=== PATIENT | male | born 1940 | race Caucasian/White ===

== ENCOUNTER 2016-05-09 08:11 | Outpatient (RCR) | payer MEDICARE ==
--- OUTSIDE RECORDS SUMMARY | 2016-03-28 08:13 | XMS REPORT | Continuity of Care Document ---
Author Author [facility] Organization [facility] Address Unknown Phone Unavailable Care Team Providers Care [employer] Developer Name Role Phone Faizan Lin PCP [phone] Source Comments Some departments are not documenting in the electronic medical record. If you do not see the information that you expected, contact Release of Information in the Health Information Management department at [phone] for further assistance in locating additional records.[facility] Active Allergies and Adverse Reactions Allergen Noted Date Severity Reactions Comments Adhesive 01/06/2013 High BLISTERS Skin tears Current Medications Prescription Sig. Disp. Refills Start End Date Status Date calcium carbonate Take 1,250 mg by mouth Active (OS-RANJIT) 1250 mg tablet daily. ketoconazole (NIZORAL) 2 Apply to affected area 120 mL 3 02/04/20 Active % topical shampoo three times weekly. Apply 15 to scalp three times a week traMADol (ULTRAM) 50 mg Take 1 Tab by mouth every 30 Tab 1 04/02/20 Active tablet 6 hours as needed for 15 Pain. tamsulosin (FLOMAX) 0.4 Take 1 Cap by mouth daily 30 Cap 11 04/07/20 Active mg capsule after breakfast. 15 amLODIPine (NORVASC) 10 Take 1 Tab by mouth 30 Tab 11 04/07/20 Active mg tablet daily. 15 doxazosin (CARDURA) 2 mg Take 1 Tab by mouth 30 Tab 0 06/03/19 Active tablet daily. 16 atorvastatin (LIPITOR) 10 Take 1 Tab by mouth 90 Tab 3 07/09/19 Active mg tablet daily. 16 aspirin 81 mg chewable Take 1 Tab by mouth 30 Tab 5 07/26/19 Active tablet daily. 16 furosemide (LASIX) 40 mg Take 1 Tab by mouth every 90 Tab 3 07/22/19 Active tablet morning. 16 everolimus (ZORTRESS) 0.5 Take 2 Tabs by mouth 11/10/19 Active mg tablet twice daily. 16 ciprofloxacin HCl (CIPRO) Take 250 mg by mouth Active 250 mg tablet twice daily. Pt takes for 10 days, 2 days remaining. carvedilol (COREG) 6.25 TAKE ONE TABLET BY MOUTH 60 Tab 1 01/14/20 Active mg tablet TWICE A DAY [address] TAKE ONE TABLET BY MOUTH 30 Tab 1 01/14/20 Active (PROTONIX) 40 mg tablet DAILY 16 niacin (NIACOR) 500 mg Take 1 Tab by mouth 270 Tab 3 02/01/20 Active tablet daily. Take with food. 16 tretinoin (RETIN-A) 0.1 % Apply topically to 20 g 3 02/25/20 Active topical cream affected area every 7 16 days. Weekly Active Problems Problem Noted Date Mohs defect of antihelix of right ear 10/13/2015 Skin cancer 09/20/2015 Nephrotic range proteinuria 07/25/2015 Anasarca 07/25/2015 History of biopsy 07/21/2015 Status post biopsy of kidney 07/21/2015 Mohs defect of auricle of left ear 04/07/2015 Nodule of flexor tendon sheath 11/27/2013 Pancreatitis, acute 09/14/2013 Overview: 09/15/13 Amylase 1092 Lipase 907 Inguinal hernia 03/04/2013 Postoperative ileus 01/10/2013 Overview: 01/09/13: Bowel regimen. Dulcolax suppository. 01/10/13: Dulcolax suppository 6hrs. M/M enema. IR for paracentesis to check for peritonitis. -After starting to vomit, pt was made NPO. KUB. KUB 01/10/13: Marked gaseous distention of small bowel, consistent with SBO. Lucency over right hemidiaphragm, concerning for free intraperitoneal air. IR paracentesis 01/10/13: 3.1L removed. Cultures negative. Cell count negative. 01/11/13: NGT placed overnight. Large output. 01/12/13: Relistor. Replace NGT output with IVF at 0.5:1 ratio. Ascites 01/10/2013 Overview: 17L removed intraoperatively. 01/10/13: IR paracentesis. 3.1L removed. Cultures and cell count negative. Hepatorenal syndrome (HCC) 01/08/2013 Leukocytosis 01/08/2013 Liver transplanted (HCC) 01/07/2013 Overview: -Date of Transplantation: 01/06/13 -Disease: ETOH Explant Pathology: *Explant Pathology: Recipient Liver: Cirrhosis (clinical history of non-alcoholic fatty liver disease) Fatty change 5-10% of hepatocytes. Lymph nodes: There is no evidence of malignancy in two lymph nodes (0/2). Gallbladder: Mild chronic cholecystitis and cholelithiasis. -Surgical technique: OLT with piggyback technique -Anastomosis: Duct to duct -Stent: Yes, 8Fr -Induction: 500mg Solumedrol, Simulect Intraop and POD#4 -Immunosuppression (Start date/goal/therapeutic/rejection/delirium): FK 01/10/13. Goal 10-12. -CMV: D+/R-; Valcyte -PJP: Bactrim DS MWF -Biliary/Arterial issues, hematoma/hemorrhage: Hematoma U/S 01/07/13: Mildly enlarged liver transplant without biliary ductal dilatation. Patent hepatic vasculature. High intrahepatic arterial resistance common with diffuse transplant edema. Elevated portal venous velocities with turbulent flow consistent with normal postop anastomotic edema. Small perihepatic fluid collection consistent with postop hematoma. Mild pelvic ascites. Incompletely decompressed bladder with indwelling forbes. Trace left pleural effusion. -Infection (pneumonia, UTI, Wound, Abscess): No postoperative infection -Reintubation: None -Return to OR: None -Delays to discharge: No problems with medication access, 24hr home care or residential placement. -Follow up: Transplant Surgery in 2 weeks. Hepatology in 3 months Endocrinology Immunosuppression (HCC) 01/07/2013 Overview: 01/06/13: Induced with 500mg Solumedrol and Simulect. Postop steroid taper and Cellcept 500mg BID. 01/07/13: Steroid taper. Change Cellcept to Myfortic 360mg BID. Hold CNI. 01/10/13: Simulect today. Start Prograf 2mg BID tonight. Goal 10-12. First level 01/12/13. 01/12/13: Thymo 100mg with premeds. 01/14/13: Increase prograf to 4mg BID. 01/15/13: Increase prograf to 6mg BID Thrombocytopenia (HCC) 01/07/2013 Volume overload 11/07/2012 Secondary hyperparathyroidism (of renal origin) 09/03/2012 Unspecified vitamin D deficiency 09/03/2012 Hypertension 08/02/2012 Overview: 01/09/13: Norvasc 5mg daily Abnormal cardiovascular stress test 08/02/2012 Overview: 08/02/12: No obstructive CAD per cath by Dr. Bruner History of alcohol abuse 08/02/2012 History of esophageal varices 08/02/2012 Type II diabetes mellitus (HCC) 08/02/2012 Overview: 01/06/13: Postop insulin gtt per [place] protocol. 01/07/13: Consult endocrine for DM management. Continue insulin gtt. 01/08/13: Stop insulin gtt. Lantus 50u + [facility] 01/09/13: [facility]. Novolog 8u with meals. Lantus 50u daily 01/10/13: Decrease Lantus to 20u. Liver failure (HCC) 08/02/2012 HTN (hypertension) 08/02/2012 Renal insufficiency 08/02/2012 Hypoglycemia 07/25/2012 Hepatic encephalopathy (HCC) 07/25/2012 Overview: Controlled with Lactulose and Rifaxamin Personal history of ascites 06/06/2012 Overview: Per patient report on admission, usually has 8-10L ascites drained weekly. Last paracentesis 01/01/13 in which 8L was removed. CKD (chronic kidney disease) 06/06/2012 Overview: Creatinine on admission 3.03 End-stage liver disease (HCC) 06/06/2012 Resolved Problems Problem Noted Date Resolved Date Acute kidney insufficiency 07/25/2012 08/02/2012 Ascites 06/06/2012 08/02/2012 Most Recent Encounters Date Type Specialty Providers Description 04/07/2016 [facility] General Surgery Johnny Archer MD BCC (basal cell carcinoma Encounter of skin) 03/27/2016 Refill Gastroenterology Bridget Yip MD 03/24/2016 Scan Only Transplant Surgery Eva Rothman 03/21/2016 Orders Only Transplant Surgery Pricilla Merino Liver replaced by transplant (HCC) 03/15/2016 Orders Only Transplant Surgery Minerva Pizano Liver replaced by transplant (HCC) 03/15/2016 Orders Only Transplant Surgery Pricilla Merino Liver replaced by transplant (HCC) 03/03/2016 Orders Only Transplant Surgery Wilma Mckeon Liver replaced by transplant (HCC) 03/01/2016 Orders Only Transplant Surgery Minerva Pizano Liver replaced by transplant (HCC) 02/29/2016 Orders Only Transplant Surgery Wilma Mckeon Liver replaced by transplant (HCC) 02/28/2016 Orders Only Transplant Surgery Pricilla Merino Liver replaced by transplant (HCC) 02/25/2016 Office Visit Dermatology Nidia Rosales MD Actinic keratoses (Primary Dx); History of basal cell carcinoma; H/O squamous cell carcinoma; Immunosuppression (HCC) 02/25/2016 Orders Only Transplant Surgery Faith Fry BSN Liver replaced by transplant (HCC) (Primary Dx) 02/16/2016 Orders Only Transplant Surgery Minerva Pizano Liver replaced by transplant (HCC) 02/16/2016 Orders Only Transplant Surgery Pricilla Merino Liver replaced by transplant (HCC) 02/14/2016 Prep for Case Plastic Surgery Johnny Archer MD 02/10/2016 Office Visit General Surgery Fortino Hamm MD CKD (chronic kidney disease), stage 5 (HCC) (Primary Dx) 02/07/2016 Orders Only Transplant Surgery Minerva Pizano Liver replaced by transplant (HCC) 02/03/2016 Orders Only Transplant Surgery Wilma Mckeon Liver replaced by transplant (HCC) 02/02/2016 Orders Only Transplant Surgery Wilma Mckeon Liver replaced by transplant (HCC) 02/01/2016 Office Visit Dermatology Rah Franks MD Actinic keratoses (Primary Dx); Multiple benign melanocytic nevi; History of basal cell carcinoma; H/O squamous cell carcinoma; Neoplasm of uncertain behavior of skin; Immunosuppression (HCC) 02/01/2016 [facility] Rah Franks MD Neoplasm of uncertain Encounter behavior of skin 01/27/2016 Office Visit Nephrology Lida Yang MBBS CKD (chronic kidney disease), stage 4 (severe) (HCC) (Primary Dx); Essential hypertension with goal blood pressure less than 140/90; Proteinuria; Liver transplanted (HCC) 01/24/2016 Orders Only Transplant Surgery Minerva Pizano Liver replaced by transplant (HCC) 01/24/2016 Orders Only Transplant Surgery Elizabeth Goetz History of liver transplant (HCC) 01/24/2016 Scan Only Transplant Surgery Regan Brock MD 01/21/2016 Orders Only Transplant Surgery Pricilla Merino History of liver transplant (HCC) 01/20/2016 Telephone Transplant Surgery Regan Brock MD Other - voice mail 01/20/2016 Telephone Transplant Surgery Regan Brock MD Other - voice mail 01/18/2016 Orders Only Transplant Surgery Elizabeth Goetz Liver replaced by transplant (HCC) 01/14/2016 Refill Gastroenterology Bridget Yip MD 01/14/2016 Refill Nephrology Lida Yang MBBS 01/13/2016 Office Visit General Surgery Fortino Hamm MD ESRD (end stage renal disease) (HCC) (Primary Dx); Kidney stone; CKD (chronic kidney disease), stage 4 (severe) (HCC) 01/12/2016 Orders Only Transplant Surgery Elizabeth Goetz Liver replaced by transplant (HCC) 01/03/2016 Orders Only Transplant Surgery Elizabeth Goetz Liver replaced by transplant (HCC) 12/29/2015 Orders Only Transplant Surgery Elizabeth Goetz Liver replaced by transplant (HCC) Immunizations Name Dates Previously Given Next Due Flu Vaccine=>3 YO 02/19/2015 (Historical) Pneumococcal Vaccine 02/19/2015 (23-Leia Adult) Social History Tobacco Use Types Packs/Day Years Used Date Former Smoker Quit: 05/28/1988 Smokeless Tobacco: Never Used Tobacco Cessation: Counseling Given: Yes Comments: Alcohol Use Drinks/Week oz/Week Comments No None since 2009 Last Filed Vital Signs Vital Sign Reading Time Taken Blood Pressure 159/63 02/10/2016 9:26 AM CDT Pulse 73 02/10/2016 9:26 AM CDT Temperature 36.6 C (97.8 F) 02/10/2016 9:26 AM CDT Respiratory Rate 14 02/10/2016 9:26 AM CDT Height 1.88 m (6' 2") 02/25/2016 1:12 PM CDT Weight 115.667 kg (255 lb) 02/25/2016 1:12 PM CDT Body Mass Index 32.73 02/25/2016 1:12 PM CDT Oxygen Saturation 95% 12/21/2015 10:00 AM CDT Plan of Care Date Type Specialty Providers Description 04/07/2016 Surgery General Surgery Norris Henriquez MD MOHS CLOSURE RIGHT [address] [place] [place] [address] [phone] (Fax) 04/07/2016 Appointment Dermatology Fabiana Rodriguez MD [address] [place] [address] [phone] (Fax) 05/04/2016 Appointment Nephrology Lida Yang MBBS [address] [place] [address] [phone] (Fax) 05/15/2016 Appointment Transplant Surgery Regan Brock MD [id number] [place] [address] [phone] (Fax) Health Maintenance Due Date Last Done Comments Physical (Comprehensive) 1947 Exam Pertussis Vaccine 1953 Tetanus Vaccine 09/29/1959 Dilated Eye Exam 1960 Foot Exam 1960 Shingles Vaccine 2002 Microalbumin 07/31/2015 07/30/2014, 10/31/2012, 08/29/2012 Additional history exists Influenza Vaccine 01/27/2016 02/19/2015, 02/28/2013 Prevnar/Pneumovax (#2) 02/20/2016 02/19/2015 Hba1c 03/25/2016 09/24/2015, 07/21/2015, 05/18/2014 Additional history exists Colorectal Cancer 11/04/2020 11/04/2010, 08/05/2010, 07/08/2010 Screening Procedures from Last 3 Months Procedure Name Priority Date/Time Associated Diagnosis Comments MIRELA VASC DUPLEX SCAN OF Routine 02/14/2016 ESRD (end stage renal HEMODIALYSIS GRAFT 12:00 AM CDT disease) (HCC) Results from Last 3 Months EVEROLIMUS BLOOD (03/14/2016 7:40 AM)Only the most recent of 7 results within the time period is included. Component Value Range Everolimus 7.6 3.0-8.0 ng/mL Narrative Outside Lab Verified by Pricilla Merino on 03/21/2016. GGTP (03/14/2016 7:40 AM)Only the most recent of 8 results within the time period is included. Component Value Range GGTP 11 0-65 U/L Specimen Blood Narrative Outside Lab Verified by Minerva Lima on 03/15/2016. PHOSPHORUS (03/14/2016 7:40 AM)Only the most recent of 7 results within the time period is included. Component Value Range Phosphorus 4.5 2.3-4.7 MG/DL Specimen Blood Narrative Outside Lab Verified by Pricilla Merino on 03/15/2016. MAGNESIUM (03/14/2016 7:40 AM)Only the most recent of 7 results within the time period is included. Component Value Range Magnesium 2.1 1.8-2.4 MG/DL Specimen Blood Narrative Outside Lab Verified by Pricilla Merino on 03/15/2016. COMPREHENSIVE METABOLIC PANEL (03/14/2016 7:40 AM)Only the most recent of 7 results within the time period is included. Component Value Range Sodium 141 135-145 MMOL/L Potassium 4.0 3.6-5.0 MMOL/L Chloride 110 (H) 98-107 MMOL/L CO2 20 (L) 21-32 MMOL/L Anion Gap 11 5-14 MMOL/L Blood Urea Nitrogen 47 (H) 7-18 MG/DL Creatinine 5.66 (H) 0.60-1.30 MG/DL eGFR Non 10 mL/min/1.73 M2 Glucose 133 (H) 70-105 H Calcium 9.0 8.5-10.1 MG/DL Total Bilirubin 0.4 0.1-1.0 MG/DL Alk Phosphatase 93 40-136 U/L AST (SGOT) 12 5-34 U/L ALT (SGPT) 15 0-55 U/L Total Protein 6.7 6.4-8.2 G/DL Albumin 3.9 3.2-4.5 G/DL Specimen Blood Narrative Outside Lab Verified by Pricilla Merino on 03/15/2016. CBC AND DIFF (03/14/2016 7:40 AM)Only the most recent of 7 results within the time period is included. Component Value Range White Blood Cells 3.9 (L) 4.3-11.0 10^3/uL RBC 3.73 (L) 4.35-5.85 10^6/uL Hemoglobin 9.9 (L) 13.3-17.7 G/DL Hematocrit 30 (L) 40-54 MCV 80 80-99 FL MCH 27 25-34 PG MCHC 33 32-36 G/DL RDW 15.9 (H) 10.0-14.5 % Platelet Count 203 130-400 10^3/uL Neutrophils 67 42-75 % Lymphocytes 19 12-44 % Monocytes 10 0-12 % Eosinophil 4 0-10 % Basophil 0 0-10 % Absolute Neutrophil Count 2.6 1.8-7.8 Absolute Lymph Count 0.7 (L) 1.0-4.0 Absolute Monocyte Count 0.4 0.0-1.0 Absolute Eosinophil Count 0.2 0.0-0.3 10^3/uL Absolute Basophil Count 0.0 0.0-0.1 10^3/uL Specimen Blood Narrative Outside Lab Verified by Pricilla Meirno on 03/15/2016. SKIN LESION DESTRUCTION (02/25/2016 1:31 PM)MIRELA VASC DUPLEX SCAN OF HEMODIALYSIS GRAFT (02/14/2016)SKIN LESION DESTRUCTION (02/01/2016 3:53 PM) SKIN BIOPSY/EXCISION OF SKIN LESION (02/01/2016 3:52 PM)SURGICAL PATHOLOGY (02/01/2016 9:07 AM) Component Value Range PATHOLOGY REPORT [email or web address] Guille Briones MD, PhD, Director of Anatomic Pathology Department of Pathology and Laboratory Medicine [address] [place] [id number] Surgical Pathology Office: [phone] SURGICAL PATHOLOGY REPORT NAME: LIZ HENDRICKS SURG PATH #: [id number] MR #: [id number] SPECIMEN CLASS: SR BILLING #: [id number] ALT ID #: LOCATION: DERM DATE OF PROCEDURE: 02/01/2016 AGE: 75 SEX: M DATE RECEIVED: 02/02/2016 : 1940 TIME RECEIVED: 09:07 PHYSICIAN: RAH FRANKS DATE OF REPORT: 02/03/2016 COPY TO: NIDIA ROSALES MD DATE OF PRINTIN02/03/2016 ################################################## ###################### Final Diagnosis: A. Right lateral scalp: --- Infiltrative basal cell carcinoma, deep margin positive Attestation: By this signature, I attest that I have personally formulated the final interpretation expressed in this report and that the above diagnosis is based upon my examination of the slides and/or other material indicated in this report. +++Electronically Signed Out By+++ gf/02/03/2016 Interpreted by: Alexis Dowling MD, Attending Physician 02/03/2016 ################################################## ###################### Material Received: A: right lateral scalp History: A. SCC > BCC > AK Gross Description: A. Labeled "right lateral scalp" is a 1.1 x 0.9 x 0.1 cm shave, trisected, all in A1. (jdn) jdn2/02/02/2016
[2016-03-28 08:24] LABS: BASOPHILS % (AUTO) 0 % (0-10); EOSINOPHILS # (AUTO) 0.1 10^3/uL (0.0-0.3); EOSINOPHILS % (AUTO) 2 % (0-10); LYMPHOCYTES # (AUTO) 0.7 X 10^3 (1.0-4.0); LYMPHOCYTES % (AUTO) 19 % (12-44); MEAN CORPUSCULAR HEMOGLOBIN 26 PG (25-34); MEAN CORPUSCULAR HGB CONC 33 G/DL (32-36); MEAN CORPUSCULAR VOLUME 79 FL (80-99); MEAN PLATELET VOLUME 8.8 FL (7.4-10.4); MONOCYTES # (AUTO) 0.3 X 10^3 (0.0-1.0); MONOCYTES % (AUTO) 8 % (0-12); NEUTROPHILS # (AUTO) 2.6 X 10^3 (1.8-7.8); NEUTROPHILS % (AUTO) 71 % (42-75); PLATELET COUNT 207 10^3/uL (130-400); RED BLOOD COUNT 3.92 10^6/uL (4.35-5.85); RED CELL DISTRIBUTION WIDTH 15.2 % (10.0-14.5); WHITE BLOOD COUNT 3.7 10^3/uL (4.3-11.0)
[2016-03-28 08:46] LABS: ALBUMIN 3.8 G/DL (3.2-4.5); BILIRUBIN,TOTAL 0.4 MG/DL (0.1-1.0); CREATININE SERUM 5.45 MG/DL (0.60-1.30); MAGNESIUM 2.3 MG/DL (1.8-2.4); PHOSPHORUS 4.6 MG/DL (2.3-4.7); POTASSIUM 4.3 MMOL/L (3.6-5.0); TOTAL PROTEIN 6.5 G/DL (6.4-8.2)
[2016-04-02 15:24] LABS: EVEROLIMUS 10.3 ng/mL (***)
[2016-04-11 08:44] LABS: BASOPHILS % (AUTO) 0 % (0-10); EOSINOPHILS # (AUTO) 0.1 10^3/uL (0.0-0.3); EOSINOPHILS % (AUTO) 4 % (0-10); LYMPHOCYTES # (AUTO) 0.7 X 10^3 (1.0-4.0); LYMPHOCYTES % (AUTO) 22 % (12-44); MEAN CORPUSCULAR HEMOGLOBIN 26 PG (25-34); MEAN CORPUSCULAR HGB CONC 33 G/DL (32-36); MEAN CORPUSCULAR VOLUME 80 FL (80-99); MEAN PLATELET VOLUME 8.5 FL (7.4-10.4); MONOCYTES # (AUTO) 0.4 X 10^3 (0.0-1.0); MONOCYTES % (AUTO) 13 % (0-12); NEUTROPHILS # (AUTO) 2.1 X 10^3 (1.8-7.8); NEUTROPHILS % (AUTO) 62 % (42-75); PLATELET COUNT 200 10^3/uL (130-400); RED BLOOD COUNT 3.73 10^6/uL (4.35-5.85); RED CELL DISTRIBUTION WIDTH 15.2 % (10.0-14.5); WHITE BLOOD COUNT 3.4 10^3/uL (4.3-11.0)
[2016-04-11 09:06] LABS: ALANINE AMINOTRANSFERASE < 6 U/L (0-55); ALBUMIN 3.7 G/DL (3.2-4.5); ANION GAP 11 MMOL/L (5-14); ASPARTATE AMINO TRANSFERASE 16 U/L (5-34); BILIRUBIN,TOTAL 0.3 MG/DL (0.1-1.0); BLOOD UREA NITROGEN 41 MG/DL (7-18); BUN/CREATININE RATIO 8; CALCIUM 8.8 MG/DL (8.5-10.1); CARBON DIOXIDE 22 MMOL/L (21-32); CHLORIDE 108 MMOL/L (98-107); CREATININE SERUM 4.92 MG/DL (0.60-1.30); GFR ESTIMATED 12; GLUCOSE 125 MG/DL (70-105); MAGNESIUM 1.9 MG/DL (1.8-2.4); PHOSPHORUS 5.3 MG/DL (2.3-4.7); POTASSIUM 3.9 MMOL/L (3.6-5.0); SODIUM 141 MMOL/L (135-145); TOTAL PROTEIN 6.5 G/DL (6.4-8.2)
[2016-04-14 15:23] LABS: EVEROLIMUS 6.7 ng/mL (***)
[2016-04-25 08:29] LABS: BASOPHILS % (AUTO) 0 % (0-10); EOSINOPHILS # (AUTO) 0.1 10^3/uL (0.0-0.3); EOSINOPHILS % (AUTO) 4 % (0-10); LYMPHOCYTES # (AUTO) 0.8 X 10^3 (1.0-4.0); LYMPHOCYTES % (AUTO) 25 % (12-44); MEAN CORPUSCULAR HEMOGLOBIN 26 PG (25-34); MEAN CORPUSCULAR HGB CONC 33 G/DL (32-36); MEAN CORPUSCULAR VOLUME 79 FL (80-99); MEAN PLATELET VOLUME 8.5 FL (7.4-10.4); MONOCYTES # (AUTO) 0.3 X 10^3 (0.0-1.0); MONOCYTES % (AUTO) 9 % (0-12); NEUTROPHILS % (AUTO) 62 % (42-75); PLATELET COUNT 191 10^3/uL (130-400); RED BLOOD COUNT 3.99 10^6/uL (4.35-5.85); RED CELL DISTRIBUTION WIDTH 15.4 % (10.0-14.5); WHITE BLOOD COUNT 3.3 10^3/uL (4.3-11.0)
[2016-04-25 08:46] LABS: ALBUMIN 3.9 G/DL (3.2-4.5); BILIRUBIN,TOTAL 0.4 MG/DL (0.1-1.0); CALCIUM 8.8 MG/DL (8.5-10.1); CREATININE SERUM 5.77 MG/DL (0.60-1.30); MAGNESIUM 2.2 MG/DL (1.8-2.4); PHOSPHORUS 4.8 MG/DL (2.3-4.7); TOTAL PROTEIN 6.4 G/DL (6.4-8.2)
[2016-04-30 10:48] LABS: EVEROLIMUS 8.4 ng/mL (***)
[~2016-05-09 08:11] MED LIST: ACET325T49 PO; AMLO10TA2 PO; ASPI-586 PO; ASPI-983 PO; ATOR10TA66 PO; CALTRATE 600 +1 EACH PO; CARV6.252 PO; D50KC PO; DIPH50VI2 IV; DOXA2TAB PO; DOXA2TAB2 PO; DOXA4TAB2 PO; ENOX30DI4 SC; EVER0.5T PO; FLUO40CR8 TOP; FURO40TA4 PO; GLIM2TAB PO; HYDR-3922 PO; KETO120S11 TOP; LACT10SO33 PO; LORA10TA76 PO; MORP5VIA IV; MULT-608 PO; MYCO360T PO; Multivitamins/Minerals Therap PO; ONDA4VIA28 IV; OXYC-471 PO; OXYC5TAB49 PO; PNT40TEC PO; SENN-20 PO; SPIR100T28 PO; TACR1CAP PO; TAMS0.4C2 PO; TRAM50TA2 PO; TRAZ-28 PO; XIFAXAN PO; [UNRECOGNIZED DRUG - OTHER]; [UNRECOGNIZED DRUG - OTHER]
[2016-05-09 08:23] LABS: BASOPHILS % (AUTO) 0 % (0-10); EOSINOPHILS # (AUTO) 0.1 10^3/uL (0.0-0.3); EOSINOPHILS % (AUTO) 2 % (0-10); LYMPHOCYTES # (AUTO) 0.9 X 10^3 (1.0-4.0); LYMPHOCYTES % (AUTO) 24 % (12-44); MEAN CORPUSCULAR HEMOGLOBIN 26 PG (25-34); MEAN CORPUSCULAR HGB CONC 33 G/DL (32-36); MEAN CORPUSCULAR VOLUME 79 FL (80-99); MEAN PLATELET VOLUME 8.6 FL (7.4-10.4); MONOCYTES # (AUTO) 0.4 X 10^3 (0.0-1.0); MONOCYTES % (AUTO) 10 % (0-12); NEUTROPHILS # (AUTO) 2.5 X 10^3 (1.8-7.8); NEUTROPHILS % (AUTO) 64 % (42-75); PLATELET COUNT 182 10^3/uL (130-400); RED BLOOD COUNT 4.02 10^6/uL (4.35-5.85); RED CELL DISTRIBUTION WIDTH 15.7 % (10.0-14.5); WHITE BLOOD COUNT 3.9 10^3/uL (4.3-11.0)
[2016-05-09 08:43] LABS: BILIRUBIN,TOTAL 0.4 MG/DL (0.1-1.0); CALCIUM 8.9 MG/DL (8.5-10.1); CREATININE SERUM 6.33 MG/DL (0.60-1.30); MAGNESIUM 2.2 MG/DL (1.8-2.4); PHOSPHORUS 5.6 MG/DL (2.3-4.7); POTASSIUM 3.8 MMOL/L (3.6-5.0); TOTAL PROTEIN 6.9 G/DL (6.4-8.2)
[2016-05-15 09:45] LABS: EVEROLIMUS 7.5 ng/mL (***)
== END 2016-06-26 | disposition home or self-care (01) ==
LOC: LAB 08:11
PROVIDERS: ATTEND Internal Medicine
DX: Z48.298 Encounter for aftercare following other organ transplant (principal); Z94.4 Liver transplant status
CPT/HCPCS: 36415; 80053; 80061; 80299; 81000; 82306; 82977; 83735; 84100; 85025

== ENCOUNTER → 2016-06-09 | Outpatient (CLI) | payer MEDICARE ==
--- OUTSIDE RECORDS SUMMARY | 2016-06-09 13:22 | XMS REPORT | Continuity of Care Document ---
Author Author [facility] Organization [facility] Address Unknown Phone Unavailable Care Team Providers Care Movie Operator Name Role Phone Faizan Lin PCP [phone] Source Comments Some departments are not documenting in the electronic medical record. If you do not see the information that you expected, contact Release of Information in the Health Information Management department at [phone] for further assistance in locating additional records.[facility] Active Allergies and Adverse Reactions Allergen Noted Date Severity Reactions Comments Adhesive 01/06/2013 High BLISTERS Skin tears Current Medications Prescription Sig. Disp. Refills Start End Date Status Date calcium carbonate Take 1,250 mg by mouth Active (OS-RANJIT) 1250 mg tablet daily. doxazosin (CARDURA) 2 mg Take 1 Tab [...] 11/10/19 Active mg tablet twice daily. 16 niacin (NIACOR) 500 mg Take 1 Tab by mouth 270 Tab 3 02/01/20 Active tablet daily. Take with food. 16 tretinoin (RETIN-A) 0.1 % Apply topically to 20 g 3 02/25/20 Active topical cream affected area every 7 16 days. Weekly carvedilol (COREG) 6.25 TAKE ONE TABLET BY MOUTH 60 Tab 5 04/03/20 Active mg tablet TWICE A DAY 16 amLODIPine (NORVASC) 10 TAKE ONE TABLET BY MOUTH 30 Tab 10 04/10/20 Active mg tablet DAILY 16 tamsulosin (FLOMAX) 0.4 TAKE ONE CAPSULE BY MOUTH 30 Cap 11 05/04/20 Active mg capsule DAILY AFTER BREAKFAST 16 everolimus (ZORTRESS) 0.5 Take 2 Tabs by mouth 120 Tab 11 05/24/20 Active mg tablet twice daily. Indications: 16 PREVENTION OF LIVER TRANSPLANT REJECTION pantoprazole DR TAKE ONE TABLET BY MOUTH 30 Tab 0 05/30/19 Active (PROTONIX) 40 mg tablet DAILY 17 PEG 1955-Aetphznvtrmd-Dle Take per prep 2 Each 0 06/02/19 Active C (MOVIPREP) instructions 17 100-7.5-2.691 gram pwpk PEG 3350-Electrolytes Mix as directed on 4000 mL 0 06/05/19 Active (GOLYTELY) oral solution package. Drink 240ml 17 (8oz) every 10 minutes until gone. Refrigerate once mixed. ketoconazole (NIZORAL) 2 Apply to affected area 120 mL 3 02/04/20 05/15/20 Discontin % topical shampoo three times weekly. Apply 15 16 ued to scalp three times a week everolimus (ZORTRESS) 0.5 Take 4 Tabs by mouth 240 Tab 11 04/30/20 05/22/20 Discontin mg tablet twice daily. [address] TAKE ONE TABLET BY MOUTH 30 Tab 0 05/02/20 05/29/19 Discontin (PROTONIX) 40 mg tablet DAILY 16 17 ued Active Problems Problem Noted Date Mohs defect of right scalp 04/07/2016 Mohs defect of antihelix of right ear [...] with medication access, 24hr home care or local company intermodal truck driver placement. -Follow up: Transplant Surgery in 2 [...] 08/02/2012 Overview: 01/06/13: Postop insulin gtt per [place] protocol. 01/07/13: Consult endocrine for DM management. [...] Recent Encounters Date Type Specialty Providers Description 07/14/2016 Hospital Regan Brock MD Colon cancer screening Encounter 06/09/2016 Telephone Transplant Surgery Regan Brock MD Other - colonoscopy 06/05/2016 Telephone Transplant Surgery Jennifer Perez LPN Medication Change Request 06/05/2016 Orders Only Transplant Surgery Jennifer Perez LPN 06/02/2016 Telephone Transplant Surgery Regan Brock MD Other 06/01/2016 Telephone Nephrology Lida Yang MBBS Other - Dialysis 05/31/2016 Telephone Transplant Surgery Rebeca Rosario Procedure - Bone Density scheduled 05/30/2016 Office Visit Dermatology Mohinder Snider MD Actinic keratosis (Primary Dx); Seborrheic dermatitis 05/30/2016 Telephone Transplant Surgery Regan Brock MD Other - return call 05/29/2016 Refill Gastroenterology Bridget Yip MD 05/26/2016 Orders Only Transplant Surgery Luis Felipe Fry BSN Osteoporosis screening (Primary Dx); Disorder of bone density and structure, unspecified 05/22/2016 Refill Transplant Surgery Regan Brock MD Liver replaced by transplant (HCC) (Primary Dx) 05/18/2016 Orders Only Transplant Surgery Minerva Pizano Liver replaced by transplant (HCC) 05/17/2016 Orders Only Transplant Surgery Luis Felipe Fry BSN Liver replaced by transplant (HCC) (Primary Dx) 05/15/2016 Office Visit Transplant Surgery Regan Brock MD Liver transplanted (HCC) (Primary Dx) 05/15/2016 Prep for Case Transplant Surgery Luis Felipe Fry BSN 05/12/2016 Orders Only Transplant Surgery Chacorta Hdz Liver replaced by transplant (HCC) 05/11/2016 Scan Only Transplant Surgery Regan Brock MD 05/11/2016 Telephone Transplant Surgery Rebeca Rosario Patient Reminder Call 05/10/2016 Orders Only Transplant Surgery Pricilla Merino Liver replaced by transplant (HCC) 05/08/2016 Office Visit Dermatology Luis Felipe Palomino Immunosuppressed status ([facility]) (Primary Dx); Actinic keratosis; Neoplasm of uncertain behavior of skin 05/08/2016 [facility] Rah Franks MD Neoplasm of uncertain Encounter behavior of skin 05/04/2016 Office Visit Nephrology Lida Yang MBBS CKD (chronic kidney disease), stage 5 (HCC) (Primary Dx); Proteinuria; Essential hypertension; Edema, unspecified type 05/02/2016 Orders Only Transplant Surgery Kiara Merinoyla Liver replaced by transplant (HCC) 05/02/2016 Refill Transplant Surgery Regan Brock MD 05/02/2016 Refill Gastroenterology Bridget Yip MD 04/26/2016 Office Visit Plastic Surgery Norris Mane MD Skin cancer (Primary Dx); Mohs defect of right scalp 04/26/2016 Orders Only Transplant Surgery Kiara Merinoyla Liver replaced by transplant (HCC) 04/25/2016 Orders Only Transplant Surgery Wilma Mckeon Liver replaced by transplant (HCC) 04/17/2016 Orders Only Transplant Surgery Minerva Pizano Liver replaced by transplant (HCC) 04/17/2016 Orders Only Transplant Surgery Kiara Merinoyla Liver replaced by transplant (HCC) 04/13/2016 Orders Only Transplant Surgery Luis Felipe Fry BSN Liver replaced by transplant (HCC) (Primary Dx) 04/12/2016 Office Visit Plastic Surgery Norris Mane MD Mohs defect of right scalp (Primary Dx) 04/12/2016 Orders Only Transplant Surgery Kiara Merinoyla Liver replaced by transplant (HCC); Disorder of bone density and structure, unspecified 04/11/2016 Orders Only Transplant Surgery Wilma Mckeon Liver replaced by transplant (HCC) 04/10/2016 Refill Transplant Surgery Regan Brock MD 04/07/2016 Procedure visit Dermatology Mae, Basal cell carcinoma of MD Jasmin scalp (Primary Dx) 04/07/2016 Surgery Norris Mane MD MOHS CLOSURE RIGHT LATERAL SCALP WITH LOCAL TISSUE REARRANGEMENT 15CM 04/06/2016 Anesthesia Altenhofen, Gregoria, Event SRNA 04/04/2016 Telephone Dermatology Fabiana Rodriguez MD Provider Discussion About Patient 04/03/2016 Orders Only Transplant Surgery MerinoKiaraPricilla Liver replaced by transplant (HCC) 04/03/2016 Refill Nephrology Lida Yang MBBS 04/03/2016 Telephone Transplant Surgery Luis Felipe Fry BSN Labs Only 04/03/2016 Orders Only Transplant Surgery Luis Felipe Fry BSN Liver replaced by transplant (HCC) (Primary Dx); Disorder of bone density and structure, unspecified 03/30/2016 Orders Only Transplant Surgery Pricilla Merino Liver replaced by transplant (HCC) 03/29/2016 Orders Only Transplant Surgery Minerva Pizano Liver replaced by transplant (HCC) 03/28/2016 Documentation Transplant Surgery AbrahamRebeca frias 03/27/2016 Refill Gastroenterology Bridget Yip MD 03/24/2016 Scan Only Transplant Surgery Eva Rothman 03/21/2016 Orders Only Transplant Surgery Pricilla Merino Liver replaced by transplant (HCC) 03/15/2016 Orders Only Transplant Surgery Minerva Pizano Liver replaced by transplant (HCC) 03/15/2016 Orders Only Transplant Surgery Pricilla Merino Liver replaced by transplant (HCC) Immunizations Name [...] Vital Sign Reading Time Taken Blood Pressure 145/65 05/15/2016 10:57 AM CUSTOMER SUPPORT COORDINATOR Pulse 83 05/15/2016 10:57 AM CUSTOMER SUPPORT COORDINATOR Temperature 36.7 C (98 F) 05/15/2016 10:57 AM CUSTOMER SUPPORT COORDINATOR Respiratory Rate 16 05/15/2016 10:57 AM CUSTOMER SUPPORT COORDINATOR Height 1.88 m (6' 2") 05/30/2016 2:58 PM CUSTOMER SUPPORT COORDINATOR Weight 115.667 kg (255 lb) 05/30/2016 2:58 PM CUSTOMER SUPPORT COORDINATOR Body Mass Index 32.73 05/30/2016 2:58 PM CUSTOMER SUPPORT COORDINATOR Oxygen Saturation 95% 05/15/2016 10:57 AM CUSTOMER SUPPORT COORDINATOR Plan of Care Date Type Specialty Providers Description 06/27/2016 Appointment Dermatology Rah Franks MD [address] [facility] [address] [place] [address] [phone] (Fax) 07/14/2016 Surgery Regan Brock MD COLONOSCOPY [address] [facility] [address] [place] [address] [phone] (Fax) 05/14/2017 Appointment Transplant Surgery Regan Brock MD [address] [facility] [address] [place] [address] [phone] (Fax) Health Maintenance Due Date Last Done [...] Procedure Name Priority Date/Time Associated Diagnosis Comments PROCEDURES-SCAN 04/10/2016 Results for this 1:45 PM CUSTOMER SUPPORT COORDINATOR procedure are in the results section. MOHS CLOSURE RIGHT 04/07/2016 BCC (basal cell carcinoma LATERAL SCALP WITH LOCAL 1:35 PM CUSTOMER SUPPORT COORDINATOR of skin) TISSUE REARRANGEMENT 15CM Special Needs 04/04 PER CHANGE FORM REC'D ON 03/20, PROVIDER CHANGED FROM DR. BAXTER TO DR. MANE BY ON 03/20 @ 1437 - C. KIERSTEN FERNÁNDEZ ([id number]) Results from Last 3 Months SKIN LESION DESTRUCTION (05/30/2016 3:18 PM)EVEROLIMUS BLOOD (05/09/2016 8:15 AM)Only the most recent of 5 results within the time period is included. Component Value Range Everolimus 7.5 ng/mL Narrative Outside Lab Verified by Minerva Lima on 05/17/2016. GGTP (05/09/2016 8:15 AM)Only the most recent of 5 results within the time period is included. Component Value Range GGTP 10 0-65 U/L Specimen Blood Narrative Outside Lab Verified by Chacorta Hdz on 05/12/2016. PHOSPHORUS (05/09/2016 8:15 AM)Only the most recent of 5 results within the time period is included. Component Value Range Phosphorus 5.6 (H) 2.3-4.7 H Specimen Blood Narrative Outside Lab Verified by Pricilla Merino on 05/10/2016. MAGNESIUM (05/09/2016 8:15 AM)Only the most recent of 5 results within the time period is included. Component Value Range Magnesium 2.2 1.8-2.4 MG/DL Specimen Blood Narrative Outside Lab Verified by Pricilla Merino on 05/10/2016. COMPREHENSIVE METABOLIC PANEL (05/09/2016 8:15 AM)Only the most recent of 5 results within the time period is included. Component Value Range Sodium 140 135-145 MMOL/L Potassium 3.8 3.6-5.0 MMOL/L Chloride 109 (H) 98-107 MMOL/L CO2 18 (L) 21-32 MMOL/L Anion Gap 13 5-14 MMOL/L Blood Urea Nitrogen 53 (H) 7-18 MG/DL Creatinine 6.33 (H) 0.60-1.30 MG/DL eGFR Non 9 mL/min/1.73 M2 Glucose 122 (H) 70-105 H Calcium 8.9 8.5-10.1 MG/DL Total Bilirubin 0.4 0.1-1.0 MG/DL Alk Phosphatase 96 40-136 U/L AST (SGOT) 13 5-34 U/L ALT (SGPT) 14 0-55 U/L Total Protein 6.9 6.4-8.2 G/DL Albumin 4.0 3.2-4.5 G/DL Specimen Blood Narrative Outside Lab Verified by Pricilla Merino on 05/10/2016. CBC AND DIFF (05/09/2016 8:15 AM)Only the most recent of 5 results within the time period is included. Component Value Range White Blood Cells 3.9 (L) 4.3-11.0 10^3/uL RBC 4.02 (L) 4.35-5.85 10^6/uL Hemoglobin 10.6 (L) 13.3-17.7 G/DL Hematocrit 32 (L) 40-54 MCV 79 (L) 80-99 FL MCH 26 25-34 PG MCHC 33 32-36 G/DL RDW 15.7 (H) 10.0-14.5 % Platelet Count 182 130-400 10^3/uL Neutrophils 64 42-75 % Lymphocytes 24 12-44 % Monocytes 10 0-12 % Eosinophil 2 0-10 % Basophil 0 0-10 % Absolute Neutrophil Count 2.5 1.8-7.8 Absolute Lymph Count 0.9 (L) 1.0-4.0 Absolute Monocyte Count 0.4 0.0-1.0 Absolute Eosinophil Count 0.1 0.0-0.3 10^3/uL Absolute Basophil Count 0.0 0.0-0.1 10^3/uL Specimen Blood Narrative Outside Lab Verified by Pricilla Merino on 05/10/2016. [id number]-[id number] (05/08/2016 3:33 PM)SURGICAL PATHOLOGY (05/08/2016 8: 29 AM)Only the most recent of 2 results within the time period is included. Component Value Range PATHOLOGY REPORT [facility] [email or web address] Luana Lawler MD, PhD, Director of Anatomic Pathology Department of Pathology and Laboratory Medicine [address] [place] [id number] Surgical Pathology Office: [phone] SURGICAL PATHOLOGY REPORT NAME: LIZ HENDRICKS SURG PATH #: [id number] MR #: [id number] SPECIMEN CLASS: SR BILLING #: [id number] ALT ID #: LOCATION: DERM DATE OF PROCEDURE: 05/08/2016 AGE: 75 SEX: M DATE RECEIVED: 05/09/2016 : 1940 TIME RECEIVED: 08:29 PHYSICIAN: RAH FRANKS DATE OF REPORT: 05/10/2016 COPY TO: LUIS FELIPE ANTONY MD DATE OF PRINTIN05/10/2016 ################################################## ###################### Final Diagnosis: A. Left superior scalp: -- Hypertrophic actinic keratosis Attestation: By this signature, I attest that I have personally formulated the final interpretation expressed in this report and that the above diagnosis is based upon my examination of the slides and/or other material indicated in this report. +++Electronically Signed Out By+++ gf/05/10/2016 Interpreted by: Alexis Dowling MD, Attending Physician 05/10/2016 ################################################## ###################### Material Received: A: left superior scalp History: A. HAK versus SCC Gross Description: A. Labeled "left superior scalp" is a 1.1 x 1.1 x 0.2 cm shave, trisected, all in A1. (jdn) jdn2/05/09/2016 POC URINE DIPSTICK AUTO READ (05/04/2016) Component Value Range Urine Glucose POC 100 Urine Bilirubin POC neg Urine Ketone POC neg Urine Specific [place] 1.020 POC Urine Blood POC 50 Urine PH POC 5 Urine Protein POC 500 Urine Urobilinogen POC norm Urine Nitrite POC neg Urine Leukocytes POC neg Specimen Urine URINALYSIS MICROSCOPIC REFLEX TO CULTURE (04/11/2016 8:45 AM) Component Value Range RBCs,UA NONE /HPF WBCs,UA RARE /HPF Bacteria,UA NEGATIVE /HPF Squamous Epithelial Cells RARE /HPF Specimen Urine Narrative Outside Lab Verified by Wilma Mckeon on 04/11/2016. URINALYSIS DIPSTICK REFLEX TO CULTURE (04/11/2016 8:45 AM) Component Value Range Color,UA yellow Turbidity,UA clear pH,UA 5 5-9 Specific [place]-Urine 1.020 1.016-1.022 Protein,UA 4+ (A) NEGATIVE Glucose,UA 2+ (A) NEGATIVE Blood,UA 3+ (A) negative Ketones,UA NEGATIVE NEGATIVE Nitrite,UA negative negative Bilirubin,UA negative negative Urobilinogen,UA normal normal Leukocytes,UA NEGATIVE NEGATIVE Specimen Urine Narrative Outside Lab Verified by Wilma Mckeon on 04/11/2016. 25-OH VITAMIN D (D2 + D3) (04/11/2016 8:38 AM) Component Value Range Vitamin D(25-OH)Total 30 30-100 ng/mL Specimen Blood Narrative Outside Lab Verified by Pricilla Merino on 04/12/2016. LIPID PROFILE (04/11/2016 8:38 AM) Component Value Range Triglycerides 163 (H) <150 MG/DL Cholesterol 133 <200 MG/DL HDL 37 (L) 40-60 MG/DL LDL 62 1-129 MG/DL VLDL 33 5-40 MG/DL Specimen Blood Narrative Outside Lab Verified by Pricilla Merino on 04/12/2016. PROCEDURES-SCAN (04/10/2016 1:45 PM) Narrative Ordered by an unspecified provider. POC GLUCOSE (04/07/2016 1:41 PM) Component Value Range Glucose, POC 105 (H) 70-100 MG/DL MOHS PROCEDURE (04/07/2016 1:13 PM)
--- NOTE | 2016-06-09 15:39 | Diagnostic Imaging Report ---
INDICATION: End-stage renal disease requiring dialysis. TECHNIQUE: Two view chest at 1:58 PM CORRELATION STUDY: 02/05/2015 FINDINGS: The heart size, mediastinal configuration and pulmonary vasculature are within normal limits. The lung thomason are hyperinflated. The frontal projection has very slight increased density of the right lung base, not appreciable on the lateral projection, may be overlapping summation shadow. No definitive infiltrate. Visualized osseous structures are unremarkable. IMPRESSION: 1. Hyperinflated lung thomason without evidence for acute abnormality of the chest. Dictated by: Dictated on workstation # [id number]
[2016-06-09 21:15] LABS: HEPATITIS B SURFACE AB INDEX <3.10 mIU/mL (>=10.00)
[2016-06-09 21:41] LABS: HEPATITIS B CORE TOTAL INDEX <0.07 Index (<=0.50)
[2016-06-12 08:19] LABS: HEPATITIS B CORE TOTAL INTERP Non-Reactive
[2016-06-12 08:35] LABS: HEPATITIS B SURFACE AB INTERP Non-Immune (Immune)
== END ==
LOC: RAD 13:13
PROVIDERS: ATTEND Internal Medicine Nephrology
DX: N18.6 End stage renal disease (principal)
CPT/HCPCS: 36415; 71020; 86704; 86706; 86803; 87340

== ENCOUNTER → 2016-06-15 | Outpatient (CLI) | payer MEDICARE ==
--- OUTSIDE RECORDS SUMMARY | 2016-06-15 10:11 | XMS REPORT | Continuity of Care Document ---
Author Author [facility] Organization [facility] Address Unknown Phone Unavailable Care Team Providers Care Supervisor Extrusion Name Role Phone Faizan Lin PCP [phone] Source Comments Some departments are not documenting in the electronic medical record. If you do not see the information that you expected, contact Release of Information in the Health Information Management department at [phone] for further assistance in locating additional records.[facility] Active Allergies and Adverse Reactions Allergen [...] (PROTONIX) 40 mg tablet DAILY 17 PEG 1699-Algyvgbquoxc-Oug Take per prep 2 Each 0 06/02/19 Active C (MOVIPREP) instructions 17 100-7.5-2.691 gram pwpk PEG 3350-Electrolytes Mix as directed on 4000 mL 0 06/05/19 Active (GOLYTELY) oral solution package. Drink 240ml 17 (8oz) every 10 minutes until gone. Refrigerate once mixed. everolimus (ZORTRESS) 0.5 Take 4 Tabs by [...] with medication access, 24hr home care or alf placement. -Follow up: Transplant Surgery in 2 [...] 08/02/2012 Overview: 01/06/13: Postop insulin gtt per [facility] protocol. 01/07/13: Consult endocrine for DM management. [...] Encounters Date Type Specialty Providers Description 07/14/2016 [facility] Regan Brock MD Colon cancer screening [...] by transplant (HCC) 05/08/2016 Office Visit Dermatology Teat Luis Felipe Méndez, Immunosuppressed status ([facility]) (Primary Dx); Actinic keratosis; Neoplasm of uncertain behavior of skin 05/08/2016 [facility] Rah Franks MD Neoplasm of uncertain Encounter behavior of skin 05/04/2016 Office Visit Nephrology Lida Yang MBBS CKD (chronic kidney disease), stage 5 (HCC) (Primary Dx); Proteinuria; Essential hypertension; Edema, unspecified type 05/02/2016 Orders Only Transplant Surgery MerinoKiaraPricilla Liver replaced by transplant (HCC) 05/02/2016 Refill Transplant Surgery Regan Brock MD 05/02/2016 Refill Gastroenterology Bridget Yip MD 04/26/2016 Office Visit Plastic Surgery Norris Mane MD Skin cancer (Primary Dx); Mohs defect of right scalp 04/26/2016 Orders Only Transplant Surgery Merino Pricilla Liver replaced by transplant (HCC) 04/25/2016 Orders Only Transplant Surgery Wilma Mckeon Liver replaced by transplant (HCC) 04/17/2016 Orders Only Transplant Surgery Minerva Pizano Liver replaced by transplant (HCC) 04/17/2016 Orders Only Transplant Surgery Merino Pricilla Liver replaced by transplant (HCC) 04/13/2016 Orders Only Transplant Surgery Luis Felipe Fry BSN Liver replaced by transplant (HCC) (Primary Dx) 04/12/2016 Office Visit Plastic Surgery Norris Mane MD Mohs defect of right scalp (Primary Dx) 04/12/2016 Orders Only Transplant Surgery MerinoKiaraPricilla Liver replaced by transplant (HCC); Disorder of bone density and structure, unspecified 04/11/2016 Orders Only Transplant Surgery MikeWilma stoddard Liver replaced by transplant (HCC) 04/10/2016 Refill Transplant Surgery Regan Brock MD 04/07/2016 Procedure visit Dermatology Mae, Basal cell carcinoma of MD Jasmin scalp (Primary Dx) 04/07/2016 Surgery Norris Mane MD MOHS CLOSURE RIGHT LATERAL SCALP WITH LOCAL TISSUE REARRANGEMENT 15CM 04/06/2016 Anesthesia Altenhofen, Gregoria, Event SRNA 04/04/2016 Telephone Dermatology Fabiana Rodriguez MD Provider Discussion About Patient 04/03/2016 Orders Only Transplant Surgery Merino Pricilla Liver replaced by transplant (HCC) 04/03/2016 Refill Nephrology Lida Yang MBBS 04/03/2016 Telephone Transplant Surgery Luis Felipe Fry BSN Labs Only 04/03/2016 Orders Only Transplant Surgery Luis Felipe Fry BSN Liver replaced by transplant (HCC) (Primary Dx); Disorder of bone density and structure, unspecified 03/30/2016 Orders Only Transplant Surgery Merino, Pricilla Liver replaced by transplant (HCC) 03/29/2016 Orders Only Transplant Surgery Minerva Pizano Liver replaced by transplant (HCC) 03/28/2016 Documentation Transplant Surgery Rebeca Rosario 03/27/2016 Refill Gastroenterology Bridget Yip MD 03/24/2016 [...] Taken Blood Pressure 145/65 05/15/2016 10:57 AM NUCLEAR PLANT CONSTRUCTION WORKER Pulse 83 05/15/2016 10:57 AM NUCLEAR PLANT CONSTRUCTION WORKER Temperature 36.7 C (98 F) 05/15/2016 10:57 AM NUCLEAR PLANT CONSTRUCTION WORKER Respiratory Rate 16 05/15/2016 10:57 AM NUCLEAR PLANT CONSTRUCTION WORKER Height 1.88 m (6' 2") 05/30/2016 2:58 PM NUCLEAR PLANT CONSTRUCTION WORKER Weight 115.667 kg (255 lb) 05/30/2016 2:58 PM NUCLEAR PLANT CONSTRUCTION WORKER Body Mass Index 32.73 05/30/2016 2:58 PM NUCLEAR PLANT CONSTRUCTION WORKER Oxygen Saturation 95% 05/15/2016 10:57 AM NUCLEAR PLANT CONSTRUCTION WORKER Plan of Care Date Type Specialty Providers Description 06/27/2016 Appointment Dermatology Rah Franks MD [address] [place] [address] [phone] (Fax) 07/14/2016 Surgery Regan Brock MD COLONOSCOPY [address] [place] [address] [phone] (Fax) 05/14/2017 Appointment Transplant Surgery Regan Brock MD [address] [place] [address] [phone] (Fax) Health Maintenance Due Date Last Done [...] PROCEDURES-SCAN 04/10/2016 Results for this 1:45 PM NUCLEAR PLANT CONSTRUCTION WORKER procedure are in the results section. MOHS CLOSURE RIGHT 04/07/2016 BCC (basal cell carcinoma LATERAL SCALP WITH LOCAL 1:35 PM NUCLEAR PLANT CONSTRUCTION WORKER of skin) TISSUE REARRANGEMENT 15CM Special Needs 04/04 PER CHANGE FORM REC'D ON 03/20, PROVIDER CHANGED FROM DR. BAXTER TO DR. MANE BY ON 03/20 @ 143 - . KIERSTEN FERNÁNDEZ ([id number]) Results from Last 3 Months SKIN LESION DESTRUCTION (05/30/2016 3:18 PM)EVEROLIMUS BLOOD (05/09/2016 8:15 AM)Only the most recent of 4 results within the time period is included. Component Value Range Everolimus 7.5 ng/mL Narrative Outside Lab Verified by Minerva Lima on 05/17/2016. GGTP (05/09/2016 8:15 AM)Only the most recent of 4 results within the time period is included. Component Value Range GGTP 10 0-65 U/L Specimen Blood Narrative Outside Lab Verified by Chacorta Hdz on 05/12/2016. PHOSPHORUS (05/09/2016 8:15 AM)Only the most recent of 4 results within the time period is included. Component Value Range Phosphorus 5.6 (H) 2.3-4.7 H Specimen Blood Narrative Outside Lab Verified by Pricilla Merino on 05/10/2016. MAGNESIUM (05/09/2016 8:15 AM)Only the most recent of 4 results within the time period is included. Component Value Range Magnesium 2.2 1.8-2.4 MG/DL Specimen Blood Narrative Outside Lab Verified by Pricilla Merino on 05/10/2016. COMPREHENSIVE METABOLIC PANEL (05/09/2016 8:15 AM)Only the most recent of 4 results within the time period is included. [...] (05/09/2016 8:15 AM)Only the most recent of 4 results within the time period is included. [...] Lab Verified by Pricilla Merino on 05/10/2016. [id number] (05/08/2016 3:33 PM)SURGICAL PATHOLOGY (05/08/2016 8: 29 AM)Only the most recent of 2 results within the time period is included. Component Value Range PATHOLOGY REPORT [facility] [email or web address] Luana Lawler MD, PhD, Director of Anatomic Pathology Department of Pathology and Laboratory Medicine [address] [place] [id number] Surgical Pathology Office: [phone] SURGICAL PATHOLOGY REPORT NAME: LIZ HENDRICKS SURG PATH #: [id number] MR #: [id number] SPECIMEN CLASS: SR BILLING #: [id number] ALT ID #: LOCATION: DERM DATE OF PROCEDURE: 05/08/2016 AGE: 75 SEX: M DATE RECEIVED: 05/09/2016 : 1940 TIME RECEIVED: 08:29 PHYSICIAN: RAH FRANKS DATE OF REPORT: 05/10/2016 COPY TO: LUIS FELIPE MÉNDEZ MD DATE OF PRINTIN05/10/2016 ################################################## ###################### Final [...] neg Urine Ketone POC neg Urine Specific [place] 1.020 POC Urine Blood POC 50 Urine [...] yellow Turbidity,UA clear pH,UA 5 5-9 Specific [place]-Urine 1.020 1.016-1.022 Protein,UA 4+ (A) NEGATIVE Glucose,UA [...]
--- NOTE | 2016-06-15 11:02 | Diagnostic Imaging Report ---
Examination: DEXA scan. Indication: osteopenia Technique: Bone mineral density estimated based on dual energy radiography over the lumbar spine and femoral necks, was performed. Findings: The lumbar spine T-score is 2.1 this is 2.8% decreased density measurement compared to prior study of 2011. The T score in the lumbar spine is probably exaggerated by degenerative sclerosis. T score over the left femoral neck is -0.8 and on the right side is -1.1. This is 19% decreased density measurement compared to 07/31/2011. IMPRESSION: Borderline osteopenia.. Dictated by: Dictated on workstation # [id number]
== END ==
LOC: RAD 10:08
PROVIDERS: ATTEND Internal Medicine
DX: M85.88 Other specified disorders of bone density and structure, other site (principal)
CPT/HCPCS: 77080

== ENCOUNTER 2016-08-14 07:03 | Emergency (ER) | payer MEDICARE ==
[~2016-08-14] VITALS: Ht 188 cm; Wt 117.0 kg
--- OUTSIDE RECORDS SUMMARY | 2016-08-14 07:09 | XMS REPORT | Continuity of Care Document ---
Author Author [facility] Organization [facility] Address Unknown Phone Unavailable Care Team Providers Care Equine Breeder Name Role Phone Faizan Lin PCP [phone] Source Comments Some departments are not documenting in the electronic medical record. If you do not see the information that you expected, contact Release of Information in the Health Information Management department at [phone] for further assistance in locating additional records.[facility] [...] Tab 0 06/03/19 Active tablet daily. 16 aspirin 81 mg chewable [...] Indications: 16 PREVENTION OF LIVER TRANSPLANT REJECTION PEG 9436-Bsknimqcjhlh-Jkj Take per prep 2 Each 0 06/02/19 Active C (MOVIPREP) instructions 17 100-7.5-2.691 gram pwpk PEG 3350-Electrolytes Mix as directed on 4000 mL 0 06/05/19 Active (GOLYTELY) oral solution package. Drink 240ml 17 (8oz) every 10 minutes until gone. Refrigerate once mixed. atorvastatin (LIPITOR) 10 1 Tab daily. 90 Tab 3 06/27/19 Active mg tablet 17 everolimus (ZORTRESS) 0.5 Take 2 Tabs by mouth 120 Tab 11 07/27/19 Active mg tablet twice daily. 17 traMADol (ULTRAM) 50 mg Take 1 Tab by mouth every 6 Tab 0 07/07/19 Active tablet 8 hours as needed for 17 Pain. tretinoin (RETIN-A) 0.1 % Apply topically to 45 g 3 07/24/19 Active topical cream affected area every 7 17 days. Apply weekly to the face and scalp over cerave at night pantoprazole DR TAKE ONE TABLET BY MOUTH 30 Tab 0 08/01/19 Active (PROTONIX) 40 mg tablet DAILY [address] TAKE ONE TABLET BY MOUTH 30 Tab 0 06/28/19 08/01/19 Discontin (PROTONIX) 40 mg tablet DAILY 17 17 ued tretinoin (RETIN-A) 0.1 % Apply topically to 45 g 3 07/24/19 Discontin topical cream affected area every 7 17 17 ued days. Apply weekly to the face and scalp over cerave at night Active Problems Problem Noted Date Mohs defect [...] POD#4 -Immunosuppression (Start date/goal/therapeutic/rejection/delirium): FK 01/10/13. Goal -. -CMV: D+/R-; Valcyte -PJP: Bactrim DS MWF [...] with medication access, 24hr home care or care home placement. -Follow up: Transplant Surgery in 2 [...] 08/02/2012 Overview: 01/06/13: Postop insulin gtt per [place] protocol. 01/07/13: Consult endocrine for DM management. [...] Recent Encounters Date Type Specialty Providers Description 07/31/2016 Refill Gastroenterology Bridget Yip MD 07/24/2016 Office Visit Dermatology Lorenzo Higgins MD Actinic keratosis (Primary Dx); History of basal cell cancer; History of squamous cell carcinoma; Immunosuppressed status (HCC) 07/17/2016 Refill Dermatology Fabiana Rodriguez MD 07/14/2016 [facility] Regan Brock MD Colon cancer screening Encounter 07/14/2016 Surgery Regan Brock MD Canceled COLONOSCOPY 07/07/2016 Procedure visit Dermatology Mae, Squamous cell carcinoma MD Jasmin of skin of left congregation (Primary Dx) 07/03/2016 Telephone Dermatology Fabiana Rodriguez MD Provider Discussion About Patient 06/30/2016 Refill Transplant Surgery Regan Brock MD 06/30/2016 Orders Only Transplant Surgery Rebeca Rosario Disorder of bone density and structure, unspecified ; Osteoporosis screening 06/28/2016 Refill [facility]enterology [facility] [facility] of uncertain Encounter behavior, unspecified 06/27/2016 Office Visit Dermatology Ga Franklin MD Actinic keratosis (Primary Dx); Neoplasm of uncertain behavior; History of squamous cell carcinoma; History of basal cell cancer 06/26/2016 Refill Transplant Surgery Regan Brock MD 06/09/2016 Telephone Transplant Surgery Regan Brock MD [...] Yip MD 05/26/2016 Orders Only Transplant Surgery Faith Fry BSN Osteoporosis screening (Primary Dx); Disorder of bone density and structure, unspecified 05/22/2016 Refill Transplant Surgery Regan Brock MD Liver replaced by transplant (HCC) (Primary Dx) 05/18/2016 Orders Only Transplant Surgery Minerva Pizano Liver replaced by transplant (HCC) 05/17/2016 Orders Only Transplant Surgery Faith Fry BSN Liver replaced by transplant (HCC) (Primary Dx) Immunizations Name Dates Previously Given Next Due [...] Taken Blood Pressure 145/65 05/15/2016 10:57 AM SALES ACCOUNT COORDINATOR Pulse 83 05/15/2016 10:57 AM SALES ACCOUNT COORDINATOR Temperature 36.7 C (98 F) 05/15/2016 10:57 AM SALES ACCOUNT COORDINATOR Respiratory Rate 16 05/15/2016 10:57 AM SALES ACCOUNT COORDINATOR Height 1.88 m (6' 2") 07/24/2016 1:57 PM SALES ACCOUNT COORDINATOR Weight 111.131 kg (245 lb) 07/24/2016 1:57 PM SALES ACCOUNT COORDINATOR Body Mass Index 31.44 07/24/2016 1:57 PM SALES ACCOUNT COORDINATOR Oxygen Saturation 95% 05/15/2016 10:57 AM SALES ACCOUNT COORDINATOR Plan of Care Date Type Specialty Providers Description 08/25/2016 Appointment Dermatology Rah Franks MD [address] [place] [address] [phone] (Fax) 05/14/2017 Appointment Transplant Surgery Regan Brock MD [address] [facility] [address] [place] [address] [phone] (Fax) Health Maintenance Due Date Last Done Comments Physical (Comprehensive) 1947 Exam Pertussis Vaccine 1953 Tetanus Vaccine 09/29/1959 Dilated Eye Exam 1960 Foot Exam 1960 Shingles Vaccine 2002 Microalbumin 07/31/2015 07/30/2014, 10/31/2012, 08/29/2012 Additional history exists Prevnar/Pneumovax (#2) 02/20/2016 02/19/2015 Hba1c 03/25/2016 09/24/2015, 07/21/2015, 05/18/2014 Additional history exists Influenza Vaccine 01/26/2017 02/19/2015, 02/28/2013 Colorectal Cancer 11/04/2020 11/04/2010, 08/05/2010, 07/08/2010 Screening Procedures from Last 3 Months Procedure Name Priority Date/Time Associated Diagnosis Comments DE REPAIR COMPLEX Routine 07/07/2016 Squamous cell carcinoma Results for this F/C/C/M/N/AX/G/H/F 5:18 PM SALES ACCOUNT COORDINATOR of skin of left congregation procedure are in the 2.6-7.5 CM results section. DE MOHS MICROGRAPHIC Routine 07/07/2016 Squamous cell carcinoma Results for this H/N/H/F/G 1ST STAGE 5 5:18 PM SALES ACCOUNT COORDINATOR of skin of left congregation procedure are in the BLOCKS results section. DE MOHS MICROGRAPHIC Routine 07/07/2016 Squamous cell carcinoma Results for this H/N/H/F/G EACH ADDL STAGE 5:18 PM SALES ACCOUNT COORDINATOR of skin of left congregation procedure are in the results section. Results from Last 3 Months SKIN LESION DESTRUCTION (07/24/2016 2:30 PM)MOHS PROCEDURE (07/07/2016 5:18 PM ) Narrative Fabiana Rodriguez MD 07/07/20165:18 PM Mohs Micrographic Surgery Operative Report Attending Physician Surgeon: Fabiana Rodriguez M.D. Resident Physician Surgeon: Jasmin Wall M.D. Diagnosis: SCC Location: Left inferior congregation Pre-Operative Size: 1.2x0.9cm Prep Cleanser: Betadine Anesthesia: 1% Buffered Lidocaine with Epinephrine 1:100,000 Number of Stages to Achieve Negative Margins: 2 Accession Number: [id number] Indication(s) for Mohs: Location, size, need for tissue sparing; pt immunosuppression Patient Preparation: The biopsy site was marked in accordance with the pathology report description, clinical signs of tumor and/or biopsy scar, and with he patient's and/or family member's identification of the site using a handheld mirror when needed. The surgical site was cleansed, then anesthetized and draped in the usual sterile fashion. This was repeated for each stage of the procedure as well as the reconstruction. Mohs Operative Procedure: The lesion was debulked and margins were delineated with a dermal curette. A scalpel was used to excise the tumor with a 1-2 mm margin. Hemostasis was achieved with minimal electrocoagulation and suture ligatures as needed and a pressure dressing was applied. The resected tissue was oriented relative to the surgical defect in the patient and a map was created to specifically describe the anatomic orientation of the tumor. The resected tissue was divided into approximately sized specimens and the peripheral and deep margins were marked with dye corresponding to the map. The inked specimens were processed as horizontal frozen sections that allowed examination of the entire peripheral and deep margins. The frozen sections were stained with hematoxylin and eosin ans systematically examined under the microscope by the surgeon. If tumor cells were found at any margin, a notation in red was made on the corresponding segment of the map and additional tissue at the involved margin, as indicated by the map, was obtained. These steps were repeated until a tumor free margin was obtained. Once no further tumor cells were identified, the tumor eradication was concidered to be complete after a total of 2 stage(s) of Mohs surgery in which multiple microscope sections of a total of 3 tissue specimens were examined. Complex Linear Closure Operative Report Diagnosis: A 1.5x1.7cm defect secondary to Mohs Micrographic Surgery of a SCC. Attending Physician Surgeon: Fabiana Rodriguez MD Resident Physician Surgeon: Jasmin Wall MD Location: Left inferior congregation Anesthesia: 1% Buffered Lidocaine with Epinephrine 1:100,000 Prep Cleanser: Betadine Buried Vertical Mattress Sutures: 4-0 vicryl Superficial/Epidermal Sutures: 4-0 ethilon Final Length: 4.0cm Patient Preparation: The surgical site was cleansed, then anesthetized and draped in the usual sterile fashion. Complex Linear Closure Procedure: The size and location of the tumor defect, surrounding anatomy, function, and skin laxity were evaluated. Reconstruction options and risks and benefits were discussed with the patient. A complex linear closure was chosen to minimize scarring, restore normal contouring, and restore function. The surgical defect was prepped, then anesthetized and draped in the usual sterile fashion. The wound was widely undermined to minimize distortion of adjacent structures and maximize function. Hemostasis was controlled with minimal electrocautery and sutures ligatures as needed. Subcutaneous buried vertical mattress sutures were placed. Tissue protrusions were removed with scalpel. Epidermal approximation was performed. The patient tolerated the procedure well and there were no immediate complications. Post Operative Care: Vaseline ointment and a pressure dressing were applied to the wound and the patient was instructed to leave it in place for 48 hours. Detailed post-operative wound care instructions were reviewed, and written instructions were provided. The patient and/or family was encouraged to call with any questions or concerns. SURGICAL PATHOLOGY (06/27/2016 3:03 PM) Component Value Range PATHOLOGY REPORT [facility] [email or web address] Luana Lawler MD, PhD, Director of Anatomic Pathology Department of Pathology and Laboratory Medicine [address] [place] [id number] Surgical Pathology Office: [phone] SURGICAL PATHOLOGY REPORT NAME: LIZ HENDRICKS SURG PATH #: [id number] MR #: [id number] SPECIMEN CLASS: SR BILLING #: [id number] ALT ID #: LOCATION: DERM DATE OF PROCEDURE: 06/27/2016 AGE: 75 SEX: M DATE RECEIVED: 06/27/2016 : 1940 TIME RECEIVED: 15:03 PHYSICIAN: RAH FRANKS DATE OF REPORT: 06/29/2016 COPY TO: GA FRANKLIN MD DATE OF PRINTIN06/29/2016 ################################################## ###################### Final Diagnosis: A. 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 +++Electronically Signed Out By+++ gf/06/29/2016 Interpreted by: Alexis Dowling MD, Attending Physician 06/29/2016 ################################################## ###################### Material Received: A: left inferior congregation History: A. SCCIS >SCC >AK. Gross Description: A. Labeled "left inferior congregation" is a 1.5 x 1.0 x 0.1 cm shave, trisected, all in A1. (jdn) jdn2/06/27/2016 SKIN BIOPSY/EXCISION OF SKIN LESION (06/27/2016 2:04 PM)SKIN LESION DESTRUCTION (06/27/2016 2:03 PM)BONE DENSITY SPINE/HIP (06/15/2016 11:37 AM) SKIN LESION DESTRUCTION (05/30/2016 3:18 PM)
[2016-08-14] MEDS ORDERED: RT-ALBUTEROL/IPRATROPIUM 3 ML (DUONEB) VIAL ONE (07:13)
[2016-08-14] MEDS ORDERED: RT-ALBUTEROL/IPRATROPIUM 3 ML (DUONEB) VIAL INH ONE ×2 (07:15→07:45)
[2016-08-14 07:26] LABS: BASOPHILS % (AUTO) 0 % (0-10); EOSINOPHILS % (AUTO) 0 % (0-10); LYMPHOCYTES # (AUTO) 0.9 X 10^3 (1.0-4.0); LYMPHOCYTES % (AUTO) 12 % (12-44); MEAN CORPUSCULAR HEMOGLOBIN 27 PG (25-34); MEAN CORPUSCULAR HGB CONC 33 G/DL (32-36); MEAN CORPUSCULAR VOLUME 81 FL (80-99); MEAN PLATELET VOLUME 9.2 FL (7.4-10.4); MONOCYTES # (AUTO) 0.4 X 10^3 (0.0-1.0); MONOCYTES % (AUTO) 6 % (0-12); NEUTROPHILS # (AUTO) 6.3 X 10^3 (1.8-7.8); NEUTROPHILS % (AUTO) 82 % (42-75); PLATELET COUNT 224 10^3/uL (130-400); RED CELL DISTRIBUTION WIDTH 14.9 % (10.0-14.5); WHITE BLOOD COUNT 7.7 10^3/uL (4.3-11.0)
[2016-08-14 07:35] LABS: ABG BASE EXCESS 1.7 MMOL/L (-2.5-2.5); ABG HCO3 27 MMOL/L (23-27); ABG OXYGEN SATURATION 96 % (94-100); ABG PCO2 59 MMHG (35-45); ABG PO2 97 MMHG (79-93); ABG TCO2 28.3 MMOL/L (21.0-31.0)
[2016-08-14 07:38] LABS: ALLENS TEST YES-POS
[2016-08-14 07:45] LABS: ALANINE AMINOTRANSFERASE 17 U/L (0-55); ALBUMIN 3.5 G/DL (3.2-4.5); ANION GAP 16 MMOL/L (5-14); ASPARTATE AMINO TRANSFERASE 20 U/L (5-34); BILIRUBIN,TOTAL 0.4 MG/DL (0.1-1.0); BLOOD UREA NITROGEN 37 MG/DL (7-18); BUN/CREATININE RATIO 5; CALCIUM 8.8 MG/DL (8.5-10.1); CARBON DIOXIDE 24 MMOL/L (21-32); CHLORIDE 97 MMOL/L (98-107); CREATININE SERUM 8.17 MG/DL (0.60-1.30); GFR ESTIMATED 6; GLUCOSE 319 MG/DL (70-105); MAGNESIUM 1.7 MG/DL (1.8-2.4); SODIUM 137 MMOL/L (135-145); TOTAL PROTEIN 6.6 G/DL (6.4-8.2)
[2016-08-14 07:48] LABS: INR 1.1 (0.8-1.4); PROTHROMBIN TIME PATIENT 13.8 SEC (12.2-14.7)
[2016-08-14 07:51] LABS: TROPONIN I < 0.30 NG/ML (<0.30)
[2016-08-14 07:52] VITALS: BP 181/119
--- NOTE | 2016-08-14 07:57 | Diagnostic Imaging Report ---
INDICATION: Fever and dyspnea. DISCUSSION: Single portable upright view of the chest was obtained, comparison 06/09/2016. No adverse interval change. Stable normal heart size. No focal consolidation, pleural fluid, or pneumothorax. No osseous abnormality. IMPRESSION: 1. Negative portable chest. Dictated by: Dictated on workstation # [id number]
[2016-08-14 08:01] VITALS: BP 141/70
[2016-08-14] MEDS ORDERED: cefTRIAXone INJECTION 1,000 MG in NS (IVPB) 50 ML IV ONE (08:15)
--- NOTE | 2016-08-14 08:32 | ED General ---
General Chief Complaint: PARTIAL PLATE-LOWER, CONTACTS Stated Complaint: FLU LIKE SYMPTOMS Nursing Triage Note: TO ED PER EMS FROM HOME REPORTS THAT SUN NIGHT STARTED WITH COUGH CONGESTION. ON ARRIVA EMS REPORTS THAT BS WAS 64 1 AMP OF D50 GIVEN AND SA02 WAS 55% PLACED ON NON REBREATHER BY EMS. ANSWERS QUESTION ON ADMIT BUT APPEARS SLEEPY SLOW TO RESPOND. Nursing Sepsis Screen: Possible Severe Sepsis Risk Source of Information: Patient, EMS History of Present Illness Time Seen by Provider: 07:05 Initial Comments PT ARRIVES VIA EMS FROM HOME PT BEGAN HAVING A PRODUCTIVE COUGH ON Sunday08/11/16 PT HAS HAD SUBJECTIVE FEVER C/O SHORTNESS OF BREATH C/O CHEST PAIN ON BREATHING C/O GENERALIZED PAIN/BODY ACHES NO HEADACHE C/O NAUSEA/NO VOMITING C/O GENERALIZED WEAKNESS PT HAS HAD LIVER TRANSPLANT PT IS ON DIALYSIS --SUNDAY/SUNDAY/SUNDAY--IS DUE THIS AM TO HAVE DIALYSIS EMS REPORTS THAT BLOOD GLUCOSE WAS IN 60'S SO GAVE 1 AMP D50 PRIOR TO ARRIVAL THEY ALSO REPORT O2 SAT 55% ON ROOM AIR ON ARRIVAL--UP TO 90'S ON 15L/NRB--PT DOES NOT WEAR HOME O2 FAMILY WANTED PT TO GO TO [place], BUT EMS BROUGHT HERE INSTEAD PCP: DR. PIKE NEPHROLOGY: DR. Renae" /[facility] Allergies and Home Medications Allergies Coded Allergies: No Known Drug Allergies (Unverified , 11/03/11) Home Medications 1 EA TABLET 1 EA PO DAILY@0700 Prescribed by: ROBIN MARES on 02/05/15912 Acetaminophen 325 Mg Tablet #1 650 MG PO Q6H PRN PRN Pain or Fever Prescribed by: ROBIN MARES on 02/05/15912 Amlodipine Besylate 10 Mg Tablet 10 MG PO DAILY (Reported) LAST FILLED 11-09-14 #30 Aspirin 81 Mg Tablet. 81 MG PO DAILY (Reported) Atorvastatin Calcium 10 Mg Tablet 10 MG PO DAILY (Reported) Calcium Carbonate/Vitamin D3 1 Each Tab.chew 1 TAB PO DAILY (Reported) Carvedilol 6.25 Mg Tablet 6.25 MG PO BID (Reported) Doxazosin Mesylate 2 Mg Tablet 2 MG PO DAILY (Reported) Everolimus 0.5 Mg Tablet 0.5 MG PO BID (Reported) Ketoconazole 120 Ml Shampoo TOP THREE TIMES WEEKLY (Reported) Loratadine 10 Mg Tablet 10 MG PO DAILY (Reported) Pantoprazole Sod 40 Mg Tab 40 MG PO DAILY (Reported) Sennosides/Docusate Sodium 1 Each Tablet #1 2 EA PO BID Prescribed by: ROBIN MARES on 02/05/15 0913 Tamsulosin HCl 0.4 Mg Cap.er.24h 0.4 MG PO DAILY (Reported) Constitutional: see HPI fever malaise weakness EENTM: no symptoms reported Respiratory: see HPI cough short of breath Cardiovascular: see HPI chest pain (HURTS TO BREATHE)No palpitations, No syncope Gastrointestinal: no symptoms reported Genitourinary: see HPI (ON DIALYSIS) Musculoskeletal: see HPI (BODY ACHES) Skin: no symptoms reported Psychiatric/Neurological: No Symptoms ReportedDenies Headache, Denies Numbness , Denies Paresthesia Hematologic/Lymphatic: No Symptoms Reported Immunological/Allergic: see HPI transplant Past Yhypxrv-Puntik-Dknybe Hx Patient Social History Alcohol Use: Denies Use Recreational Drug Use: No Smoking Status: Former Smoker Former Smoker/When Quit: Jan 26, 1995 Recent Foreign Travel: No Contact w/Someone Who Travel: No Recent Infectious Disease Expo: No Recent Hopitalizations: No Immunizations Up To Date Tetanus Booster (TDap): More than 5yrs Date of Pneumonia Vaccine: Feb 26, 2008 Date of Influenza Vaccine: Feb 26, 2012 Seasonal Allergies Seasonal Allergies: Yes Surgeries HX Surgeries: Yes (PARACENTESIS MULTIPLE TIMES--WEEKLY, 8 LITERS. LIVER TRANSPLANT JAN 06, RIGHT ARM AV FISTULA/DIALYSIS GRAFT ; RIGHT TOTAL KNEE REPLACEMENT; HERNIA REPAIR; PLANTAR FASCIA RELEASE) Surgeries: Dialysis, Joint Replacement, Liver Transplant, Orthopedic Respiratory Hx Respiratory Disorders: Yes (CPAP) Respiratory Disorders: Sleep Apnea, COPD, Emphysema Cardiovascular Hx Cardiac Disorders: Yes (STRESS TEST PRIOR TO LIVER TRANSPLANT) Cardiac Disorders: Hypertension Neurological Hx Neurological Disorders: Yes Neurological Disorders: Neuropathy Reproductive System Hx Reproductive Disorders: No Sexually Transmitted Disease: No HIV/AIDS: No Genitourinary Hx Genitourinary Disorders: Yes Genitourinary Disorders: Renal Failure, Dialysis Gastrointestinal Hx Gastrointestinal Disorders: Yes (S/P LIVER TRANSPLANT) Gastrointestinal Disorders: Abdominal Hernia, Gastroesophageal Reflux, Liver Disease/Jaundice, Esophageal Varices Musculoskeletal Hx Musculoskeletal Disorders: Yes Musculoskeletal Disorders: Arthritis, Chronic Back Pain Endocrine Hx Endocrine Disorders: Yes (WAS AFTER TRANSPLANT) Endocrine Disorders: Diabetes, Non-Insulin dep HEENT HX ENT Disorders: Yes (PARTIAL PLATE-LOWER, CONTACTS ) Loss of Vision: Denies Hearing Impairment: Hard of Hearing Cancer Hx Cancer: Yes (skin cancers removed on head) Cancer: Skin Psychosocial Hx Psychiatric Problems: No Integumentary HX Skin/Integumentary Disorder: No Blood Transfusions Hx Blood Disorders: No Adverse Reaction to a Blood Tr: No Family Medical History Significant Family History: No Pertinent Family Hx Family Medial History: Arthritis 19 MOTHER BREAST CANCER 19 MOTHER Cardiovascular disease 19 FATHER EMPHYSEMA 19 FATHER FH: breast cancer FH: emphysema Physical Exam Vital Signs Vital Sign - Last 12Hours 08/14/16 08/14/16 08/14/16 07:03 07:20 07:34 Temp 104.0 Pulse 94 Resp 22 B/P 188/119 Pulse Ox 97 O2 Delivery Nonrebreather O2 Flow Rate 10 Capillary Refill : Less Than 3 Seconds General Appearance: WD/WN Other (MILDLY LETHARGIC. SLIGHTLY DYSPNEIC. 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 Norm as Tested Skin: Normal Color Warm/Dry Focused Exam Lactic Acid Level Laboratory Tests Test 08/14/16 07:10 Alanine Aminotransferase (ALT/SGPT) 17U/L (0-55) Albumin 3.5G/DL (3.2-4.5) Alkaline Phosphatase 81U/L (40-136) Anion Gap 16MMOL/L (5-14) H Aspartate Amino Transf (AST/SGOT) 20U/L (5-34) BUN/Creatinine Ratio 5 Blood Urea Nitrogen 37MG/DL (7-18) H Calcium Level 8.8MG/DL (8.5-10.1) Carbon Dioxide Level 24MMOL/L (21-32) Chloride Level 97MMOL/L (98-107) L Creatinine 8.17MG/DL (0.60-1.30) H Estimat Glomerular Filtration Rate 6 Glucose Level 319MG/DL (70-105) H Lactic Acid Level 1.11MMOL/L (0.50-2.00) Magnesium Level 1.7MG/DL (1.8-2.4) L Potassium Level 3.0MMOL/L (3.6-5.0) L Sodium Level 137MMOL/L (135-145) Total Bilirubin 0.4MG/DL (0.1-1.0) Total Protein 6.6G/DL (6.4-8.2) Troponin I < 0.30NG/ML (<0.30) Progress/Results/Core Measures Results/Orders Lab Results Laboratory Tests Test 08/14/16 07:10 08/14/16 07:18 08/14/16 08:55 Range/Units Activated Partial Thromboplast Time 31 24-35 SEC Alanine Aminotransferase (ALT/SGPT) 17 0-55 U/L Albumin 3.5 3.2-4.5 G/DL Alkaline Phosphatase 81 40-136 U/L Anion Gap 16 H 5-14 MMOL/L Aspartate Amino Transf (AST/SGOT) 20 5-34 U/L BUN/Creatinine Ratio 5 Basophils # (Auto) 0.0 0.0-0.1 10^3/uL Basophils (%) (Auto) 0 0-10 % Blood Urea Nitrogen 37 H 7-18 MG/DL Calcium Level 8.8 8.5-10.1 MG/DL Carbon Dioxide Level 24 21-32 MMOL/L Chloride Level 97 L 98-107 MMOL/L Creatinine 8.17 H 0.60-1.30 MG/DL Eosinophils # (Auto) 0.0 0.0-0.3 10^3/uL Eosinophils (%) (Auto) 0 0-10 % Estimat Glomerular Filtration Rate 6 Glucose Level 319 H 70-105 MG/DL Hematocrit 32 L 40-54 % Hemoglobin 10.6 L 13.3-17.7 G/DL INR Comment 1.1 0.8-1.4 Lactic Acid Level 1.11 0.50-2.00 MMOL/L Lymphocytes # (Auto) 0.9 L 1.0-4.0 X 10^3 Lymphocytes (%) (Auto) 12 12-44 % Magnesium Level 1.7 L 1.8-2.4 MG/DL Mean Corpuscular Hemoglobin 27 25-34 PG Mean Corpuscular Hemoglobin Concent 33 32-36 G/DL Mean Corpuscular Volume 81 80-99 FL Mean Platelet Volume 9.2 7.4-10.4 FL Monocytes # (Auto) 0.4 0.0-1.0 X 10^3 Monocytes (%) (Auto) 6 0-12 % Neutrophils # (Auto) 6.3 1.8-7.8 X 10^3 Neutrophils (%) (Auto) 82 H 42-75 % Platelet Count 224 130-400 10^3/uL Potassium Level 3.0 L 3.6-5.0 MMOL/L Prothrombin Time 13.8 12.2-14.7 SEC Red Blood Count 4.00 L 4.35-5.85 10^6/uL Red Cell Distribution Width 14.9 H 10.0-14.5 % Sodium Level 137 135-145 MMOL/L Total Bilirubin 0.4 0.1-1.0 MG/DL Total Protein 6.6 6.4-8.2 G/DL Troponin I < 0.30 <0.30 NG/ML White Blood Count 7.7 4.3-11.0 10^3/uL Charlie Test YES-POS YES-POS Arterial Blood Base Excess 1.7 2.2 -2.5-2.5 MMOL/L Arterial Blood HCO3 27 26 23-27 MMOL/L Arterial Blood Oxygen Saturation 96 99 94-100 % Arterial Blood Partial Pressure CO2 59 H 43 35-45 MMHG Arterial Blood Partial Pressure O2 97 H 127 H 79-93 MMHG Arterial Blood Total CO2 28.3 27.4 21.0-31.0 MMOL/L Arterial Blood pH 7.30 *L 7.41 7.37-7.43 Blood Gas Inspired Oxygen NA 60% Blood Gas Patient Temperature 104.0 101.5 Blood Gas Puncture Site NA LT RAD Blood Gas Ventilator Setting NA NO Micro Results Microbiology 08/14/16 Influenza Types A,B Antigen (LUPILLO) - Final, Complete My Orders Orders-SHARLA DOW DO Accucheck Stat ONCE (08/14/16 07:06) Ekg Tracing (08/14/16 07:06) O2 (08/14/16 07:06) Monitor-Rhythm Ecg Trace Only (08/14/16 07:06) Cbc With Automated Diff (08/14/16 07:06) Comprehensive Metabolic Panel (08/14/16 07:06) Magnesium (08/14/16 07:06) Protime With Inr (08/14/16 07:06) Partial Thromboplastin Time (08/14/16 07:06) Troponin I (08/14/16 07:06) Chest 1 View, Ap/Pa Only (08/14/16 07:06) Albuterol/Ipra Inhalation Soln (Duoneb I (08/14/16 07:13) Arterial Blood Gas (08/14/16 07:15) Lactic Acid Analyzer (08/14/16 07:15) Blood Culture (08/14/16 07:15) Influenza A And B Antigens (08/14/16 07:15) Albuterol/Ipra Inhalation Soln (Duoneb I (08/14/16 07:15) Rt Request For Service (08/14/16 07:15) Svn Sm Volume Nebulizer Rt-Rfs (08/14/16 07:15) Albuterol/Ipra Inhalation Soln (Duoneb I (08/14/16 07:45) Svn Sm Volume Nebulizer Rt-Rfs (08/14/16 07:36) Ceftriaxone Injection (Rocephin Injectio (08/14/16 08:15) Arterial Blood Gas (08/14/16 08:55) Vancomycin Injection (Vancomycin Injecti (08/14/16 09:15) Nitroglycerin Ointment (Nitrobid Ointme (08/14/16 09:30) Medications Given in ED Current Medications Medications Dose Ordered Sig/David Route Start Time Stop Time Status Last Admin Dose Admin Albuterol/ Ipratropium 3 ml ONCE ONCE INH 08/14/16 07:15 08/14/16 07:17 DC 08/14/16 07:20 3 ML Albuterol/ Ipratropium 3 ml 3 ml ONCE ONCE INH 08/14/16 07:45 08/14/16 07:46 DC 08/14/16 07:37 3 ML Ceftriaxone Sodium 1000 mg/ Sodium Chloride 50 ml @ 100 mls/hr ONCE ONCE IV 08/14/16 08:15 08/14/16 08:44 DC 08/14/16 08:35 100 MLS/HR Nitroglycerin 1 inch ONCE ONCE TOP 08/14/16 09:30 08/14/16 09:31 DC 08/14/16 09:21 1 INCH Vancomycin HCl/ Sodium Chloride 250 ml @ 250 mls/hr ONCE ONCE IV 08/14/16 09:15 08/14/16 10:14 08/14/16 09:21 250 MLS/HR Vital Signs/I&O Vital Sign - Last 12Hours 08/14/16 08/14/16 08/14/16 08/14/16 07:03 07:20 07:34 07:37 Temp 104.0 Pulse 94 Resp 22 B/P 188/119 Pulse Ox 97 97 98 O2 Delivery Nonrebreather O2 Flow Rate 10 10 10 10 08/14/16 08/14/16 07:52 08:01 Pulse 94 92 Resp 26 18 B/P 141/70 Pulse Ox 96 100 O2 Delivery NIV Bilevel O2 Flow Rate 60 Blood Pressure Mean: 93 Progress Note : Progress Note MUCH IMPROVEMENT WITH NEB TREATMENTS AND BIPAP--INCREASED AERATION, NO WHEEZING , O2 SATS IN UPPER 90'S AND PT STATES HE FEELS LIKE HE CAN BREATHE BETTER TEMP 104 ON ARRIVAL--PT STATES HE ABSOLUTELY CANNOT TAKE TYLENOL OR IBUPROFEN DUE TO LIVER TRANSPLANT AND RENAL FAILURE--ICE PACKS PLACED IN BILATERAL AXILLA AND GROIN TO COOL PT. TEMP DOWN TO 102.9 AT TIME OF TRANSFER REPEAT ABG'S PRIOR TO TRANSFER MUCH IMPROVED BP DOWN WITH NITROPASTE NO DETERIORATION IN PT'S CONDITION DURING ER STAY ECG Initial ECG Impression Time: 07:32 Initial ECG Rate: 93 Initial ECG Rhythm: Normal Sinus Initial ECG Impression: Nonspecific Changes Initial ECG Comparisson: Unchanged (EXCEPT FOR MILD AXIS CHANGE) Diagnostic Imaging Comments CXR--NO ACUTE PROCESS, PER RADIOLOGIST REPORT @ 0800 Reviewed: Reviewed by Me Departure Communication Progress Notes 0800--CALLED [facility] DIRECT CALL. NO ANSWER, MESSAGE LEFT ON MACHINE 0820--CALLED [facility] DIRECT CALL, NO ANSWER, MESSAGE LEFT ON MACHINE AGAIN 0822--[facility] DIRECT CALL RETURNED CALL, PAGING HOSPITALIST. DID NOT ANSWER PAGE AFTER 20 MINUTES OR MORE. THEY WILL CONTINUE TO ATTEMPT TO CONTACT HOSPITALIST AND CALL BACK. 0850--SPOKE WITH DR. AYALA, CLAM DIGGER, ACCEPTS PT FOR ADMIT. Impression Impression: Primary Impression: CLINICAL PNEUMONIA Additional Impressions: Fever Hypoxia Cough ESRD on dialysis Uncontrolled hypertension Disposition: XFER SHT-TRM HOSP Condition: Improved Departure-Patient Inst. Referrals: RAYA PIKE DO (PCP/Family) Primary Care Physician SHARLA DOW DO Aug 14, 2016 08:32
[2016-08-14 09:01] LABS: ABG BASE EXCESS 2.2 MMOL/L (-2.5-2.5); ABG HCO3 26 MMOL/L (23-27); ABG OXYGEN SATURATION 99 % (94-100); ABG PCO2 43 MMHG (35-45); ABG PH 7.41 (7.37-7.43); ABG PO2 127 MMHG (79-93); ABG TCO2 27.4 MMOL/L (21.0-31.0)
[2016-08-14 09:02] LABS: ALLENS TEST YES-POS; PATIENT TEMP 101.5
[2016-08-14] MEDS ORDERED: VANCOMYCIN INJECTION 1,000 MG in NS (IVPB) 250 ML IV ONE (09:15)
[2016-08-14] MEDS ORDERED: NITROGLYCERIN 2% OINT 1 GM UNIT DOSE PACKET TOP ONE (09:30)
[2016-08-14 09:58] VITALS: BP 184/87
== END 2016-08-14 08:48 | disposition short-term general hospital (02) ==
LOC: EDUNIT# 07:03 → ER 07:04
DX: J18.9 Pneumonia, unspecified organism (principal); R09.02 Hypoxemia; R50.9 Fever, unspecified; I16.0 Hypertensive urgency; I12.0 Hypertensive chronic kidney disease with stage 5 chronic kidney disease or end stage renal disease; N18.6 End stage renal disease; Z99.2 Dependence on renal dialysis; E11.9 Type 2 diabetes mellitus without complications; J44.9 Chronic obstructive pulmonary disease, unspecified; Z94.4 Liver transplant status; Z79.82 Long term (current) use of aspirin; Z79.899 Other long term (current) drug therapy; Z87.891 Personal history of nicotine dependence
CPT/HCPCS: 36415; 71010; 80053; 82805; 83605; 83735; 84484; 85025; 85610; 85730; 87040; 87804; 93005; 93041; 94640; 96365; 96367

== ENCOUNTER 2016-08-14 08:00 | Outpatient (RCR) | payer MEDICARE ==
--- OUTSIDE RECORDS SUMMARY | 2016-08-14 08:29 | XMS REPORT | Continuity of Care Document ---
Author Author [facility] Organization [facility] Address Unknown Phone Unavailable Care Team Providers Care Patient Registration Rep Name Role Phone Faizan Lin PCP [phone] Source Comments Some departments are not documenting in the electronic medical record. If you do not see the information that you expected, contact Release of Information in the Health Information Management department at [phone] for further assistance in locating additional records.[facility] Active Allergies and Adverse Reactions Allergen [...] 16 PREVENTION OF LIVER TRANSPLANT REJECTION PEG 8176-Tzrcrdpzyahr-Otc Take per prep 2 Each 0 06/02/19 [...] with medication access, 24hr home care or longterm placement. -Follow up: Transplant Surgery in 2 [...] 08/02/2012 Overview: 01/06/13: Postop insulin gtt per [place] protocol. 01/07/13: Consult endocrine for DM management. [...] 07/17/2016 Refill Dermatology Fabiana Rodriguez MD 07/14/2016 [facility] Regan Brock MD Colon cancer screening Encounter 07/14/2016 Surgery Regan Brock MD Canceled COLONOSCOPY 07/07/2016 Procedure visit Dermatology Mae, Squamous cell carcinoma MD Jasmin of skin of left taoist (Primary Dx) 07/03/2016 Telephone Dermatology Fabiana Rodriguez MD Provider Discussion About Patient 06/30/2016 Refill Transplant Surgery Regan Brock MD 06/30/2016 Orders Only Transplant Surgery Rebeca Rosaroi Disorder of bone density and structure, unspecified ; Osteoporosis screening 06/28/2016 Refill Gastroenterology [facility] of uncertain Encounter behavior, unspecified [...] Taken Blood Pressure 145/65 05/15/2016 10:57 AM GEM STONE CUTTER Pulse 83 05/15/2016 10:57 AM GEM STONE CUTTER Temperature 36.7 C (98 F) 05/15/2016 10:57 AM GEM STONE CUTTER Respiratory Rate 16 05/15/2016 10:57 AM GEM STONE CUTTER Height 1.88 m (6' 2") 07/24/2016 1:57 PM GEM STONE CUTTER Weight 111.131 kg (245 lb) 07/24/2016 1:57 PM GEM STONE CUTTER Body Mass Index 31.44 07/24/2016 1:57 PM GEM STONE CUTTER Oxygen Saturation 95% 05/15/2016 10:57 AM GEM STONE CUTTER Plan of Care Date Type Specialty Providers Description 08/25/2016 Appointment Dermatology Rah Franks MD [address] [place] [address] [phone] (Fax) 05/14/2017 Appointment Transplant Surgery Regan Brock MD [address] [facility] [id number] [place] [address] [phone] (Fax) Health Maintenance Due Date Last Done [...] Procedure Name Priority Date/Time Associated Diagnosis Comments [place] REPAIR COMPLEX Routine 07/07/2016 Squamous cell carcinoma Results for this F/C/C/M/N/AX/G/H/F 5:18 PM GEM STONE CUTTER of skin of left taoist procedure are in the 2.6-7.5 CM results section. [place] MOHS MICROGRAPHIC Routine 07/07/2016 Squamous cell carcinoma Results for this H/N/H/F/G 1ST STAGE 5 5:18 PM GEM STONE CUTTER of skin of left taoist procedure are in the BLOCKS results section. TX MOHS MICROGRAPHIC Routine 07/07/2016 Squamous cell carcinoma Results for this H/N/H/F/G EACH ADDL STAGE 5:18 PM GEM STONE CUTTER of skin of left taoist procedure are in the results section. Results from Last 3 Months SKIN LESION DESTRUCTION (07/24/2016 2:30 PM)MOHS PROCEDURE (07/07/2016 5:18 PM ) Narrative Fabiana Rodriguez MD 07/07/20165:18 PM Mohs Micrographic Surgery Operative Report Attending Physician Surgeon: Fabiana Rodriguez M.D. Resident Physician Surgeon: Jasmin Wall M.D. Diagnosis: SCC Location: Left inferior taoist Pre-Operative Size: 1.2x0.9cm Prep Cleanser: Betadine Anesthesia: [...] Surgeon: Jasmin Wall MD Location: Left inferior taoist Anesthesia: 1% Buffered Lidocaine with Epinephrine 1:100,000 [...] PM) Component Value Range PATHOLOGY REPORT [facility] [email or web address] Luana Lawler MD, PhD, Director of Anatomic Pathology Department of Pathology and Laboratory Medicine [address] [place] [phone] Surgical Pathology Office: [phone] SURGICAL PATHOLOGY REPORT NAME: LIZ HENDRICKS SURG PATH #: [id number] MR #: [id number] SPECIMEN CLASS: SR BILLING #: [id number] ALT ID #: LOCATION: DERM DATE OF PROCEDURE: 06/27/2016 AGE: 75 SEX: M DATE RECEIVED: 06/27/2016 : 1940 TIME RECEIVED: 15:03 PHYSICIAN: RAH FRANKS DATE OF REPORT: 06/29/2016 COPY TO: GA FRANKLIN MD DATE OF PRINTIN06/29/2016 ################################################## ###################### Final Diagnosis: A. Left inferior taoist: -- Minimally invasive squamous cell carcinoma Attestation: [...] ################################################## ###################### Material Received: A: left inferior taoist History: A. SCCIS >SCC >AK. Gross Description: A. Labeled "left inferior taoist" is a 1.5 x 1.0 x 0.1 cm shave, trisected, all in A1. (jdn) jdn2/06/27/2016 SKIN BIOPSY/EXCISION OF SKIN LESION (06/27/2016 2:04 PM)SKIN LESION DESTRUCTION (06/27/2016 2:03 PM)BONE DENSITY SPINE/HIP (06/15/2016 11:37 AM) SKIN LESION DESTRUCTION (05/30/2016 3:18 PM)
[2016-08-14 08:39] LABS: BASOPHILS % (AUTO) 0 % (0-10); EOSINOPHILS % (AUTO) 0 % (0-10); LYMPHOCYTES # (AUTO) 0.8 X 10^3 (1.0-4.0); LYMPHOCYTES % (AUTO) 9 % (12-44); MEAN CORPUSCULAR HEMOGLOBIN 27 PG (25-34); MEAN CORPUSCULAR HGB CONC 33 G/DL (32-36); MEAN CORPUSCULAR VOLUME 81 FL (80-99); MEAN PLATELET VOLUME 9.4 FL (7.4-10.4); MONOCYTES # (AUTO) 0.5 X 10^3 (0.0-1.0); MONOCYTES % (AUTO) 5 % (0-12); NEUTROPHILS # (AUTO) 7.3 X 10^3 (1.8-7.8); NEUTROPHILS % (AUTO) 86 % (42-75); PLATELET COUNT 223 10^3/uL (130-400); RED BLOOD COUNT 3.89 10^6/uL (4.35-5.85); WHITE BLOOD COUNT 8.6 10^3/uL (4.3-11.0)
[2016-08-14 08:49] LABS: ALBUMIN 3.6 G/DL (3.2-4.5); BILIRUBIN,TOTAL 0.4 MG/DL (0.1-1.0); CALCIUM 8.9 MG/DL (8.5-10.1); CREATININE SERUM 8.22 MG/DL (0.60-1.30); MAGNESIUM 1.8 MG/DL (1.8-2.4); PHOSPHORUS 5.6 MG/DL (2.3-4.7); POTASSIUM 3.3 MMOL/L (3.6-5.0); TOTAL PROTEIN 6.8 G/DL (6.4-8.2)
--- OUTSIDE RECORDS SUMMARY | 2016-08-15 07:17 | XMS REPORT | Continuity of Care Document ---
Author Author [facility] Organization [facility] Address Unknown Phone Unavailable Care Team Providers Care Central [employer] Attendant Name Role Phone Faizan Lin PCP [phone] Source Comments Some departments are not documenting in the electronic medical record. If you do not see the information that you expected, contact Release of Information in the Health Information Management department at [phone] for further assistance in locating additional records.[facility] Active Allergies and Adverse Reactions Allergen [...] 16 PREVENTION OF LIVER TRANSPLANT REJECTION PEG [id number] Take per prep 2 Each 0 06/02/19 [...] with medication access, 24hr home care or intermediate placement. -Follow up: Transplant Surgery in 2 [...] 08/02/2012 Overview: 01/06/13: Postop insulin gtt per [place] protocol. 01/07/13: Consult endocrine for DM management. [...] Recent Encounters Date Type Specialty Providers Description 08/14/2016 Orders Only Transplant Surgery Minerva Pizano Liver replaced by transplant (HCC) 07/31/2016 Refill Gastroenterology Bridget Yip MD 07/24/2016 Office Visit Dermatology Lorenzo Higgins MD Actinic keratosis (Primary Dx); History of basal cell cancer; History of squamous cell carcinoma; Immunosuppressed status (HCC) 07/17/2016 Refill Dermatology Fabiana Rodriguez MD 07/14/2016 Surgery Regan Brock MD Canceled COLONOSCOPY 07/07/2016 Procedure visit Dermatology Mae, Squamous cell carcinoma MD Jasmin of skin of left scientology (Primary Dx) 07/03/2016 Telephone Dermatology Fabiana Rodriguez MD Provider Discussion About Patient 06/30/2016 Refill Transplant Surgery Regan Brock MD 06/30/2016 Orders Only Transplant Surgery Rebeca Rosario Disorder of bone density and structure, unspecified ; Osteoporosis screening 06/28/2016 Refill Gastroenterology Bridget Yip MD 06/27/2016 [facility] Rah Floyd MD Neoplasm of uncertain Encounter behavior, unspecified [...] Taken Blood Pressure 145/65 05/15/2016 10:57 AM STOGY MAKER Pulse 83 05/15/2016 10:57 AM STOGY MAKER Temperature 36.7 C (98 F) 05/15/2016 10:57 AM STOGY MAKER Respiratory Rate 16 05/15/2016 10:57 AM STOGY MAKER Height 1.88 m (6' 2") 07/24/2016 1:57 PM STOGY MAKER Weight 111.131 kg (245 lb) 07/24/2016 1:57 PM STOGY MAKER Body Mass Index 31.44 07/24/2016 1:57 PM STOGY MAKER Oxygen Saturation 95% 05/15/2016 10:57 AM STOGY MAKER Plan of Care Date Type Specialty Providers Description 08/25/2016 Appointment Dermatology Rah Franks MD [address] [facility] [address] [place] [address] [phone] (Fax) 05/14/2017 Appointment Transplant Surgery Regan Brock MD [address] [facility] [id number] [place] [address] [phone] (Fax) Health Maintenance Due Date Last Done [...] Procedure Name Priority Date/Time Associated Diagnosis Comments GA REPAIR COMPLEX Routine 07/07/2016 Squamous cell carcinoma Results for this F/C/C/M/N/AX/G/H/F 5:18 PM STOGY MAKER of skin of left scientology procedure are in the 2.6-7.5 CM results section. GA MOHS MICROGRAPHIC Routine 07/07/2016 Squamous cell carcinoma Results for this H/N/H/F/G 1ST STAGE 5 5:18 PM STOGY MAKER of skin of left scientology procedure are in the BLOCKS results section. GA MOHS MICROGRAPHIC Routine 07/07/2016 Squamous cell carcinoma Results for this H/N/H/F/G EACH ADDL STAGE 5:18 PM STOGY MAKER of skin of left scientology procedure are in the results section. Results from Last 3 Months PHOSPHORUS (08/14/2016 7:55 AM) Component Value Range Phosphorus 5.6 (H) 2.3-4.7 H Specimen Blood Narrative Outside Lab Verified by Minerva Lima on 08/14/2016. MAGNESIUM (08/14/2016 7:55 AM) Component Value Range Magnesium 1.8 1.8-2.4 MG/DL Specimen Blood Narrative Outside Lab Verified by Minerva Lima on 08/14/2016. COMPREHENSIVE METABOLIC PANEL (08/14/2016 7:55 AM) Component Value Range Sodium 138 135-145 MMOL/L Potassium 3.3 (L) 3.6-5.0 MMOL/L Chloride 96 (L) 98-107 MMOL/L CO2 25 21-32 MMOL/L Anion Gap 17 (H) 5-14 MMOL/L Blood Urea Nitrogen 38 (H) 7-18 MG/DL Creatinine 8.22 (H) 0.60-1.30 MG/DL eGFR Non 6 mL/min/1.73 M2 Glucose 285 (H) 70-105 H Calcium 8.9 8.5-10.1 MG/DL Total Bilirubin 0.4 0.1-1.0 MG/DL Alk Phosphatase 81 40-136 U/L AST (SGOT) 20 5-34 U/L ALT (SGPT) 18 0-55 U/L Total Protein 6.8 6.4-8.2 G/DL Albumin 3.6 3.2-4.5 G/DL Specimen Blood Narrative Outside Lab Verified by Minerva Lima on 08/14/2016. CBC AND DIFF (08/14/2016 7:55 AM) Component Value Range White Blood Cells 8.6 4.3-11.0 10^3/uL RBC 3.89 (L) 4.35-5.85 10^6/uL Hemoglobin 10.4 (L) 13.3-17.7 G/DL Hematocrit 32 (L) 40-54 % MCV 81 80-99 FL MCH 27 25-34 PG MCHC 33 32-36 G/DL RDW 15.0 (H) 10.0-14.5 % Platelet Count 223 130-400 10^3/uL Neutrophils 86 (H) 42-75 % Lymphocytes 9 (L) 12-44 % Monocytes 5 0-12 % Eosinophil 0 0-10 % Basophil 0 0-10 % Absolute Neutrophil Count 7.3 1.8-7.8 X10^3 Absolute Lymph Count 0.8 (L) 1.0-4.0 X10^3 Absolute Monocyte Count 0.5 0.0-1.0 X10^3 Absolute Eosinophil Count 0.0 0.0-0.3 10^3/uL Absolute Basophil Count 0.0 0.0-0.1 10^3/uL Specimen Blood Narrative Outside Lab Verified by Minerva Lima on 08/14/2016. SKIN LESION DESTRUCTION (07/24/2016 2:30 PM)MOHS PROCEDURE (07/07/2016 5:18 PM ) Narrative Fabiana Rodriguez MD 07/07/20165:18 PM Mohs Micrographic Surgery Operative Report Attending Physician Surgeon: Fabiana Rodriguez M.D. Resident Physician Surgeon: Jasmin Wall M.D. Diagnosis: SCC Location: Left inferior scientology Pre-Operative Size: 1.2x0.9cm Prep Cleanser: Betadine Anesthesia: [...] Surgeon: Jasmin Wall MD Location: Left inferior scientology Anesthesia: 1% Buffered Lidocaine with Epinephrine 1:100,000 [...] PM) Component Value Range PATHOLOGY REPORT [facility] [email or web address] Luana Lawler MD, PhD, Director of Anatomic Pathology Department of Pathology and Laboratory Medicine [address] [place] [id number] Surgical Pathology Office: [phone] SURGICAL PATHOLOGY REPORT NAME: LIZ HENDRICKS SURG PATH #: [id number] MR #: [id number] SPECIMEN CLASS: SR BILLING #: [id number] ALT ID #: LOCATION: DERM DATE OF PROCEDURE: 06/27/2016 AGE: 75 SEX: M DATE RECEIVED: 06/27/2016 : 1940 TIME RECEIVED: 15:03 PHYSICIAN: RAH FRANKS DATE OF REPORT: 06/29/2016 COPY TO: GA FRANKLIN MD DATE OF PRINTIN06/29/2016 ################################################## ###################### Final Diagnosis: A. Left inferior scientology: -- Minimally invasive squamous cell carcinoma Attestation: By this signature, I attest that I have personally formulated the final interpretation expressed in this report and that the above diagnosis is based upon my examination of the slides and/or other material indicated in this report. +++Electronically Signed Out By+++ 06/29/2016 Interpreted by: Alexis Dowling MD, Attending Physician 06/29/2016 ################################################## ###################### Material Received: A: left inferior scientology History: A. SCCIS >SCC >AK. Gross Description: A. Labeled "left inferior scientology" is a 1.5 x 1.0 x 0.1 cm shave, trisected, all in A1. (jdn) jdn2/06/27/2016 SKIN BIOPSY/EXCISION OF SKIN LESION (06/27/2016 2:04 PM)SKIN LESION DESTRUCTION (06/27/2016 2:03 PM)BONE DENSITY SPINE/HIP (06/15/2016 11:37 AM) SKIN LESION DESTRUCTION (05/30/2016 3:18 PM)
[2016-08-18 08:14] LABS: EVEROLIMUS 5.9 ng/mL (***)
== END 2016-11-12 | disposition home or self-care (01) ==
LOC: LAB 08:00
PROVIDERS: ATTEND Internal Medicine
DX: Z48.298 Encounter for aftercare following other organ transplant (principal); Z94.4 Liver transplant status
CPT/HCPCS: 36415; 80053; 80299; 82977; 83735; 84100; 85025

== ENCOUNTER → 2016-11-21 | Outpatient (CLI) | payer MEDICARE ==
[2016-11-21 09:41] LABS: CHOLESTEROL 113 MG/DL (< 200); DIRECT LDL 42 MG/DL (1-129); TRIGLYCERIDES 156 MG/DL (<150); VLDL CHOLESTEROL 31 MG/DL (5-40)
[2016-11-21 09:59] LABS: LIPEMIA 1 (-100-49)
== END ==
LOC: LAB 08:42
PROVIDERS: ATTEND Internal Medicine
DX: E55.9 Vitamin D deficiency, unspecified (principal); Z79.899 Other long term (current) drug therapy
CPT/HCPCS: 36415; 80061; 82306

== ENCOUNTER 2016-12-26 07:30 | Outpatient (RCR) | payer MEDICARE ==
[2016-11-21 09:13] LABS: BASOPHILS % (AUTO) 0 % (0-10); EOSINOPHILS # (AUTO) 0.1 10^3/uL (0.0-0.3); EOSINOPHILS % (AUTO) 2 % (0-10); LYMPHOCYTES # (AUTO) 0.9 X 10^3 (1.0-4.0); LYMPHOCYTES % (AUTO) 25 % (12-44); MEAN CORPUSCULAR HEMOGLOBIN 27 PG (25-34); MEAN CORPUSCULAR HGB CONC 33 G/DL (32-36); MEAN CORPUSCULAR VOLUME 83 FL (80-99); MEAN PLATELET VOLUME 8.7 FL (7.4-10.4); MONOCYTES # (AUTO) 0.4 X 10^3 (0.0-1.0); MONOCYTES % (AUTO) 12 % (0-12); NEUTROPHILS # (AUTO) 2.2 X 10^3 (1.8-7.8); NEUTROPHILS % (AUTO) 61 % (42-75); PLATELET COUNT 165 10^3/uL (130-400); RED BLOOD COUNT 4.26 10^6/uL (4.35-5.85); RED CELL DISTRIBUTION WIDTH 16.9 % (10.0-14.5); WHITE BLOOD COUNT 3.6 10^3/uL (4.3-11.0)
[2016-11-21 09:38] LABS: ALBUMIN 4.1 GM/DL (3.2-4.5); BILIRUBIN,TOTAL 0.6 MG/DL (0.1-1.0); CALCIUM 9.9 MG/DL (8.5-10.1); CREATININE SERUM 7.7 MG/DL (0.60-1.30); ICTERUS 0.3 (-100-1.9); MAGNESIUM 2.3 MG/DL (1.8-2.4); PHOSPHORUS 4.7 MG/DL (2.3-4.7); POTASSIUM 3.8 MMOL/L (3.6-5.0)
[2016-11-27 08:16] LABS: EVEROLIMUS 4.3 ng/mL (***)
[2016-12-26 07:47] LABS: BASOPHILS % (AUTO) 0 % (0-10); EOSINOPHILS # (AUTO) 0.1 10^3/uL (0.0-0.3); EOSINOPHILS % (AUTO) 3 % (0-10); LYMPHOCYTES # (AUTO) 0.8 X 10^3 (1.0-4.0); LYMPHOCYTES % (AUTO) 32 % (12-44); MEAN CORPUSCULAR HEMOGLOBIN 28 PG (25-34); MEAN CORPUSCULAR HGB CONC 32 G/DL (32-36); MEAN CORPUSCULAR VOLUME 88 FL (80-99); MEAN PLATELET VOLUME 7.7 FL (7.4-10.4); MONOCYTES # (AUTO) 0.3 X 10^3 (0.0-1.0); MONOCYTES % (AUTO) 12 % (0-12); NEUTROPHILS # (AUTO) 1.4 X 10^3 (1.8-7.8); NEUTROPHILS % (AUTO) 54 % (42-75); PLATELET COUNT 166 10^3/uL (130-400); RED BLOOD COUNT 3.99 10^6/uL (4.35-5.85); RED CELL DISTRIBUTION WIDTH 19.6 % (10.0-14.5); WHITE BLOOD COUNT 2.7 10^3/uL (4.3-11.0)
[2016-12-26 08:04] LABS: ALBUMIN 4.2 GM/DL (3.2-4.5); BILIRUBIN,TOTAL 0.7 MG/DL (0.1-1.0); CALCIUM 10.1 MG/DL (8.5-10.1); CREATININE SERUM 7.2 MG/DL (0.60-1.30); MAGNESIUM 2.4 MG/DL (1.8-2.4); PHOSPHORUS 4.7 MG/DL (2.3-4.7); POTASSIUM 3.7 MMOL/L (3.6-5.0); TOTAL PROTEIN 7.3 GM/DL (6.4-8.2)
[2016-12-30 15:00] LABS: EVEROLIMUS 7.1 ng/mL (***)
== END 2017-02-19 | disposition home or self-care (01) ==
LOC: LAB 07:30
PROVIDERS: ATTEND Internal Medicine
DX: Z48.298 Encounter for aftercare following other organ transplant (principal); Z94.4 Liver transplant status
CPT/HCPCS: 36415; 80053; 80299; 82977; 83735; 84100; 85025

== ENCOUNTER 2017-02-22 08:48 | Outpatient (RCR) | payer MEDICARE ==
[2017-02-22 08:30] LABS: BASOPHILS % (AUTO) 0 % (0-10); EOSINOPHILS % (AUTO) 1 % (0-10); LYMPHOCYTES % (AUTO) 29 % (12-44); MEAN CORPUSCULAR HEMOGLOBIN 30 PG (25-34); MEAN CORPUSCULAR HGB CONC 33 G/DL (32-36); MEAN CORPUSCULAR VOLUME 93 FL (80-99); MEAN PLATELET VOLUME 9.1 FL (7.4-10.4); MONOCYTES # (AUTO) 0.4 X 10^3 (0.0-1.0); MONOCYTES % (AUTO) 11 % (0-12); NEUTROPHILS # (AUTO) 1.9 X 10^3 (1.8-7.8); NEUTROPHILS % (AUTO) 58 % (42-75); PLATELET COUNT 205 10^3/uL (130-400); RED BLOOD COUNT 3.86 10^6/uL (4.35-5.85); RED CELL DISTRIBUTION WIDTH 16.4 % (10.0-14.5); WHITE BLOOD COUNT 3.3 10^3/uL (4.3-11.0)
[2017-02-22 08:58] LABS: ALBUMIN 4.3 GM/DL (3.2-4.5); BILIRUBIN,TOTAL 0.7 MG/DL (0.1-1.0); CALCIUM 10.2 MG/DL (8.5-10.1); CREATININE SERUM 7.65 MG/DL (0.60-1.30); MAGNESIUM 2.3 MG/DL (1.8-2.4); PHOSPHORUS 6.9 MG/DL (2.3-4.7); POTASSIUM 3.7 MMOL/L (3.6-5.0); TOTAL PROTEIN 7.5 GM/DL (6.4-8.2)
[2017-02-26 06:55] LABS: EVEROLIMUS 7.3 ng/mL (***)
== END 2017-02-24 | disposition home or self-care (01) ==
LOC: LAB 08:48
PROVIDERS: ATTEND Internal Medicine
DX: Z48.298 Encounter for aftercare following other organ transplant (principal); Z94.4 Liver transplant status; Z79.899 Other long term (current) drug therapy
CPT/HCPCS: 36415; 80053; 80299; 82977; 83735; 84100; 85025

== ENCOUNTER 2017-05-31 08:21 | Outpatient (RCR) | payer MEDICARE ==
[2017-04-16 08:20] LABS: BASOPHILS % (AUTO) 0 % (0-10); EOSINOPHILS # (AUTO) 0.1 10^3/uL (0.0-0.3); EOSINOPHILS % (AUTO) 1 % (0-10); HEMATOCRIT 32 % (40-54); HEMOGLOBIN 10.4 G/DL (13.3-17.7); LYMPHOCYTES # (AUTO) 0.9 X 10^3 (1.0-4.0); LYMPHOCYTES % (AUTO) 25 % (12-44); MEAN CORPUSCULAR HEMOGLOBIN 30 PG (25-34); MEAN CORPUSCULAR HGB CONC 33 G/DL (32-36); MEAN CORPUSCULAR VOLUME 93 FL (80-99); MEAN PLATELET VOLUME 8.4 FL (7.4-10.4); MONOCYTES # (AUTO) 0.3 X 10^3 (0.0-1.0); MONOCYTES % (AUTO) 8 % (0-12); NEUTROPHILS # (AUTO) 2.4 X 10^3 (1.8-7.8); NEUTROPHILS % (AUTO) 66 % (42-75); PLATELET COUNT 238 10^3/uL (130-400); RED BLOOD COUNT 3.42 10^6/uL (4.35-5.85); RED CELL DISTRIBUTION WIDTH 16.5 % (10.0-14.5); WHITE BLOOD COUNT 3.7 10^3/uL (4.3-11.0)
[2017-04-16 08:40] LABS: ALBUMIN 4.3 GM/DL (3.2-4.5); BILIRUBIN,TOTAL 0.8 MG/DL (0.1-1.0); CALCIUM 10.2 MG/DL (8.5-10.1); CREATININE SERUM 7.44 MG/DL (0.60-1.30); MAGNESIUM 2.5 MG/DL (1.8-2.4); PHOSPHORUS 5.6 MG/DL (2.3-4.7); POTASSIUM 4.2 MMOL/L (3.6-5.0); TOTAL PROTEIN 7.8 GM/DL (6.4-8.2)
[2017-05-31 08:54] LABS: BASOPHILS % (AUTO) 0 % (0-10); EOSINOPHILS % (AUTO) 1 % (0-10); HEMATOCRIT 32 % (40-54); HEMOGLOBIN 10.2 G/DL (13.3-17.7); LYMPHOCYTES # (AUTO) 0.8 X 10^3 (1.0-4.0); LYMPHOCYTES % (AUTO) 17 % (12-44); MEAN CORPUSCULAR HEMOGLOBIN 29 PG (25-34); MEAN CORPUSCULAR HGB CONC 32 G/DL (32-36); MEAN CORPUSCULAR VOLUME 91 FL (80-99); MONOCYTES # (AUTO) 0.4 X 10^3 (0.0-1.0); MONOCYTES % (AUTO) 9 % (0-12); NEUTROPHILS # (AUTO) 3.5 X 10^3 (1.8-7.8); NEUTROPHILS % (AUTO) 73 % (42-75); PLATELET COUNT 197 10^3/uL (130-400); RED BLOOD COUNT 3.53 10^6/uL (4.35-5.85); RED CELL DISTRIBUTION WIDTH 14.6 % (10.0-14.5); WHITE BLOOD COUNT 4.8 10^3/uL (4.3-11.0)
[2017-05-31 09:15] LABS: ALBUMIN 4.2 GM/DL (3.2-4.5); BILIRUBIN,TOTAL 0.6 MG/DL (0.1-1.0); CALCIUM 10.7 MG/DL (8.5-10.1); CREATININE SERUM 8.88 MG/DL (0.60-1.30); MAGNESIUM 2.1 MG/DL (1.8-2.4); PHOSPHORUS 5.2 MG/DL (2.3-4.7); POTASSIUM 3.7 MMOL/L (3.6-5.0); TOTAL PROTEIN 8.1 GM/DL (6.4-8.2)
[2017-06-14] MEDS ORDERED: PANT40TA3 PO (11:05)
[2017-06-14] MEDS ORDERED: TACR1CAP8 PO (11:05)
[2017-06-14] MEDS ORDERED: TRAM50TA2 PO (11:05)
[2017-06-14] MEDS ORDERED: CALC600T80 PO (11:05)
[2017-06-14] MEDS ORDERED: ZINC50TA4 PO (11:05)
[2017-06-14] MEDS ORDERED: NIAC500T92 PO (11:05)
== END 2017-07-15 | disposition home or self-care (01) ==
LOC: LAB 08:21
PROVIDERS: ATTEND Internal Medicine
DX: Z48.298 Encounter for aftercare following other organ transplant (principal); Z94.4 Liver transplant status
CPT/HCPCS: 36415; 80053; 80299; 82977; 83735; 84100; 85025

== ENCOUNTER 2017-06-04 16:09 | Outpatient (RCR) | payer MEDICARE ==
[2017-06-14] MEDS ORDERED: TRAM50TA2 PO (11:05)
[2017-06-14] MEDS ORDERED: ZINC50TA4 PO (11:05)
[2017-06-14] MEDS ORDERED: CALC600T80 PO (11:05)
[2017-06-14] MEDS ORDERED: PANT40TA3 PO (11:05)
[2017-06-14] MEDS ORDERED: TACR1CAP8 PO (11:05)
[2017-06-14] MEDS ORDERED: NIAC500T92 PO (11:05)
[2017-07-23] MEDS ORDERED: CEPH-507 PO (20:12)
== END 2017-09-02 | disposition home or self-care (01) ==
LOC: LAB 16:09
PROVIDERS: ATTEND Family Medicine
DX: R19.7 Diarrhea, unspecified (principal)
CPT/HCPCS: 87324; 87449

== ENCOUNTER → 2017-06-04 | Outpatient (CLI) | payer MEDICARE ==
--- NOTE | 2017-06-04 19:07 | Diagnostic Imaging Report ---
INDICATION: Diarrhea. 2 views of the abdomen were obtained. FINDINGS: The lung bases are clear. There are multiple surgical clips in the central liver. There are surgical clips in right upper quadrant. Bowel gas pattern is nonspecific. There is no free air. There are no abnormal abdominal calcifications. IMPRESSION: Postsurgical changes of a nonspecific bowel gas pattern. Dictated by: Dictated on workstation # [id number]
== END ==
LOC: RAD 16:14
PROVIDERS: ATTEND Family Medicine
DX: R19.7 Diarrhea, unspecified (principal); Z98.890 Other specified postprocedural states
CPT/HCPCS: 74018

== ENCOUNTER 2017-06-14 05:32 | Outpatient (CLI) | payer MEDICARE ==
[~2017-06-14] VITALS: Ht 188 cm; Wt 108.9 kg
[2017-06-14] MEDS ORDERED: NIAC500T92 PO (11:05)
[2017-06-14] MEDS ORDERED: CALC600T80 PO (11:05)
[2017-06-14] MEDS ORDERED: PANT40TA3 PO (11:05)
[2017-06-14] MEDS ORDERED: ZINC50TA4 PO (11:05)
[2017-06-14] MEDS ORDERED: TACR1CAP8 PO (11:05)
[2017-06-14] MEDS ORDERED: TRAM50TA2 PO (11:05)
== END 2017-06-14 11:11 ==
LOC: PREOP 05:32
PROVIDERS: ATTEND Surgery
DX: Z01.818 Encounter for other preprocedural examination (principal); Z12.11 Encounter for screening for malignant neoplasm of colon; K21.9 Gastro-esophageal reflux disease without esophagitis

== ENCOUNTER → 2017-06-19 | Outpatient (CLI) | payer MEDICARE ==
[~2017-06-19] MED LIST changes: +CALC600T80 PO; +NIAC500T92 PO; +PANT40TA3 PO; +TACR1CAP8 PO; +ZINC50TA4 PO
[2017-06-19 12:46] LABS: HEMOGLOBIN 10.3 G/DL (13.3-17.7); MEAN PLATELET VOLUME 7.8 FL (7.4-10.4); RED BLOOD COUNT 3.66 10^6/uL (4.35-5.85); WHITE BLOOD COUNT 4.6 10^3/uL (4.3-11.0)
--- NOTE | 2017-06-19 13:02 | Diagnostic Imaging Report ---
INDICATION: Weakness and cough. TIME OF EXAM: 1:14 PM Comparison is made with prior study from 08/14/2016. FINDINGS: Airspace parenchymal density has developed in the right mid and upper lung field, suggestive of pneumonia. The left lung is clear. No effusion is seen. There is no pneumothorax. IMPRESSION: Right upper lobe pneumonia. Followup after course of therapy is recommended to confirm clearing. Dictated by: Dictated on workstation # [id number]
[2017-06-19 13:05] LABS: ALBUMIN 3.7 GM/DL (3.2-4.5); BILIRUBIN,TOTAL 0.5 MG/DL (0.1-1.0); CREATININE SERUM 8.59 MG/DL (0.60-1.30); POTASSIUM 3.6 MMOL/L (3.6-5.0); TOTAL PROTEIN 7.3 GM/DL (6.4-8.2)
== END ==
LOC: RAD 12:27
PROVIDERS: ATTEND Family Medicine
DX: J18.1 Lobar pneumonia, unspecified organism (principal); R19.7 Diarrhea, unspecified
CPT/HCPCS: 36415; 71046; 80053; 83880; 84443; 85027

== ENCOUNTER → 2017-06-28 | Outpatient (CLI) | payer MEDICARE ==
--- NOTE | 2017-06-28 12:23 | Diagnostic Imaging Report ---
INDICATION: Pneumonia. TIME OF EXAM: 12:14 PM Correlation is made with prior study from 06/19/2017. FINDINGS: The heart size is stable. There continues to be abnormal parenchymal density in the right upper lobe suggestive of pneumonia. Overall appearance is very similar to prior exam. The left lung is clear. No effusion or pneumothorax is seen. IMPRESSION: No significant change in right upper lobe pneumonia when compared with examination from 06/19/2017. Dictated by: Dictated on workstation # [id number]
== END ==
LOC: RAD 11:31
PROVIDERS: ATTEND Family Medicine
DX: J18.1 Lobar pneumonia, unspecified organism (principal)
CPT/HCPCS: 71046

== ENCOUNTER → 2017-06-29 | Outpatient (CLI) | payer MEDICARE ==
[2017-06-29 07:23] LABS: BILIRUBIN,URINE NEGATIVE (NEGATIVE); CLARITY,URINE CLEAR; COLOR,URINE YELLOW; GLUCOSE, URINE (UA) 3+ (NEGATIVE); KETONES,URINE NEGATIVE (NEGATIVE); LEUKOCYTE ESTERASE ,URINE NEGATIVE (NEGATIVE); NITRITE,URINE NEGATIVE (NEGATIVE); PH,URINE 8 (5-9); PROTEIN,URINE 3+ (NEGATIVE); UROBILINOGEN,URINE NORMAL (NORMAL)
[2017-06-29 07:32] LABS: BACTERIA,URINE NEGATIVE /HPF; RBC,URINE 0-2 /HPF
== END ==
LOC: LAB 07:12
PROVIDERS: ATTEND Family Medicine
DX: R35.0 Frequency of micturition (principal)
CPT/HCPCS: 81000

== ENCOUNTER → 2017-07-17 | Outpatient (CLI) | payer MEDICARE ==
[2017-07-17 13:15] LABS: BASOPHILS % (AUTO) 0 % (0-10); EOSINOPHILS % (AUTO) 1 % (0-10); HEMATOCRIT 31 % (40-54); HEMOGLOBIN 9.5 G/DL (13.3-17.7); LYMPHOCYTES # (AUTO) 0.5 X 10^3 (1.0-4.0); LYMPHOCYTES % (AUTO) 13 % (12-44); MEAN CORPUSCULAR HEMOGLOBIN 26 PG (25-34); MEAN CORPUSCULAR HGB CONC 31 G/DL (32-36); MEAN CORPUSCULAR VOLUME 83 FL (80-99); MEAN PLATELET VOLUME 8.3 FL (7.4-10.4); MONOCYTES # (AUTO) 0.3 X 10^3 (0.0-1.0); MONOCYTES % (AUTO) 8 % (0-12); NEUTROPHILS # (AUTO) 3.1 X 10^3 (1.8-7.8); NEUTROPHILS % (AUTO) 78 % (42-75); PLATELET COUNT 242 10^3/uL (130-400); RED BLOOD COUNT 3.66 10^6/uL (4.35-5.85); RED CELL DISTRIBUTION WIDTH 16.2 % (10.0-14.5)
[2017-07-17 13:33] LABS: ALBUMIN 3.7 GM/DL (3.2-4.5); BILIRUBIN,TOTAL 0.6 MG/DL (0.1-1.0); CALCIUM 10.5 MG/DL (8.5-10.1); CREATININE SERUM 7.03 MG/DL (0.60-1.30); POTASSIUM 3.6 MMOL/L (3.6-5.0); TOTAL PROTEIN 7.5 GM/DL (6.4-8.2)
== END ==
LOC: LAB 12:50
PROVIDERS: ATTEND Family Medicine
DX: R63.4 Abnormal weight loss (principal); R53.83 Other fatigue; R06.02 Shortness of breath; Z94.4 Liver transplant status
CPT/HCPCS: 36415; 80053; 83880; 84443; 85025

== ENCOUNTER → 2017-07-18 | Outpatient (CLI) | payer MEDICARE ==
--- NOTE | 2017-07-18 15:33 | Diagnostic Imaging Report ---
PROCEDURE: CT chest without contrast. TECHNIQUE: Multiple contiguous axial images were obtained through the chest without the use of intravenous contrast. INDICATION: Pneumonia. COMPARISON: Exam is compared with chest radiograph performed July 2016, 06/28/2017 and 06/19/2017. FINDINGS: On the two recent exams, there was a persistent right upper lobe infiltrate compatible with pneumonia. This is redemonstrated at this CT and when the differing modality is taken into account, it is likely not substantially changed from the more recent exam of June 28 and probably improved from June 19. There were no findings of an abscess. There is a tiny amount of pleural fluid bilaterally without findings of loculation or empyema. There is no pneumothorax. There is no findings of hilar or mediastinal lymphadenopathy. Left lung is clear. No acute chest wall abnormality. IMPRESSION: Findings of right upper lobe pneumonia similar when correlated with recent radiograph improved from June 19. Small pleural effusions without loculation. No findings of pulmonary abscess or lymphadenopathy. Dictated by: Dictated on workstation # [id number]
== END ==
LOC: RAD 14:36
PROVIDERS: ATTEND Family Medicine
DX: J18.1 Lobar pneumonia, unspecified organism (principal); J90 Pleural effusion, not elsewhere classified; R63.4 Abnormal weight loss
CPT/HCPCS: 71250

== ENCOUNTER 2017-07-23 19:29 | Emergency (ER) | payer MEDICARE ==
[~2017-07-23] VITALS: Ht 188 cm; Wt 99.8 kg
--- OUTSIDE RECORDS SUMMARY | 2017-07-23 19:34 | XMS REPORT | Continuity of Care Document ---
Author Author [facility] Organization [facility] Address Unknown Phone Unavailable Care Team Providers Care Laborer Salvage Name Role Phone [employer] Unavailable Unavailable Problems Medications Allergies, Adverse Reactions, Alerts Immunizations Results Vital Signs Encounters Location Location Details Encounter Type Encounter Number Reason For Visit Attending Provider ADM Date DC Date Status Source SPECIMEN [id number] NIDHI MCCORD 01/16/2017 01/16/2017 Active [facility] OP SURGERY [id number] JUAN MANE 01/26/20172016 Active [facility] SPECIMEN [id number] NIDHI MCCORD 03/20/2017 03/20/2017 Active [facility] OUTPATIENT [id number] ELSA LE 05/14/2017 05/14/2017 Active [facility] O Active [facility] OP SURGERY [id number] KARLY DAVALOS Active [facility] Procedures Plan of Care Social History Assessment and Plan Family History Advance Directives Functional Status
--- OUTSIDE RECORDS SUMMARY | 2017-07-23 19:35 | XMS REPORT | Clinical Summary ---
Author Author [facility] Organization [facility] Address Unknown Phone Unavailable Care Team Providers Care Microfilm Mounter Name Role Phone Regan Brock MD Unavailable Prerna Gray APRN Unavailable Micah Pizano MD Unavailable Rudy Almendarez MD Unavailable Unavailable Yamile Rodriguez PhD Unavailable Arpan Blakely MD Unavailable Lida Yang Unavailable Doctor, Miscellaneous Unavailable Unavailable Josy Sampson MD Unavailable Guille Han MD Unavailable Miranda Gomez SUPERINTENDENT JOB Unavailable Unavailable Rehana Arellano RN Unavailable Unavailable Hetal Mark MD Unavailable Luigi Callahan MD Unavailable Unavailable Bridget Yip MD Unavailable Harini Perez SUPERINTENDENT JOB Unavailable Unavailable Monalisa Cardoza SUPERINTENDENT JOB Unavailable Rah Franks MD Unavailable Mitul Rai MD Unavailable Monalisa Gtz SUPERINTENDENT JOB Unavailable Fabiana Rodriguez MD Unavailable Jared Adam MD Unavailable Thierry Garduno MD Unavailable Regan Gamble MD Unavailable Laly Ceja MD Unavailable Unavailable Faith Fields MD Unavailable Samantha Pruitt MD Unavailable Unavailable Андрей Griffin MD Unavailable Adam Paz MD Unavailable Jennie Bill MD Unavailable Delmy Rodriguez MD Unavailable Unavailable Zo FryN Unavailable Unavailable Kev Peters RN Unavailable Unavailable Zoila Peres Unavailable Unavailable Johnny Archer MD Unavailable Mike Anderson Unavailable Unavailable Elizabeth Goetz Unavailable Unavailable Wilma Masterson Unavailable Unavailable Minerva Lima Unavailable Unavailable Elva Ceja RN Unavailable Unavailable Anthony Newman RN Unavailable Unavailable Wilma Mckeon Unavailable Unavailable Jayla Wise Unavailable Unavailable Enoch Hawkins RN 2 Unavailable Daysi Pretty MA Unavailable Unavailable Fortino Hamm MD Unavailable Farhad Silva APRN Unavailable Tonia David MD Unavailable Unavailable Josué Arellano MD Unavailable Nancy Garner MD Unavailable Isi Gunderson RN Unavailable Unavailable Eva Rothman MA Unavailable Unavailable Tracey Alfaro Unavailable Unavailable Chaka High MD Unavailable Unavailable Pricilla Rodriguez Unavailable Unavailable Thea Serrano RN Unavailable Unavailable Aurelio Ortega MD Unavailable Denis Tavares MD Unavailable Faizan Lin DO PCP Source Comments Some departments are not documenting in the electronic medical record. If you do not see the information that you expected, contact Release of Information in the Health Information Management department at [phone] for further assistance in locating additional records.[facility] Allergies Active Allergy Reactions Severity Noted Date Comments Adhesive BLISTERS High 01/06/2013 Skin tears Current Medications Prescription Sig. Disp. Refills Start End Date Status Date calcium carbonate Take 1,250 mg by mouth Active (OS-RANJIT) 1250 mg tablet daily. doxazosin (CARDURA) 2 mg Take 1 Tab by mouth 30 Tab 0 06/03/19 Active tablet daily. 16 aspirin 81 mg chewable Take 1 Tab by mouth 30 Tab 5 07/26/19 Active tablet daily. 16 amLODIPine (NORVASC) 10 TAKE ONE TABLET BY MOUTH 30 Tab 10 04/10/20 Active mg tablet DAILY 16 tamsulosin (FLOMAX) 0.4 TAKE ONE CAPSULE BY MOUTH 30 Cap 11 05/04/20 Active mg capsule DAILY AFTER BREAKFAST 16 atorvastatin (LIPITOR) 10 1 Tab daily. 90 Tab 3 06/27/19 Active mg tablet 17 traMADol (ULTRAM) 50 mg Take 1 Tab by mouth every 6 Tab 0 07/07/19 Active tablet 8 hours as needed for 17 Pain. zinc sulfate 220 mg (50 Take 220 mg by mouth Active mg elemental zinc) daily. capsule pantoprazole DR TAKE ONE TABLET BY MOUTH 30 tablet 5 03/13/20 Active (PROTONIX) 40 mg tablet DAILY 17 tacrolimus (PROGRAF) 1 mg Take 1 capsule by mouth 60 capsule 5 Active capsule twice daily. 17 everolimus Take 4 tablets by mouth 240 tablet 11 05/03/20 Active (immunosuppressive) twice daily. 17 (ZORTRESS) 0.5 mg tablet cefdinir (OMNICEF) 300 mg Take 300 mg by mouth Active capsule every 12 hours. oxybutynin XL (DITROPAN Take 5 mg by mouth daily. Active XL) 5 mg tablet Sevelamer Carbonate Take 3 tablets by mouth 06/28/19 Discontin (RENVELA) 800 mg tab three times daily. 18 ued senna/docusate Take 1 tablet by mouth 10 tablet 0 01/27/20 06/28/19 Discontin (SENOKOT-S) 8.6/50 mg daily. 17 18 ued tablet cephalexin (KEFLEX) 500 Take 1 capsule by mouth 15 capsule 0 01/27/20 06/28/19 Discontin mg capsule three times daily. 17 18 ued cephalexin (KEFLEX) 500 Take 1 capsule by mouth 15 capsule 0 03/29/20 06/28/19 Discontin mg capsule three times daily. 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 Dulcolax suppository. [...] with medication access, 24hr home care or research neuropsychologist placement. -Follow up: Transplant Surgery in 2 [...] 08/02/2012 Overview: 01/06/13: Postop insulin gtt per [place] protocol. 01/07/13: Consult endocrine for DM management. [...] kidney insufficiency 07/25/2012 08/02/2012 Ascites 06/06/2012 08/02/2012 Encounters Date Type Specialty Care Team Description 07/19/2017 Documentation Transplant Surgery Rebeca Tatum MA 07/17/2017 Telephone Transplant Surgery Regan Brock MD Appointment Request (Urgent Appt) 07/12/2017 Telephone Transplant Surgery Regan Brock MD Medication Question 07/05/2017 Telephone Transplant Surgery Kev Peters RN Other ( current admission) 06/26/2017 Telephone Transplant Surgery Gregoria Núñez, KIERSTEN Labs Only 06/18/2017 Office Visit Dermatology Zo Alcantar MD Actinic keratosis (Primary Dx); Immunosuppressed status (HCC); Multiple benign nevi; History of basal cell cancer; History of squamous cell carcinoma 06/06/2017 Orders Only Transplant Surgery Jolie Hernandez Liver replaced by transplant (HCC) 06/04/2017 Orders Only Transplant Surgery Elizabeth Goetz Liver replaced by transplant (HCC) 06/04/2017 Orders Only Transplant Surgery Maria Teresa Isabel Liver replaced by transplant (HCC) 06/01/2017 Orders Only Transplant Surgery Maria Teresa Isabel Liver replaced by transplant (HCC) 06/01/2017 Orders Only Transplant Surgery Zo Fry BSN Liver replaced by transplant (HCC) (Primary Dx) 05/31/2017 Orders Only Dermatology Fabiana Rodriguez MD 05/31/2017 Telephone Dermatology Fabiana Rodriguez MD Provider Discussion About Patient 05/17/2017 Documentation Transplant Surgery Rebeca Tatum MA 05/15/2017 Orders Only Transplant Surgery Zo Fry BSN Colon cancer screening (Primary Dx); Black stools 05/15/2017 Telephone Transplant Surgery Zo Fry BSN Labs Only 05/14/2017 Office Visit Dermatology Chance Mays MD Actinic keratosis (Primary Dx); Multiple benign nevi; Immunosuppressed status (HCC); History of squamous cell carcinoma; History of basal cell cancer; Seborrheic dermatitis; Stasis dermatitis of both legs 05/14/2017 Office Visit Transplant Surgery Regan Brock MD Recurrent pain of right knee (Primary Dx); Hyperglycemia 05/14/2017 Hospital Lab Regan Brock MD Liver transplant status Encounter (HCC) 05/11/2017 Orders Only Transplant Surgery Zo Fry BSN Liver replaced by transplant (HCC) (Primary Dx); Disorder of bone density and structure, unspecified 05/07/2017 Telephone Transplant Surgery Rebeca Tatum MA Patient Reminder Call 05/01/2017 Telephone Transplant Surgery Zo Fry BSN Medication Dose Change 04/24/2017 Office Visit Dermatology Lorenzo Higgins MD History of basal cell cancer (Primary Dx); History of squamous cell carcinoma of skin; Multiple melanocytic nevi; Seborrheic dermatitis; 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 Melanoma Neg Hx Relation Name Status Comments Father Mother Social History Tobacco Use Types Packs/Day Years Used Date Former Smoker 2 30 Quit: 05/28/1988 Smokeless Tobacco: Never Used Tobacco Cessation: Counseling Given: Yes Alcohol Use Drinks/Week oz/Week Comments No None since 2009 Sex Assigned at Date Recorded Not on file Last Filed Vital Signs Vital Sign Reading Time Taken Blood Pressure 136/56 05/14/2017 11:33 AM EXHIBIT DISPLAY REPRESENTATIVE Pulse 74 05/14/2017 11:33 AM EXHIBIT DISPLAY REPRESENTATIVE Temperature 36.3 C (97.3 F) 05/14/2017 11:33 AM EXHIBIT DISPLAY REPRESENTATIVE Respiratory Rate 14 05/14/2017 11:33 AM EXHIBIT DISPLAY REPRESENTATIVE Oxygen Saturation 95% 05/14/2017 11:33 AM EXHIBIT DISPLAY REPRESENTATIVE Inhaled Oxygen - - Concentration Weight 113.4 kg (250 lb) 06/18/2017 2:11 PM EXHIBIT DISPLAY REPRESENTATIVE Height 188 cm (6' 2") 06/18/2017 2:11 PM EXHIBIT DISPLAY REPRESENTATIVE Body Mass Index 32.1 06/18/2017 2:11 PM EXHIBIT DISPLAY REPRESENTATIVE Plan of Treatment Health Maintenance Due Date Last Done Comments PHYSICAL (COMPREHENSIVE) 1947 EXAM PERTUSSIS VACCINE 1953 TETANUS VACCINE 09/29/1959 DILATED EYE EXAM 1960 FOOT EXAM 1960 SHINGLES VACCINE 2002 ABDOMINAL AORTIC ANEURYSM 09/29/2007 SCREENING MICROALBUMIN 07/31/2015 07/30/2014, 10/31/2012, 08/29/2012, Additional history exists PREVNAR/PNEUMOVAX (#2) 02/20/2016 02/19/2015 HBA1C 03/25/2016 09/24/2015, 07/21/2015, 05/18/2014, Additional history exists INFLUENZA VACCINE 12/26/2016 02/19/2015, 02/28/2013 COLORECTAL CANCER 11/04/2020 11/04/2010, 08/05/2010, 07/08/2010 SCREENING Implants Implanted Type Area Game Producer Device Expiration Model / Identifier Date Serial / Lot Knee Results * EVEROLIMUS BLOOD (05/31/2017 8:40 AM) Only the most recent of 2 results within the time period is included. Component Value Ref Range Everolimus 8.6 ng/mL Specimen Performing Laboratory LABDE INTERFACE Narrative Outside Lab Verified by Jolie Hernandez on 06/06/2017. * GGTP (05/31/2017 8:40 AM) Only the most recent of 3 results within the time period is included. Component Value Ref Range GGTP 12 0 - 65 U/L Specimen Performing Laboratory Blood LABDE INTERFACE Narrative Outside Lab Verified by Jolie Hernandez on 06/06/2017. * CBC AND DIFF (05/31/2017 8:40 AM) Only the most recent of 2 results within the time period is included. Component Value Ref Range White Blood Cells 4.8 4.3 - 11.0 10^3/uL RBC 3.53 (L) 4.35 - 5.85 10^6/uL Hemoglobin 10.2 (L) 13.3 - 17.7 G/DL Hematocrit 32 (L) 40 - 54 % MCV 91 80 - 99 FL MCH 29 25 - 34 PG MCHC 32 32 - 36 G/DL RDW 14.6 (H) 10.0 - 14.5 % Platelet Count 197 130 - 400 10^3/uL Neutrophils 73 42 - 75 % Lymphocytes 17 12 - 44 % Monocytes 9 0 - 12 % Eosinophil 1 0 - 10 % Basophil 0 0 - 10 % Absolute Neutrophil Count 3.5 1.8 - 7.8 X10^3/uL Absolute Lymph Count 0.8 (L) 1.0 - 4.0 x10^3/uL Absolute Monocyte Count 0.4 0.0 - 1.0 x10^3/uL Absolute Eosinophil Count 0.0 0.0 - 0.3 10^3/uL Absolute Basophil Count 0.0 0.0 - 0.1 10^3/uL Specimen Performing Laboratory Blood LABDE INTERFACE Narrative Outside Lab Verified by Maria Teresa Isabel on 06/01/2017. * PHOSPHORUS (05/31/2017 8:40 AM) Only the most recent of 2 results within the time period is included. Component Value Ref Range Phosphorus 5.2 (H) 2.3 - 4.7 H Specimen Performing Laboratory Blood LABDE INTERFACE Narrative Outside Lab Verified by Maria Teresa Isabel on 06/01/2017. * MAGNESIUM (05/31/2017 8:40 AM) Only the most recent of 2 results within the time period is included. Component Value Ref Range Magnesium 2.1 1.8 - 2.4 MG/DL Specimen Performing Laboratory Blood LABDE INTERFACE Narrative Outside Lab Verified by Maria Teresa Isabel on 06/01/2017. * COMPREHENSIVE METABOLIC PANEL (05/31/2017 8:40 AM) Only the most recent of 2 results within the time period is included. Component Value Ref Range Sodium 142 135 - 145 MMOL/L Potassium 3.7 3.6 - 5.0 MMOL/L Chloride 97 (L) 98 - 107 MMOL/L CO2 27 21 - 32 MMOL/L Anion Gap 18 (H) 5 - 14 MMOL/L Blood Urea Nitrogen 37 (H) 7 - 18 MG/DL Creatinine 8.88 (H) 0.60 - 1.30 MG/DL eGFR Non 6 mL/min/1.73 M2 Glucose 130 (H) 70 - 105 mg/dL Calcium 10.7 (H) 8.5 - 10.1 mg/dL Total Bilirubin 0.6 0.1 - 1.0 MG/DL Alk Phosphatase 70 40 - 136 U/L AST (SGOT) 10 5 - 34 U/L ALT (SGPT) 12 0 - 55 U/L Total Protein 8.1 6.4 - 8.2 GM/DL Albumin 4.2 3.2 - 4.5 GM/DL Specimen Performing Laboratory Blood LABDE INTERFACE Narrative Outside Lab Verified by Maria Teresa Isabel on 06/01/2017. * HEPATITIS C AB (05/14/2017 10:52 AM) Component Value Ref Range Anti HCV NEG Specimen Performing Laboratory Blood MAIN LAB [address] [place] [id number] * HEPATITIS B CORE AB TOT (IGG+IGM) (05/14/2017 10:52 AM) Component Value Ref Range Anti HBc Total NEG Specimen Performing Laboratory Blood MAIN LAB [address] [place] [id number] * HEPATITIS B SURFACE AG (05/14/2017 10:52 AM) Component Value Ref Range HBsAg NEG Specimen Performing Laboratory Blood MAIN LAB [address] [place] [id number] * HEPATITIS B SURFACE AB (05/14/2017 10:52 AM) Component Value Ref Range Anti HBs <2.5 mIU/ml Comment: Hepatitis B Surface Antibody Reference Ranges >12.0 Positive 8.0-12.0 Equivocal <8.0 Negative Specimen Performing Laboratory Blood MAIN LAB [address] [place] [address] * TACROLIMUS LEVEL(FK506) (05/14/2017 10:52 AM) Component Value Ref Range Tacrolimus 7.7 2 - 15 NG/ML Comment: Target concentrations vary by type of transplant, patient response, concomitant immunosuppression and post-transplant time interval. Test was performed on whole blood using GeliyooS reagent and a [employer] [place] AU analyzer. Specimen Performing Laboratory Blood MAIN LAB [address] [place] [address] * 25-OH VITAMIN D (D2 + D3) (05/14/2017 10:52 AM) Component Value Ref Range Vitamin D(25-OH)Total 41.9 30 - 80 NG/ML Specimen Performing Laboratory Blood MAIN LAB [address] [place] [address] * LIPID PROFILE (05/14/2017 10:52 AM) Component Value Ref Range Cholesterol 146 <200 MG/DL Triglycerides 185 (H) <150 MG/DL HDL 39 (L) >40 MG/DL LDL 74 <100 MG/DL VLDL 37 MG/DL Non HDL Cholesterol 107 MG/DL Comment: Calculated non-HDL Cholesterol (non-HDL-C) indirectly measures LDL-C, Lp(a), IDL-C, and VLDL-C. It is a surrogate marker for Apoprotein B. Goal should be less than 130 mg/dL. Specimen Performing Laboratory Blood MAIN LAB [address] [place] [address] from Last 3 Months
--- OUTSIDE RECORDS SUMMARY | 2017-07-23 19:36 | XMS REPORT | Encounter Summary ---
Author Author [facility] Organization [facility] Address Unknown Phone Unavailable Care Team Providers Care Gas Engine Repairer Name Role Phone Regan Brock MD Unavailable Prerna Gray APRN Unavailable Micah Pizano MD Unavailable Rudy Almendarez MD Unavailable Unavailable Yamile Rodriguez PhD Unavailable Arpan Blakely MD Unavailable Lida Yang Unavailable Doctor, Miscellaneous Unavailable Unavailable Josy Sampson MD Unavailable Guille Han MD Unavailable Miranda Gomez CITY LIBRARY DIRECTOR Unavailable Unavailable Rehana Arellano RN Unavailable Unavailable Hetal Mark MD Unavailable Luigi Callahan MD Unavailable Unavailable Bridget Yip MD Unavailable Harini Perez CITY LIBRARY DIRECTOR Unavailable Unavailable Monalisa Cardoza CITY LIBRARY DIRECTOR Unavailable Rah Franks MD Unavailable Mitul Rai MD Unavailable Monalisa Gtz CITY LIBRARY DIRECTOR Unavailable Fabiana Rodriguez MD Unavailable Jared Adam MD Unavailable Thierry Garduno MD Unavailable Regan Gamble MD Unavailable Laly Ceja MD Unavailable Unavailable Faith Fields MD Unavailable Samantha Pruitt MD Unavailable Unavailable Андрей Griffin MD Unavailable Adam Paz MD Unavailable Jennie Bill MD Unavailable Delmy Rodriguez MD Unavailable Unavailable Zo Fry BSN Unavailable Unavailable Kev Peters RN Unavailable Unavailable [...] Unavailable Fortino Hamm MD Unavailable Farhad Silva CITY LIBRARY DIRECTOR Unavailable Tonia David MD Unavailable Unavailable Josué Arellano MD Unavailable Nancy Garner MD Unavailable Isi Gunderson RN Unavailable Unavailable Eva Rothman MA Unavailable Unavailable Tracey Alfaro Unavailable Unavailable Chaka High MD Unavailable Unavailable Pricilla Rodriguez Unavailable Unavailable Thea Serrano RN Unavailable Unavailable Aurelio Ortega MD Unavailable Denis Tavares MD Unavailable Faizan Lin DO PCP Encounter Details Date Type Department Care Team Description 07/19/2017 Documentation Center Rebeca Baca MA Transplantation-Liver Transplant Hep [address] [facility] [place] [address] Social History Tobacco Use Types Packs/Day Years Used Date Former Smoker 2 30 Quit: 05/28/1988 Smokeless Tobacco: Never Used Alcohol Use Drinks/Week oz/Week Comments No None since 2009 Sex Assigned at Date Recorded Not on file as of this encounter Functional Status Functional Status Response Date of Assessment Does the patient have a hearing impairment: No 05/14/2017 Does the patient have a visual impairment: No 05/14/2017 Does the patient have impaired ambulation: No 05/14/2017 Does the patient have an activity of daily living No 05/14/2017 (ADL) impairment: Does the patient have an instrumental activity of No 05/14/2017 daily living (IADL) impairment: Cognitive Status Response Date of Assessment Does the patient have a cognitive impairment: No 05/14/2017 as of this encounter Progress Notes * Rebeca Tatum MA - 07/19/2017 7:28 AM MILITARY COOK Request for most recent OV note, labs, and procedure reports faxed to Dr. Lin's office f)[phone]. in this encounter Plan of Treatment Not on fileas of this encounter Visit Diagnoses Not on filein this encounter
--- OUTSIDE RECORDS SUMMARY | 2017-07-23 19:36 | XMS REPORT | Encounter Summary ---
Author Author [facility] Organization [facility] Address Unknown Phone Unavailable Care Team Providers Care Tub Washer Name Role Phone Regan Brock MD Unavailable Prerna Gray APRN Unavailable Micah Pizano MD Unavailable Rudy Almendarez MD Unavailable Unavailable Yamile Rodriguez PhD Unavailable Arpan Blakely MD Unavailable Lida Yang Unavailable Doctor, Miscellaneous Unavailable Unavailable Josy Sampson MD Unavailable Guille Han MD Unavailable Miranda Gomez STUMPER FELLER Unavailable Unavailable Rehana Arellano RN Unavailable Unavailable Hetal Mark MD Unavailable Luigi Callahan MD Unavailable Unavailable Bridget Yip MD Unavailable Harini Perez STUMPER FELLER Unavailable Unavailable Monalisa Cardoza STUMPER FELLER Unavailable Rah Franks MD Unavailable Mitul Rai MD Unavailable Monalisa Gtz STUMPER FELLER Unavailable Fabiana Rodriguez MD Unavailable Jared Adam [...] Unavailable Fortino Hamm MD Unavailable Farhad Silva STUMPER FELLER Unavailable Tonia David MD Unavailable Unavailable Josué Arellano MD Unavailable Nancy Garner MD Unavailable Isi Gunderson RN Unavailable Unavailable Eva Rothman MA Unavailable Unavailable Tracey Alfaro Unavailable Unavailable Chaka High MD Unavailable Unavailable Pricilla Rodriguez Unavailable Unavailable Thea Serrano RN Unavailable Unavailable Aurelio Ortega MD Unavailable Denis Tavares MD Unavailable Faizan Lin DO PCP Reason for Visit * Reason Comments Other current admission Encounter Details Date Type Department Care Team Description 07/05/2017 Telephone Center for Kev Peters, RN Other (current admission) Transplantation-Liver Transplant Hep [address] [facility] [address] Social History Tobacco Use Types Packs/Day Years [...] impairment: No 05/14/2017 as of this encounter Miscellaneous Notes * Telephone Encounter - Rebeca Tatum MA - 07/06/2017 11:35 AM HEMODIALYSIS RN Request for current hospitalization records faxed to HIM at [facility] R)[phone]. * Telephone Encounter - Kev Peters RN - 07/05/2017 3:52 PM HEMODIALYSIS RN Pt called reporting he is currently admitted at [facility] in [place], [place]. Pt reports he is currently admitted for a PNA and "urinary issues". in this encounter Plan of Treatment Not on fileas of this encounter Visit Diagnoses Not on filein this encounter
--- OUTSIDE RECORDS SUMMARY | 2017-07-23 19:36 | XMS REPORT | Encounter Summary ---
Author Author [facility] Organization [facility] Address Unknown Phone Unavailable Care Team Providers Care Irrigator Sprinkling System Name Role Phone Regan Brock MD Unavailable Prerna Gray APRN Unavailable Micah Pizano MD Unavailable Rudy Almendarez MD Unavailable Unavailable Yamile Rodriguez PhD Unavailable Arpan Blakely MD Unavailable Lida Ynag Unavailable Doctor, Miscellaneous Unavailable Unavailable Josy Sampson MD Unavailable Guille Han MD Unavailable Miranda Gomez MARKETING PROPOSAL SPECIALIST Unavailable Unavailable Rehana Arellano RN Unavailable Unavailable Hetal Mark MD Unavailable Luigi Callahan MD Unavailable Unavailable Bridget Yip MD Unavailable Harini Perez MARKETING PROPOSAL SPECIALIST Unavailable Unavailable Monalisa Cardoza MARKETING PROPOSAL SPECIALIST Unavailable Rah Franks MD Unavailable Mitul Rai MD Unavailable Monalisa Gtz MARKETING PROPOSAL SPECIALIST Unavailable Fabiana Rodriguez MD Unavailable Jared Adam [...] Unavailable Fortino Hamm MD Unavailable Farhad Silva MARKETING PROPOSAL SPECIALIST Unavailable Tonia David MD Unavailable Unavailable Josué Arellano MD Unavailable Nancy Garner MD Unavailable Isi Gunderson RN Unavailable Unavailable Eva Rothman MA Unavailable Unavailable Tracey Alfaro Unavailable Unavailable Chaka High MD Unavailable Unavailable Pricilla Rodriguez Unavailable Unavailable Thea Serrano RN Unavailable Unavailable Aurelio Ortega MD Unavailable Denis Tavares MD Unavailable Faizan Lin DO PCP Encounter Details Date Type Department Care Team Description 06/06/2017 Orders Only [facility] Liver replaced by Transplantation-Liver transplant (HCC) Transplant Hep [address] [facility] [place] [address] Social History Tobacco Use Types Packs/Day Years [...] impairment: No 05/14/2017 as of this encounter Plan of Treatment Not on fileas of this encounter Results * EVEROLIMUS BLOOD (05/31/2017 8:40 AM) Component Value Ref Range Everolimus 8.6 ng/mL Specimen Performing Laboratory LABDE INTERFACE Narrative Outside Lab Verified by Jolie Hernandez on 06/06/2017. * GGTP (05/31/2017 8:40 AM) Component Value Ref Range GGTP 12 0 - 65 U/L Specimen Performing Laboratory Blood LABDE INTERFACE Narrative Outside Lab Verified by Jolie Hernandez on 06/06/2017. in this encounter Visit Diagnoses Diagnosis Liver replaced by transplant (HCC) Liver replaced by transplant
--- OUTSIDE RECORDS SUMMARY | 2017-07-23 19:36 | XMS REPORT | Encounter Summary ---
Author Author [facility] Organization [facility] Address Unknown Phone Unavailable Care Team Providers Care Back Closer Name Role Phone Regan Brock MD Unavailable Prerna Gray APRN Unavailable Micah Pizano MD Unavailable Rudy Almendarez MD Unavailable Unavailable Yamile Rodriguez PhD Unavailable Arpan Blakely MD Unavailable Lida Yang Unavailable Doctor, Miscellaneous Unavailable Unavailable Josy Sampson MD Unavailable Guille Han MD Unavailable Miranda Gomez HYDROTEL OPERATOR Unavailable Unavailable Rehana Arellano RN Unavailable Unavailable Hetal Mark MD Unavailable Luigi Callahan MD Unavailable Unavailable Bridget Yip MD Unavailable Harini Perez HYDROTEL OPERATOR Unavailable Unavailable Monalisa Cardoza HYDROTEL OPERATOR Unavailable Rah Franks MD Unavailable Mitul Rai MD Unavailable Monalisa Gtz HYDROTEL OPERATOR Unavailable Fabiana Rodriguez MD Unavailable Jared Adam [...] Unavailable Fortino Hamm MD Unavailable Farhad Silva HYDROTEL OPERATOR Unavailable Tonia David MD Unavailable Unavailable Josué Arellano MD Unavailable Nancy Garner MD Unavailable Isi Gunderson RN Unavailable Unavailable Eva Rothman MA Unavailable Unavailable Tracey Alfaro Unavailable Unavailable Chaka High MD Unavailable Unavailable Pricilla Rodriguez Unavailable Unavailable Thea Serrano RN Unavailable Unavailable Aurelio Ortega MD Unavailable Denis Tavares MD Unavailable Faizan Lin DO PCP Encounter Details Date Type Department Care Team Description 06/04/2017 Orders Only [facility] for [facility] 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 in this encounter Visit Diagnoses Diagnosis Liver replaced by transplant (HCC) Liver replaced by transplant
--- OUTSIDE RECORDS SUMMARY | 2017-07-23 19:36 | XMS REPORT | Encounter Summary ---
Author Author [facility] Organization [facility] Address Unknown Phone Unavailable Care Team Providers Care Welding Machine Operator Arc Name Role Phone Regan Brock MD Unavailable Prerna Gray APRN Unavailable Micah Pizano MD Unavailable Rudy Almendarez MD Unavailable Unavailable Yamile Rodriguez PhD Unavailable Arpan Blakely MD Unavailable Lida Yang Unavailable Doctor, Miscellaneous Unavailable Unavailable Josy Sampson MD Unavailable Guille Han MD Unavailable Miranda Gomez ELIGIBILITY ANALYST Unavailable Unavailable Rehana Arellano RN Unavailable Unavailable Hetal Mark MD Unavailable Luigi Callahan MD Unavailable Unavailable Bridget Yip MD Unavailable Harini Perez ELIGIBILITY ANALYST Unavailable Unavailable Monalisa Cardoza ELIGIBILITY ANALYST Unavailable Rah Franks MD Unavailable Mitul Rai MD Unavailable Monalisa Gtz ELIGIBILITY ANALYST Unavailable Fabiana Rodriguez MD Unavailable Jared Adam [...] Unavailable Fortino Hamm MD Unavailable Farhad Silva ELIGIBILITY ANALYST Unavailable Tonia David MD Unavailable Unavailable Josué Arellano MD Unavailable Nancy Garner MD Unavailable Isi Gunderson RN Unavailable Unavailable Eva Rothman MA Unavailable Unavailable Tracey Alfaro Unavailable Unavailable Chaka High MD Unavailable Unavailable Pricilla Rodriguez Unavailable Unavailable Thea Serrano RN Unavailable Unavailable Aurelio Ortega MD Unavailable Denis Tavares MD Unavailable Faizan Lin DO PCP Encounter Details Date Type Department Care Team Description 06/01/2017 Orders Only [facility] for [facility] 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 * MAGNESIUM (05/31/2017 8:40 AM) Component Value Ref Range Magnesium 2.1 1.8 - 2.4 MG/DL Specimen Performing Laboratory Blood LABDE INTERFACE Narrative Outside Lab Verified by Maria Teresa Isabel on 06/01/2017. * COMPREHENSIVE METABOLIC PANEL (05/31/2017 8:40 AM) Component Value Ref Range Sodium 142 135 [...]
--- OUTSIDE RECORDS SUMMARY | 2017-07-23 19:36 | XMS REPORT | Encounter Summary ---
Author Author [facility] Organization [facility] Address Unknown Phone Unavailable Care Team Providers Care Logging Shovel Operator Name Role Phone Regan Brock MD Unavailable Prerna Gray APRN Unavailable Micah Pizano MD Unavailable Rudy Almendarez MD Unavailable Unavailable Yamile Rodriguez PhD Unavailable Arpan Blakely MD Unavailable Lida Yang Unavailable Doctor, Miscellaneous Unavailable Unavailable Josy Sampson MD Unavailable Guille Han MD Unavailable Miranda Gomez APPLICATION DEFENSE MANAGER Unavailable Unavailable Rehana Arellano RN Unavailable Unavailable Hetal Mark MD Unavailable Luigi Callahan MD Unavailable Unavailable Bridget Yip MD Unavailable Harini Perez APPLICATION DEFENSE MANAGER Unavailable Unavailable Monalisa Cardoza APPLICATION DEFENSE MANAGER Unavailable Rah Franks MD Unavailable Mitul Rai MD Unavailable Monalisa Gtz APPLICATION DEFENSE MANAGER Unavailable Fabiana Rodriguez MD Unavailable Jared Adam [...] Unavailable Unavailable Anthony Newman RN Unavailable Unavailable MikeWilma stoddard Unavailable Unavailable Jayla Wise Unavailable Unavailable Enoch Hawkins RN 2 Unavailable Daysi Pretty MA Unavailable Unavailable Fortino Hamm MD Unavailable Farhad Silva APPLICATION DEFENSE MANAGER Unavailable Tonia David MD Unavailable Unavailable Josué [...] Team Description 06/04/2017 Orders Only [facility] for [facility] 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 in this encounter Visit Diagnoses Diagnosis Liver replaced by transplant (HCC) Liver replaced by transplant
--- OUTSIDE RECORDS SUMMARY | 2017-07-23 19:36 | XMS REPORT | Encounter Summary ---
Author Author [facility] Organization [facility] Address Unknown Phone Unavailable Care Team Providers Care Cargo Tank Mechanic Name Role Phone Regan Brock MD Unavailable Prerna Gray APRN Unavailable Micah Pizano MD Unavailable Rudy Almendarez MD Unavailable Unavailable Yamile Rodriguez PhD Unavailable Arpan Blakely MD Unavailable Lida Yang Unavailable Doctor, Miscellaneous Unavailable Unavailable Josy Sampson MD Unavailable Guille Han MD Unavailable Miranda Gomez SCORE CALLER Unavailable Unavailable Rehana Arellano RN Unavailable Unavailable Hetal Mark MD Unavailable Luigi Callahan MD Unavailable Unavailable Bridget Yip MD Unavailable Harini Perez SCORE CALLER Unavailable Unavailable Monalisa Cardoza SCORE CALLER Unavailable Rah Franks MD Unavailable Mitul Rai MD Unavailable Monalisa Gtz SCORE CALLER Unavailable Fabiana Rodriguez MD Unavailable Jared Adam MD Unavailable Thierry Garduno MD Unavailable Regan Gamble MD Unavailable Laly Ceja MD Unavailable Unavailable Faith Fields MD Unavailable Samantha Pruitt MD Unavailable Unavailable Андрей Griffin MD Unavailable Adam Paz MD Unavailable Jennie Bill MD Unavailable Delmy Rodriguez MD Unavailable Unavailable oZ Fry BSN Unavailable Unavailable Kev Peters RN [...] Unavailable Fortino Hamm MD Unavailable Farhad Silva SCORE CALLER Unavailable Tonia David MD Unavailable Unavailable Josué Arellano MD Unavailable Nancy Garner MD Unavailable Isi Gunderson RN Unavailable Unavailable Eva Rothman MA Unavailable Unavailable Tracey Alfaro Unavailable Unavailable Chaka High MD Unavailable Unavailable Pricilla Rodriguez Unavailable Unavailable Thea Serrano RN Unavailable Unavailable Aurelio Ortega MD Unavailable Denis Tavares MD Unavailable Faizan Lin DO PCP Reason for Visit * Reason Comments Skin Problem Encounter Details Date Type Department Care Team Description 06/18/2017 Office Visit [facility] Zo Alcantar MD Actinic keratosis Physicians - Internal [address] (Primary Dx); [place] [address] Immunosuppressed status 4TH FLOOR POD C [phone] (HCC); [address] [facility] Multiple benign nevi; OFFICE BLDG History of basal cell [place], [place] cancer; [phone] History of squamous cell [phone] carcinoma Social History Tobacco Use Types Packs/Day Years Used Date Former Smoker 2 30 Quit: 05/28/1988 Smokeless Tobacco: Never Used Tobacco Cessation: Counseling Given: Yes Alcohol Use Drinks/Week oz/Week Comments No None since 2009 Sex Assigned at Date Recorded Not on file as of this encounter Last Filed Vital Signs Vital Sign Reading Time Taken Blood Pressure - - Pulse - - Temperature - - Respiratory Rate - - Oxygen Saturation - - Inhaled Oxygen - - Concentration Weight 113.4 kg (250 lb) 06/18/2017 2:11 PM EMBEDDED SYSTEMS DESIGNER Height 188 cm (6' 2") 06/18/2017 2:11 PM EMBEDDED SYSTEMS DESIGNER Body Mass Index 32.1 06/18/2017 2:11 PM EMBEDDED SYSTEMS DESIGNER in this encounter Functional Status Functional Status Response [...] as of this encounter Progress Notes * Rah Franks MD - 06/18/2017 2:00 PM EMBEDDED SYSTEMS DESIGNER Formatting of this note may be different from the original. ATTESTATION I personally performed the yeh portions of the E/M visit, discussed case with resident and concur with resident documentation of history, physical exam, assessment, and treatment plan unless otherwise noted. I performed cryotherapy to 28 AKs on the scalp. Staff name: Rah Franks MD Date: 06/18/2017 * Zo Alcantar MD - 06/18/2017 2:00 PM EMBEDDED SYSTEMS DESIGNER Formatting of this note may be different from the original. Date of Service: 06/18/2017 Subjective: Oleg Hendricks is a 76 y.o. male. History of Present Illness Return patient, LV 04/2017 1. 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 H/o multiple squamous cell cancers - R Antitragus. Bx 03-20-17. scheduled Mohs 06-08-2017 - R anterior lateral neck s/p Mohs 03-29-2017 - mid frontal hairline SCC s/p Mohs 03-29-2017 - L superior episcopal at least HAK rebiopsied 12-21-2016 - L Inferior Church s/p Mohs with Dr. Rodriguez - R superior antihelix s/p Mohs with Dr. Rodriguez2016 with Plastics repair- c/b pseudomonas t/w cipro - L mid forehead s/p Mohs with Dr. Rodriguez 2015 - L posterior helix: treated with Mohs at with Dr. Rodriguez 2014 - pt noted it was a very good experience - R medial forehead and R mid upper forehead s/p Mohs 2013 - R shoulder s/p excision 2013 - Vertex scalp s/p Mohs with Harvinder 2014 3. H/o basal cell carcinomas - upcoming R helix Mohs 07/20 -Scalp vertex s/p MOHS 01-26-2017 - Central chest s/p [id number] - R medial cheek with s/p [id number] - R superior mid helix groove s/p Mohs with repair by plastics - R lateral Scalps/p Mohs with plastics closure - lateral neck superficial BCC s/p ED&C 2013 - hand (not sure if right or left), - R ear excised by Gen Surg 2011 - R helix nod BCC on s/p Mohs 2013 4. Actinic keratoses primarily on the scalp, face, neck, arms and hands. - LN2 in the past - not using tretinoin 0.1% ointment - left scalp HAK biopsy - vertex HAK biopsied 09-11-2016 5. Dany derm - using head and shoulders 6. 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 Gastrointestinal: Negative for diarrhea, nausea and vomiting. Skin: Negative for color change, pallor, rash and wound. Objective: amLODIPine (NORVASC) 10 mg tablet TAKE ONE TABLET BY MOUTH DAILY aspirin 81 mg chewable tablet Take 1 Tab by mouth daily. atorvastatin (LIPITOR) 10 mg tablet 1 Tab daily. calcium carbonate (OS-RANJIT) 1250 mg tablet Take 1,250 mg by mouth daily. cephalexin (KEFLEX) 500 mg capsule Take 4 capsules One Hour prior to Mohs procedure on 06/08/2017 cephalexin (KEFLEX) 500 mg capsule Take 1 capsule by mouth three times daily. cephalexin (KEFLEX) 500 mg capsule Take 1 capsule by mouth three times daily. doxazosin (CARDURA) 2 mg tablet Take 1 Tab by mouth daily. everolimus (immunosuppressive) (ZORTRESS) 0.5 mg tablet Take 4 tablets by mouth twice daily. pantoprazole DR (PROTONIX) 40 mg tablet TAKE ONE TABLET BY MOUTH DAILY senna/docusate (SENOKOT-S) 8.6/50 mg tablet Take 1 tablet by mouth daily. Sevelamer Carbonate (RENVELA) 800 mg tab Take 3 tablets by mouth three times daily. tacrolimus (PROGRAF) 1 mg capsule Take 1 capsule by mouth twice daily. tamsulosin (FLOMAX) 0.4 mg capsule TAKE ONE CAPSULE BY MOUTH DAILY AFTER BREAKFAST traMADol (ULTRAM) 50 mg tablet Take 1 Tab by mouth every 8 hours as needed for Pain. zinc sulfate 220 mg (50 mg elemental zinc) capsule Take 220 mg by mouth daily. Vitals: 06/18/17 1411 Weight: 113.4 kg (250 lb) Height: 188 cm (74") Body mass index is 32.1 kg/(m^2). Physical Exam Areas Examined (all normal unless noted below): Head/Face Neck Chest Back R upper ext L upper ext Patient declined FBSE today Pertinent findings include: - Scars at sites of prior NMSCs with no evidence of recurrence - Reticulated hyperpigmented macules distributed in sun-exposed areas of face, arms - Multiple brown and mtz evenly pigmented macules are distributed over the head , neck, arms. All have symmetric similar dermascopic findings with primarily globular and reticular patterns. - 28 erythematous scaly papule(s) are noted on the scalp x 28 lesions Hemorrhagic crust over red papule on R scalp Assessment and Plan: 1. Chronic immunosuppressions/p liver transplant for FELIX cirrhosis - aware of elevated risk 2. Hx of multiple squamous cell cancers, most recent - no evidence of recurrence - 1 upcoming MOhs--> 07/20/2017 - OTC nicotinamide 500 to BID 3. Hx of multiple basal cell carcinomas - no evidence of recurrence 4. Actinic Keratosis: - LN2 x 28 lesions - sunprotection advised 5. 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 Stasis dermatitis - Compression stockings & elevation as much as possible 7. Melanocytic nevi - Will cont to monitor - Counseled on ABCD's of melanoma and given pamphlet on melanoma - Counseled on sunscreen and wide-brimmed hat use - vitamin D3 [phone] U/day in winter - RTC for return to clinic for any new, changing or symptomatic lesions - Encouraged to continue to monitor nevi at home 8. Previous biopsy site of R scalp - if not healed by next visit will plan to biopsy - photo documented in chart RTC: 3 weeks in this encounter Procedure Notes * Zo Alcantar MD - 06/18/2017 2:00 PM EMBEDDED SYSTEMS DESIGNER Associated Order(s): SKIN LESION DESTRUCTION Procedure(s): [place] DESTRUCTION PREMALIGNANT LESION 15/> Pre-Procedure Diagnose(s): Actinic keratosis Liquid Nitrogen Procedure Note Risk and benefits of the above procedure including pain, dyspigmentation, scar, infection, recurrence were discussed with the patient (or legal guardian) in detail, who afterwards decided to proceed with the procedure. Verbal informed consent given Diagnosis: AK Body site: scalp Number of lesions: 28 Cycle duration: 10 sec Number or cycles: 2 Wound care instructions given: Yes Complications: None Tolerated well: Yes Ambulated from room: Yes Duration of procedure: > 5min in this encounter Plan of Treatment Name Priority Associated Diagnoses Order Schedule SKIN LESION DESTRUCTION Routine Actinic keratosis Ordered: 06/18/2017 as of this encounter Visit Diagnoses Diagnosis Actinic keratosis - Primary Immunosuppressed status (HCC) Unspecified disorder of immune mechanism Multiple benign nevi Benign neoplasm of skin, site unspecified History of basal cell cancer Personal history of other malignant neoplasm of skin History of squamous cell carcinoma Personal history of malignant neoplasm of other site
--- OUTSIDE RECORDS SUMMARY | 2017-07-23 19:36 | XMS REPORT | Encounter Summary ---
Author Author [facility] Organization [facility] Address Unknown Phone Unavailable Care Team Providers Care Mall Plant Caretaker Name Role Phone Regan Brock MD Unavailable Prerna Gray APRN Unavailable Micah Pizano MD Unavailable Rudy Almendarez MD Unavailable Unavailable Yamile Rodriguez PhD Unavailable Arpan Blakely MD Unavailable Lida Yang Unavailable Doctor, Miscellaneous Unavailable Unavailable Josy Sampson MD Unavailable Guille Han MD Unavailable Miranda Gomez MAINTENANCE REPRESENTATIVE Unavailable Unavailable Rehana Arellano RN Unavailable Unavailable Hetal Mark MD Unavailable Luigi Callahan MD Unavailable Unavailable Bridget Yip MD Unavailable Harini Perez MAINTENANCE REPRESENTATIVE Unavailable Unavailable Monalisa Cardoza MAINTENANCE REPRESENTATIVE Unavailable Rah Franks MD Unavailable Mitul Rai MD Unavailable Monalisa Gtz MAINTENANCE REPRESENTATIVE Unavailable Fabiana Rodriguez MD Unavailable Jared Adam [...] Anderson Unavailable Unavailable Elizabeth Goetz Unavailable Unavailable Wimla Masterson Unavailable Unavailable Minerva Lima Unavailable Unavailable Elva Ceja RN Unavailable Unavailable Anthony Newman RN Unavailable Unavailable Wilma Mckeon Unavailable Unavailable Jayla Wise Unavailable Unavailable Enoch Hawkins RN 2 Unavailable Daysi Pretty MA Unavailable Unavailable Fortino Hamm MD Unavailable Farhad Silva MAINTENANCE REPRESENTATIVE Unavailable Tonia David MD Unavailable Unavailable Josué Arellano MD Unavailable Nancy Garner MD Unavailable Isi Gunderson RN Unavailable Unavailable Eva Rothman MA Unavailable Unavailable Tracey Alfaro Unavailable Unavailable Chaka High MD Unavailable Unavailable Pricilla Rodriguez Unavailable Unavailable Thea Serrano RN Unavailable Unavailable Aurelio Ortega MD Unavailable Denis Tavares MD Unavailable Faizan Lin DO PCP Reason for Visit * Reason Comments Appointment Request Urgent Appt Encounter Details Date Type Department Care Team Description 07/17/2017 Telephone Center for Regan Brock MD Appointment Request Transplantation-Liver [address] (Urgent Appt) Transplant Hep [id number] [address] [place] [address] [facility] [phone] [place] [address] Social History Tobacco Use Types Packs/Day Years [...] encounter Miscellaneous Notes * Telephone Encounter - Isela Joya - 07/18/2017 1:29 PM CAD LIBRARIAN Called pt scheduled f/u with Boy for July 25, 2017 @ 8:40am. in this encounter Plan of Treatment Not on fileas of this encounter Visit Diagnoses Not on filein this encounter
--- OUTSIDE RECORDS SUMMARY | 2017-07-23 19:36 | XMS REPORT | Encounter Summary ---
Author Author [facility] Organization [facility] Address Unknown Phone Unavailable Care Team Providers Care Occupational Health Nurse Name Role Phone Regan Brock MD Unavailable Prerna Gray APRN Unavailable Micah Pizano MD Unavailable Rudy Almendarez MD Unavailable Unavailable Yamile Rodriguez PhD Unavailable Arpan Blakely MD Unavailable Lida Yang Unavailable Doctor, Miscellaneous Unavailable Unavailable Josy Sampson MD Unavailable Guille Han MD Unavailable Miranda Gomez KILN OPERATOR HELPER Unavailable Unavailable Rehana Arellano RN Unavailable Unavailable Hetal Mark MD Unavailable Luigi Callahan MD Unavailable Unavailable Bridget Yip MD Unavailable Harini Perez KILN OPERATOR HELPER Unavailable Unavailable Monalisa Cardoza KILN OPERATOR HELPER Unavailable Rah Franks MD Unavailable Mitul Rai MD Unavailable Monalisa Gtz KILN OPERATOR HELPER Unavailable Fabiana Rodriguez MD Unavailable Jared Adam [...] Unavailable Fortino Hamm MD Unavailable Farhad Silva KILN OPERATOR HELPER Unavailable Tonia David MD Unavailable Unavailable Josué Arellano MD Unavailable Nancy Garner MD Unavailable Isi Gunderson RN Unavailable Unavailable Eva Rothman MA Unavailable Unavailable Tracey Alfaro Unavailable Unavailable Chaka High MD Unavailable Unavailable Pricilla Rodriguez Unavailable Unavailable Thea Serrano RN Unavailable Unavailable Aurelio Ortega MD Unavailable Denis Tavares MD Unavailable Faizan Lin DO PCP Reason for Visit * Reason Comments Medication Question Encounter Details Date Type Department Care Team Description 07/12/2017 Telephone Center for Regan Brock MD Medication Question Transplantation-Liver [address] Transplant Hep [id number] [address] [place] [address] [facility] [phone] [place] [address] Social History Tobacco Use Types [...] encounter Miscellaneous Notes * Telephone Encounter - Kev Peters RN - 07/12/2017 1:33 PM MIDDLE SCHOOL ART TEACHER Returned call. Gave verbal okay for pt to [facility]. in this encounter Plan of Treatment Not on fileas of this encounter Visit Diagnoses Not on filein this encounter
--- OUTSIDE RECORDS SUMMARY | 2017-07-23 19:36 | XMS REPORT | Encounter Summary ---
Author Author [facility] Organization [facility] Address Unknown Phone Unavailable Care Team Providers Care Environmental Services Lead Name Role Phone Regan Brock MD Unavailable Prerna Gray APRN Unavailable Micah Pizano MD Unavailable Rudy Almendarez MD Unavailable Unavailable Yamile Rodriguez PhD Unavailable Arpan Blakely MD Unavailable Lida Yang Unavailable Doctor, Miscellaneous Unavailable Unavailable Josy Sampson MD Unavailable Guille Han MD Unavailable Miranda Gomez MERCHANDISE FOR RESALE PURCHASING AGENT Unavailable Unavailable Rehana Arellano RN Unavailable Unavailable Hetal Mark MD Unavailable Luigi Callahan MD Unavailable Unavailable Bridget Yip MD Unavailable Harini Perez MERCHANDISE FOR RESALE PURCHASING AGENT Unavailable Unavailable Monalisa Cardoza MERCHANDISE FOR RESALE PURCHASING AGENT Unavailable Rah Franks MD Unavailable Mitul Rai MD Unavailable Monalisa Gtz MERCHANDISE FOR RESALE PURCHASING AGENT Unavailable Fabiana Rodriguez MD Unavailable Jared Adam [...] Unavailable Fortino Hamm MD Unavailable Farhad Silva MERCHANDISE FOR RESALE PURCHASING AGENT Unavailable Tonia David MD Unavailable Unavailable Josué Arellano MD Unavailable Nancy Garner MD Unavailable Isi Gunderson RN Unavailable Unavailable Eva Rothman MA Unavailable Unavailable Tracey Alfaro Unavailable Unavailable Chaka High MD Unavailable Unavailable Pricilla Rodriguez Unavailable Unavailable Thea Serrano RN Unavailable Unavailable Aurelio Ortega MD Unavailable Denis Tavares MD Unavailable Faizan Lin DO PCP Reason for Visit * Reason Comments Labs Only Encounter Details Date Type Department Care Team Description 06/26/2017 Telephone Center for Gregoria Núñze, RN Labs Only Transplantation-Liver Transplant Hep [address] [facility] [place] [address] Social History Tobacco Use Types Packs/Day Years [...] encounter Miscellaneous Notes * Telephone Encounter - Gregoria Núñez RN - 06/26/2017 11:33 AM SKI GUIDE Per Dr. Brock's note, the patient is instructed to repeat labs next week via his . He is instructed to call with any questions. in this encounter Plan of Treatment Not on fileas of this encounter Visit Diagnoses Not on filein this encounter
--- OUTSIDE RECORDS SUMMARY | 2017-07-23 19:37 | XMS REPORT | Encounter Summary ---
Author Author [facility] Organization [facility] Address Unknown Phone Unavailable Care Team Providers Care Sustainability Officer Name Role Phone Regan Brock MD Unavailable Prerna Gray APRN Unavailable Micah Pizano MD Unavailable Rudy Almendarez MD Unavailable Unavailable Yamile Rodriguez PhD Unavailable Arpan Blakely MD Unavailable Lida Yang Unavailable Doctor, Miscellaneous Unavailable Unavailable Josy Sampson MD Unavailable Guille Han MD Unavailable Miranda Gomez PIANO MAKER Unavailable Unavailable Rehana Arellano RN Unavailable Unavailable Hetal Mark MD Unavailable Luigi Callahan MD Unavailable Unavailable Bridget Yip MD Unavailable Harini Perez PIANO MAKER Unavailable Unavailable Monalisa Cardoza PIANO MAKER Unavailable Rah Franks MD Unavailable Mitul Rai MD Unavailable Monalisa Gtz PIANO MAKER Unavailable Fabiana Rodriguez MD Unavailable Jared Adam MD Unavailable Thierry Garduno MD Unavailable Regan Gamble MD Unavailable Laly Cjea MD Unavailable Unavailable Faith Fields MD Unavailable [...] Unavailable Fortino Hamm MD Unavailable Farhad Silva PIANO MAKER Unavailable Tonia David MD Unavailable Unavailable Josué Arellano MD Unavailable Nancy Garner MD Unavailable Isi Gunderson RN Unavailable Unavailable Eva Rothman MA Unavailable Unavailable Tracey Alfaro Unavailable Unavailable Chaka High MD Unavailable Unavailable Pricilla Rodriguez Unavailable Unavailable Thea Serrano RN Unavailable Unavailable Aurelio Ortega MD Unavailable Denis Tavares MD Unavailable Faizan Lin DO PCP Encounter Details Date Type Department Care Team Description 05/31/2017 Orders Only [facility] Fabiana Rodriguez MD Physicians - Internal [address] [facility] Medicine [address] [place] [address] [address] [facility] [phone] OFFICE [facility] [address] Social History Tobacco Use Types Packs/Day Years [...]
--- OUTSIDE RECORDS SUMMARY | 2017-07-23 19:37 | XMS REPORT | Encounter Summary ---
Author Author [facility] Organization [facility] Address Unknown Phone Unavailable Care Team Providers Care Retail Pos Specialist Name Role Phone Maria Victoriajuna carlos Faizan LOPEZ PCP Regan Brock MD Unavailable Prerna Gray APRN Unavailable Micah Pizano MD Unavailable Rudy Almendarez MD Unavailable Unavailable Yamile Rodriguez PhD Unavailable Arpan Blakely MD Unavailable Lida Yang Unavailable Doctor, Miscellaneous Unavailable Unavailable Josy Sampson MD Unavailable Guille Han MD Unavailable Miranda Gomez LOOM MECHANIC Unavailable Unavailable Rehana Arellano RN Unavailable Unavailable Hetal Mark MD Unavailable Luigi Callahan MD Unavailable Unavailable Bridget Yip MD Unavailable Harini Perez LOOM MECHANIC Unavailable Unavailable Monalisa Cardoza LOOM MECHANIC Unavailable Rah Franks MD Unavailable Mitul Rai MD Unavailable Monalisa Gtz LOOM MECHANIC Unavailable Fabiana Rodriguez MD Unavailable Jared Adam [...] Unavailable Fortino Hamm MD Unavailable Farhad Silva LOOM MECHANIC Unavailable Tonia David MD Unavailable Unavailable Josué Arellano MD Unavailable Nancy Garner MD Unavailable Isi Gunderson RN Unavailable Unavailable Eva Rothman MA Unavailable Unavailable Tracey Alfaro Unavailable Unavailable Chaka High MD Unavailable Unavailable Pricilla Rodriguez Unavailable Unavailable Thea Serrano RN Unavailable Unavailable Aurelio Ortega MD Unavailable Denis Tavares MD Unavailable Reason for Visit * Reason Comments Labs Only Encounter Details Date Type Department Care Team Description 05/15/2017 Telephone Center for Zo Fry BSN Labs Only Transplantation-Liver Transplant [facility] [address] [facility] [place] [address] Social History Tobacco Use Types Packs/Day Years [...] encounter Miscellaneous Notes * Telephone Encounter - Zo Fry BSN - 05/15/2017 1:07 PM NUTRITION HELPER Asked if pt took medication prior to labwork on Sunday. He states that he did. Asked that pt repeat labs again next week to get an accurate trough. He v/u in this encounter Plan of Treatment Not on fileas of this encounter Visit Diagnoses Not on filein this encounter
--- OUTSIDE RECORDS SUMMARY | 2017-07-23 19:37 | XMS REPORT | Encounter Summary ---
Author Author [facility] Organization [facility] Address Unknown Phone Unavailable Care Team Providers Care Social Services Assistant Name Role Phone Regan Brock MD Unavailable Prerna Gray APRN Unavailable Micah Pizano MD Unavailable Rudy Almendarez MD Unavailable Unavailable Yamile Rodriguez PhD Unavailable Arpan Blakely MD Unavailable Lida Yang Unavailable Doctor, Miscellaneous Unavailable Unavailable Josy Sampson MD Unavailable Guille Han MD Unavailable Miranda Gomez FIRE SPRINKLER SERVICE TECHNICIAN Unavailable Unavailable Rehana Arellano RN Unavailable Unavailable Hetal Mark MD Unavailable Luigi Callahan MD Unavailable Unavailable Bridget Yip MD Unavailable Harini Perez FIRE SPRINKLER SERVICE TECHNICIAN Unavailable Unavailable Monalisa Cardoza FIRE SPRINKLER SERVICE TECHNICIAN Unavailable Rah Franks MD Unavailable Mitul Rai MD Unavailable Monalisa Gtz FIRE SPRINKLER SERVICE TECHNICIAN Unavailable Fabiana Rodriguez MD Unavailable Jared Adam [...] Unavailable Unavailable Elva Ceja RN Unavailable Unavailable Anthoyn Newman RN Unavailable Unavailable Wilma Mckeon Unavailable Unavailable Jayla Wise Unavailable Unavailable Enoch Hawkins RN 2 Unavailable Daysi Pretty MA Unavailable Unavailable Fortino Hamm MD Unavailable Farhad Silva FIRE SPRINKLER SERVICE TECHNICIAN Unavailable Tonia David MD Unavailable Unavailable Josué Arellano MD Unavailable Nancy Garner MD Unavailable Isi Gunderson RN Unavailable Unavailable Eva Rothman MA Unavailable Unavailable Tracey Alfaro Unavailable Unavailable Chaka High MD Unavailable Unavailable Pricilla Rodriguez Unavailable Unavailable Thea Serrano RN Unavailable Unavailable Aurelio Ortega MD Unavailable Denis Tavares MD Unavailable Faizan Lin DO PCP Encounter Details Date Type Department Care Team Description 05/17/2017 Documentation Center Rebeca Baca MA Transplantation-Liver Transplant Hep [address] [facility] [place] [address] Social History Tobacco Use Types Packs/Day Years [...] Progress Notes * Rebeca Tatum MA - 05/17/2017 12:01 PM COMPUTER VIDEO GAME DESIGNER Dr. Lni's office referred patient to Dr. Garth Hernandez [phone] for EGD/Colon. Patient is scheduled on 06/21/17. * Rebeca Tatum MA - 05/17/2017 12:01 PM COMPUTER VIDEO GAME DESIGNER EGD/Colonoscopy orders faxed to Dr. Lin's office [phone] to set up in his office or locally. in this encounter Plan of Treatment Not on fileas of this encounter Visit Diagnoses Not on filein this encounter
--- OUTSIDE RECORDS SUMMARY | 2017-07-23 19:37 | XMS REPORT | Encounter Summary ---
Author Author [facility] Organization [facility] Address Unknown Phone Unavailable Care Team Providers Care Underwater Photographer Name Role Phone Maria Victoriajuan carlos Faizan LOPEZ PCP Regan Brock MD Unavailable Prerna Gray APRN Unavailable Micah Pizano MD Unavailable Rudy Almendarez MD Unavailable Unavailable Yamile Rodriguez PhD Unavailable Arpan Blakely MD Unavailable Lida Yang Unavailable Doctor, Miscellaneous Unavailable Unavailable Josy Sampson MD Unavailable Guille Han MD Unavailable Miranda Gomez CHEF MANAGER Unavailable Unavailable Rehana Arellano RN Unavailable Unavailable Hetal Mark MD Unavailable Luigi Callahan MD Unavailable Unavailable Bridget Yip MD Unavailable Harini Perez CHEF MANAGER Unavailable Unavailable Monalisa Cardoza CHEF MANAGER Unavailable Rah Franks MD Unavailable Mitul Rai MD Unavailable Monalisa Gtz CHEF MANAGER Unavailable Fabiana Rodriguez MD Unavailable Jared [...] Unavailable Unavailable Anthony Newman RN Unavailable Unavailable Mike, Wilma Unavailable Unavailable WiseJayla sorenson Unavailable Unavailable Enoch Hawkins RN 2 Unavailable Daysi Pretty MA Unavailable Unavailable Fortino Hamm MD Unavailable Farhad Silva CHEF MANAGER Unavailable Tonia David MD Unavailable Unavailable Josué Arellano MD Unavailable Nancy Garner MD Unavailable Isi Gunderson RN Unavailable Unavailable Eva Rothman MA Unavailable Unavailable Tracey Alfaro Unavailable Unavailable Chaka High MD Unavailable Unavailable Pricilla Rodriguez Unavailable Unavailable Thea Serrano RN Unavailable Unavailable Aurelio Ortega MD Unavailable Denis Tavares MD Unavailable Reason for Referral * Consult, Test & Treat Status Reason Specialty Diagnoses / Referred By Referred To Procedures Contact Contact New Request Specialty Diagnoses Regan Brock, Services Colon cancer MD Required screening [address] [facility] [id number] [place] [address] * Consult, Test & Treat Status Reason Specialty Diagnoses / Referred By Referred To Procedures Contact Contact New Request Specialty Diagnoses Regan Brock, Services Black stools Required [address] [facility] [id number] [place] [address] Encounter Details Date Type Department Care Team Description 05/15/2017 Orders Only Center Zo Porras BSN Colon cancer screening Transplantation-Liver (Primary Dx); Transplant Hep Black stools [address] [facility] [place] [address] Social History Tobacco Use Types Packs/Day Years Used Date Former Smoker 2 Quit: 05/28/1988 Smokeless Tobacco: Never Used Alcohol [...] as of this encounter Plan of Treatment Name Priority Associated Diagnoses Order Schedule AMB REFERRAL TO GI LAB FOR PROCEDURE Routine Black stools Ordered: 05/15 AMB REFERRAL TO GI LAB FOR PROCEDURE Routine Colon cancer screening Ordered: 05/15/2017 as of this encounter Visit Diagnoses Diagnosis Colon cancer screening - Primary Special screening for malignant neoplasms, colon Black stools Nonspecific abnormal finding in stool contents
--- OUTSIDE RECORDS SUMMARY | 2017-07-23 19:37 | XMS REPORT | Encounter Summary ---
Author Author [facility] Organization [facility] Address Unknown Phone Unavailable Care Team Providers Care Cabinet And Trim Installer Name Role Phone Regan Brock MD Unavailable Prerna Gray APRN Unavailable Micah Pizano MD Unavailable Rudy Almendarez MD Unavailable Unavailable Yamile Rodriguez PhD Unavailable Arpan Blakely MD Unavailable Lida Yang Unavailable Doctor, Miscellaneous Unavailable Unavailable Josy Sampson MD Unavailable Guille Han MD Unavailable Miranda Gomez SCENIC ARTS SUPERVISOR Unavailable Unavailable Rehana Arellano RN Unavailable Unavailable Hetal Mark MD Unavailable Luigi Callahan MD Unavailable Unavailable Bridget Yip MD Unavailable Harini Perez SCENIC ARTS SUPERVISOR Unavailable Unavailable Monalisa Cardoza SCENIC ARTS SUPERVISOR Unavailable Rah Franks MD Unavailable Mitul Rai MD Unavailable Monalisa Gtz SCENIC ARTS SUPERVISOR Unavailable Fabiana Rodriguez MD Unavailable Jared Adam [...] Unavailable Fortino Hamm MD Unavailable Farhad Silva SCENIC ARTS SUPERVISOR Unavailable Tonia David MD Unavailable Unavailable Josué Arellano MD Unavailable Nancy Garner MD Unavailable Isi Gunderson RN Unavailable Unavailable Eva Rothman MA Unavailable Unavailable Tracey Alfaro Unavailable Unavailable Chaka High MD Unavailable Unavailable Pricilla Rodriguez Unavailable Unavailable Thea Serrano RN Unavailable Unavailable Aurelio Ortega MD Unavailable Denis Tavares MD Unavailable Faizan Lin DO PCP Reason for Visit * Reason Comments Provider Discussion About Patient Encounter Details Date Type Department Care Team Description 05/31/2017 Telephone [facility] Fabiana Rodriguez MD Provider Discussion About Physicians - Internal [address] [place] [address] Patient Medicine [address] [place] [address] [address] [facility] [phone] [place] [address] Social History Tobacco Use Types [...] encounter Miscellaneous Notes * Telephone Encounter - Faviola Huizar RN - 05/31/2017 9:24 AM PUMP SERVICER Pre Op Phone Consultation for mohs surgery with Dr. Rodriguez on 06/08/2017 at 2017 at 7:45 a.m. Diagnosis: SCC in Situ Location: Right Antitragus Bleeding disorder: No Use of blood thinners: Yes, Aspirin 81 mg (patient has been holding-7 days prior to procedure) Pacemaker: No Defibrillator: No History of heart valve replacement: No History of joint replacement: Yes Year: 2014 Does patient require antibiotics prior to procedures: Yes, 2 grams Keflex ordered Are all allergies on file: Yes, Adhesive Are all medications on file: Yes, See List PHOTOS AVAILABLE. PLASTICS CLOSURE WITH DR DAVALOS. Patient will reschedule Sunday HD for Sunday. in this encounter Plan of Treatment Not on fileas of this encounter Visit Diagnoses Not on filein this encounter
--- OUTSIDE RECORDS SUMMARY | 2017-07-23 19:37 | XMS REPORT | Encounter Summary ---
Author Author [facility] Organization [facility] Address Unknown Phone Unavailable Care Team Providers Care Medical Or Surgical Instrument Maker Name Role Phone Maria Victoriajuan carlos Faizan LOPEZ PCP Regan Brock MD Unavailable Prerna Gray APRN Unavailable Micah Pizano MD Unavailable Rudy Almendarez MD Unavailable Unavailable Yamile Rodriguez PhD Unavailable Arpan Blakely MD Unavailable Lida Yang Unavailable Doctor, Miscellaneous Unavailable Unavailable Josy Sampson MD Unavailable Guille Han MD Unavailable Miranda Gomez DISPLAY MECHANIC Unavailable Unavailable Rehana Arellano RN Unavailable Unavailable Hetal Mark MD Unavailable Luigi Callahan MD Unavailable Unavailable Bridget Yip MD Unavailable Harini Perez DISPLAY MECHANIC Unavailable Unavailable Monalisa Cardoza DISPLAY MECHANIC Unavailable Rah Franks MD Unavailable Mitul Rai MD Unavailable Monalisa Gtz DISPLAY MECHANIC Unavailable Fabiana Rodriguez MD Unavailable Jared [...] Unavailable Fortino Hamm MD Unavailable Farhad Silva DISPLAY MECHANIC Unavailable Tonia David MD Unavailable Unavailable Josué Arellano MD Unavailable Nancy Garner MD Unavailable Isi Gunderson RN Unavailable Unavailable Eva Rothman MA Unavailable Unavailable Tracey Alfaro Unavailable Unavailable hCaka High MD Unavailable Unavailable Pricilla Rodriguez Unavailable Unavailable Thea Serrano RN Unavailable Unavailable Aurelio Ortega MD Unavailable Denis Tavares MD Unavailable Reason for Visit * Reason Comments Skin Problem Encounter Details Date Type Department Care Team Description 05/14/2017 Office Visit [facility] Chance Mays MD Actinic keratosis Physicians - Internal [address] [facility] (Primary Dx); [place] [address] Multiple benign nevi; 4TH FLOOR POD C Immunosuppressed status [address] [facility] OFFICE BLDG History of squamous cell [place], [place] carcinoma; [id number] History of basal cell [phone] cancer; Seborrheic dermatitis; Stasis dermatitis of both legs Social History Tobacco Use Types Packs/Day Years [...] - Concentration Weight 113.4 kg (250 lb) 05/14/2017 12:53 PM DOCTOR OF DENTAL MEDICINE Height 188 cm (6' 2") 05/14/2017 12:53 PM DOCTOR OF DENTAL MEDICINE Body Mass Index 32.1 05/14/2017 12:53 PM DOCTOR OF DENTAL MEDICINE in this encounter Functional Status Functional Status [...] impairment: No 05/14/2017 as of this encounter Instructions * Patient Instructions - Chance Mays MD - 05/14/2017 12:45 PM DOCTOR OF DENTAL MEDICINE Actinic Keratoses (AKs) ? AKs are common skin growths. In fact, these growths are so common that the treatment for AKs is one of the most frequent reasons that people see a bottle caser. ? Also known as solar keratoses because they are caused by years of sun exposure ? AKs are considered precancerous. Left untreated, AKs may turn into squamous cell carcinoma. ? AKs develop when UV light damages cells in the skin. Cells damaged by UV light from the sun or indoor tanning cause the skin to become rough and scaly. What do AKs look like? ? Most AKs share common qualities such as being dry, scaly, and rough textured. Not all AKs look the same. ? Some are skin colored and may be easier to feel than see. These AKs often feel like sandpaper, can appear in groups and cover larger areas of skin. ? Others appear as red bumps; thick red scaly patches or growths; or crusted growths varying in color from red to brown to yellowish black. ? Sometimes an AK grows rapidly upward, and you see a growth that that resembles the horn of an animal. This is called a cutaneous horn. ? AKs often seem to disappear for weeks or months and then return. This makes treatment important. Left untreated, the damaged cells can continue to grow and skin cancer may develop. Who gets AKs? ? Fair skinned people have a higher risk of getting AKs ? Also people with one or more of the following: Blonde or red hair; Blue, green or piter eyes; Skin that freckles or lindsay when in the sun; 40 years or older. ? People who have had a lot of sun exposure can develop AKs earlier than age 40. Using a tanning bed or sun lamp also increases your risk. Where do AKs form on the body? ? When AKs develop, they tend to appear on skin that receives the most sun: face , forehead, and scalp, especially a bald scalp; Ears; neck and upper chest; back ; arms and hands; lower legs, especially in women. ? AKs also commonly form on or at the border of the lip. An AK on the lip is known as actinic cheilitis and looks like a scaly patch on a dry, often cracked lip. Treatment ? Cryosurgery/Freezing: This is the most common treatment for AKs. Freezing the AK causes the skin to flake off. New healthy skin forms as the treated area heals. ? Chemotherapy for the skin: 5-fluorouracil is a cancer-fighting cream that you apply to the AK to destroy it. ? Immunotherapy for the skin: Imiquimod cream and ingenol mebutate gel are medications that work with the bodys immune system to help destroy AKs. ? NSAID for the skin: Sodium diclofenac gel is a medication that destroys AKs. ? Photodynamic therapy: This treatment involves applying light-sensitive solution to the skin. When the skin with the solution is exposed to a special light, this destroys the AK. ? Chemical Peeling: A chemical solution is applied to the skin in order to peel away the AKs. ? Laser skin resurfacing: A laser is used to remove the AKs. ? Curretage: This treatment involves the bottle caser carefully removing a visible AK with an instrument called a curette. ? No single therapy works on all AKs or in all individuals. How do I prevent AKs? ? Protecting your skin from the sun and other sources of UV light such as tanning beds is important. This helps prevent new AKs and reduces the risk of AKs returning after treatment ? Seek shade when appropriate, remembering that the suns rays are strongest between 10am and 2pm. ? Wear protective clothing, such as a long-sleeved shirt, pants, a wide-brimmed hat and sunglasses, where possible. ? Use a broad-spectrum sunscreen (both UVA and UVB protection) with an SPF of 30 or higher that offers water-resistance. ? Reapply sunscreen approximately every 2 hours, after swimming or sweating, even on cloudy days. ? Do not use tanning beds or other indoor tanning devices. ? Check your skin often. Contact us if you notice a growth on your skin that: starts to itch or bleed, becomes noticeably thicker, remains after treatment, changes in size, shape or color. in this encounter Progress Notes * Rah Franks MD - 05/14/2017 12:45 PM DOCTOR OF DENTAL MEDICINE Formatting of this note may be different from the original. ATTESTATION I personally performed the yeh portions of the E/M visit, discussed case with resident and concur with resident documentation of history, physical exam, assessment, and treatment plan unless otherwise noted. I performed cryotherapy to 19 AKs on the scalp Staff name: Rah Franks MD Date: 05/14/2017 * Chance Mays MD - 05/14/2017 12:45 PM DOCTOR OF DENTAL MEDICINE Formatting of this note may be different from the original. Subjective: History of Present Illness Oleg Hendricks is a 76 y.o. male. Return. 04-24-2017 1. H/o FELIX cirrhosis s/p liver transplant()on [...] 03-29-2017 - mid frontal hairline SCC s/p [facility] Mohs 03-29-2017 - L superior jehovah's witness at least HAK rebiopsied 12-21-2016 - L Inferior [place] s/p Mohs with Dr. Rodriguez - R [...] Harvinder 2014 3. 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 HENT: Negative for congestion, mouth sores and sore throat. Eyes: Negative for pain, redness, itching and visual disturbance. Respiratory: Negative for cough and shortness of breath. Cardiovascular: Negative for palpitations and leg swelling. Gastrointestinal: Negative for abdominal pain, blood in stool, diarrhea, nausea and vomiting. Genitourinary: Negative for difficulty urinating and hematuria. Musculoskeletal: Negative for arthralgias and myalgias. Skin: Negative for color change, pallor, rash and wound. Neurological: Negative for dizziness and seizures. Hematological: Does not bruise/bleed easily. Psychiatric/Behavioral: Negative for confusion and dysphoric mood. The patient is not nervous/anxious. Objective: amLODIPine (NORVASC) 10 mg tablet TAKE [...] Take 220 mg by mouth daily. Vitals: 05/14/17 1253 Weight: 113.4 kg (250 lb) Height: 188 [...] with primarily globular and reticular patterns. - 19 erythematous scaly papule(s) are noted on the scalp x 19 lesions Hemorrhagic crust over red papule on R scalp Assessment and Plan: 1. 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 Hx of multiple squamous cell cancers, most recent - no evidence of recurrence - 1 upcoming MOhs - Restart OTC nicotinamide 500 to BID 3. Hx of multiple basal cell carcinomas - no evidence of recurrence 4. Actinic Keratosis: - LN2 x 19 lesions - sunprotection advised 5. 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 Stasis dermatitis - Compression stockings & elevation as much as possible 7. Melanocytic nevi - Will cont to monitor - Counseled on ABCD's of melanoma and given pamphlet on melanoma - Counseled on sunscreen and wide-brimmed hat use - vitamin D3 [phone] U/day in winter - RTC for return to clinic for any new, changing or symptomatic lesions - Encouraged to continue to monitor nevi at home 8. Previous biopsy site of R scalp - if not healed by next visit will plan to biopsy - photo documented in chart RTC: 3 weeks in this encounter Procedure Notes * Chance Mays MD - 05/14/2017 12:45 PM DOCTOR OF DENTAL MEDICINE Associated Order(s): SKIN LESION DESTRUCTION Procedure(s): UT DESTRUCTION PREMALIGNANT LESION 15/> Pre-Procedure Diagnose(s): Actinic keratosis Liquid Nitrogen Procedure Note Risk and benefits of the above procedure including pain, dyspigmentation, scar, infection, recurrence were discussed with the patient (or legal guardian) in detail, who afterwards decided to proceed with the procedure. Verbal informed consent given Diagnosis: AK Body site: Scalp x 19 Number of lesions: 19 Cycle duration: 10 sec Number or cycles: 2 Wound care instructions given: Yes Complications: None Tolerated well: Yes Ambulated from room: Yes Duration of procedure: > 5min in this encounter Plan of Treatment Name Priority Associated Diagnoses Order Schedule SKIN LESION DESTRUCTION Routine Actinic keratosis Ordered: 05/14/2017 as of this encounter Visit Diagnoses Diagnosis Actinic keratosis - Primary Multiple benign nevi Benign neoplasm of skin, site unspecified Immunosuppressed status (HCC) Unspecified disorder of immune mechanism History of squamous cell carcinoma Personal history of malignant neoplasm of other site History of basal cell cancer Personal history of other malignant neoplasm of skin Seborrheic dermatitis Seborrheic dermatitis, unspecified Stasis dermatitis of both legs Varicose veins of lower extremities with inflammation
--- OUTSIDE RECORDS SUMMARY | 2017-07-23 19:37 | XMS REPORT | Encounter Summary ---
Author Author [facility] Organization [facility] Address Unknown Phone Unavailable Care Team Providers Care Specialized Developer Name Role Phone Regan Brock MD Unavailable Prerna Gray APRN Unavailable Micah Pizano MD Unavailable Rudy Almendarez MD Unavailable Unavailable Yamile Rodriguez PhD Unavailable Arpan Blakely MD Unavailable Lida Yang Unavailable Doctor, Miscellaneous Unavailable Unavailable Josy Sampson MD Unavailable Guille Han MD Unavailable Miranda Gomez BALLAST REGULATOR OPERATOR Unavailable Unavailable Rehana Arellano RN Unavailable Unavailable Hetal Mark MD Unavailable Luigi Callahan MD Unavailable Unavailable Bridget Yip MD Unavailable Harini Perez BALLAST REGULATOR OPERATOR Unavailable Unavailable Monalisa Cardoza BALLAST REGULATOR OPERATOR Unavailable Rah Franks MD Unavailable Mitul Rai MD Unavailable Monalisa Gtz BALLAST REGULATOR OPERATOR Unavailable Fabiana Rodriguez MD Unavailable Jared [...] Unavailable Fortino Hamm MD Unavailable Farhad Silva BALLAST REGULATOR OPERATOR Unavailable Tonia David MD Unavailable Unavailable [...] Team Description 06/01/2017 Orders Only [facility] 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) [address] [facility] [place] [address] Social History Tobacco Use Types Packs/Day Years [...] Treatment Name Priority Associated Diagnoses Order Schedule CBC AND DIFF Routine Liver replaced by Monthly for 6 transplant (HCC) Occurrences starting 06/01/2017 until 06/01/2018, 1 completed COMPREHENSIVE METABOLIC PANEL Routine Liver replaced by Monthly for 6 transplant (HCC) Occurrences starting 06/01/2017 until 06/01/2018, 1 completed GGTP Routine Liver replaced by Monthly for 6 transplant (HCC) Occurrences starting 06/01/2017 until 06/01/2018, 2 completed MAGNESIUM Routine Liver replaced by Monthly for 6 transplant (HCC) Occurrences starting 06/01/2017 until 06/01/2018, 1 completed PHOSPHORUS Routine Liver replaced by Monthly for 6 transplant (HCC) Occurrences starting 06/01/2017 until 06/01/2018, 1 completed TACROLIMUS LEVEL(FK506) Routine Liver replaced by Monthly for 6 transplant (HCC) Occurrences starting 06/01/2017 until 06/01/2018 EVEROLIMUS BLOOD Routine Liver replaced by Monthly for 6 transplant (HCC) Occurrences starting 06/01/2017 until 06/01/2018, 1 completed as of this encounter Results * EVEROLIMUS BLOOD (05/31/2017 8:40 AM) Component Value Ref Range Everolimus 8.6 ng/mL Specimen Performing Laboratory LABDE INTERFACE Narrative Outside Lab Verified by Jolie Hernandez on 06/06/2017. * PHOSPHORUS (05/31/2017 8:40 AM) Component Value [...] by Maria Teresa Isabel on 06/01/2017. * GGTP (05/31/2017 8:40 AM) Component Value Ref Range GGTP 12 0 - 65 U/L Specimen Performing Laboratory Blood LABDE INTERFACE Narrative Outside Lab Verified by Jolie Hernandez on 06/06/2017. * GGTP (05/31/2017 8:40 AM) Component Value Ref Range GGTP 12 0 - 65 U/L Specimen Performing Laboratory Blood LABDE INTERFACE Narrative Outside Lab Verified by Elizabeth Goetz on 06/04/2017. * COMPREHENSIVE METABOLIC PANEL (05/31/2017 8:40 AM) [...] by Maria Teresa Isabel on 06/01/2017. 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
--- OUTSIDE RECORDS SUMMARY | 2017-07-23 19:37 | XMS REPORT | Encounter Summary ---
Author Author [facility] Organization [facility] Address Unknown Phone Unavailable Care Team Providers Care Digital Media Producer Name Role Phone Maria Victoriajuan carlos Faizan LOPEZ PCP Regan Brock MD Unavailable Prerna Gray APRN Unavailable Micah Pizano MD Unavailable Rudy Almendarez MD Unavailable Unavailable Yamile Rodriguez PhD Unavailable Arpan Blakely MD Unavailable Lida Yang Unavailable Doctor, Miscellaneous Unavailable Unavailable Josy Sampson MD Unavailable Guille Han MD Unavailable Miranda Gomez MACHINE OR MACHINERY MECHANIC Unavailable Unavailable Rehana Arellano RN Unavailable Unavailable Hetal Mark MD Unavailable Luigi Callahan MD Unavailable Unavailable Bridget Yip MD Unavailable Harini Perez MACHINE OR MACHINERY MECHANIC Unavailable Unavailable Monalisa Cardoza MACHINE OR MACHINERY MECHANIC Unavailable Rah Franks MD Unavailable Mitul Rai MD Unavailable Monalisa Gtz MACHINE OR MACHINERY MECHANIC Unavailable Fabiana Rodriguez MD Unavailable Jared [...] Unavailable Fortino Hamm MD Unavailable Farhad Silva MACHINE OR MACHINERY MECHANIC Unavailable Tonia David MD Unavailable Unavailable Josué Arellano MD Unavailable Nancy Garner MD Unavailable Isi Gunderson RN Unavailable Unavailable Eva Rothman MA Unavailable Unavailable Tracey Alfaro Unavailable Unavailable Chaka High MD Unavailable Unavailable Pricilla Rodriguez Unavailable Unavailable Thea Serrano RN Unavailable Unavailable Aurelio Ortega MD Unavailable Denis Tavares MD Unavailable Encounter Details Date Type Department Care Team Description 05/14/2017 Hospital [facility] Regan Brock MD Liver transplant status Encounter [address] (HCC) [place] [address] [id number] [place] [address] [phone] Social History Tobacco Use Types Packs/Day Years [...] impairment: No 05/14/2017 as of this encounter Medications at Time of Discharge Medication Sig. Disp. Refills Start Date End Date amLODIPine (NORVASC) 10 TAKE ONE TABLET BY MOUTH 30 Tab 10 04/10/2016 mg tablet DAILY aspirin 81 mg chewable Take 1 Tab by mouth 30 Tab 5 07/26/2015 tablet daily. atorvastatin (LIPITOR) 10 1 Tab daily. 90 Tab 3 06/27/2016 mg tablet calcium carbonate Take 1,250 mg by mouth (OS-RANJIT) 1250 mg tablet daily. cefdinir (OMNICEF) 300 mg Take 300 mg by mouth capsule every 12 hours. doxazosin (CARDURA) 2 mg Take 1 Tab by mouth 30 Tab 0 06/03/2015 tablet daily. everolimus Take 4 tablets by mouth 240 tablet 11 05/03/2017 (immunosuppressive) twice daily. (ZORTRESS) 0.[address] TAKE ONE TABLET BY MOUTH 30 tablet 5 03/13/2017 (PROTONIX) 40 mg tablet DAILY tacrolimus (PROGRAF) 1 mg Take 1 capsule by mouth 60 capsule 5 2016 capsule twice daily. tamsulosin (FLOMAX) 0.4 TAKE ONE CAPSULE BY MOUTH 30 Cap 11 2015 mg capsule DAILY AFTER BREAKFAST traMADol (ULTRAM) 50 mg Take 1 Tab by mouth every 6 Tab 0 07/07/2016 tablet 8 hours as needed for Pain. zinc sulfate 220 mg (50 Take 220 mg by mouth mg elemental zinc) daily. capsule cephalexin (KEFLEX) 500 Take 1 capsule by mouth 15 capsule 0 201606/28/2017 mg capsule three times daily. cephalexin (KEFLEX) 500 Take 1 capsule by mouth 15 capsule 0 201606/28/2017 mg capsule three times daily. senna/docusate Take 1 tablet by mouth 10 tablet 0 01/26/20172017 (SENOKOT-S) 8.6/50 mg daily. tablet Sevelamer Carbonate Take 3 tablets by mouth 06/28/2017 (RENVELA) 800 mg tab three times daily. as of this encounter Plan of Treatment Not on fileas of this encounter Results * 25-OH VITAMIN D (D2 + D3) (05/14/2017 10:52 AM) Component Value Ref Range Vitamin D(25-OH)Total 41.9 30 - 80 NG/ML Specimen Performing Laboratory Blood MAIN LAB [address] [place] [address] * LIPID PROFILE (05/14/2017 10:52 AM) Component [...] mg/dL. Specimen Performing Laboratory Blood MAIN LAB [address] [place] [address] * TACROLIMUS LEVEL(FK506) (05/14/2017 10:52 AM) Component Value Ref Range Tacrolimus 7.7 2 - 15 NG/ML Comment: Target concentrations vary by type of transplant, patient response, concomitant immunosuppression and post-transplant time interval. Test was performed on whole blood using ExSafeS reagent and a [employer] AU analyzer. Specimen Performing Laboratory Blood MAIN LAB [address] [place] [address] * HEPATITIS C AB (05/14/2017 10:52 AM) Component Value Ref Range Anti HCV NEG Specimen Performing Laboratory Blood MAIN LAB [address] [place] [address] * HEPATITIS B SURFACE AG (05/14/2017 10:52 AM) Component Value Ref Range HBsAg NEG Specimen Performing Laboratory Blood MAIN LAB [address] [place] [address] * HEPATITIS B SURFACE AB (05/14/2017 10:52 AM) Component Value Ref Range Anti HBs <2.5 mIU/ml Comment: Hepatitis B Surface Antibody Reference Ranges >12.0 Positive 8.0-12.0 Equivocal <8.0 Negative Specimen Performing Laboratory Blood MAIN LAB [address] [place] [address] * HEPATITIS B CORE AB TOT (IGG+IGM) (05/14/2017 10:52 AM) Component Value Ref Range Anti HBc Total NEG Specimen Performing Laboratory Blood MAIN LAB [address] [place] [address] * EVEROLIMUS BLOOD (05/14/2017 10:52 AM) Component Value Ref Range Everolimus 19.6 (H) 3 - 10 ng/mL Comment: Target concentrations vary by type of transplant, patient response, concomitant immunosuppression and post-transplant time interval. Test was performed on whole blood using ExSafeS reagent and a [employer] AU analyzer. Specimen Performing Laboratory MAIN LAB [address] [place] [address] * PHOSPHORUS (05/14/2017 10:52 AM) Component Value Ref Range Phosphorus 7.6 (H) 2.0 - 4.0 MG/DL Specimen Performing Laboratory Blood MAIN LAB [address] [place] [address] * MAGNESIUM (05/14/2017 10:52 AM) Component Value Ref Range Magnesium 2.5 1.6 - 2.6 mg/dL Specimen Performing Laboratory Blood MAIN LAB [address] [place] [address] * GGTP (05/14/2017 10:52 AM) Component Value Ref Range GGTP 13 9 - 64 U/L Specimen Performing Laboratory Blood MAIN LAB [address] [place] [address] * COMPREHENSIVE METABOLIC PANEL (05/14/2017 10:52 AM) Component Value Ref Range Sodium 138 137 - 147 MMOL/L Potassium 3.8 3.5 - 5.1 MMOL/L Chloride 98 98 - 110 MMOL/L Glucose 140 (H) 70 - 100 MG/DL Blood Urea Nitrogen 62 (H) 7 - 25 MG/DL Creatinine 11.39 (H) 0.4 - 1.24 MG/DL Calcium 9.8 8.5 - 10.6 MG/DL Total Protein 7.5 6.0 - 8.0 G/DL Total Bilirubin 0.4 0.3 - 1.2 MG/DL Albumin 4.3 3.5 - 5.0 G/DL Alk Phosphatase 76 25 - 110 U/L AST (SGOT) 10 7 - 40 U/L CO2 25 21 - 30 MMOL/L ALT (SGPT) 14 7 - 56 U/L Anion Gap 15 (H) 3 - 12 eGFR Non 4 (L) >60 mL/min Comment: The eGFR is not validated for use in drug dosing adjustments. Continue to use estimated creatinine clearance per dosing reference text. Please contact the Clinical Pharmacist for questions. eGFR 5 (L) >60 mL/min Comment: The eGFR is not validated for use in drug dosing adjustments. Continue to use estimated creatinine clearance per dosing reference text. Please contact the Clinical Pharmacist for questions. Specimen Performing Laboratory Blood MAIN LAB [address] [place] [address] * CBC AND DIFF (05/14/2017 10:52 AM) Component Value Ref Range White Blood Cells 3.2 (L) 4.5 - 11.0 K/UL RBC 3.34 (L) 4.4 - 5.5 M/UL Hemoglobin 10.5 (L) 13.5 - 16.5 GM/DL Hematocrit 29.9 (L) 40 - 50 % MCV 89.6 80 - 100 FL MCH 31.5 26 - 34 PG MCHC 35.1 32.0 - 36.0 G/DL RDW 16.6 (H) 11 - 15 % Platelet Count 210 150 - 400 K/UL MPV 6.2 (L) 7 - 11 FL Neutrophils 71 41 - 77 % Lymphocytes 19 (L) 24 - 44 % Monocytes 8 4 - 12 % Eosinophils 1 0 - 5 % Basophils 1 0 - 2 % Absolute Neutrophil Count 2.30 1.8 - 7.0 K/UL Absolute Lymph Count 0.60 (L) 1.0 - 4.8 K/UL Absolute Monocyte Count 0.30 0 - 0.80 K/UL Absolute Eosinophil Count 0.00 0 - 0.45 K/UL Absolute Basophil Count 0.00 0 - 0.20 K/UL Specimen Performing Laboratory Blood MAIN LAB [address] [place] [address] in this encounter Visit Diagnoses Diagnosis Liver replaced by transplant (HCC) Liver replaced by transplant ESRD needing dialysis (HCC) End stage renal disease Disorder of bone density and structure, unspecified Admitting Diagnoses Diagnosis Liver transplant status (HCC) Liver transplant status Disorder of bone density and structure, unspecified
--- OUTSIDE RECORDS SUMMARY | 2017-07-23 19:38 | XMS REPORT | Encounter Summary ---
Author Author [facility] Organization [facility] Address Unknown Phone Unavailable Care Team Providers Care Kitchen Clerk Name Role Phone Maria Victoriajuan carlos Faizan LOPEZ PCP Regan Brock MD Unavailable Prerna Gray APRN Unavailable Micah Pizano MD Unavailable Rudy Almendarez MD Unavailable Unavailable Yamile Rodriguez PhD Unavailable Arpan Blakely MD Unavailable Lida Yang Unavailable Doctor, Miscellaneous Unavailable Unavailable Josy Sampson MD Unavailable Guille Han MD Unavailable Miranda Goemz ENGAGEMENT MGR Unavailable Unavailable Rehana Arellano RN Unavailable Unavailable Hetal Mark MD Unavailable Luigi Callahan MD Unavailable Unavailable Bridget Yip MD Unavailable Harini Perez ENGAGEMENT MGR Unavailable Unavailable Monalisa Cardoza ENGAGEMENT MGR Unavailable Rah Franks MD Unavailable Mitul Rai MD Unavailable Monalisa Gtz ENGAGEMENT MGR Unavailable Fabiana Rodriguez MD Unavailable Jared Adam MD Unavailable Thierry Garduno MD Unavailable Reagn Gamble MD Unavailable Laly Ceja MD Unavailable [...] Unavailable Fortino Hamm MD Unavailable Farhad Silva ENGAGEMENT MGR Unavailable Tonia David MD Unavailable Unavailable Josué [...] Details Date Type Department Care Team Description 04/24/2017 Office Visit [facility] Lorenzo Higgins MD History of basal cell Physicians - Internal [address] cancer (Primary Dx); [place] [address] 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 [phone] carcinoma of skin; [address] [facility] MED Multiple melanocytic OFFICE BLDG nevi; [place], [place] Seborrheic dermatitis; [id number] Liver cirrhosis secondary [phone] to [facility]EL[facility] (HCC); Immunosuppressed status (HCC); Actinic keratosis Social History Tobacco Use Types Packs/Day Years [...] - Inhaled Oxygen - - Concentration Weight 108.9 kg (240 lb) 04/24/2017 2:29 PM SOLAR SITE ASSESSMENT SPECIALIST Height 188 cm (6' 2") 04/24/2017 2:29 PM SOLAR SITE ASSESSMENT SPECIALIST Body Mass Index 30.81 04/24/2017 2:29 PM SOLAR SITE ASSESSMENT SPECIALIST in this encounter Functional Status Functional Status Response Date of Assessment Does the patient have a hearing impairment: No 05/15/2016 Does the patient have a visual impairment: Yes 05/15/2016 Does the patient have impaired ambulation: Yes 05/15/2016 Does the patient have an activity of daily living No 05/15/2016 (ADL) impairment: Does the patient have an instrumental activity of No 05/15/2016 daily living (IADL) impairment: Cognitive Status Response Date of Assessment Does the patient have a cognitive impairment: No 05/15/2016 as of this encounter Instructions * Patient Instructions - Lorenzo Higgins MD - 04/24/2017 2:30 PM SOLAR SITE ASSESSMENT SPECIALIST Formatting of this note may be different from the original. Sunscreen we recommend: In general: zinc based. [place], Bare Minerals, Blue Lizard, CeraVe, Cotz, Goddess Garden, Green Screen, Mineral Fusion, SkinCeuticals, Vanicream How much sunscreen to use: 2 shot-glases=whole body How do sunscreens work? Sunscreens help protect your skin by absorbing, reflecting or scattering the sun's UV rays. All sunscreens contain labels with sun protective factor numbers (SPF). The higher the SPF the more protection you have from sunburn and UVB rays. However, sunscreen loses its effectiveness after about 2 hours. Sunscreens that protect against both UVA and UVB rays (considered BROAD SPECTRUM ) do a better job of protecting skin from the many harmful effects of the sun. How do I use sunscreen? Apply sunscreen to dry skin 30 minutes before going outdoors. Put it on all areas of your skin exposed to the sun, including your face, ears, neck, and hands. Be sure to apply sunscreen generously and evenly. Ideally, sunscreen should be broad spectrum and water-resistant to provide protection even when sweating or swimming, and should have and SPF of 30 or higher. Also, use a lip balm with sunscreen to protect your lips from sunburn. Reapply sunscreens approximately every 2 hours, especially after swimming or sweating. Even water- resistant sunscreens may lose their effectiveness after 40 minutes in the water. Remember to use sunscreen even on cloudy days, because 80% of sun's UV rays can pass through the clouds. In addition, sand reflects 25% of the sun's rays and snow reflects 80% of the sun's rays. What are other ways to protect my skin? Seek shade whenever possible. The sun's rays are strongest between 10am and 4pm. Even on cool and cloudy days. Beach umbrellas and other forms of shade are good idea, but do not provide full protection as UV rays can bounce off sand, water, and porch decks. Ideally, use sunscreen with protective clothing, wide- brimmed hats and sunglasses. Most clothing absorbs or reflects some UV rays, however, watch out for light colored and loose-knit fabrics. In general, the tighter the weave and darker the colore, the more UV protection the clothing offers. Some companies have developed clothing with UPF to protect your skin from the sun. Look for products of UPF 30 or more. Laundry additives are powders which you can put in the washer with your clothes to increase their UPF to about 30. TIPS FOR SUN PROTECTION Generously apply broad-spectrum water resistant sunscreen with SPF 30 or greater. Reapply every 2 hours. Wear protective clothing (wide-brimmed hat, long-sleeves, sunglasses) Seek shade when possible (sun's rays peak 10am-4pm) Protect children from sun Use extra caution near water, snow and sand Get Vitamin D safely thought healthy diet and supplements if needed AVOID TANNING BEDS Check your birthday suit on your birthday---check for any new or changing moles, if anything is changing, growing, bleeding please see your transportation dispatcher 5 ways to reduce premature skin aging 1. Protect your skin from the sun: Sun protection forms the foundation of every anti-aging skin-care plan. The suns rays make our skin age more quickly. We have so much evidence that the sun prematurely ages our skin that there is actually a word to describe this effect. This word is photoaging. To help patients protect their skin from the sun and other harmful UV rays, dermatologists offer these tips: Seek shade: Be sure to seek shade between 10 a.m. and 2 p.m. and whenever your shadow looks shorter than you are. Cover up in style: Whenever possible, wear a wide-brimmed hat, pants, and long sleeves. Gloves help to minimize common signs of aging on our hands such as age spots. Sunglasses help reduce fine lines around our eyes. Slather on the sunscreen every day before going outdoors: To protect your skin, apply sunscreen to all skin that clothing will not cover. You want to use a zinc oxide cream based sunscreen that offers broad-spectrum protection, SPF 30 ( or higher), and water resistance. 2. Forget about indoor tanning: The sun, tanning beds, and sun lamps expose you to harmful ultraviolet (UV) rays. These rays accelerate skin aging. 3. Apply moisturizer every day: As we age, skin becomes spray drier. Fine lines and wrinkles appear. Moisturizer traps water in our skin, giving it a more youthful appearance. For best results, use a facial moisturizer, body moisturizer, and lip balm. 4. Wash away dirt and grime twice a day: How you wash your face can affect your appearance. For best results, you want to wash with warm water and a mild cleanser rather than soap. You also should avoid scrubbing your skin clean. 5. Stop smoking: Tobacco smoke contains toxins that can lead to smokers face. Signs of smokers face include dull and dry complexion, loss of skin s firmness, premature lines and wrinkles, and leathery skin. Never too late to benefit Even people who already have signs of premature skin aging can benefit from making lifestyle changes. By protecting your skin from the sun, you give it a chance to repair some of the damage. Smokers who stop often notice that their skin looks healthier. What happens when I don't protect my skin from the sun? Skin Cancer: most skin cancers develop on skin that get years of sun exposure, like the face, neck, ears, forearms, hands, and trunk. Basal cell carcinoma (BCC): looks like a flesh-colored amelia-like bump or pinkish patch of skin. With early treatment this type of skin cancer can be cured. Left untreated, BCC can cause bleeding, and severe damage, which can be disfiguring. Squamous cell carcinoma (SCC): looks like a red scaly patch, raised firm bump, or a sore that heals and reopens. With early detection and proper treatment SCC also has a high cure rate. Left untreated, SCC also can be disfiguring. In rare cases untreated SCC can spread to other areas of the body and be deadly. Melanoma: may develop in a mole or it can appear on the skin as a new dark spot. Sometimes melanoma contains shades of red, blue or white. When found early melanoma can be cured. Left untreated, melanoma can spread to other jerrod of the body. One person dies of melanoma every hour. Sunburn: Too many sunburns that blister increase your risk of developing skin cancer. Avoiding sunburn is important. If you do get sunburn, most people get relief from cool, wet compresses or baths and soothing lotions. When a fever, chills, upset stomach or confusion develop, you may need immediate medical attention. Tanning: Tanning is often mistaken as a sign of good health.A mtz develops when the skin tries to protect itself from the harmful UV rays of the sun. Indoor tanning is not a safe option to sun exposure. Tanning beds and sun lamps give off harmful UV radiation. This can be stronger than that from the sun, and can also increase your risk of skin cancer, including melanoma. There is no such thing as a "safe" mtz. Aging: Exposure to UV rays makes skin tough and leathery. It makes a person's skin age more quickly than normal. Skin exposed to the sun can develop large freckles, age spots, wrinkles, and scaly growths known as actinic keratoses (AKs ). AKs are considered an early stage in the development of skin cancer. Allergic reactions and other conditions: For some, sun causes and allergic reaction. Common signs of sun allergy are bumps, hives, blisters, and red blotches on the skin. People taking certain medications can develop a rash after being out in the sun. Medications that interact with UV light and can cause this reaction include control pills, antibiotics, and medications for treating blood pressure, arthritis and depression. Sun exposure can also worsen some diseases. People with lupus or cold sores should protect their skin from the sun. If a flare-up occurs be sure to consult a transportation dispatcher. Content developed by [employer]. Melanoma Also called malignant melanoma Skin cancer screening: If you notice a mole that differs from others or one that changes, bleeds, or itches, see a transportation dispatcher. Melanoma is a type of skin cancer. Anyone can get melanoma. When found early and treated, the cure rate is nearly 100%. Allowed to grow, melanoma can spread to other parts of the body. Melanoma can spread quickly. When melanoma spreads, it can be deadly.Dermatologists believe that the number of deaths from melanoma would be much lower if people: Knew the warning signs of melanoma. [place] how to examine their skin for signs of skin cancer. Took the time to examine their skin. Its important to take time to look at the moles on your skin because this is a good way to find melanoma early. When checking your skin, you should look for the ABCDEs of melanoma. ABCDE's of melanoma: When performing monthly skin exams for your moles or new moles, remember the ABCDE's of melanoma: A - Asymmetry. (Concerning if spot is not symmetric) B - Border. (Irregular border or notched border are concerning) C - Color. (Multiple colors or changes in color are concerning.) D - Diameter. (Larger than 6mm, ie, a pencil eraser, is concerning.) E - Evolution. (An evolving or changing spot is concerning. If new itch, tenderness, or bleeding develop, these are concerning changes too. See further explanation below: Melanoma: Signs and symptoms Anyone can get melanoma. Its important to take time to look at the moles on your skin because this is a good way to find melanoma early. When checking your skin, you should look for the ABCDEs of melanoma. ABCDEs of melanoma A=Asymmetry One half is unlike the other half. B=Border An irregular, scalloped, or poorly defined border. C=Color Is varied from one area to another; has shades of mtz, brown or black, or is sometimes white, red, or blue. D=Diameter Melanomas usually greater than 6mm (the size of a pencil eraser) when diagnosed , but they can be smaller. E=Evolving A mole or skin lesion that looks different from the rest or is changing in size , shape, or color. !! If you see a mole or new spot on your skin that has any of the ABCDEs, immediately make an appointment to see a transportation dispatcher. Signs of melanoma The most common early signs (what you see) of melanoma are: Growing mole on your skin. Unusual looking mole on your skin or a mole that does not look like any other mole on your skin (the ugly duckling). Non-uniform mole (has an odd shape, uneven or uncertain border, different colors ). Symptoms of melanoma In the early stages, melanoma may not cause any symptoms (what you feel). But sometimes melanoma will: Itch. Bleed. Feel painful. Many melanomas have these signs and symptoms, but not all. There are different types of melanoma. One type can first appear as a brown or black streak underneath a fingernail or toenail. Melanoma also can look like a bruise that just wont heal. Who gets melanoma? Anyone can get melanoma. Most people who get it have light skin, but people who have brown and black skin also get melanoma. Some people have a higher risk of getting melanoma. These people have the following traits: Skin Fair skin (The risk is higher if the person also has red or blond hair and blue or green eyes). Sun-sensitive skin (rarely tans or lindsay easily). 50-plus moles, large moles, or unusual-looking moles. If you have had bad sunburns or spent time tanning (sun, tanning beds, or sun lamps), you also have a higher risk of getting melanoma. Men older than 50 are at a higher risk for developing skin cancers, including melanoma. Learning how to check your skin and getting skin exams can help detect skin cancer. Family/medical history Melanoma runs in the family (parent, child, sibling, cousin, aunt, uncle had melanoma). You had another skin cancer, but most especially another melanoma. A weakened immune system. Research shows that indoor tanning increases a person's melanoma risk by 75%. The risk also may increase if you had breast or thyroid cancer. More people getting melanoma Fewer people are getting most types of cancer. Melanoma is different. More people are getting melanoma. Many are white men who are 50 years or older. More young people also are getting melanoma. Melanoma is now the most common cancer among people 25-29 years old. Even teenagers are getting melanoma. What causes melanoma? Ultraviolet (UV) radiation is a major contributor in most cases. We get UV radiation from the sun, tanning beds, and sun lamps. Heredity also plays a role. Research shows that if a close blood relative (parent, child, sibling, aunt, uncle) had melanoma, a person has a much greater risk of getting melanoma. How do dermatologists diagnose melanoma? To diagnose melanoma, a transportation dispatcher begins by looking at the patients skin. A transportation dispatcher will carefully examine moles and other suspicious spots. To get a better look, a transportation dispatcher may use a device called a dermoscope. The device shines light on the skin. It magnifies the skin. This helps the transportation dispatcher to see pigment and structures in the skin. The transportation dispatcher also may feel the patients lymph nodes. Many people call these lymph glands. If the transportation dispatcher finds a mole or other spot that looks like melanoma, the transportation dispatcher will remove it (or part of it). The removed skin will be sent to a lab. Your transportation dispatcher may call this a biopsy. Melanoma cannot be diagnosed without a biopsy. This biopsy is quick, safe, and easy for a transportation dispatcher to perform. This type of biopsy should not cause anxiety. The discomfort and risks are minimal. If the biopsy report says that the patient has melanoma, the report also may tell the stage of the melanoma. Stage tells the doctor how deeply the cancer has grown into the skin. The melanoma stages are: Stage Description Stage 0 (in situ) Melanoma is confined to the epidermis (top layer of skin). Stage I Melanoma is confined to the skin, but has grown thicker. It can be as thick as 1.0 millimeter. In stage IA, the skin covering the melanoma remains intact. In stage IB, the skin covering the melanoma has broken open (ulcerated) . Stage II Melanoma has grown thicker. The thickness ranges from 1.01 millimeters to greater than 4.0 millimeters. The skin covering the melanoma may have broken open (ulcerated). While thick, the cancer has not spread. Stage III Melanoma has spread to either: 1) one or more nearby lymph node ( often called lymph gland) or 2) nearby skin. Stage IV Melanoma has spread to an internal organ, lymph nodes further from the original melanoma, or is found on the skin far from the orignal melanoma. Sometimes the patient needs another type of biopsy. A type of surgery called a sentinel lymph node biopsy (SLNB) may be recommended to stage the melanoma. When melanoma spreads, it often goes to the closest lymph nodes first. A SLNB tells doctors whether the melanoma has spread to nearby lymph nodes. Other tests that a patient may need include x-rays, blood work, and a CT scan. How do dermatologists treat melanoma? The type of treatment a patient receives depends on the following: How deeply the melanoma has grown into the skin. Whether the melanoma has spread to other parts of the body. The patients health. The following describes treatment used for melanoma. Surgery: When treating melanoma, doctors want to remove all of the cancer. When the cancer has not spread, it is often possible for a transportation dispatcher to remove the melanoma during an office visit. The patient often remains awake during the surgical procedures described below. These procedures are used to remove skin cancer: Excision: To perform this, the transportation dispatcher numbs the skin. Then, the transportation dispatcher surgically cuts out the melanoma and some of the normal-looking skin around the melanoma. This normal-looking skin is called a margin. There are different types of excision. Most of the time, this can be performed in a dermatologists office. Mohs surgery: A transportation dispatcher who has completed additional medical training in Mohs surgery performs this procedure. Once a transportation dispatcher completes this training, the transportation dispatcher is called a Mohs surgeon. Mohs surgery begins with the Mohs surgeon removing the visible part of the melanoma. Next, the surgeon begins removing the cancer cells. Cancer cells are not visible to the naked eye, so the surgeon removes skin that may contain cancer cells one layer at a time. After removing a layer, it is prepped so that the surgeon can examine it under a microscope and look for cancer cells. This [id number] approach continues until the surgeon no longer finds cancer cells. In most cases, Mohs surgery can be completed within a day or less. Mohs has a high cure rate. When caught early, removing the melanoma by excision or Mohs may be all the treatment a patient needs. In its earliest stage, melanoma grows in the epidermis (outer layer of skin). Your transportation dispatcher may refer to this as melanoma in situ or stage 0. In this stage, the cure rate with surgical removal is nearly 100%. When melanoma grows deeper into the skin or spreads, treatment becomes more complex. It may begin with one of the surgeries described above. A patient may need more treatment. Other treatments for melanoma include: Lymphadenectomy: Surgery to remove lymph nodes. Immunotherapy: Treatment that helps the patients immune system fight the cancer. Targeted therapy: Drugs that can temporarily shrink the cancer; however, some patients appear to be fully cured. Chemotherapy: Medicine that kills the cancer cells (and some normal cells). Radiation therapy: X-rays that kill the cancer cells (and some normal cells). Other treatment that may be recommended includes: Clinical trial: A clinical trial studies a medicine or other treatment. A doctor may recommend a clinical trial when the treatment being studied may help a patient. Being part of a medical research study has risks and benefits. Before joining a clinical trial, patients should discuss the possible risks and benefits with their doctor. The decision to join in a clinical trial rests entirely with the patient. Adoptive T-cell therapy: This treatment uses the patient's immune system to fight the cancer. Instead of receiving medicine, the patient has blood drawn. The blood is sent to a lab so that the T cells (cells in our body that help us fight cancers and infections) can be removed. These T cells are then placed in a culture so that they can multiply. Once the T cells are ready, they are injected back into the patient. Some patients with advanced melanoma have had long-lasting remission. This therapy, however, is not widely available. Palliative care: This care can relieve symptoms and improve a patients quality of life. It does not treat the cancer. Many patients receive palliative care, not just patients with late-stage cancer. When melanoma spreads, palliative care can help control the pain and other symptoms. Radiation therapy is a type of palliative care for stage IV (has spread) melanoma. It can ease pain and other symptoms. Outcome This depends on how deeply the melanoma has grown into the skin. If the melanoma is properly treated when it is in the top layer of skin, the cure rate is nearly 100%. If the melanoma has grown deeper into the skin or spread, the patient may . Finding melanoma Finding melanoma early is important. When melanoma is found early and treated, it is almost 100% curable. This is true even if you have had melanoma. If melanoma spreads, it can be deadly. Here is what you can do to find melanoma early: Check your skin for signs of skin cancer. To help people find melanoma early, the [employer] created the body mole map, which: Illustrates how to examine your skin. Shows you what to look for (ABCDEs of melanoma). Gives you a place to write down where your moles appear on your body. When examing your skin, be sure to check your scalp, feet, nails, and genital area. Melanoma can appear on parts of the body that people do not think to check. And check your scalp, palms, soles, fingernails, and toenails. Melanoma can appear under a nail. Beneath a nail, the most common early warning sign of melanoma is a brown- to black-colored nail streak. Another early warning sign is a spot that looks like a bruise. The bruise may fade and then come back. Make an appointment to see a transportation dispatcher. If you find a mole or growth on your skin that is growing, unusual, bleeding or not like the rest, you should see a transportation dispatcher. Get a free skin cancer screening. The [employer] offers free skin cancer screenings throughout the [place]. Most free screenings happen in the spring. If you do not find a screening in your area, you can sign up to receive an email that lets you know when the next free screening will take place in your area. If you have had melanoma You should know that you have a higher (5 times higher) risk of getting another melanoma. But, there is good news. Finding melanoma early still leads to a high cure rate. You should: Examine your skin for signs of skin cancer. Keep all appointments for follow-up exams. The sooner melanoma or another skin cancer is found, the better the outcome. During follow-up exams, the doctor may do more than look at your skin. You may need to see an eye doctor. Melanoma can develop in the eye. You may need blood work or an x-ray. Preventing skin cancer The following can help everyone reduce their risk of getting skin cancer: If you mtz, stop. Tanning outdoors, using tanning beds, and sitting under sun lamps are not safe. Research shows indoor tanning increases a person's melanoma risk by 75%. And forget about getting a base mtz before going on a tropical vacation. A base mtz will not protect you. It just increases your risk for getting skin cancer. A mtz is not a sign of good health. It is a sign that you have damaged your skin. Spend time outdoors when the sun is less intense. Before 10 a.m. and after 2 p.m., the suns rays are less intense. Wear sunscreen every day. Even on cloudy, rainy, and snowy days, you need to wear sunscreen. Here what to look for in a sunscreen: A Sun Protection Factor (SPF) of at least 30. UVA and UVB protection. Wear sunglasses that have UV protection. Melanoma can develop in the eyes. How to apply sunscreen Apply at least 20 minutes before you go outside. Put sunscreen on all skin that will not be covered by clothing. If you spend time outside, reapply the sunscreen every 2 hours. in this encounter Progress Notes * Rah Franks MD - 04/24/2017 2:30 PM SOLAR SITE ASSESSMENT SPECIALIST Formatting of this note may be different from the original. ATTESTATION I personally performed the yeh portions of the E/M visit, discussed case with resident and concur with resident documentation of history, physical exam, assessment, and treatment plan unless otherwise noted. I performed cryotherapy to AKs on the L ear x3, forehead x9, R church x4, scalp x12 Staff name: Rah Franks MD Date: 04/24/2017 * Lorenzo Higgins MD - 04/24/2017 2:30 PM SOLAR SITE ASSESSMENT SPECIALIST Formatting of this note may be different from the original. Date of Service: 04/24/2017 Subjective: Oleg Hendricks is a 76 y.o. male. History of Present Illness Return. LV 03-20-2017. 1. 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 H/o multiple squamous cell cancers - R Antitragus. Bx 03-20-17. scheduled Mohs 06-06-2017 - R anterior lateral neck s/p Mohs 03-29-2017 - mid frontal hairline SCC s/p Mohs 03-29-2017 - L superior church at least HAK rebiopsied 12-21-2016 - L Inferior Orthodox s/p Mohs with Dr. 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 Constitutional: Negative for appetite change and unexpected [...] Take 1 Tab by mouth daily. everolimus (ZORTRESS) 0.5 mg tablet Take 3 Tabs by mouth twice daily. pantoprazole DR (PROTONIX) 40 mg tablet TAKE ONE TABLET BY MOUTH DAILY senna/docusate (SENOKOT-S) 8.6/50 mg tablet Take 1 tablet by mouth daily. Sevelamer Carbonate (RENVELA) 800 mg tab Take 3 tablets by mouth three times daily. tamsulosin (FLOMAX) 0.4 mg capsule TAKE ONE CAPSULE BY MOUTH DAILY AFTER BREAKFAST traMADol (ULTRAM) 50 mg tablet Take 1 Tab by mouth every 8 hours as needed for Pain. zinc sulfate 220 mg (50 mg elemental zinc) capsule Take 220 mg by mouth daily. Vitals: 04/24/17 1429 Weight: 108.9 kg (240 lb) Height: 188 cm (74") Body mass index is 30.81 kg/(m^2). Physical Exam Areas Examined (all normal [...] erythematous scaly papule(s) are noted on the l ear x3, forehead x9, r church x4, scalp x12 Assessment and Plan: 1. Chronic immunosuppressions/p liver transplant-2012 for FELIX cirrhosis - aware of elevated [...] and wide-brimmed hat use - vitamin D3 [id number] U/day in winter - RTC for return to clinic for any new, changing or symptomatic lesions - Encouraged to continue to monitor nevi at home RTC: 3 weeks in this encounter Procedure Notes * Lorenzo Higgins MD - 04/24/2017 2:30 PM SOLAR SITE ASSESSMENT SPECIALIST Associated Order(s): SKIN LESION DESTRUCTION Procedure(s): TX DESTRUCTION PREMALIGNANT LESION 15/> Pre-Procedure Diagnose(s): Actinic keratosis Liquid Nitrogen Procedure Note Risk and benefits of the above procedure including pain, dyspigmentation, scar, infection, recurrence were discussed with the patient (or legal guardian) in detail, who afterwards decided to proceed with the procedure. Verbal informed consent given Diagnosis: Actinic Keratosis Body site: l ear x3, forehead x9, r church x4, scalp x12 Number of lesions: 28 Cycle duration: 10 sec Number or cycles: 2 Wound care instructions given: Yes Complications: None Tolerated well: Yes Ambulated from room: Yes Duration of procedure: > 5min in this encounter Plan of Treatment Name Priority Associated Diagnoses Order Schedule SKIN LESION DESTRUCTION Routine Actinic keratosis Ordered: 04/24/2017 as of this encounter Visit Diagnoses Diagnosis History of basal cell cancer - Primary Personal history of other malignant neoplasm of skin History of squamous cell carcinoma of skin Personal history of other malignant neoplasm of skin Multiple melanocytic nevi Benign neoplasm of skin, site unspecified Seborrheic dermatitis Seborrheic dermatitis, unspecified 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
--- OUTSIDE RECORDS SUMMARY | 2017-07-23 19:38 | XMS REPORT | Encounter Summary ---
Author Author [facility] Organization [facility] Address Unknown Phone Unavailable Care Team Providers Care Critical Care Technician Name Role Phone Maria Victoriajuan carlos Faizan LOPEZ PCP Regan Brock MD Unavailable Prerna Gray APRN Unavailable Micah Pizano MD Unavailable Rudy Almendarez MD Unavailable Unavailable Yamile Rodriguez PhD Unavailable Arpan Blakely MD Unavailable Lida Yang Unavailable Doctor, Miscellaneous Unavailable Unavailable Josy Sampson MD Unavailable Guille Han MD Unavailable Miranda Gomez WASHER CUTTER Unavailable Unavailable Rehana Arellano RN Unavailable Unavailable Hetal Mark MD Unavailable Luigi Callahan MD Unavailable Unavailable Bridget Yip MD Unavailable Harini Perez WASHER CUTTER Unavailable Unavailable Monalisa Cardoza WASHER CUTTER Unavailable Rah Franks MD Unavailable Mitul Rai MD Unavailable Monalisa Gtz WASHER CUTTER Unavailable Fabiana Rodriguez MD Unavailable Jared Adam [...] Unavailable Fortino Hamm MD Unavailable Farhad Silva WASHER CUTTER Unavailable Tonia David MD Unavailable Unavailable Josué Arellano MD Unavailable Nacny Garner MD Unavailable Isi Gunderson RN Unavailable Unavailable Eva Rothman MA Unavailable Unavailable Tracey Alfaro Unavailable Unavailable Chaka High MD Unavailable Unavailable Pricilla Rodriguez Unavailable Unavailable Thea Serrano RN Unavailable Unavailable Aurelio Ortega MD Unavailable Denis Tavares MD Unavailable Reason for Visit * Reason Comments Patient Reminder Call Encounter Details Date Type Department Care Team Description 05/07/2017 Telephone Center Rebeca Baca MA Patient Reminder Call Transplantation-Liver Transplant [facility] [address] [facility] [address] Social History Tobacco Use Types Packs/Day Years [...] impairment: No 05/15/2016 as of this encounter Miscellaneous Notes * Telephone Encounter - Rebeca Tatum MA - 05/07/2017 11:27 AM BICYCLE MECHANIC Called patient, spoke with his Louise, she confirmed appointment with Dr. Brock on 05/14/17. No outside records to obtain at this time. in this encounter Plan of Treatment Not on fileas of this encounter Visit Diagnoses Not on filein this encounter
--- OUTSIDE RECORDS SUMMARY | 2017-07-23 19:38 | XMS REPORT | Encounter Summary ---
Author Author [facility] Organization [facility] Address Unknown Phone Unavailable Care Team Providers Care Senior Java Architect Name Role Phone Maria Victoriajuan carlos Faizan LOPEZ PCP Regan Brock MD Unavailable Prerna Gray APRN Unavailable Micah Pizano MD Unavailable Rudy Almendarez MD Unavailable Unavailable Yamile Rodriguez PhD Unavailable Arpan Blakely MD Unavailable Lida Yang Unavailable Doctor, Miscellaneous Unavailable Unavailable Josy Sampson MD Unavailable Guille Han MD Unavailable Miranda Gomez POWER LINEMAN Unavailable Unavailable Rehana Arellano RN Unavailable Unavailable Hetal Mark MD Unavailable Luigi Callahan MD Unavailable Unavailable Bridget Yip MD Unavailable Harini Perez POWER LINEMAN Unavailable Unavailable Monalisa Cardoza POWER LINEMAN Unavailable Rah Franks MD Unavailable Mitul Rai MD Unavailable Monalisa Gtz POWER LINEMAN Unavailable Fabiana Rodriguez MD Unavailable Jared Adam MD Unavailable Thierry Garduno MD Unavailable Regan Gamble MD Unavailable Laly Ceja MD Unavailable Unavailable Faith Fields MD Unavailable Samantha Pruitt MD Unavailable Unavailable Андрей Griffin MD Unavailable Adam Paz MD Unavailable Jennie Bill MD Unavailable Delmy Rodriguez MD Unavailable Unavailable Stephanie FryN Unavailable Unavailable Kev Peters RN Unavailable [...] Unavailable Reason for Visit * Reason Comments Medication Dose Change Encounter Details Date Type Department Care Team Description 05/01/2017 Telephone Center for Stephanie Fry BSN Medication Dose Change Transplantation-Liver Transplant [facility] [address] [facility] [place] [address] Social History Tobacco Use Types Packs/Day Years [...] as of this encounter Miscellaneous Notes * Addendum Note - Stephanie Fry BSN - 05/03/2017 12:11 PM EXCEPTIONAL CHILDREN TEACHER ASSISTANT Addended by: STEPHANIE FRY on: 05/03/2017 12:11 PM Modules accepted: Orders * Telephone Encounter - Stephanie Fry BSN - 05/03/2017 11:59 AM EXCEPTIONAL CHILDREN TEACHER ASSISTANT Instructed pt to increase everolimus to 2mg BID. Will also add 1mg tacrolimus to medication to prevent rejection. Asked that pt repeat labs on 05/14 when he comes to see Dr. Brock. He v/u * Telephone Encounter - Stephanie Fry BSN - 05/01/2017 3:35 PM EXCEPTIONAL CHILDREN TEACHER ASSISTANT LVM for pt to call back regarding labs and dose change * Telephone Encounter - Stephanie Fry BSN - 05/01/2017 3:33 PM EXCEPTIONAL CHILDREN TEACHER ASSISTANT ----- Message from MARINA Bardales sent at 04/30/2017 4:03 AM EXCEPTIONAL CHILDREN TEACHER ASSISTANT -- --- Please increase everolimus to 2 mg BID, repeat trough level in 2 weeks in this encounter Plan of Treatment Not on fileas of this encounter Visit Diagnoses Not on filein this encounter
--- OUTSIDE RECORDS SUMMARY | 2017-07-23 19:38 | XMS REPORT | Encounter Summary ---
Author Author [facility] Organization [facility] Address Unknown Phone Unavailable Care Team Providers Care Fruit Picker Machine Operator Name Role Phone Maria Victoriajuan carlos Faizan LOPEZ PCP Regan Brock MD Unavailable Prerna Gray APRN Unavailable Micah Pizano MD Unavailable Rudy Almendarez MD Unavailable Unavailable Yamile Rodriguez PhD Unavailable Arpan Blakely MD Unavailable Lida Yang Unavailable Doctor, Miscellaneous Unavailable Unavailable Josy Sampson MD Unavailable Guille Han MD Unavailable Miranda Gomez SIGNAL INTELLIGENCE ANALYST Unavailable Unavailable Rehana Arellano RN Unavailable Unavailable Hetal Mark MD Unavailable Luigi Callahan MD Unavailable Unavailable Bridget Yip MD Unavailable Harini Perez SIGNAL INTELLIGENCE ANALYST Unavailable Unavailable Monalisa Cardoza SIGNAL INTELLIGENCE ANALYST Unavailable Rah Franks MD Unavailable Mitul Rai MD Unavailable Monalisa Gtz SIGNAL INTELLIGENCE ANALYST Unavailable Fabiana Rodriguez MD Unavailable Jared [...] Unavailable Fortino Hamm MD Unavailable Farhad Silva SIGNAL INTELLIGENCE ANALYST Unavailable Tonia David MD Unavailable Unavailable [...] Referred By Referred To Procedures Contact Contact Closed Specialty Orthopedic Surgery Diagnoses Regan Brock, Jose Manuel Douglas MD Services Recurrent pain [address] [facility] Required of right knee [address] [place], [place] [id number] [place], [place] Phone: [phone] Phone: Reason for Visit * Reason Comments Liver Recipient Follow-up Encounter Details Date Type Department Care Team Description 05/14/2017 Office Visit Center Regan Sandoval MD Recurrent pain of right Transplantation-Liver [address] knee (Primary Dx); Transplant Hep [id number] Hyperglycemia [address] [place] [address] [facility] [phone] [place] [address] Social History Tobacco Use Types Packs/Day Years Used Date Former Smoker 2 30 Quit: 05/28/1988 Smokeless Tobacco: Never Used Tobacco Cessation: Counseling Given: Yes Alcohol Use Drinks/Week oz/Week Comments No None since 2009 Sex Assigned at Date Recorded Not on file as of this encounter Last Filed Vital Signs Vital Sign Reading Time Taken Blood Pressure 136/56 05/14/2017 11:33 AM STRING [employer] SEALER Pulse 74 05/14/2017 11:33 AM STRING TOP SEAL[employer] Temperature 36.3 C (97.3 F) 05/14/2017 11:33 AM STRING TOP SEALER Respiratory Rate 14 05/14/2017 11:33 AM STRING TOP SEALER Oxygen Saturation 95% 05/14/2017 11:33 AM STRING TOP SEALER Inhaled Oxygen - - Concentration Weight 113.5 kg (250 lb 3.2 oz) 05/14/2017 11:33 AM STRING TOP SEALER Height 188 cm (6' 2") 05/14/2017 11:33 AM STRING TOP SEALER Body Mass Index 32.12 05/14/2017 11:33 AM STRING TOP SEALER in this encounter Functional Status Functional Status [...] this encounter Instructions * Patient Instructions - Zo Fry PEN[place]ie - 05/14/2017 11:00 AM STRING TOP SEALER F/u to schedule: F/u to schedule 1 yr Referral to ortho Today you were seen by Dr. Brock. We discussed the following: We recommend you taking some fish oil 1g twice daily to help your triglycerides Continue taking atorvastatin for your cholesterol You are due for a colonoscopy. If it looks ok, you will be done with them Get an EGD with colonoscopy to check for bleeding Make sure you are taking 1000 IU vit D and calcium daily in this encounter Progress Notes * Regan Brock MD - 05/14/2017 11:00 AM STRING TOP SEALER Formatting of this note may be different from the original. Date of Service: 05/14/2017 Oleg Hendricks is a 76 y.o. male Subjective: History of Present Illness Mr. Hendricks is an extremely pleasant 76-year-old gentleman, accompanied by his today. 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 His posttransplant course has been complicated by biliary stricture disease with prior stenting. He has developed chronic kidney disease unfortunately and has now been on hemodialysis since May of 2016. 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 He has had a right knee replacement in December 2014, with recurrent knee pain. He has been maintained on everolimus 4 mg twice daily and tacrolimus 1 mg twice daily, which has recently started for his immunosuppression. He presents today in followup. He was last seen on May 15, 2016. In the interim, he reports he has overall been doing well. In regard to his immunosuppression, tacrolimus was recently added to his everolimus regimen. He denies any symptoms or problems starting his medication. He has had some difficulties with increased phosphorus level. He reports he has had difficulty following a low phosphorus diet. He does drink carbonated beverages three to four times per day. He reports that he has continued problems with his right knee. He saw pain doctor who gave him injection that provided 24 hours of relief, but unfortunately his pain has recurred. He does report having some episodes of black stools previously that he attributed to use of Pepto-Bismol, which subsequently has improved, but stools have remained dark. He does report having hospitalization earlier in August, where he was hospitalized for a week for treatment of pneumonia. He does report receiving the flu immunization. Otherwise, he has been feeling well and without any specific complaints. Denies abdominal pain, chest pain, shortness of breath, nausea, vomiting, or other clinical changes. He reports compliance with his medication. (DOC:[id number]) Review of Systems Review of systems as above and per History of Present Illness; otherwise negative for 10 of 14 systems reviewed. Objective: amLODIPine (NORVASC) 10 mg tablet TAKE [...] 220 mg by mouth daily. Vitals: 05/14/17 1133 BP: 136/56 Pulse: 74 Resp: 14 Temp: 36.3 C (97.3 F) TempSrc: Oral SpO2: 95% Weight: 113.5 kg (250 lb 3.2 oz) Height: 188 cm (74") Body mass index is 32.12 kg/(m^2). Physical Exam General: The patient appeared to be in good spirits overall today. He is awake , alert, and oriented in no apparent distress. HEENT: Exam was PERRLA, EOMI. His oropharynx was clear with evidence of prior dental work noted. His scalp region was notable for some ulcerated areas that have been treated for skin malignancy per his report. Neck: Supple without lymphadenopathy. Chest: Clear to auscultation bilaterally. Cardiovascular: Regular rate and rhythm. Abdomen: Soft, nontender, nondistended with positive bowel sounds. His liver transplant incision is intact with no focal tenderness. No rebound or guarding present. No overt organomegaly present. Extremities: Revealed no cyanosis, clubbing, or edema. Neurologic: Exam was nonfocal. He appeared to be in good spirits. He did appear to have some difficulty getting on exam table due to his chronic right knee pain. (DOC:[id number]) Hospital Outpatient Visit on 05/14/2017 Component Date Value Ref Range Status White Blood Cells 05/14/2017 3.2* 4.5 - 11.0 K/UL Final RBC 05/14/2017 3.34* 4.4 - 5.5 M/UL Final Hemoglobin 05/14/2017 10.5* 13.5 - 16.5 GM/DL Final Hematocrit 05/14/2017 29.9* 40 - 50 % Final MCV 05/14/2017 89.6 80 - 100 FL Final MCH 05/14/2017 31.5 26 - 34 PG Final MCHC 05/14/2017 35.1 32.0 - 36.0 G/DL Final RDW 05/14/2017 16.6* 11 - 15 % Final Platelet Count 05/14/2017 210 150 - 400 K/UL Final MPV 05/14/2017 6.2* 7 - 11 FL Final Neutrophils 05/14/2017 71 41 - 77 % Final Lymphocytes 05/14/2017 19* 24 - 44 % Final Monocytes 05/14/2017 8 4 - 12 % Final Eosinophils 05/14/2017 1 0 - 5 % Final Basophils 05/14/2017 1 0 - 2 % Final Absolute Neutrophil Count 05/14/2017 2.30 1.8 - 7.0 K/UL Final Absolute Lymph Count 05/14/2017 0.60* 1.0 - 4.8 K/UL Final Absolute Monocyte Count 05/14/2017 0.30 0 - 0.80 K/UL Final Absolute Eosinophil Count 05/14/2017 0.00 0 - 0.45 K/UL Final Absolute Basophil Count 05/14/2017 0.00 0 - 0.20 K/UL Final Sodium 05/14/2017 138 137 - 147 MMOL/L Final Potassium 05/14/2017 3.8 3.5 - 5.1 MMOL/L Final Chloride 05/14/2017 98 98 - 110 MMOL/L Final Glucose 05/14/2017 140* 70 - 100 MG/DL Final Blood Urea Nitrogen 05/14/2017 62* 7 - 25 MG/DL Final Creatinine 05/14/2017 11.39* 0.4 - 1.24 MG/DL Final Calcium 05/14/2017 9.8 8.5 - 10.6 MG/DL Final Total Protein 05/14/2017 7.5 6.0 - 8.0 G/DL Final Total Bilirubin 05/14/2017 0.4 0.3 - 1.2 MG/DL Final Albumin 05/14/2017 4.3 3.5 - 5.0 G/DL Final Alk Phosphatase 05/14/2017 76 25 - 110 U/L Final AST (SGOT) 05/14/2017 10 7 - 40 U/L Final CO2 05/14/2017 25 21 - 30 MMOL/L Final ALT (SGPT) 05/14/2017 14 7 - 56 U/L Final Anion Gap 05/14/2017 15* 3 - 12 Final eGFR Non 05/14/2017 4* >60 mL/min Final Comment: The eGFR is not validated for use in drug dosing adjustments. Continue to use estimated creatinine clearance per dosing reference text. Please contact the Clinical Pharmacist for questions. eGFR 05/14/2017 5* >60 mL/min Final Comment: The eGFR is not validated for use in drug dosing adjustments. Continue to use estimated creatinine clearance per dosing reference text. Please contact the Clinical Pharmacist for questions. GGTP 05/14/2017 13 9 - 64 U/L Final Magnesium 05/14/2017 2.5 1.6 - 2.6 mg/dL Final Phosphorus 05/14/2017 7.6* 2.0 - 4.0 MG/DL Final Everolimus 05/14/2017 19.6* 3 - 10 ng/mL Final Comment: Target concentrations vary by type of transplant, patient response, concomitant immunosuppression and post-transplant time interval. Test was performed on whole blood using MaistorPlusS reagent and a Corby [employer]on AU analyzer. Anti HBc Total 05/14/2017 NEG Final Anti HBs 05/14/2017 <2.5 mIU/ml Final Comment: Hepatitis B Surface Antibody Reference Ranges >12.0 Positive 8.0-12.0 Equivocal <8.0 Negative HBsAg 05/14/2017 NEG Final Anti HCV 05/14/2017 NEG Final Tacrolimus 05/14/2017 7.7 2 - 15 NG/ML Final Comment: Target concentrations vary by type of transplant, patient response, concomitant immunosuppression and post-transplant time interval. Test was performed on whole blood using MaistorPlusS reagent and a Corby Rianna AU analyzer. Cholesterol 05/14/2017 146 <200 MG/DL Final Triglycerides 05/14/2017 185* <150 MG/DL Final HDL 05/14/2017 39* >40 MG/DL Final LDL 05/14/2017 74 <100 MG/DL Final VLDL 05/14/2017 37 MG/DL Final Non HDL Cholesterol 05/14/2017 107 MG/DL Final Comment: Calculated non-HDL Cholesterol (non-HDL-C) indirectly measures LDL-C, Lp(a), IDL-C, and VLDL-C. It is a surrogate marker for Apoprotein B. Goal should be less than 130 mg/dL. Vitamin D(25-OH)Total 05/14/2017 41.9 30 - 80 NG/ML Final Assessment and Plan: Impression: Mr. Hendricks is an extremely pleasant 76-year-old gentleman with history of previous liver transplant in December 2012, due to disease related to FELIX/alcohol concerns in the past. He now has developed chronic kidney disease , on hemodialysis and presents in followup. Assessment and plan: 1. Status post orthotopic liver transplant. Overall, his liver graft function appears to be stable. His recent liver function tests appeared to be normal from the labs from today. We are awaiting his immunosuppression level. Recent everolimus level has been mildly low. Tacrolimus has been added to his regimen. We will need to continue to monitor his labs. Anticipate every two to three months once we have achieved adequate drug levels with his immunosuppression. We will need to continue to closely follow for further changes. 2. Immunosuppression management. He has been maintained on everolimus 4 mg twice daily with a target level of 5-8. He has recently been restarted on tacrolimus at 1 mg twice daily. Last everolimus level was just below target at 2.9 in March 2017. Awaiting followup of his labs today to adjust his medication. Long-term risk of his immunosuppression has been discussed and we will need to continue to closely follow up for changes. 3. Chronic kidney disease. The patient has developed progressive renal failure and has been on dialysis since May 2016. He had been evaluated at the renal transplant at and was unfortunately determined not to be a candidate due to his comorbidities. We have discussed and reviewed this at length. I offered him a second opinion at another renal transplant center, which he did not wish to pursue at this time. We will need to continue to closely follow up for further changes. 4. History of skin cancers. The patient has had multiple skin cancers both basal cell and squamous cell carcinomas now. He follows closely with Dr. Franks in Dermatology. He will continue to have close monitoring for recurrent disease. 5. Elevated blood glucose level. There is concern that the patient has been prediabetic with mildly elevated hemoglobin A1c in the past as well as mild hyperglycemia. Recommend he continue to follow up with his primary care physician for monitoring. We will check a hemoglobin A1c with his labs today. 6. Dyslipidemia. The patient has had elevated LDL in the past above the target level of 70 with an LDL of 168 in June 2015. The patient's LDL has remained improved today with continued Lipitor therapy. His triglyceride levels were mildly elevated. We have recommended he start fish oil 1 g twice daily and continue to work on lifestyle modification factors, which we have discussed and reviewed. 7. Dark stools. He has had concerns for dark stools and possible melena in the past. He had been taking some Pepto-Bismol at that time. We have recommended an EGD and colonoscopy for further evaluation. He has chronic anemia, although slight trend down in his hemoglobin on recent lab checks, and will need to follow up for changes. 8. Right knee osteoarthritis. The patient has had previous right knee replacement and now has had recurrent pain. He received pain injection with failure to relieve his pain. We will refer the patient to Orthopedics for a second opinion to see if there are any additional options for therapy. 9. History of alcohol use. He reports he continues to abstain from alcohol at this time, which we discussed and reviewed with the patient today. 10. Bone health. He had a followup bone densitometry on June 15, 2016, showing borderline osteopenia. We anticipate a repeat in one to two years. Monitor his vitamin D level, which was adequate in October 2016, at the level of 39 and is due for repeat today. 11. Colon cancer screening. He has had previous tubular adenomas removed in October 2010, and is due for followup EGD, especially in light of change in his bowel appearance. 12. Immunization status. He reports he has received a flu immunization in the past. He previously was negative for hepatitis A and B, and need to check for seroconversion and recommend revaccination if remains nonimmune. He did receive a flu immunization previously. 13. Followup. We will plan to see the patient back in 12 months' time or sooner. We have asked him to call or notify us with any further changes or updates to his clinical condition. Thank you very much for allowing me to participate in the care of this very kind and interesting patient. Please do not hesitate to contact me at if I may be of further assistance in his care. Regan Brock MD (DOC:[id number]) (DOC:[id number]) in this encounter Plan of Treatment Name Priority Associated Diagnoses Order Schedule HEMOGLOBIN A1C Specimen Hyperglycemia Expected: 05/14/2017 in Lab (Approximate), Expires: 05/14/2018 Name Priority Associated Diagnoses Order Schedule AMB REFERRAL TO ORTHOPEDICS Routine Recurrent pain of right Ordered: knee as of this encounter Visit Diagnoses Diagnosis Recurrent pain of right knee - Primary Hyperglycemia Other abnormal glucose
--- OUTSIDE RECORDS SUMMARY | 2017-07-23 19:38 | XMS REPORT | Encounter Summary ---
Author Author [facility] Organization [facility] Address Unknown Phone Unavailable Care Team Providers Care Ic Design Engineer Name Role Phone Maria Victoriajuan carlos Faizan LOPEZ PCP Regan Brock MD Unavailable Prerna Gray APRN Unavailable Micah Pizano MD Unavailable Rudy Almendarez MD Unavailable Unavailable Yamile Rodriguez PhD Unavailable Arpan Blakely MD Unavailable Lida Yang Unavailable Doctor, Miscellaneous Unavailable Unavailable Josy Sampson MD Unavailable Giulle Han MD Unavailable Miranda Gomez OPTICAL SYSTEMS ENGINEER Unavailable Unavailable Rehana Arellano RN Unavailable Unavailable Hetal Mark MD Unavailable Luigi Callahan MD Unavailable Unavailable Bridget Yip MD Unavailable Harini Perez OPTICAL SYSTEMS ENGINEER Unavailable Unavailable Monalisa Cardoza OPTICAL SYSTEMS ENGINEER Unavailable Rah Franks MD Unavailable Mitul Rai MD Unavailable Monalisa Gtz OPTICAL SYSTEMS ENGINEER Unavailable Fabiana Rodriguez MD Unavailable Jared Adam [...] Details Date Type Department Care Team Description 05/11/2017 Orders Only Center for Zo Fry [facility] 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); [address] Disorder of bone density CENTER FOR and structure, [place] [address] Social History Tobacco Use Types Packs/Day Years [...] impairment: No 05/15/2016 as of this encounter Plan of Treatment Not on fileas of this encounter Results * 25-OH VITAMIN D (D2 + D3) (05/14/2017 10:52 AM) Component Value Ref Range Vitamin D(25-OH)Total 41.9 30 - 80 NG/ML Specimen Performing Laboratory Blood MAIN LAB [address] [place] [address] * LIPID PROFILE (05/14/2017 10:52 AM) Component [...] Specimen Performing Laboratory Blood MAIN LAB [address] [place] [address] * TACROLIMUS LEVEL(FK506) (05/14/2017 10:52 AM) Component Value Ref Range Tacrolimus 7.7 2 - 15 NG/ML Comment: Target concentrations vary by type of transplant, patient response, concomitant immunosuppression and post-transplant time interval. Test was performed on whole blood using TutorDudesS reagent and a Corby Clipcopia AU analyzer. Specimen Performing Laboratory Blood MAIN LAB [address] [facility] [place] [address] in this encounter Visit Diagnoses Diagnosis Liver replaced by transplant (HCC) - Primary Liver replaced by transplant Disorder of bone density and structure, unspecified
[2017-07-23] MEDS ORDERED: ACETAMINOPHEN 500 MG TAB (TYLENOL) PO ONE (19:45)
[2017-07-23 19:50] LABS: BASOPHILS % (AUTO) 0 % (0-10); EOSINOPHILS % (AUTO) 1 % (0-10); HEMATOCRIT 25 % (40-54); HEMOGLOBIN 7.9 G/DL (13.3-17.7); LYMPHOCYTES # (AUTO) 0.7 X 10^3 (1.0-4.0); LYMPHOCYTES % (AUTO) 16 % (12-44); MEAN CORPUSCULAR HEMOGLOBIN 26 PG (25-34); MEAN CORPUSCULAR HGB CONC 31 G/DL (32-36); MEAN CORPUSCULAR VOLUME 82 FL (80-99); MEAN PLATELET VOLUME 8.4 FL (7.4-10.4); MONOCYTES # (AUTO) 0.4 X 10^3 (0.0-1.0); MONOCYTES % (AUTO) 10 % (0-12); NEUTROPHILS # (AUTO) 2.9 X 10^3 (1.8-7.8); NEUTROPHILS % (AUTO) 73 % (42-75); PLATELET COUNT 232 10^3/uL (130-400); RED CELL DISTRIBUTION WIDTH 15.8 % (10.0-14.5); WHITE BLOOD COUNT 4.1 10^3/uL (4.3-11.0)
[2017-07-23] MEDS ORDERED: IBUPROFEN 800 MG (MOTRIN) TAB PO ONE (20:00)
--- NOTE | 2017-07-23 20:02 | ED Cough/URI ---
General Chief Complaint: Fever-Adult/Adol Stated Complaint: PNUEMONIA Source: patient, family History of Present Illness Date Seen by Provider: Jul 23, 2017 Time Seen by Provider: 19:24 Initial Comments PT ARRIVES VIA EMS FROM HOME PT HAS HAD PNEUMONIA FOR 6-8 WEEKS, AND HAS HAD 3 ROUNDS OF ANTIBIOTICS--[address] CHEST 1 WEEK AGO, AND SHOWED PNEUMONIA WAS STILL PRESENT HAS HAD NON-PRODUCTIVE COUGH COUGH FOR A COUPLE OF MONTHS BEGAN HAVING CHILLS TONIGHT AND HAD TEMP OF 102 JUST PRIOR TO ARRIVAL FAMILY REPORTED SOME CONFUSION TONIGHT PT IS ON DIALYSIS SUNDAY-SUNDAY - SUNDAY, AND HAD IT TODAY PT HAS ALSO HAD A LIVER TRANSPLANT 4 1/2 YEARS AGO HAS HAD ONGOING SHORTNESS OF BREATH , BUT IS NOT ANY DIFFERENT TONIGHT. SEEN BY DR. PIKE ON SUNDAY, NO CHANGE IN TREATMENT PCP: DR. PIKE Allergies and Home Medications Allergies Coded Allergies: No Known Drug Allergies (Unverified , 06/14/17) Home Medications Amlodipine Besylate 10 Mg Tablet, 10 MG PO DAILY, (Reported) LAST FILLED 11-09-14 #30 Aspirin 81 Mg Tablet.dr, 81 MG PO DAILY, (Reported) Atorvastatin Calcium 10 Mg Tablet, 10 MG PO DAILY, (Reported) Calcium Carbonate 600 Mg Tablet, 600 MG PO DAILY, (Reported) Cephalexin 500 Mg Capsule, 500 MG PO TID, (Reported) Doxazosin Mesylate 2 Mg Tablet, 2 MG PO DAILY, (Reported) Everolimus 0.5 Mg Tablet, 21 MG PO BID, (Reported) Niacinamide 500 Mg Tablet.er, 500 MG PO BID, (Reported) Pantoprazole Sodium 40 Mg Tablet.dr, 40 MG PO DAILY, (Reported) Tacrolimus 1 Mg Capsule, 1 MG PO BID, (Reported) Tamsulosin HCl 0.4 Mg Cap.er.24h, 0.4 MG PO DAILY, (Reported) Tramadol HCl 50 Mg Tablet, 50 MG PO DAILY, (Reported) Zinc Gluconate 50 Mg Tablet, 50 MG PO DAILY, (Reported) Constitutional: see HPI, chills, fever, weakness EENTM: no symptoms reported Respiratory: see HPI, cough, dyspnea on exertion, short of breath Cardiovascular: No chest pain, No palpitations, other (NO EDEMA AT THIS TIME-- HAD DIALYSIS TODAY) Gastrointestinal: no symptoms reported, No abdominal pain, No nausea, No vomiting Genitourinary: see HPI Musculoskeletal: no symptoms reported, No back pain Skin: no symptoms reported Psychiatric/Neurological: See HPI Hematologic/Lymphatic: No Symptoms Reported Immunological/Allergic: see HPI, transplant Past Eoepjxx-Aqwmkh-Bpkosm Hx Patient Social History Alcohol Use: Denies Use Recreational Drug Use: No Smoking Status: Former Smoker Type Used: Cigarettes Former Smoker, Quit: Dec 27, 1995 Recent Foreign Travel: No Contact w/Someone Who Travel: No Recent Hopitalizations: No Physical Abuse: No Sexual Abuse: No Mistreated: No Fear: No Immunizations Up To Date Tetanus Booster (TDap): More than 5yrs Date of Pneumonia Vaccine: Feb 26, 2008 Date of Influenza Vaccine: Mar 12, 2017 Seasonal Allergies Seasonal Allergies: Yes Surgeries History of Surgeries: Yes (SKIN CANCERS, HERNIA REPAIR; DIALYSIS SHUNT/AV- FISTULA RIGHT ARM) Surgeries: Abdominal, Dialysis, Joint Replacement, Liver Transplant, Orthopedic , Vascular Surgery Respiratory History of Respiratory Disorde: Yes Respiratory Disorders: Sleep Apnea, COPD, Emphysema Currently Using CPAP: Yes Cardiovascular History of Cardiac Disorders: Yes (STRESS TEST PRIOR TO LIVER TRANSPLANT) Cardiac Disorders: High Cholesterol, Hypertension Neurological History of Neurological Disord: Yes Neurological Disorders: Neuropathy Reproductive System Hx Reproductive Disorders: No Sexually Transmitted Disease: No HIV/AIDS: No Genitourinary History of Genitourinary Disor: Yes Genitourinary Disorders: Renal Failure, Dialysis Gastrointestinal History of Gastrointestinal Di: Yes (S/P LIVER TRANSPLANT) Gastrointestinal Disorders: Abdominal Hernia, Gastroesophageal Reflux, Liver Disease/Jaundice, Pancreatitis, Chronic Diarrhea, Esophageal Varices Musculoskeletal History of Musculoskeletal Dis: Yes Musculoskeletal Disorders: Arthritis, Chronic Back Pain Endocrine History of Endocrine Disorders: Yes Endocrine Disorders: Diabetes, Non-Insulin dep HEENT Loss of Vision: Denies Hearing Impairment: Hard of Hearing Cancer History of Cancer: Yes (skin cancers removed on head) Cancer: Skin Did You Recieve Any Treatments: Yes Type of Tx Receive: Surgical Intervention Psychosocial History of Psychiatric Problem: No Suicide Risk Score: 0 Integumentary History of Skin or Integumenta: No Blood Transfusions History of Blood Disorders: No Adverse Reaction to a Blood Tr: No Family Medical History Significant Family History: No Pertinent Family Hx Family Medial History: Arthritis 19 MOTHER BREAST CANCER 19 MOTHER Cardiovascular disease 19 FATHER EMPHYSEMA 19 FATHER FH: breast cancer FH: emphysema Physical Exam Vital Signs Vital Signs - First Documented 07/23/17 19:48 Temp 102.1 Pulse 86 Resp 24 B/P (MAP) 136/76 (96) Pulse Ox 97 Capillary Refill : General Appearance: WD/WN, no apparent distress, other (SMILING, TALKATIVE, DOES NOT APPEAR ILL OR TO BE IN ANY DISCOMFORT OR DISTRESS) HEENT: PERRL/EOMI Neck: normal inspection Respiratory: decreased breath sounds (IN BASES BILATERALLY) Cardiovascular: regular rate, rhythm, systolic murmur (1-2/6) Gastrointestinal: normal bowel sounds, non tender, soft Extremities: normal inspection, no pedal edema, no calf tenderness, normal capillary refill Neurologic/Psychiatric: 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, no motor/sensory deficits ( HX OF NEUROPATHY, BUT DOES HAVE SOME SENSATION TO FEET), alert, normal mood/ affect, oriented x 3, other (PT DOES NOT APPEAR CONFUSED DURING ER STAY) Skin: normal color, warm/dry Focused Exam Evaluation Lactate Level Laboratory Tests 07/23/17 19:34: Lactic Acid Level 1.62 Lactic Acid Level Laboratory Tests Test 07/23/17 19:34 Lactic Acid Level 1.62 MMOL/L (0.50-2.00) Progress/Results/Core Measures Suspected Sepsis SIRS Temperature: Pulse: Respiratory Rate: Laboratory Tests 07/23/17 19:34: White Blood Count 4.1L Blood Pressure / Mean: Laboratory Tests 07/23/17 19:34: Lactic Acid Level 1.62 Laboratory Tests 07/23/17 19:34: Creatinine 4.40#H, INR Comment 1.1, Platelet Count 232, Total Bilirubin 0.6 Results/Orders Lab Results Laboratory Tests Test 07/23/17 19:34 Range/Units White Blood Count 4.1 L 4.3-11.0 10^3/uL Red Blood Count 3.10 L 4.35-5.85 10^6/uL Hemoglobin 7.9 L 13.3-17.7 G/DL Hematocrit 25 L 40-54 % Mean Corpuscular Volume 82 80-99 FL Mean Corpuscular Hemoglobin 26 25-34 PG Mean Corpuscular Hemoglobin Concent 31 L 32-36 G/DL Red Cell Distribution Width 15.8 H 10.0-14.5 % Platelet Count 232 130-400 10^3/uL Mean Platelet Volume 8.4 7.4-10.4 FL Neutrophils (%) (Auto) 73 42-75 % Lymphocytes (%) (Auto) 16 12-44 % Monocytes (%) (Auto) 10 0-12 % Eosinophils (%) (Auto) 1 0-10 % Basophils (%) (Auto) 0 0-10 % Neutrophils # (Auto) 2.9 1.8-7.8 X 10^3 Lymphocytes # (Auto) 0.7 L 1.0-4.0 X 10^3 Monocytes # (Auto) 0.4 0.0-1.0 X 10^3 Eosinophils # (Auto) 0.0 0.0-0.3 10^3/uL Basophils # (Auto) 0.0 0.0-0.1 10^3/uL Prothrombin Time 13.8 12.2-14.7 SEC INR Comment 1.1 0.8-1.4 Activated Partial Thromboplast Time 38 H 24-35 SEC Sodium Level 140 135-145 MMOL/L Potassium Level 3.7 3.6-5.0 MMOL/L Chloride Level 96 L 98-107 MMOL/L Carbon Dioxide Level 31 21-32 MMOL/L Anion Gap 13 5-14 MMOL/L Blood Urea Nitrogen 13 7-18 MG/DL Creatinine 4.40 #H 0.60-1.30 MG/DL Estimat Glomerular Filtration Rate 13 BUN/Creatinine Ratio 3 Glucose Level 104 70-105 MG/DL Lactic Acid Level 1.62 0.50-2.00 MMOL/L Calcium Level 9.5 8.5-10.1 MG/DL Magnesium Level 1.9 1.8-2.4 MG/DL Total Bilirubin 0.6 0.1-1.0 MG/DL Aspartate Amino Transf (AST/SGOT) 16 5-34 U/L Alanine Aminotransferase (ALT/SGPT) 14 0-55 U/L Alkaline Phosphatase 71 40-136 U/L Total Protein 6.3 L 6.4-8.2 GM/DL Albumin 3.3 3.2-4.5 GM/DL Micro Results Microbiology 07/23/17 Influenza Types A,B Antigen (LUPILLO) - Final, Complete My Orders Orders - SHARLA DOW DO Cbc With Automated Diff (07/23/17 19:37) Comprehensive Metabolic Panel (07/23/17 19:37) Lactic Acid Analyzer (07/23/17 19:37) Blood Culture (07/23/17 19:37) Sputum Culture (07/23/17 19:37) Ua Culture If Indicated (07/23/17 19:37) Protime With Inr (07/23/17 19:37) Partial Thromboplastin Time (07/23/17 19:37) Chest 1 View, Ap/Pa Only (07/23/17 19:37) O2 (07/23/17 19:37) Saline Lock/Iv-Start (07/23/17 19:37) Saline Lock/Iv-Start (07/23/17 19:37) Ekg Tracing (07/23/17 19:37) Vital Signs Adult Sepsis Patie Q1H (07/23/17 19:37) Remove Rings In Anticipation O (07/23/17 19:37) Influenza A And B Antigens (07/23/17 19:37) Saline Lock/Iv-Start (07/23/17 19:37) Magnesium (07/23/17 19:37) Acetaminophen Tablet (Tylenol Tablet) (07/23/17 19:45) Ibuprofen Tablet (Motrin Tablet) (07/23/17 20:00) Cefepime Injection (Maxipime Injection) (07/23/17 21:15) Medications Given in ED Current Medications Medications Dose Ordered Sig/David Route Start Time Stop Time Status Last Admin Dose Admin Cefepime HCl 2000 mg/Sodium Chloride 50 ml @ 100 mls/hr ONCE ONCE IV 07/23/17 21:15 07/23/17 21:44 07/23/17 21:27 100 MLS/HR Ibuprofen 800 mg ONCE ONCE PO 07/23/17 20:00 07/23/17 20:01 DC 07/23/17 20:00 800 MG Vital Signs/I&O Vital Sign - Last 12Hours 07/23/17 19:48 Temp 102.1 Pulse 86 Resp 24 B/P (MAP) 136/76 (96) Pulse Ox 97 Capillary Refill : Progress Note : Progress Note NO COUGH OR DYSPNEA DURING ER STAY PT HAD NO COMPLAINTS DURING ER STAY ECG Initial ECG Impression Date: Jul 23, 2017 Initial ECG Impression Time: 20:25 Initial ECG Rate: 98 Initial ECG Rhythm: Normal Sinus Initial ECG Comparisson: No Previous ECG Available Diagnostic Imaging Comments CXR--INCREASED RUL INFILTRATE, COMPARED TO 06/28/17 Reviewed: Reviewed by Me Departure Communication (Admissions) Progress Notes 2111--CALLED [facility] DIRECT CALL. MESSAGE LEFT ON MACHINE 2124--CALLED [facility] DIRECT CALL, MESSAGE LEFT ON MACHINE 2129--[facility] CALLED, ON MED-SURG DIVERSION AND CANNOT ACCEPT PT 2131--CALLED [facility] --MESSAGE LEFT ON MACHINE 2147--[facility] CALLED, PAGING HOSPITALIST, DR. SWEENEY Impression Impression: Primary Impression: WORSENING PNEUMONIA Additional Impressions: ESRD (end stage renal disease) on dialysis S/P liver transplant Failure of outpatient treatment Disposition: SHT-TRM HOSP Condition: Stable Departure-Patient Inst. Referrals: RAYA PIKE DO (PCP/Family) Primary Care Physician SHARLA DOW DO Jul 23, 2017 20:02
[2017-07-23 20:07] LABS: INR 1.1 (0.8-1.4); PROTHROMBIN TIME PATIENT 13.8 SEC (12.2-14.7)
[2017-07-23] MEDS ORDERED: CEPH-507 PO (20:12)
[2017-07-23 20:17] LABS: ALBUMIN 3.3 GM/DL (3.2-4.5); BILIRUBIN,TOTAL 0.6 MG/DL (0.1-1.0); CALCIUM 9.5 MG/DL (8.5-10.1); CREATININE SERUM 4.4 MG/DL (0.60-1.30); MAGNESIUM 1.9 MG/DL (1.8-2.4); POTASSIUM 3.7 MMOL/L (3.6-5.0); TOTAL PROTEIN 6.3 GM/DL (6.4-8.2)
--- NOTE | 2017-07-23 20:26 | Diagnostic Imaging Report ---
EXAMINATION: Chest radiograph, portable AP view. DATE: 07/23/2017 at 2017 hours. INDICATION: 76-year-old male, shortness of breath, cough. COMPARISON: 06/28/2017. FINDINGS: There is interval increase in alveolar consolidation in the right upper lobe. Heart size and mediastinal contours are unchanged. There is no identified pneumothorax. There is a probable small right pleural effusion. IMPRESSION: 1. Interval increase in alveolar consolidation in the right upper lobe which may relate to pneumonia or other alveolar consolidative process. Recommend correlation clinically and followup to resolution. 2. Probable small right pleural effusion. Dictated by: Dictated on workstation # [id number]
[2017-07-23] MEDS ORDERED: CEFEPIME INJECTION 2,000 MG in NS (IVPB) 50 ML IV ONE (21:15)
[2017-07-23] MEDS ORDERED: VANCOMYCIN INJECTION 1,000 MG in NS (IVPB) 250 ML IV ONE (22:45)
[2017-07-23 22:58] VITALS: BP 126/64
== END 2017-07-23 23:02 | disposition short-term general hospital (02) ==
LOC: EDUNIT# 19:29 → ER 19:30
DX: J18.9 Pneumonia, unspecified organism (principal); I12.0 Hypertensive chronic kidney disease with stage 5 chronic kidney disease or end stage renal disease; E11.22 Type 2 diabetes mellitus with diabetic chronic kidney disease; N18.6 End stage renal disease; E11.40 Type 2 diabetes mellitus with diabetic neuropathy, unspecified; K21.9 Gastro-esophageal reflux disease without esophagitis; J43.9 Emphysema, unspecified; G47.30 Sleep apnea, unspecified; E78.00 Pure hypercholesterolemia, unspecified; Z85.828 Personal history of other malignant neoplasm of skin; Z94.4 Liver transplant status; Z87.891 Personal history of nicotine dependence; Z79.82 Long term (current) use of aspirin; Z98.890 Other specified postprocedural states; Z87.19 Personal history of other diseases of the digestive system
CPT/HCPCS: 36415; 71045; 80053; 83605; 83735; 85025; 85610; 85730; 87040; 87804

== ENCOUNTER → 2017-08-24 | Outpatient (CLI) | payer MEDICARE ==
[~2017-08-24] MED LIST changes: +CEPH-507 PO
--- NOTE | 2017-08-24 09:53 | Diagnostic Imaging Report ---
PROCEDURE: CT head without contrast. TECHNIQUE: Multiple contiguous axial images were obtained through the brain without the use of intravenous contrast. INDICATION: Lung carcinoma with weakness and dizziness. Comparison is made with prior head CT from 04/29/2010. The ventricles and sulci are appropriate for the patient's age. Moderate periventricular hypodensity is noted consistent with senescent change. No sulcal effacement is seen. There is no midline shift. No acute intra-axial or extra-axial hemorrhage is detected. Cisterns are patent. The visualized paranasal sinuses are clear. IMPRESSION: No acute intracranial process is detected. Dictated by: Dictated on workstation # [id number]
== END ==
LOC: RAD 09:27
PROVIDERS: ATTEND Family Medicine
DX: C34.90 Malignant neoplasm of unspecified part of unspecified bronchus or lung (principal)
CPT/HCPCS: 70450

== ENCOUNTER → 2017-08-29 | Outpatient (CLI) | payer MEDICARE ==
[~2017-08-29] VITALS: Ht 188 cm; Wt 99.8 kg
[2017-08-29 10:35] VITALS: BP 86/49
== END ==
LOC: SDC 09:37
PROVIDERS: ATTEND Family Medicine
DX: Z45.2 Encounter for adjustment and management of vascular access device (principal)

== ENCOUNTER 2017-09-19 06:39 | Emergency (ER) | payer MEDICARE ==
[~2017-09-19] VITALS: Ht 188 cm; Wt 108.9 kg
--- OUTSIDE RECORDS SUMMARY | 2017-09-19 06:48 | XMS REPORT | Continuity of Care Document ---
Author Author [employer] Organization [facility] Address Unknown Phone Unavailable Care Team Providers Care Floatman Name Role Phone [employer] Unavailable Unavailable Problems Medications Allergies, Adverse Reactions, Alerts Immunizations Results Vital Signs Encounters Location Location Details Encounter Type Encounter Number Reason For Visit Attending Provider ADM Date DC Date Status Source SPECIMEN [id number] NIDHI MCCORD 01/16/2017 01/16/2017 Active [facility] OP SURGERY [id number] JUAN MANE 01/26/20172016 Active [facility] SPECIMEN [id number] NIDHI MCCORD 03/20/2017 03/20/2017 Active [facility] OUTPATIENT [id number] ELSA LE 05/14/2017 05/14/2017 Active [facility] INPATIENT [id number] TERRIE BURNETT 08/31/20172017 Active [facility] CA SERIES [id number] [facility] [place] 09/03/2017 Active [facility] CA SERIES [id number] [facility] 09/18/2017 Active [facility] O Active [facility] OP SURGERY [id number] KARLY DAVALSO Active [facility] Procedures Plan of Care Social History Assessment and Plan Family History Advance Directives Functional Status
--- OUTSIDE RECORDS SUMMARY | 2017-09-19 06:49 | XMS REPORT | Encounter Summary ---
Author Author [facility] Organization [facility] Address Unknown Phone Unavailable Care Team Providers Care Tube Inspector Name Role Phone Regan Brock MD Unavailable Prerna Gray APRN Unavailable Micah Pizano MD Unavailable Rudy Almendarez MD Unavailable Unavailable Yamile Rodriguez PhD Unavailable Arpan Blakely MD Unavailable Lida Yang Unavailable Doctor, Miscellaneous Unavailable Unavailable Josy Sampson MD Unavailable Guille Han MD Unavailable Miranda Gomez FUR CLEANER Unavailable Unavailable Rehana Arellano RN Unavailable Unavailable Hetal Mark MD Unavailable Luigi Callahan MD Unavailable Unavailable Bridget Yip MD Unavailable Harini Perez FUR CLEANER Unavailable Unavailable Monalisa Cardoza FUR CLEANER Unavailable Rah Franks MD Unavailable Mitul Rai MD Unavailable Monalisa Gtz FUR CLEANER Unavailable Fabiana Rodriguez MD Unavailable Jared Adam [...] Unavailable Fortino Hamm MD Unavailable Farhad Silva FUR CLEANER Unavailable Tonia David MD Unavailable Unavailable Josué Arellano MD Unavailable Nancy Garner MD Unavailable Encounter Details Date Type Department Care Team Description 09/14/2017 Orders Only [facility] for [facility]antha Lagos RN History of liver Transplantation-Liver transplant (HCC) (Primary Transplant Hep Dx) [address] [facility] [place] [address] Social History Tobacco Use Types Packs/Day Years Used Date Former Smoker 2 30 Quit: 05/28/1988 Smokeless Tobacco: Never Used Alcohol Use Drinks/Week oz/Week Comments No None since 2009 Sex Assigned at Date Recorded Not on file as of this encounter Functional Status Functional Status Response Date of Assessment Does the patient have a hearing impairment: Yes 09/14/2017 Does the patient have a visual impairment: Yes 09/14/2017 Does the patient have impaired ambulation: Yes 09/14/2017 Does the patient have an activity of daily living Yes 09/14/2017 (ADL) impairment: Does the patient have an instrumental activity of Yes 09/14/2017 daily living (IADL) impairment: Cognitive Status Response Date of Assessment Does the patient have a cognitive impairment: No 09/14/2017 as of this encounter Plan of Treatment Name Priority Associated Diagnoses Order Schedule EVEROLIMUS BLOOD STAT History of liver Expected: 09/17/2017 transplant (HCC) (Approximate), Expires: 09/14/2018 TACROLIMUS LEVEL([id number]) STAT History of liver Expected: 09/17/2017 transplant (HCC) (Approximate), Expires: 09/14/2018 as of this encounter Visit Diagnoses Diagnosis History of liver transplant (HCC) - Primary Liver replaced by transplant
--- OUTSIDE RECORDS SUMMARY | 2017-09-19 06:49 | XMS REPORT | Clinical Summary ---
Author Author [facility] Organization [facility] Address Unknown Phone Unavailable Care Team Providers Care Urban Planning Teacher Name Role Phone Regan Brock MD Unavailable Prerna Gray APRN Unavailable Miach Pizano MD Unavailable Rudy Almendarez MD Unavailable Unavailable Yamile Rodriguez PhD Unavailable Arpan Blakely MD Unavailable Lida Yang Unavailable Doctor, Miscellaneous Unavailable Unavailable Josy Sampson MD Unavailable Guille Han MD Unavailable Miranda Gomez RADIOLOGIC TECHNOLOGY PROGRAM DIRECTOR Unavailable Unavailable Rehana Arellano RN Unavailable Unavailable Hetal Mark MD Unavailable Luigi Callahan MD Unavailable Unavailable Bridget Yip MD Unavailable Harini Perez RADIOLOGIC TECHNOLOGY PROGRAM DIRECTOR Unavailable Unavailable Monalisa Cardoza RADIOLOGIC TECHNOLOGY PROGRAM DIRECTOR Unavailable Rah Franks MD Unavailable Mitul Rai MD Unavailable Monalisa Gtz RADIOLOGIC TECHNOLOGY PROGRAM DIRECTOR Unavailable Fabiana Rodriguez MD Unavailable Jared [...] Unavailable Fortino Hamm MD Unavailable Farhad Silva RADIOLOGIC TECHNOLOGY PROGRAM DIRECTOR Unavailable Tonia David MD Unavailable Unavailable Josué Arellano MD Unavailable Nancy Garner MD Unavailable Source Comments Some departments are not documenting in the electronic medical record. If you do not see the information that you expected, contact Release of Information in the Health Information Management department at [phone] for further assistance in locating additional records.[facility] Allergies Active Allergy Reactions Severity Noted Date Comments Adhesive BLISTERS High 01/06/2013 Skin tears Current Medications Prescription Sig. Disp. Refills Start End Date Status Date doxazosin (CARDURA) 2 mg Take 1 Tab by mouth 30 Tab 0 06/03/19 Active tablet daily. 16 aspirin 81 mg chewable Take 1 Tab by mouth 30 Tab 5 07/26/19 Active tablet daily. 16 tamsulosin (FLOMAX) 0.4 TAKE ONE CAPSULE BY MOUTH 30 Cap 11 05/04/20 Active mg capsule DAILY AFTER BREAKFAST 16 atorvastatin (LIPITOR) 10 1 Tab daily. 90 Tab 3 06/27/19 Active mg tablet [address] TAKE ONE TABLET BY MOUTH 30 tablet 5 03/13/20 Active (PROTONIX) 40 mg tablet DAILY 17 oxybutynin XL (DITROPAN Take 5 mg by mouth daily. Active XL) 5 mg tablet escitalopram oxalate Take 10 mg by mouth Active (LEXAPRO) 10 mg tablet daily. albuterol-ipratropium Inhale 3 mL solution by Active (DUO-NEB, DUO-VENT) 0.5 nebulizer as directed mg-3 mg(2.5 mg base)/3 mL twice daily. nebulizer solution megestrol 400 mg/10 mL Take 10 mL by mouth every Active (10 mL) susp morning. metoclopramide (REGLAN) 5 Take 5 mg by mouth twice Active mg tablet daily. albuterol (PROAIR HFA) 90 Inhale 1 puff by mouth Active mcg/actuation inhaler into the lungs every 6 hours as needed for Wheezing or Shortness of Breath. Shake well before use. niacin ER (NIASPAN) 500 Take 500 mg by mouth at Active mg tablet bedtime daily. Take with food. darbepoetin karin Inject 100 mcg under the Active (ARANESP) 100 mcg/0.5 mL skin every 7 days. syrg sevelamer carbonate Take 1 tablet by mouth 90 tablet 1 09/14/19 Active (RENVELA) 800 mg tablet three times daily with 18 meals. apixaban (ELIQUIS) 5 mg Take 1 tablet by mouth 60 tablet 09/14/19 Active tablet twice daily. 18 guaiFENesin (ROBITUSSIN) Take 10 mL by mouth every 0 09/14/19 Active 100 mg/5 mL oral solution 4 hours as needed. For 18 cough, congestion everolimus Take 3 tablets by mouth 120 tablet 1 09/15/19 Active (immunosuppressive) twice daily. 18 (ZORTRESS) 0.5 mg tabletIndications: PREVENTION OF LIVER TRANSPLANT REJECTION tacrolimus (PROGRAF) 1 mg Take 1 capsule by mouth 09/15/19 Active capsule twice daily. 18 calcium carbonate Take 1,250 mg by mouth 09/01/19 Discontin (OS-RANJIT) 1250 mg tablet daily. 18 ued amLODIPine (NORVASC) 10 TAKE ONE TABLET BY MOUTH 30 Tab 10 04/10/20 09/01/19 Discontin mg tablet DAILY 16 18 ued traMADol (ULTRAM) 50 mg Take 1 Tab by mouth every 6 Tab 0 07/07/19 09/14/19 Discontin tablet 8 hours as needed for 17 18 ued Pain. zinc sulfate 220 mg (50 Take 220 mg by mouth 09/01/19 Discontin mg elemental zinc) daily. 18 ued capsule tacrolimus (PROGRAF) 1 mg Take 1 capsule by mouth 60 capsule 5 09/14/19 Discontin capsule twice daily. 17 18 ued cefdinir (OMNICEF) 300 mg Take 300 mg by mouth 09/01/19 Discontin capsule every 12 hours. 18 ued everolimus Take 2 mg by mouth twice 09/14/19 Discontin (immunosuppressive) daily. 18 ued (ZORTRESS) 0.5 mg tabletIndications: PREVENTION OF LIVER TRANSPLANT REJECTION everolimus Take 2 tablets by mouth 120 tablet 1 09/14/19 09/15/19 Discontin (immunosuppressive) twice daily. 18 18 ued (ZORTRESS) 0.5 mg tabletIndications: PREVENTION OF LIVER TRANSPLANT REJECTION tacrolimus (PROGRAF) 0.5 Take 1 capsule by mouth 60 capsule 1 09/15/19 Discontin mg capsule twice daily. 18 18 ued Active Problems Problem Noted Date Severe malnutrition (HCC) 09/03/2017 Acid-fast bacteria present 08/31/2017 Primary lung adenocarcinoma (HCC) 08/31/2017 ESRD (end stage renal disease) on dialysis (HCC) 08/31/2017 GERD (gastroesophageal reflux disease) 08/31/2017 Mycobacterial infection 08/31/2017 Overview: Added automatically from request for surgery [id number] Primary adenocarcinoma of lung (HCC) 08/31/2017 Overview: Added automatically from request for surgery [id number] Squamous cell carcinoma in situ 03/29/2017 Overview: Added automatically from request for surgery [id number] Squamous cell carcinoma 01/01/2017 Overview: Added automatically from request for surgery [id number] Mohs defect of right scalp 04/07/2016 Mohs [...] POD#4 -Immunosuppression (Start date/goal/therapeutic/rejection/delirium): FK 01/10/13. Goal -12. -CMV: D+/R-; Valcyte -PJP: Bactrim DS MWF [...] with medication access, 24hr home care or ocean transportation intermediary placement. -Follow up: Transplant Surgery in 2 [...] 08/02/2012 Overview: 01/06/13: Postop insulin gtt per [place] protocol. 01/07/13: Consult endocrine for DM management. [...] Encounters Date Type Specialty Care Team Description 09/14/2017 Orders Only Transplant Surgery Samantha Lagos RN History of liver transplant (HCC) (Primary Dx) 09/10/2017 Procedure Pass 09/07/2017 Documentation Oncology Emily Watters 09/06/2017 Anesthesia Omer Trevizo CRNA Event 09/06/2017 Procedure Pass 09/06/2017 Surgery Ananth Calvin MD BRONCHOSCOPY WITH LAVAGE 09/05/2017 Outpt. Infectious Diseases Conner Lynn MD Antibiotic Therapy 09/04/2017 Procedure Pass 09/02/2017 Procedure Pass 08/31/2017 [facility] Russel Yeager MD Acid-fast bacteria - Encounter Margi Kiser MD present 09/14/2017 Ari Wilson MD [place], Melissa L, MD 08/31/2017 Telephone Oncology Teri Hopkins RN Navigation Follow Up 08/27/2017 Ancillary Radiology Outpatient, Radiologist Orders 08/27/2017 Telephone Oncology Jamie Ventura MD Navigation Assessment 08/23/2017 Ancillary Radiology Outpatient, Radiologist Orders 08/22/2017 Ancillary Radiology Outpatient, Radiologist Orders 08/21/2017 Ancillary Radiology Outpatient, Radiologist Diagnosis unknown Orders 08/20/2017 Ancillary Radiology Outpatient, Radiologist Diagnosis unknown Orders 08/20/2017 Documentation Oncology Emily Watters 08/15/2017 Hospital Radiology Encounter 08/15/2017 Hospital Radiology Encounter 08/15/2017 Documentation Oncology Katie Campos RN 08/14/2017 Hospital Radiology Encounter 08/14/2017 Hospital Radiology Encounter 08/14/2017 Telephone Transplant Surgery Kev Peters, KIERSTEN Other 08/13/2017 Hospital Radiology Encounter 08/13/2017 Telephone Transplant Surgery Kev Peters, KIERSTEN Other (Pt status) 08/12/2017 Hospital Radiology Encounter 08/11/2017 Hospital Radiology Encounter 08/10/2017 Hospital Radiology Encounter 08/09/2017 Hospital Radiology Encounter 08/09/2017 Hospital Radiology Encounter 08/06/2017 Hospital Radiology Encounter 08/03/2017 Hospital Radiology Encounter 08/03/2017 Hospital Radiology Encounter 08/02/2017 Hospital Radiology Encounter 07/30/2017 Telephone Transplant Surgery Kev Peters, KIERSTEN Labs Only ( IS levels) 07/26/2017 Hospital Radiology Encounter 07/24/2017 Hospital Radiology Encounter 07/24/2017 Telephone Transplant Surgery Regan Brock MD Other ( call to [place]) 07/24/2017 Telephone Transplant Surgery Regan Brock MD Other ( cancellation) 07/23/2017 Hospital Radiology Encounter 07/19/2017 Documentation Transplant Surgery Rebeca Tatum MA 07/18/2017 Hospital Radiology Encounter 07/17/2017 Telephone Transplant Surgery Regan Brock MD Appointment Request (Urgent Appt) 07/12/2017 Telephone Transplant Surgery Regan Brock MD Medication Question 07/05/2017 Hospital Radiology Encounter 07/05/2017 Hospital Radiology Encounter 07/05/2017 Telephone Transplant Surgery Kev Peters, KIERSTEN Other ( current admission) 06/28/2017 Hospital Radiology Encounter 06/26/2017 Telephone Transplant Surgery Gregoria Núñez, KIERSTEN Labs Only from Last 3 Months Immunizations Name Dates [...] Vital Sign Reading Time Taken Blood Pressure 130/64 09/14/2017 1:06 PM CDT Pulse 88 09/14/2017 1:06 PM CDT Temperature 36.9 C (98.5 F) 09/14/2017 1:06 PM CDT Respiratory Rate 14 05/14/2017 11:33 AM [employer] Oxygen Saturation 94% 09/14/2017 1:06 PM CDT Inhaled Oxygen - - Concentration Weight 93.6 kg (206 lb 5.6 oz) 09/14/2017 11:24 AM CDT Height 188 cm (6' 2") 09/11/2017 7:25 AM CDT Body Mass Index 26.49 09/14/2017 11:24 AM CDT Plan of Treatment Health Maintenance Due Date Last Done Comments PHYSICAL (COMPREHENSIVE) 1947 EXAM PERTUSSIS VACCINE 1953 TETANUS VACCINE 09/29/1959 DILATED EYE EXAM 1960 FOOT EXAM 1960 SHINGLES VACCINE 2002 ABDOMINAL AORTIC ANEURYSM 09/29/2007 SCREENING MICROALBUMIN 07/31/2015 07/30/2014, 10/31/2012, 08/29/2012, Additional history exists PREVNAR/PNEUMOVAX (#2) 02/20/2016 02/19/2015 HBA1C 03/25/2016 09/24/2015, 07/21/2015, 05/18/2014, Additional history exists INFLUENZA VACCINE 02/25/2018 02/19/2015, 02/28/2013 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 BRONCHOSCOPY WITH BIOPSY- 09/06/2017 Mycobacterial infection no fluro needed- HIGH 2:15 PM CDT RISK FOLLOW PROTOCOL Special Needs Case is in the [place], not put in as a Red X for No or Green Check Jonathan for yes / Moved to a Red X, until Dr's office changes to a green check, when ready to be scheduled 09/05/17 (KP) BRONCHOSCOPY WITH LAVAGE 09/06/2017 Mycobacterial infection 2:15 PM CDT Special Needs Case is in the [place], not put in as a Red X for No or Green Check Jonathan for yes / Moved to a Red X, until Dr's office changes to a green check, when ready to be scheduled 09/05/17 () CONSULT IV THERAPY TEAM Routine 09/04/2017 11:49 AM CDT CONSULT IV THERAPY TEAM STAT 09/04/2017 5:03 AM CDT from Last 3 Months Results * HEMODIALYSIS DATE (09/14/2017 8:42 AM) Only the most recent of 7 results within the time period is included. Sarahi Kay RN 09/14/2017 11:36 AM 07 - Initiated HD treatment in [place] [address].Ordered is a 4 hour treatment with a UF goal of 2 Liters.Stat k+ level drawn and sent prior to start of tx since there were no results in 02 since 09/12.Right FA fistula accessed without difficulty and treatment running well.Dr. Alvarado paged. 1100 - Treatment complete.Pressure held on needle sites for about 10 minutes each site until hemostasis achieved and report called to primary RN.Net UF - 2 Liters.Patient tolerated well. * HEMODIALYSIS INPATIENT (09/14/2017 8:42 AM) Only the most recent of 7 results within the time period is included. Sarahi Kay RN 09/14/2017 11:36 AM 07 - Initiated HD treatment in [place] [address].Ordered is a 4 hour treatment with a UF goal of 2 Liters.Stat k+ level drawn and sent prior to start of tx since there were no results in since 09/12.Right FA fistula accessed without difficulty and treatment running well.Dr. Alvarado paged. 1100 - Treatment complete.Pressure held on needle sites for about 10 minutes each site until hemostasis achieved and report called to primary RN.Net UF - 2 Liters.Patient tolerated well. * POTASSIUM (09/14/2017 7:00 AM) Component Value Ref Range Potassium 3.6 3.5 - 5.1 MMOL/L Specimen Performing Laboratory Blood MAIN [facility] [address] [place] [address] * EVEROLIMUS BLOOD (09/14/2017 5:51 AM) Only the most recent of 7 results within the time period is included. Component Value Ref Range Everolimus 3.6 3 - 10 ng/mL Comment: Target concentrations vary by type of transplant, patient response, concomitant immunosuppression and post-transplant time interval.Test was performed on whole blood using [employer] QMS reagent and a Corby Aspen Evian AU analyzer. Specimen Performing Laboratory MA[facility] [address] [place] [address] * TACROLIMUS LEVEL(FK506) (09/14/2017 5:51 AM) Only the most recent of 7 results within the time period is included. Component Value Ref Range Tacrolimus 2.1 2 - 15 NG/ML Comment: Target concentrations vary by type of transplant, patient response, concomitant immunosuppression and post-transplant time interval.Test was performed on whole blood using [employer] QMS reagent and a Corby Ventura AU analyzer. Specimen Performing Laboratory [facility] [address] [place] [address] * PROTIME INR (PT) (09/14/2017 5:49 AM) Only the most recent of 15 results within the time period is included. Component Value Ref Range INR 1.6 (H) 0.8 - 1.2 Specimen Performing Laboratory [facility] [address] [place] [address] * CHEST SINGLE VIEW (09/12/2017 12:52 PM) Only the most recent of 3 results within the time period is included. Specimen Performing Laboratory [facility] RESULTS Impressions 1.Interval placement of a right IJ central venous catheter as described above. 2.Unchanged dense alveolar consolidation in the right upper lobe, compatible with the known adenocarcinoma, with patchy opacities in the lung bases, which may represent superimposed pneumonia. Approved by Jan Kim M.D. on 09/12/2017 2:49 PM By my electronic signature, I attest that I have personally reviewed the images for this examination and formulated the interpretations and opinions expressed in this report Finalized by Teresa Zendejas M.D. on 09/12/2017 3:20 PM. Dictated by Jan Kim M.D. on 09/12/2017 1:33 PM. Narrative CHEST SINGLE VIEW History: Hypoxia. Comparison: Chest radiograph September 04, 2017, CTA chest September 04, 2017 Findings: Interval placement of a right IJ central venous catheter with the tip overlying the cavoatrial junction. Heart size and pulmonary vasculature are within normal limits.Unchanged dense areas of alveolar consolidation in the right upper lobe with patchy consolidation in the lung bases. No pleural effusion or pneumothorax. Procedure Note Interface, Radiant Results - 09/12/2017 3:23 PM CDT CHEST SINGLE VIEW History: Hypoxia. Comparison: Chest radiograph September 04, 2017, CTA chest September 04, 2017 Findings: Interval placement of a right IJ central venous catheter with the tip overlying the cavoatrial junction. Heart size and pulmonary vasculature are within normal limits. Unchanged dense areas of alveolar consolidation in the right upper lobe with patchy consolidation in the lung bases. No pleural effusion or pneumothorax. IMPRESSION 1. Interval placement of a right IJ central venous catheter as described above. 2. Unchanged dense alveolar consolidation in the right upper lobe, compatible with the known adenocarcinoma, with patchy opacities in the lung bases, which may represent superimposed pneumonia. Approved by Jan Kim M.D. on 09/12/2017 2:49 PM By my electronic signature, I attest that I have personally reviewed the images for this examination and formulated the interpretations and opinions expressed in this report Finalized by Teresa Zendejas M.D. on 09/12/2017 3:20 PM. Dictated by Jan Kim M.D. on 09/12/2017 1:33 PM. * CBC (09/12/2017 6:36 AM) Only the most recent of 8 results within the time period is included. Component Value Ref Range White Blood Cells 4.6 4.5 - 11.0 K/UL RBC 2.69 (L) 4.4 - 5.5 M/UL Hemoglobin 7.0 (L) 13.5 - 16.5 GM/DL Hematocrit 20.8 (L) 40 - 50 % MCV 77.3 (L) 80 - 100 FL MCH 26.2 26 - 34 PG MCHC 33.8 32.0 - 36.0 G/DL RDW 19.5 (H) 11 - 15 % Platelet Count 269 150 - 400 K/UL MPV 6.1 (L) 7 - 11 FL Specimen Performing Laboratory [facility] [address] [place] [address] * PHOSPHORUS (09/12/2017 3:55 AM) Only the most recent of 3 results within the time period is included. Component Value Ref Range Phosphorus 7.6 (H) 2.0 - 4.0 MG/DL Specimen Performing Laboratory [facility] [address] [place] [address] * BASIC METABOLIC PANEL (09/12/2017 3:55 AM) Only the most recent of 2 results within the time period is included. Component Value Ref Range Sodium 137 137 - 147 MMOL/L Potassium 3.5 3.5 - 5.1 MMOL/L Chloride 100 98 - 110 MMOL/L CO2 26 21 - 30 MMOL/L Anion Gap 11 3 - 12 Glucose 93 70 - 100 MG/DL Blood Urea Nitrogen 27 (H) 7 - 25 MG/DL Creatinine 7.31 (H) 0.4 - 1.24 MG/DL Calcium 10.2 8.5 - 10.6 MG/DL eGFR Non 7 (L) >60 mL/min Comment: The eGFR is not validated for use in drug dosing adjustments.Continue to use estimated creatinine clearance per dosing reference text.Please contact the Clinical Pharmacist for questions. eGFR 9 (L) >60 mL/min Comment: The eGFR is not validated for use in drug dosing adjustments.Continue to use estimated creatinine clearance per dosing reference text.Please contact the Clinical Pharmacist for questions. Specimen Performing Laboratory [facility] [address] [place] [address] * 25-OH VITAMIN D (D2 + D3) (09/11/2017 10:00 AM) Component Value Ref Range Vitamin D(25-OH)Total 34.0 30 - 80 NG/ML Specimen Performing Laboratory [facility] [address] [place] [address] * NM PET SCAN TORSO (SKULL-THIGHS) (09/11/2017 8:47 AM) Specimen Performing Laboratory [facility] RESULTS Impressions 1. Redemonstration of hypermetabolic consolidation within the right upper lobe compatible with combination of biopsy-proven adenocarcinoma with superimposed pneumonia. 2. Hypermetabolic paratracheal lymph node concerning for regional lymph node metastasis. 3. Pleural-based medial right hemithorax FDG avid lesion concerning for pleural- based metastasis. Approved by Bienvenido Riggs D.O. on 09/11/2017 11:08 AM By my electronic signature, I attest that I have personally reviewed the images for this examination and formulated the interpretations and opinions expressed in this report Finalized by Armin Chaudhari M.D. on 09/11/2017 3:59 PM. Dictated by Bienvenido Riggs D.O. on 09/11/2017 9:31 AM. Narrative PET/CT NECK, CHEST, ABDOMEN AND PELVIS RADIOPHARMACEUTICAL:14.8 mCi F-18 Fluorodeoxyglucose (FDG) IV. TECHNIQUE:Beginning approximately 61 minutes after tracer administration, routine whole body PET/CT imaging was performed from the skull vertex to the upper thighs. PET images were reviewed in standard orthogonal projections. Low dose non-contrast CT imaging was performed for attenuation correction and localization purposes. BLOOD GLUCOSE LEVEL AT THE TIME OF RADIOPHARMACEUTICAL ADMINISTRATION:95 mg/ dl CLINICAL HISTORY:76-year-old male. Lung cancer. Adenocarcinoma. COMPARISON: CT 09/04/2017, 07/18/2017 FINDINGS: The current mean hepatic SUV is 2.05, maximum SUV 4.12. The current mean blood pool SUV is 1.95, maximum SUV 3.14. Physiologic uptake of F-18 Fluorodeoxyglucose (FDG) is seen within the brain, heart, kidneys, bladder, and bowel. Head/Neck: No suspicious hypermetabolic lesions are identified in these regions Chest: Previously noted paratracheal lymph node at the level of the thoracic inlet demonstrates maximum SUV of 5.07 (index 300, CT 93). Redemonstration of consolidative airspace opacities in the right upper lung with a maximum SUV of 6.15 (index 395). Increased FDG uptake within a pleural-based density at the medial aspect of the right lung demonstrating maximum SUV of 4.35 (indexed 379) . Slight progression of small bilateral pleural effusions with mild FDG uptake within the right pleural effusion with maximum SUV of 2.28 (index 467), concerning for malignant effusion. Redemonstration of mixed opacities in the bilateral lung bases with maximum SUV on the left at 1.93 and 2.07 on the right (index 526), likely representing mild pneumonitis. And subjacent dependent patchy airspace opacities likely representing atelectasis. Abdomen/Pelvis: No suspicious hypermetabolic lesions are seen within the abdomen or pelvis. Osseous Structures: No suspicious hypermetabolic osseous lesions are seen Additional significant low dose CT findings: Right internal jugular central venous catheter remains in place. Moderate bilateral gynecomastia again noted. Demonstration of coronary artery calcification and atherosclerotic calcification of the thoracic aorta and abdominal aorta and iliac arteries. Demonstration of prior anatomic liver transplant. Splenic granulomas again noted. Moderate bilateral renal cortical atrophy. Dystrophic calcifications within the prostate. The uncorrected PET images demonstrate no additional abnormality Procedure Note Interface, Radiant Results - 09/11/2017 4:02 PM CDT PET/CT NECK, CHEST, ABDOMEN AND PELVIS RADIOPHARMACEUTICAL: 14.8 mCi F-18 Fluorodeoxyglucose (FDG) IV. TECHNIQUE: Beginning approximately 61 minutes after tracer administration, routine whole body PET/CT imaging was performed from the skull vertex to the upper thighs. PET images were reviewed in standard orthogonal projections. Low dose non-contrast CT imaging was performed for attenuation correction and localization purposes. BLOOD GLUCOSE LEVEL AT THE TIME OF RADIOPHARMACEUTICAL ADMINISTRATION: 95 mg/dl CLINICAL HISTORY: 76-year-old male. Lung cancer. Adenocarcinoma. COMPARISON: CT 09/04/2017, 07/18/2017 FINDINGS: The current mean hepatic SUV is 2.05, maximum SUV 4.12. The current mean blood pool SUV is 1.95, maximum SUV 3.14. Physiologic uptake of F-18 Fluorodeoxyglucose (FDG) is seen within the brain, heart, kidneys, bladder, and bowel. Head/Neck: No suspicious hypermetabolic lesions are identified in these regions Chest: Previously noted paratracheal lymph node at the level of the thoracic inlet demonstrates maximum SUV of 5.07 (index 300, CT 93). Redemonstration of consolidative airspace opacities in the right upper lung with a maximum SUV of 6.15 (index 395). Increased FDG uptake within a pleural-based density at the medial aspect of the right lung demonstrating maximum SUV of 4.35 (indexed 379) . Slight progression of small bilateral pleural effusions with mild FDG uptake within the right pleural effusion with maximum SUV of 2.28 (index 467), concerning for malignant effusion. Redemonstration of mixed opacities in the bilateral lung bases with maximum SUV on the left at 1.93 and 2.07 on the right (index 526), likely representing mild pneumonitis. And subjacent dependent patchy airspace opacities likely representing atelectasis. Abdomen/Pelvis: No suspicious hypermetabolic lesions are seen within the abdomen or pelvis. Osseous Structures: No suspicious hypermetabolic osseous lesions are seen Additional significant low dose CT findings: Right internal jugular central venous catheter remains in place. Moderate bilateral gynecomastia again noted. Demonstration of coronary artery calcification and atherosclerotic calcification of the thoracic aorta and abdominal aorta and iliac arteries. Demonstration of prior anatomic liver transplant. Splenic granulomas again noted. Moderate bilateral renal cortical atrophy. Dystrophic calcifications within the prostate. The uncorrected PET images demonstrate no additional abnormality IMPRESSION 1. Redemonstration of hypermetabolic consolidation within the right upper lobe compatible with combination of biopsy-proven adenocarcinoma with superimposed pneumonia. 2. Hypermetabolic paratracheal lymph node concerning for regional lymph node metastasis. 3. Pleural-based medial right hemithorax FDG avid lesion concerning for pleural -based metastasis. Approved by Bienvenido Riggs D.O. on 09/11/2017 11:08 AM By my electronic signature, I attest that I have personally reviewed the images for this examination and formulated the interpretations and opinions expressed in this report Finalized by Armin Chaudhari M.D. on 09/11/2017 3:59 PM. Dictated by Bienvenido Riggs D.O. on 09/11/2017 9:31 AM. * PARATHYROID HORMONE (09/11/2017 3:50 AM) Component Value Ref Range PTH Hormone 190.3 (H) 10 - 65 PG/ML Specimen Performing Laboratory Blood MAIN LAB [address] [place] [address] * IONIZED CALCIUM (09/11/2017 3:50 AM) Component Value Ref Range Ionized Calcium 1.33 (H) 1.0 - 1.3 MMOL/L Specimen Performing Laboratory Blood MAIN LAB [address] [place] [address] * COMPREHENSIVE METABOLIC PANEL (09/11/2017 3:50 AM) Only the most recent of 11 results within the time period is included. Component Value Ref Range Sodium 137 137 - 147 MMOL/L Potassium 3.6 3.5 - 5.1 MMOL/L Chloride 100 98 - 110 MMOL/L Glucose 95 70 - 100 MG/DL Blood Urea Nitrogen 18 7 - 25 MG/DL Creatinine 5.67 (H) 0.4 - 1.24 MG/DL Calcium 10.2 8.5 - 10.6 MG/DL Total Protein 5.8 (L) 6.0 - 8.0 G/DL Total Bilirubin 0.3 0.3 - 1.2 MG/DL Albumin 2.9 (L) 3.5 - 5.0 G/DL Alk Phosphatase 57 25 - 110 U/L AST (SGOT) 13 7 - 40 U/L CO2 26 21 - 30 MMOL/L ALT (SGPT) 9 7 - 56 U/L Anion Gap 11 3 - 12 eGFR Non 10 (L) >60 mL/min Comment: The eGFR is not validated for use in drug dosing adjustments.Continue to use estimated creatinine clearance per dosing reference text.Please contact the Clinical Pharmacist for questions. eGFR 12 (L) >60 mL/min Comment: The eGFR is not validated for use in drug dosing adjustments.Continue to use estimated creatinine clearance per dosing reference text.Please contact the Clinical Pharmacist for questions. Specimen Performing Laboratory Blood MAIN LAB [address] [place] [address] * TRANSFUSE RBC'S NON-BLEEDING PT (09/08/2017 1:05 PM) Only the most recent of 2 results within the time period is included. Specimen Performing Laboratory Blood * HAPTOGLOBIN (09/08/2017 8:35 AM) Component Value Ref Range Haptoglobin 358 (H) 16 - 200 MG/DL Specimen Performing Laboratory Blood MAIN LAB [address] [place] [address] * LDH-LACTATE DEHYDROGENASE (09/08/2017 3:20 AM) Component Value Ref Range Lactate Dehydrogenase 169 100 - 210 U/L Specimen Performing Laboratory MAIN LAB [address] [place] [address] * PTT (APTT) (09/07/2017 12:53 PM) Only the most recent of 10 results within the time period is included. Component Value Ref Range APTT 74.6 (H) 21.0 - 39.0 SEC Specimen Performing Laboratory Blood MAIN LAB [address] [place] [address] * ECG-SCAN (09/06/2017 10:55 PM) Narrative Ordered by an unspecified provider. * ASPERGILLUS GALACTOMANN (09/06/2017 2:30 PM) Component Value Ref Range Aspergillus Galactomann 0.082 BAL Comment: Reference Value: Index value less than 0.5.- Interpretation:- Patients with an index value of greater than or equal to 0.5 are considered to be positive for galactomannan antigen.-The Platelia(TM) Aspergillus EIA package insert also recommends a new sample be collected from the patient for follow-up testing.-Patients with an index value of less than 0.5 are considered to be negative for galactomannan antigen.-A negative result may indicate that the patients result is below the detectable level of the assay.- Negative results do not rule out the diagnosis of Invasive Aspergillosis.-Pursuant to the package insert, repeat testing is recommended if the result is negative, but the disease is suspected. Due to the potential for environmental contamination when transferred to pour-off tubes, which can lead to false positive results, interpret positive results from samples provided in pour-off tubes with caution.-Results should be used in conjunction with clinical findings, and should not form the sole basis for a diagnosis or treatment decision.- The Platelia Aspergillus Galactomannan EIA is a product of [employer] and is FDA approved for in vitro diagnostic use. Testing Performed At: [facility] [place] [place] [address] CLIA ID: [id number] Specimen Performing Laboratory Bronchial Washing RLL REFERENCE LAB * PJP JIROVECI QUANT PCR (09/06/2017 2:30 PM) Component Value Ref Range PJP Jiroveci BAL PCR Not Detected Quant Unit: DNA copies/ml Assay Range: 84 copies/mL to 1x10e8 copies/mL Expected Value: Not Detected- The limit of quantitation (LOQ) is 84 copies/mL.- Pneumocystis jiroveci DNA detected below the LOQ will be reported as Detected: <84 copies/mL. This test was developed and its performance characteristics determined by [employer]. It has not been cleared or approved by the U.S. Food and Drug Administration.-Results should be used in conjunction with clinical findings, and should not form the sole basis for a diagnosis or treatment decision.- PCR tests are performed pursuant to a license agreement with [employer]. Testing Performed At: [place] [address] CLIA ID: [id number] Specimen Performing Laboratory Bronchial Washing RLL REFERENCE LAB * RVP VIRAL PANEL PCR (09/06/2017 2:30 PM) Component Value Ref Range Specimen Source BRONCHIAL ALVEOLAR LAVAGE Adenovirus NOT DETECTED Coronavirus 229E NOT DETECTED Coronavirus HKU1 NOT DETECTED Coronavirus NL63 NOT DETECTED Coronavirus OC43 NOT DETECTED Human Metapneumovirus NOT DETECTED Human NOT DETECTED Rhinovirus/ENTEROVIRUS Influenza A H1N1 2009 NOT DETECTED Influenza A H1 NOT DETECTED Influenza A H3 NOT DETECTED Influenza B NOT DETECTED Parainfluenza 1 NOT DETECTED Parainfluenza 2 NOT DETECTED Parainfluenza 3 NOT DETECTED Parainfluenza 4 NOT DETECTED RSV NOT DETECTED Bordetella Pertussis NOT DETECTED Chlamydophila Pneumoniae NOT DETECTED Mycoplasma Pneumoniae NOT DETECTED Specimen Performing Laboratory Nasal Wash MAIN LAB [address] [place] [address] * HERPES SIMPLEX PCR - NON-BLOOD (09/06/2017 2:30 PM) Component Value Ref Range Specimen, Herpes BRONCHIAL ALVEOLAR LAVAGE Herpes Simplex PCR HSV 1 and 2 NOT DETECTED [email or web address] HSV 1&2 Assay is a qualitative real-time PCR test for the direct detection and differentiation of HSV 1 and 2 DNA. This assay is FDA approved for testing cutaneous or mucocutaneous lesions from symptomatic patients. Performance on modifications of this test as well as other specimen types has been validated by the Department of Pathology and Laboratory Medicine at the [facility]. Specimen Performing Laboratory Bronchial Alveolar Lavage MAIN LAB [address] [place] [address] * GRAM STAIN (09/06/2017 2:30 PM) Component Value Ref Range Battery Name GRAM STAIN Specimen Description BRONCHIAL ALVEOLAR LAVAGE, RLL Special Requests NONE Gram Stain FEW NEUTROPHILS FEW COLUMNAR EPITHELIAL CELLS NO ORGANISMS SEEN Report Status FINAL 09/07/2017 Specimen Performing Laboratory Bronchial Alveolar MAIN LAB Lavage,RLL [address] [place] [address] * CULTURE-RESP,LOWER W/SENSITIVITY (09/06/2017 2:30 PM) Component Value Ref Range Battery Name LOWER RESP CULTURE Specimen Description BRONCHIAL ALVEOLAR LAVAGE, RLL Special Requests NONE Direct Gram Stain FEW NEUTROPHILS FEW COLUMNAR EPITHELIAL CELLS NO ORGANISMS SEEN Culture Light growth NO SIGNIFICANT TIAN Report Status FINAL 09/08/2017 Specimen Performing Laboratory Bronchial Alveolar MAIN LAB Lavage,RLL [address] [place] [address] * CMV QUANT PCR-FLUID (09/06/2017 2:30 PM) Component Value Ref Range Specimen, CMV BRONCHIAL ALVEOLAR LAVAGE CMV by PCR-fluid CMV DNA NOT DETECTED CMV Comment-Fluid This assay is an off label use of the [employer] RealTime Assay for detection of CMV in fluids and has not been approved by the US Food and Drug Administration. The performance characteristics were determined by the [facility] Laboratory.The lower limit of detection is 50IU/mL. Specimen Performing Laboratory Fluid - Bronchial [facility] MAIN LAB Alveolar Lavage [address] [place] [address] * CELL COUNT W/DIFF-FLUIDS (09/06/2017 2:30 PM) Component Value Ref Range White Blood Cells,Fluid 440 /UL Red Blood Cells,Fluid 800 /UL Segmented Neutrophils, CELLS TO DEGENERATED FOR DIFFERENTIAL/SLIDE % Fluid AVAILABLE/AC Fluid Source BRONCHIAL ALVEOLAR LAVAGE Pathology ATYPICAL CELL GROUPS PRESENT OF UNCERTAIN Interpretation,Fluid ETIOLOGY. RECOMMEND CORRELATION WITH PENDING CYTOLOGY FOR DEFINITIVE DIAGNOSIS. Pathologist Signature INTERPRETED BY CARMINE FRIEDMAN M.D. By the PATH SIGNATURE ABOVE, I attest that I have personally formulated the final interpretation expressed in this report and that the above diagnosis is based upon my examination of the slides and/or other material indicated in this report. Specimen Performing Laboratory Fluid - Bronchial K[facility] MAIN LAB Alveolar Lavage [address] [place] [address] * NON-ACCOUNTS PAYABLE PROFESSIONAL CYTOLOGY (BODY FLUIDS/TISSUE) (09/06/2017 10:40 AM) Component Value Ref Range Cytology [facility] [email or web address]) Department of Pathology and Laboratory Medicine [address] [place] [address] Surgical Pathology Office:[phone]:[phone] CYTOLOGY REPORT NAME: LIZ HENDRICKS CYTOLOGY #: [id number] MR #: [id number] ALT ID #: BILLING #: [id number] LOCATION: DATE OF PROCEDURE: 09/06/2017 AGE:76 SEX: M DATE RECEIVED: 09/07/2017 : 1940TIME RECEIVED:10:40 PHYSICIAN:ANANTH CALVIN MD DATE OF REPORT: 09/11/2017 [facility] MD DATE OF PRINTIN09/11/2017 Material Received: A: Bronchial Alveolar Lavage-RLL History: 76 year old male with 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 Gross Description: ( 1 ThinPrep, 1 DQ direct smear,1 GMS direct smear, 1 cell block) 10ml clear colorless fluid ################################################## ###################### Final Diagnosis: A. Bronchial Alveolar Lavage-RLL: Positive for malignant cells; consistent with lung adenocarcinoma. The Grocott stain is negative for Pneumocystis and other fungal organisms. Please also see concurrent surgical pathology report ([id number]). See comment. 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 Pursuant to the Dtp Operator Program at the [facility] Pathology Department, selected slides from this case have been concurrently reviewed by the following pathologist: Dr. Luana Lawler who agrees with the final diagnosis. Attestation: By this signature, I attest that I have personally formulated the final interpretation expressed in this report and that the above diagnosis is based upon my examination of the slides and/or other material indicated in this report. +++Electronically Signed Out By+++ pl/09/10/2017 Interpreted by: MD Herbert Rincon MD, PhDFellow Specimen Performing Laboratory [facility] LAB RESULTS * SURGICAL PATHOLOGY (09/06/2017 7:29 AM) Component Value Ref Range PATHOLOGY REPORT [facility] [email or web address] Department of Pathology and Laboratory Medicine [address] [place] [address] Surgical Pathology Office:[phone]:[phone] SURGICAL PATHOLOGY REPORT NAME: LIZ HENDRICKS SURG PATH #: [id number] MR #: [id number] SPECIMEN CLASS: SR BILLING #: [id number] ALT ID #:LOCATION: [id number] DATE OF PROCEDURE: 09/06/2017 AGE:76 SEX: M DATE RECEIVED: 09/07/2017 : 1940TIME RECEIVED:07:29 PHYSICIAN:ANANTH CALVIN MD DATE OF REPORT: 09/10/2017 COPY TO: EBENEZER BECERRA DATE OF PRINTIN09/10/2017 ################################################## ###################### Final Diagnosis: A. Lung tissue, "right lower lobe transbronchial biopsy", biopsy: No lesional tissue identified. Attestation: By this signature, I attest that I have personally formulated the final interpretation expressed in this report and that the above diagnosis is based upon my examination of the slides and/or other material indicated in this report. +++ +++ Ej Delgado M.D. ksw/09/07/2017 ################################################## ###################### Material Received: A: right lower lobe transbronchial biopsy History: 76-year-old male with history of adenocarcinoma of lung with lower lobe infiltrates concerning for lymphatic spread Gross Description: A. Received in formalin, labeled with the patient's name and "right lower lobe transbronchial biopsy" is a 0.5 x 0.2 x 0.1 cm aggregate of brown-mtz cylindrical and small soft tissue fragments. The specimen is filtered and entirely submitted in cassette A1. (tn) mtz/09/07/2017 Specimen Performing Laboratory [facility] RESULTS * CBC AND DIFF (09/05/2017 3:49 PM) Only the most recent of 6 results within the time period is included. Component Value Ref Range White Blood Cells 7.4 4.5 - 11.0 K/UL RBC 3.05 (L) 4.4 - 5.5 M/UL Hemoglobin 7.7 (L) 13.5 - 16.5 GM/DL Hematocrit 23.7 (L) 40 - 50 % MCV 77.7 (L) 80 - 100 FL MCH 25.1 (L) 26 - 34 PG MCHC 32.4 32.0 - 36.0 G/DL RDW 20.6 (H) 11 - 15 % Platelet Count 239 150 - 400 K/UL MPV 6.3 (L) 7 - 11 FL Neutrophils 90 (H) 41 - 77 % Lymphocytes 5 (L) 24 - 44 % Monocytes 4 4 - 12 % Eosinophils 1 0 - 5 % Basophils 0 0 - 2 % Absolute Neutrophil Count 6.70 1.8 - 7.0 K/UL Absolute Lymph Count 0.40 (L) 1.0 - 4.8 K/UL Absolute Monocyte Count 0.30 0 - 0.80 K/UL Absolute Eosinophil Count 0.10 0 - 0.45 K/UL Absolute Basophil Count 0.00 0 - 0.20 K/UL Specimen Performing Laboratory Blood MAIN LAB [address] [place] [address] * TYPE & CROSSMATCH (09/05/2017 3:49 PM) Component Value Ref Range Units Ordered 1 Crossmatch Expires 09/08/2017 Record Check FOUND ABO/RH(D) O NEG Antibody Screen NEG Electronic Crossmatch YES Unit Number [id number] Blood Component Type RBC,CPDA,LEUKO REDUCED Unit Division 0 Status OF Unit TRANSFUSED Transfusion Status OK TO TRANSFUSE Crossmatch Result COMPATIBLE,ELECTRONIC Specimen Performing Laboratory Blood MAIN LAB [address] [place] [address] * VANCOMYCIN RANDOM (09/05/2017 3:49 PM) Component Value Ref Range Vancomycin Random 11.6 MCG/ML Specimen Performing Laboratory Blood MAIN LAB [address] [place] [address] * US DOPPLER VENOUS W EXTRM BILAT (09/05/2017 1:11 PM) Specimen Performing Laboratory Bilateral [facility] RAD RESULTS Impressions No femoral/popliteal deep venous thrombosis in either lower extremity. Finalized by Amena Masterson M.D. on 09/05/2017 2:06 PM. Dictated by Amena Masterson M.D. on 09/05/2017 2:05 PM. Narrative Doppler lower extremity ultrasound Clinical Indication: Male, 76 years; immobility, bilateral ankle swelling Technique: Multiple grayscale sonographic images were obtained of both lower extremities with additional color and spectral Doppler acquisitions. Comparison: None Findings: The common femoral, upper saphenous, deep femoral, femoral, and popliteal veins of both lower extremities are patent and fully compressible without focal narrowing.Visualized portions of the trifurcation veins are patent bilaterally. There is mild subcutaneous edema in the left lower calf. No soft tissue mass or fluid collection is identified within visualized portions of the lower extremities. Procedure Note Interface, Radiant Results - 09/05/2017 2:09 PM CDT Doppler lower extremity ultrasound Clinical Indication: Male, 76 years; immobility, bilateral ankle swelling Technique: Multiple grayscale sonographic images were obtained of both lower extremities with additional color and spectral Doppler acquisitions. Comparison: None Findings: The common femoral, upper saphenous, deep femoral, femoral, and popliteal veins of both lower extremities are patent and fully compressible without focal narrowing. Visualized portions of the trifurcation veins are patent bilaterally. There is mild subcutaneous edema in the left lower calf. No soft tissue mass or fluid collection is identified within visualized portions of the lower extremities. IMPRESSION No femoral/popliteal deep venous thrombosis in either lower extremity. Finalized by Amena Masterson M.D. on 09/05/2017 2:06 PM. Dictated by Amena Masterson M.D. on 09/05/2017 2:05 PM. * CTA CHEST WO/W CONTRAST+POST IMPRESSION (09/04/2017 6:28 PM) Specimen Performing Laboratory [facility] RAD RESULTS Impressions 1.Small acute segmental pulmonary embolus within the lingula. No additional pulmonary emboli are identified. 2.Progression of consolidation throughout the dependent right upper and bilateral lower lobes. This likely represents a combination of the patient's biopsy-proven adenocarcinoma with progression of superimposed pneumonia. 3.Additional ill-defined and nodular opacities along the major fissures which likely represent areas of pneumonitis. 4.Persistent trace bilateral pleural effusions. 5.Mild emphysema. 6.Stable mildly enlarged right paratracheal/thoracic inlet lymph node which is indeterminate and may be reactive. No enlarging thoracic lymphadenopathy. 7.Coronary artery disease. These findings were discussed by telephone with Dr. Francesca ram at 6:56 PM on . By my electronic signature, I attest that I have personally reviewed the images for this examination and formulated the interpretations and opinions expressed in this report Finalized by Lazaro Richey M.D. on 09/04/2017 7:05 PM. Dictated by Rah Garg M.D. on 09/04/2017 6:41 PM. Narrative CTA CHEST CLINICAL HISTORY: 76-year-old male, tachycardia, oxygen desaturation, elevated D dimer, immobilized. TECHNIQUE: Multiple contiguous axial CT images were obtained through the chest following the administration of IV contrast. Post processing coronal and sagittal reconstruction images were made from the axial images.Image post-processing was obtained. COMPARISON: CT chest September 02, 2017. IV CONTRAST: Isovue-370 FINDINGS: Lower Neck: Unremarkable. Axilla, Mediastinum and Fletcher: No axillary lymphadenopathy. Stable mildly enlarged right thoracic inlet/paratracheal lymph node measuring 1.1 cm short axis (series 5 image 4). No additional enlarged thoracic lymph nodes are identified. Heart and Great Vessels: There is a small segmental pulmonary arterial filling defect within the inferior aspect of the left upper lobe/lingula (series 7 image 158). No additional pulmonary artery filling defects are identified. The heart is normal in size with moderate coronary arterial calcifications. No pericardial effusion. The thoracic aorta is normal in caliber with mild calcific atherosclerotic plaque. A right IJ central venous catheter has been placed, and terminates in the low SVC. Airway, Lungs and Pleura: The central airways are widely patent. Redemonstration of mild emphysema \\and scattered areas of pleural-parenchymal scarring throughout both lungs. There has been progression of consolidative airspace opacities throughout the dependent right upper and bilateral lower lobes with relative sparing of the left upper lobe and right middle lobe. Tiny ill-defined and nodular opacities along the right major fissure within the right middle lobe have developed (series 7 image 214). There are minimal irregular opacities along the left major fissure. Tiny bilateral pleural effusions persist. No pneumothorax. Upper Abdomen: Prior orthotopic liver transplant. Chest Wall and Osseous Structures: Moderate bilateral gynecomastia. Mild thoracic spondylosis. No destructive osseous lesions. Procedure Note Interface, Radiant Results - 09/04/2017 7:09 PM CDT CTA CHEST CLINICAL HISTORY: 76-year-old male, tachycardia, oxygen desaturation, elevated D dimer, immobilized. TECHNIQUE: Multiple contiguous axial CT images were obtained through the chest following the administration of IV contrast. Post processing coronal and sagittal reconstruction images were made from the axial images. Image post-processing was obtained. COMPARISON: CT chest September 02, 2017. IV CONTRAST: Isovue-370 FINDINGS: Lower Neck: Unremarkable. Axilla, Mediastinum and Fletcher: No axillary lymphadenopathy. Stable mildly enlarged right thoracic inlet/paratracheal lymph node measuring 1.1 cm short axis (series 5 image 4). No additional enlarged thoracic lymph nodes are identified. Heart and Great Vessels: There is a small segmental pulmonary arterial filling defect within the inferior aspect of the left upper lobe/lingula (series 7 image 158). No additional pulmonary artery filling defects are identified. The heart is normal in size with moderate coronary arterial calcifications. No pericardial effusion. The thoracic aorta is normal in caliber with mild calcific atherosclerotic plaque. A right IJ central venous catheter has been placed, and terminates in the low SVC. Airway, Lungs and Pleura: The central airways are widely patent. Redemonstration of mild emphysema \\and scattered areas of pleural-parenchymal scarring throughout both lungs. There has been progression of consolidative airspace opacities throughout the dependent right upper and bilateral lower lobes with relative sparing of the left upper lobe and right middle lobe. Tiny ill-defined and nodular opacities along the right major fissure within the right middle lobe have developed (series 7 image 214). There are minimal irregular opacities along the left major fissure. Tiny bilateral pleural effusions persist. No pneumothorax. Upper Abdomen: Prior orthotopic liver transplant. Chest Wall and Osseous Structures: Moderate bilateral gynecomastia. Mild thoracic spondylosis. No destructive osseous lesions. IMPRESSION 1. Small acute segmental pulmonary embolus within the lingula. No additional pulmonary emboli are identified. 2. Progression of consolidation throughout the dependent right upper and bilateral lower lobes. This likely represents a combination of the patient's biopsy-proven adenocarcinoma with progression of superimposed pneumonia. 3. Additional ill-defined and nodular opacities along the major fissures which likely represent areas of pneumonitis. 4. Persistent trace bilateral pleural effusions. 5. Mild emphysema. 6. Stable mildly enlarged right paratracheal/thoracic inlet lymph node which is indeterminate and may be reactive. No enlarging thoracic lymphadenopathy. 7. Coronary artery disease. These findings were discussed by telephone with Dr. Ma are at 6:56 PM on . By my electronic signature, I attest that I have personally reviewed the images for this examination and formulated the interpretations and opinions expressed in this report Finalized by Lazaro Richey M.D. on 09/04/2017 7:05 PM. Dictated by Rah Garg M.D. on 09/04/2017 6:41 PM. * IR CENTRAL VENOUS CATHETER (09/04/2017 4:45 PM) Specimen Performing Laboratory [facility] RAD RESULTS Impressions Successfulimage-guided placement of a non-cuffed tunneled central venous catheter as described above. I, Enoch Bustillos M.D, the attending radiologist, was present for the critical and yeh portions of the procedure with a midlevel, resident, and/or fellow participating.Overlapping portions were non yeh and I was immediately available.I interpret the critical and yeh portion of this procedure to have been needle access. @TT Approved by Guille Chatterjee M.D. on 09/04/2017 5:01 PM By my electronic signature, I attest that I have personally reviewed the images for this examination and formulated the interpretations and opinions expressed in this report Finalized by ENOCH BUSTILLOS on 09/05/2017 11:20 AM. Dictated by Guille Chatterjee M.D. on 09/04/2017 4:55 PM. Narrative Tunneled Non-cuffed Central Venous Catheter Placement Under Ultrasound and Fluoro Guidance CLINICAL INDICATION: Lung cancer MEDICATIONS:I was personally responsible for the administration of moderate sedation services during the procedure performed and I confirm requirements described in CPT section on moderate sedation were followed, including the use of an independent trained observer who had no other duties during the procedure.The total supervised sedation time was 13 minutes.See nursing log for complete details; the drugs utilized were: 1. Versed 2 mg IV 2. Fentanyl 100 ug IV ACCESS:Right internal jugular vein CONTRAST: None COMPLICATIONS: None CATHETER: 5 [place] double lumen Bard POWER PICC TECHNIQUE:Informed, written consent was obtained from the patient after explaining the risks and benefits of the procedure.With the patient in the supine position, the right neck and upper chest were prepped and draped in the usual sterile fashion. The skin and subcutaneous tissues were infiltrated with 2 % Lidocaine without epinephrine. Under direct ultrasound guidance, the right internal jugular vein was successfully cannulated using a micropuncture needle and an image was stored to PACS.An 0.018 wire was advanced through the needle into the vein and a 5.5 Nauruan peel-away sheath was advanced centrally over wire. Attention was turned to the creation of a subcutaneous tunnel.2% Lidocaine with epinephrine were infiltrated along a 10-12 cm tract caudal and lateral to the initial venotomy site.A second small dermatotomy was made.The tunneling device was used to create a subcutaneous tunnel, and the catheter was advanced through to the initial venotomy site. The catheter was cut to length. The introducer of the 5.5 Nauruan sheath was removed and the tunneled non-cuffed catheter was advanced through the sheath and positioned centrally under fluoroscopic guidance. The venotomy site was closed with Dermabond. The catheter was secured to the skin with 2-0 Ethilon per hospital policy.The patient tolerated the procedure well and remained in stable condition throughout the stay in the angiography suite.The catheter was flushed, heparinized, and a sterile dressing was applied. FINDINGS: 1. Patent right internal jugular vein by ultrasound. Needle entry was documented , and an image was stored to PACS. 2. Tip of the catheter terminates in the right atrium. Procedure Note Interface, Radiant Results - 09/05/2017 11:23 AM CDT Tunneled Non-cuffed Central Venous Catheter Placement Under Ultrasound and Fluoro Guidance CLINICAL INDICATION: Lung cancer MEDICATIONS: I was personally responsible for the administration of moderate sedation services during the procedure performed and I confirm requirements described in CPT section on moderate sedation were followed, including the use of an independent trained observer who had no other duties during the procedure. The total supervised sedation time was 13 minutes. See nursing log for complete details; the drugs utilized were: 1. Versed 2 mg IV 2. Fentanyl 100 ug IV ACCESS: Right internal jugular vein CONTRAST: None COMPLICATIONS: None CATHETER: 5 Nauruan double lumen Bard POWER PICC TECHNIQUE: Informed, written consent was obtained from the patient after explaining the risks and benefits of the procedure. With the patient in the supine position, the right neck and upper chest were prepped and draped in the usual sterile fashion. The skin and subcutaneous tissues were infiltrated with 2 % Lidocaine without epinephrine. Under direct ultrasound guidance, the right internal jugular vein was successfully cannulated using a micropuncture needle and an image was stored to PACS. An 0.018 wire was advanced through the needle into the vein and a 5.5 Nauruan peel-away sheath was advanced centrally over wire. Attention was turned to the creation of a subcutaneous tunnel. 2% Lidocaine with epinephrine were infiltrated along a 10-12 cm tract caudal and lateral to the initial venotomy site. A second small dermatotomy was made. The tunneling device was used to create a subcutaneous tunnel, and the catheter was advanced through to the initial venotomy site. The catheter was cut to length. The introducer of the 5.5 Nauruan sheath was removed and the tunneled non-cuffed catheter was advanced through the sheath and positioned centrally under fluoroscopic guidance. The venotomy site was closed with Dermabond. The catheter was secured to the skin with 2-0 Ethilon per hospital policy. The patient tolerated the procedure well and remained in stable condition throughout the stay in the angiography suite. The catheter was flushed, heparinized, and a sterile dressing was applied. FINDINGS: 1. Patent right internal jugular vein by ultrasound. Needle entry was documented, and an image was stored to PACS. 2. Tip of the catheter terminates in the right atrium. IMPRESSION Successful image-guided placement of a non-cuffed tunneled central venous catheter as described above. I, Enoch Bustillos M.D, the attending radiologist, was present for the critical and yeh portions of the procedure with a midlevel, resident, and/or fellow participating. Overlapping portions were non yeh and I was immediately available. I interpret the critical and yeh portion of this procedure to have been needle access. @TT Approved by Guille Chatterjee M.D. on 09/04/2017 5:01 PM By my electronic signature, I attest that I have personally reviewed the images for this examination and formulated the interpretations and opinions expressed in this report Finalized by ENOCH BUSTILLOS on 09/05/2017 11:20 AM. Dictated by Guille Chatterjee M.D. on 09/04/2017 4:55 PM. * CULTURE-BLOOD W/SENSITIVITY (09/04/2017 5:39 AM) Only the most recent of 4 results within the time period is included. Component Value Ref Range Battery Name BLOOD CULTURE Specimen Description BLOOD LEFT HAND Special Requests NONE Culture NO GROWTH 5 DAYS Report Status FINAL 09/10/2017 Specimen Performing Laboratory Blood MAIN [facility] [address] [place] [address] * POC GLUCOSE (09/04/2017 5:35 AM) Component Value Ref Range Glucose, POC 109 (H) 70 - 100 MG/DL Specimen Performing Laboratory MAIN [facility] [address] [place] [address] * LACTIC ACID (BG - RAPID LACTATE) (09/04/2017 5:35 AM) Component Value Ref Range Lactic Acid,BG 1.2 0.5 - 2.0 MMOL/L Specimen Performing Laboratory Blood MAIN LAB [address] [place] [id number] * TROPONIN-I (09/04/2017 5:35 AM) Component Value Ref Range Troponin-I 0.01 0.0 - 0.05 NG/ML Specimen Performing Laboratory Blood MAIN LAB [address] [place] [address] * D-DIMER (09/04/2017 5:35 AM) Component Value Ref Range D-Dimer 1,289 (H) <500 ng/mL FEU Comment: NOTE NEW REFERENCE RANGES Recent evidence supports the use of clinical pretest probability and age-adjusted D-Dimer reference ranges for evaluation of deep vein thrombosis and pulmonary embolism in patients greater than 50 years of age. AGE D-Dimer(FEU, ng/mL) 50 years or less <500 >50 years<Age x 10 ng/mL Specimen Performing Laboratory MAIN LAB [address] [place] [address] * MAGNESIUM (09/04/2017 5:35 AM) Only the most recent of 2 results within the time period is included. Component Value Ref Range Magnesium 1.9 1.6 - 2.6 mg/dL Specimen Performing Laboratory Blood MAIN [facility] [address] [place] [id number] * POC BLOOD GAS ARTERIAL (09/04/2017 5:30 AM) Component Value Ref Range PH-ART-POC 7.51 (H) 7.35 - 7.45 MXH7-RLS-LPB 38 35 - 45 MMHG PO2-ART-POC 55 (L) 80 - 100 MMHG Base Ex-ART-POC 8.0 MMOL/L O2 Sat-ART-POC 91.0 (L) 95 - 99 % Taxdjegyicl-IGS-DBV 30.7 (H) 21 - 28 MMOL/L Specimen Performing Laboratory MAIN LAB [address] [place] [id number] * POC SODIUM (09/04/2017 5:30 AM) Component Value Ref Range Sodium-POC 137 137 - 147 MMOL/L Specimen Performing Laboratory MAIN LAB [address] [place] [address] * POC POTASSIUM (09/04/2017 5:30 AM) Component Value Ref Range Potassium-POC 4.3 3.5 - 5.1 MMOL/L Specimen Performing Laboratory MAIN LAB [address] [place] [address] * POC IONIZED CALCIUM (09/04/2017 5:30 AM) Component Value Ref Range Ionized Calcium-POC 1.35 (H) 1.0 - 1.3 MMOL/L Specimen Performing Laboratory [facility] [address] [place] [address] * POC HEMATOCRIT (09/04/2017 5:30 AM) Component Value Ref Range Hemoglobin POC 12.6 (L) 13.5 - 16.5 GM/DL Hematocrit POC 37.0 (L) 40 - 50 % Specimen Performing Laboratory [facility] [address] [place] [address] * CT CHEST WO CONTRAST (09/02/2017 8:19 AM) Specimen Performing Laboratory [facility] RAD RESULTS Impressions 1. Redemonstration of consolidative right upper lobe opacities with associated cystic changes and air bronchograms. 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 2. Progression in bibasilar groundglass and consolidative opacities, consistent with increasing pneumonia. 3. Persistent trace bilateral pleural effusions. 4. Coronary artery disease. By my electronic signature, I attest that I have personally reviewed the images for this examination and formulated the interpretations and opinions expressed in this report Finalized by Gerard Sabillon M.D. on 09/02/2017 12:56 PM. Dictated by Toi Correa M.D. on 09/02/2017 8:[address] CHEST Clinical Indication:Male, 76 years old. Mycobacterium infection, pulmonary adenocarcinoma, hemodialysis, end-stage renal disease Technique: Multiple contiguous axial CT images were obtained through the chest without IV contrast. Post processing coronal and sagittal reconstruction images were made from the axial images. IV contrast: None. Comparison: Multiple prior CTs including 08/11/2017 FINDINGS: Evaluation of the mediastinum and fletcher, including the vasculature and for lymphadenopathy, is limited without the use of IV contrast. Lower Neck: Unremarkable Axilla, Mediastinum and Fletcher: Calcified right hilar granulomas. No thoracic lymphadenopathy. Heart and Great Vessels: Heart size is normal without pericardial effusion. At least mild coronary artery calcific dictation. Thoracic aorta is normal in caliber with mild plaque formation. Airway, Lungs and Pleura: Mild emphysematous changes with scattered pleural/ parenchymal scarring noted. There is redemonstration of consolidative right upper lobe airspace opacity with intervening cystic changes and air bronchograms. There has been interval progression of ill-defined groundglass and consolidative opacities throughout the lung bases. Trace bilateral pleural effusions again noted. No pneumothorax. Upper Abdomen: Postoperative changes of orthotopic liver transplant. Chest Wall and Osseous Structures: Moderate bilateral gynecomastia. Mild thoracic spondylosis without destructive osseous lesion. Procedure Note Interface, Radiant Results - 09/02/2017 12:[address] CHEST Clinical Indication: Male, 76 years old. Mycobacterium infection, pulmonary adenocarcinoma, hemodialysis, end-stage renal disease Technique: Multiple contiguous axial CT images were obtained through the chest without IV contrast. Post processing coronal and sagittal reconstruction images were made from the axial images. IV contrast: None. Comparison: Multiple prior CTs including 08/11/2017 FINDINGS: Evaluation of the mediastinum and fletcher, including the vasculature and for lymphadenopathy, is limited without the use of IV contrast. Lower Neck: Unremarkable Axilla, Mediastinum and Fletcher: Calcified right hilar granulomas. No thoracic lymphadenopathy. Heart and Great Vessels: Heart size is normal without pericardial effusion. At least mild coronary artery calcific dictation. Thoracic aorta is normal in caliber with mild plaque formation. Airway, Lungs and Pleura: Mild emphysematous changes with scattered pleural/ parenchymal scarring noted. There is redemonstration of consolidative right upper lobe airspace opacity with intervening cystic changes and air bronchograms. There has been interval progression of ill-defined groundglass and consolidative opacities throughout the lung bases. Trace bilateral pleural effusions again noted. No pneumothorax. Upper Abdomen: Postoperative changes of orthotopic liver transplant. Chest Wall and Osseous Structures: Moderate bilateral gynecomastia. Mild thoracic spondylosis without destructive osseous lesion. IMPRESSION 1. Redemonstration of consolidative right upper lobe opacities with associated cystic changes and air bronchograms. 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 2. Progression in bibasilar groundglass and consolidative opacities, consistent with increasing pneumonia. 3. Persistent trace bilateral pleural effusions. 4. Coronary artery disease. By my electronic signature, I attest that I have personally reviewed the images for this examination and formulated the interpretations and opinions expressed in this report Finalized by Gerard Sabillon M.D. on 09/02/2017 12:56 PM. Dictated by Toi Correa M.D. on 09/02/2017 8:58 AM. * [facility] CHEST EXTERNAL IMAGING (08/15/2017 12:15 AM) Only the most recent of 14 results within the time period is included. Narrative This order has been auto finalized and does not contain a result. * MRI HEAD EXTERNAL IMAGING (08/14/2017 12:15 AM) Narrative This order has been auto finalized and does not contain a result. * CULTURE-TB (AFB) (08/13/2017) Specimen Performing Laboratory [facility] OTHER OUTSIDE LAB * CT CHEST EXTERNAL IMAGING (08/11/2017) Only the most recent of 3 results within the time period is included. Narrative This order has been auto finalized and does not contain a result. * CT ABDOMEN EXTERNAL IMAGING (08/03/2017) Narrative This order has been auto finalized and does not contain a result. * CT ABD/PEL EXTERNAL IMAGING (07/05/2017 12:15 AM) Narrative This order has been auto finalized and does not contain a result. * GENERAL RAD MISC EXTERNAL IMAGING (07/05/2017) Narrative This order has been auto finalized and does not contain a result. from Last 3 Months
--- OUTSIDE RECORDS SUMMARY | 2017-09-19 06:52 | XMS REPORT | Encounter Summary ---
Author Author [facility] Organization [facility] Address Unknown Phone Unavailable Care Team Providers Care Physician Office Nurse Name Role Phone Regan Brock MD Unavailable Prerna Gray APRN Unavailable Micah Pizano MD Unavailable Rudy Almendarez MD Unavailable Unavailable Yamile Rodriguez PhD Unavailable Arpan Blakely MD Unavailable Lida Yang Unavailable Doctor, Miscellaneous Unavailable Unavailable Josy Sampson MD Unavailable Guille Han MD Unavailable Miranda Gomez MILIEU COUNSELOR Unavailable Unavailable Rehana Arellano RN Unavailable Unavailable Hetal Mark MD Unavailable Luigi Callahan MD Unavailable Unavailable Bridget Yip MD Unavailable Harini Perez MILIEU COUNSELOR Unavailable Unavailable Monalisa Cardoza MILIEU COUNSELOR Unavailable Rah Franks MD Unavailable Mitul Rai MD Unavailable Monalisa Gtz MILIEU COUNSELOR Unavailable Fabiana Rodriguez MD Unavailable Jared Adam [...] Unavailable Fortino Hamm MD Unavailable Farhad Silva MILIEU COUNSELOR Unavailable Tonia David MD Unavailable Unavailable Josué Arellano MD Unavailable Nancy Garner MD Unavailable Encounter Details Date Type Department Care Team Description 09/10/2017 Procedure Pass Medical Telemetry [address] [place] [address] Social History Tobacco Use Types Packs/Day Years [...] - Inhaled Oxygen - - Concentration Weight 96.6 kg (213 lb) 09/11/2017 7:25 AM CDT Height 188 cm (6' 2") 09/11/2017 7:25 AM CDT Body Mass Index 27.35 09/11/2017 7:25 AM CDT in this encounter Functional Status Functional Status Response Date of Assessment Does the patient have a hearing impairment: Yes 08/31/2017 Does the patient have a visual impairment: [...]
--- OUTSIDE RECORDS SUMMARY | 2017-09-19 06:52 | XMS REPORT | Encounter Summary ---
Author Author [facility] Organization [facility] Address Unknown Phone Unavailable Care Team Providers Care Mutual Fund Manager Name Role Phone Regan Brock MD Unavailable Prerna Gray APRN Unavailable Wendy Pizano MD Unavailable Rudy Almendarez MD Unavailable Unavailable Yamile Rodriguez PhD Unavailable Arpan Blakely MD Unavailable Lida Yang Unavailable Doctor, Miscellaneous Unavailable Unavailable Josy Sampson MD Unavailable Guille Han MD Unavailable Miranda Gomez YARD RIGGER Unavailable Unavailable Rehana Arellano RN Unavailable Unavailable Hetal Mark MD Unavailable Luigi Callahan MD Unavailable Unavailable Bridget Yip MD Unavailable Harini Perez YARD RIGGER Unavailable Unavailable Monalisa Cardoza YARD RIGGER Unavailable Rah Franks MD Unavailable Mitul Rai MD Unavailable Monalisa Gtz YARD RIGGER Unavailable Fabiana Rodriguez MD Unavailable Jared Adam MD Unavailable Thierry Garduno MD Unavailable Regan Gamble MD Unavailable Laly Ceja MD Unavailable Unavailable Faith Fields MD Unavailable Samantha Pruitt MD Unavailable Unavailable Андрей Griffin MD Unavailable Adam Paz MD Unavailable Jennie Bill MD Unavailable Delmy Rodriguez MD Unavailable Unavailable Zo FryN Unavailable Unavailable Kev Peters RN Unavailable Unavailable Zoila Peres Unavailable Unavailable Jonhny Archer MD Unavailable Mike Anderson Unavailable Unavailable Elizabeth Goetz Unavailable Unavailable Wilma Masterson Unavailable Unavailable Minerva Lima Unavailable Unavailable Elva Ceja RN Unavailable Unavailable Anthony Newman RN Unavailable Unavailable Mike, Wilma Unavailable Unavailable Jayla Wise Unavailable Unavailable Enoch Hawkins RN 2 Unavailable Daysi Pretty MA Unavailable Unavailable Fortino Hamm MD Unavailable Farhad Silva YARD RIGGER Unavailable Tonia David MD Unavailable Unavailable Josué Arellano MD Unavailable Nancy Garner MD Unavailable Reason for Referral * Status Reason Specialty Diagnoses / Referred By Referred To Procedures Contact Contact New Request Procedures Janelle Bruce/U APPT Monalisa Dior MD REQUEST: [facility] [address] DISEASES ([place]) [address] [place] [address] * Status Reason Specialty Diagnoses / Referred By Referred To Procedures Contact Contact New Request Procedures Janelle Bruce/U APPT Monalisa Dior MD REQUEST: [facility] [address] DISEASES ([place]) [address] [place] [address] * Status Reason Specialty Diagnoses / Referred By Referred To Procedures Contact Contact New Request Procedures Janelle Juarez/Nadir APPJacqueline Singh APRN REQUEST: GIOVANNI Snell [facility] [address] ([place]) [address] [place] [address] * Status Reason Specialty Diagnoses / Referred By Referred To Procedures Contact Contact New Request Procedures Janelle Juarez/Nadir APPJacqueline Singh APRN REQUEST: GIOVANNI Snell [facility] [address] ([place]) [address] [place] [address] Reason for Visit * Auth/Cert Status Reason Specialty Diagnoses / Referred By Referred To Procedures Contact Contact Diagnoses Lung Cancer vs TB Acid-fast bacteria present Encounter Details Date Type Department Care Team Description 08/31/2017 Hospital Medical Telemetry Russel Yeager MD Acid-fast bacteria - Encounter [address] present 09/14/2017 [place] [address] [place] [address] [phone] Margi Raman MD [address] [place] [address] [phone] Ari Valle MD [address] [place] [address] [place] [address] [phone] Monalisa Hart MD [address] [place] [address] [phone] Social History Tobacco Use Types Packs/Day Years [...] F) 09/14/2017 1:06 PM CDT Respiratory Rate - - Oxygen Saturation 94% 09/14/2017 1:06 PM CDT Inhaled Oxygen - - Concentration Weight 93.6 kg (206 lb 5.6 oz) 09/14/2017 11:24 AM CDT Height 189 cm (6' 2.41") 09/05/2017 8:00 AM CDT Body Mass Index 26.49 09/14/2017 11:24 AM CDT in this encounter Functional Status [...] impairment: No 09/14/2017 as of this encounter Discharge Instructions * Discharge Instr - Case Management - Jennifer Varela - 09/13/2017 12:49 PM CDT PT OT to evaluate and treat length of stay estimated to be less than 30 days * Patient Instructions - Krupa Moreno RN - 09/04/2017 1:25 PM CDT INTERVENTIONAL RADIOLOGY DISCHARGE INSTRUCTIONS TUNNELED CENTRAL VENOUS CATHETER PLACEMENT A tunneled central venous catheter (tunneled CVC) is a soft, flexible catheter that is inserted into a large vein, usually near your neck or collarbone, and runs under your skin to a large vein near your heart. The catheter is tunneled under your skin and the external portion of the catheter exits below your collarbone. Tunneling helps to prevent infection and stabilize the catheter, often allowing the catheter to remain in place for an extended period of time. This type of catheter may be used for the administration of fluids, IV medications and blood products as well as for drawing blood. POST-PROCEDURE ACTIVITY: A responsible adult must drive you home. If you receive sedation or anesthesia, you should not drive or operate heavy machinery or do anything that requires concentration for at least 24 hours. It is recommended that a responsible adult be with you until morning. Avoid arm and upper body movements that may pull on the catheter. Do not wear jewelry that can catch on the catheter and avoid clothing that rubs or pulls on your catheter. Never use scissors, pins, or other sharp objects near the catheter. Avoid bending or crimping the catheter. Always wash your hands before you touch the catheter and never touch the open end of the catheter if the cap is off. POST-PROCEDURE SITE CARE: Keep the bandage dry. Remove the small bandage near your neck after 24 hours. You may leave this open to air. Do not use ointments, creams or powders on this puncture site. The bandage over the catheter exit site must be kept clean and dry. It will be changed by the health care provider using the catheter. You may shower after [address] waterproof covering such as plastic wrap over the catheter when showering. If you are admitted to the hospital, you will be taught to wash with Chlorhexidine (CHG) soap. This soap reduces germs on your skin and lowers your risk of infection while in the hospital. It will keep harmful germs off your skin for 24 hours, so it is important to use this soap daily. The nursing staff will teach you how to shower with this soap. If you are unable to shower, they will assist you with using it during a bed bath. It is not necessary to continue using this soap at home. This soap can cause dry skin. We recommend using lotion that is compatible with CHG after each bath or shower. The nursing staff can provide you with our recommended lotion in the hospital. DIET/MEDICATIONS: You may resume your previous diet after the procedure. Avoid any foods or beverages containing alcohol for at least 24 hours after receiving sedation. Please see attached Medication Reconciliation Sheet for medication instructions. CALL THE DOCTOR IF: Bright red blood has soaked the bandage. You have severe pain at the catheter site, unrelieved by medication. Some soreness is to be expected for several days. You have signs of infection such as: Chills, fever greater than 101F, redness , warmth or swelling at the catheter site, red streaks leading from the area or pus draining from the area. You have swelling in your face, chest, neck or arm on the side where the catheter is. Your catheter is leaking, cracked or dislodged. Call 911 for severeproblems such as excessive bleeding, chest pain or shortness of breath. For any of the above symptoms or for problems or concerns related to the procedure, call for Sunday-Sunday 7-5. After-hours and weekends, please call [phone] and ask for the Interventional Bicycle Assembler on-call. in this encounter Medications at Time of Discharge Medication Sig. Disp. Refills Start Date End Date albuterol (PROAIR HFA) 90 Inhale 1 puff by mouth mcg/actuation inhaler into the lungs every 6 hours as needed for Wheezing or Shortness of Breath. Shake well before use. albuterol-ipratropium Inhale 3 mL solution by (DUO-NEB, DUO-VENT) 0.5 nebulizer as directed mg-3 mg(2.5 mg base)/3 mL twice daily. nebulizer solution apixaban (ELIQUIS) 5 mg Take 1 tablet by mouth 60 tablet 09/13/2017 tablet twice daily. aspirin 81 mg chewable Take 1 Tab by mouth 30 Tab 5 07/26/2015 tablet daily. atorvastatin (LIPITOR) 10 1 Tab daily. 90 Tab 3 06/27/2016 mg tablet darbepoetin karin Inject 100 mcg under the (ARANESP) 100 mcg/0.5 mL skin every 7 days. syrg doxazosin (CARDURA) 2 mg Take 1 Tab by mouth 30 Tab 0 06/03/2015 tablet daily. escitalopram oxalate Take 10 mg by mouth (LEXAPRO) 10 mg tablet daily. everolimus Take 3 tablets by mouth 120 tablet 1 09/14/2017 (immunosuppressive) twice daily. (ZORTRESS) 0.5 mg tabletIndications: PREVENTION OF LIVER TRANSPLANT REJECTION guaiFENesin (ROBITUSSIN) Take 10 mL by mouth every 0 09/13/2017 100 mg/5 mL oral solution 4 hours as needed. For cough, congestion megestrol 400 mg/10 mL Take 10 mL by mouth every (10 mL) susp morning. metoclopramide (REGLAN) 5 Take 5 mg by mouth twice mg tablet daily. niacin ER (NIASPAN) 500 Take 500 mg by mouth at mg tablet bedtime daily. Take with food. oxybutynin XL (DITROPAN Take 5 mg by mouth daily. XL) [address] TAKE ONE TABLET BY MOUTH 30 tablet 5 03/13/2017 (PROTONIX) 40 mg tablet DAILY sevelamer carbonate Take 1 tablet by mouth 90 tablet 1 09/13/2017 (RENVELA) 800 mg tablet three times daily with meals. tacrolimus (PROGRAF) 1 mg Take 1 capsule by mouth 09/14/2017 capsule twice daily. tamsulosin (FLOMAX) 0.4 TAKE ONE CAPSULE BY MOUTH 30 Cap 11 2015 mg capsule DAILY AFTER BREAKFAST as of this encounter Progress Notes * Irasema Acuna, ALICIA-STAIN SPRAYER - 09/14/2017 2:04 PM CDT Formatting of this note may be different from the original. Pulmonary Progress Note Name: Liz Hendricks Today's Date: 09/14/2017 Admission Date: 08/31/2017 LOS: 14 days Impression: Mr. 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 Acute hypoxic respiratory failure ? Max requirement of 11L ---> down to 4L this AM ? Bilateral lower lobe consolidations on CTA (09/04/17) ? spiked a temp to 101 on 09/03. Patient reports was vomiting episode prior to O2 needs starting- ?aspiration. ? small acute segmental PE in the lingula. Normally it is unlikely that this small PE could cause this degree of hypoxemia, however this is in one of the few areas of normal lung for him so this may account for the degree of hypoxemia we see 2. Adenocarcinoma of the lung- biopsy consistent with adenocarcinoma with lepidic pattern of growth ? onc has requested further testing on biopsy samples including PDL1, ALK, ROS1, EGFR ? onc recommending PET CT for staging ? BAL (09/06/17) + malignant cells 3. Mycobacterium Avium Intracellularae ? AFB sputum here negative x 3 ? bronchoscopy with BAL and TBB (09/07/17) - hyperdynamic airways with slight erythema noted BAL: RBC 800; WBC 440; cells too degenerated for differentiations; atypical cells present Gram stain and bacterial cultures negative 4. Pulmonary infiltrate ? Bibasilar consolidation concerning for superimposed pneumonia ? Reported episode of vomiting prior to becoming febrile 09/03 - ? Aspiration pneumonia ? Zosyn completed 09/10/17 ? Sputum AFB neg x 3 ? PET/CT with hypermetabolic RUL consolidation with hypermetabolic paratracheal LN, and hypermetabolic pleural-based medial right hemithorax suggestive of pleural metastasis 5. OLT (2012) ? Tacrolimus and everolimus daily ? Follows with Dr. Brock 6. ESRD s/t immunosuppression ? T/TR/Sat dialysis 7. PE ? CTA Chest (09/04/17) w/ small acute segmental pulmonary embolus within the lingula ? Continue Apixaban 8. MARGARET ? PSG approximately 10 years ago at [facility] ? Auto-titrating CPAP (max IPAP 11) ? DME: [facility] ? Transitioned to BiPAP 14/09 d/t increased O2 requirements 09/06 during decompensation event ? 09/12 intolerant to home CPAP 11 w/ 5L bleed in with desaturation Recommendations: BAL RLL cytology + for malignant cells concerning for lower lobe infiltrates malignant in nature and contributing to increased O2 requirements and chronic mucus production ? Cultures negative to date with worsening sputum production and ongoing 5L O2 requirement ? Concern for progression of FLORENCE d/t immunosuppression Ongoing difficult with airway clearance despite Q4 Albuterol followed by Flutter valve --> recommend continued IS and Flutter valve on D/C ? Discussed with patient that mucus may be originating from his cancer cells and therefore will likely not diminish, clearance is important to minimize risk of mucus plugging Tolerated auto-titrating CPAP overnight with mean pressure of 11.5 and residual AHI of 12, indicating inadequacy of pressure. Will proceed with Auto- titrating CPAP 5-20 cm H2O upon discharge Above plan discussed with attending physician, Dr. Cha. Irasema Acuna APRN-STAIN SPRAYER Pager [phone] Subjective Slept well on auto-titrating CPAP last night with minimal interruptions. In dialysis on exam. Continues to have significant mucus production with minimal clearance. Denies any shortness of breath or wheeze. Review of Systems Constitutional: Negative for chills, diaphoresis and fever. Respiratory: Positive for cough and sputum production. Negative for shortness of breath. Gastrointestinal: Negative for diarrhea, nausea and vomiting. All other systems reviewed and are negative. Objective Vital Signs: Last Filed Vital Signs: 24 Hour Range BP: 130/64 (09/14 1306) Temp: 36.9 C (98.5 F) (09/14 1306) Pulse: 88 (09/14 1306) Respirations: 20 PER MINUTE (09/14 1306) SpO2: 94 % (09/14 130) O2 Delivery: Nasal Cannula (09/14 130) SpO2 Pulse: 75 (09/14 1123) BP: (120-149)/(51-67) Temp: [36.6 C (97.9 F)-37.2 C (98.9 F)] Pulse: [67-88] Respirations: [16 PER MINUTE-22 PER MINUTE] SpO2: [89 %-97 %] O2 Delivery: Nasal Cannula Intake/Output Summary: (Last 24 hours) Intake/Output Summary (Last 24 hours) at 09/14/17 1512 Last data filed at 09/14/17 1100 Gross per 24 hour Intake 540 ml Output 2311 ml Net -1771 ml General: Awake, in no acute distress. HEENT: NC/AT, sclera non-icteric, moist mucus membranes. CV: regular rhythm, normal rate, no murmurs. Lungs: rhonchi bilaterally Abdomen: soft, non-tender, non-distended, normo-active bowel sounds Extremities: no edema, pedal pulses 2 (+) bilaterally Neuro: no focal deficits Skin: no rashes Lab Review Recent CBC Recent Labs 09/12/17 0355 09/12/17 0636 09/13/17 0426 09/14/17 0549 WBC -- 4.6 -- -- HGB -- 7.0* -- -- HCT -- 20.8* -- -- PLTCT -- 269 -- -- MCV -- 77.3* -- -- INR 1.7* -- 1.7* 1.6* Recent CMP Recent Labs 09/12/17 0355 09/14/17 0700 NA 137 -- K 3.5 3.6 CL 100 -- CO2 26 -- GAP 11 -- BUN 27* -- CR 7.31* -- GFR 7* -- GLU 93 -- CA 10.2 -- PO4 7.6* -- Other labs Pertinent labs reviewed Point of Care Testing (Last 24 hours) Radiology and other Diagnostics Review: No new radiology to review Medications Scheduled IV PRN albuterol 0.5% (PROVENTIL; VENTOLIN) nebulizer solution 2.5 mg 2.5 mg Inhalation QID & PRN apixaban (ELIQUIS) tablet 5 mg 5 mg Oral BID aspirin chewable tablet 81 mg 81 mg Oral QDAY atorvastatin (LIPITOR) tablet 10 mg 10 mg Oral QDAY doxazosin (CARDURA) tablet 2 mg 2 mg Oral QDAY escitalopram oxalate (LEXAPRO) tablet 10 mg 10 mg Oral QDAY everolimus (immunosuppressive) (ZORTRESS) tablet 1.5 mg 1.5 mg Oral BID ipratropium bromide (ATROVENT) 0.02 % nebulizer solution 0.5 mg 0.5 mg Inhalation QID & PRN oxybutynin XL (DITROPAN XL) tablet 10 mg 10 mg Oral QHS pantoprazole DR (PROTONIX) tablet 40 mg 40 mg Oral QDAY(21) sevelamer carbonate (RENVELA) tablet 800 mg 800 mg Oral TID w/ meals tacrolimus (PROGRAF) capsule 1 mg 1 mg Oral BID acetaminophen Q4H PRN, guaiFENesin Q4H PRN, ondansetron Q6H PRN, sodium chloride 0.9% (NS) IP Dialysis PRN, sodium chloride 0.9% (NS) IP Dialysis PRN, sodium chloride 0.9% (NS) IP Dialysis PRN * Faith Jordan DO - 09/14/2017 2:04 PM CDT Formatting of this note may be different from the original. General Progress Note Name: Liz Hendricks Today's Date: 09/14/2017 Admission Date: 08/31/2017 LOS: 14 days Assessment/Plan: Active Problems: Liver transplanted (HCC) Immunosuppression (HCC) Acid-fast bacteria present Primary lung adenocarcinoma (HCC) ESRD (end stage renal disease) on dialysis (HCC) GERD (gastroesophageal reflux disease) Severe malnutrition (HCC) Mycobacterial infection Primary adenocarcinoma of lung (HCC) Liz Hendricks is a 76 y.o. 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 He had PET scan today that demonstrated right upper lobe enhancement and paratracheal lymph node, as well as pleural-based enhancement. Patient failed trial back on home CPAP. Patient to have auto-titrate CPAP at facility. He is not a candidate for therapy for his lung cancer. Acute hypoxemic respiratory failure- improving -S/p rapid response this am -AB.51, pCO2 38, pO2 55 on 4 Lpm -spO2 at 81% and bumped to 11 LPM of O2 -Well's score of 8, D-dimer 1289 -Patient satting well on 3 LMP after this episode -CXR appears mildly improved from previous -CTA with small PE in lingula, consolidation present, possible pneumonia vs malignancy -Repeat CXR similar to prior -BAL from 09/07 has malignant cells from RLL, with PET scan suspicious for right plerua involvement, the concern is for rapidly-progressing FLORENCE PLAN >Pulmonology following, appreciate recs >Incentive spirometer and acapella device, with addition of chest physiotherapy device >Plan for [facility] to deliver autotitrate CPAP machine [facility] >Completed course of zosyn for empiric coverage of presumed aspiration pneumonia Positive acid-fast bacteria culture -Unclear significance at this point, it is certainly possible that this is only a MAC infection. - The patient is quite immunocompromised secondary to his immunosuppression for orthotopic liver transplant. - Symptomatically, the patient is relatively unchanged over the past several months since he was hospitalized for the pneumonia. Nevertheless, will be important to rule out active tuberculosis and further workup this finding. Plan Acid-fast bacteria sputum 3 negative--will remove isolation precautions Infectious disease consulted, appreciate recs: Suspect NTM rather than TB. >Cultures and sensitivities pending >Will request follow up outpatient to discuss pursuing treatment History of orthotopic liver transplant Orthotopic liver transplant in 2012. --He has been immunosuppressed with tacrolimus and everolimus. This has been complicated by biliary stricture requiring stent. He follows with Dr. Regan Brock of our hepatology department here. --Last tacrolimus and everolimus levels (09/11) not drawn for proper trough Plan: Hepatology consulted, appreciate recs: continue with tacrolimus 0.5 BID and everolimus 1mg BID >tacrolimus (goal ~3) and everolimus (goal ~5) levels >Obtain trough tomorrow before dialysis Adenocarcinoma - Bronchoscopy and biopsies were taken at OSH on 08/13; biopsies revealed adenocarcinoma - Patient has not initiated treatment - Patient planned to establish with [facility] Medical Oncology - BAL positive for malignant cells in RLL - PET scan: Redemonstration of hypermetabolic consolidation within the right upper lobe compatible with combination of biopsy-proven adenocarcinoma with superimposed pneumonia. 2. Hypermetabolic paratracheal lymph node concerning for regional lymph node metastasis. 3. Pleural-based medial right hemithorax FDG avid lesion concerning for pleural-based metastasis. PLAN - Consult medical oncology - Consult pulmonology, as above - Will try to coordinate visit with oncology tomorrow History of end-stage renal disease (secondary to immunosuppression) on Sunday, , Sunday dialysis Nephrology consulted, appreciate recs: Patient now on // dialysis schedule. Continue sevelamer 800 mg TID with meals for hyperphosphatemia. 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 Patient seen and discussed with Dr. Bruce. Subjective Liz Hendricks is a 76 y.o. male. Patient wore auto-titrate CPAP machine last night without desaturation. He is in dialysis this morning. Seen with Dr. Ventura this morning, who discussed with patient the lack of available treatment options for his lung cancer. Patient expressed understanding. He feels good about going to the facility today. He wants to be close to family. He denies headache, shortness of breath, wheezing, and abdominal pain. Medications Scheduled Meds: albuterol 0.5% (PROVENTIL; VENTOLIN) nebulizer solution 2.5 mg 2.5 mg Inhalation QID & PRN apixaban (ELIQUIS) tablet 5 mg 5 mg Oral BID aspirin chewable tablet 81 mg 81 mg Oral QDAY atorvastatin (LIPITOR) tablet 10 mg 10 mg Oral QDAY doxazosin (CARDURA) tablet 2 mg 2 mg Oral QDAY escitalopram oxalate (LEXAPRO) tablet 10 mg 10 mg Oral QDAY everolimus (immunosuppressive) (ZORTRESS) tablet 1.5 mg 1.5 mg Oral BID ipratropium bromide (ATROVENT) 0.02 % nebulizer solution 0.5 mg 0.5 mg Inhalation QID & PRN oxybutynin XL (DITROPAN XL) tablet 10 mg 10 [address] pantoprazole [address] (PROTONIX) tablet 40 mg 40 mg Oral QDAY(21) sevelamer carbonate (RENVELA) tablet 800 mg 800 mg Oral TID w/ meals tacrolimus (PROGRAF) capsule 1 mg 1 mg Oral BID Continuous Infusions: PRN and Respiratory Meds: Objective: Vital Signs: Last Filed Vital Signs: 24 Hour Range BP: 130/64 (09/14 1306) Temp: 36.9 C (98.5 F) (09/14 1306) Pulse: 88 (09/14 1306) Respirations: 20 PER MINUTE (09/14 1306) SpO2: 94 % (09/14 1306) O2 Delivery: Nasal Cannula (09/14 1306) SpO2 Pulse: 75 (09/14 1123) BP: (120-149)/(51-67) Temp: [36.6 C (97.9 F)-37.2 C (98.9 F)] Pulse: [67-88] Respirations: [16 PER MINUTE-22 PER MINUTE] SpO2: [89 %-97 %] O2 Delivery: Nasal Cannula Vitals: 09/12/17 1116 09/14/17 0700 09/14/17 1124 Weight: 93.1 kg (205 lb 4 oz) 95.6 kg (210 lb 12.2 oz) (S) 93.6 kg (206 lb 5.6 oz) Intake/Output Summary: (Last 24 hours) Intake/Output Summary (Last 24 hours) at 09/14/17 1457 Last data filed at 09/14/17 1100 Gross per 24 hour Intake 540 ml Output 2311 ml Net -1771 ml Stool Occurrence: 1 Physical Exam General: Alert. No acute distress HEENT: NCAT. Moist mucous membranes. Lungs: Coarse rales bilateral lower lobes Cardiac: Regular rate and rhythm Abdomen: Soft. Non-tender, non-distended. Normoactive bowel sounds Extremities: Bilateral lower extremities without swelling/erythema Neuro: Cranial nerves grossly intact. Moves all extremities spontaneously Psych: Pleasant and cooperative Lab Review 24-hour labs: Results for orders placed or performed during the hospital encounter of (from the past 24 hour(s)) PROTIME INR (PT) Collection Time: 09/14/17 5:49 AM Result Value Ref Range INR 1.6 (H) 0.8 - 1.2 TACROLIMUS LEVEL(FK506) Collection Time: 09/14/17 5:51 AM Result Value Ref Range Tacrolimus 2.1 2 - 15 NG/ML EVEROLIMUS BLOOD Collection Time: 09/14/17 5:51 AM Result Value Ref Range Everolimus 3.6 3 - 10 ng/mL POTASSIUM Collection Time: 09/14/17 7:00 AM Result Value Ref Range Potassium 3.6 3.5 - 5.1 MMOL/L Point of Care Testing (Last 24 hours) Radiology and other Diagnostics Review: Pertinent radiology reviewed. CXR: 1. Interval placement of a right IJ central venous catheter as described above. 2. Unchanged dense alveolar consolidation in the right upper lobe, compatible with the known adenocarcinoma, with patchy opacities in the lung bases, which may represent superimposed pneumonia. Faith Jordan DO PGY-1 Pager [phone] Associated attestation - Monalisa Bruce MD - 09/14/2017 4:46 PM CDT Formatting of this note may be different from the original. ATTESTATION I personally performed the yeh portions of the E/M visit, discussed case with resident and concur with resident documentation of history, physical exam, assessment, and treatment plan unless otherwise noted. Met with pt and his son at bedside after HD. I had spoken in detail with Dr Ventura this morning.There is concern that pt will not be strong enough to travel back to next week for his office appt with Dr Ventura. He requires 2 person assistance to get to a standing position and has airway clearance challenges. Dr Ventura had reviewed pts case , biopsy results and imaging. He is in agreement with Pulm that there is unfortunately not a treatment that can be offered for patent's lung cancer-- based on functional status,extent of disease , co-morbidities( OLT on immunosuppressives and ESRD on HD) and molecular studies of his cancer tissue. Dr Ventura met with pt at bedside. There was no family present at that time. Dr Ventura will call and discuss with family members. We have received a contact phone # from family and will give to him . The above was discussed again by myself with pt and his son that was then at bedside The expressed understanding and I answered all their questions Auto titrate CPAP confirmed ready at SNF Pt looking forward to DC and getting backup sawyer to home Total time of DC was 50 minutes; Time spent in counseling and TIMA with consultants Staff name: Monalisa Bruce MD Date: 09/14/2017 * Delmy Sierra RN - 09/14/2017 2:04 PM CDT Liz Hendricks discharged on 09/14/2017. . Discharge instructions reviewed with patient. Valuables returned: Personal Items / Valuables: Valuables/Belongings sent home with family/friends Denture Type: Partial lower Where Are Valuables Stored?: teeth back in patients mouth. Home medications: . Functional assessment at discharge complete: Yes RN reviewed dc/ instructions with pt and son, pt and son verbalized understanding and denied any question. Pt transported off unit via cart by [facility]. * Clinton Rosales MD - 09/14/2017 1:00 PM CDT Formatting of this note may be different from the original. Infectious Diseases Progress Note Today's Date: 09/14/2017 Admission Date: 08/31/2017 Reason for this consultation: Positive AFB from mass biopsy at OSH. History of OLT in 2012 Consult Type: Co-Management w/Signed Orders Assessment: Lung mass with JERED growth on biopsy culture July 2017 Adenocarcinoma of the lung - 2 months ago the patient was hospitalized at an outside facility for pneumonia. During that hospitalization he underwent bronchoscopy and biopsies were taken of the mass (08/13). This mass showed adenocarcinoma. -08/13 mass bx also had AFB culture sent. + on 08/30. ID was contacted on 08/31 for advice and reportedly recommended admission. -On admission he felt generally unchanged, he did have significant weakness and lost 30 pounds over the prior 10 weeks. He did have a dry cough without any hemoptysis. He had not been incarcerated or had significant travel (only intl was [place] ago to [place]) or TB exposure. -3 AFB sputum cultures were ordered, is placed on airborne precautions, no antibiotics were started and ID was consulted. -No leukocytosis, afebrile. -Regarding the culture that was positive from the mass this was + on 08/30 and sent for ID to the state lab. 09/04 confirmed JERED, requested susceptibilities be sent, discussed with lab employee Monalisa Dietrichen, sent to [facility] - Repeat AFB sputums x 3 smear neg, cultures pending - 09/11/17 PET/CT with hypermetabolic RUL consolidation with hypermetabolic paratracheal LN, and hypermetabolic pleural-based medial right hemithorax suggestive of pleural metastasis Possible secondary bacterial pneumonia Aspiration? -Decompensated overnight 09/03-, possible aspiration broad abx with Vanc and Pip /tazo -09/06 BAL with hyperdynamic airways with slight erythema noted; WBC 440, gm stain nos, light growth of C.albicans on cx, no sig tian, and AFB so far negative as of 09/11. 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 ID requested susceptibilities on 03/14, sent to [facility] for susceptibilities -Unclear need for treatment vs monitoring. Dr Lynn will follow as outpatient and discuss potential treatment options. JERED not the cause of current symptoms. -09/06 BAL AFB smear neg, culture pending -Monitor off of systemic antimicrobials. -Encourage pulmonary hygiene -Will follow bacterial and AFB cultures from BAL 09/06 -Watch for antimicrobial toxicities Patient discussed with Dr. Rosales. Faith Redd MD Infectious Disease Fellow Pager: [phone] ATTESTATION I personally performed the yeh portions of the E/M visit, discussed case with Dr Redd and concur with her documentation of history, physical exam, assessment , and treatment plan (unless modified by me). Where appropriate, addendums were made to the above. Clinton Bobby Date: 09/14/2017 History of Present Illness This is a 76-year-old man with a history of liver transplant in 2012 with disease (Suarez plus alcoholic cirrhosis) on everolimus plus tacrolimus for immunosuppression. He also has a history of end-stage renal disease on hemodialysis and diabetes mellitus.Recent dx of lung adenocarcinoma. The lung mass bx subsequently is growing an AFB, found to be JERED. Afebrile. Plan for discharge to SNF today Seen HD today. Dsypnea with activity. Continues with wet cough, unable to cough up secretions. No f/c/diaphoresis, no rash, no abd pain, no MCKENZIE. Antimicrobial Start date End date Pip/tazo 09/04/17 09/10/17 Vancomycin 09/04/17 09/07/17 Estimated Creatinine Clearance: 11.7 mL/min (A) (based on SCr of 7.31 mg/dL (H)) . Medications Scheduled Meds: albuterol 0.5% (PROVENTIL; VENTOLIN) nebulizer solution 2.5 mg 2.5 mg Inhalation QID & PRN apixaban (ELIQUIS) tablet 5 mg 5 mg Oral BID aspirin chewable tablet 81 mg 81 mg Oral QDAY atorvastatin (LIPITOR) tablet 10 mg 10 mg Oral QDAY doxazosin (CARDURA) tablet 2 mg 2 mg Oral QDAY escitalopram oxalate (LEXAPRO) tablet 10 mg 10 mg Oral QDAY everolimus (immunosuppressive) (ZORTRESS) tablet 1.5 mg 1.5 mg Oral BID ipratropium bromide (ATROVENT) 0.02 % nebulizer solution 0.5 mg 0.5 mg Inhalation QID & PRN oxybutynin XL (DITROPAN XL) tablet 10 mg 10 [address] Oral [address]HS pantoprazole DR (PROTONIX) tablet 40 mg 40 mg Oral QDAY(21) sevelamer carbonate (RENVELA) tablet 800 mg 800 mg Oral TID w/ meals tacrolimus (PROGRAF) capsule 1 mg 1 mg Oral BID Continuous Infusions: PRN and Respiratory Meds:acetaminophen Q4H PRN, guaiFENesin Q4H PRN, ondansetron Q6H PRN, sodium chloride 0.9% (NS) IP Dialysis PRN, sodium chloride 0.9% (NS) IP Dialysis PRN, sodium chloride 0.9% (NS) IP Dialysis PRN Allergies Allergies Allergen Reactions Adhesive BLISTERS Skin tears Physical Examination Vital Signs: Last Vital Signs: 24 Hour Range BP: 127/60 (09/14 1124) Temp: 36.9 C (98.4 F) (09/14 1123) Pulse: 75 (09/14 1123) Respirations: 22 PER MINUTE (09/14 112) SpO2: 95 % (09/14 112) O2 Delivery: Nasal Cannula (09/14 1100) SpO2 Pulse: 75 (09/14 1123) BP: (120-149)/(51-67) Temp: [36.6 C (97.9 F)-37.2 C (98.9 F)] Pulse: [67-79] Respirations: [16 PER MINUTE-22 PER MINUTE] SpO2: [89 %-97 %] O2 Delivery: Nasal Cannula General: alert, oriented, in NAD, looks tired but smiling HENT: MMM, oropharynx clear Neck: supple, no lymphadenopathy Lungs: less coarse breath sounds throughout Heart: regular rhythm, reg rate, no murmur Abdomen: soft, non-tender, non-distended, normoactive bowel sounds Ext: no edema Skin: no rashes Lines: PIV, RUE AV fistula 09/04 tunneled non cuffed RIJ 2L CVC Lab Review Hematology Recent Labs 09/12/17 0355 09/12/17 0636 09/13/17 0426 09/14/17 0549 WBC -- 4.6 -- -- HGB -- 7.0* -- -- HCT -- 20.8* -- -- PLTCT -- 269 -- -- INR 1.7* -- 1.7* 1.6* Chemistry Recent Labs 09/12/17 0355 09/14/17 0700 NA 137 -- K 3.5 3.6 CL 100 -- CO2 26 -- BUN 27* -- CR 7.31* -- GFR 7* -- GLU 93 -- CA 10.2 -- PO4 7.6* -- Microbiology, Radiology and other Diagnostics Review Microbiology data reviewed. 08/31/17: BC x2 NGTD Pertinent radiology images viewed. * Omer Alvarado MD - 09/14/2017 12:55 PM CDT I have seen and examined the patient on HD today. On exam, pt resting comfortably, NAD, lungs coarse, heart RR, trace edema. BP and lytes stable. Plan on 2 liters of UF today as BP tolerates. * Delmy Sierra RN - 09/14/2017 12:36 PM CDT 1236 pt back from dialysis, bed alarm active, call light within reach * Samantha Juarez APRN - 09/14/2017 7:58 AM CDT Formatting of this note may be different from the original. Oncology Consult Progress Note Name: Liz Hendricks Today's Date: 09/14/2017 Admission Date: 08/31/2017 LOS: 14 days Assessment/Plan: Active Problems: Liver transplanted (HCC) Immunosuppression (HCC) Acid-fast bacteria present Primary lung adenocarcinoma (HCC) ESRD (end stage renal disease) on dialysis (HCC) GERD (gastroesophageal reflux disease) Severe malnutrition (HCC) Mycobacterial infection Primary adenocarcinoma of lung (HCC) Lung Adenocarcinoma - 07/18/17: CT chest, RUL pneumonia - 07/24/17-07/31/17 patient admitted to [facility] for persistent pneumonia. - 08/10/17-08/20/17 admitted at [facility] for increasing weakness and fatigue. - 08/11/17 CT chest, significant right lung airspace disease, persistent effusions. - 08/13/17 bronchoscopy with RUL biopsy and brushing. Biopsy showed focally invasive well-differentiate adenocarcinoma, predominant lepidic pattern. No other studies currently pending. - 08/14/17 MRI brain, negative - 09/02/17: CT chest- Re demonstration of consolidative right upper lobe opacities with associated cystic changes and air bronchograms. Findings likely represent reported biopsy-proven adenocarcinoma with underlying mycobacterial Infection. Progression in bibasilar ground glass and consolidative opacities, consistent with increasing pneumonia. - 09/12/17: PET- Redemonstration of hypermetabolic consolidation within the right upper lobe compatible with combination of biopsy-proven adenocarcinoma with superimposed pneumonia. Hypermetabolic paratracheal lymph node concerning for regional lymph node metastasis. Pleural-based medial right hemithorax FDG avid lesion concerning for pleural-based metastasis - OS molecular testing results on 08/13/17 biopsy: PDL1 negative (0%), ALK, ROS1 negative, KRAS detected, EGFR, MET negative Mycobacterium Avium Intracellularae - AFB sputum here negative x 3 - bronchoscopy with BAL and TBB (09/07/17) - hyperdynamic airways with slight erythema noted - ID following ESRD on HD ESLD s/p OLT on everolimus and tacrolimus Plan - Given that pathology negative for mutations that would allow patient to be candidate for targeted or immunotherapies, would recommend hospice. Patient not a candidate for chemotherapy given hepatic and renal function - Dr. Ventura discussing with patient and family today, please see his addendum to this note for his recommendations. Patient seen and discussed with Dr. Ventura Subjective Liz Hendricks is a 76 y.o. male. No acute events overnight. To dialysis this morning. Patient denies any current pain. No fever chills, nausea, vomiting. Feeling fatigued, with dyspnea with activity. Medications Scheduled Meds: albuterol 0.5% (PROVENTIL; VENTOLIN) nebulizer solution 2.5 mg 2.5 mg Inhalation QID & PRN apixaban (ELIQUIS) tablet 5 mg 5 mg Oral BID aspirin chewable tablet 81 mg 81 mg Oral QDAY atorvastatin (LIPITOR) tablet 10 mg 10 mg Oral QDAY doxazosin (CARDURA) tablet 2 mg 2 mg Oral QDAY escitalopram oxalate (LEXAPRO) tablet 10 mg 10 mg Oral QDAY everolimus (immunosuppressive) (ZORTRESS) tablet 1.5 mg 1.5 mg Oral BID ipratropium bromide (ATROVENT) 0.02 % nebulizer solution 0.5 mg 0.5 mg Inhalation QID & PRN oxybutynin XL (DITROPAN XL) tablet 10 mg 10 [address]HS pantoprazole DR (PROTONIX) tablet 40 mg 40 mg Oral QDAY(21) sevelamer carbonate (RENVELA) tablet 800 mg 800 mg Oral TID w/ meals tacrolimus (PROGRAF) capsule 1 mg 1 mg Oral BID Continuous Infusions: PRN and Respiratory Meds:acetaminophen Q4H PRN, guaiFENesin Q4H PRN, ondansetron Q6H PRN, sodium chloride 0.9% (NS) IP Dialysis PRN, sodium chloride 0.9% (NS) IP Dialysis PRN, sodium chloride 0.9% (NS) IP Dialysis PRN Objective Vital Signs: Last Filed Vital Signs: 24 Hour Range BP: 134/55 (09/14 729) Temp: 36.8 C (98.3 F) (09/14 699) Pulse: 70 (09/14 729) Respirations: 17 PER MINUTE (09/14 729) SpO2: 95 % (09/14 729) O2 Delivery: Nasal Cannula (09/14 699) SpO2 Pulse: 70 (09/14 729) BP: (134-149)/(55-64) Temp: [36.6 C (97.9 F)-37.2 C (98.9 F)] Pulse: [68-79] Respirations: [16 PER MINUTE-22 PER MINUTE] SpO2: [89 %-97 %] O2 Delivery: Nasal Cannula Vitals: 09/10/17 1400 09/12/17 0655 09/12/17 1116 Weight: 94.6 kg (208 lb 8.9 oz) 95.1 kg (209 lb 10.5 oz) 93.1 kg (205 lb 4 oz) Intake/Output Summary: (Last 24 hours) Intake/Output Summary (Last 24 hours) at 09/14/17 0759 Last data filed at 09/14/17 0717 Gross per 24 hour Intake 1302 ml Output 1 ml Net 1301 ml Stool Occurrence: 1 Review of Systems: A 14 point review of systems was negative except for: Constitutional: positive for fatigue Respiratory: positive for dyspnea on exertion Physical Exam General appearance: Alert, cooperative, no distress Head: Normocephalic, atraumatic Lungs: Non-labored Abdomen: soft, non-tender. Extremities: No edema Neurologic: No focal deficits Lab Review 24-hour labs: Results for orders placed or performed during the hospital encounter of (from the past 24 hour(s)) EVEROLIMUS BLOOD Collection Time: 09/13/17 8:25 AM Result Value Ref Range Everolimus 3.4 3 - 10 ng/mL TACROLIMUS LEVEL(FK506) Collection Time: 09/13/17 8:25 AM Result Value Ref Range Tacrolimus 1.6 (L) 2 - 15 NG/ML PROTIME INR (PT) Collection Time: 09/14/17 5:49 AM Result Value Ref Range INR 1.6 (H) 0.8 - 1.2 POTASSIUM Collection Time: 09/14/17 7:00 AM Result Value Ref Range Potassium 3.6 3.5 - 5.1 MMOL/L Point of Care Testing (Last 24 hours) Radiology and other Diagnostics Review: Pertinent radiology reviewed. Samantha Juarez APRN [phone] Associated attestation - Jamie Ventura MD - 09/14/2017 10:27 AM CDT I reviewed notes from Samantha Juarez APRNI, agree with her notes. I personally met with Mr. Hendricks, reviewed radiology images, reports with infiltrative area on right upper lobe and multiple other parenchymal lung lesions,. Infectious vs multifocal infiltrative adenocarcinoma with lipidic pattern. He is not surgical candidate, no role for palliative radiation as it is diffuse area. Systemic therapy particularly chemotherapy and immune therapy are eliminated because of his poor organ function (on dialysis) and liver transplant (contraindication of checkpoint inhibitors). Small molecules to inhibit piledriver carpenter mutation may be feasible but his molecular panel did not show any piledriver carpenter mutation. I discussed supportive care only at home, hospice at home likely will be able to optimize his comfort better and will be of great help for family as well. Patient agrees that his condition is poor , agrees for supportive care only to optimize quality of life. * Berkley Muñoz RN - 09/14/2017 6:36 AM CDT Pt left via bed with transport to dialysis. * Jonathon Munguia MD - 09/13/2017 6:03 PM CDT Tacrolimus and everolimus trough levels 09/13: 1.6, and 3.4 respectively Trough level goal for tacro is around 3 Trough level goal for everolimus is around 5. Please increase tacrolimus dose to 1 mg twice daily, and everolimus to 1.5 mg twice daily Please continue to check trough levels daily Rest of the plan per primary team. Plan was discussed with Dr. Li Munguia MD Gastroenterology and hepatology fellow Pager: [phone] * Andreina Davis, RT - 09/13/2017 5:59 PM CDT Formatting of this note may be different from the original. RESPIRATORY THERAPY ADULT PROTOCOL EVALUATION RESPIRATORY PROTOCOL PLAN Medications Albuterol/Ipratropium: Neb Q4h While Awake & PRN Note: If indicated by protocol, medication orders will be placed by therapist. Procedures Vibrating PEP Therapy: Q4h While Awake PAP: Place a nursing order for "IS Q1h While Awake" for any of Lung Expansion indicators Oxygen/Humidity: O2 to keep SpO2 > 92% Monitoring: Pulse oximetry BID & PRN PATIENT EVALUATION RESULTS Chart Review * Pulmonary Hx: Hx pulmonary disease, hx reactive or obstructive airway disease (PEFR & AM) OR regular home use of bronchodilators (AM) OR inhaled or systemic steroid use for lungs < or equal to 4 times/yr (AM) * Surgical Hx: No surgery OR last surgery > 6 weeks ago OR trach/stoma (BA) * Chest X-Ray: Clear OR not available * PFT/Oxygenation: FEV1, PEFR > 80% predicted OR physically unable to perform OR Pa02 >80 RA OR Sp02 >95% RA Patient Assessment * Respiratory Pattern: Regular pattern and rate OR good chest excursion with deep breathing * Breath Sounds: Clear apically, but diminished in bases (LE) OR CHF related crackles (02) (oximetry) * Cough / Sputum: Strong, effective cough OR nonproductive * Mental Status: Alert, oriented, cooperative * Activity Level: Ambulatory with assistance Priority Index Total Points: 5 Points * Priority Index: 1+ PRIORITY INDEX GUIDELINES* Priority Points 1 0-9 points 2 9-18 points 3 > 18 points + Pulm Dx or Home Rx *Higher points indicate higher acuity. Therapist: Andreina Davis, RT Date: 09/13/2017 Yeh AC=Airway clearance AM=Aerosolized medication BA=[place] aerosol DB&C=Deep breathe & cough FEV1=Forced expiratory volume in first second) IC=Inspiratory capacity LE=Lung expansion MDI=Metered dose inhaler Neb=Nebulizer O2=Oxygen Oxim=Oximetry PEFR=Peak expiratory flow rate [employer]ER=Rapid Response Team * Clinton Rosales MD - 09/13/2017 5:44 PM CDT Formatting of this note may be different from the original. Infectious Diseases Progress Note Today's Date: 09/13/2017 Admission Date: 08/31/2017 Reason for this consultation: Positive AFB from mass biopsy at OSH. History of OLT in 2012 Consult Type: Co-Management w/Signed Orders Assessment: Lung mass with JERED growth on biopsy culture July 2017 Adenocarcinoma of the lung - 2 months ago the patient was hospitalized at an outside facility for pneumonia. During that hospitalization he underwent bronchoscopy and biopsies were taken of the mass (08/13). This mass showed adenocarcinoma. -08/13 mass bx also had AFB culture sent. + on 08/30. ID was contacted on 08/31 for advice and reportedly recommended admission. -On admission he felt generally unchanged, he did have significant weakness and lost 30 pounds over the prior 10 weeks. He did have a dry cough without any hemoptysis. He had not been incarcerated or had significant travel (only intl was decades ago to [place]) or TB exposure. -3 AFB sputum cultures were ordered, is placed on airborne precautions, no antibiotics were started and ID was consulted. -No leukocytosis, afebrile. -Regarding the culture that was positive from the mass this was + on 08/30 and sent for ID to the state lab. 09/04 confirmed JERED, requested susceptibilities be sent, discussed with lab employee Monalisa Mccrary, sent to [facility] - Repeat AFB sputums x 3 smear neg, cultures pending - 09/11/17 PET/CT with hypermetabolic RUL consolidation with hypermetabolic paratracheal LN, and hypermetabolic pleural-based medial right hemithorax suggestive of pleural metastasis Possible secondary bacterial pneumonia Aspiration? -Decompensated overnight 09/03-, possible aspiration broad abx with Vanc and Pip /tazo -09/06 BAL with hyperdynamic airways with slight erythema noted; WBC 440, gm stain nos, light growth of C.albicans on cx, no sig tian, and AFB so far negative as of 09/11. 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 ID requested susceptibilities on 03/14, sent to [facility] for susceptibilities -Unclear need for treatment vs monitoring. Dr Lynn will follow as outpatient and discuss potential treatment options. JERED not the cause of current symptoms. -09/06 BAL AFB smear neg, culture pending -Monitor off of systemic antimicrobials for now, but low threshold to resume antibiotics if he clinically worsenings -Encourage pulmonary hygiene -Will follow bacterial and AFB cultures from BAL 09/06 -Watch for antimicrobial toxicities -Will follow Patient discussed with Dr. Rosales. Faith Redd MD Infectious Disease Fellow Pager: [phone] ATTESTATION I personally performed the yeh portions of the E/M visit, discussed case with Dr Redd and concur with her documentation of history, physical exam, assessment , and treatment plan (unless modified by me). Where appropriate, addendums were made to the above. Clinton Rosales Date: 09/13/2017 History of Present Illness This is a 76-year-old man with a history of liver transplant in 2012 with disease (Suarez plus alcoholic cirrhosis) on everolimus plus tacrolimus for immunosuppression. He also has a history of end-stage renal disease on hemodialysis and diabetes mellitus.Recent dx of lung adenocarcinoma. The lung mass bx subsequently is growing an AFB, found to be JERED. Afebrile. Still working on CPAP for discharge. Dsypnea with activity, not spending much time out of bed. Continues with wet cough, unable to cough up secretions. No f/c/diaphoresis, no rash, no abd pain, no MCKENZIE. Antimicrobial Start date End date Pip/tazo 09/04/17 09/10/17 Vancomycin 09/04/17 09/07/17 Estimated Creatinine Clearance: 11.7 mL/min (A) (based on SCr of 7.31 mg/dL (H)) . Medications Scheduled Meds: albuterol 0.5% (PROVENTIL; VENTOLIN) nebulizer solution 2.5 mg 2.5 mg Inhalation Q4H apixaban (ELIQUIS) tablet 5 mg 5 mg Oral BID aspirin chewable tablet 81 mg 81 mg Oral QDAY atorvastatin (LIPITOR) tablet 10 mg 10 mg Oral QDAY doxazosin (CARDURA) tablet 2 mg 2 mg Oral QDAY escitalopram oxalate (LEXAPRO) tablet 10 mg 10 mg Oral QDAY everolimus (immunosuppressive) (ZORTRESS) tablet 1 mg 1 mg Oral BID oxybutynin XL (DITROPAN XL) tablet 10 mg 10 [address]ole [address] (PROTONIX) tablet 40 mg 40 mg Oral QDAY(21) sevelamer carbonate (RENVELA) tablet 800 mg 800 mg Oral TID w/ meals tacrolimus (PROGRAF) capsule 0.5 mg 0.5 mg Oral BID Continuous Infusions: PRN and Respiratory Meds:acetaminophen Q4H PRN, guaiFENesin Q4H PRN, ipratropium bromide Q4H PRN, ondansetron Q6H PRN Allergies Allergies Allergen Reactions Adhesive BLISTERS Skin tears Physical Examination Vital Signs: Last Vital Signs: 24 Hour Range BP: 149/62 (09/13 1516) Temp: 36.6 C (97.9 F) (09/13 1516) Pulse: 79 (09/13 1516) Respirations: 20 PER MINUTE (09/13 1516) SpO2: 94 % (09/13 1516) O2 Delivery: Nasal Cannula (09/13 1516) BP: (122-149)/(57-63) Temp: [36.6 C (97.9 F)-37.2 C (99 F)] Pulse: [68-79] Respirations: [17 PER MINUTE-20 PER MINUTE] SpO2: [92 %-94 %] O2 Delivery: Nasal Cannula General: alert, oriented, in NAD, looks tired HENT: MMM, oropharynx clear Neck: supple, no lymphadenopathy Lungs: coarse breath sounds throughout Heart: regular rhythm, reg rate, no murmur Abdomen: soft, non-tender, non-distended, normoactive bowel sounds Ext: no edema Skin: no rashes Lines: PIV, RUE AV fistula 09/04 tunneled non cuffed RIJ 2L CVC Lab Review Hematology Recent Labs 09/11/17 0350 09/12/17 0355 09/12/17 0636 09/13/17 0426 WBC 4.8 -- 4.6 -- HGB 7.2* -- 7.0* -- HCT 21.3* -- 20.8* -- PLTCT 258 -- 269 -- INR 1.8* 1.7* -- 1.7* Chemistry Recent Labs 09/11/17 0350 09/12/17 0355 NA 137 137 K 3.6 3.5 CL 100 100 CO2 26 26 BUN 18 27* CR 5.67* 7.31* GFR 10* 7* GLU 95 93 CA 10.2 10.2 PO4 -- 7.6* ALBUMIN 2.9* -- ALKPHOS 57 -- AST 13 -- ALT 9 -- TOTBILI 0.3 -- Microbiology, Radiology and other Diagnostics Review Microbiology data reviewed. 08/31/17: BC x2 NGTD Pertinent radiology images viewed. * Monalisa Davey RN - 09/13/2017 1:30 PM CDT Pt was ready for discharge, with discharge instructions complete, all lines removed, and dressed and ready to go. EMS transport was at pt's rooms, then discharge was cancelled because facility accepting pt would not have necessary equipment in time for pt. RN notified DO that all lines were pulled and pt no longer had any access. Dr. Jordan said that was acceptable. 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 Precautions: O2 Requirement;Falls (5L) Pain / Complaints: Patient agrees to participate in therapy;Patient demonstrates no signs of pain Comments: Patient sitting in chair upon arrival and ends supine in bed upon leaing. Paged SW for discharge planning per RN request. Objective Psychosocial Status: Willing and Cooperative to Participate Persons Present: Spouse;Friend Home Living Type of Home: House Home Layout: One Level Bathroom Shower / Tub: Tub/Shower Unit Bathroom Toilet: Standard Prior Function Level Of Gary: Independent with ADLs and functional transfers; Independent with homemaking w/ ambulation Lives With: Spouse Receives Help From: None Needed ADL's Where Assessed: In Bathroom;Chair Grooming Assist: Moderate Assist (while standing at the sink) Grooming Deficits: Steadying;Standing With Assistive Device (poor tolerance, poor standing posture due to fatigue and weakness) Toileting Assist: Minimal Assist Toileting Deficits: Steadying;Bilateral Grab Bar Use (patient able to pull brief /pants up while therapist provides steadying assist) Functional Transfer Assist: Moderate Assist Functional Transfer Deficits: Toilet Transfer (sit>stand from low chair) Comments: Patient requires instruction on appropriate sit to stand technique including front><back weight shift to build momentum. Upon standing up from the chair, patient looses balance posteriorly requiring moderate assistance from therapist for balance recovery. Patient ambulates to bathroom toilet using roller walker, minimal assistance. Upon standing at the sink and removing UE's off walker to wash hands, patient requires moderate assist for trunk as patient begins to hunch forward and lean towards left. Deferred further ADL's at the sink due to significant weakness and fatigue. Patient ambulates to bed and requires instruction on safe transfer techniques as patient begins to sit down mid way through swinging hips around onto the bed. Walker also too far away from patient. Patient states "I couldn't orange picking supervisor my left leg" [to bring it back] . Sit to supine performed stand by assist. Sp02 94% on 5L O2 at rest. Sp02 87% on 5L O2 with activity. O2 saturation quickly rises following cues to practice pursed lip breathing. Placed sofa cushion in chair seat to build up height for the next time patient sits in chair. Activity Tolerance Endurance: 3/5 Tolerates 25-30 Minutes Exercise w/Multiple Rests Cognition Overall Cognitive Status: WFL to Adequately Complete Self Care Tasks Safely Assessment Assessment: Decreased ADL Status;Decreased UE Strength;Decreased Endurance; Decreased Self-Care Trans;Decreased High-Level ADLs Prognosis: Good;w/Cont OT s/p Acute Discharge AM-PAC 6 Clicks Daily Activity Inpatient Putting on and taking off regular lower body clothes?: Total Bathing (Including washing, rinsing, drying): A Lot Toileting, which includes using toilet, bedpan, or urinal: Total Putting on and taking off regular upper body clothing: A Little Taking care of personal grooming such as brushing teeth: A Little Eating meals?: None Daily Activity Raw Score: 14 Standardized (t-scale) score: 33.39 CMS 0-100% Score: 59.67 CMS G Code Modifier: CK AM-PAC Daily Activity Functional Stage: -2.73-40 No Independent Tasks Plan OT Frequency: 5x/week Next: standing ADL's at the sink, as patient tolerates ADL Goals Patient Will Perform Grooming: Standing at Sink;w/ Minimum Assist Patient Will Perform LE Dressing: In Chair;w/ Moderate Assist Functional Transfer Goals Pt Will Transfer To Bedside Commode: w/ Minimum Assist, w/ Assistive Device OT Discharge Recommendations OT Discharge Recommendations: Inpatient Setting, To address deficits, maximize function and improve safety. Equipment Recommendations: Too early to be determined Therapist: FLETCHER Lu [id number] Date: 09/13/2017 * Thea Marie - 09/13/2017 10:30 AM CDT PHYSICAL THERAPY PROGRESS NOTE MOBILITY: Mobility Progressive Mobility Level: Walk in room Distance Walked (feet): 10 ft Level of Assistance: Assist X2 Assistive Device: Walker Time Tolerated: 11-30 minutes Activity Limited By: Weakness SUBJECTIVE: Subjective Significant hospital events: recently diagnosed adenocarcinoma of the lung. Planned to establish with Dr. Ventura on 09/03/17 but is now hospitalized for tuberculosis rule-out Mental / Cognitive Status: Alert;Oriented;Cooperative Pain: Patient has no complaint of pain Pain Interventions: Patient agrees to participate in therapy Comments: dialysis MWF schedule Ambulation Assist: Independent Mobility in Community with Endurance Limitations; Independent Mobility in Community with Device Patient Owned Equipment: Single Point Cane;Roller Walker Home Situation: Lives with Family Type of Home: House Entry Stairs: 1-2 Stairs In-Home Stairs: Able to Live on One Level BED MOBILITY/TRANSFERS: Bed Mobility/Transfers Bed Mobility: Supine to Sit: Standby Assist;Head of Bed Elevated (requires increased time) Transfer Type: Sit to/from Stand Transfer: Assistance Level: To/From;Bed;Moderate Assist Transfer: Assistive Device: Roller Walker Other Transfer: Assistance Level: To;Bed Side Chair;Minimal Assist (cues for hand placement and technique) Other Transfer: Assistive Device: Roller Walker Other Transfer: Type Of Assistance: For Safety Considerations End Of Activity Status: Up in Chair;Nursing Notified;Instructed Patient to Request Assist with Mobility;Instructed Patient to Use Call Light Comments: practiced sit to stand transfers. patient attempts to transfer with more weight shifted onto LLE vs neutral positioning. cues and tactile assist to initiate sit to technical maintenance specialist a simultaneous motion. discussed need for nurse for assist x2 to complete sit to stand from bedside chair due to lower surface height with returning to bed. otherwise, patient able to initiate sit to stand with assist x1. Ambulated 10 feet to bedside chair with minimal assist and use of roller walker for stability. Cues to keep walker close and maintain upright position. ACTIVITY/EXERCISE: Activity / Exercise Sit Edge Of Bed: 10 minutes Sit Edge Of Bed Assist: Stand By Assist March In Place Repetitions: [address] Assist: Minimal Assist Activity Limited By: Weakness;Complaint of Fatigue (limited endurance) Exercise: (repeated sit to stands- emphasis on tech/rocking momentum) Comments: treatment focused on functional strengthening and endurance training to promote improved mobility tolerance. Patient sats 93% without signs of desating during activity on 4 liters of oxygen. ASSESSMENT/PROGRESS: Assessment/Progress Impaired Mobility Due To: Decreased Strength;Decreased Activity Tolerance; Medical Status Limitation Impaired Strength Due To: Decreased Activity Tolerance;Medical Status Limitation Assessment/Progress: Expect Slow Progress;Slow Progress, Medical Status Limitations Comments: patient with multiple medical complications. patient with generalized deconditioning from prolonged hospitalization. will continue to require skilled therapy intervention to restore, strength, mobility, function, and edurance. AM-PAC 6 Clicks Basic Mobility Inpatient Turning from your back to your side while in a flat bed without using bed rails : A Little Moving from lying on your back to sitting on the side of a flatbed without using bedrails : A Little Moving to and from a bed to a chair (including a wheelchair): A Lot Standing up from a chair using your arms (e.g. wheelchair, or bedside chair): A Lot To walk in hospital room: A Lot Climbing 3-5 steps with a railing: A Lot Raw Score: 14 Standardized (T-scale) Score: 35.55 Basic Mobility CMS 0-100%: 53.86 CMS G Code Modifier for Basic Mobility: CK GOALS: Goals Goal Formulation: With Patient/Family Time For Goal Achievement: 7 days Pt Will Go Supine To/From Sit: Independently Pt Will Transfer Bed/Chair: w/ Stand By Assist Pt Will Ambulate: 51-100 Feet, w/ Walker, w/ Stand By Assist Pt Will Go Up / Down Stairs: 1-2 Stairs, w/ Stand By Assist PLAN: Plan Treatment Interventions: Mobility Training;Balance Activities;Endurance Training ;Strengthening Plan Frequency: 5 Days per Week Comments: Progress upright activity as able with cues for energy conservation. Recommend wheelchair follow when progressing gait distance as tolerated, sit to stand transfer practice, endurance training, LE strengthening RECOMMENDATIONS: PT Discharge Recommendations PT Discharge Recommendations: Inpatient Setting Equipment Recommendations: Cony Walker Therapist: Thea Marie Date: 09/13/2017 * Irasema Acuna APRN-NP - 09/13/2017 9:18 AM CDT Formatting of this note may be different from the original. Pulmonary Progress Note Name: Liz Hendricks Today's Date: 09/13/2017 Admission Date: 08/31/2017 LOS: 13 days Impression: Mr. 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 Acute hypoxic respiratory failure ? Max requirement of 11L ---> down to 4L this AM ? Bilateral lower lobe consolidations on CTA (09/04/17) ? spiked a temp to 101 on 09/03. Patient reports was vomiting episode prior to O2 needs starting- ?aspiration. ? small acute segmental PE in the lingula. Normally it is unlikely that this small PE could cause this degree of hypoxemia, however this is in one of the few areas of normal lung for him so this may account for the degree of hypoxemia we see 2. Adenocarcinoma of the lung- biopsy consistent with adenocarcinoma with lepidic pattern of growth ? onc has requested further testing on biopsy samples including PDL1, ALK, ROS1, EGFR ? onc recommending PET CT for staging ? BAL (09/06/17) + malignant cells 3. Mycobacterium Avium Intracellularae ? AFB sputum here negative x 3 ? bronchoscopy with BAL and TBB (09/07/17) - hyperdynamic airways with slight erythema noted BAL: RBC 800; WBC 440; cells too degenerated for differentiations; atypical cells present Gram stain and bacterial cultures negative 4. Pulmonary infiltrate ? Bibasilar consolidation concerning for superimposed pneumonia ? Reported episode of vomiting prior to becoming febrile 09/03 - ? Aspiration pneumonia ? Zosyn completed 09/10/17 ? Sputum AFB neg x 3 ? PET/CT with hypermetabolic RUL consolidation with hypermetabolic paratracheal LN, and hypermetabolic pleural-based medial right hemithorax suggestive of pleural metastasis 5. OLT (2012) ? Tacrolimus and everolimus daily ? Follows with Dr. Brock 6. ESRD s/t immunosuppression ? T/TR/Sat dialysis 7. PE ? CTA Chest (09/04/17) w/ small acute segmental pulmonary embolus within the lingula ? Continue Apixaban 8. MARGARET ? PSG approximately 10 [facility] ago at [facility] ? Auto-titrating CPAP (max IPAP 11) ? DME: [employer] ? Transitioned to BiPAP 14/09 d/t increased O2 requirements 09/06 during decompensation event ? 09/12 intolerant to home CPAP 11 w/ 5L bleed in with desaturation Recommendations: BAL RLL cytology + for malignant cells concerning for lower lobe infiltrates malignant in nature and contributing to increased O2 requirements and chronic mucus production Cultures negative to date with worsening sputum production and ongoing 5L O2 requirement Concern for progression of FLORENCE d/t immunosuppression ? Needing initiation of treatment prior to D/C - unclear what treatment options would be given ESRD on HD and immunocompromised state Ongoing difficult with airway clearance despite Q4 Albuterol followed by Flutter valve Start PD&V for clearance of secretions Will need further evaluation of CPAP needs prior to D/C, working with RT to determine if we can assess mean iPAP on hospital BiPAP to determine pressure needed Back-up plan will be to switch patient's home CPAP to auto-titrating 5- 20 cm H2O Given slight worsening in CXR (09/12), varying oxygen requirements, difficulty with airway clearance, and immunocompromise he is high risk for worsening respiratory failure at this time Favor initiating PD&V Q4H following Albuterol nebs to help clear secretions and trial of auto-titrating CPAP 5-20 cm H2O prior to D/C We will continue to follow. Above plan discussed with attending physician, Dr. Cha. Irasema Acuna APRN-STAIN SPRAYER Pager [phone] Subjective No acute events overnight. Resting comfortably this morning. Anxious to discharge from hospital. Reports ongoing chest congestion with minmal mucus clearance. Does not feel Albuterol nebs are providing much relief. Denies any shortness of breath with congestion, but feels mucus "rattling" in his chest. Review of Systems Constitutional: Negative for chills, diaphoresis and fever. Respiratory: Positive for cough and sputum production. Negative for shortness of breath and wheezing. Gastrointestinal: Negative for diarrhea, nausea and vomiting. All other systems reviewed and are negative. Objective Vital Signs: Last Filed Vital Signs: 24 Hour Range BP: 140/62 (09/14 731) Temp: 36.8 C (98.3 F) (09/14 731) Pulse: 68 (09/14 731) Respirations: 18 PER MINUTE (09/14 731) SpO2: 92 % (09/14 731) O2 Delivery: Nasal Cannula (09/14 731) SpO2 Pulse: 70 (09/12 1130) BP: (122-151)/(55-63) Temp: [36.7 C (98 F)-37.2 C (99 F)] Pulse: [63-77] Respirations: [17 PER MINUTE-22 PER MINUTE] SpO2: [92 %-98 %] O2 Delivery: Nasal Cannula Intake/Output Summary: (Last 24 hours) Intake/Output Summary (Last 24 hours) at 09/13/17918 Last data filed at 09/13/17 0005 Gross per 24 hour Intake 620 ml Output 2300 ml Net -1680 ml General: Awake, in no acute distress. HEENT: NC/AT, sclera non-icteric, moist mucus membranes. CV: regular rhythm, normal rate, no murmurs. Lungs: rhonchi bilaterally Abdomen: soft, non-tender, non-distended, normo-active bowel sounds Extremities: no edema, pedal pulses 2 (+) bilaterally Neuro: no focal deficits Skin: no rashes Lab Review Recent CBC Recent Labs 09/11/17 0350 09/12/17 0355 09/12/17 0636 09/13/17 0426 WBC 4.8 -- 4.6 -- HGB 7.2* -- 7.0* -- HCT 21.3* -- 20.8* -- PLTCT 258 -- 269 -- MCV 77.8* -- 77.3* -- INR 1.8* 1.7* -- 1.7* Recent CMP Recent Labs 09/11/17 0350 09/12/17 0355 NA 137 137 K 3.6 3.5 CL 100 100 CO2 26 26 GAP 11 11 BUN 18 27* CR 5.67* 7.31* GFR 10* 7* GLU 95 93 CA 10.2 10.2 PO4 -- 7.6* ALBUMIN 2.9* -- ALKPHOS 57 -- AST 13 -- ALT 9 -- TOTBILI 0.3 -- Other labs Pertinent labs reviewed Point of Care Testing (Last 24 hours) Radiology and other Diagnostics Review: Pertinent radiology reviewed Medications Scheduled IV PRN albuterol 0.5% (PROVENTIL; VENTOLIN) nebulizer solution 2.5 mg 2.5 mg Inhalation Q4H apixaban (ELIQUIS) tablet 5 mg 5 mg Oral BID aspirin chewable tablet 81 mg 81 mg Oral QDAY atorvastatin (LIPITOR) tablet 10 mg 10 mg Oral QDAY doxazosin (CARDURA) tablet 2 mg 2 mg Oral QDAY escitalopram oxalate (LEXAPRO) tablet 10 mg 10 mg Oral QDAY everolimus (immunosuppressive) (ZORTRESS) tablet 1 mg 1 mg Oral BID oxybutynin XL (DITROPAN XL) tablet 10 mg 10 [address]HS pantoprazole DR (PROTONIX) tablet 40 mg 40 mg Oral QDAY(21) sevelamer carbonate (RENVELA) tablet 800 mg 800 mg Oral TID w/ meals tacrolimus (PROGRAF) capsule 0.5 mg 0.5 mg Oral BID acetaminophen Q4H PRN, guaiFENesin Q4H PRN, ipratropium bromide Q4H PRN, ondansetron Q6H PRN * Faith Jordan DO - 09/13/2017 8:30 AM CDT Formatting of this note may be different from the original. General Progress Note Name: Liz Hendricks Today's Date: 09/13/2017 Admission Date: 08/31/2017 LOS: 13 days Assessment/Plan: Active Problems: Liver transplanted (HCC) Immunosuppression (HCC) Acid-fast bacteria present Primary lung adenocarcinoma (HCC) ESRD (end stage renal disease) on dialysis (HCC) GERD (gastroesophageal reflux disease) Severe malnutrition (HCC) Mycobacterial infection Primary adenocarcinoma of lung (HCC) Liz Hendricks is a 76 y.o. 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 He had PET scan today that demonstrated right upper lobe enhancement and paratracheal lymph node, as well as pleural-based enhancement. Patient failed trial back on home CPAP. Working with pulmonology to change home CPAP settings. Acute hypoxemic respiratory failure- improving -S/p rapid response this am -AB.51, pCO2 38, pO2 55 on 4 Lpm -spO2 at 81% and bumped to 11 LPM of O2 -Well's score of 8, D-dimer 1289 -Patient satting well on 3 LMP after this episode -CXR appears mildly improved from previous -CTA with small PE in lingula, consolidation present, possible pneumonia vs malignancy -Repeat CXR similar to prior -BAL from 09/07 has malignant cells from RLL, with PET scan suspicious for right plerua involvement, the concern is for rapidly-progressing FLORECNE PLAN >Pulmonology following, appreciate recs >Incentive spirometer and acapella device, with addition of chest physiotherapy device >Plan for [facility] to deliver autotitrate CPAP machine [facility] [address] >Completed course of zosyn for empiric coverage of presumed aspiration pneumonia Positive acid-fast bacteria culture -Unclear significance at this point, it is certainly possible that this is only a MAC infection. - The patient is quite immunocompromised secondary to his immunosuppression for orthotopic liver transplant. - Symptomatically, the patient is relatively unchanged over the past several months since he was hospitalized for the pneumonia. Nevertheless, will be important to rule out active tuberculosis and further workup this finding. Plan Acid-fast bacteria sputum 3 negative--will remove isolation precautions Infectious disease consulted, appreciate recs: Suspect NTM rather than TB. >Cultures and sensitivities pending >Will request follow up outpatient to discuss pursuing treatment History of orthotopic liver transplant Orthotopic liver transplant in 2012. --He has been immunosuppressed with tacrolimus and everolimus. This has been complicated by biliary stricture requiring stent. He follows with Dr. Regan Brock of our hepatology department here. --Last tacrolimus and everolimus levels (09/11) not drawn for proper trough Plan: Hepatology consulted, appreciate recs: continue with tacrolimus 0.5 BID and everolimus 1mg BID >tacrolimus (goal ~3) and everolimus (goal ~5) levels >Obtain trough tomorrow before dialysis Adenocarcinoma - Bronchoscopy and biopsies were taken at OSH on 08/13; biopsies revealed adenocarcinoma - Patient has not initiated treatment - Patient planned to establish with [facility] Medical Oncology - BAL positive for malignant cells in RLL - PET scan: Redemonstration of hypermetabolic consolidation within the right upper lobe compatible with combination of biopsy-proven adenocarcinoma with superimposed pneumonia. 2. Hypermetabolic paratracheal lymph node concerning for regional lymph node metastasis. 3. Pleural-based medial right hemithorax FDG avid lesion concerning for pleural-based metastasis. PLAN - Consult medical oncology - Consult pulmonology, as above - Will try to coordinate visit with oncology tomorrow History of end-stage renal disease (secondary to immunosuppression) on Sunday, , Sunday dialysis Nephrology consulted, appreciate recs: Patient now on M// dialysis schedule. Continue sevelamer 800 mg TID with meals for hyperphosphatemia. 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 Patient seen and discussed with Dr. Bruce. Subjective Liz Hendricks is a 76 y.o. male. Patient wore auto-titrate CPAP machine last night without desaturation. He is on 4 Lpm via NC this morning. He is resting comfortably in bed. He states he "feels more comfortable lying down". He denies headache, shortness of breath, wheezing, and abdominal pain. Medications Scheduled Meds: albuterol 0.5% (PROVENTIL; VENTOLIN) nebulizer solution 2.5 mg 2.5 mg Inhalation Q4H apixaban (ELIQUIS) tablet 5 mg 5 mg Oral BID aspirin chewable tablet 81 mg 81 mg Oral QDAY atorvastatin (LIPITOR) tablet 10 mg 10 mg Oral QDAY doxazosin (CARDURA) tablet 2 mg 2 mg Oral QDAY escitalopram oxalate (LEXAPRO) tablet 10 mg 10 mg Oral QDAY everolimus (immunosuppressive) (ZORTRESS) tablet 1 mg 1 mg Oral BID oxybutynin XL (DITROPAN XL) tablet 10 mg [address] (PROTONIX) tablet 40 mg 40 mg Oral QDAY(21) sevelamer carbonate (RENVELA) tablet 800 mg 800 mg Oral TID w/ meals tacrolimus (PROGRAF) capsule 0.5 mg 0.5 mg Oral BID Continuous Infusions: PRN and Respiratory Meds: Objective: Vital Signs: Last Filed Vital Signs: 24 Hour Range BP: 140/62 (09/14 731) Temp: 36.8 C (98.3 F) (09/14 731) Pulse: 68 (09/14 731) Respirations: 18 PER MINUTE (09/14 731) SpO2: 92 % (09/13 07) O2 Delivery: Nasal Cannula (09/14 731) SpO2 Pulse: 70 (09/12 1130) BP: (122-151)/(55-64) Temp: [36.7 C (98 F)-37.2 C (99 F)] Pulse: [63-77] Respirations: [17 PER MINUTE-22 PER MINUTE] SpO2: [92 %-98 %] O2 Delivery: Nasal Cannula Intensity Pain Scale 0-10 (Pain 1): Asleep (09/13/17 0005) Vitals: 09/10/17 1400 09/12/17 0655 09/12/17 1116 Weight: 94.6 kg (208 lb 8.9 oz) 95.1 kg (209 lb 10.5 oz) 93.1 kg (205 lb 4 oz) Intake/Output Summary: (Last 24 hours) Intake/Output Summary (Last 24 hours) at 09/13/17 0831 Last data filed at 09/13/17 0005 Gross per 24 hour Intake 620 ml Output 2300 ml Net -1680 ml Stool Occurrence: 1 Physical Exam General: Alert. No acute distress HEENT: NCAT. Moist mucous membranes. Lungs: Coarse rales bilateral lower lobes Cardiac: Regular rate and rhythm Abdomen: Soft. Non-tender, non-distended. Normoactive bowel sounds Extremities: Bilateral lower extremities without swelling/erythema Neuro: Cranial nerves grossly intact. Moves all extremities spontaneously Psych: Pleasant and cooperative Lab Review 24-hour labs: Results for orders placed or performed during the hospital encounter of (from the past 24 hour(s)) EVEROLIMUS BLOOD Collection Time: 09/12/17 12:10 PM Result Value Ref Range Everolimus <2.0 (L) 3 - 10 ng/mL TACROLIMUS LEVEL([id number]) Collection Time: 09/12/17 12:10 PM Result Value Ref Range Tacrolimus 1.8 (L) 2 - 15 NG/ML PROTIME INR (PT) Collection Time: 09/13/17 4:26 AM Result Value Ref Range INR 1.7 (H) 0.8 - 1.2 Point of Care Testing (Last 24 hours) Radiology and other Diagnostics Review: Pertinent radiology reviewed. CXR: 1. Interval placement of a right IJ central venous catheter as described above. 2. Unchanged dense alveolar consolidation in the right upper lobe, compatible with the known adenocarcinoma, with patchy opacities in the lung bases, which may represent superimposed pneumonia. Faith Jordan DO PGY-1 Pager [phone] Associated attestation - Monalisa Bruce MD - 09/13/2017 8:30 PM CDT Formatting of this note may be different from the original. ATTESTATION I personally performed the yeh portions of the E/M visit, discussed case with resident and concur with resident documentation of history, physical exam, assessment, and treatment plan unless otherwise noted. Total time of visit was 50 minutes, with 40 minutes spent in discussing goals of care with patient Liz is at peace with his situation and understands that there is a high likelihood that systemic chemotherapy will not be an option given his functional status as well as his multiple co-morbidities.He understands that he otherwise has limited time to live given his disease extent and his degree of debiity. He feels that meeting with Dr Ventura next week is important for his family and his children that would like to attend and therefore he would like to continue to have this opportunity if he can stay well enough to attend that meeting, I plan to contact Dr Ventura to discuss Staff name: Monalisa Bruce MD Date: 09/13/2017 * Clinton Rosales MD - 09/12/2017 5:27 PM CDT Formatting of this note may be different from the original. Infectious Diseases Progress Note Today's Date: 09/12/2017 Admission Date: 08/31/2017 Reason for this consultation: Positive AFB from mass biopsy at OSH. History of OLT in 2012 Consult Type: Co-Management w/Signed Orders Assessment: Lung mass with JERED growth on biopsy culture July 2017 Adenocarcinoma of the lung - 2 months ago the patient was hospitalized at an outside facility for pneumonia. During that hospitalization he underwent bronchoscopy and biopsies were taken of the mass (08/13). This mass showed adenocarcinoma. -08/13 mass bx also had AFB culture sent. + on 08/30. ID was contacted on 08/31 for advice and reportedly recommended admission. -On admission he felt generally unchanged, he did have significant weakness and lost 30 pounds over the prior 10 weeks. He did have a dry cough without any hemoptysis. He had not been incarcerated or had significant travel (only intl was decades ago to [place] and [place]) or TB exposure. -3 AFB sputum cultures were ordered, is placed on airborne precautions, no antibiotics were started and ID was consulted. -No leukocytosis, afebrile. -Regarding the culture that was positive from the mass this was + on 08/30 and sent for ID to the state lab. 09/04 confirmed JERED, requested susceptibilities be sent, discussed with lab employee Monalisa Mccrary, sent to [facility] - Repeat AFB sputums x 3 smear neg, cultures pending - 09/11/17 PET/CT with hypermetabolic RUL consolidation with hypermetabolic paratracheal LN, and hypermetabolic pleural-based medial right hemithorax suggestive of pleural metastasis Possible secondary bacterial pneumonia Aspiration? -Decompensated overnight 09/03-, possible aspiration broad abx with Vanc and Pip /tazo -09/06 BAL with hyperdynamic airways with slight erythema noted; WBC 440, gm stain nos, light growth of C.albicans on cx, no sig tian, and AFB so far negative as of 09/11. 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 ID requested susceptibilities on 03/14, sent to [facility] for susceptibilities -Unclear need for treatment vs monitoring. Dr Lynn will follow as outpatient and discuss potential treatment options. JERED not the cause of current symptoms. -09/06 BAL AFB smear neg, culture pending -Monitor off of systemic antimicrobials for now, but low threshold to resume antibiotics if he clinically worsenings -Encouraged pulmonary hygiene - CXR today with persistent right sided opacities -Will follow bacterial and AFB cultures from BAL 09/06 -Watch for antimicrobial toxicities -Will follow Patient discussed with Dr. Rosales. Faith Redd MD Infectious Disease Fellow Pager: [phone] ATTESTATION I personally performed the yeh portions of the E/M visit, discussed case with Dr Redd and concur with her documentation of history, physical exam, assessment , and treatment plan (unless modified by me). Where appropriate, addendums were made to the above. Clinton Bobby Date: 09/12/2017 History of Present Illness This is a 76-year-old man with a history of liver transplant in 2012 with disease (Suarez plus alcoholic cirrhosis) on everolimus plus tacrolimus for immunosuppression. He also has a history of end-stage renal disease on hemodialysis and diabetes mellitus.Recent dx of lung adenocarcinoma. The lung mass bx subsequently is growing an AFB, found to be JERED. 3 negative AFB smears, cx pending. S/p bronch with BAL on 09/06, WBC 440, cell too degenerated to perform diff, gm stain no organisms, cultures in process, Biopsies also obtained for path/ cytology - no lesional tissue identified Afebrile. Increased O2 requirement on CPAP last night. Tolerates BiPAP better. Dsypnea with activity, up to chair with OT this AM. Now with more wet cough, unable to fully cough up secretions. No f/c/diaphoresis, no rash, no abd pain, no MCKENZIE. Tired today after HD. Thought he might be going home. Antimicrobial Start date End date Pip/tazo 09/04/17 09/10/17 Vancomycin 09/04/17 09/07/17 Estimated Creatinine Clearance: 11.7 mL/min (A) (based on SCr of 7.31 mg/dL (H)) . Medications Scheduled Meds: apixaban (ELIQUIS) tablet 5 mg 5 mg Oral BID aspirin chewable tablet 81 mg 81 mg Oral QDAY atorvastatin (LIPITOR) tablet 10 mg 10 mg Oral QDAY doxazosin (CARDURA) tablet 2 mg 2 mg Oral QDAY escitalopram oxalate (LEXAPRO) tablet 10 mg 10 mg Oral QDAY everolimus (immunosuppressive) (ZORTRESS) tablet 1 mg 1 mg Oral BID oxybutynin XL (DITROPAN XL) tablet 10 mg 10 mg Oral QHS pantoprazole DR (PROTONIX) tablet 40 mg 40 mg Oral QDAY(21) sevelamer carbonate (RENVELA) tablet 800 mg 800 mg Oral TID w/ meals tacrolimus (PROGRAF) capsule 0.5 mg 0.5 mg Oral BID Continuous Infusions: PRN and Respiratory Meds:acetaminophen Q4H PRN, albuterol 0.5% Q4H PRN, ipratropium bromide Q4H PRN, ondansetron Q6H PRN Allergies Allergies Allergen Reactions Adhesive BLISTERS Skin tears Physical Examination Vital Signs: Last Vital Signs: 24 Hour Range BP: 130/58 (09/13 1627) Temp: 37.1 C (98.7 F) (09/13 1627) Pulse: 71 (09/13 1627) Respirations: 20 PER MINUTE (09/13 1627) SpO2: 94 % (09/13 1627) O2 Delivery: Nasal Cannula (09/13 1627) SpO2 Pulse: 70 (09/12 1130) BP: (122-151)/(55-67) Temp: [36.4 C (97.6 F)-37.1 C (98.8 F)] Pulse: [63-74] Respirations: [18 PER MINUTE-22 PER MINUTE] SpO2: [92 %-98 %] O2 Delivery: Nasal Cannula General: alert, oriented x 3, in NAD, looks tired HENT: MMM, oropharynx clear Neck: supple, no lymphadenopathy Lungs: coarse breath sounds in right lung thomason > left, no wheezing Heart: regular rhythm, reg rate, no murmur Abdomen: soft, non-tender, non-distended, normoactive bowel sounds Ext: no edema but some mild tenderness with squeezing of his calves Skin: no rashes Lines: PIV, RUE AV fistula /10 tunneled non cuffed RIJ 2L CVC Lab Review Hematology Recent Labs 09/10/17 0420 09/11/17 0350 09/12/17 0355 09/12/17 0636 WBC 4.4* 4.8 -- 4.6 HGB 7.1* 7.2* -- 7.0* HCT 21.0* 21.3* -- 20.8* PLTCT 233 258 -- 269 INR 1.5* 1.8* 1.7* -- Chemistry Recent Labs 09/10/17 0420 09/11/17 0350 09/12/17 0355 NA 135* 137 137 K 3.6 3.6 3.5 CL 98 100 100 CO2 25 26 26 BUN 33* 18 27* CR 8.63* 5.67* 7.31* GFR 6* 10* 7* GLU 86 95 93 CA 10.3 10.2 10.2 PO4 -- -- 7.6* ALBUMIN 2.8* 2.9* -- ALKPHOS 54 57 -- AST 8 13 -- ALT 5* 9 -- TOTBILI 0.3 0.3 -- Microbiology, Radiology and other Diagnostics Review Microbiology data reviewed. 08/31/17: BC x2 NGTD Pertinent radiology images viewed. * Irasema Acuna, ALICIA-STAIN SPRAYER - 09/12/2017 3:24 PM CDT Formatting of this note may be different from the original. Pulmonary Progress Note Name: Liz Hendricks Today's Date: 09/12/2017 Admission Date: 08/31/2017 LOS: 12 days Impression: Mr. 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 Acute hypoxic respiratory failure ? Max requirement of 11L ---> down to 4L this AM ? Bilateral lower lobe consolidations on CTA (09/04/17) ? spiked a temp to 101 on 09/03. Patient reports was vomiting episode prior to O2 needs starting- ?aspiration. ? small acute segmental PE in the lingula. Normally it is unlikely that this small PE could cause this degree of hypoxemia, however this is in one of the few areas of normal lung for him so this may account for the degree of hypoxemia we see 2. Adenocarcinoma of the lung- biopsy consistent with adenocarcinoma with lepidic pattern of growth ? onc has requested further testing on biopsy samples including PDL1, ALK, ROS1, EGFR ? onc recommending PET CT for staging ? BAL (09/06/17) + malignant cells 3. Mycobacterium Avium Intracellularae ? AFB sputum here negative x 3 ? bronchoscopy with BAL and TBB (09/07/17) - hyperdynamic airways with slight erythema noted BAL: RBC 800; WBC 440; cells too degenerated for differentiations; atypical cells present Gram stain and bacterial cultures negative 4. Pulmonary infiltrate ? Bibasilar consolidation concerning for superimposed pneumonia ? Reported episode of vomiting prior to becoming febrile 09/03 - ? Aspiration pneumonia ? Zosyn completed 09/10/17 ? Sputum AFB neg x 3 ? PET/CT with hypermetabolic RUL consolidation with hypermetabolic paratracheal LN, and hypermetabolic pleural-based medial right hemithorax suggestive of pleural metastasis 5. OLT (2012) ? Tacrolimus and everolimus daily ? Follows with Dr. Brock 6. ESRD s/t immunosuppression ? T/TR/Sat dialysis 7. PE ? CTA Chest (09/04/17) w/ small acute segmental pulmonary embolus within the lingula ? Continue Apixaban 8. MARGARET ? PSG approximately 10 years ago at [facility] ? Auto-titrating CPAP (max IPAP 11) ? DME: [employer] ? Transitioned to BiPAP / d/t increased O2 requirements 09/06 during decompensation event Recommendations: Increased O2 requirement on home CPAP overnight Unable to download hospital BiPAP to assess mean iPAP to determine adequate settings Ok to continue hospital BiPAP tonight Slight worsening of RUL infiltrate on CXR today Continue aggressive pulmonary hygiene to assist with mucus clearance; Albuterol Q4 followed by Flutter Valve 4 x day unclear AFB cultures negative to date; cyto positive for malignant cells Completed Zosyn 09/10/17 WBC stable Low threshold to resume abx coverage for HCAP given increase in O2 requirement and sputum production We will continue to follow. Above plan discussed with attending physician, Dr. Semaj Acuna APRN-STAIN SPRAYER Pager [phone] Subjective Was not able to tolerate home CPAP last night due to desaturation - was placed back on BiPAP due to increased O2 requirement. Pt was then taken to HD and noted to have increased O2 requirement with lowes SpO2 noted to be 89% and was titrate from 5 - 10L. Evaluated patient during dialysis, pt was very drowsy. HD RN does report patient was sleepy upon arrival to dialysis this AM. Pt reports feeling the same - continues to have significant mucus that is difficult to clear. Review of Systems Constitutional: Negative for chills, diaphoresis and fever. Respiratory: Positive for cough and sputum production. Negative for shortness of breath. Cardiovascular: Negative for leg swelling. Gastrointestinal: Negative for diarrhea, nausea and vomiting. All other systems reviewed and are negative. Objective Vital Signs: Last Filed Vital Signs: 24 Hour Range BP: 132/62 (09/12 1201) Temp: 37.1 C (98.7 F) (09/12 1201) Pulse: 73 (09/12 1201) Respirations: 20 PER MINUTE (09/12 120) SpO2: 94 % (09/12 120) O2 Delivery: Nasal Cannula (09/12 120) SpO2 Pulse: 70 (09/12 1130) BP: (122-151)/(55-67) Temp: [36.4 C (97.6 F)-37.1 C (98.8 F)] Pulse: [63-74] Respirations: [18 PER MINUTE-22 PER MINUTE] SpO2: [92 %-98 %] O2 Delivery: Nasal Cannula Intake/Output Summary: (Last 24 hours) Intake/Output Summary (Last 24 hours) at 09/12/17 1524 Last data filed at 09/12/17 1116 Gross per 24 hour Intake 340 ml Output 2300 ml Net -1960 ml General: Awake, in no acute distress. HEENT: NC/AT, sclera non-icteric, moist mucus membranes. CV: regular rhythm, normal rate, no murmurs. Lungs: decreased bilateral lower lobes Abdomen: soft, non-tender, non-distended, normo-active bowel sounds Extremities: no edema, pedal pulses 2 (+) bilaterally Neuro: no focal deficits Skin: no rashes Lab Review Recent CBC Recent Labs 09/10/17 0420 09/11/17 0350 09/12/17 0355 09/12/17 0636 WBC 4.4* 4.8 -- 4.6 HGB 7.1* 7.2* -- 7.0* HCT 21.0* 21.3* -- 20.8* PLTCT 233 258 -- 269 MCV 77.0* 77.8* -- 77.3* INR 1.5* 1.8* 1.7* -- Recent CMP Recent Labs 09/10/17 0420 09/11/17 0350 09/12/17 0355 NA 135* 137 137 K 3.6 3.6 3.5 CL 98 100 100 CO2 25 26 26 GAP 12 11 11 BUN 33* 18 27* CR 8.63* 5.67* 7.31* GFR 6* 10* 7* GLU 86 95 93 CA 10.3 10.2 10.2 PO4 -- -- 7.6* ALBUMIN 2.8* 2.9* -- ALKPHOS 54 57 -- AST 8 13 -- ALT 5* 9 -- TOTBILI 0.3 0.3 -- Other labs Specimen Description BRONCHIAL ALVEOLAR LAVAGE, RLL Special Requests NONE Acid Fast Stain NO ACID FAST BACILLI SEEN Culture NO GROWTH OF MYCOBACTERIA TO DATE Report Status A: Bronchial Alveolar Lavage-RLL History: 76 year old male with 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 Gross Description: ( 1 ThinPrep, 1 DQ direct smear, 1 GMS direct smear, 1 cell block) 10ml clear colorless fluid ######################################################################## Final Diagnosis: A. Bronchial Alveolar Lavage-RLL: Positive for malignant cells; consistent with lung adenocarcinoma. The Grocott stain is negative for Pneumocystis and other fungal organisms. Please also see concurrent surgical pathology report ([id number]). See comment. Comment: Immunohistochemical stains performed on the cell block show the tumor cells are positive for TTF-1 and negative for p40 supporting the above diagnosis. The cell block is scantly cellular. Point of Care Testing (Last 24 hours) Glucose: 93 (09/12/17 0355) Radiology and other Diagnostics Review: CHEST SINGLE VIEW (09/12/17) IMPRESSION 1. Interval placement of a right IJ central venous catheter as described above. 2. Unchanged dense alveolar consolidation in the right upper lobe, compatible with the known adenocarcinoma, with patchy opacities in the lung bases, which may represent superimposed pneumonia. Medications Scheduled IV PRN apixaban (ELIQUIS) tablet 5 mg 5 mg Oral BID aspirin chewable tablet 81 mg 81 mg Oral QDAY atorvastatin (LIPITOR) tablet 10 mg 10 mg Oral QDAY doxazosin (CARDURA) tablet 2 mg 2 mg Oral QDAY escitalopram oxalate (LEXAPRO) tablet 10 mg 10 mg Oral QDAY everolimus (immunosuppressive) (ZORTRESS) tablet 1 mg 1 mg Oral BID oxybutynin XL (DITROPAN XL) tablet 10 mg 10 mg Oral QHS pantoprazole DR (PROTONIX) tablet 40 mg 40 mg Oral QDAY(21) sevelamer carbonate (RENVELA) tablet 800 mg 800 mg Oral TID w/ meals tacrolimus (PROGRAF) capsule 0.5 mg 0.5 mg Oral BID acetaminophen Q4H PRN, albuterol 0.5% Q4H PRN, ipratropium bromide Q4H PRN, ondansetron Q6H PRN * Faith Jordan DO - 09/12/2017 3:10 PM CDT Formatting of this note may be different from the original. General Progress Note Name: Liz Hendricks Today's Date: 09/12/2017 Admission Date: 08/31/2017 LOS: 12 days Assessment/Plan: Active Problems: Liver transplanted (HCC) Immunosuppression (HCC) Acid-fast bacteria present Primary lung adenocarcinoma (HCC) ESRD (end stage renal disease) on dialysis (HCC) GERD (gastroesophageal reflux disease) Severe malnutrition (HCC) Mycobacterial infection Primary adenocarcinoma of lung (HCC) Liz Hendricks is a 76 y.o. 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 He had PET scan today that demonstrated right upper lobe enhancement and paratracheal lymph node, as well as pleural-based enhancement. Patient failed trial back on home CPAP. Working with pulmonology to change home CPAP settings. Acute hypoxemic respiratory failure- improving -S/p rapid response this am -AB.51, pCO2 38, pO2 55 on 4 Lpm -spO2 at 81% and bumped to 11 LPM of O2 -Well's score of 8, D-dimer 1289 -Patient satting well on 3 LMP after this episode -CXR appears mildly improved from previous -CTA with small PE in lingula, consolidation present, possible pneumonia vs malignancy -Repeat CXR today similar to prior PLAN >Pulmonology following, appreciate recs >Incentive spirometer and acapella device >Trial home CPAP machine tonight with 5L O2-->patient required bipap again >Pumonology to assist with changing his home CPAP settings >Completed course of zosyn for empiric coverage of presumed aspiration pneumonia Positive acid-fast bacteria culture Assessment -Unclear significance at this point, it is certainly possible that this is only a MAC infection. - The patient is quite immunocompromised secondary to his immunosuppression for orthotopic liver transplant. - Symptomatically, the patient is relatively unchanged over the past several months since he was hospitalized for the pneumonia. Nevertheless, will be important to rule out active tuberculosis and further workup this finding. Plan Acid-fast bacteria sputum 3 negative--will remove isolation precautions Infectious disease consulted, appreciate recs: Suspect NTM rather than TB. >Cultures and sensitivities pending >Will request follow up outpatient to discuss pursuing treatment History of orthotopic liver transplant Orthotopic liver transplant in 2012. --He has been immunosuppressed with tacrolimus and everolimus. This has been complicated by biliary stricture requiring stent. He follows with Dr. Regan Brock of our hepatology department here. --Last tacrolimus and everolimus levels (09/11) not drawn for proper trough Plan: Hepatology consulted, appreciate recs: continue with tacrolimus 0.5 BID and everolimus 1mg BID >tacrolimus (goal ~3) and everolimus (goal ~5) levels >Obtain trough tomorrow before dialysis Adenocarcinoma - Bronchoscopy and biopsies were taken at OSH on 08/13; biopsies revealed adenocarcinoma - Patient has not initiated treatment - Patient planned to establish with [facility] this week but has been hospitalized Plan: - Consult medical oncology >Patient will get PET tomorrow - Consult pulmonology, as above >Repeat bronchoscopy studies with cytogenetics and path pending History of end-stage renal disease (secondary to immunosuppression) on Sunday, , Sunday dialysis Nephrology consulted, appreciate recs: Patient now on M// dialysis schedule. Continue sevelamer 800 mg TID with meals for hyperphosphatemia. 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 Patient seen and discussed with Dr. Bruce. Subjective Liz Hendricks is a 76 y.o. male. Patient wore home CPAP last night and had desaturation to 87% on 6L. The O2 was increased and he continued to have desaturations on increased O2 and he was therefore changed to hospital CPAP on autotitrate. He is on increased nasal canula during dialysis at 10Lpm. Medications Scheduled Meds: apixaban (ELIQUIS) tablet 5 mg 5 mg Oral BID aspirin chewable tablet 81 mg 81 mg Oral QDAY atorvastatin (LIPITOR) tablet 10 mg 10 mg Oral QDAY doxazosin (CARDURA) tablet 2 mg 2 mg Oral QDAY escitalopram oxalate (LEXAPRO) tablet 10 mg 10 mg Oral QDAY everolimus (immunosuppressive) (ZORTRESS) tablet 1 mg 1 mg Oral BID oxybutynin XL (DITROPAN XL) tablet 10 mg 10 [address]HS pantoprazole DR (PROTONIX) tablet 40 mg 40 mg Oral QDAY(21) sevelamer carbonate (RENVELA) tablet 800 mg 800 mg Oral TID w/ meals tacrolimus (PROGRAF) capsule 0.5 mg 0.5 mg Oral BID Continuous Infusions: PRN and Respiratory Meds: Objective: Vital Signs: Last Filed Vital Signs: 24 Hour Range BP: 132/62 (09/12 1201) Temp: 37.1 C (98.7 F) (09/12 120) Pulse: 73 (09/12 1201) Respirations: 20 PER MINUTE (09/12 1201) SpO2: 94 % (09/12 1201) O2 Delivery: Nasal Cannula (09/12 120) SpO2 Pulse: 70 (09/12 1130) BP: (122-151)/(55-67) Temp: [36.4 C (97.6 F)-37.1 C (98.8 F)] Pulse: [63-74] Respirations: [18 PER MINUTE-22 PER MINUTE] SpO2: [92 %-98 %] O2 Delivery: Nasal Cannula Intensity Pain Scale 0-10 (Pain 1): Asleep (09/12/17 0345) Vitals: 09/10/17 1400 09/12/17 0655 09/12/17 1116 Weight: 94.6 kg (208 lb 8.9 oz) 95.1 kg (209 lb 10.5 oz) 93.1 kg (205 lb 4 oz) Intake/Output Summary: (Last 24 hours) Intake/Output Summary (Last 24 hours) at 09/12/17 1510 Last data filed at 09/12/17 1116 Gross per 24 hour Intake 340 ml Output 2300 ml Net -1960 ml Stool Occurrence: 1 Physical Exam General: Alert. No acute distress HEENT: NCAT. Moist mucous membranes. Lungs: Coarse rales bilateral lower lobes Cardiac: Regular rate and rhythm Abdomen: Soft. Non-tender, non-distended. Normoactive bowel sounds Extremities: Bilateral lower extremities without swelling/erythema Neuro: Cranial nerves grossly intact. Moves all extremities spontaneously Psych: Pleasant and cooperative Lab Review 24-hour labs: Results for orders placed or performed during the hospital encounter of (from the past 24 hour(s)) PROTIME INR (PT) Collection Time: 09/12/17 3:55 AM Result Value Ref Range INR 1.7 (H) 0.8 - 1.2 PHOSPHORUS Collection Time: 09/12/17 3:55 AM Result Value Ref Range Phosphorus 7.6 (H) 2.0 - 4.0 MG/DL BASIC METABOLIC PANEL Collection Time: 09/12/17 3:55 AM Result Value Ref Range Sodium 137 137 - [...] MG/DL eGFR Non 7 (L) >60 mL/min eGFR 9 (L) >60 mL/min CBC Collection Time: 09/12/17 6:36 AM Result Value Ref Range White Blood Cells 4.6 [...] MPV 6.1 (L) 7 - 11 FL EVEROLIMUS BLOOD Collection Time: 09/12/17 12:10 PM Result Value Ref Range Everolimus <2.0 (L) 3 - 10 ng/mL TACROLIMUS LEVEL([id number]) Collection Time: 09/12/17 12:10 PM Result Value Ref Range Tacrolimus 1.8 (L) 2 - 15 NG/ML Point of Care Testing (Last 24 hours) Glucose: 93 (09/12/17 0355) Radiology and other Diagnostics Review: Pertinent radiology reviewed. CXR: 1. Interval placement of a right IJ central venous catheter as described above. 2. Unchanged dense alveolar consolidation in the right upper lobe, compatible with the known adenocarcinoma, with patchy opacities in the lung bases, which may represent superimposed pneumonia. Faith Jordan DO PGY-1 Pager [phone] Associated attestation - Monalisa Bruce MD - 09/12/2017 9:55 PM CDT Formatting of this note may be different from the original. ATTESTATION I personally performed the yeh portions of the E/M visit, discussed case with resident and concur with resident documentation of history, physical exam, assessment, and treatment plan unless otherwise noted. Staff name: Monalisa Bruce MD Date: 09/12/2017 * Omer Alvarado MD - 09/12/2017 3:06 PM CDT I have seen and examined the patient on HD today. Pt reports no new complaints. On exam, pt alert and in NAD, lungs w/ rhonchi, heart RR, no edema , RUE AVF w/ some pressure alarms in mid-run. BP and lytes stable. Plan on 2 liters of UF today as BP tolerates. Given high access pressure, we backed off of BFR midway through the treatment. Will attempt gradual increase in flow rates back to goal of at least 350 ml/min. * Dilma Ureña - 09/12/2017 1:50 PM CDT CLINICAL NUTRITION Clinical Nutrition Follow-Up Summary Nutrition Assessment of Patient: Malnutrition Assessment: Malnutrition present Malnutrition Context: ICD-10 code E43: Chronic illness/Severe malnutrition Current Oral Intake: Improving, Marginally Adequate Estimated Calorie Needs: 2195-1541 kcal (25-28 kcal/kg desired wt) Estimated Protein Needs: 116 g (1.3 g/kg desired wt) Oral Diet Order: Regular Liz Hendricks is a 76 y.o. 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 At the time of biopsy, they also obtain acid-fast bacteria cultures which turned positive. Infectious disease was contacted and the patient was accepted for admission 08/31. [facility] facility [facility]. Pt was eating lunch during visit , mostly spoke with family at bedside. He missed breakfast this a.m. d/t dialysis, so appetite is currently really good. He has been eating at least 2 meals a day, 50-100% of meals. He had a milkshake last night and drank a good amount of it. 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 RD discussed Nepro shakes, and encouraged intake of these prior to dialysis sessions. Note phos elevated at 7.6 today prior to HD; phos binder on board Recommendation: If phos remains persistently elevated, REC change to low phos diet Intervention / Plan: Will order Nepro prn Will continue to monitor PO intake adequacy/tolerance Will continue to monitor GI function, wt trends, labs Nutrition Diagnosis: Nutrition Diagnosis: Inadequate energy intake Etiology: poor appetite Signs & Symptoms: pt reports eating 1 meal a day for several months; wt loss of 14% in 4 months Goals: Patient to consume >85% of meals/supplements Time Frame: Throughout Stay Status: Met;Ongoing Dilma Luetkemeyer, MS, RD, LD Pager: [phone] Phone: [phone] * Jonathon Munguia MD - 09/12/2017 12:55 PM CDT Please continue current doses of tacrolimus 0.5 mg BID, and everolimus 1 mg BID Trough level goal for tacro is around 3 Trough level goal for everolimus is around 5. Last tacro was 1.7 on 09/11, last everolimus 3.6 on 09/11,but weren't trough. Please make sure to check trough levels ( after 12 hours from the night before dose, before the morning dose. Please recheck trough levels tomorrow, then daily Rest of the plan per primary team. Plan was discussed with Dr. Li Munguia MD Gastroenterology and hepatology fellow Pager: [phone] * Marie Santillan, OT - 09/12/2017 11:30 AM CDT OCCUPATIONAL THERAPY NO TREATMENT NOTE The patient was not seen due to: Pt off unit this am to dialysis. OT to follow up as able for therapy. Therapist: Marie Santillan OTR/L Date: 09/12/2017 * Uziel Lincoln - 09/12/2017 10:05 AM CDT PHYSICAL THERAPY NOTE Patient was unavailable for physical therapy. Pt off unit for dialysis. Physical therapy will continue to follow and provide intervention as indicated. Therapist: Uziel Lincoln, Student Physical therapist research assistant professor Date: 09/12/2017 Associated attestation - Jenni Anaya PTA - 09/12/2017 11:22 AM CDT I was present and involved in directing the care of the patient throughout the physical therapy session. * Ilda Uribe - 09/12/2017 6:46 AM CDT Pt off unit to dialysis * Wilma Killian, RT - 09/12/2017 12:21 AM CDT Patient was seen initially at 21:14 by this RT. Patient had placed himself on home cpap device prior to my visit and SpO2 was 95% with 5L O2 bleed in. At 22: 52, this RT was paged by RN for oxygen desaturation. When this RT arrived, patient SpO2 was 87% with 7L O2 bleed in. Chin strap was placed for use of nasal pillows interface. Patient stated that he felt he "lost weight in his face ", interface straps were tightened. SpO2 increased to 92%. At 23:30, this RT was paged again by RN for another oxygen desaturation. On arrival, patient SpO2 was 87% on 7L O2 bleed in. Patient was then placed on hospital cpap on auto titrate with 5L bleed in, SpO2 increased to 94%. Will continue to monitor. * Faith Jordan DO - 09/11/2017 3:33 PM CDT Formatting of this note may be different from the original. General Progress Note Name: Liz Hendricks Today's Date: 09/11/2017 Admission Date: 08/31/2017 LOS: 11 days Assessment/Plan: Active Problems: Liver transplanted (HCC) Immunosuppression (HCC) Acid-fast bacteria present Primary lung adenocarcinoma (HCC) ESRD (end stage renal disease) on dialysis (HCC) GERD (gastroesophageal reflux disease) Severe malnutrition (HCC) Mycobacterial infection Primary adenocarcinoma of lung (HCC) Liz Hendricks is a 76 y.o. 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 He had PET scan today that demonstrated right upper lobe enhancement and paratracheal lymph node, as well as pleural-based enhancement. Patient will have trial back on home CPAP then dialyze early tomorrow before discharge to SNF. Acute hypoxemic respiratory failure- improving -S/p rapid response this am -AB.51, pCO2 38, pO2 55 on 4 Lpm -spO2 at 81% and bumped to 11 LPM of O2 -Well's score of 8, D-dimer 1289 -Patient satting well on 3 LMP after this episode -CXR appears mildly improved from previous -CTA with small PE in lingula, consolidation present, possible pneumonia vs malignancy PLAN >Pulmonology following, appreciate recs >Incentive spirometer and acapella device >Trial home CPAP machine tonight with 5L O2 >Completed course of zosyn for empiric coverage of presumed aspiration pneumonia Positive acid-fast bacteria culture Assessment -Unclear significance at this point, it is certainly possible that this is only a MAC infection. - The patient is quite immunocompromised secondary to his immunosuppression for orthotopic liver transplant. - Symptomatically, the patient is relatively unchanged over the past several months since he was hospitalized for the pneumonia. Nevertheless, will be important to rule out active tuberculosis and further workup this finding. Plan Acid-fast bacteria sputum 3 negative--will remove isolation precautions Infectious disease consulted, appreciate recs: Suspect NTM rather than TB. >Cultures and sensitivities pending >Will request follow up outpatient to discuss pursuing treatment History of orthotopic liver transplant Orthotopic liver transplant in 2012. --He has been immunosuppressed with tacrolimus and everolimus. This has been complicated by biliary stricture requiring stent. He follows with Dr. Regan Brock of our hepatology department here. --Last tacrolimus and everolimus levels (09/11) not drawn for proper trough Plan: Hepatology consulted, appreciate recs: continue with tacrolimus 0.5 BID and everolimus 1mg BID >tacrolimus (goal ~3) and everolimus (goal ~5) levels >Obtain trough tomorrow before dialysis Adenocarcinoma - Bronchoscopy and biopsies were taken at OSH on 08/13; biopsies revealed adenocarcinoma - Patient has not initiated treatment - Patient planned to establish with [facility] On[facility] this week but has been hospitalized Plan: - Consult medical oncology >Patient will get PET tomorrow - Consult pulmonology, as above >Repeat bronchoscopy studies with cytogenetics and path pending History of end-stage renal disease (secondary to immunosuppression) on Sunday, , Sunday dialysis Nephrology consulted, appreciate recs: Patient now on // dialysis schedule. Continue sevelamer 800 mg TID with meals for hyperphosphatemia. 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 Patient seen and discussed with Dr. Bruce. Subjective Liz Hendricks is a 76 y.o. male. Patient is down for PET this am. Patient's reports episodes of agitation last night. She thinks he is just tired of being in the hospital. Medications Scheduled Meds: apixaban (ELIQUIS) tablet 5 mg 5 mg Oral BID aspirin chewable tablet 81 mg 81 mg Oral QDAY atorvastatin (LIPITOR) tablet 10 mg 10 mg Oral QDAY doxazosin (CARDURA) tablet 2 mg 2 mg Oral QDAY escitalopram oxalate (LEXAPRO) tablet 10 mg 10 mg Oral QDAY everolimus (immunosuppressive) (ZORTRESS) tablet 1 mg 1 mg Oral BID oxybutynin XL (DITROPAN XL) tablet 10 mg 10 mg Oral QHS pantoprazole DR (PROTONIX) tablet 40 mg 40 mg Oral QDAY(21) sevelamer carbonate (RENVELA) tablet 800 mg 800 mg Oral TID w/ meals tacrolimus (PROGRAF) capsule 0.5 mg 0.5 mg Oral BID Continuous Infusions: PRN and Respiratory Meds: Objective: Vital Signs: Last Filed Vital Signs: 24 Hour Range BP: 141/67 (09/11 1509) Temp: 36.4 C (97.6 F) (09/11 1509) Pulse: 69 (09/11 1509) Respirations: 20 PER MINUTE (09/11 1509) SpO2: 96 % (09/11 1509) O2 Delivery: Nasal Cannula (09/11 1509) Height: 188 cm (74") (09/11 0725) BP: (137-142)/(59-73) Temp: [36.4 C (97.6 F)-36.9 C (98.5 F)] Pulse: [69-78] Respirations: [19 PER MINUTE-21 PER MINUTE] SpO2: [93 %-97 %] O2 Delivery: Nasal Cannula Vitals: 09/07/17 1809 09/10/17 0938 09/10/17 1400 Weight: 97 kg (213 lb 13.5 oz) 96.1 kg (211 lb 13.8 oz) 94.6 kg (208 lb 8.9 oz) Intake/Output Summary: (Last 24 hours) Intake/Output Summary (Last 24 hours) at 09/11/17 1534 Last data filed at 09/10/17 2330 Gross per 24 hour Intake 120 ml Output 0 ml Net 120 ml Stool Occurrence: 1 Physical Exam General: Alert. No acute distress HEENT: NCAT. Moist mucous membranes. Lungs: Coarse rales bilateral lower lobes Cardiac: Regular rate and rhythm Abdomen: Soft. Non-tender, non-distended. Normoactive bowel sounds Extremities: Bilateral lower extremities without swelling/erythema Neuro: Cranial nerves grossly intact. Moves all extremities spontaneously Psych: Pleasant and cooperative Lab Review 24-hour labs: Results for orders placed or performed during the hospital encounter of (from the past 24 hour(s)) PROTIME INR (PT) Collection Time: 09/11/17 3:50 AM Result Value Ref Range INR 1.8 (H) 0.8 - 1.2 CBC Collection Time: 09/11/17 3:50 AM Result Value Ref Range White Blood Cells 4.8 4.5 - 11.0 K/UL RBC 2.73 (L) 4.4 - 5.5 M/UL Hemoglobin 7.2 (L) 13.5 - 16.5 GM/DL Hematocrit 21.3 (L) 40 - 50 % MCV 77.8 (L) 80 - 100 FL MCH 26.5 26 - 34 PG MCHC 34.0 32.0 - 36.0 G/DL RDW 19.4 (H) 11 - 15 % Platelet Count 258 150 - 400 K/UL MPV 6.2 (L) 7 - 11 FL COMPREHENSIVE METABOLIC PANEL Collection Time: 09/11/17 3:50 AM Result Value Ref Range Sodium 137 137 - [...] 12 eGFR Non 10 (L) >60 mL/min eGFR 12 (L) >60 mL/min IONIZED CALCIUM Collection Time: 09/11/17 3:50 AM Result Value Ref Range Ionized Calcium 1.33 (H) 1.0 - 1.3 MMOL/L PARATHYROID HORMONE Collection Time: 09/11/17 3:50 AM Result Value Ref Range PTH Hormone 190.3 (H) 10 - 65 PG/ML 25-OH VITAMIN D (D2 + D3) Collection Time: 09/11/17 10:00 AM Result Value Ref Range Vitamin D(25-OH)Total 34.0 30 - 80 NG/ML TACROLIMUS LEVEL(FK506) Collection Time: 09/11/17 10:00 AM Result Value Ref Range Tacrolimus 1.7 (L) 2 - 15 NG/ML EVEROLIMUS BLOOD Collection Time: 09/11/17 10:00 AM Result Value Ref Range Everolimus 3.6 3 - 10 ng/mL Point of Care Testing (Last 24 hours) Glucose: 95 (09/11/17 0350) Radiology and other Diagnostics Review: Pertinent radiology reviewed. Faith Jordan DO PGY-1 Pager [phone] Associated attestation - Monalisa Bruce MD - 09/11/2017 10:13 PM CDT Formatting of this note may be different from the original. ATTESTATION I personally performed the yeh portions of the E/M visit, discussed case with resident and concur with resident documentation of history, physical exam, assessment, and treatment plan unless otherwise noted. Monitoring off abx after completion of course of Zosyn. ID following. No growth on BAL specimen thus far. JERED susceptibilities pending ( outside lab). Trying back on CPAP with pulse ox tonight Plan DC back to SNF with outpt Oncology follow up as scheduled Oncology had already reviewed PET findings with pt and his family prior to my visit today. We went back over results with them . They did not have any additional questions. Family tearful. Offered support Total time of visit was 40 minutes, with 30 minutes spent in review of test results, POC and family support coordinator name: Monalisa Bruce MD Date: 09/11/2017 * Francia Bonds, OT - 09/11/2017 11:15 AM CDT Formatting of this note may be different from the original. OCCUPATIONAL THERAPY PROGRESS NOTE Patient Name: Liz Zamora [facility] Room/Bed: [place] [address] Admitting Diagnosis: Lung Cancer vs TB Acid-fast bacteria present Past Medical History: Diagnosis Date Arthritis Ascites Basal cell carcinoma CKD (chronic kidney disease) 06/06/2012 COPD (chronic obstructive pulmonary disease) (HCC) Dialysis patient (HCC) M-W-F Edema End-stage liver disease (HCC) Gastrointestinal disorder GERD (gastroesophageal reflux disease) Hepatic encephalopathy (HCC) 07/25/2012 History of alcohol abuse 08/02/2012 History of esophageal varices 08/02/2012 Hypertension 08/02/2012 Murmur Pancreatitis 2014 Personal history of ascites 06/06/2012 Squamous cell carcinoma Transplant Liver Type II diabetes mellitus (HCC) 08/02/2012 Mobility Progressive Mobility Level: Walk in room Distance Walked (feet): 20 ft Level of Assistance: Assist X1 Assistive Device: Walker Time Tolerated: 11-30 minutes Activity Limited By: Fatigue Subjective Pertinent Dx per Physician: malewith a past medical history most pertinent for 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 Precautions: O2 Requirement;Falls (5L) Pain / Complaints: Patient has no c/o pain Objective Psychosocial Status: Willing and Cooperative to Participate Persons Present: Sister;Spouse Home Living Type of Home: House Home Layout: One Level Bathroom Shower / Tub: Tub/Shower Unit Bathroom Toilet: Standard Prior Function Level Of Gary: Independent with ADLs and functional transfers; Independent with homemaking w/ ambulation Lives With: Spouse Receives Help From: None Needed Vision Current Vision: Wears Glasses Only for Reading Ocular Range Of Motion: Within Normal Limits Current Vision: Wears Glasses Only for Reading Ocular Range Of Motion: Within Normal Limits ADL's Where Assessed: In Bathroom;Standing at Sink Grooming Assist: Minimal Assist Grooming Deficits: Steadying;Teeth Care;Wash/Dry Face Toileting Assist: Total Assist Toileting Deficits: Perineal Hygiene Functional Transfer Assist: Minimal Assist Functional Transfer Deficits: Commode Transfer Activity Tolerance Endurance: 3/5 Tolerates 25-30 Minutes Exercise w/Multiple Rests Sitting Balance: 4/5 Moves/Returns Trunkal Midpoint 1-2 Inches in Multiple Planes Cognition Overall Cognitive Status: WFL to Adequately Complete Self Care Tasks Safely Edema RUE Edema: No Significant Edema LUE Edema: No Significant Edema Sensory Overall Sensory: Bilateral Intact UE Strength / Tone Overall Strength / Tone: WFL Able to Perform ADL Tasks AM-PAC 6 Clicks Daily Activity Inpatient Putting on and taking off regular lower body clothes?: Total Bathing (Including washing, rinsing, drying): A Lot Toileting, which includes using toilet, bedpan, or urinal: Total Putting on and taking off regular upper body clothing: A Little Taking care of personal grooming such as brushing teeth: A Little Eating meals?: None Daily Activity Raw Score: 14 Standardized (t-scale) score: 33.39 CMS 0-100% Score: 59.67 CMS G Code Modifier: CK AM-PAC Daily Activity Functional Stage: -2.73-40 No Independent Tasks Plan Treatment Interventions: ADL Retraining;Functional Transfer Training;Endurance Training;Compensatory Technique Education OT Frequency: 5x/week Plan for next session: Grooming and sink and LE dressing Functional Transfer Goals Pt Will Transfer To Bedside Commode: w/ Minimum Assist, w/ Assistive Device OT Discharge Recommendations OT Discharge Recommendations: Inpatient Setting Equipment Recommendations: Too early to be determined Therapist: Francia Bonds OT/Ovi #[id number] Date: 09/11/2017 * Irasema Acuna APRN-NP - 09/11/2017 10:44 AM CDT Formatting of this note may be different from the original. Pulmonary Progress Note Name: Liz Hendricks Today's Date: 09/11/2017 Admission Date: 08/31/2017 LOS: 11 days Impression: Mr. 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 Acute hypoxic respiratory failure ? Max requirement of 11L ---> down to 4L this AM ? Bilateral lower lobe consolidations on CTA (09/04/17) ? spiked a temp to 101 on 09/03. Patient reports was vomiting episode prior to O2 needs starting- ?aspiration. ? small acute segmental PE in the lingula. Normally it is unlikely that this small PE could cause this degree of hypoxemia, however this is in one of the few areas of normal lung for him so this may account for the degree of hypoxemia we see 2. Adenocarcinoma of the lung- biopsy consistent with adenocarcinoma with lepidic pattern of growth ? onc has requested further testing on biopsy samples including PDL1, ALK, ROS1 , EGFR ? onc recommending PET CT for staging 3. Mycobacterium Avium Intracellularae ? AFB sputum here negative x 3 ? bronchoscopy with BAL and TBB (09/07/17) - hyperdynamic airways with slight erythema noted BAL: RBC 800; WBC 440; cells too degenerated for differentiations; atypical cells present Gram stain and bacterial cultures negative 4. Pulmonary infiltrate ? Bibasilar consolidation concerning for superimposed pneumonia ? Reported episode of vomiting prior to becoming febrile 09/03 - ? Aspiration pneumonia ? Zosyn day 4 of 10 per ID recs ? Sputum AFB neg x 3 ? PET/CT with hypermetabolic RUL consolidation with hypermetabolic paratracheal LN, and hypermetabolic pleural-based medial right hemithorax suggestive of pleural metastasis 5. OLT (2012) ? Tacrolimus and everolimus daily ? Follows with Dr. Brock 6. ESRD s/t immunosuppression ? T/TR/Sat dialysis 7. PE ? CTA Chest (09/04/17) w/ small acute segmental pulmonary embolus within the lingula ? Continue Apixaban 8. MARGARET PSG approximately 10 [facility] ago at [facility] Auto-titrating CPAP (max IPAP 11) DME: [employer] Transitioned to BiPAP 14/09 d/t increased O2 requirements 09/06 during decompensation event Recommendations: TBB pathology without evidence of lesional tissue BAL cytology pending; will continue to follow results AFB stains negative, await final AFB culture (can take up to 6 weeks) PET/CT today with hypermetabolic RUL consolidation, paratracheal LN, and pleural-based lesion concerning for local metastasis Unclear if the LN activity could be reactive given superimposed pneumonia; EBUS may help differentiate between alessio mets vs reactive LN Given his complex history likely a poor surgical candidate Small bilateral pleural effusion with right effusion SUV of 2.28; too small to tap for diagnostic evaluation but given increased activity malignant effusion is certainly possible Trial back on home CPAP setting with baseline O2, check SpO2 Q4 hours; if he tolerates ok to d/c on home CPAP as the BiPAP was only indicated due to increased O2 requirement which was likely related to aspiration pneumonia We will continue to follow. Above plan discussed with attending physician, Dr. Cha. Irasema Acuna APRN-STAIN SPRAYER Pager [phone] Subjective Sitting up in chair eating breakfast. Went for PET/CT this AM without issue. Is not using his IS or flutter valve consistently. Continues to have productive cough with difficulty clearing mucus. Review of Systems Constitutional: Negative for chills, diaphoresis and fever. Respiratory: Positive for cough and sputum production. Negative for shortness of breath and wheezing. Cardiovascular: Negative for leg swelling. Gastrointestinal: Negative for diarrhea, nausea and vomiting. All other systems reviewed and are negative. Objective Vital Signs: Last Filed Vital Signs: 24 Hour Range BP: 142/73 (09/12 911) Temp: 36.7 C (98.1 F) (09/12 911) Pulse: 73 (09/12 911) Respirations: 19 PER MINUTE (09/12 911) SpO2: 97 % (09/12 911) O2 Delivery: Nasal Cannula (09/12 911) SpO2 Pulse: 70 (09/10 1400) Height: 188 cm (74") (09/11 0725) BP: (111-150)/(49-73) Temp: [36.6 C (97.9 F)-36.9 C (98.5 F)] Pulse: [67-78] Respirations: [18 PER MINUTE-23 PER MINUTE] SpO2: [92 %-97 %] O2 Delivery: Nasal Cannula Intake/Output Summary: (Last 24 hours) Intake/Output Summary (Last 24 hours) at 09/11/17 1044 Last data filed at 09/10/17 2330 Gross per 24 hour Intake 240 ml Output 2300 ml Net -2060 ml General: Awake, in no acute distress. HEENT: NC/AT, sclera non-icteric, moist mucus membranes. CV: regular rhythm, normal rate, no murmurs. Lungs: rhonchi bilateral lower lobes Abdomen: soft, non-tender, non-distended, normo-active bowel sounds Extremities: no edema, pedal pulses 2 (+) bilaterally Neuro: no focal deficits Skin: no rashes Lab Review Recent CBC Recent Labs 09/09/17 0301 09/10/17 0420 09/11/17 0350 WBC 4.3* 4.4* 4.8 HGB 7.1* 7.1* 7.2* HCT 20.8* 21.0* 21.3* PLTCT 264 233 258 MCV 76.4* 77.0* 77.8* INR 1.3* 1.5* 1.8* Recent CMP Recent Labs 09/09/17 0301 09/10/17 0420 09/11/17 0350 NA 135* 135* 137 K 3.5 3.6 3.6 CL 98 98 100 CO2 27 25 26 GAP 10 12 11 BUN 23 33* 18 CR 6.12* 8.63* 5.67* GFR 9* 6* 10* GLU 93 86 95 CA 10.2 10.3 10.2 ALBUMIN 2.8* 2.8* 2.9* ALKPHOS 55 54 57 AST 7 8 13 ALT 6* 5* 9 TOTBILI 0.3 0.3 0.3 Other labs PATHOLOGY REPORT Date Value Ref Range Status 09/06/2017 Final [facility] [email or web address] Department of Pathology and Laboratory Medicine [address] [place] [address] Surgical Pathology Office: [phone] SURGICAL PATHOLOGY REPORT NAME: LIZ HENDRICKS SURG PATH #: [id number] MR #: [id number] SPECIMEN CLASS: SR BILLING #: [id number] ALT ID #: LOCATION: DATE OF PROCEDURE: 09/06/2017 AGE: 76 SEX: M DATE RECEIVED: 09/07/2017 : 1940 TIME RECEIVED: 07:29 PHYSICIAN: ANANTH CALVIN MD DATE OF REPORT: 09/10/2017 COPY TO: EBENEZER SAMAYOA DATE OF PRINTIN09/10/2017 ######################################################################## Final Diagnosis: A. Lung tissue, "right lower lobe transbronchial biopsy", biopsy: No lesional tissue identified. Attestation: By this signature, I attest that I have personally formulated the final interpretation expressed in this report and that the above diagnosis is based upon my examination of the slides and/or other material indicated in this report. +++ +++ Laura Navarrete/09/07/2017 ######################################################################## Material Received: A: right lower lobe transbronchial [...] entirely submitted in cassette A1. (tn) mtz/09/07/2017 ] Point of Care Testing (Last 24 hours) Glucose: 95 (09/11/17 0350) Radiology and other Diagnostics Review: NM PET SCAN TORSO (09/11/17) IMPRESSION 1. Redemonstration of hypermetabolic consolidation within the right upper lobe compatible with combination of biopsy-proven adenocarcinoma with superimposed pneumonia. 2. Hypermetabolic paratracheal lymph node concerning for regional lymph node metastasis. 3. Pleural-based medial right hemithorax FDG avid lesion concerning for pleural-based metastasis. Medications Scheduled IV PRN apixaban (ELIQUIS) tablet 5 mg 5 mg Oral BID aspirin chewable tablet 81 mg 81 mg Oral QDAY atorvastatin (LIPITOR) tablet 10 mg 10 mg Oral QDAY doxazosin (CARDURA) tablet 2 mg 2 mg Oral QDAY escitalopram oxalate (LEXAPRO) tablet 10 mg 10 mg Oral QDAY everolimus (immunosuppressive) (ZORTRESS) tablet 1 mg 1 mg Oral BID oxybutynin XL (DITROPAN XL) tablet 10 mg 10 mg Oral QHS pantoprazole (PROTONIX) tablet 40 mg 40 mg Oral QDAY(21) sevelamer carbonate (RENVELA) tablet 800 mg 800 mg Oral TID w/ meals tacrolimus (PROGRAF) capsule 0.5 mg 0.5 mg Oral BID acetaminophen Q4H PRN, albuterol 0.5% Q4H PRN, ipratropium bromide Q4H PRN, ondansetron Q6H PRN, sodium chloride 0.9% (NS) IP Dialysis PRN, sodium chloride 0.9% (NS) IP Dialysis PRN, sodium chloride 0.9% (NS) IP Dialysis PRN * Clinton Rosales MD - 09/11/2017 10:41 AM CDT Formatting of this note may be different from the original. Infectious Diseases Progress Note Today's Date: 09/11/2017 Admission Date: 08/31/2017 Reason for this consultation: Positive AFB from mass biopsy at OSH. History of OLT in 2012 Consult Type: Co-Management w/Signed Orders Assessment: Lung mass with JERED growth on biopsy culture July 2017 Adenocarcinoma of the lung - 2 months ago the patient was hospitalized at an outside facility for pneumonia. During that hospitalization he underwent bronchoscopy and biopsies were taken of the mass (08/13). This mass showed adenocarcinoma. -08/13 mass bx also had AFB culture sent. + on 08/30. ID was contacted on 08/31 for advice and reportedly recommended admission. -On admission he felt generally unchanged, he did have significant weakness and lost 30 pounds over the prior 10 weeks. He did have a dry cough without any hemoptysis. He had not been incarcerated or had significant travel (only intl was decades ago to [place]) or TB exposure. -3 AFB sputum cultures were ordered, is placed on airborne precautions, no antibiotics were started and ID was consulted. -No leukocytosis, afebrile. -Regarding the culture that was positive from the mass this was + on 08/30 and sent for ID to the state lab. 09/04 confirmed JERED, requested susceptibilities be sent, discussed with lab employee Monalisa Mccrary, sent to [facility] - Repeat AFB sputums x 3 smear neg, cultures pending Possible secondary bacterial pneumonia Aspiration? -Decompensated overnight 09/03-, possible aspiration broad abx with Vanc and Pip /tazo -09/06 BAL with hyperdynamic airways with slight erythema noted; WBC 440, gm stain nos, light growth of C.albicans on cx, no sig tian, and AFB so far negative as of 09/11. 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 ID requested susceptibilities on 03/14, sent to [facility] for susceptibilities -Unclear need for treatment vs monitoring. Dr Lynn will follow as outpatient and discuss potential treatment options. JERED not the cause of current symptoms. -09/06 BAL AFB smear neg, culture pending -Completed empiric pip/tazo 7 day course on 09/10/17 for possible aspiration pneumonia -Monitor off of systemic antimicrobials for now -Will follow bacterial and AFB cultures from BAL 09/06 -Watch for antimicrobial toxicities -Will follow Patient seen and discussed with Dr. Rosales. Faith Redd MD Infectious Disease Fellow Pager: [phone] ATTESTATION I personally performed the yeh portions of the E/M visit, discussed case with Dr Redd and concur with her documentation of history, physical exam, assessment , and treatment plan (unless modified by me). Where appropriate, addendums were made to the above. Clinton Rosales Date: 09/11/2017 History of Present Illness This is a 76-year-old man with a history of liver transplant in 2012 with disease (Suarez plus alcoholic cirrhosis) on everolimus plus tacrolimus for immunosuppression. He also has a history of end-stage renal disease on hemodialysis and diabetes mellitus.Recent dx of lung adenocarcinoma. The lung mass bx subsequently is growing an AFB, ID and S pattern pending. 3 negative AFB smears, cx pending. S/p bronch with BAL on 09/06, WBC 440, cell too degenerated to perform diff, gm stain no organisms, cultures in process, Biopsies also obtained for path/ cytology - no lesional tissue identified Afebrile. Oxygen requirement 5-6L still Dsypnea with activity, up to chair with OT this AM. Still has intermittent cough, unable to fully cough up secretions. No f/c/diaphoresis, no rash, no abd pain, no MCKENZIE. In better mood today. Antimicrobial Start date End date Pip/tazo 09/04/17 09/10/17 Vancomycin 09/04/17 09/07/17 Estimated Creatinine Clearance: 15.3 mL/min (A) (based on SCr of 5.67 mg/dL (H)) . Medications Scheduled Meds: apixaban (ELIQUIS) tablet 5 mg 5 mg Oral BID aspirin chewable tablet 81 mg 81 mg Oral QDAY atorvastatin (LIPITOR) tablet 10 mg 10 mg Oral QDAY doxazosin (CARDURA) tablet 2 mg 2 mg Oral QDAY escitalopram oxalate (LEXAPRO) tablet 10 mg 10 mg Oral QDAY everolimus (immunosuppressive) (ZORTRESS) tablet 1 mg 1 mg Oral BID oxybutynin XL (DITROPAN XL) tablet 10 mg 10 [address] pantoprazole DR (PROTONIX) tablet 40 mg 40 mg Oral QDAY(21) sevelamer carbonate (RENVELA) tablet 800 mg 800 mg Oral TID w/ meals tacrolimus (PROGRAF) capsule 0.5 mg 0.5 mg Oral BID Continuous Infusions: PRN and Respiratory Meds:acetaminophen Q4H PRN, albuterol 0.5% Q4H PRN, ipratropium bromide Q4H PRN, ondansetron Q6H PRN, sodium chloride 0.9% (NS) IP Dialysis PRN, sodium chloride 0.9% (NS) IP Dialysis PRN, sodium chloride 0.9% ( NS) IP Dialysis PRN Allergies Allergies Allergen Reactions Adhesive BLISTERS Skin tears Physical Examination Vital Signs: Last Vital Signs: 24 Hour Range BP: 142/73 (09/12 911) Temp: 36.7 C (98.1 F) (09/12 911) Pulse: 73 (09/12 911) Respirations: 19 PER MINUTE (09/12 911) SpO2: 97 % (09/12 911) O2 Delivery: Nasal Cannula (09/12 911) SpO2 Pulse: 70 (09/10 1400) Height: 188 cm (74") (09/11 724) BP: (111-150)/(49-73) Temp: [36.6 C (97.9 F)-36.9 C (98.5 F)] Pulse: [67-78] Respirations: [18 PER MINUTE-23 PER MINUTE] SpO2: [92 %-97 %] O2 Delivery: Nasal Cannula General: alert, oriented x 3, in NAD HENT: normocephalic, atraumatic, oropharynx clear Neck: supple, no lymphadenopathy Lungs: CTAB, no wheezing, rhonchi, rales appreciated Heart: regular rhythm, reg rate, no murmur Abdomen: soft, non-tender, non-distended, normoactive bowel sounds Ext: no edema but some mild tenderness with squeezing of his calves Skin: no rashes Lines: PIV, RUE AV fistula 09/04 tunneled non cuffed RIJ 2L CVC Lab Review Hematology Recent Labs 09/09/17 0301 09/10/17 0420 09/11/17 0350 WBC 4.3* 4.4* 4.8 HGB 7.1* 7.1* 7.2* HCT 20.8* 21.0* 21.3* PLTCT 264 233 258 INR 1.3* 1.5* 1.8* Chemistry Recent Labs 09/09/17 0301 09/10/17 0420 09/11/17 0350 NA 135* 135* 137 K 3.5 3.6 3.6 CL 98 98 100 CO2 27 25 26 BUN 23 33* 18 CR 6.12* 8.63* 5.67* GFR 9* 6* 10* GLU 93 86 95 CA 10.2 10.3 10.2 ALBUMIN 2.8* 2.8* 2.9* ALKPHOS 55 54 57 AST 7 8 13 ALT 6* 5* 9 TOTBILI 0.3 0.3 0.3 Microbiology, Radiology and other Diagnostics Review Microbiology data reviewed. 08/31/17: BC x2 NGTD Pertinent radiology images viewed. * Uziel Lincoln - 09/11/2017 10:00 AM CDT PHYSICAL THERAPY PROGRESS NOTE MOBILITY: Mobility Progressive Mobility Level: Active transfer to chair Distance Walked (feet): 5 ft Level of Assistance: Assist X2 Assistive Device: Walker Time Tolerated: 0-10 minutes Activity Limited By: Fatigue;Weakness;Shortness of air SUBJECTIVE: Subjective Significant hospital events: recently diagnosed adenocarcinoma of the lung. Planned to establish with Dr. Ventura on 09/03/17 but is now hospitalized for tuberculosis rule-out Mental / Cognitive Status: Alert;Oriented;Cooperative Persons Present: Spouse;Friend;Nursing Staff (nurse present at beginning and family/friend at end) Pain: Patient has no complaint of pain Pain Interventions: Patient agrees to participate in therapy Comments: Pt in bed upon arrival on 5 L O2 via NC. SpO2 mid 90s at rest. Comments: Pt on 5 L O2 via NC Ambulation Assist: Independent Mobility in Community with Endurance Limitations; Independent Mobility in Community with Device Patient Owned Equipment: Single Point Cane;Roller Walker Home Situation: Lives with Family Type of Home: House Entry Stairs: 1-2 Stairs In-Home Stairs: Able to Live on One Level Comments: Pt reports he was assisting with meals prior to recent decline in function. Pt stated recently he was using SPC. BED MOBILITY/TRANSFERS: Bed Mobility/Transfers Bed Mobility: Supine to Sit: Minimal Assist;Head of Bed Elevated;Use of Rail ( guidance of trunk) Transfer Type: Sit to Stand Transfer: Assistance Level: From;Bed;Moderate Assist;To;Bed Side Chair;Minimal Assist (2nd person was stand by assist to contact assist) Transfer: Assistive Device: Roller Walker Transfers: Type Of Assistance: Elevated Bed;For Strength Deficit;For Safety Considerations;Requires Extra Time End Of Activity Status: Up in Chair;Instructed Patient to Request Assist with Mobility;Instructed Patient to Use Call Light (fmaily present) Comments: Pt needed verbal cues to push up from bed and to reach back for chair. Pt became slightly dizzy during transfer SpO2 dropping to 89 just before sitting. Pt instructed on breathing technique and able to recovery to mid 90s for SpO2. EDUCATION: Education Persons Educated: Patient Patient Barriers To Learning: None Noted Interventions: Repetition of Instructions;Louder Voice Required Teaching Methods: Verbal Instruction Patient Response: Verbalized Understanding;Return Demonstration;More Instruction Required Topics: Use of Assistive Device/Orthosis;Safety Awareness;Up with Assist Only Comments: Pt needed repeated cuing for breathing technique to keep oyxgen from de-satting. ASSESSMENT/PROGRESS: Assessment/Progress Impaired Mobility Due To: Decreased Strength;Decreased Activity Tolerance; Medical Status Limitation Impaired Strength Due To: Decreased Activity Tolerance;Medical Status Limitation Assessment/Progress: Expect Slow Progress AM-PAC 6 Clicks Basic Mobility Inpatient Turning from your back to your side while in a flat bed without using bed rails : A Little Moving from lying on your back to sitting on the side of a flatbed without using bedrails : A Little Moving to and from a bed to a chair (including a wheelchair): A Lot Standing up from a chair using your arms (e.g. wheelchair, or bedside chair): A Lot To walk in hospital room: A Lot Climbing 3-5 steps with a railing: A Lot Raw Score: 14 Standardized (T-scale) Score: 35.55 Basic Mobility CMS 0-100%: 53.86 CMS G Code Modifier for Basic Mobility: CK GOALS: Goals Goal Formulation: With Patient/Family Time For Goal Achievement: 7 days Pt Will Go Supine To/From Sit: Independently Pt Will Transfer Bed/Chair: w/ Stand By Assist Pt Will Ambulate: 51-100 Feet, w/ Walker, w/ Stand By Assist Pt Will Go Up / Down Stairs: 1-2 Stairs, w/ Stand By Assist PLAN: Plan Treatment Interventions: Mobility Training;Balance Activities;Endurance Training ;Strengthening Plan Frequency: 5 Days per Week Comments: *ambulate in room RECOMMENDATIONS: PT Discharge Recommendations PT Discharge Recommendations: Inpatient Setting Equipment Recommendations: Roller Walker Therapist: Uziel Lincoln, student Physical therapist research assistant professor Date: 09/11/2017 Associated attestation - Jenni Anaya PTA - 09/11/2017 10:46 AM CDT Patient requires the use of a walker with wheels to complete ADL's in the home. Patient is safe ambulating at a walker level. Patient is unable to complete ADL's with a cane or crutch. I was present and involved in directing the care of the patient throughout the physical therapy session. * Cinda Merchant RN - 09/11/2017 9:10 AM CDT Pt arrived back on unit. Pt stable. * Victor Manuel Vargas, RT - 09/11/2017 8:52 AM CDT Formatting of this note may be different from the original. RESPIRATORY THERAPY ADULT PROTOCOL EVALUATION RESPIRATORY PROTOCOL PLAN Medications Albuterol/Ipratropium: Neb PRN Note: If indicated by protocol, medication orders will be placed by therapist. Procedures PAP: Place a nursing order for "IS Q1h While Awake" for any of Lung Expansion indicators Oxygen/Humidity: O2 to keep SpO2 > 92% Monitoring: Pulse oximetry BID & PRN PATIENT EVALUATION RESULTS Chart Review * Pulmonary Hx: Hx pulmonary disease, hx reactive or obstructive airway disease (PEFR & AM) OR regular home use of bronchodilators (AM) OR inhaled or systemic steroid use for lungs < or equal to 4 times/yr (AM) * Surgical Hx: No surgery OR last surgery > 6 weeks ago OR trach/stoma (BA) * Chest X-Ray: Clear OR not available * PFT/Oxygenation: FEV1, PEFR > 80% predicted OR physically unable to perform OR Pa02 >80 RA OR Sp02 >95% RA Patient Assessment * Respiratory Pattern: Regular pattern and rate OR good chest excursion with deep breathing * Breath Sounds: Clear and able to auscultate bases posteriorly * Cough / Sputum: Strong, effective cough OR nonproductive * Mental Status: Alert, oriented, cooperative * Activity Level: Ambulatory with assistance Priority Index Total Points: 4 Points * Priority Index: 1+ PRIORITY INDEX GUIDELINES* Priority Points 1 0-9 points 2 9-18 points 3 > 18 points + Pulm Dx or Home Rx *Higher points indicate higher acuity. Therapist: VICTOR MANUEL VARGAS, RT Date: 09/11/2017 Yeh AC=Airway clearance AM=Aerosolized medication BA=[place] aerosol DB&C=Deep breathe & cough FEV1=Forced expiratory volume in first second) IC=Inspiratory capacity LE=Lung expansion MDI=Metered dose inhaler Neb=Nebulizer O2=Oxygen Oxim=Oximetry PEFR=Peak expiratory flow rate [employer] ASSEMBLER=Rapid Response Team * Samantha Juarez APRN - 09/11/2017 8:51 AM CDT Formatting of this note may be different from the original. Oncology Consult Progress Note Name: Liz Hendricks Today's Date: 09/11/2017 Admission Date: 08/31/2017 LOS: 11 days Assessment/Plan: Active Problems: Liver transplanted (HCC) Immunosuppression (HCC) Acid-fast bacteria present Primary lung adenocarcinoma (HCC) ESRD (end stage renal disease) on dialysis (HCC) GERD (gastroesophageal reflux disease) Severe malnutrition (HCC) Mycobacterial infection Primary adenocarcinoma of lung (HCC) Lung Adenocarcinoma - 07/18/17: CT chest, RUL pneumonia - 07/24/17-07/31/17 patient admitted to [facility] for persistent pneumonia. - 08/10/17-08/20/17 admitted at [facility] for increasing weakness and fatigue. - 08/11/17 CT chest, significant right lung airspace disease, persistent effusions. - 08/13/17 bronchoscopy with RUL biopsy and brushing. Biopsy showed focally invasive well-differentiate adenocarcinoma, predominant lepidic pattern. No other studies currently pending. - 08/14/17 MRI brain, negative - 09/02/17: CT chest- Re demonstration of consolidative right upper lobe opacities with associated cystic changes and air bronchograms. Findings likely represent reported biopsy-proven adenocarcinoma with underlying mycobacterial Infection. Progression in bibasilar ground glass and consolidative opacities, consistent with increasing pneumonia. - 09/12/17: PET- Redemonstration of hypermetabolic consolidation within the right upper lobe compatible with combination of biopsy-proven adenocarcinoma with superimposed pneumonia. Hypermetabolic paratracheal lymph node concerning for regional lymph node metastasis. Pleural-based medial right hemithorax FDG avid lesion concerning for pleural-based metastasis - [facility] molecular testing results on 08/13/17 biopsy: PDL1 negative, ALK, ROS1 negative, KRAS detected Mycobacterium Avium Intracellularae - AFB sputum here negative x 3 - bronchoscopy with BAL and TBB (09/07/17) - hyperdynamic airways with slight erythema noted - ID following ESRD on HD ESLD s/p OLT on everolimus and tacrolimus Plan - Gen path, onckosight sequencing testing received from [facility] - PET scan results reviewed with patient and family - Follow up with Dr. Ventura scheduled on 09/18/17 at 10:20 am at [facility] for formulation of treatment plan Patient seen and discussed with Dr. Garza. Subjective Liz Hendricks is a 76 y.o. male. No acute events overnight. Ongoing productive cough, dyspnea with exertion. No fever or chills. Multiple family members present at bedside. Medications Scheduled Meds: apixaban (ELIQUIS) tablet 5 mg 5 mg Oral BID aspirin chewable tablet 81 mg 81 mg Oral QDAY atorvastatin (LIPITOR) tablet 10 mg 10 mg Oral QDAY doxazosin (CARDURA) tablet 2 mg 2 mg Oral QDAY escitalopram oxalate (LEXAPRO) tablet 10 mg 10 mg Oral QDAY everolimus (immunosuppressive) (ZORTRESS) tablet 1 mg 1 mg Oral BID oxybutynin XL (DITROPAN XL) tablet 10 mg [address]ole [address] (PROTONIX) tablet 40 mg 40 mg Oral QDAY(21) sevelamer carbonate (RENVELA) tablet 800 mg 800 mg Oral TID w/ meals tacrolimus (PROGRAF) capsule 0.5 mg 0.5 mg Oral BID Continuous Infusions: PRN and Respiratory Meds:acetaminophen Q4H PRN, albuterol 0.5% Q4H PRN, ipratropium bromide Q4H PRN, ondansetron Q6H PRN, sodium chloride 0.9% (NS) IP Dialysis PRN, sodium chloride 0.9% (NS) IP Dialysis PRN, sodium chloride 0.9% ( NS) IP Dialysis PRN Objective Vital Signs: Last Filed Vital Signs: 24 Hour Range BP: 139/59 (09/11 2255) Temp: 36.9 C (98.5 F) (09/11 2255) Pulse: 76 (09/11 2255) Respirations: 20 PER MINUTE (09/11 2255) SpO2: 95 % (09/11 2255) O2 Delivery: High Flow Nasal Cannula (09/11 2255) SpO2 Pulse: 70 (09/10 1400) Height: 188 cm (74") (09/11 0725) BP: (111-150)/(49-65) Temp: [36.6 C (97.8 F)-36.9 C (98.5 F)] Pulse: [67-78] Respirations: [13 PER MINUTE-24 PER MINUTE] SpO2: [92 %-97 %] O2 Delivery: High Flow Nasal Cannula Vitals: 09/07/17 1809 09/10/17 0938 09/10/17 1400 Weight: 97 kg (213 lb 13.5 oz) 96.1 kg (211 lb 13.8 oz) 94.6 kg (208 lb 8.9 oz) Intake/Output Summary: (Last 24 hours) Intake/Output Summary (Last 24 hours) at 09/11/17 0851 Last data filed at 09/10/17 2330 Gross per 24 hour Intake 450 ml Output 2300 ml Net -1850 ml Stool Occurrence: 1 Review of Systems: A 14 point review of systems was negative except for: Constitutional: positive for fatigue Respiratory: positive for dyspnea on exertion Physical Exam General appearance: Alert, cooperative, no distress Head: Normocephalic, atraumatic Lungs: Non-labored Abdomen: soft, non-tender. Extremities: No edema Neurologic: No focal deficits Pulses:2+ and symmetric Skin: No rash Lab Review 24-hour labs: Results for orders placed or performed during the hospital encounter of (from the past 24 hour(s)) PROTIME INR (PT) Collection Time: 09/11/17 3:50 AM Result Value Ref Range INR 1.8 (H) 0.8 - 1.2 CBC Collection Time: 09/11/17 3:50 AM Result Value Ref Range White Blood Cells 4.8 4.5 - 11.0 K/UL RBC 2.73 (L) 4.4 - 5.5 M/UL Hemoglobin 7.2 (L) 13.5 - 16.5 GM/DL Hematocrit 21.3 (L) 40 - 50 % MCV 77.8 (L) 80 - 100 FL MCH 26.5 26 - 34 PG MCHC 34.0 32.0 - 36.0 G/DL RDW 19.4 (H) 11 - 15 % Platelet Count 258 150 - 400 K/UL MPV 6.2 (L) 7 - 11 FL COMPREHENSIVE METABOLIC PANEL Collection Time: 09/11/17 3:50 AM Result Value Ref Range Sodium 137 137 - [...] 12 eGFR Non 10 (L) >60 mL/min eGFR 12 (L) >60 mL/min IONIZED CALCIUM Collection Time: 09/11/17 3:50 AM Result Value Ref Range Ionized Calcium 1.33 (H) 1.0 - 1.3 MMOL/L PARATHYROID HORMONE Collection Time: 09/11/17 3:50 AM Result Value Ref Range PTH Hormone 190.3 (H) 10 - 65 PG/ML Point of Care Testing (Last 24 hours) Glucose: 95 (09/11/17 0350) Radiology and other Diagnostics Review: Pertinent radiology reviewed. Samantha Juarez, YARD RIGGER [phone] Associated attestation - Suresh Garza DO - 09/11/2017 5:34 PM CDT Patient seen and examined. Medical record, including radiographic and laboratory studies, has been reviewed. The documentation of history, physical findings and plan outlined by the STAIN SPRAYER represent my own medical decision making. Patient and family informed of PET findings, and all questions answered to their satisfaction. Appointment with Dr. Ventura next week to formalize treatment options. Suresh Garza DO [facility] [place] Medical Oncology Consult Service * Ilda Uribe - 09/11/2017 7:10 AM CDT Pt off unit via bed with transport * Clinton Rosales MD - 09/10/2017 6:09 PM CDT Formatting of this note may be different from the original. Infectious Diseases Progress Note Today's Date: 09/10/2017 Admission Date: 08/31/2017 Reason for this consultation: Positive AFB from mass biopsy at OSH. History of OLT in 2012 Consult Type: Co-Management w/Signed Orders Assessment: Lung mass with JERED growth on biopsy culture July 2017 Adenocarcinoma of the lung - 2 months ago the patient was hospitalized at an outside facility for pneumonia. During that hospitalization he underwent bronchoscopy and biopsies were taken of the mass (08/13). This mass showed adenocarcinoma. -08/13 mass bx also had AFB culture sent. + on 08/30. ID was contacted on 08/31 for advice and reportedly recommended admission. -On admission he felt generally unchanged, he did have significant weakness and lost 30 pounds over the prior 10 weeks. He did have a dry cough without any hemoptysis. He had not been incarcerated or had significant travel (only intl was [place] ago to [place]) or TB exposure. -3 AFB sputum cultures were ordered, is placed on airborne precautions, no antibiotics were started and ID was consulted. -No leukocytosis, afebrile. -Regarding the culture that was positive from the mass this was + on 08/30 and sent for ID to the state lab. 09/04 confirmed JERED, requested susceptibilities be sent, discussed with lab employee Monalisa Mccrary, sent to [facility] - Repeat AFB sputums x 3 smear neg, cultures pending Possible secondary bacterial pneumonia Aspiration? -Decompensated overnight 09/03-, possible aspiration broad abx with Vanc and Pip /tazo -09/06 BAL with hyperdynamic airways with slight erythema noted; WBC 440, gm stain nos, light growth of yeast on cx, no sig tian, and AFB so far negative as of 09/10. - lung biopsies sent for path - no lesional tissue identified COPD ESRD on HD ESLD s/p OLT in 2012 on everolimus and tacrolimus DM H/O Joint replacement Recommendations: -AFB smears negative x 3, cx's pending -Previous lung mass biopsy AFB cx grew JERED. ID requested susceptibilities be sent, discussed with lab employee Monalisa Mccrary on 09/04/17, sent to [facility] for susceptibilities -Unclear need for treatment vs monitoring. Will discuss potential treatment options as outpatient. JERED not the cause of current symptoms. -09/06 BAL AFB smear neg, culture pending -Continue empiric pip/tazo through 09/10/17 to complete 7 day course starting from 09/04/17 -Will follow bacterial and AFB cultures from BAL 09/06 -Watch for antimicrobial toxicities -Will follow Thank you for this consult. Patient discussed with Dr. Rosales. Faith Redd MD Infectious Disease Fellow Pager: [phone] ATTESTATION I personally performed the yeh portions of the E/M visit, discussed case with Dr Redd and concur with her documentation of history, physical exam, assessment , and treatment plan (unless modified by me). Where appropriate, addendums were made to the above. Clinton Rosales Date: 09/11/2017 History of Present Illness This is a 76-year-old man with a history of liver transplant in 2012 with disease (Suarez plus alcoholic cirrhosis) on everolimus plus tacrolimus for immunosuppression. He also has a history of end-stage renal disease on hemodialysis and diabetes mellitus.Recent dx of lung adenocarcinoma. The lung mass bx subsequently is growing an AFB, ID and S pattern pending. 3 negative AFB smears, cx pending. S/p bronch with BAL on 09/06, WBC 440, cell too degenerated to perform diff, gm stain no organisms, cultures in process, Biopsies also obtained for path/ cytology - no lesional tissue identified Afebrile. Had HD today. Feels tired. Oxygen requirement 5-6L Denies dyspnea, still has intermittent cough, unable to fully cough up secretions. No f/c/diaphoresis, no rash, no abd pain, no MCKENZIE. Antimicrobial Start date End date Pip/tazo 09/04/17 active Vancomycin 09/04/17 09/07/17 Estimated Creatinine Clearance: 10 mL/min (A) (based on SCr of 8.63 mg/dL (H)). Review of Systems Full 10 system ROS completed and negative unless otherwise noted above. Medications Scheduled Meds: apixaban (ELIQUIS) tablet 5 mg 5 mg Oral BID aspirin chewable tablet 81 mg 81 mg Oral QDAY atorvastatin (LIPITOR) tablet 10 mg 10 mg Oral QDAY doxazosin (CARDURA) tablet 2 mg 2 mg Oral QDAY escitalopram oxalate (LEXAPRO) tablet 10 mg 10 mg Oral QDAY everolimus (immunosuppressive) (ZORTRESS) tablet 1 mg 1 mg Oral BID oxybutynin XL (DITROPAN XL) tablet 10 mg 10 mg Oral QHS pantoprazole DR (PROTONIX) tablet 40 mg 40 mg Oral QDAY(21) sevelamer carbonate (RENVELA) tablet 800 mg 800 mg Oral TID w/ meals tacrolimus (PROGRAF) capsule 0.5 mg 0.5 mg Oral BID Continuous Infusions: PRN and Respiratory Meds:acetaminophen Q4H PRN, albuterol 0.5% Q4H PRN, ipratropium bromide Q4H PRN, ondansetron Q6H PRN, sodium chloride 0.9% (NS) IP Dialysis PRN, sodium chloride 0.9% (NS) IP Dialysis PRN, sodium chloride 0.9% ( NS) IP Dialysis PRN Allergies Allergies Allergen Reactions Adhesive BLISTERS Skin tears Physical Examination Vital Signs: Last Vital Signs: 24 Hour Range BP: 150/65 (09/10 153) Temp: 36.6 C (97.9 F) (09/10 153) Pulse: 75 (09/10 153) Respirations: 22 PER MINUTE (09/10 153) SpO2: 92 % (09/10 153) O2 Delivery: High Flow Nasal Cannula (09/10 1530) SpO2 Pulse: 70 (09/10 1400) BP: (111-150)/(49-65) Temp: [36.6 C (97.8 F)-37.2 C (99 F)] Pulse: [67-77] Respirations: [13 PER MINUTE-24 PER MINUTE] SpO2: [92 %-98 %] O2 Delivery: High Flow Nasal Cannula General: alert, oriented x 3, in NAD HENT: normocephalic, atraumatic, oropharynx clear Eyes: EOM grossly intact, Conj nl Neck: supple, no lymphadenopathy Lungs: CTAB, no wheezing, rhonchi, rales appreciated Heart: regular rhythm, reg rate, no murmur Abdomen: soft, non-tender, non-distended, normoactive bowel sounds Ext: no edema Skin: no rashes Lines: PIV, RUE AV fistula 09/04 tunneled non cuffed RIJ 2L CVC Lab Review Hematology Recent Labs 09/08/17 0320 09/09/17 0301 09/10/17 0420 WBC 3.3* 4.3* 4.4* HGB 6.4* 7.1* 7.1* HCT 18.9* 20.8* 21.0* PLTCT 249 264 233 INR 1.2 1.3* 1.5* Chemistry Recent Labs 09/08/17 0320 09/09/17 0301 09/10/17 0420 NA 137 135* 135* K 3.4* 3.5 3.6 CL 100 98 98 CO2 29 27 25 BUN 14 23 33* CR 4.31* 6.12* 8.63* GFR 14* 9* 6* GLU 93 93 86 CA 9.9 10.2 10.3 ALBUMIN 2.7* 2.8* 2.8* ALKPHOS 52 55 54 AST 7 7 8 ALT 6* 6* 5* TOTBILI 0.3 0.3 0.3 Microbiology, Radiology and other Diagnostics Review Microbiology data reviewed. 08/31/17: BC x2 NGTD Pertinent radiology images viewed. * Omer Alvarado MD - 09/10/2017 4:49 PM CDT I have seen and examined the patient on HD today. Pt reports no issues with dialysis at this time. On exam, pt alert and in NAD, lungs w/ bilat rhonchi, heart RR, trace edema, RUE AVF w/ good flows. BP and lytes stable. Plan on 2 liters of UF today as BP tolerates. * Faith Jordan DO - 09/10/2017 4:32 PM CDT Formatting of this note may be different from the original. General Progress Note Name: Liz Hendricks Today's Date: 09/10/2017 Admission Date: 08/31/2017 LOS: 10 days Assessment/Plan: Active Problems: Liver transplanted (HCC) Immunosuppression (HCC) Acid-fast bacteria present Primary lung adenocarcinoma (HCC) ESRD (end stage renal disease) on dialysis (HCC) GERD (gastroesophageal reflux disease) Severe malnutrition (HCC) Mycobacterial infection Primary adenocarcinoma of lung (HCC) Liz Hendricks is a 76 y.o. 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 Acute hypoxemic respiratory failure- improving -S/p rapid response this am -AB.51, pCO2 38, pO2 55 on 4 Lpm -spO2 at 81% and bumped to 11 LPM of O2 -Well's score of 8, D-dimer 1289 -Patient satting well on 3 LMP after this episode -CXR appears mildly improved from previous -CTA with small PE in lingula, consolidation present, possible pneumonia vs malignancy PLAN >Pulmonology following, appreciate recs >Incentive spirometer and acapella device >Empiric abx de-escalated to zosyn-->discontinue today after 7 days >TRAFFIC OPERATOR CPAP 11-->now on hospital machine BiPAP with IPAP of 20 and EPAP 4 with 4L o2 bleed in >Consider sleep medicine consult on Sunday for home BiPAP Positive acid-fast bacteria culture Assessment Unclear significance at this point, it is certainly possible that this is only a MAC infection. - The patient is quite immunocompromised secondary to his immunosuppression for orthotopic liver transplant. - He does not have any risk factors for tuberculosis. - Symptomatically, the patient is relatively unchanged over the past several months since he was hospitalized for the pneumonia. Nevertheless, will be important to rule out active tuberculosis and further workup this finding. Plan Acid-fast bacteria sputum 3 negative--will remove isolation precautions Infectious disease consulted, appreciate recs: Suspect NTM rather than TB. --Pulmonary consult for assistance with bronchoscopy History of orthotopic liver transplant Orthotopic liver transplant in 2012. --He has been immunosuppressed with tacrolimus and everolimus. This has been complicated by biliary stricture requiring stent. He follows with Dr. Regan Brock of our hepatology department here. Plan: Hepatology consulted, appreciate recs: Will adjust dosages of immunosuppressants based on levels. >tacrolimus (goal ~3) and everolimus (goal ~5) levels Adenocarcinoma - Bronchoscopy and biopsies were taken at OSH on 08/13; biopsies revealed adenocarcinoma - Patient has not initiated treatment - Patient planned to establish with [facility] this week but has been hospitalized Plan: - Consult medical oncology >Patient will get PET tomorrow - Consult pulmonology, as above >Repeat bronchoscopy studies with cytogenetics and path pending History of end-stage renal disease (secondary to immunosuppression) on Sunday, , Sunday dialysis Nephrology consulted, appreciate recs: Patient to continue his TTS dialysis schedule. Continue sevelamer 800 mg TID with meals for hyperphosphatemia. Check iron studies. Continue TRAFFIC OPERATOR phosphate binder Hypertension Continue TRAFFIC OPERATOR Cardura History of GERD Continue TRAFFIC OPERATOR pantoprazole FEN: Renal dialysis diet PPx: Heparin Code Status: DNAR-FI Disposition: Continue admission to inpatient internal medicine under care of the Med 2 team. Patient seen and discussed with Dr. Bruce. Subjective Liz Hendricks is a 76 y.o. male. Seen and examined this morning. He denies any new complaints. There are no events overnight. He reports getting up to the bedside commode this am. Otherwise, he has not done much walking. He denies chest pain, shortness of breath, nausea/vomiting, constipation/diarrhea, dysuria , and lower extremity pain/swelling. Medications Scheduled Meds: apixaban (ELIQUIS) tablet 5 mg 5 mg Oral BID aspirin chewable tablet 81 mg 81 mg Oral QDAY atorvastatin (LIPITOR) tablet 10 mg 10 mg Oral QDAY doxazosin (CARDURA) tablet 2 mg 2 mg Oral QDAY escitalopram oxalate (LEXAPRO) tablet 10 mg 10 mg Oral QDAY everolimus (immunosuppressive) (ZORTRESS) tablet 1 mg 1 mg Oral BID oxybutynin XL (DITROPAN XL) tablet 10 mg 10 [address]HS pantoprazole DR (PROTONIX) tablet 40 mg 40 mg Oral QDAY(21) piperacillin/tazobactam (ZOSYN) 2.25 g/50 mL iso-osmotic IVPB 2.25 g Intravenous Q8H* sevelamer carbonate (RENVELA) tablet 800 mg 800 mg Oral TID w/ meals tacrolimus (PROGRAF) capsule 0.5 mg 0.5 mg Oral BID Continuous Infusions: PRN and Respiratory Meds: Objective: Vital Signs: Last Filed Vital Signs: 24 Hour Range BP: 150/65 (09/10 1530) Temp: 36.6 C (97.9 F) (09/10 1530) Pulse: 75 (09/10 1530) Respirations: 22 PER MINUTE (09/10 1530) SpO2: 92 % (09/10 1530) O2 Delivery: High Flow Nasal Cannula (09/10 1530) SpO2 Pulse: 70 (09/10 1400) BP: (111-150)/(49-65) Temp: [36.6 C (97.8 F)-37.2 C (99 F)] Pulse: [67-77] Respirations: [13 PER MINUTE-24 PER MINUTE] SpO2: [92 %-98 %] O2 Delivery: High Flow Nasal Cannula Vitals: 09/07/17 1809 09/10/17 0938 09/10/17 1400 Weight: 97 kg (213 lb 13.5 oz) 96.1 kg (211 lb 13.8 oz) 94.6 kg (208 lb 8.9 oz) Intake/Output Summary: (Last 24 hours) Intake/Output Summary (Last 24 hours) at 09/10/17 1632 Last data filed at 09/10/17 1518 Gross per 24 hour Intake 620 ml Output 2300 ml Net -1680 ml Stool Occurrence: 1 Physical Exam General: Alert. No acute distress HEENT: NCAT. Moist mucous membranes. Lungs: Coarse rales bilateral lower lobes Cardiac: Regular rate and rhythm Abdomen: Soft. Non-tender, non-distended. Normoactive bowel sounds Extremities: Bilateral lower extremities without swelling/erythema Neuro: Cranial nerves grossly intact. Moves all extremities spontaneously Psych: Pleasant and cooperative Lab Review 24-hour labs: Results for orders placed or performed during the hospital encounter of (from the past 24 hour(s)) PROTIME INR (PT) Collection Time: 09/10/17 4:20 AM Result Value Ref Range INR 1.5 (H) 0.8 - 1.2 CBC Collection Time: 09/10/17 4:20 AM Result Value Ref Range White Blood Cells 4.4 (L) 4.5 - 11.0 K/UL RBC 2.72 (L) 4.4 - 5.5 M/UL Hemoglobin 7.1 (L) 13.5 - 16.5 GM/DL Hematocrit 21.0 (L) 40 - 50 % MCV 77.0 (L) 80 - 100 FL MCH 26.2 26 - 34 PG MCHC 34.0 32.0 - 36.0 G/DL RDW 19.6 (H) 11 - 15 % Platelet Count 233 150 - 400 K/UL MPV 6.6 (L) 7 - 11 FL COMPREHENSIVE METABOLIC PANEL Collection Time: 09/10/17 4:20 AM Result Value Ref Range Sodium 135 (L) 137 - 147 MMOL/L Potassium 3.6 3.5 - 5.1 MMOL/L Chloride 98 98 - 110 MMOL/L Glucose 86 70 - 100 MG/DL Blood Urea Nitrogen 33 (H) 7 - 25 MG/DL Creatinine 8.63 (H) 0.4 - 1.24 MG/DL Calcium 10.3 8.5 - 10.6 MG/DL Total Protein 5.6 (L) 6.0 - 8.0 G/DL Total Bilirubin 0.3 0.3 - 1.2 MG/DL Albumin 2.8 (L) 3.5 - 5.0 G/DL Alk Phosphatase 54 25 - 110 U/L AST (SGOT) 8 7 - 40 U/L CO2 25 21 - 30 MMOL/L ALT (SGPT) 5 (L) 7 - 56 U/L Anion Gap 12 3 - 12 eGFR Non 6 (L) >60 mL/min eGFR 7 (L) >60 mL/min Point of Care Testing (Last 24 hours) Glucose: 86 (09/10/17 0420) Radiology and other Diagnostics Review: Pertinent radiology reviewed. Associated attestation - Monalisa Bruce MD - 09/10/2017 10:09 PM CDT Formatting of this note may be different from the original. ATTESTATION I personally performed the yeh portions of the E/M visit, discussed case with resident and concur with resident documentation of history, physical exam, assessment, and treatment plan unless otherwise noted. JERED growing from lung mass biopsy--> susceptibilities pending. Unclear need to treat. ID following. Will call pathology to see if we have biopsy tissue at to run molecular studies PET/CT ordered. Resp status continues to slowly improve Staff name: Monalisa Bruce MD Date: 09/10/2017 * Blanka Uriarte - 09/10/2017 3:16 PM CDT Patient back to unit at this time. * Jenni Anaya PTA - 09/10/2017 1:30 PM CDT PHYSICAL THERAPY NOTE Patient was unavailable for physical therapy/off the unit to dialysis. Physical therapy will continue to follow and provide intervention as indicated. Therapist: Jenni Anaya, Physical therapist research assistant professor Date: 09/10/2017 * Jonathon Munguia MD - 09/10/2017 1:14 PM CDT Please continue current doses of tacrolimus 0.5 mg BID, and everolimus 1 mg BID Trough level goal for tacro is around 3 Trough level goal for everolimus is around 5. Please recheck trough levels tomorrow, then daily Rest of the plan per primary team. Plan was discussed with Dr. Li Munguia MD Gastroenterology and hepatology fellow Pager: [phone] * Francia Bonds, HARPREET - 09/10/2017 11:48 AM CDT OCCUPATIONAL THERAPY Patient unavailable due to being off the unit for dialysis. Francia Bonds, OT/L [id number] * Blanka Uriarte - 09/10/2017 9:27 AM CDT Patient off unit at this time for dialysis * Irasema Acuna APRN-NP - 09/10/2017 9:22 AM CDT Formatting of this note may be different from the original. Pulmonary Progress Note Name: Liz Hendricks Today's Date: 09/10/2017 Admission Date: 08/31/2017 LOS: 10 days Impression: Mr. 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 Acute hypoxic respiratory failure Max requirement of 11L ---> down to 4L this AM Bilateral lower lobe consolidations on CTA (09/04/17) spiked a temp to 101 on 09/03. Patient reports was vomiting episode prior to O2 needs starting- ?aspiration. small acute segmental PE in the lingula. Normally it is unlikely that this small PE could cause this degree of hypoxemia, however this is in one of the few areas of normal lung for him so this may account for the degree of hypoxemia we see 2. Adenocarcinoma of the lung- biopsy consistent with adenocarcinoma with lepidic pattern of growth onc has requested further testing on biopsy samples including PDL1, ALK, ROS1, EGFR onc recommending PET CT for staging 3. Mycobacterium Avium Intracellularae AFB sputum here negative x 3 bronchoscopy with BAL and TBB (09/07/17) - hyperdynamic airways with slight erythema noted BAL: RBC 800; WBC 440; cells too degenerated for differentiations; atypical cells present Gram stain and bacterial cultures negative 4. Pulmonary infiltrate Bibasilar consolidation concerning for superimposed pneumonia Reported episode of vomiting prior to becoming febrile 09/03 - ? Aspiration pneumonia Zosyn day per ID recs See AFB 5. OLT (2012) tacrolimus Follows with Dr. Brock 6. ESRD s/t immunosuppression T/TR/Sat dialysis 7. PE CTA Chest (09/04/17) w/ small acute segmental pulmonary embolus within the lingula Continue Apixaban Recommendations: Increase in cough over the weekend with difficulty clearing mucus Increase pulmonary hygiene with addition of IS and Flutter valve 4x daily to help with secretion clearance Out of bed to chair to help with mobilization of secretions Gram stain and bacterial cultures negative; AFB and fungal cultures pending Cytology and pathology pending - will continue to follow results Suspect his oxygen requirement should improve with continued airway clearance Continue to titrate O2 to keep SpO2 > 92% We will continue to follow. Above plan discussed with attending physician, Dr. Semaj Acuna, YARD R[employer]GER[employer]STAIN SPRAYER Pager [phone] Subjective No acute events overnight. Feels breathing is a little worse with increase in cough from yesterday. Is unable to clear the mucus completely, but has increase in mucus. Denies any fever, chills, sweats. Appetite is stable. Preparing to transport to dialysis. Requiring 4L Review of Systems Constitutional: Negative for chills, diaphoresis and fever. Respiratory: Positive for cough, sputum production and shortness of breath. Negative for wheezing. Gastrointestinal: Negative for diarrhea, nausea and vomiting. All other systems reviewed and are negative. Objective Vital Signs: Last Filed Vital Signs: 24 Hour Range BP: 136/57 (09/10 699) Temp: 36.9 C (98.4 F) (09/10 699) Pulse: 75 (09/10 699) Respirations: 16 PER MINUTE (09/10 699) SpO2: 98 % (09/10 699) O2 Delivery: CPAP/BiPAP (Pt Owned) (09/10 699) BP: (127-138)/(57-62) Temp: [36.8 C (98.3 F)-37.2 C (99 F)] Pulse: [67-77] Respirations: [16 PER MINUTE-18 PER MINUTE] SpO2: [93 %-98 %] O2 Delivery: CPAP/BiPAP (Pt Owned) Intake/Output Summary: (Last 24 hours) Intake/Output Summary (Last 24 hours) at 09/10/17921 Last data filed at 09/10/17419 Gross per 24 hour Intake 290 ml Output 0 ml Net 290 ml General: Awake, in no acute distress. HEENT: NC/AT, sclera non-icteric, moist mucus membranes. CV: regular rhythm, normal rate, no murmurs. Lungs: Rhonchi bilateral with slight expiratory wheeze. Abdomen: soft, non-tender, non-distended, normo-active bowel sounds Extremities: no edema, pedal pulses 2 (+) bilaterally Neuro: no focal deficits Skin: no rashes Lab Review Recent CBC Recent Labs 09/08/17 0320 09/09/17 0301 09/10/17 0420 WBC 3.3* 4.3* 4.4* HGB 6.4* 7.1* 7.1* HCT 18.9* 20.8* 21.0* PLTCT 249 264 233 MCV 76.5* 76.4* 77.0* INR 1.2 1.3* 1.5* Recent CMP Recent Labs 09/08/17 0320 09/09/17 0301 09/10/17 0420 NA 137 135* 135* K 3.4* 3.5 3.6 CL 100 98 98 CO2 29 27 25 GAP 8 10 12 BUN 14 23 33* CR 4.31* 6.12* 8.63* GFR 14* 9* 6* GLU 93 93 86 CA 9.9 10.2 10.3 ALBUMIN 2.7* 2.8* 2.8* ALKPHOS 52 55 54 AST 7 7 8 ALT 6* 6* 5* TOTBILI 0.3 0.3 0.3 Other labs Results for LIZ HENDRICKS ( ) as of 09/10/2017 09:24 Ref. Range 09/06/2017 14:30 Fluid Source Unknown BRONCHIAL ALVEOLA... Red Blood Cells,Fluid Latest Units: /UL 800 White Blood Cells,Fluid Latest Units: /UL 440 Segmented Neutrophils, Fluid Latest Units: % CELLS TO DEGENERA... Pathology Interpretation,Fluid Unknown ATYPICAL CELL YUAN... Pathologist Signature Unknown INTERPRETED BY JA... Cytology and Pathology pending Point of Care Testing (Last 24 hours) Glucose: 86 (09/10/17 0420) Radiology and other Diagnostics Review: CTA CHEST WO/W (09/04/17) IMPRESSION 1. Small acute segmental pulmonary embolus [...] enlarging thoracic lymphadenopathy. 7. Coronary artery disease. Medications Scheduled IV PRN apixaban (ELIQUIS) tablet 5 mg 5 mg Oral BID aspirin chewable tablet 81 mg 81 mg Oral QDAY atorvastatin (LIPITOR) tablet 10 mg 10 mg Oral QDAY doxazosin (CARDURA) tablet 2 mg 2 mg Oral QDAY escitalopram oxalate (LEXAPRO) tablet 10 mg 10 mg Oral QDAY everolimus (immunosuppressive) (ZORTRESS) tablet 1 mg 1 mg Oral BID oxybutynin XL (DITROPAN XL) tablet 10 mg [address] (PROTONIX) tablet 40 mg 40 mg Oral QDAY(21) piperacillin/tazobactam (ZOSYN) 2.25 g/50 mL iso-osmotic IVPB 2.25 g Intravenous Q8H* sevelamer carbonate (RENVELA) tablet 800 mg 800 mg Oral TID w/ meals tacrolimus (PROGRAF) capsule 0.5 mg 0.5 mg Oral BID acetaminophen Q4H PRN, albuterol 0.5% Q4H PRN, ipratropium bromide Q4H PRN, ondansetron Q6H PRN, sodium chloride 0.9% (NS) IP Dialysis PRN, sodium chloride 0.9% (NS) IP Dialysis PRN, sodium chloride 0.9% (NS) IP Dialysis PRN, sodium chloride 0.9% (NS) IP Dialysis PRN, sodium chloride 0.9% (NS) IP Dialysis PRN * Herve Chan MD - 09/09/2017 11:22 AM CDT Formatting of this note may be different from the original. General Progress Note Name: Liz Hendricks Today's Date: 09/09/2017 Admission Date: 08/31/2017 LOS: 9 days Assessment/Plan: Active Problems: Liver transplanted (HCC) Immunosuppression (HCC) Acid-fast bacteria present Primary lung adenocarcinoma (HCC) ESRD (end stage renal disease) on dialysis (HCC) GERD (gastroesophageal reflux disease) Severe malnutrition (HCC) Mycobacterial infection Primary adenocarcinoma of lung (HCC) Liz Hendricks is a 76 y.o. 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 Acute hypoxemic respiratory failure- improving -S/p rapid response this am -AB.51, pCO2 38, pO2 55 on 4 Lpm -spO2 at 81% and bumped to 11 LPM of O2 -Well's score of 8, D-dimer 1289 -Patient satting well on 3 LMP after this episode -CXR appears mildly improved from previous -CTA with small PE in lingula, consolidation present, possible pneumonia vs malignancy PLAN >Pulmonology following, appreciate recs >Plan for bronchoscopy today >Empiric abx de-escalated to zosyn >TRAFFIC OPERATOR CPAP 11-->now on hospital machine BiPAP with IPAP of 20 and EPAP 4 with 4L o2 bleed in >Consider sleep medicine consult on Sunday for home BiPAP Positive acid-fast bacteria culture Assessment Unclear significance at this point, it is certainly possible that this is only a MAC infection. - The patient is quite immunocompromised secondary to his immunosuppression for orthotopic liver transplant. - He does not have any risk factors for tuberculosis. - Symptomatically, the patient is relatively unchanged over the past several months since he was hospitalized for the pneumonia. Nevertheless, will be important to rule out active tuberculosis and further workup this finding. Plan Acid-fast bacteria sputum 3 negative--will remove isolation precautions Infectious disease consulted, appreciate recs: Suspect NTM rather than TB. --Pulmonary consult for assistance with bronchoscopy History of orthotopic liver transplant Orthotopic liver transplant in 2012. --He has been immunosuppressed with tacrolimus and everolimus. This has been complicated by biliary stricture requiring stent. He follows with Dr. Regan Brock of our hepatology department here. Plan: Hepatology consulted, appreciate recs: Will adjust dosages of immunosuppressants based on levels. . >tacrolimus (goal ~3) and everolimus (goal ~5) levels Adenocarcinoma - Bronchoscopy and biopsies were taken at OSH on 08/13; biopsies revealed adenocarcinoma - Patient has not initiated treatment - Patient planned to establish with [facility] this week but has been hospitalized Plan: - Consult medical oncology >Patient will need PET for staging - Consult pulmonology, as above >Repeat bronchoscopy results pending History of end-stage renal disease (secondary to immunosuppression) on Sunday, , Sunday dialysis Nephrology consulted, appreciate recs: Patient to continue his TTS dialysis schedule. Continue sevelamer 800 mg TID with meals for hyperphosphatemia. Check iron studies. Continue TRAFFIC OPERATOR phosphate binder Hypertension Continue TRAFFIC OPERATOR Cardura History of GERD Continue TRAFFIC OPERATOR pantoprazole FEN: Renal dialysis diet PPx: Heparin Code Status: DNAR-FI Disposition: Continue admission to inpatient internal medicine under care of the Med 2 team. Patient seen and discussed with Dr. Wilson. Subjective Liz Hendricks is a 76 y.o. male. Seen and examined this morning. He denies any new complaints. There are no events overnight. He denies chest pain, shortness of breath, nausea/vomiting, constipation/diarrhea, dysuria, and lower extremity pain/swelling. Medications Scheduled Meds: apixaban (ELIQUIS) tablet 5 mg 5 mg Oral BID aspirin chewable tablet 81 mg 81 mg Oral QDAY atorvastatin (LIPITOR) tablet 10 mg 10 mg Oral QDAY doxazosin (CARDURA) tablet 2 mg 2 mg Oral QDAY escitalopram oxalate (LEXAPRO) tablet 10 mg 10 mg Oral QDAY everolimus (immunosuppressive) (ZORTRESS) tablet 1 mg 1 mg Oral BID oxybutynin XL (DITROPAN XL) tablet 10 mg [address] pantop[address] (PROTONIX) tablet 40 mg 40 mg Oral QDAY(21) piperacillin/tazobactam (ZOSYN) 2.25 g/50 mL iso-osmotic IVPB 2.25 g Intravenous Q8H* sevelamer carbonate (RENVELA) tablet 800 mg 800 mg Oral TID w/ meals tacrolimus (PROGRAF) capsule 0.5 mg 0.5 mg Oral BID Continuous Infusions: PRN and Respiratory Meds: Objective: Vital Signs: Last Filed Vital Signs: 24 Hour Range BP: 123/68 (09/09 729) Temp: 37.3 C (99.2 F) (09/09 729) Pulse: 72 (09/09 729) Respirations: 18 PER MINUTE (09/09 729) SpO2: 92 % (09/09 0807) O2 Delivery: CPAP/BiPAP (Pt Owned) (09/09 729) BP: (116-139)/(50-68) Temp: [37 C (98.6 F)-37.3 C (99.2 F)] Pulse: [69-83] Respirations: [18 PER MINUTE] SpO2: [92 %-96 %] O2 Delivery: CPAP/BiPAP (Pt Owned) Vitals: 09/05/17 1130 09/07/17 1400 09/07/17 1809 Weight: (S) 91.5 kg (201 lb 11.5 oz) 99.6 kg (219 lb 9.3 oz) 97 kg (213 lb 13.5 oz) Intake/Output Summary: (Last 24 hours) Intake/Output Summary (Last 24 hours) at 09/09/17 1122 Last data filed at 09/09/17 0731 Gross per 24 hour Intake 555 ml Output 0 ml Net 555 ml Stool Occurrence: 1 Physical Exam General: Alert. No acute distress HEENT: NCAT. Moist mucous membranes. Lungs: Faint rales bilaterally Cardiac: Regular rate and rhythm Abdomen: Soft. Non-tender, non-distended. Normoactive bowel sounds Extremities: Bilateral lower extremities without swelling/erythema Neuro: Cranial nerves grossly intact. Moves all extremities spontaneously Psych: Pleasant and cooperative Lab Review 24-hour labs: Results for orders placed or performed during the hospital encounter of (from the past 24 hour(s)) PROTIME INR (PT) Collection Time: 09/09/17 3:01 AM Result Value Ref Range INR 1.3 (H) 0.8 - 1.2 CBC Collection Time: 09/09/17 3:01 AM Result Value Ref Range White Blood Cells 4.3 (L) 4.5 - 11.0 K/UL RBC 2.73 (L) 4.4 - 5.5 M/UL Hemoglobin 7.1 (L) 13.5 - 16.5 GM/DL Hematocrit 20.8 (L) 40 - 50 % MCV 76.4 (L) 80 - 100 FL MCH 26.1 26 - 34 PG MCHC 34.1 32.0 - 36.0 G/DL RDW 19.8 (H) 11 - 15 % Platelet Count 264 150 - 400 K/UL MPV 6.2 (L) 7 - 11 FL COMPREHENSIVE METABOLIC PANEL Collection Time: 09/09/17 3:01 AM Result Value Ref Range Sodium 135 (L) 137 - 147 MMOL/L Potassium 3.5 3.5 - 5.1 MMOL/L Chloride 98 98 - 110 MMOL/L Glucose 93 70 - 100 MG/DL Blood Urea Nitrogen 23 7 - 25 MG/DL Creatinine 6.12 (H) 0.4 - 1.24 MG/DL Calcium 10.2 8.5 - 10.6 MG/DL Total Protein 5.6 (L) 6.0 - 8.0 G/DL Total Bilirubin 0.3 0.3 - 1.2 MG/DL Albumin 2.8 (L) 3.5 - 5.0 G/DL Alk Phosphatase 55 25 - 110 U/L AST (SGOT) 7 7 - 40 U/L CO2 27 21 - 30 MMOL/L ALT (SGPT) 6 (L) 7 - 56 U/L Anion Gap 10 3 - 12 eGFR Non 9 (L) >60 mL/min eGFR 11 (L) >60 mL/min Point of Care Testing (Last 24 hours) Glucose: 93 (09/09/17 0301) Radiology and other Diagnostics Review: Pertinent radiology reviewed. Associated attestation - Ari Wilson MD - 09/09/2017 2:36 PM CDT Formatting of this note may be different from the original. ATTESTATION I personally interviewed and examined the patient, performed the yeh portions of the E/M visit, discussed case with resident and concur with resident documentation of history, physical exam, assessment, and treatment plan unless otherwise noted. Staff name: Ari Wilson MD Date: 09/09/2017 * Apryl Dobbs RN - 09/09/2017 11:15 AM CDT Medication Education Liz Hendricks accepted counseling and was interactive. he demonstrated understanding. The following medications were discussed: Eliquis, Aspirin, Lipitor, Lexapro, Zortress, Zosyn, Renvela, Prograf Where indicated, the patient was provided with additional medication and/or disease-state information. All patient questions were answered and patient acknowledged understanding of the medications, side effects and other pertinent medication information. Follow up should occur as needed. Continue to address: indications Apryl Dobbs RN * David Rivera, PT - 09/09/2017 9:16 AM CDT PHYSICAL THERAPY PROGRESS NOTE MOBILITY: Mobility Progressive Mobility Level: Walk in room Distance Walked (feet): 12 ft (x2 bouts) Level of Assistance: Assist X2 Assistive Device: Walker Time Tolerated: 11-30 minutes Activity Limited By: Fatigue;Weakness;Shortness of air SUBJECTIVE: Subjective Significant hospital events: recently diagnosed adenocarcinoma of the lung. Planned to establish with Dr. Ventura on 09/03/17 but is now hospitalized for tuberculosis rule-out Mental / Cognitive Status: Alert;Oriented;Cooperative Persons Present: Spouse;Nursing Staff Pain: Patient has no complaint of pain Pain Interventions: Patient agrees to participate in therapy Comments: Pt is on 4 liters oxygen. Ambulation Assist: Independent Mobility in Community with Endurance Limitations; Independent Mobility in Community with Device Patient Owned Equipment: Single Point Cane;Roller Walker Home Situation: Lives with Family Type of Home: House Entry Stairs: 1-2 Stairs In-Home Stairs: Able to Live on One Level Comments: Patient reports that it has been several days since he has been able to walk and that one of his main concerns is dizziness, as he describes that things look "purple," at times. This PT notes that patient tends to hold his breath during upright activity and requires frequent reminders to continue breathing. STRENGTH: Strength Strength Position Assessed: Seated Overall Strength: Generalized Weakness BED MOBILITY/TRANSFERS: Bed Mobility/Transfers Bed Mobility: Supine to Sit: Minimal Assist;Assist with Trunk;Head of Bed Elevated Bed Mobility: Sit to Supine: Moderate Assist;HOB Elevated;Use of Rail Comments: Patient requires additional assistance back into bed due to premature sitting on edge of bed post-gait activity Transfer Type: Sit to Stand Transfer: Assistance Level: From;Bed;Moderate Assist;x2 People Transfer: Assistive Device: Roller Walker Transfers: Type Of Assistance: For Safety Considerations;Verbal Cues;For Strength Deficit;For Balance Other Transfer Type: Sit to/from Stand Other Transfer: Assistance Level: To/From;Toilet;Moderate Assist;x2 People Other Transfer: Assistive Device: Roller Walker Other Transfer: Type Of Assistance: For Safety Considerations;Verbal Cues;For Strength Deficit;For Balance End Of Activity Status: In Bed;Nursing Notified;Instructed Patient to Request Assist with Mobility;Instructed Patient to Use Call Light GAIT: Gait Gait Distance: 12 feet (x2 bouts) Gait: Assistance Level: Moderate Assist;of 1st person;Standby Assist;of 2nd person;Safety Considerations Gait: Assistive Device: Roller Walker Gait: Descriptors: Pace: Slow;Forward trunk flexion;Decreased step length Comments: On initial bout to restroom, patient initially requires only minimal assistance of one staff with additional cues for appropriate breathing strategies. On way back from restroom, patient begins to fatigue and begins to prematurely sit edge of bed prior to fully squaring up roller walker and required moderate assistance from this PT to safely complete transition. He reports that "things began to look purple," during this transition. Nursing staff in room to observe this sequence this morning. Activity Limited By: Weakness;Complaint of Fatigue;Complaint of Dizziness EDUCATION: Education Persons Educated: Patient/Family Patient Barriers To Learning: None Noted Interventions: Repetition of Instructions Teaching Methods: Verbal Instruction Patient Response: Verbalized Understanding;More Instruction Required Topics: Plan/Goals of PT Interventions;Mobility Progression;Use of Assistive Device/Orthosis;Safety Awareness;Importance of Increasing Activity;Recommend Continued Therapy;Up with Assist Only ASSESSMENT/PROGRESS: Assessment/Progress Impaired Mobility Due To: Decreased Strength;Decreased Activity Tolerance; Medical Status Limitation Assessment/Progress: Expect Slow Progress Comments: Patient presents with multiple medical complications that affect his overall functional progression. AM-PAC 6 Clicks Basic Mobility Inpatient Turning from your back to your side while in a flat bed without using bed rails : A Little Moving from lying on your back to sitting on the side of a flatbed without using bedrails : A Little Moving to and from a bed to a chair (including a wheelchair): A Lot Standing up from a chair using your arms (e.g. wheelchair, or bedside chair): A Lot To walk in hospital room: A Lot Climbing 3-5 steps with a railing: Total Raw Score: 13 Standardized (T-scale) Score: 33.99 Basic Mobility CMS 0-100%: 57.65 CMS G Code Modifier for Basic Mobility: CK GOALS: Goals Goal Formulation: With Patient/Family Time For Goal Achievement: 7 days Pt Will Go Supine To/From Sit: Independently Pt Will Transfer Bed/Chair: w/ Stand By Assist Pt Will Ambulate: 51-100 Feet, w/ Walker, w/ Stand By Assist Pt Will Go Up / Down Stairs: 1-2 Stairs, w/ Stand By Assist PLAN: Plan Treatment Interventions: Mobility Training;Balance Activities;Endurance Training ;Strengthening Plan Frequency: 5 Days per Week Comments: Progress upright activity as able with cues for energy conservation. Recommend wheelchair follow when progressing gait distance. RECOMMENDATIONS: PT Discharge Recommendations PT Discharge Recommendations: Inpatient Setting Equipment Recommendations: Roller Walker Patient requires the use of a walker with wheels to complete ADLs in the home including meal preparation, ambulation the bathroom for toileting, bathing and grooming, and safe home mobility. Patient is unable to complete these ADL s with a cane or crutch. Therapist: David Rivera, PT, DPT Date: 09/09/2017 * Wendy Elkins RT - 09/08/2017 9:04 PM CDT Formatting of this note may be different from the original. RESPIRATORY THERAPY ADULT PROTOCOL EVALUATION RESPIRATORY PROTOCOL PLAN Medications Albuterol/Ipratropium: Neb PRN (pt states he would prefer tx's PRN) Note: If indicated by protocol, medication orders will be placed by therapist. Procedures Oxygen/Humidity: O2 to keep SpO2 > 92% Monitoring: Pulse oximetry BID & PRN PATIENT EVALUATION RESULTS Chart Review * Pulmonary Hx: Hx pulmonary disease, hx reactive or obstructive airway disease (PEFR & AM) OR regular home use of bronchodilators (AM) OR inhaled or systemic steroid use for lungs < or equal to 4 times/yr (AM) * Surgical Hx: No surgery OR last surgery > 6 weeks ago OR trach/stoma (BA) * Chest X-Ray: Clear OR not available * PFT/Oxygenation: FEV1, PEFR < 70% OR Pa02 < 70 RA OR Sp02 <92% RA OR Fi02 > 0.21 to keep Sp02 > 92% OR < 24 hours post-op (02 & oxim) OR chronic C02 retention (C02) Patient Assessment * Respiratory Pattern: Regular pattern and rate OR good chest excursion with deep breathing * Breath Sounds: Clear apically, but diminished in bases (LE) OR CHF related crackles (02) (oximetry) * Cough / Sputum: Strong, effective cough OR nonproductive * Mental Status: Alert, oriented, cooperative * Activity Level: Ambulatory with assistance Priority Index Total Points: 7 Points * Priority Index: 1+ PRIORITY INDEX GUIDELINES* Priority Points 1 0-9 points 2 9-18 points 3 > 18 points + Pulm Dx or Home Rx *Higher points indicate higher acuity. Therapist: WENDY ELKINS RT Date: 09/08/2017 Yeh AC=Airway clearance AM=Aerosolized medication BA=[place] aerosol DB&C=Deep breathe & cough FEV1=Forced expiratory volume in first second) IC=Inspiratory capacity LE=Lung expansion MDI=Metered dose inhaler Neb=Nebulizer O2=Oxygen Oxim=Oximetry PEFR=Peak expiratory flow rate [employer] ASSEMBLER=Rapid Response Team * Jenni Anaya, TRAFFIC OPERATOR - 09/08/2017 2:52 PM CDT PHYSICAL THERAPY PROGRESS NOTE MOBILITY: Mobility Progressive Mobility Level: Active transfer to chair Distance Walked (feet): 5 ft Level of Assistance: Assist X1 Assistive Device: Walker Time Tolerated: 11-30 minutes Activity Limited By: Fatigue;Weakness SUBJECTIVE: Subjective Significant hospital events: recently diagnosed adenocarcinoma of the lung. Planned to establish with Dr. Ventura on 09/03/17 but is now hospitalized for tuberculosis rule-out Mental / Cognitive Status: Alert;Cooperative Persons Present: Cinder [employer] Mason Pain: Patient has no complaint of pain Pain Interventions: Patient agrees to participate in therapy Comments: Pt was sitting in the chair and stated he was very tired. Pt agreed to seated LE exercises. Per pt, he moved to the chair approximately 10 minutes earlier. Comments: Pt is on 4 liters oxygen. Ambulation Assist: Independent Mobility in Community with Endurance Limitations; Independent Mobility in Community with Device Patient Owned Equipment: Single Point Cane;Roller Walker Home Situation: Lives with Family Type of Home: House Entry Stairs: 1-2 Stairs In-Home Stairs: Able to Live on One Level ACTIVITY/EXERCISE: Activity / Exercise Activity Limited By: Weakness;Complaint of Fatigue;SOA Exercise: Seated;RLE;LLE;Active ROM Exercise Repetitions: 12 (ankle pumps, long arc quads, marching, hip IR/ER) Comments: oxygen saturation remained at 96% throughout the session. EDUCATION: Education Persons Educated: Patient Patient Barriers To Learning: None Noted Teaching Methods: Verbal Instruction Patient Response: Verbalized Understanding Topics: Mobility Progression ASSESSMENT/PROGRESS: Assessment/Progress Impaired Mobility Due To: Decreased Strength;Decreased Activity Tolerance; Medical Status Limitation Assessment/Progress: Expect Slow Progress AM-PAC 6 Clicks Basic Mobility Inpatient Turning from your back to your side while in a flat bed without using bed rails : A Little Moving from lying on your back to sitting on the side of a flatbed without using bedrails : A Little Moving to and from a bed to a chair (including a wheelchair): A Little Standing up from a chair using your arms (e.g. wheelchair, or bedside chair): A Little To walk in hospital room: A Lot Climbing 3-5 steps with a railing: Total Raw Score: 15 Standardized (T-scale) Score: 36.97 Basic Mobility CMS 0-100%: 50.4 CMS G Code Modifier for Basic Mobility: CK GOALS: Goals Goal Formulation: With Patient/Family Time For Goal Achievement: 7 days Pt Will Go Supine To/From Sit: Independently Pt Will Transfer Bed/Chair: w/ Stand By Assist Pt Will Ambulate: 51-100 Feet, w/ Walker, w/ Stand By Assist Pt Will Go Up / Down Stairs: 1-2 Stairs, w/ Stand By Assist PLAN: Plan Treatment Interventions: Mobility Training;Balance Activities;Endurance Training ;Strengthening Plan Frequency: 5 Days per Week Comments: *progress ambulation with chair follow RECOMMENDATIONS: PT Discharge Recommendations PT Discharge Recommendations: Inpatient Setting Equipment Recommendations: Roller Walker Patient requires the use of a walker with wheels to complete ADL's in the home. Patient is safe ambulating at a walker level. Patient is unable to complete ADL's with a cane or crutch. Therapist: Jenni Anaya, Physical therapist research assistant professor Date: 09/08/2017 * Francia Bonds, OT - 09/08/2017 2:25 PM CDT Formatting of this note may be different from the original. OCCUPATIONAL THERAPY ASSESSMENT NOTE Patient Name: Liz Hendricks Room/Bed: [place] [address] Admitting Diagnosis: Lung Cancer vs TB Acid-fast bacteria present Past Medical History: Diagnosis Date Arthritis Ascites Basal cell carcinoma CKD (chronic kidney disease) 06/06/2012 COPD (chronic obstructive pulmonary disease) (HCC) Dialysis patient (HCC) M-W-F Edema End-stage liver disease (HCC) Gastrointestinal disorder GERD (gastroesophageal reflux disease) Hepatic encephalopathy (HCC) 07/25/2012 History of alcohol abuse 08/02/2012 History of esophageal varices 08/02/2012 Hypertension 08/02/2012 Murmur Pancreatitis 2014 Personal history of ascites 06/06/2012 Squamous cell carcinoma Transplant Liver Type II diabetes mellitus (HCC) 08/02/2012 Mobility Progressive Mobility Level: Active transfer to chair Distance Walked (feet): 5 ft Level of Assistance: Assist X1 Assistive Device: Walker Time Tolerated: 11-30 minutes Activity Limited By: Fatigue Subjective Pertinent Dx per Physician: malewith a past medical history most pertinent for 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 Precautions: Falls;Standard;O2 Requirement (3L) Pain / Complaints: Patient has no c/o pain Objective Psychosocial Status: Willing and Cooperative to Participate Persons Present: None Home Living Type of Home: House Home Layout: One Level Bathroom Shower / Tub: Tub/Shower Unit Bathroom Toilet: Standard Prior Function Level Of [place]: Independent with ADLs and functional transfers; Independent with homemaking w/ ambulation Lives With: Spouse Receives Help From: None Needed Vision Current Vision: Wears Glasses Only for Reading Ocular Range Of Motion: Within Normal Limits Current Vision: Wears Glasses Only for Reading Ocular Range Of Motion: Within Normal Limits ADL's Where Assessed: Edge of Bed;Chair Grooming Assist: Stand By Assist Grooming Deficits: Setup;Brushing Hair LE Dressing Assist: Total Assist LE Dressing Deficits: Don/Doff R Sock;Don/Doff L Sock Functional Transfer Assist: Moderate Assist (supine to EOB and sit to stand) Comment: Min assist transfer to chair Activity Tolerance Endurance: 2/5 Tolerates 10-20 Minutes Exercise w/Multiple Rests Sitting Balance: 4/5 Moves/Returns Trunkal Midpoint 1-2 Inches in Multiple Planes Cognition Overall Cognitive Status: WFL to Adequately Complete Self Care Tasks Safely Orientation: Alert & Oriented x4 UE AROM Overall BUE AROM WNL: Yes Coordination: Serial Opposition WNL for Rate, Rhythm, Placement Grasp: Bilateral Grasp Functional for Activity Edema RUE Edema: No Significant Edema LUE Edema: No Significant Edema Sensory Overall Sensory: Bilateral Intact UE Strength / Tone Overall Strength / Tone: WFL Able to Perform ADL Tasks R Negin: No Increase in Muscle Tone L Negin: No Increase in Muscle Tone Education Persons Educated: Patient Barriers To Learning: None Noted Teaching Methods: Verbal Instruction Patient Response: Verbalized Understanding Topics: Role of OT, Goals for Therapy Assessment Assessment: Decreased ADL Status;Decreased UE Strength;Decreased Endurance; Decreased Self-Care Trans;Decreased High-Level ADLs Prognosis: Fair;w/Cont OT s/p Acute Discharge AM-PAC 6 Clicks Daily Activity Inpatient Putting on and taking off regular lower body clothes?: A Lot Bathing (Including washing, rinsing, drying): A Lot Toileting, which includes using toilet, bedpan, or urinal: A Lot Putting on and taking off regular upper body clothing: A Little Taking care of personal grooming such as brushing teeth: A Little Eating meals?: None Daily Activity Raw Score: 16 Standardized (t-scale) score: 35.96 CMS 0-100% Score: 53.32 CMS G Code Modifier: CK AM-PAC Daily Activity Functional Stage: -2.73-40 No Independent Tasks G-Codes: Self-care G8987 Current Status: 40-59% Impairment G8988 Goal Status: 20-39% Impairment Based on above evaluation and clinical judgment. Plan Treatment Interventions: ADL Retraining;Functional Transfer Training;Endurance Training;Compensatory Technique Education OT Frequency: 5x/week Plan for next session: Grooming tasks at sink and commode transfer ADL Goals Patient Will Perform Grooming: Standing at Sink;w/ Minimum Assist Patient Will Perform LE Dressing: In Chair;w/ Moderate Assist Functional Transfer Goals Pt Will Transfer To Bedside Commode: w/ Minimum Assist, w/ Assistive Device OT Discharge Recommendations OT Discharge Recommendations: Inpatient Setting Equipment Recommendations: Too early to be determined Therapist: Francia Bonds OT/[place] [id number] Date: 09/08/2017 * Faith Jordan DO - 09/08/2017 11:16 AM CDT Formatting of this note may be different from the original. General Progress Note Name: Liz Hendricks Today's Date: 09/08/2017 Admission Date: 08/31/2017 LOS: 8 days Assessment/Plan: Active Problems: Liver transplanted (HCC) Immunosuppression (HCC) Acid-fast bacteria present Primary lung adenocarcinoma (HCC) ESRD (end stage renal disease) on dialysis (HCC) GERD (gastroesophageal reflux disease) Severe malnutrition (HCC) Mycobacterial infection Primary adenocarcinoma of lung (HCC) Liz Hendricks is a 76 y.o. 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 Will transfuse one unit of blood today as Hb is 6.4. Acute hypoxemic respiratory failure- improving -S/p rapid response this am -AB.51, pCO2 38, pO2 55 on 4 Lpm -spO2 at 81% and bumped to 11 LPM of O2 -Well's score of 8, D-dimer 1289 -Patient satting well on 3 LMP after this episode -CXR appears mildly improved from previous -CTA with small PE in lingula, consolidation present, possible pneumonia vs malignancy PLAN >Pulmonology following, appreciate recs >Plan for bronchoscopy today >Empiric abx de-escalated to zosyn >TRAFFIC OPERATOR CPAP 11-->now on hospital machine BiPAP with IPAP of 20 and EPAP 4 with 4L o2 bleed in >Consider sleep medicine consult on Sunday for home BiPAP Positive acid-fast bacteria culture Assessment Unclear significance at this point, it is certainly possible that this is only a MAC infection. - The patient is quite immunocompromised secondary to his immunosuppression for orthotopic liver transplant. - He does not have any risk factors for tuberculosis. - Symptomatically, the patient is relatively unchanged over the past several months since he was hospitalized for the pneumonia. Nevertheless, will be important to rule out active tuberculosis and further workup this finding. Plan Acid-fast bacteria sputum 3 negative--will remove isolation precautions Infectious disease consulted, appreciate recs: Suspect NTM rather than TB. --Pulmonary consult for assistance with bronchoscopy History of orthotopic liver transplant Orthotopic liver transplant in 2012. --He has been immunosuppressed with tacrolimus and everolimus. This has been complicated by biliary stricture requiring stent. He follows with Dr. Regan Brock of our hepatology department here. Plan: Hepatology consulted, appreciate recs: Will adjust dosages of immunosuppressants based on levels. . >tacrolimus (goal ~3) and everolimus (goal ~5) levels Adenocarcinoma - Bronchoscopy and biopsies were taken at OSH on 08/13; biopsies revealed adenocarcinoma - Patient has not initiated treatment - Patient planned to establish with [facility] this week but has been hospitalized Plan: - Consult medical oncology >Patient will need PET for staging - Consult pulmonology, as above >Repeat bronchoscopy results pending History of end-stage renal disease (secondary to immunosuppression) on Sunday, , Sunday dialysis Nephrology consulted, appreciate recs: Patient to continue his TTS dialysis schedule. Continue sevelamer 800 mg TID with meals for hyperphosphatemia. Check iron studies. Continue TRAFFIC OPERATOR phosphate binder Hypertension Continue TRAFFIC OPERATOR amlodipine and Cardura History of GERD Continue TRAFFIC OPERATOR pantoprazole FEN: Renal dialysis diet PPx: Heparin Code Status: DNAR-FI Disposition: Continue admission to inpatient internal medicine under care of the [facility] 2 team. Patient seen and discussed with Dr. Wilson. Faith Jordan, DO PGY-1 Subjective Liz Hendricks is a 76 y.o. male. Overnight, no acute events. He is sleeping with BiPAP on. His reports that he had a good night. He is sleeping, but easily wakes to voice. He reports fatigue. He denies fever, chills, chest pain, abdominal pain, constipation, diarrhea, changes in urination, extremity edema. Medications Scheduled Meds: albuterol 0.5% (PROVENTIL; VENTOLIN) nebulizer solution 2.5 mg 2.5 mg Inhalation BID & PRN amLODIPine (NORVASC) tablet 10 mg 10 mg Oral QDAY aspirin chewable tablet 81 mg 81 mg Oral QDAY atorvastatin (LIPITOR) tablet 10 mg 10 mg Oral QDAY doxazosin (CARDURA) tablet 2 mg 2 mg Oral QDAY escitalopram oxalate (LEXAPRO) tablet 10 mg 10 mg Oral QDAY everolimus (immunosuppressive) (ZORTRESS) tablet 1 mg 1 mg Oral BID ipratropium bromide (ATROVENT) 0.02 % nebulizer solution 0.5 mg 0.5 mg Inhalation BID & PRN oxybutynin XL (DITROPAN XL) tablet 10 mg 10 [address]op[address]ole [address] (PROTONIX) tablet 40 mg 40 mg Oral QDAY(21) piperacillin/tazobactam (ZOSYN) 2.25 g/50 mL iso-osmotic IVPB 2.25 g Intravenous Q8H* sevelamer carbonate (RENVELA) tablet 800 mg 800 mg Oral TID w/ meals tacrolimus (PROGRAF) capsule 0.5 mg 0.5 mg Oral BID Continuous Infusions: PRN and Respiratory Meds: Review of Systems: Constitutional: Denies fever and chills. Respiratory: Endorses shortness of breath with exertion and cough. Denies shortness of breath at rest. Objective: Vital Signs: Last Filed Vital Signs: 24 Hour Range BP: 122/50 (09/08 1041) Temp: 36.9 C (98.5 F) (09/08 1041) Pulse: 77 (09/08 104) Respirations: 20 PER MINUTE (09/08 104) SpO2: 95 % (09/08 104) O2 Delivery: Nasal Cannula (09/08 1041) SpO2 Pulse: 71 (09/07 180) BP: (111-138)/(46-63) Temp: [36.7 C (98.1 F)-37.4 C (99.3 F)] Pulse: [69-80] Respirations: [15 PER MINUTE-23 PER MINUTE] SpO2: [92 %-98 %] O2 Delivery: Nasal Cannula Intensity Pain Scale 0-10 (Pain 1): Asleep (09/08/17 0415) Vitals: 09/05/17 1130 09/07/17 1400 09/07/17 1809 Weight: (S) 91.5 kg (201 lb 11.5 oz) 99.6 kg (219 lb 9.3 oz) 97 kg (213 lb 13.5 oz) Intake/Output Summary: (Last 24 hours) Intake/Output Summary (Last 24 hours) at 09/08/17 1116 Last data filed at 09/07/17 2245 Gross per 24 hour Intake 1380 ml Output 2300 ml Net -920 ml Stool Occurrence: 1 Physical Exam General: Alert, cooperative, elderly male, lying in bed in no apparent distress. HEENT: Atraumatic, normocephalic. Heart: Regular rate and rhythm without murmur. Lungs: Fine crackles to auscultation in bilateral lower lung thomason Abdomen: Soft, non-distended. Bowel sounds auscultated throughout. Non-tender to palpation. No masses or organomegaly. Extremities: No clubbing, cyanosis, or edema. Lab Review 24-hour labs: Results for orders placed or performed during the hospital encounter of (from the past 24 hour(s)) PTT (APTT) Collection Time: 09/07/17 12:53 PM Result Value Ref Range APTT 74.6 (H) 21.0 - 39.0 SEC PROTIME INR (PT) Collection Time: 09/08/17 3:20 AM Result Value Ref Range INR 1.2 0.8 - 1.2 CBC Collection Time: 09/08/17 3:20 AM Result Value Ref Range White Blood Cells 3.3 (L) 4.5 - 11.0 K/UL RBC 2.47 (L) 4.4 - 5.5 M/UL Hemoglobin 6.4 (L) 13.5 - 16.5 GM/DL Hematocrit 18.9 (L) 40 - 50 % MCV 76.5 (L) 80 - 100 FL MCH 25.9 (L) 26 - 34 PG MCHC 33.8 32.0 - 36.0 G/DL RDW 19.6 (H) 11 - 15 % Platelet Count 249 150 - 400 K/UL MPV 6.3 (L) 7 - 11 FL COMPREHENSIVE METABOLIC PANEL Collection Time: 09/08/17 3:20 AM Result Value Ref Range Sodium 137 137 - 147 MMOL/L Potassium 3.4 (L) 3.5 - 5.1 MMOL/L Chloride 100 98 - 110 MMOL/L Glucose 93 70 - 100 MG/DL Blood Urea Nitrogen 14 7 - 25 MG/DL Creatinine 4.31 (H) 0.4 - 1.24 MG/DL Calcium 9.9 8.5 - 10.6 MG/DL Total Protein 5.6 (L) 6.0 - 8.0 G/DL Total Bilirubin 0.3 0.3 - 1.2 MG/DL Albumin 2.7 (L) 3.5 - 5.0 G/DL Alk Phosphatase 52 25 - 110 U/L AST (SGOT) 7 7 - 40 U/L CO2 29 21 - 30 MMOL/L ALT (SGPT) 6 (L) 7 - 56 U/L Anion Gap 8 3 - 12 eGFR Non 14 (L) >60 mL/min eGFR 16 (L) >60 mL/min LDH-LACTATE DEHYDROGENASE Collection Time: 09/08/17 3:20 AM Result Value Ref Range Lactate Dehydrogenase 169 100 - 210 U/L HAPTOGLOBIN Collection Time: 09/08/17 8:35 AM Result Value Ref Range Haptoglobin 358 (H) 16 - 200 MG/DL Point of Care Testing (Last 24 hours) Glucose: 93 (09/08/17 0320) Radiology and other Diagnostics Review: Pertinent radiology reviewed. Associated attestation - Ari Wilson MD - 09/08/2017 12:59 PM CDT Formatting of this note may be different from the original. ATTESTATION I personally interviewed and examined the patient, performed the yeh portions of the E/M visit, discussed case with resident and concur with resident documentation of history, physical exam, assessment, and treatment plan unless otherwise noted. Staff name: Ari Wilson MD Date: 09/08/2017 * Franchesca Schofield, RT - 09/08/2017 8:12 AM CDT PT currently on Autotitration BiPAP with a max of 20 and min pressure of 4. addressed concern about new settings and patients current CPAP machine from [facility]. Home machine appears to be the same model as our respironics BIPAP patient is currently using, however, machine is locked into home order of CPAP 11. If patient is to continue on autotitration at home order will need to be placed with [facility] and [facility] willl need to come and change settings on current home machine. * Ismael Cardoso RN - 09/08/2017 2:13 AM CDT I have reviewed the notes, assessments, and/or procedures performed by Stephanie Tacos, and concur with her/his documentation unless otherwise noted. * Omer Alvarado MD - 09/07/2017 5:26 PM CDT I have seen and examined the patient on HD today. Pt resting comfortably w/o complaints. On exam, NAD, lungs CTA, heart RR, trace edema. BP and lytes stable. Plan on 2 liters of UF today as BP tolerates. Pt is on a heparin gtt currently running at 53 ml/hr - have asked the dialysis nurse to contact pharmacy to see if they can further concentrate this gtt to avoid excess volume administration. * Mariella Mroris RN - 09/07/2017 2:16 PM CDT Received order for RT to change CPAP settings to patient's highest pressure form last night. RN informed RT. RT states patient is on auto titration, unable to adjust personal home CPAP machine. Upon DC will need written prescription with new settings and [facility] may adjust CPAP. Settings written down and placed on personal CPAP. M2 paged and notified of RT's message. * Mariella Morris RN - 09/07/2017 2:15 PM CDT Informed KIERSTEN Sol in Dialysis patient's PTT resulted at 74.6. Ebenezer to adjust heparin gtt. * Faith Jordan DO - 09/07/2017 2:06 PM CDT Formatting of this note may be different from the original. General Progress Note Name: Liz Hendricks Today's Date: 09/07/2017 Admission Date: 08/31/2017 LOS: 7 days Assessment/Plan: Active Problems: Liver transplanted (HCC) Immunosuppression (HCC) Acid-fast bacteria present Primary lung adenocarcinoma (HCC) ESRD (end stage renal disease) on dialysis (HCC) GERD (gastroesophageal reflux disease) Severe malnutrition (HCC) Mycobacterial infection Primary adenocarcinoma of lung (HCC) Liz Hendricks is a 76 y.o. 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 Acute hypoxemic respiratory failure- improving -S/p rapid response this am -AB.51, pCO2 38, pO2 55 on 4 Lpm -spO2 at 81% and bumped to 11 LPM of O2 -Well's score of 8, D-dimer 1289 -Patient satting well on 3 LMP after this episode -CXR appears mildly improved from previous -CTA with small PE in lingula, consolidation present, possible pneumonia vs malignancy PLAN >Pulmonology following, appreciate recs >Plan for bronchoscopy today >Empiric abx de-escalated to zosyn >CPAP at night with 6L O2 bleed in, patient to wear auto-titrate CPAP rather than home CPAP >Plan for regular HD after CTA Positive acid-fast bacteria culture Assessment Unclear significance at this point, it is certainly possible that this is only a MAC infection. - The patient is quite immunocompromised secondary to his immunosuppression for orthotopic liver transplant. - He does not have any risk factors for tuberculosis. - Symptomatically, the patient is relatively unchanged over the past several months since he was hospitalized for the pneumonia. Nevertheless, will be important to rule out active tuberculosis and further workup this finding. Plan Acid-fast bacteria sputum 3 negative--will remove isolation precautions Infectious disease consulted, appreciate recs: Suspect NTM rather than TB. --Pulmonary consult for assistance with bronchoscopy History of orthotopic liver transplant Orthotopic liver transplant in 2012. --He has been immunosuppressed with tacrolimus and everolimus. This has been complicated by biliary stricture requiring stent. He follows with Dr. Regan Brock of our hepatology department here. Plan: Hepatology consulted, appreciate recs: Will adjust dosages of immunosuppressants based on levels. . >tacrolimus (goal ~3) and everolimus (goal ~5) levels Adenocarcinoma - Bronchoscopy and biopsies were taken at OSH on 08/13; biopsies revealed adenocarcinoma - Patient has not initiated treatment - Patient planned to establish with [facility] this week but has been hospitalized Plan: - Consult medical oncology >Patient will need PET for staging - Consult pulmonology, as above >Repeat bronchoscopy results pending History of end-stage renal disease (secondary to immunosuppression) on Sunday, , Sunday dialysis Nephrology consulted, appreciate recs: Patient to continue his TTS dialysis schedule. Continue sevelamer 800 mg TID with meals for hyperphosphatemia. Check iron studies. Continue TRAFFIC OPERATOR phosphate binder Hypertension Continue TRAFFIC OPERATOR amlodipine and Cardura History of GERD Continue TRAFFIC OPERATOR pantoprazole FEN: Renal dialysis diet PPx: Heparin Code Status: DNAR-FI Disposition: Continue admission to inpatient internal medicine under care of the Med 2 team. Patient seen and discussed with Dr. Wilson. Faith Jordan, PGY-1 Subjective Liz Hendricks is a 76 y.o. male. Overnight, no acute events. He is sleeping with CPAP on. His daughter reports that he got out of bed to go to the bathroom and was very unsteady. He had two person support at the time. Daughter is concerned for potential discharge. He also had desaturation to 83% overnight and improved with increased O2 to 6 L via CPAP. He denies fever, chills, chest pain, abdominal pain, constipation, diarrhea, changes in urination, extremity edema. Medications Scheduled Meds: albuterol 0.5% (PROVENTIL; VENTOLIN) nebulizer solution 2.5 mg 2.5 mg Inhalation BID & PRN amLODIPine (NORVASC) tablet 10 mg 10 mg Oral QDAY apixaban (ELIQUIS) tablet 5 mg 5 mg Oral BID aspirin chewable tablet 81 mg 81 mg Oral QDAY atorvastatin (LIPITOR) tablet 10 mg 10 mg Oral QDAY doxazosin (CARDURA) tablet 2 mg 2 mg Oral QDAY escitalopram oxalate (LEXAPRO) tablet 10 mg 10 mg Oral QDAY everolimus (immunosuppressive) (ZORTRESS) tablet 1 mg 1 mg Oral BID heparin (porcine) BOLUS for continuous inf (bag) 1,830-3,660 Units 20-40 Units/ kg Intravenous As Prescribed ipratropium bromide (ATROVENT) 0.02 % nebulizer solution 0.5 mg 0.5 mg Inhalation BID & PRN oxybutynin XL (DITROPAN XL) tablet 10 mg [address] (PROTONIX) tablet 40 mg 40 mg Oral QDAY(21) piperacillin/tazobactam (ZOSYN) 2.25 g/50 mL iso-osmotic IVPB 2.25 g Intravenous Q8H* sevelamer carbonate (RENVELA) tablet 800 mg 800 mg Oral TID w/ meals tacrolimus (PROGRAF) capsule 0.5 mg 0.5 mg Oral BID Continuous Infusions: heparin (porcine) 20,000 units/D5W 500 mL infusion (std conc)(premade) PRN and Respiratory Meds: Review of Systems: Constitutional: Denies fever and chills. Respiratory: Endorses shortness of breath with exertion and cough. Denies shortness of breath at rest. Objective: Vital Signs: Last Filed Vital Signs: 24 Hour Range BP: 114/49 (09/07 1136) Temp: 36.9 C (98.5 F) (09/07 1136) Pulse: 75 (09/07 1136) Respirations: 18 PER MINUTE (09/07 1136) SpO2: 92 % (09/07 1136) O2 Delivery: Nasal Cannula (09/07 1136) SpO2 Pulse: 71 (09/06 1531) BP: (91-119)/(42-53) Temp: [36.7 C (98 F)-37.3 C (99.1 F)] Pulse: [69-86] Respirations: [14 PER MINUTE-22 PER MINUTE] SpO2: [90 %-99 %] O2 Delivery: Nasal Cannula Vitals: 09/03/17 1430 09/05/17 0800 09/05/17 1130 Weight: 93.3 kg (205 lb 11 oz) 93.5 kg (206 lb 2.1 oz) (S) 91.5 kg (201 lb 11.5 oz) Intake/Output Summary: (Last 24 hours) Intake/Output Summary (Last 24 hours) at 09/07/17 1406 Last data filed at 09/07/17 1252 Gross per 24 hour Intake 1789 ml Output 0 ml Net 1789 ml Stool Occurrence: 1 Physical Exam General: Alert, cooperative, elderly male, lying in bed in no apparent distress. HEENT: Atraumatic, normocephalic. Heart: Regular rate and rhythm without murmur. Lungs: Fine crackles to auscultation in LLL Abdomen: Soft, non-distended. Bowel sounds auscultated throughout. Non-tender to palpation. No masses or organomegaly. Extremities: No clubbing, cyanosis, or edema. Lab Review 24-hour labs: Results for orders placed or performed during the hospital encounter of (from the past 24 hour(s)) CULTURE-RESP,LOWER W/SENSITIVITY Collection Time: 09/06/17 2:30 PM Result Value Ref Range Battery Name LOWER RESP CULTURE Specimen Description BRONCHIAL ALVEOLAR LAVAGE, RLL Special Requests NONE Direct Gram Stain FEW NEUTROPHILS FEW COLUMNAR EPITHELIAL CELLS NO ORGANISMS SEEN Culture Culture in progress Report Status HERPES SIMPLEX PCR - NON-BLOOD Collection Time: 09/06/17 2:30 PM Result Value Ref Range Specimen, Herpes BRONCHIAL ALVEOLAR LAVAGE Herpes Simplex PCR HSV 1 and 2 NOT DETECTED [employer] HSV 1&2 Assay is a qualitative real-time PCR test for the direct detection and differentiation of HSV 1 and 2 DNA. This assay is FDA approved for testing cutaneous or mucocutaneous lesions from symptomatic patients. Performance on modifications of this test as well as other specimen types has been validated by the Department of Pathology and Laboratory Medicine at the [facility]. RVP VIRAL PANEL PCR Collection Time: 09/06/17 2:30 PM Result Value Ref Range Specimen Source BRONCHIAL ALVEOLAR LAVAGE Adenovirus NOT DETECTED Coronavirus 229E NOT DETECTED Coronavirus HKU1 NOT DETECTED Coronavirus NL63 NOT DETECTED Coronavirus OC43 NOT DETECTED Human Metapneumovirus NOT DETECTED Human Rhinovirus/ENTEROVIRUS NOT DETECTED Influenza A H1N1 2009 NOT DETECTED Influenza A H1 NOT DETECTED Influenza A H3 NOT DETECTED Influenza B NOT DETECTED Parainfluenza 1 NOT DETECTED Parainfluenza 2 NOT DETECTED Parainfluenza 3 NOT DETECTED Parainfluenza 4 NOT DETECTED RSV NOT DETECTED Bordetella Pertussis NOT DETECTED Chlamydophila Pneumoniae NOT DETECTED Mycoplasma Pneumoniae NOT DETECTED CELL COUNT W/DIFF-FLUIDS Collection Time: 09/06/17 2:30 PM Result Value Ref Range White Blood Cells,Fluid 440 /UL Red Blood Cells,Fluid 800 /UL Segmented Neutrophils, Fluid % CELLS TO DEGENERATED FOR DIFFERENTIAL/SLIDE AVAILABLE/AC Fluid Source BRONCHIAL ALVEOLAR LAVAGE Pathology Interpretation,Fluid Pathologist Signature GRAM STAIN Collection Time: 09/06/17 2:30 PM Result Value Ref Range Battery Name GRAM STAIN Specimen Description BRONCHIAL ALVEOLAR LAVAGE, RLL Special Requests NONE Gram Stain FEW NEUTROPHILS FEW COLUMNAR EPITHELIAL CELLS NO ORGANISMS SEEN Report Status FINAL 09/07/2017 PTT (APTT) Collection Time: 09/06/17 4:39 PM Result Value Ref Range APTT 27.5 21.0 - 39.0 SEC PTT (APTT) Collection Time: 09/06/17 10:52 PM Result Value Ref Range APTT 53.2 (H) 21.0 - 39.0 SEC PROTIME INR (PT) Collection Time: 09/07/17 5:55 AM Result Value Ref Range INR 1.1 0.8 - 1.2 PTT (APTT) Collection Time: 09/07/17 5:55 AM Result Value Ref Range APTT 52.4 (H) 21.0 - 39.0 SEC COMPREHENSIVE METABOLIC PANEL Collection Time: 09/07/17 5:55 AM Result Value Ref Range Sodium 133 (L) 137 - 147 MMOL/L Potassium 3.8 3.5 - 5.1 MMOL/L Chloride 95 (L) 98 - 110 MMOL/L Glucose 95 70 - 100 MG/DL Blood Urea Nitrogen 25 7 - 25 MG/DL Creatinine 7.25 (H) 0.4 - 1.24 MG/DL Calcium 10.4 8.5 - 10.6 MG/DL Total Protein 6.0 6.0 - 8.0 G/DL Total Bilirubin 0.3 0.3 - 1.2 MG/DL Albumin 3.1 (L) 3.5 - 5.0 G/DL Alk Phosphatase 58 25 - 110 U/L AST (SGOT) 7 7 - 40 U/L CO2 25 21 - 30 MMOL/L ALT (SGPT) 6 (L) 7 - 56 U/L Anion Gap 13 (H) 3 - 12 eGFR Non 7 (L) >60 mL/min eGFR 9 (L) >60 mL/min CBC Collection Time: 09/07/17 5:55 AM Result Value Ref Range White Blood Cells 5.0 4.5 - 11.0 K/UL RBC 2.83 (L) 4.4 - 5.5 M/UL Hemoglobin 7.3 (L) 13.5 - 16.5 GM/DL Hematocrit 21.5 (L) 40 - 50 % MCV 76.0 (L) 80 - 100 FL MCH 25.8 (L) 26 - 34 PG MCHC 34.0 32.0 - 36.0 G/DL RDW 20.3 (H) 11 - 15 % Platelet Count 236 150 - 400 K/UL MPV 6.7 (L) 7 - 11 FL PTT (APTT) Collection Time: 09/07/17 12:53 PM Result Value Ref Range APTT 74.6 (H) 21.0 - 39.0 SEC Point of Care Testing (Last 24 hours) Glucose: 95 (09/07/17 0555) Radiology and other Diagnostics Review: Pertinent radiology reviewed. Associated attestation - Ari Wilson MD - 09/07/2017 7:36 PM CDT Formatting of this note may be different from the original. ATTESTATION I personally interviewed and examined the patient, performed the yeh portions of the E/M visit, discussed case with resident and concur with resident documentation of history, physical exam, assessment, and treatment plan unless otherwise noted. Staff name: Ari Wilson MD Date: 09/07/2017 * Mariella Morris, RN - 09/07/2017 1:53 PM CDT Patient off unit via bed to Dialysis. 1843: Pt. Returned to unit via bed. * Laron Aguilar, PT - 09/07/2017 1:26 PM CDT PHYSICAL THERAPY NOTE PT attempted to see pt with pet care technician ([id number]) Pt declined out of bed activity despite MAX encouragement- of note pt on 4LO2 95% SPO2, pt to leave unit for PM dialysis, prior pt was up to chair requiring Ax2. PT discussed pt with daughter for PLOF (see addendd assessment). PT will continue to follow and treat as appropriate. Therapist: Laron Aguilar PT DPT [id number] Date: 09/07/2017 * Conner Lynn MD - 09/07/2017 1:12 PM CDT Formatting of this note may be different from the original. Infectious Diseases Progress Note Today's Date: 09/07/2017 Admission Date: 08/31/2017 Reason for this consultation: Positive AFB from mass biopsy at OSH. History of OLT in 2012 Consult Type: Co-Management w/Signed Orders Assessment: Lung mass with JERED growth on culture Adenocarcinoma of the lung - 2 months ago the patient was hospitalized at an outside facility for pneumonia. During that hospitalization he underwent bronchoscopy and biopsies were taken of the mass (08/13). This mass showed adenocarcinoma. -08/13 mass bx also had AFB culture sent. + on 08/30. ID was contacted on 08/31 for advice and reportedly recommended admission. -On admission he felt generally unchanged, he did have significant weakness and lost 30 pounds over the prior 10 weeks. He did have a dry cough without any hemoptysis. He had not been incarcerated or had significant travel (only intl was decades ago to [place] and [place]) or TB exposure. -3 AFB sputum cultures were ordered, is placed on airborne precautions, no antibiotics were started and ID was consulted. -No leukocytosis, afebrile. -Regarding the culture that was positive from the mass this was + on 08/30 and sent for ID to the state lab. 09/04 confirmed JERED, requested susceptibilities be sent, discussed with lab employee Monalisa Mccrary, sent to [facility] Possible secondary bacterial pneumonia -Decompensated overnight 09/03-, possible aspiration broad abx with Vanc and Pip /tazo -09/06 BAL with hyperdynamic airways with slight erythema noted; WBC 440, gm stain nos, cultures pending. Biopsies also sent. CKD COPD ESRD on HD ESLD s/p OLT in 2012 on everolimus and tacrolimus DM H/O Joint replacement Recommendations: -AFB smears negative x 3, cx's pending -Previous lung mass biopsy AFB cx grew JERED. ID requested susceptibilities be sent, discussed with lab employee Monalisa Mccrary on 09/04/17, sent to [facility] for susceptibilities -Unclear need for treatment vs monitoring. Will discuss potential treatment options as outpatient. JERED not the cause of current symptoms. -Continue empiric pip/tazo for now pending further culture results. No evidence of MRSA to date, low suspicion, so ok to discontinue IV Vancomycin. -plan for 7-10 day course of pip/tazo starting from 09/04/17 -Will follow bacterial and AFB cultures from BAL 09/06 -Watch for antimicrobial toxicities -Will follow Thank you for this consult. Patient to be discussed with Dr. Lynn. Faith Redd MD Infectious Disease Fellow Pager: [phone] I have seen, personally evaluated, and discussed the patient's care with Dr. Redd, Infectious Diseases Fellow. I agree with the subjective notations, objective findings and agree with the plan of care as documented in this note with edits made by me as necessary. Conner Lynn MD [employer] Division of Infectious Diseases Dr. Rosales will round on Sunday. For any questions over the weekend please page the ID fellow recreational therapy aide at [phone] History of Present Illness This is a 76-year-old man with a history of liver transplant in 2012 with disease (Suarez plus alcoholic cirrhosis) on everolimus plus tacrolimus for immunosuppression. He also has a history of end-stage renal disease on hemodialysis and diabetes mellitus.Recent dx of lung adenocarcinoma. The lung mass bx subsequently is growing an AFB, ID and S pattern pending. 3 negative AFB smears, cx pending. 09/04/17 Tunneled non-cuffed right IJ central venous catheter placement S/p bronch with BAL on 09/06, WBC 440, cell too degenerated to perform diff, gm stain no organisms, cultures in process, Biopsies also obtained for path/ cytology. Did ok overnight, slept well. No sore throat today. No leukocytosis, afebrile. Oxygen requirement down to 4L Denies dyspnea, still has intermittent cough, unable to fully cough up secretions. No f/c/diaphoresis, no rash, no abd pain, no MCKENZIE. Antimicrobial Start date End date Pip/tazo 09/04/17 active Vancomycin 09/04/17 09/07/17 Estimated Creatinine Clearance: 11.6 mL/min (A) (based on SCr of 7.25 mg/dL (H)) . Review of Systems Full 10 system ROS completed and negative unless otherwise noted above. Medications Scheduled Meds: albuterol 0.5% (PROVENTIL; VENTOLIN) nebulizer solution 2.5 mg 2.5 mg Inhalation BID & PRN amLODIPine (NORVASC) tablet 10 mg 10 mg Oral QDAY aspirin chewable tablet 81 mg 81 mg Oral QDAY atorvastatin (LIPITOR) tablet 10 mg 10 mg Oral QDAY doxazosin (CARDURA) tablet 2 mg 2 mg Oral QDAY escitalopram oxalate (LEXAPRO) tablet 10 mg 10 mg Oral QDAY everolimus (immunosuppressive) (ZORTRESS) tablet 1 mg 1 mg Oral BID heparin (porcine) BOLUS for continuous inf (bag) 1,830-3,660 Units 20-40 Units/ kg Intravenous As Prescribed ipratropium bromide (ATROVENT) 0.02 % nebulizer solution 0.5 mg 0.5 mg Inhalation BID & PRN oxybutynin XL (DITROPAN XL) tablet 10 mg [address] (PROTONIX) tablet 40 mg 40 mg Oral QDAY(21) piperacillin/tazobactam (ZOSYN) 2.25 g/50 mL iso-osmotic IVPB 2.25 g Intravenous Q8H* sevelamer carbonate (RENVELA) tablet 800 mg 800 mg Oral TID w/ meals tacrolimus (PROGRAF) capsule 0.5 mg 0.5 mg Oral BID Continuous Infusions: heparin (porcine) 20,000 units/D5W 500 mL infusion (std conc)(premade) 2, 047 Units/hr (09/07/17 0728) PRN and Respiratory Meds:acetaminophen Q4H PRN, ondansetron Q6H PRN, sodium chloride 0.9% (NS) IP Dialysis PRN, sodium chloride 0.9% (NS) IP Dialysis PRN, sodium chloride 0.9% (NS) IP Dialysis PRN, sodium chloride 0.9% (NS) IP Dialysis PRN Allergies Allergies Allergen Reactions Adhesive BLISTERS Skin tears Physical Examination Vital Signs: Last Vital Signs: 24 Hour Range BP: 114/49 (09/07 1136) Temp: 36.9 C (98.5 F) (09/07 1136) Pulse: 75 (09/07 1136) Respirations: 18 PER MINUTE (09/07 1136) SpO2: 92 % (09/07 1136) O2 Delivery: Nasal Cannula (09/07 1136) SpO2 Pulse: 71 (09/06 1531) BP: (91-119)/(42-53) Temp: [36.7 C (98 F)-37.3 C (99.1 F)] Pulse: [69-86] Respirations: [14 PER MINUTE-22 PER MINUTE] SpO2: [90 %-99 %] O2 Delivery: Nasal Cannula General: alert, oriented x 3, in NAD HENT: normocephalic, atraumatic, oropharynx clear Eyes: EOM grossly intact, Conj nl Neck: supple, no lymphadenopathy Lungs: CTAB, no wheezing, rhonchi, rales appreciated Heart: regular rhythm, reg rate, no murmur Abdomen: soft, non-tender, non-distended, normoactive bowel sounds Ext: no edema Skin: no rashes Lines: PIV, RUE AV fistula 09/04 tunneled non cuffed RIJ 2L CVC Lab Review Hematology Recent Labs 09/05/17 1549 09/06/17 0605 09/06/17 1639 09/06/17 2252 09/07/17 0555 WBC 7.4 5.9 -- -- 5.0 HGB 7.7* 7.4* -- -- 7.3* HCT 23.7* 22.3* -- -- 21.5* PLTCT 239 242 -- -- 236 PTT 69.5* -- 27.5 53.2* 52.4* INR 1.2 1.1 -- -- 1.1 Chemistry Recent Labs 09/05/17 0300 09/06/17 0605 09/07/17 0555 NA 131* 135* 133* K 4.2 3.7 3.8 CL 94* 98 95* CO2 29 30 25 BUN 27* 17 25 CR 7.05* 5.13* 7.25* GFR 8* 11* 7* GLU 117* 109* 95 CA 10.6 10.2 10.4 ALBUMIN 3.0* -- 3.1* ALKPHOS 56 -- 58 AST 8 -- 7 ALT 6* -- 6* TOTBILI 0.5 -- 0.3 Microbiology, Radiology and other Diagnostics Review Microbiology data reviewed. 08/31/17: BC x2 NGTD Pertinent radiology images viewed. Complexity of medical decision making is high due to the multi-system nature of the infectious disease process or potential for limb-threatening infection as well as concerns including but not limited to complexity of the patient's underlying illnesses, the identification and sensitivities of the organisms being treated, the potential for antimicrobial toxicities and drug-drug interactions, concerns regarding immunologic function, and interplay of other issues. Adenocarcinoma of the lung, ESLD s/p OLT, immune suppression, ESRD on HD , lab and imaging review, summary of old records, d/w pulmonary, intensive monitoring of abx. * Dilma Ureña - 09/07/2017 12:36 PM CDT CLINICAL NUTRITION Clinical Nutrition Follow-Up Summary Nutrition Assessment of Patient: Malnutrition Assessment: Malnutrition present Malnutrition Context: ICD-10 code E43: Chronic illness/Severe malnutrition Current Oral Intake: Improving Estimated Calorie Needs: 3347-4660 kcal (25-28 kcal/kg desired wt) Estimated Protein Needs: 116 g (1.3 g/kg desired wt) Oral Diet Order: Regular Liz Hendricks is a 76 y.o. 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 At the time of biopsy, they also obtain acid-fast bacteria cultures which turned positive. Infectious disease was contacted and the patient was accepted for admission 08/31. Pt resided in [facility] facility [facility]. Pt was sleeping during attempted visits today. Noted diet liberalized to regular 09/03 given marginal PO intakes on a renal diet. Since advanced, he does appear to be eating better; mostly 100 % of meals when able (noted he was NPO all day yesterday for bronchoscopy). Will continue to monitor. Recommendation: Continue regular diet as long as K+ & phos remain WNL. Noted last phos checked ; REC adding to routine lab monitoring & resuming Renal-dialysis diet if either becomes persistently elevated Intervention / Plan: Diet liberalized to regular to encourage improved PO intakes Will continue to monitor PO intake adequacy/tolerance, GI function, wt trends, labs Nutrition Diagnosis: Nutrition Diagnosis: Inadequate energy intake Etiology: poor appetite Signs & Symptoms: pt reports eating 1 meal a day for several months; wt loss of 14% in 4 months Goals: Patient to consume >85% of meals/supplements Time Frame: Throughout Stay Status: Met;Ongoing Dilma MS Adelita, RD, LD Pager: [phone] Phone: [phone] * Shu Amado MD - 09/07/2017 9:47 AM CDT Formatting of this note may be different from the original. Pulmonary Progress Note Liz Hendricks Date of Admission: 08/31/2017 Active Problems: Liver transplanted (HCC) Immunosuppression (HCC) Acid-fast bacteria present Primary lung adenocarcinoma (HCC) ESRD (end stage renal disease) on dialysis (HCC) GERD (gastroesophageal reflux disease) Severe malnutrition (HCC) Mycobacterial infection Primary adenocarcinoma of lung (HCC) Impression/Plan: Mr. 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 Acute hypoxic respiratory failure- up to 11L, currently on 3L. Also spiked a temp to 101 on 09/03. Patient reports was vomiting episode prior to O2 needs starting- ?aspiration. - CTA shows small acute segmental PE in the lingula. Normally it is unlikely that this small PE could cause this degree of hypoxemia, however this is in one of the few areas of normal lung for him so this may account for the degree of hypoxemia we see - antibiotics per ID - given increase in consolidations in bilateral bases, concern for infectious source overlying adenocarcinoma. - bronchoscopy performed with BAL and TBBx - hyperdynamic airways with slight erythema noted 2. Adenocarcinoma of the lung- biopsy consistent with adenocarcinoma with lepidic pattern of growth - onc has requested further testing on biopsy samples including PDL1, ALK, ROS1 , EGFR - onc recommending PET CT for staging 3. AFB positive culture on lung biopsy specimin- identified as JERED - AFB sputum here negative x 3 - unlikely that infiltrates or symptoms are secondary to mycobacterium, and more likely secondary to recently diagnosed adenocarcinoma Plan: Await BAL and biopsy results. Clinically improved. Pt seen and discussed with Dr. Amado ATTESTATION Discussed with Dr. Irvin. Mr. Hendricks was unavailable on my visit. Staff name: Shu Amado MD Date: 09/07/2017 __ Subjective Liz Hendricks is a 76 y.o. male. No acute events overnight. Tolerated bronchoscopy well. Dyspnea and cough productive of clear sputum. No fever or hemoptysis after bronch. No chest pain, sob, fever/chills, no nausea/vomiting/diarrhea/constipation or edema. Objective Vital Signs: Last Filed Vital Signs: 24 Hour Range BP: 114/49 (09/07 740) Temp: 37.3 C (99.1 F) (09/07 740) Pulse: 85 (09/07 740) Respirations: 18 PER MINUTE (09/07 740) SpO2: 95 % (09/07 740) O2 Delivery: CPAP/BiPAP (Pt Owned) (09/07 740) SpO2 Pulse: 71 (09/06 1531) BP: (91-119)/(42-53) Temp: [36.7 C (98 F)-37.3 C (99.1 F)] Pulse: [69-86] Respirations: [14 PER MINUTE-22 PER MINUTE] SpO2: [90 %-99 %] O2 Delivery: CPAP/BiPAP (Pt Owned) Intake/Output Summary (Last 24 hours) at 09/07/17 0947 Last data filed at 09/07/17 0742 Gross per 24 hour Intake 1222 ml Output 0 ml Net 1222 ml PHYSICAL EXAMINATION General: Alert, cooperative, no apparent distress, appears stated age Head: Normocephalic, without obvious abnormality, atraumatic Eyes: Conjunctiva clear. Pupils equal and round, no scleral icterus Neck: Supple, symmetrical, no adenopathy Lungs: Clear to auscultation bilaterally, no rhonchi, wheezing, or rales Heart: Regular rate and rhythm, S1, S2 normal, no murmur,rub,click or gallop Abdomen: Soft, non-tender. Bowel sounds normal. No masses. No organomegaly. Extremities: Extremities normal, atraumatic, no cyanosis or edema, warm Pulses: 2+ and symmetric, all extremities Neurologic Exam Mental Status: alert and oriented x 3 LABS: Recent Labs 09/05/17 0300 09/06/17 0605 09/07/17 0555 NA 131* 135* 133* K 4.2 3.7 3.8 CL 94* 98 95* CO2 29 30 25 GAP 8 7 13* BUN 27* 17 25 CR 7.05* 5.13* 7.25* GLU 117* 109* 95 CA 10.6 10.2 10.4 ALBUMIN 3.0* -- 3.1* Recent Labs 09/04/17 2030 09/05/17 0300 09/05/17 0915 09/05/17 1549 09/06/17 0605 09/06/17 1639 09/06/17 2252 09/07/17 0555 WBC -- 7.2 -- 7.4 5.9 -- -- 5.0 HGB -- 7.9* -- 7.7* 7.4* -- -- 7.3* HCT -- 23.3* -- 23.7* 22.3* -- -- 21.5* PLTCT -- 232 -- 239 242 -- -- 236 INR -- 1.2 -- 1.2 1.1 -- -- 1.1 PTT 28.6 79.9* 62.4* 69.5* -- 27.5 53.2* 52.4* AST -- 8 -- -- -- -- -- 7 ALT -- 6* -- -- -- -- -- 6* ALKPHOS -- 56 -- -- -- -- -- 58 Estimated Creatinine Clearance: 11.6 mL/min (A) (based on SCr of 7.25 mg/dL (H)) . Vitals: 09/03/17 1430 09/05/17 0800 09/05/17 1130 Weight: 93.3 kg (205 lb 11 oz) 93.5 kg (206 lb 2.1 oz) (S) 91.5 kg (201 lb 11.5 oz) No results for input(s): PHART, PO2ART in the last 72 hours. Invalid input(s): PC02A MEDS albuterol 0.5% 2.5 mg Inhalation BID & PRN amLODIPine 10 mg Oral QDAY aspirin 81 mg Oral QDAY atorvastatin 10 mg Oral QDAY doxazosin 2 mg Oral QDAY escitalopram oxalate 10 mg Oral QDAY everolimus (immunosuppressive) 1 mg Oral BID heparin (porcine) 20-40 Units/kg Intravenous As Prescribed ipratropium bromide 0.5 mg Inhalation BID & PRN oxybutynin XL 10 mg Oral QHS pantoprazole DR 40 mg Oral QDAY(21) piperacillin/tazobactam (ZOSYN) IVPB 2.25 g Intravenous Q8H* sevelamer carbonate 800 mg Oral TID w/ meals tacrolimus 0.5 mg Oral BID vancomycin, pharmacy to manage 1 each Service Per Pharmacy vancomycin, random dosing 1 each Intravenous Random Dosing IV MEDS heparin (porcine) 20,000 units/D5W 500 mL infusion (std conc)(premade) 2, 047 Units/hr (09/07/17 0728) Prnacetaminophen Q4H PRN, ondansetron Q6H PRN, sodium chloride 0.9% (NS) IP Dialysis PRN, sodium chloride 0.9% (NS) IP Dialysis PRN, sodium chloride 0.9% ( NS) IP Dialysis PRN, sodium chloride 0.9% (NS) IP Dialysis PRN Radiology Pertinent radiology reviewed. Ebenezer SAMAYOA Pulmonary/Critical Care Pager # [phone] 09/07/2017 * Wilma Killian, RT - 09/07/2017 6:23 AM CDT Formatting of this note may be different from the original. RESPIRATORY THERAPY ADULT PROTOCOL EVALUATION RESPIRATORY PROTOCOL PLAN Medications Albuterol/Ipratropium: Neb BID;Neb PRN Note: If indicated by protocol, medication orders will be placed by therapist. Procedures PAP: Place a nursing order for "IS Q1h While Awake" for any of Lung Expansion indicators Oxygen/Humidity: O2 to keep SpO2 > 92% Monitoring: Pulse oximetry BID & PRN;Pulse oximetry continuous during night/ sleep PATIENT EVALUATION RESULTS Chart Review * Pulmonary Hx: Hx pulmonary disease, hx reactive or obstructive airway disease (PEFR & AM) OR regular home use of bronchodilators (AM) OR inhaled or systemic steroid use for lungs < or equal to 4 times/yr (AM) * Surgical Hx: No surgery OR last surgery > 6 weeks ago OR trach/stoma (BA) * Chest X-Ray: Clear OR not available * PFT/Oxygenation: FEV1, PEFR < 70% OR Pa02 < 70 RA OR Sp02 <92% RA OR Fi02 > 0.21 to keep Sp02 > 92% OR < 24 hours post-op (02 & oxim) OR chronic C02 retention (C02) Patient Assessment * Respiratory Pattern: Regular pattern and rate OR good chest excursion with deep breathing * Breath Sounds: Clear apically, but diminished in bases (LE) OR CHF related crackles (02) (oximetry) * Cough / Sputum: Strong, effective cough OR nonproductive * Mental Status: Alert, oriented, cooperative * Activity Level: Ambulatory with assistance Priority Index Total Points: 7 Points * Priority Index: 1+ PRIORITY INDEX GUIDELINES* Priority Points 1 0-9 points 2 9-18 points 3 > 18 points + Pulm Dx or Home Rx *Higher points indicate higher acuity. Therapist: Wilma Killian, RT Date: 09/07/2017 Yeh AC=Airway clearance AM=Aerosolized medication BA=[place] aerosol DB&C=Deep breathe & cough FEV1=Forced expiratory volume in first second) IC=Inspiratory capacity LE=Lung expansion MDI=Metered dose inhaler Neb=Nebulizer O2=Oxygen Oxim=Oximetry PEFR=Peak expiratory flow rate [employer] AS[employer]ER=Rapid Response Team * Lester Agarwal RN - 09/06/2017 5:23 PM CDT I have reviewed the notes, assessments, and/or procedures performed by SN Eulalia and concur with her/his documentation unless otherwise noted. * Lucina Estrada RN - 09/06/2017 3:42 PM CDT EGD/Upper EUS/ERCP/Antegrade Enteroscopy Post Upper Endoscopy Instructions -You may have a sore throat after the procedure for 2-3 days. Try sucrets or lozenges to help ease the pain. If it continues please contact us. -If you feel feverish, have a temperature of 101 degrees or higher, persistent nausea and vomiting, abdominal pain or dark stools; please notify your nurse or GI physician. -You may have abdominal cramping following the procedure this can be relieved by belching or passing air. -If you have redness or swelling at the IV site, place a warm, wet washcloth over the affected areas for 15 minutes, 3-4 times a day until the redness subsides. If symptoms continue for 2-3 days, contact your regular physician. - If you have bleeding from your mouth, over 2 tablespoons and increasing, please notify your physician. A small amount of bleeding is normal if a biopsy or polyps were taken. If you are vomiting blood you need to seek immediate medical attention. - You may resume all your routine medications, if medications need to be held your physician and/or nurse will notify you post procedure. SPECIFIC INSTRUCTIONS INPATIENTS: Ask for help when you get up in your room, as you may still be drowsy from your sedation. * Faith Jordan DO - 09/06/2017 3:08 PM CDT Formatting of this note may be different from the original. General Progress Note Name: Liz Hendricks Today's Date: 09/06/2017 Admission Date: 08/31/2017 LOS: 6 days Assessment/Plan: Active Problems: Liver transplanted (HCC) Immunosuppression (HCC) Acid-fast bacteria present Primary lung adenocarcinoma (HCC) ESRD (end stage renal disease) on dialysis (HCC) GERD (gastroesophageal reflux disease) Severe malnutrition (HCC) Mycobacterial infection Primary adenocarcinoma of lung (HCC) Liz Hendricks is a 76 y.o. 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 Acute hypoxemic respiratory failure- improving -S/p rapid response this am -AB.51, pCO2 38, pO2 55 on 4 Lpm -spO2 at 81% and bumped to 11 LPM of O2 -Well's score of 8, D-dimer 1289 -Patient satting well on 3 LMP after this episode -CXR appears mildly improved from previous -CTA with small PE in lingula, consolidation present, possible pneumonia vs malignancy PLAN >Pulmonology following, appreciate recs >Plan for bronchoscopy today >Empiric abx with vancomycin and zosyn >Plan for regular HD after CTA Positive acid-fast bacteria culture Assessment Unclear significance at this point, it is certainly possible that this is only a MAC infection. - The patient is quite immunocompromised secondary to his immunosuppression for orthotopic liver transplant. - He does not have any risk factors for tuberculosis. - Symptomatically, the patient is relatively unchanged over the past several months since he was hospitalized for the pneumonia. Nevertheless, will be important to rule out active tuberculosis and further workup this finding. Plan Acid-fast bacteria sputum 3 negative--will remove isolation precautions Infectious disease consulted, appreciate recs: Suspect NTM rather than TB. --Pulmonary consult for assistance with bronchoscopy History of orthotopic liver transplant Orthotopic liver transplant in 2012. --He has been immunosuppressed with tacrolimus and everolimus. This has been complicated by biliary stricture requiring stent. He follows with Dr. Regan Brock of our hepatology department here. Plan: Hepatology consulted, appreciate recs: Will adjust dosages of immunosuppressants based on levels. . >tacrolimus (goal ~3) and everolimus (goal ~5) levels Adenocarcinoma - Bronchoscopy and biopsies were taken at OSH on 08/13; biopsies revealed adenocarcinoma - Patient has not initiated treatment - Patient planned to establish with [facility] this week but has been hospitalized Plan: - Consult medical oncology - Consult pulmonology, as above >Repeat bronchoscopy today History of end-stage renal disease (secondary to immunosuppression) on Sunday, , Sunday dialysis Nephrology consulted, appreciate recs: Patient to continue his TTS dialysis schedule. Continue sevelamer 800 mg TID with meals for hyperphosphatemia. Check iron studies. Continue TRAFFIC OPERATOR phosphate binder Hypertension Continue TRAFFIC OPERATOR amlodipine and Cardura History of GERD Continue TRAFFIC OPERATOR pantoprazole FEN: Renal dialysis diet PPx: Heparin Code Status: DNAR-FI Disposition: Continue admission to inpatient internal medicine under care of the Med 2 team. Patient seen and discussed with Dr. Wilson. Faith Jordan, DO PGY-1 Subjective Liz Hendricks is a 76 y.o. male. Overnight, no acute events. He is sleeping with CPAP on. His reports he had a good night. He denies fever, chills, chest pain, abdominal pain, constipation, diarrhea, changes in urination, extremity edema. Medications Scheduled Meds: [MAR Hold] albuterol 0.5% (PROVENTIL; VENTOLIN) nebulizer solution 2.5 mg 2.5 mg Inhalation BID & PRN [MAR Hold] amLODIPine (NORVASC) tablet 10 mg 10 mg Oral QDAY [Jul] aspirin chewable tablet 81 mg 81 mg Oral QDAY [Jul] atorvastatin (LIPITOR) tablet 10 mg 10 mg Oral QDAY [Jul] doxazosin (CARDURA) tablet 2 mg 2 mg Oral QDAY [JUL Hold] escitalopram oxalate (LEXAPRO) tablet 10 mg 10 mg Oral QDAY [JUL Hold] everolimus (immunosuppressive) (ZORTRESS) tablet 1 mg 1 mg Oral BID [Jul] ipratropium bromide (ATROVENT) 0.02 % nebulizer solution 0.5 mg 0.5 mg Inhalation BID & PRN [Jul] oxybutynin XL (DITROPAN XL) tablet 10 mg 10 mg Oral QHS [Jul] pantoprazole DR (PROTONIX) tablet 40 mg 40 mg Oral QDAY(21) piperacillin/tazobactam (ZOSYN) 2.25 g/50 mL iso-osmotic IVPB 2.25 g Intravenous Q8H* [Jul] sevelamer carbonate (RENVELA) tablet 800 mg 800 mg Oral TID w/ meals [Jul] tacrolimus (PROGRAF) capsule 0.5 mg 0.5 mg Oral BID vancomycin, pharmacy to manage 1 each Service Per Pharmacy vancomycin, random dosing 1 each Intravenous Random Dosing Continuous Infusions: PRN and Respiratory Meds: Review of Systems: Constitutional: Denies fever and chills. Respiratory: Endorses shortness of breath with exertion and cough. Denies shortness of breath at rest. Objective: Vital Signs: Last Filed Vital Signs: 24 Hour Range BP: 112/51 (09/06 1403) Temp: 36.7 C (98.1 F) (09/06 1403) Pulse: 80 (09/06 1403) Respirations: 17 PER MINUTE (09/06 1403) SpO2: 91 % (09/06 1403) O2 Delivery: Nasal Cannula (09/06 1403) BP: (112-133)/(49-57) Temp: [36.7 C (98.1 F)-37.2 C (99 F)] Pulse: [78-84] Respirations: [16 PER MINUTE-19 PER MINUTE] SpO2: [91 %-98 %] O2 Delivery: Nasal Cannula Vitals: 09/03/17 1430 09/05/17 0800 09/05/17 1130 Weight: 93.3 kg (205 lb 11 oz) 93.5 kg (206 lb 2.1 oz) (S) 91.5 kg (201 lb 11.5 oz) Intake/Output Summary: (Last 24 hours) Intake/Output Summary (Last 24 hours) at 09/06/17 1508 Last data filed at 09/06/17 1455 Gross per 24 hour Intake 1560 ml Output 0 ml Net 1560 ml Stool Occurrence: 1 Physical Exam General: Alert, cooperative, elderly male, lying in bed in no apparent distress. HEENT: Atraumatic, normocephalic. Heart: Regular rate and rhythm without murmur. Lungs: Clear to auscultation bilaterally without wheeze, rhonchi, or rales. Abdomen: Soft, non-distended. Bowel sounds auscultated throughout. Non-tender to palpation. No masses or organomegaly. Extremities: No clubbing, cyanosis, or edema. Lab Review 24-hour labs: Results for orders placed or performed during the hospital encounter of (from the past 24 hour(s)) CBC AND DIFF Collection Time: 09/05/17 3:49 PM Result Value Ref Range White Blood Cells 7.4 [...] Basophil Count 0.00 0 - 0.20 K/UL PROTIME INR (PT) Collection Time: 09/05/17 3:49 PM Result Value Ref Range INR 1.2 0.8 - 1.2 TYPE & CROSSMATCH Collection Time: 09/05/17 3:49 PM Result Value Ref Range Units Ordered 0 Crossmatch Expires 09/08/2017 Record Check FOUND ABO/RH(D) O NEG Antibody Screen NEG Electronic Crossmatch YES VANCOMYCIN RANDOM Collection Time: 09/05/17 3:49 PM Result Value Ref Range Vancomycin Random 11.6 MCG/ML PTT (APTT) Collection Time: 09/05/17 3:49 PM Result Value Ref Range APTT 69.5 (H) 21.0 - 39.0 SEC PROTIME INR (PT) Collection Time: 09/06/17 6:05 AM Result Value Ref Range INR 1.1 0.8 - 1.2 BASIC METABOLIC PANEL Collection Time: 09/06/17 6:05 AM Result Value Ref Range Sodium 135 (L) 137 - 147 MMOL/L Potassium 3.7 3.5 - 5.1 MMOL/L Chloride 98 98 - 110 MMOL/L CO2 30 21 - 30 MMOL/L Anion Gap 7 3 - 12 Glucose 109 (H) 70 - 100 MG/DL Blood Urea Nitrogen 17 7 - 25 MG/DL Creatinine 5.13 (H) 0.4 - 1.24 MG/DL Calcium 10.2 8.5 - 10.6 MG/DL eGFR Non 11 (L) >60 mL/min eGFR 13 (L) >60 mL/min CBC Collection Time: 09/06/17 6:05 AM Result Value Ref Range White Blood Cells 5.9 4.5 - 11.0 K/UL RBC 2.93 (L) 4.4 - 5.5 M/UL Hemoglobin 7.4 (L) 13.5 - 16.5 GM/DL Hematocrit 22.3 (L) 40 - 50 % MCV 76.2 (L) 80 - 100 FL MCH 25.1 (L) 26 - 34 PG MCHC 32.9 32.0 - 36.0 G/DL RDW 20.3 (H) 11 - 15 % Platelet Count 242 150 - 400 K/UL MPV 6.9 (L) 7 - 11 FL TACROLIMUS LEVEL(FK506) Collection Time: 09/06/17 8:28 AM Result Value Ref Range Tacrolimus 2.9 2 - 15 NG/ML EVEROLIMUS BLOOD Collection Time: 09/06/17 8:28 AM Result Value Ref Range Everolimus 4.0 3 - 10 ng/mL Point of Care Testing (Last 24 hours) Glucose: (!) 109 (09/06/17 0605) Radiology and other Diagnostics Review: Pertinent radiology reviewed. Associated attestation - Ari Wilson MD - 09/06/2017 6:06 PM CDT Formatting of this note may be different from the original. ATTESTATION I personally interviewed and examined the patient, performed the yeh portions of the E/M visit, discussed case with resident and concur with resident documentation of history, physical exam, assessment, and treatment plan unless otherwise noted. Staff name: Ari Wilson MD Date: 09/06/2017 * Lester Agarwal RN - 09/06/2017 1:12 PM CDT 1312: Pt to GI via cart with transport. 1612: Pt back on unit * Laron Aguilar PT - 09/06/2017 10:43 AM CDT PHYSICAL THERAPY ASSESSMENT MOBILITY: Mobility Progressive Mobility Level: Sit on edge of bed Distance Walked (feet): (to bathroom and back prior with nursing) Level of Assistance: Assist X1 Assistive Device: Walker Time Tolerated: 11-30 minutes Activity Limited By: Patient request to stop SUBJECTIVE: Subjective Significant hospital events: recently diagnosed adenocarcinoma of the lung. Planned to establish with Dr. Ventura on 09/03/17 but is now hospitalized for tuberculosis rule-out (ruled out), pt continues with high O2 demand Mental / Cognitive Status: Alert;Oriented;To Person;To Place;To Situation Persons Present: Spouse;Physician;Student Pain: Patient has no complaint of pain Comments: Pt on 4.5 LO2 via NC, supine SPO 92%, sitting SPO2 98% Ambulation Assist: Independent Mobility in Community with Endurance Limitations; Independent Mobility in Community with Device Patient Owned Equipment: Single Point Cane;Roller Walker Home Situation: Lives with Family () Type of Home: House Entry Stairs: 1-2 Stairs (platform steps (mult)) In-Home Stairs: Able to Live on One Level Comments: Pt reports he was assisting with meals prior to recent decline in function (prior to May when he was admitted to Hospital in [place]). Pt stated recently he was using SPC (vs RW). Pt admitted from facility. ROM: ROM ROM Comments: Pt demonstrated decreased AROM at his hips, likely limited by strength. 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 , no difference L from R sensation, general decreased at S1/S2 BED MOBILITY/TRANSFERS: Bed Mobility/Transfers Bed Mobility: Rolling: Minimal Assist Bed Mobility: Supine to Sit: Minimal Assist;Assist with Trunk;Head of Bed Elevated Bed Mobility: Sit to Supine: Standby Assist;HOB Elevated Comments: Pt agreeable to sit edge of bed for assessment, unagreaable to standing, nursing reports pt ambulated to bathroom, with increased O2 demands BALANCE: Balance Sitting Balance: Dynamic Sitting Balance;1 UE Support;Standby Assist GAIT: Gait Comments: Pt declines out of bed ambulation ACTIVITY/EXERCISE: Activity / Exercise Sit Edge Of Bed: 15 minutes Sit Edge Of Bed Assist: Stand By Assist EDUCATION: Education Persons Educated: Patient/Family Patient Barriers To Learning: None Noted Teaching Methods: Verbal Instruction;Demonstration Patient Response: Verbalized Understanding;Return Demonstration Topics: Plan/Goals of PT Interventions;Use of Assistive Device/Orthosis; Mobility Progression;Importance of Increasing Activity;Recommend Continued Therapy;Therapy Schedule ASSESSMENT/PROGRESS: Assessment/Progress Impaired Mobility Due To: Decreased Strength;Decreased Activity Tolerance; Medical Status Limitation Impaired Strength Due To: Decreased Activity Tolerance;Medical Status Limitation Assessment/Progress: Expect Slow Progress AM-PAC 6 Clicks Basic Mobility Inpatient Turning from your back to your side while in a flat bed without using bed rails : A Little Moving from lying on your back to sitting on the side of a flatbed without using bedrails : A Little Moving to and from a bed to a chair (including a wheelchair): A Little Standing up from a chair using your arms (e.g. wheelchair, or bedside chair): A Little To walk in hospital room: A Little Climbing 3-5 steps with a railing: Total Raw Score: 16 Standardized (T-scale) Score: 38.32 Basic Mobility CMS 0-100%: 47.12 CMS G Code Modifier for Basic Mobility: CK G-Codes: Mobility G8978 Current Status: 40-59% Impairment G8979 Goal Status: 20-39% Impairment Based on above evaluation and clinical judgment. GOALS: Goals Goal Formulation: With Patient/Family Time For Goal Achievement: 7 days Pt Will Go Supine To/From Sit: Independently Pt Will Transfer Bed/Chair: w/ Stand By Assist Pt Will Ambulate: 51-100 Feet, w/ Walker, w/ Stand By Assist Pt Will Go Up / Down Stairs: 1-2 Stairs, w/ Stand By Assist (platform with walker) PLAN: Plan Treatment Interventions: Mobility Training;Balance Activities;Endurance Training ;Strengthening Plan Frequency: 5 Days per Week Comments: Progress ambulation as O2 demands allow, assisted goal stairs, follow up post-op/biopsy RECOMMENDATIONS: PT Discharge Recommendations PT Discharge Recommendations: Home with Assistance;and;Home Health Setting VS inpatient setting, back to facility. Equipment Recommendations: Too early to be determined Comments: PT anticipates pt with good recovery following medical status limitations, PT to continue to update discharge recommendations. Pt currently limited by high O2 demands ADDEND: Daughter clarifies pt's prior level of function, pt ambulating at facility with roller walker up to 150', pt with s/s orthostatics vs SPO2 drop. unable to provide physical assist at home. Pt could require rollator/4WW at discharge, PT will continue to assess, likely next level of care to follow up. Therapist: Laron Aguilar, PT DPT [id number] Date: 09/06/2017 * Conner Lynn MD - 09/06/2017 8:25 AM CDT Formatting of this note may be different from the original. Infectious Diseases Progress note Today's Date: 09/06/2017 Admission Date: 08/31/2017 Reason for this consultation: Positive AFB from mass biopsy at OSH. History of OLT in 2013 Consult Type: Co-Management w/Signed Orders Assessment: Lung mass with JERED growth on culture Adenocarcinoma of the lung - 2 months ago the patient was hospitalized at an outside facility for pneumonia. During that hospitalization he underwent bronchoscopy and biopsies were taken of the mass (08/13). This mass showed adenocarcinoma. -08/13 mass bx also had AFB culture sent. + on 08/30. ID was contacted on 08/31 for advice and reportedly recommended admission. -On admission he felt generally unchanged, he did have significant weakness and lost 30 pounds over the prior 10 weeks. He did have a dry cough without any hemoptysis. He had not been incarcerated or had significant travel (only intl was decades ago to [place] and [place]) or TB exposure. -3 AFB sputum cultures were ordered, is placed on airborne precautions, no antibiotics were started and ID was consulted. -No leukocytosis, afebrile. -Regarding the culture that was positive from the mass this was + on 08/30 and sent for ID to the state lab. 09/04 confirmed JERED, requested susceptibilities be sent, discussed with lab employee Monalisa Mccrary Possible secondary bacterial pneumonia -Decompensated overnight 09/03-, broad abx -BAL planned CKD COPD ESRD on HD ESLD s/p OLT in 2012 on everolimus and tacrolimus DM H/O Joint replacement Recommendations: -AFB smears negative x 3, cx's pending -Previous lung mass biopsy AFB cx grew JERED. ID requested susceptibilities be sent, discussed with lab employee Monalisa Mccrary on 09/04/17, plan to send to [facility] -Unclear need for treatment vs monitoring. Will discuss potential treatment options as outpatient. JERED not the cause of current symptoms. -Continue vanc + pip/tazo for now pending further w/u. Pulmonary planning for bronchoscopy, today, agree. -Will follow bacterial and AFB cultures to be obtained with BAL planned 09/06 -Watch for antimicrobial toxicities -Will follow Thank you for this consult. Patient discussed with Dr. Lynn. Faith Redd MD Infectious Disease Fellow Pager: [phone] I have seen, personally evaluated, and discussed the patient's care with Dr. Redd, Infectious Diseases Fellow. I agree with the subjective notations, objective findings and agree with the plan of care as documented in this note with edits made by me as necessary. Conner Lynn MD [employer] Division of Infectious Diseases D/w Pulmonary History of Present Illness This is a 76-year-old man with a history of liver transplant in 2013 with disease (Suarez plus alcoholic cirrhosis) on everolimus plus tacrolimus for immunosuppression. He also has a history of end-stage renal disease on hemodialysis and diabetes mellitus.Recent dx of lung adenocarcinoma. The lung mass bx subsequently is growing an AFB, ID and S pattern pending. 3 negative AFB smears, cx pending. 09/04/17 Tunneled non-cuffed right IJ central venous catheter placement Did ok overnight, slept well. No leukocytosis, afebrile. Requiring 8L supplemental oxygen still. Denies dyspnea, minimal cough, unable to fully cough up secretions. No f/c/diaphoresis, no rash, no abd pain, no MCKENZIE. Antimicrobial Start date End date Pip/tazo 09/04/17 Vancomycin 09/04/17 Estimated Creatinine Clearance: 11.9 mL/min (A) (based on SCr of 7.05 mg/dL (H)) . Review of Systems Full 10 system ROS completed and negative unless otherwise noted above. Medications Scheduled Meds: albuterol 0.5% (PROVENTIL; VENTOLIN) nebulizer solution 2.5 mg 2.5 mg Inhalation BID & PRN amLODIPine (NORVASC) tablet 10 mg 10 mg Oral QDAY aspirin chewable tablet 81 mg 81 mg Oral QDAY atorvastatin (LIPITOR) tablet 10 mg 10 mg Oral QDAY doxazosin (CARDURA) tablet 2 mg 2 mg Oral QDAY escitalopram oxalate (LEXAPRO) tablet 10 mg 10 mg Oral QDAY everolimus (immunosuppressive) (ZORTRESS) tablet 1 mg 1 mg Oral BID ipratropium bromide (ATROVENT) 0.02 % nebulizer solution 0.5 mg 0.5 mg Inhalation BID & PRN oxybutynin XL (DITROPAN XL) tablet 10 mg [address] (PROTONIX) tablet 40 mg 40 mg Oral QDAY(21) piperacillin/tazobactam (ZOSYN) 2.25 g/50 mL iso-osmotic IVPB 2.25 g Intravenous Q8H* sevelamer carbonate (RENVELA) tablet 800 mg 800 mg Oral TID w/ meals tacrolimus (PROGRAF) capsule 0.5 mg 0.5 mg Oral BID vancomycin, pharmacy to manage 1 each Service Per Pharmacy vancomycin, random dosing 1 each Intravenous Random Dosing Continuous Infusions: PRN and Respiratory Meds:acetaminophen Q4H PRN, ondansetron Q6H PRN, sodium chloride 0.9% (NS) IP Dialysis PRN, sodium chloride 0.9% (NS) IP Dialysis PRN, sodium chloride 0.9% (NS) IP Dialysis PRN Allergies Allergies Allergen Reactions Adhesive BLISTERS Skin tears Physical Examination Vital Signs: Last Vital Signs: 24 Hour Range BP: 133/57 (09/06 333) Temp: 37 C (98.6 F) (09/06 333) Pulse: 81 (09/06 0607) Respirations: 18 PER MINUTE (09/06 333) SpO2: 92 % (09/06 744) O2 Delivery: CPAP/BiPAP (Pt Owned) (09/06 744) SpO2 Pulse: 72 (09/05 1200) BP: (94-133)/(40-71) Temp: [36.9 C (98.4 F)-37.2 C (98.9 F)] Pulse: [72-84] Respirations: [17 PER MINUTE-21 PER MINUTE] SpO2: [91 %-99 %] O2 Delivery: CPAP/BiPAP (Pt Owned) General: alert, oriented x 3, in NAD HENT: normocephalic, atraumatic, oropharynx clear Eyes: EOM grossly intact, Conj nl Neck: supple, no lymphadenopathy Lungs: CTAB, no wheezing, rhonchi, rales appreciated Heart: regular rhythm, reg rate, no murmur, rub, gallop Abdomen: soft, non-tender, non-distended, normoactive bowel sounds, Ext: no edema Skin: no rashes Lines: PIV, RUE AV fistula 09/04 tunneled non cuffed RIJ 2L CVC Lab Review Hematology Recent Labs 09/04/17 0535 09/05/17 0300 09/05/17 0915 09/05/17 1549 09/06/17 0605 WBC 7.3 -- 7.2 -- 7.4 -- HGB 9.2* -- 7.9* -- 7.7* -- HCT 27.3* -- 23.3* -- 23.7* -- PLTCT 245 -- 232 -- 239 -- PTT 28.1 < > 79.9* 62.4* 69.5* -- INR 1.1 -- 1.2 -- 1.2 1.1 < >=values in this interval not displayed. Chemistry Recent Labs 09/03/17 0945 09/04/17 0535 09/05/17 0300 NA 137 141 131* K 3.7 4.6 4.2 CL 99 103 94* CO2 27 28 29 BUN 27* 16 27* CR 8.17* 5.05* 7.05* GFR 6* 11* 8* GLU 140* 107* 117* CA 10.8* 11.1* 10.6 PO4 -- 3.5 -- ALBUMIN 3.1* 3.6 3.0* ALKPHOS 55 60 56 AST 10 11 8 ALT 7 6* 6* TOTBILI 0.3 0.4 0.5 Microbiology, Radiology and other Diagnostics Review Microbiology data reviewed. 08/31/17: BC x2 NGTD Pertinent radiology images viewed. Complexity of medical decision making is high due to the multi-system nature of the infectious disease process or potential for limb-threatening infection as well as concerns including but not limited to complexity of the patient's underlying illnesses, the identification and sensitivities of the organisms being treated, the potential for antimicrobial toxicities and drug-drug interactions, concerns regarding immunologic function, and interplay of other issues. Adenocarcinoma of the lung, ESLD s/p OLT, immune suppression, ESRD on HD , lab and imaging review, summary of old records, d/w pulmonary, intensive monitoring of abx. * Essence Palma, PHARMD - 09/05/2017 6:19 PM CDT Formatting of this note may be different from the original. Pharmacy Vancomycin Note Subjective: Liz Hendricks is a 76 y.o. male being treated for Fever, hypoxia. Objective: Current Vancomycin Orders Medication Dose Route Frequency vancomycin (VANCOCIN) 1,000 mg in D5W 200mL IVPB (premade) 1 g Intravenous ONCE vancomycin, pharmacy to manage 1 each Service Per Pharmacy vancomycin, random dosing 1 each Intravenous Random Dosing Day of Vancomycin therapy: 2 Estimated CrCl: HD Drug Levels: Vancomycin Random Date/Time Value Ref Range Status 09/05/2017 1549 11.6 MCG/ML Final Assessment: Target levels for this patient: Trough < 20 . Evaluation of level(s): level drawn 4 hours post HD Plan: 1. Will redose with 1000 mg x1 tonight. May need to reduce dose in future 2. Next scheduled level(s): per floor pharmacist with next Hd 3. Pharmacy will continue to monitor and adjust therapy as needed. Essence Palma, PHARMD 09/05/2017 Pager [phone] * Omer Alvarado MD - 09/05/2017 2:22 PM CDT I have seen and examined the patient on HD today. Pt w/o new complaints at this time. Pt found to have a PE and was started on a heparin gtt. On exam, pt alert and in NAD, lungs CTA, heart RR, trace edema. RUE AVF w/ good blood flow. BP and lytes stable. Plan on 2 liters of UF today as BP tolerates. Recommendation: Please max concentration heparin gtt to avoid excess volume administration * Faith Jordan DO - 09/05/2017 2:03 PM CDT Formatting of this note may be different from the original. General Progress Note Name: Liz Hendricks Today's Date: 09/05/2017 Admission Date: 08/31/2017 LOS: 5 days Assessment/Plan: Active Problems: Liver transplanted (HCC) Immunosuppression (HCC) Acid-fast bacteria present Primary lung adenocarcinoma (HCC) ESRD (end stage renal disease) on dialysis (HCC) GERD (gastroesophageal reflux disease) Severe malnutrition (HCC) Mycobacterial infection Primary adenocarcinoma of lung (HCC) Liz Hendricks is a 76 y.o. 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 Acute hypoxemic respiratory failure- improving -S/p rapid response this am -AB.51, pCO2 38, pO2 55 on 4 Lpm -spO2 at 81% and bumped to 11 LPM of O2 -Well's score of 8, D-dimer 1289 -Patient satting well on 3 LMP after this episode -CXR appears mildly improved from previous -CTA with small PE in lingula, consolidation present, possible pneumonia vs malignancy PLAN >Pulmonology following, appreciate recs >Plan for bronchoscopy tomorrow. >Empiric abx with vancomycin and zosyn >Plan for regular HD after CTA Positive acid-fast bacteria culture Assessment Unclear significance at this point, it is certainly possible that this is only a MAC infection. - The patient is quite immunocompromised secondary to his immunosuppression for orthotopic liver transplant. - He does not have any risk factors for tuberculosis. - Symptomatically, the patient is relatively unchanged over the past several months since he was hospitalized for the pneumonia. Nevertheless, will be important to rule out active tuberculosis and further workup this finding. Plan Acid-fast bacteria sputum 3 negative--will remove isolation precautions Hold on empiric antibiotics at this time Infectious disease consulted, appreciate recs: Suspect NTM rather than TB. --Pulmonary consult for assistance with Mycobacterium management History of orthotopic liver transplant Orthotopic liver transplant in 2012. --He has been immunosuppressed with tacrolimus and everolimus. This has been complicated by biliary stricture requiring stent. He follows with Dr. Regan Brock of our hepatology department here. Plan: Obtain daily tacrolimus (goal ~3) and everolimus (goal ~5) levels; decrease tacrolimus to 0.5 mg BID and everolimus to 1 mg BID Hepatology consulted, appreciate recs: Will adjust dosages of immunosuppressants based on levels. Daily INR. Adenocarcinoma - Bronchoscopy and biopsies were taken at OSH on 08/13; biopsies revealed adenocarcinoma - Patient has not initiated treatment - Patient planned to establish with [facility] this week but has been hospitalized Plan: - Consult medical oncology - Consult pulmonology, as above History of end-stage renal disease (secondary to immunosuppression) on Sunday, , Sunday dialysis Nephrology consulted, appreciate recs: Patient to continue his TTS dialysis schedule. Continue sevelamer 800 mg TID with meals for hyperphosphatemia. Check iron studies. Continue TRAFFIC OPERATOR phosphate binder Hypertension Continue TRAFFIC OPERATOR amlodipine and Cardura History of GERD Continue TRAFFIC OPERATOR pantoprazole FEN: Renal dialysis diet PPx: Heparin Code Status: DNAR-FI Disposition: Continue admission to inpatient internal medicine under care of the Med 2 team. Patient seen and discussed with Dr. Wilson. Faith Jordan, DO PGY-1 Subjective Liz Hendricks is a 76 y.o. male. Overnight, patient had a decrease in O2 saturation while sleeping on CPAP. His O2 was turned up to 8 Lpm. Patient is in dialysis this morning. He is pleasantly confused. He does not remember the events overnight. He reports fatigue. He denies fever, chills, chest pain, abdominal pain, constipation, diarrhea, changes in urination, extremity edema. Medications Scheduled Meds: albuterol 0.5% (PROVENTIL; VENTOLIN) nebulizer solution 2.5 mg 2.5 mg Inhalation BID & PRN amLODIPine (NORVASC) tablet 10 mg 10 mg Oral QDAY aspirin chewable tablet 81 mg 81 mg Oral QDAY atorvastatin (LIPITOR) tablet 10 mg 10 mg Oral QDAY doxazosin (CARDURA) tablet 2 mg 2 mg Oral QDAY escitalopram oxalate (LEXAPRO) tablet 10 mg 10 mg Oral QDAY everolimus (immunosuppressive) (ZORTRESS) tablet 1 mg 1 mg Oral BID heparin (porcine) injection 1,870-3,730 Units 20-40 Units/kg Intravenous As Prescribed ipratropium bromide (ATROVENT) 0.02 % nebulizer solution 0.5 mg 0.5 mg Inhalation BID & PRN oxybutynin XL (DITROPAN XL) tablet 10 mg [address] (PROTONIX) tablet 40 mg 40 mg Oral QDAY(21) piperacillin/tazobactam (ZOSYN) 2.25 g/50 mL iso-osmotic IVPB 2.25 g Intravenous Q8H* sevelamer carbonate (RENVELA) tablet 800 mg 800 mg Oral TID w/ meals tacrolimus (PROGRAF) capsule 0.5 mg 0.5 mg Oral BID vancomycin, pharmacy to manage 1 each Service Per Pharmacy vancomycin, random dosing 1 each Intravenous Random Dosing Continuous Infusions: heparin (porcine) 20,000 units/D5W 500 mL infusion (std conc)(premade) PRN and Respiratory Meds: Review of Systems: Constitutional: Denies fever and chills. Respiratory: Endorses shortness of breath with exertion and cough. Denies shortness of breath at rest. Objective: Vital Signs: Last Filed Vital Signs: 24 Hour Range BP: 104/45 (04/11 1200) Temp: 36.9 C (98.4 F) (09/06 1199) Pulse: 72 (09/06 1199) Respirations: 19 PER MINUTE (09/06 1199) SpO2: 99 % (09/06 1199) O2 Delivery: Nasal Cannula (09/06 1199) SpO2 Pulse: 72 (09/06 1199) Height: 189 cm (74.41") (09/06 799) BP: (94-133)/(40-62) Temp: [36.5 C (97.7 F)-37 C (98.6 F)] Pulse: [70-85] Respirations: [14 PER MINUTE-25 PER MINUTE] SpO2: [86 %-99 %] O2 Delivery: Nasal Cannula Vitals: 09/03/17 1430 09/05/17 0800 09/05/17 1130 Weight: 93.3 kg (205 lb 11 oz) 93.5 kg (206 lb 2.1 oz) (S) 91.5 kg (201 lb 11.5 oz) Intake/Output Summary: (Last 24 hours) Intake/Output Summary (Last 24 hours) at 09/05/17 1404 Last data filed at 09/05/17 1130 Gross per 24 hour Intake 756.3 ml Output 2321.11 ml Net -1564.81 ml Stool Occurrence: 1 Physical Exam General: Alert, cooperative, elderly male, lying in bed in no apparent distress. HEENT: Atraumatic, normocephalic. Heart: Regular rate and rhythm without murmur. Lungs: Clear to auscultation bilaterally without wheeze, rhonchi, or rales. Abdomen: Soft, non-distended. Bowel sounds auscultated throughout. Non-tender to palpation. No masses or organomegaly. Extremities: No clubbing, cyanosis, or edema. Lab Review 24-hour labs: Results for orders placed or performed during the hospital encounter of (from the past 24 hour(s)) PTT (APTT) Collection Time: 09/04/17 8:30 PM Result Value Ref Range APTT 28.6 21.0 - 39.0 SEC PTT (APTT) Collection Time: 09/05/17 3:00 AM Result Value Ref Range APTT 79.9 (H) 21.0 - 39.0 SEC COMPREHENSIVE METABOLIC PANEL Collection Time: 09/05/17 3:00 AM Result Value Ref Range Sodium 131 (L) 137 - 147 MMOL/L Potassium 4.2 3.5 - 5.1 MMOL/L Chloride 94 (L) 98 - 110 MMOL/L Glucose 117 (H) 70 - 100 MG/DL Blood Urea Nitrogen 27 (H) 7 - 25 MG/DL Creatinine 7.05 (H) 0.4 - 1.24 MG/DL Calcium 10.6 8.5 - 10.6 MG/DL Total Protein 6.1 6.0 - 8.0 G/DL Total Bilirubin 0.5 0.3 - 1.2 MG/DL Albumin 3.0 (L) 3.5 - 5.0 G/DL Alk Phosphatase 56 25 - 110 U/L AST (SGOT) 8 7 - 40 U/L CO2 29 21 - 30 MMOL/L ALT (SGPT) 6 (L) 7 - 56 U/L Anion Gap 8 3 - 12 eGFR Non 8 (L) >60 mL/min eGFR 9 (L) >60 mL/min CBC AND DIFF Collection Time: 09/05/17 3:00 AM Result Value Ref Range White Blood Cells 7.2 4.5 - 11.0 K/UL RBC 3.06 (L) 4.4 - 5.5 M/UL Hemoglobin 7.9 (L) 13.5 - 16.5 GM/DL Hematocrit 23.3 (L) 40 - 50 % MCV 76.3 (L) 80 - 100 FL MCH 25.7 (L) 26 - 34 PG MCHC 33.7 32.0 - 36.0 G/DL RDW 20.5 (H) 11 - 15 % Platelet Count 232 150 - 400 K/UL MPV 6.1 (L) 7 - 11 FL Neutrophils 89 (H) 41 - 77 % Lymphocytes 7 (L) 24 - 44 % Monocytes 3 (L) 4 - 12 % Eosinophils 1 0 - 5 % Basophils 0 0 - 2 % Absolute Neutrophil Count 6.40 1.8 - 7.0 K/UL Absolute Lymph Count 0.50 (L) 1.0 - 4.8 K/UL Absolute Monocyte Count 0.20 0 - 0.80 K/UL Absolute Eosinophil Count 0.10 0 - 0.45 K/UL Absolute Basophil Count 0.00 0 - 0.20 K/UL PROTIME INR (PT) Collection Time: 09/05/17 3:00 AM Result Value Ref Range INR 1.2 0.8 - 1.2 PTT (APTT) Collection Time: 09/05/17 9:15 AM Result Value Ref Range APTT 62.4 (H) 21.0 - 39.0 SEC Point of Care Testing (Last 24 hours) Glucose: (!) 117 (09/05/17 0300) Radiology and other Diagnostics Review: Pertinent radiology reviewed. Associated attestation - Ari Wilson MD - 09/05/2017 6:37 PM CDT Formatting of this note may be different from the original. ATTESTATION I personally interviewed and examined the patient, performed the yeh portions of the E/M visit, discussed case with resident and concur with resident documentation of history, physical exam, assessment, and treatment plan unless otherwise noted. Staff name: Ari Wilson MD Date: 09/05/2017 * Michela Welch, PT - 09/05/2017 1:17 PM CDT PHYSICAL THERAPY NOTE Chart reviewed and checked with bedside RN. Pt was off floor at dialysis in the morning and off floor at ultrasound in the afternoon. Physical Therapy will continue to follow with skilled intervention as indicated. Therapist: Michela Welch, PT Date: 09/05/2017 * Lorin Wolfe DO - 09/05/2017 9:34 AM CDT Formatting of this note may be different from the original. Pulmonary Progress Note Liz Hendricks Date of Admission: 08/31/2017 Active Problems: Liver transplanted (HCC) Immunosuppression (HCC) Acid-fast bacteria present Primary lung adenocarcinoma (HCC) ESRD (end stage renal disease) on dialysis (HCC) GERD (gastroesophageal reflux disease) Severe malnutrition (HCC) Impression/Plan: Mr. 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 Acute hypoxic respiratory failure- up to 11L, currently on 6L. Also spiked a temp to 101 on 09/03. Patient reports was vomiting episode prior to O2 needs starting- ?aspiration. - CTA shows small acute segmental PE in the lingula. Normally it is unlikely that this small PE could cause this degree of hypoxemia, however this is in one of the few areas of normal lung for him so this may account for the degree of hypoxemia we see - antibiotics per ID - given increase in consolidations in bilateral bases, concern for infectious source overlying adenocarcinoma. Discussed bronchoscopy with patient and will plan on doing this tomorrow morning. Discussed high risk of ending up on ventilator after procedure as well as procedure potentially not giving us any further information, but patient is willing to proceed - NPO after midnight - hold heparin 2 hours prior to procedure (will likely be first case in the AM) , please obtain ptt, inr and type and cross today in case there is need for biopsy 2. Adenocarcinoma of the lung- biopsy consistent with adenocarcinoma with lepidic pattern of growth - onc has requested further testing on biopsy samples including PDL1, ALK, ROS1 , EGFR - onc recommending PET CT for staging 3. AFB positive culture on lung biopsy specimin- identified as JERED - AFB sputum here negative x 3 - unlikely that infiltrates or symptoms are secondary to mycobacterium, and more likely secondary to recently diagnosed adenocarcinoma Pt seen and discussed with Dr. Amado __ Subjective Liz Hendricks is a 76 y.o. male. No acute events overnight. Increased O2 requirements again but patient remains asymptomatic other than cough. No chest pain, sob, fever/chills, no nausea/vomiting/diarrhea/constipation or edema. Objective Vital Signs: Last Filed Vital Signs: 24 Hour Range BP: 104/56 (09/05 929) Temp: 36.9 C (98.5 F) (09/05 324) Pulse: 80 (09/05 929) Respirations: 18 PER MINUTE (09/05 929) SpO2: 97 % (09/05 929) O2 Delivery: Nasal Cannula (09/05 899) SpO2 Pulse: 86 (09/05 929) Height: 189 cm (74.41") (09/06 799) BP: (98-133)/(47-62) Temp: [36.5 C (97.7 F)-37.2 C (98.9 F)] Pulse: [70-85] Respirations: [14 PER MINUTE-25 PER MINUTE] SpO2: [86 %-99 %] O2 Delivery: Nasal Cannula Intake/Output Summary (Last 24 hours) at 09/05/17 0934 Last data filed at 09/05/17 0624 Gross per 24 hour Intake 936.3 ml Output 0 ml Net 936.3 ml PHYSICAL EXAMINATION General: Alert, cooperative, no apparent distress, appears stated age Head: Normocephalic, without obvious abnormality, atraumatic Eyes: Conjunctiva clear. Pupils equal and round, no scleral icterus Neck: Supple, symmetrical, no adenopathy Lungs: Clear to auscultation bilaterally, no rhonchi, wheezing, or rales Heart: Regular rate and rhythm, S1, S2 normal, no murmur,rub,click or gallop Abdomen: Soft, non-tender. Bowel sounds normal. No masses. No organomegaly. Extremities: Extremities normal, atraumatic, no cyanosis or edema, warm Pulses: 2+ and symmetric, all extremities Neurologic Exam Mental Status: alert and oriented x 3 LABS: Recent Labs 09/03/17 0945 09/04/17 0535 09/05/17 0300 NA 137 141 131* K 3.7 4.6 4.2 CL 99 103 94* CO2 27 28 29 GAP 11 10 8 BUN 27* 16 27* CR 8.17* 5.05* 7.05* GLU 140* 107* 117* CA 10.8* 11.1* 10.6 ALBUMIN 3.1* 3.6 3.0* MG -- 1.9 -- PO4 -- 3.5 -- Recent Labs 09/03/17 0945 09/04/17 0535 09/04/17 2030 09/05/17 0300 WBC 4.2* 7.3 -- 7.2 HGB 8.3* 9.2* -- 7.9* HCT 24.3* 27.3* -- 23.3* PLTCT 235 245 -- 232 INR 1.1 1.1 -- 1.2 PTT -- 28.1 28.6 79.9* AST 10 11 -- 8 ALT 7 6* -- 6* ALKPHOS 55 60 -- 56 TNI -- 0.01 -- -- Estimated Creatinine Clearance: 12.2 mL/min (A) (based on SCr of 7.05 mg/dL (H)) . Vitals: 09/03/17 1010 09/03/17 1430 09/05/17 0800 Weight: 94.3 kg (207 lb 14.3 oz) 93.3 kg (205 lb 11 oz) 93.5 kg (206 lb 2.1 oz) No results for input(s): PHART, PO2ART in the last 72 hours. Invalid input(s): PC02A MEDS albuterol 0.5% 2.5 mg Inhalation BID & PRN amLODIPine 10 mg Oral QDAY aspirin 81 mg Oral QDAY atorvastatin 10 mg Oral QDAY doxazosin 2 mg Oral QDAY escitalopram oxalate 10 mg Oral QDAY everolimus (immunosuppressive) 1 mg Oral BID heparin (porcine) 20-40 Units/kg Intravenous As Prescribed ipratropium bromide 0.5 mg Inhalation BID & PRN oxybutynin XL 10 mg Oral QHS pantoprazole DR 40 mg Oral QDAY(21) piperacillin/tazobactam (ZOSYN) IVPB 2.25 g Intravenous Q8H* sevelamer carbonate 800 mg Oral TID w/ meals tacrolimus 0.5 mg Oral BID vancomycin, pharmacy to manage 1 each Service Per Pharmacy vancomycin, random dosing 1 each Intravenous Random Dosing IV MEDS heparin (porcine) 20,000 units/D5W 500 mL infusion (std conc)(premade) 1, 679 Units/hr (09/05/17 0755) Prnacetaminophen Q4H PRN, ondansetron Q6H PRN, sodium chloride 0.9% (NS) IP Dialysis PRN, sodium chloride 0.9% (NS) IP Dialysis PRN, sodium chloride 0.9% ( NS) IP Dialysis PRN, sodium chloride PRN Radiology Pertinent radiology reviewed. Shantel Wolfe DO Pulmonary/Critical Care Pager # [phone] 09/05/2017 * Conner Lynn MD - 09/05/2017 8:54 AM CDT Formatting of this note may be different from the original. Infectious Diseases Progress note Today's Date: 09/05/2017 Admission Date: 08/31/2017 Reason for this consultation: Positive AFB from mass biopsy at OSH. History of OLT in 2013 Consult Type: Co-Management w/Signed Orders Assessment: Lung mass with JERED growth on culture Adenocarcinoma of the lung - 2 months ago the patient was hospitalized at an outside facility for pneumonia. During that hospitalization he underwent bronchoscopy and biopsies were taken of the mass (08/13). This mass showed adenocarcinoma. -08/13 mass bx also had AFB culture sent. + on 08/30. ID was contacted on 08/31 for advice and reportedly recommended admission. -On admission he felt generally unchanged, he did have significant weakness and lost 30 pounds over the prior 10 weeks. He did have a dry cough without any hemoptysis. He had not been incarcerated or had significant travel (only intl was decades ago to [place] and [place]) or TB exposure. -3 AFB sputum cultures were ordered, is placed on airborne precautions, no antibiotics were started and ID was consulted. -No leukocytosis, afebrile. -Regarding the culture that was positive from the mass this was + on 08/30 and sent for ID to the state lab. 09/04 confirmed JERED, requested susceptibilities be sent, discussed with lab employee Monalisa Mccrary Possible secondary bacterial pneumonia -Decompensated overnight 09/03-, broad abx -BAL planned CKD COPD ESRD on HD ESLD s/p OLT in 2012 on everolimus and tacrolimus DM H/O Joint replacement Recommendations: -AFB smears negative x 3, cx's pending -per communication with [facility] and faxed report, lung mass biopsy AFB cx grew JERED. ID requested susceptibilities be sent, discussed with lab employee Monalisa Mccrary on 09/04/17, plan to send to [facility] -Unclear need for treatment vs monitoring. Will discuss potential treatment options as outpatient. JERED not the cause of current symptoms. -Continue vanc + pip/tazo for now pending further w/u. Pulmonary planning for bronchoscopy, agree. -will follow bacterial and AFB cultures to be obtained with BAL planned 09/06 -Watch for antimicrobial toxicities -Will follow Thank you for this consult. We will continue to follow with you. Patient to be discussed with Dr. Lynn. Faith Redd MD Infectious Disease Fellow Pager: [phone] I have seen, personally evaluated, and discussed the patient's care with Dr. Redd, Infectious Diseases Fellow. I agree with the subjective notations, objective findings and agree with the plan of care as documented in this note with edits made by me as necessary. Conner Lynn MD [employer] Division of Infectious Diseases History of Present Illness This is a 76-year-old man with a history of liver transplant in 2013 with disease (Suarez plus alcoholic cirrhosis) on everolimus plus tacrolimus for immunosuppression. He also has a history of end-stage renal disease on hemodialysis and diabetes mellitus.Recent dx of lung adenocarcinoma. The lung mass bx subsequently is growing an AFB, ID and S pattern pending. 3 negative AFB smears, cx pending. 09/04/17 Tunneled non-cuffed right IJ central venous catheter placement Seen In HD. No leukocytosis, afebrile. Requiring 8L supplemental oxygen, this is worse. Denies dyspnea, minimal cough, unable to fully cough up secretions. No f/c/diaphoresis, no rash, no abd pain, no MCKENZIE. Antimicrobial Start date End date Pip/tazo 09/04/17 Vancomycin 09/04/17 Estimated Creatinine Clearance: 12.1 mL/min (A) (based on SCr of 7.05 mg/dL (H)) . Review of Systems Full 10 system ROS completed and negative unless otherwise noted above. Medications Scheduled Meds: albuterol 0.5% (PROVENTIL; VENTOLIN) nebulizer solution 2.5 mg 2.5 mg Inhalation BID & PRN amLODIPine (NORVASC) tablet 10 mg 10 mg Oral QDAY aspirin chewable tablet 81 mg 81 mg Oral QDAY atorvastatin (LIPITOR) tablet 10 mg 10 mg Oral QDAY doxazosin (CARDURA) tablet 2 mg 2 mg Oral QDAY escitalopram oxalate (LEXAPRO) tablet 10 mg 10 mg Oral QDAY everolimus (immunosuppressive) (ZORTRESS) tablet 1 mg 1 mg Oral BID heparin (porcine) injection 1,870-3,730 Units 20-40 Units/kg Intravenous As Prescribed ipratropium bromide (ATROVENT) 0.02 % nebulizer solution 0.5 mg 0.5 mg Inhalation BID & PRN oxybutynin XL (DITROPAN XL) tablet 10 mg 10 [address]HS pantop[address]ole [address] (PROTONIX) tablet 40 mg 40 mg Oral QDAY(21) piperacillin/tazobactam (ZOSYN) 2.25 g/50 mL iso-osmotic IVPB 2.25 g Intravenous Q8H* sevelamer carbonate (RENVELA) tablet 800 mg 800 mg Oral TID w/ meals tacrolimus (PROGRAF) capsule 0.5 mg 0.5 mg Oral BID vancomycin, pharmacy to manage 1 each Service Per Pharmacy vancomycin, random dosing 1 each Intravenous Random Dosing Continuous Infusions: heparin (porcine) 20,000 units/D5W 500 mL infusion (std conc)(premade) 1, 679 Units/hr (09/05/17 0755) PRN and Respiratory Meds:acetaminophen Q4H PRN, ondansetron Q6H PRN, sodium chloride 0.9% (NS) IP Dialysis PRN, sodium chloride 0.9% (NS) IP Dialysis PRN, sodium chloride 0.9% (NS) IP Dialysis PRN, sodium chloride PRN Allergies Allergies Allergen Reactions Adhesive BLISTERS Skin tears Physical Examination Vital Signs: Last Vital Signs: 24 Hour Range BP: 133/61 (09/05 0325) Temp: 36.9 C (98.5 F) (09/05 032) Pulse: 81 (09/05 032) Respirations: 17 PER MINUTE (09/05 032) SpO2: 94 % (09/05 0500) O2 Delivery: CPAP/BiPAP (Pt Owned) (09/05 0500) SpO2 Pulse: 81 (09/04 1800) BP: (108-133)/(50-62) Temp: [36.5 C (97.7 F)-37.2 C (99 F)] Pulse: [70-90] Respirations: [14 PER MINUTE-25 PER MINUTE] SpO2: [86 %-99 %] O2 Delivery: CPAP/BiPAP (Pt Owned) General: alert, oriented x 3, in NAD HENT: normocephalic, atraumatic, oropharynx clear Eyes: EOM grossly intact, Conj nl Neck: supple, no lymphadenopathy Lungs: CTAB, no wheezing, rhonchi, rales appreciated anteriorly, unable to sit up while in HD Heart: regular rhythm, reg rate, no murmur, rub, gallop Abdomen: soft, non-tender, non-distended, normoactive bowel sounds, Ext: no edema Skin: no rashes/lesions Lines: PIV, RUE AV fistula /10 tunneled non cuffed RIJ 2L CVC Lab Review Hematology Recent Labs 09/03/17 0945 09/04/17 0535 09/04/17 2030 09/05/17 0300 WBC 4.2* 7.3 -- 7.2 HGB 8.3* 9.2* -- 7.9* HCT 24.3* 27.3* -- 23.3* PLTCT 235 245 -- 232 PTT -- 28.1 28.6 79.9* INR 1.1 1.1 -- 1.2 Chemistry Recent Labs 09/03/17 0945 09/04/17 0535 09/05/17 0300 NA 137 141 131* K 3.7 4.6 4.2 CL 99 103 94* CO2 27 28 29 BUN 27* 16 27* CR 8.17* 5.05* 7.05* GFR 6* 11* 8* GLU 140* 107* 117* CA 10.8* 11.1* 10.6 PO4 -- 3.5 -- ALBUMIN 3.1* 3.6 3.0* ALKPHOS 55 60 56 AST 10 11 8 ALT 7 6* 6* TOTBILI 0.3 0.4 0.5 Microbiology, Radiology and other Diagnostics Review Microbiology data reviewed. 08/31/17: BC x2 NGTD Pertinent radiology images viewed. Complexity of medical decision making is high due to the multi-system nature of the infectious disease process or potential for limb-threatening infection as well as concerns including but not limited to complexity of the patient's underlying illnesses, the identification and sensitivities of the organisms being treated, the potential for antimicrobial toxicities and drug-drug interactions, concerns regarding immunologic function, and interplay of other issues. Adenocarcinoma of the lung, ESLD s/p OLT, immune suppression, ESRD on HD , lab and imaging review, summary of old records, d/w pulmonary and IM. * Kaylynn Ortiz, KIERSTEN - 09/05/2017 7:41 AM CDT 0741 patient off unit to dialysis 1354 patient back on unit * Mae Cartagena RT - 09/04/2017 10:30 PM CDT Formatting of this note may be different from the original. RESPIRATORY THERAPY ADULT PROTOCOL EVALUATION RESPIRATORY PROTOCOL PLAN Medications Albuterol/Ipratropium: Neb BID;Neb PRN Note: If indicated by protocol, medication orders will be placed by therapist. Procedures PAP: Place a nursing order for "IS Q1h While Awake" for any of Lung Expansion indicators Oxygen/Humidity: O2 to keep SpO2 > 92% Monitoring: Pulse oximetry BID & PRN PATIENT EVALUATION RESULTS Chart Review * Pulmonary Hx: Hx pulmonary disease, hx reactive or obstructive airway disease (PEFR & AM) OR regular home use of bronchodilators (AM) OR inhaled or systemic steroid use for lungs < or equal to 4 times/yr (AM) * Surgical Hx: No surgery OR last surgery > 6 weeks ago OR trach/stoma (BA) * Chest X-Ray: Clear OR not available * PFT/Oxygenation: FEV1, PEFR < 70% OR Pa02 < 70 RA OR Sp02 <92% RA OR Fi02 > 0.21 to keep Sp02 > 92% OR < 24 hours post-op (02 & oxim) OR chronic C02 retention (C02) Patient Assessment * Respiratory Pattern: Regular pattern and rate OR good chest excursion with deep breathing * Breath Sounds: Clear apically, but diminished in bases (LE) OR CHF related crackles (02) (oximetry) * Cough / Sputum: Strong, effective cough OR nonproductive * Mental Status: Alert, oriented, cooperative * Activity Level: Ambulatory with assistance Priority Index Total Points: 7 Points * Priority Index: 1+ PRIORITY INDEX GUIDELINES* Priority Points 1 0-9 points 2 9-18 points 3 > 18 points + Pulm Dx or Home Rx *Higher points indicate higher acuity. Therapist: RT Bob Date: 09/04/2017 Yeh AC=Airway clearance AM=Aerosolized medication BA=[place] aerosol DB&C=Deep breathe & cough FEV1=Forced expiratory volume in first second) IC=Inspiratory capacity LE=Lung expansion MDI=Metered dose inhaler Neb=Nebulizer O2=Oxygen Oxim=Oximetry PEFR=Peak expiratory flow rate [employer] ASSEMBLER=Rapid Response Team * Neli Escobedo RN - 09/04/2017 6:15 PM CDT Received SBAR report from KIERSTEN Tello. Pt is drowsy but easily arousable. Dressing is C/D/I. Pt transported by transported via inpatient bed to flash CT prior to returning to inpatient room. Pt verbalized understanding of plan of care. Denies any complaints at this time. * John Barragan RN - 09/04/2017 4:39 PM CDT Sedation physician present in room. Recent vitals and patient condition reviewed between sedating physician and nurse. Reassessment completed. Determination made to proceed with planned sedation. * Jonathon Munguia MD - 09/04/2017 4:29 PM CDT Formatting of this note may be different from the original. General Progress Note Name: Liz Hendricks Today's Date: 09/04/2017 Admission Date: 08/31/2017 LOS: 4 days Assessment/Plan: Active Problems: Liver transplanted (HCC) Immunosuppression (HCC) Acid-fast bacteria present Primary lung adenocarcinoma (HCC) ESRD (end stage renal disease) on dialysis (HCC) GERD (gastroesophageal reflux disease) Severe malnutrition (HCC) This is a 76 YO male with past medical history significant for OLT in 12/2012 for ESLD 2/2 Suarez and alcohol abuse without postsurgical complications, immunocompromised status on everolimus 2 mg twice daily, and tacrolimus 1 mg twice daily, end-stage renal disease on hemodialysis Sunday, numerous skin cancers both BCC and SCC,, status post resection treatment, recently diagnosed lung adenocarcinoma, hypertension, and GERD who was admitted for positive acid-fast bacteria culture and sputum suspicious for MAC infection. Hepatology team was consulted for further recommendations on the immunosuppressive therapy given his OLT 1. OLT Transplant in 12/2012 for cirrhosis due to SUAREZ and alcohol use. No post transplant complications. 2. Chronic Immunosuppression Currently on everolimus 2 mg twice daily, and tacrolimus 1 mg twice daily, prior to admission, Most recent tacro levels 7.7 on 05/14/17, and everolimus 19.6 on 05/14, then most recently 8.6 on 05/31 - Tacro levels this hospitalization: 5.3--> 3.4 (goals of 3) -Everolimus levels: 10.6--> 5.9 (goal of 5) - Doses decreased by half for both on 09/03 (Tacro 0.5 BID, and everolimus 1 BID) 3. Skin cancer Disease course was complicated by several BCCs, and SCCs, s/p resections. Mainly in the setting of immunosuppressive therapy. 4. ESRD: On hemodialysis M,W,F. 5. Recently diagnosis Lung adenocarcinoma: Diagnosed about 2months ago at OSH, after she was admitted for 3 weeks. Not seen by oncology here yet. Plan was to follow up after SNF, then transferred here 08/31. 6. Possible mycobacterial infection: Lung biopsy showed AF+ bacteria suspicious for mycobacterial infection. No exposure to TB pts, no recent travel. - sputum AFB culture x3 - Started on broad spectrum abx with vanco and zosyn for possible aspiration PNA. Recommendations: -Please cont on current doses of tacro ( 0.5 BID) and everolimus ( 1 BID). - check trough levels for both in AM. - ID and pulmonary onboard for both possible mycobacterial infection (NT given the negative AFB culture), and possible PNA. Cont broad spectrum abx per ID recs --Monitor urine output, daily electrolytes and kidney function -Daily monitor CBC, CMP, and INR -Avoid sedatives including narcotics -Call hepatology if you have any questions or concerns Patient was discussed with Dr. Víctor Munguia MD Gastroenterology and hepatology fellow Pager: [phone] Subjective Liz Hendricks is a 76 y.o. male. Patient was rapid responded due to acute drop in O2, required up to 11 L o2, then down to 3. Started empirically on broad spectrum abx for possible aspiration PNA. Sputum AFB cultures negative x3. Medications Scheduled Meds: albuterol 0.5% (PROVENTIL; VENTOLIN) nebulizer solution 2.5 mg 2.5 mg Inhalation BID & PRN amLODIPine (NORVASC) tablet 10 mg 10 mg Oral QDAY aspirin chewable tablet 81 mg 81 mg Oral QDAY atorvastatin (LIPITOR) tablet 10 mg 10 mg Oral QDAY doxazosin (CARDURA) tablet 2 mg 2 mg Oral QDAY escitalopram oxalate (LEXAPRO) tablet 10 mg 10 mg Oral QDAY everolimus (immunosuppressive) (ZORTRESS) tablet 1 mg 1 mg Oral BID fentaNYL citrate PF (SUBLIMAZE) injection 50 mcg 50 mcg Intravenous ONCE heparin (porcine) PF syringe 5,000 Units 5,000 Units Subcutaneous Q8H ipratropium bromide (ATROVENT) 0.02 % nebulizer solution 0.5 mg 0.5 mg Inhalation BID & PRN midazolam (VERSED) injection 1-2 mg 1-2 mg Intravenous ONCE oxybutynin XL (DITROPAN XL) tablet 10 mg [address]op[address]ole [address] (PROTONIX) tablet 40 mg 40 mg Oral QDAY(21) piperacillin/tazobactam (ZOSYN) 2.25 g/50 mL iso-osmotic IVPB 2.25 g Intravenous Q8H* sevelamer carbonate (RENVELA) tablet 800 mg 800 mg Oral TID w/ meals tacrolimus (PROGRAF) capsule 0.5 mg 0.5 mg Oral BID vancomycin, pharmacy to manage 1 each Service Per Pharmacy vancomycin, random dosing 1 each Intravenous Random Dosing Continuous Infusions: PRN and Respiratory Meds:acetaminophen Q4H PRN, ondansetron Q6H PRN, sodium chloride PRN Objective: Vital Signs: Last Filed Vital Signs: 24 Hour Range BP: 110/51 (09/05 1155) Temp: 37.2 C (98.9 F) (09/05 1155) Pulse: 85 (09/05 1155) Respirations: 20 PER MINUTE (09/05 1155) SpO2: 94 % (09/05 1155) O2 Delivery: Nasal Cannula (09/04 0900) BP: (109-160)/(51-72) Temp: [37 C (98.6 F)-38.4 C (101.1 F)] Pulse: [80-117] Respirations: [18 PER MINUTE-26 PER MINUTE] SpO2: [81 %-95 %] O2 Delivery: Nasal Cannula Vitals: 09/01/17 2145 09/03/17 1010 09/03/17 1430 Weight: 91.3 kg (201 lb 4.5 oz) 94.3 kg (207 lb 14.3 oz) 93.3 kg (205 lb 11 oz) Intake/Output Summary: (Last 24 hours) Intake/Output Summary (Last 24 hours) at 09/04/17 1629 Last data filed at 09/04/17 1300 Gross per 24 hour Intake 1200 ml Output 0 ml Net 1200 ml Stool Occurrence: 1 Physical Exam General: in mild distress, requiring O2 3-4 L Lungs: Clear to auscultation bilaterally Chest wall: No tenderness or deformity. Heart: Regular rate and rhythm, S1, S2 normal, no murmur, click rub or gallop Abdomen: soft, non distended. Non tender, BS+ Extremities: Extremities normal, atraumatic, no cyanosis or edema Skin: Skin color, texture, turgor normal. No rashes or lesions Lymph nodes: Cervical, supraclavicular and axillary nodes normal Neurologic: CNII - XII intact. Normal strength, sensation and reflexes throughout. Lab Review 24-hour labs: Results for orders placed or performed during the hospital encounter of (from the past 24 hour(s)) POC BLOOD GAS ARTERIAL Collection Time: 09/04/17 5:30 AM Result Value Ref Range PH-ART-POC 7.51 (H) 7.35 - 7.45 AUS0-VBO-HOM 38 35 - 45 MMHG PO2-ART-POC 55 (L) 80 - 100 MMHG Base Ex-ART-POC 8.0 MMOL/L O2 Sat-ART-POC 91.0 (L) 95 - 99 % Aldjdejidmp-OCB-PGI 30.7 (H) 21 - 28 MMOL/L POC HEMATOCRIT Collection Time: 09/04/17 5:30 AM Result Value Ref Range Hemoglobin POC 12.6 (L) 13.5 - 16.5 GM/DL Hematocrit POC 37.0 (L) 40 - 50 % POC POTASSIUM Collection Time: 09/04/17 5:30 AM Result Value Ref Range Potassium-POC 4.3 3.5 - 5.1 MMOL/L POC SODIUM Collection Time: 09/04/17 5:30 AM Result Value Ref Range Sodium-POC 137 137 - 147 MMOL/L POC IONIZED CALCIUM Collection Time: 09/04/17 5:30 AM Result Value Ref Range Ionized Calcium-POC 1.35 (H) 1.0 - 1.3 MMOL/L CBC Collection Time: 09/04/17 5:35 AM Result Value Ref Range White Blood Cells 7.3 4.5 - 11.0 K/UL RBC 3.57 (L) 4.4 - 5.5 M/UL Hemoglobin 9.2 (L) 13.5 - 16.5 GM/DL Hematocrit 27.3 (L) 40 - 50 % MCV 76.6 (L) 80 - 100 FL MCH 25.7 (L) 26 - 34 PG MCHC 33.5 32.0 - 36.0 G/DL RDW 20.8 (H) 11 - 15 % Platelet Count 245 150 - 400 K/UL MPV 6.3 (L) 7 - 11 FL PROTIME INR (PT) Collection Time: 09/04/17 5:35 AM Result Value Ref Range INR 1.1 0.8 - 1.2 PTT (APTT) Collection Time: 09/04/17 5:35 AM Result Value Ref Range APTT 28.1 21.0 - 39.0 SEC COMPREHENSIVE METABOLIC PANEL Collection Time: 09/04/17 5:35 AM Result Value Ref Range Sodium 141 137 - 147 MMOL/L Potassium 4.6 3.5 - 5.1 MMOL/L Chloride 103 98 - 110 MMOL/L Glucose 107 (H) 70 - 100 MG/DL Blood Urea Nitrogen 16 7 - 25 MG/DL Creatinine 5.05 (H) 0.4 - 1.24 MG/DL Calcium 11.1 (H) 8.5 - 10.6 MG/DL Total Protein 6.7 6.0 - 8.0 G/DL Total Bilirubin 0.4 0.3 - 1.2 MG/DL Albumin 3.6 3.5 - 5.0 G/DL Alk Phosphatase 60 25 - 110 U/L AST (SGOT) 11 7 - 40 U/L CO2 28 21 - 30 MMOL/L ALT (SGPT) 6 (L) 7 - 56 U/L Anion Gap 10 3 - 12 eGFR Non 11 (L) >60 mL/min eGFR 14 (L) >60 mL/min TROPONIN-I Collection Time: 09/04/17 5:35 AM Result Value Ref Range Troponin-I 0.01 0.0 - 0.05 NG/ML LACTIC ACID (BG - RAPID LACTATE) Collection Time: 09/04/17 5:35 AM Result Value Ref Range Lactic Acid,BG 1.2 0.5 - 2.0 MMOL/L MAGNESIUM Collection Time: 09/04/17 5:35 AM Result Value Ref Range Magnesium 1.9 1.6 - 2.6 mg/dL PHOSPHORUS Collection Time: 09/04/17 5:35 AM Result Value Ref Range Phosphorus 3.5 2.0 - 4.0 MG/DL POC GLUCOSE Collection Time: 09/04/17 5:35 AM Result Value Ref Range Glucose, POC 109 (H) 70 - 100 MG/DL D-DIMER Collection Time: 09/04/17 5:35 AM Result Value Ref Range D-Dimer 1,289 (H) <500 ng/mL FEU Point of Care Testing (Last 24 hours) Glucose: (!) 107 (09/04/17534) POC Glucose (Download): (!) 109 (09/04/17534) Radiology and other Diagnostics Review: Pertinent radiology reviewed. Jonathon Munguia MD Pager Associated attestation - Nivia Renee MD - 09/04/2017 9:36 PM CDT I have discussed this patient's care with the resident and concur with content written but did not personally see and exam the patient today. Nivia Renee MD * Sonia Palafox RN - 09/04/2017 3:18 PM CDT Procedural education completed with patient/family at this time, no questions/ concerns. * Faith Jordan DO - 09/04/2017 3:07 PM CDT Formatting of this note may be different from the original. General Progress Note Name: Liz Hendricks Today's Date: 09/04/2017 Admission Date: 08/31/2017 LOS: 4 days Assessment/Plan: Active Problems: Liver transplanted (HCC) Immunosuppression (HCC) Acid-fast bacteria present Primary lung adenocarcinoma (HCC) ESRD (end stage renal disease) on dialysis (HCC) GERD (gastroesophageal reflux disease) Severe malnutrition (HCC) Liz Hendricks is a 76 y.o. 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 Acute hypoxemic respiratory failure- improving -S/p rapid response this am -AB.51, pCO2 38, pO2 55 on 4 Lpm -spO2 at 81% and bumped to 11 LPM of O2 -Well's score of 8, D-dimer 1289 -Patient satting well on 3 LMP after this episode -CXR appears mildly improved from previous PLAN >Patient needs CTA, poor vascular access so will get IR to place PICC today >Empiric abx with vancomycin and zosyn >Plan for regular HD after CTA Positive acid-fast bacteria culture Assessment Unclear significance at this point, it is certainly possible that this is only a MAC infection. - The patient is quite immunocompromised secondary to his immunosuppression for orthotopic liver transplant. - He does not have any risk factors for tuberculosis. - Symptomatically, the patient is relatively unchanged over the past several months since he was hospitalized for the pneumonia. Nevertheless, will be important to rule out active tuberculosis and further workup this finding. Plan Acid-fast bacteria sputum 3 negative--will remove isolation precautions Hold on empiric antibiotics at this time Infectious disease consulted, appreciate recs: Suspect NTM rather than TB. --Pulmonary consult for assistance with Mycobacterium management History of orthotopic liver transplant Orthotopic liver transplant in 2012. --He has been immunosuppressed with tacrolimus and everolimus. This has been complicated by biliary stricture requiring stent. He follows with Dr. Regan Brock of our hepatology department here. Plan: Obtain daily tacrolimus (goal ~3) and everolimus (goal ~5) levels; decrease tacrolimus to 0.5 mg BID and everolimus to 1 mg BID Hepatology consulted, appreciate recs: Will adjust dosages of immunosuppressants based on levels. Daily INR. Adenocarcinoma - Bronchoscopy and biopsies were taken at OSH on 08/13; biopsies revealed adenocarcinoma - Patient has not initiated treatment - Patient planned to establish with [facility] this week but has been hospitalized Plan: - Consult medical oncology - Consult pulmonology, as above History of end-stage renal disease (secondary to immunosuppression) on Sunday, , Sunday dialysis Nephrology consulted, appreciate recs: Patient to continue his TTS dialysis schedule. Continue sevelamer 800 mg TID with meals for hyperphosphatemia. Check iron studies. Continue TRAFFIC OPERATOR phosphate binder Hypertension Continue TRAFFIC OPERATOR amlodipine and Cardura History of GERD Continue TRAFFIC OPERATOR pantoprazole FEN: Renal dialysis diet PPx: Heparin Code Status: DNAR-FI Disposition: Continue admission to inpatient internal medicine under care of the Med 2 team. Patient seen and discussed with Dr. Wilson. Faith Jordan, PGY-1 Subjective Liz Hendricks is a 76 y.o. male. Overnight, patient had a rapid response for acute drop in O2 saturation. He was placed on 11 Lpm of oxygen. He was started on empiric antibiotics for possible aspiration pneumonia. While interviewing patient this am, he was decreased to 3 Lpm of O2 and was satting in low 90s. Patient reports not remembering the incident. He states he was a little confused this am, but otherwise states he feels fine. He has not been out of the bed much since admission. He denies fever, chills, chest pain, abdominal pain, constipation, diarrhea, changes in urination, extremity edema. Medications Scheduled Meds: albuterol 0.5% (PROVENTIL; VENTOLIN) nebulizer solution 2.5 mg 2.5 mg Inhalation BID & PRN amLODIPine (NORVASC) tablet 10 mg 10 mg Oral QDAY aspirin chewable tablet 81 mg 81 mg Oral QDAY atorvastatin (LIPITOR) tablet 10 mg 10 mg Oral QDAY doxazosin (CARDURA) tablet 2 mg 2 mg Oral QDAY escitalopram oxalate (LEXAPRO) tablet 10 mg 10 mg Oral QDAY everolimus (immunosuppressive) (ZORTRESS) tablet 1 mg 1 mg Oral BID heparin (porcine) PF syringe 5,000 Units 5,000 Units Subcutaneous Q8H ipratropium bromide (ATROVENT) 0.02 % nebulizer solution 0.5 mg 0.5 mg Inhalation BID & PRN oxybutynin XL (DITROPAN XL) tablet 10 mg 10 [address]HS pantop[address]ole [address] (PROTONIX) tablet 40 mg 40 mg Oral QDAY(21) piperacillin/tazobactam (ZOSYN) 2.25 g/50 mL iso-osmotic IVPB 2.25 g Intravenous Q8H* sevelamer carbonate (RENVELA) tablet 800 mg 800 mg Oral TID w/ meals tacrolimus (PROGRAF) capsule 0.5 mg 0.5 mg Oral BID vancomycin, pharmacy to manage 1 each Service Per Pharmacy vancomycin, random dosing 1 each Intravenous Random Dosing Continuous Infusions: PRN and Respiratory Meds: Review of Systems: Constitutional: Denies fever and chills. Respiratory: Endorses shortness of breath with exertion and cough. Denies shortness of breath at rest. Objective: Vital Signs: Last Filed Vital Signs: 24 Hour Range BP: 110/51 (09/05 1155) Temp: 37.2 C (98.9 F) (09/05 1155) Pulse: 85 (09/05 1155) Respirations: 20 PER MINUTE (09/05 1155) SpO2: 94 % (09/05 1155) O2 Delivery: Nasal Cannula (09/04 899) BP: (109-160)/(51-72) Temp: [37 C (98.6 F)-38.4 C (101.1 F)] Pulse: [80-117] Respirations: [18 PER MINUTE-26 PER MINUTE] SpO2: [81 %-95 %] O2 Delivery: Nasal Cannula Vitals: 09/01/17 2145 09/03/17 1010 09/03/17 1430 Weight: 91.3 kg (201 lb 4.5 oz) 94.3 kg (207 lb 14.3 oz) 93.3 kg (205 lb 11 oz) Intake/Output Summary: (Last 24 hours) Intake/Output Summary (Last 24 hours) at 09/04/17 1508 Last data filed at 09/04/17 0900 Gross per 24 hour Intake 480 ml Output 0 ml Net 480 ml Stool Occurrence: 1 Physical Exam General: Alert, cooperative, elderly male, lying in bed in no apparent distress. HEENT: Atraumatic, normocephalic. Heart: Regular rate and rhythm without murmur. Lungs: Clear to auscultation bilaterally without wheeze, rhonchi, or rales. Abdomen: Soft, non-distended. Bowel sounds auscultated throughout. Non-tender to palpation. No masses or organomegaly. Extremities: No clubbing, cyanosis, or edema. Lab Review 24-hour labs: Results for orders placed or performed during the hospital encounter of (from the past 24 hour(s)) POC BLOOD GAS ARTERIAL Collection Time: 09/04/17 5:30 AM Result Value Ref Range PH-ART-POC 7.51 (H) 7.35 - 7.45 NBD3-WKG-STV 38 35 - 45 MMHG PO2-ART-POC 55 (L) 80 - 100 MMHG Base Ex-ART-POC 8.0 MMOL/L O2 Sat-ART-POC 91.0 (L) 95 - 99 % Vnjlaknjesb-ZAW-YYO 30.7 (H) 21 - 28 MMOL/L POC HEMATOCRIT Collection Time: 09/04/17 5:30 AM Result Value Ref Range Hemoglobin POC 12.6 (L) 13.5 - 16.5 GM/DL Hematocrit POC 37.0 (L) 40 - 50 % POC POTASSIUM Collection Time: 09/04/17 5:30 AM Result Value Ref Range Potassium-POC 4.3 3.5 - 5.1 MMOL/L POC SODIUM Collection Time: 09/04/17 5:30 AM Result Value Ref Range Sodium-POC 137 137 - 147 MMOL/L POC IONIZED CALCIUM Collection Time: 09/04/17 5:30 AM Result Value Ref Range Ionized Calcium-POC 1.35 (H) 1.0 - 1.3 MMOL/L CBC Collection Time: 09/04/17 5:35 AM Result Value Ref Range White Blood Cells 7.3 4.5 - 11.0 K/UL RBC 3.57 (L) 4.4 - 5.5 M/UL Hemoglobin 9.2 (L) 13.5 - 16.5 GM/DL Hematocrit 27.3 (L) 40 - 50 % MCV 76.6 (L) 80 - 100 FL MCH 25.7 (L) 26 - 34 PG MCHC 33.5 32.0 - 36.0 G/DL RDW 20.8 (H) 11 - 15 % Platelet Count 245 150 - 400 K/UL MPV 6.3 (L) 7 - 11 FL PROTIME INR (PT) Collection Time: 09/04/17 5:35 AM Result Value Ref Range INR 1.1 0.8 - 1.2 PTT (APTT) Collection Time: 09/04/17 5:35 AM Result Value Ref Range APTT 28.1 21.0 - 39.0 SEC COMPREHENSIVE METABOLIC PANEL Collection Time: 09/04/17 5:35 AM Result Value Ref Range Sodium 141 137 - 147 MMOL/L Potassium 4.6 3.5 - 5.1 MMOL/L Chloride 103 98 - 110 MMOL/L Glucose 107 (H) 70 - 100 MG/DL Blood Urea Nitrogen 16 7 - 25 MG/DL Creatinine 5.05 (H) 0.4 - 1.24 MG/DL Calcium 11.1 (H) 8.5 - 10.6 MG/DL Total Protein 6.7 6.0 - 8.0 G/DL Total Bilirubin 0.4 0.3 - 1.2 MG/DL Albumin 3.6 3.5 - 5.0 G/DL Alk Phosphatase 60 25 - 110 U/L AST (SGOT) 11 7 - 40 U/L CO2 28 21 - 30 MMOL/L ALT (SGPT) 6 (L) 7 - 56 U/L Anion Gap 10 3 - 12 eGFR Non 11 (L) >60 mL/min eGFR 14 (L) >60 mL/min TROPONIN-I Collection Time: 09/04/17 5:35 AM Result Value Ref Range Troponin-I 0.01 0.0 - 0.05 NG/ML LACTIC ACID (BG - RAPID LACTATE) Collection Time: 09/04/17 5:35 AM Result Value Ref Range Lactic Acid,BG 1.2 0.5 - 2.0 MMOL/L MAGNESIUM Collection Time: 09/04/17 5:35 AM Result Value Ref Range Magnesium 1.9 1.6 - 2.6 mg/dL PHOSPHORUS Collection Time: 09/04/17 5:35 AM Result Value Ref Range Phosphorus 3.5 2.0 - 4.0 MG/DL POC GLUCOSE Collection Time: 09/04/17 5:35 AM Result Value Ref Range Glucose, POC 109 (H) 70 - 100 MG/DL D-DIMER Collection Time: 09/04/17 5:35 AM Result Value Ref Range D-Dimer 1,289 (H) <500 ng/mL FEU Point of Care Testing (Last 24 hours) Glucose: (!) 107 (09/04/17534) POC Glucose (Download): (!) 109 (09/04/17534) Radiology and other Diagnostics Review: Pertinent radiology reviewed. Associated attestation - Ari Wilson MD - 09/04/2017 9:31 PM CDT Formatting of this note may be different from the original. ATTESTATION I personally interviewed and examined the patient, performed the yeh portions of the E/M visit, discussed case with resident and concur with resident documentation of history, physical exam, assessment, and treatment plan unless otherwise noted. Staff name: Ari Wilson MD Date: 09/04/2017 * Conner Lynn MD - 09/04/2017 3:02 PM CDT Formatting of this note may be different from the original. Infectious Diseases Progress note Today's Date: 09/04/2017 Admission Date: 08/31/2017 Reason for this consultation: Positive AFB from mass biopsy at OSH. History of OLT in 2012 Consult Type: Co-Management w/Signed Orders Assessment: Lung mass with Positive AFB Culture Adenocarcinoma of the lung - 2 months ago the patient was hospitalized at an outside facility for pneumonia. During that hospitalization he underwent bronchoscopy and biopsies were taken of the mass (08/13). This mass showed adenocarcinoma. -08/13 mass bx also had AFB culture sent. + on 08/30. ID was contacted on 08/31 for advice and reportedly recommended admission. -On admission he felt generally unchanged, he did have significant weakness and lost 30 pounds over the prior 10 weeks. He did have a dry cough without any hemoptysis. He had not been incarcerated or had significant travel (only intl was decades ago to [place] and [place]) or TB exposure. -3 AFB sputum cultures were ordered, is placed on airborne precautions, no antibiotics were started and ID was consulted. -No leukocytosis, afebrile. -Regarding the culture that was positive from the mass - this was + on 08/30 and sent for ID to the state lab. 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 -Suspect NTM. Unclear need for treatment vs monitoring. Unlikely to be TB. If confirmed NTM will discuss potential treatment options in clinic. -Agree vanc + pip/tazo for now pending further w/u. Possible aspiration. If continues to improve likely would top vanc in am (or abx all together if doing well enough) -Watch for antimicrobial toxicities -Will follow Thank you for the consultation. Conner Lynn MD [employer] Division of Infectious Diseases History of Present Illness This is a 76-year-old man with a history of liver transplant in 2012 with disease ([place] plus alcoholic cirrhosis) on everolimus plus tacrolimus for immunosuppression. He also has a history of end-stage renal disease on hemodialysis and diabetes mellitus.Recent dx of lung adenocarcinoma. The lung mass bx subsequently is growing an AFB, ID and S pattern pending. 3 negative AFB smears, cx pending. No leukocytosis, afebrile. [employer] overnight, increased o2 requirement briefly, now improved. Denies dyspnea, minimal cough. Had vomited around the time of [employer]. No f/c/diaphoresis, no rash, no abd pain, no MCKENZIE or neck stiffness. Antimicrobial Start date End date Estimated Creatinine Clearance: 16.9 mL/min (A) (based on SCr of 5.05 mg/dL (H)) . Review of Systems Full 10 system ROS completed and negative unless otherwise noted above. Medications Scheduled Meds: albuterol 0.5% (PROVENTIL; VENTOLIN) nebulizer solution 2.5 mg 2.5 mg Inhalation BID & PRN amLODIPine (NORVASC) tablet 10 mg 10 mg Oral QDAY aspirin chewable tablet 81 mg 81 mg Oral QDAY atorvastatin (LIPITOR) tablet 10 mg 10 mg Oral QDAY doxazosin (CARDURA) tablet 2 mg 2 mg Oral QDAY escitalopram oxalate (LEXAPRO) tablet 10 mg 10 mg Oral QDAY everolimus (immunosuppressive) (ZORTRESS) tablet 1 mg 1 mg Oral BID heparin (porcine) PF syringe 5,000 Units 5,000 Units Subcutaneous Q8H ipratropium bromide (ATROVENT) 0.02 % nebulizer solution 0.5 mg 0.5 mg Inhalation BID & PRN oxybutynin XL (DITROPAN XL) tablet 10 mg [address] (PROTONIX) tablet 40 mg 40 mg Oral QDAY(21) piperacillin/tazobactam (ZOSYN) 2.25 g/50 mL iso-osmotic IVPB 2.25 g Intravenous Q8H* sevelamer carbonate (RENVELA) tablet 800 mg 800 mg Oral TID w/ meals tacrolimus (PROGRAF) capsule 0.5 mg 0.5 mg Oral BID vancomycin, pharmacy to manage 1 each Service Per Pharmacy vancomycin, random dosing 1 each Intravenous Random Dosing Continuous Infusions: PRN and Respiratory Meds:acetaminophen Q4H PRN, ondansetron Q6H PRN, sodium chloride PRN Allergies Allergies Allergen Reactions Adhesive BLISTERS Skin tears Physical Examination Vital Signs: Last Vital Signs: 24 Hour Range BP: 110/51 (09/05 1155) Temp: 37.2 C (98.9 F) (09/05 1155) Pulse: 85 (09/05 1155) Respirations: 20 PER MINUTE (09/05 1155) SpO2: 94 % (09/04 115) O2 Delivery: Nasal Cannula (09/04 0900) BP: (109-160)/(51-72) Temp: [37 C (98.6 F)-38.4 C (101.1 F)] Pulse: [80-117] Respirations: [18 PER MINUTE-26 PER MINUTE] SpO2: [81 %-95 %] O2 Delivery: Nasal Cannula General appearance: alert, oriented x 3, in NAD HENT: normocephalic, atraumatic, oropharynx clear Eyes: EOM grossly intact, Conj nl Neck: supple, no lymphadenopathy Lungs: CTAB, no wheezing, rhonchi, rales appreciated Heart: regular rhythm, reg rate, no murmur, rub, gallop Abdomen: soft, non-tender, non-distended, normoactive bowel sounds, Ext: no clubbing, cyanosis or edema Skin: no rashes/lesions Lines: PIV, AV fistula Lab Review Hematology Recent Labs 09/02/17 0551 09/03/17 0945 09/04/17 0535 WBC 5.2 4.2* 7.3 HGB 10.0* 8.3* 9.2* HCT 29.6* 24.3* 27.3* PLTCT 255 235 245 PTT -- -- 28.1 INR 1.1 1.1 1.1 Chemistry Recent Labs 09/02/17 0551 09/03/17 0945 09/04/17 0535 NA 136* 137 141 K 3.8 3.7 4.6 CL 98 99 103 CO2 28 27 28 BUN 15 27* 16 CR 5.69* 8.17* 5.05* GFR 10* 6* 11* GLU 97 140* 107* CA 10.8* 10.8* 11.1* PO4 -- -- 3.5 ALBUMIN 3.4* 3.1* 3.6 ALKPHOS 61 55 60 AST 10 10 11 ALT 8 7 6* TOTBILI 0.4 0.3 0.4 Microbiology, Radiology and other Diagnostics Review Microbiology data reviewed. 08/31/17: BC x2 NGTD Pertinent radiology images viewed. Complexity of medical decision making is high due to the multi-system nature of the infectious disease process or potential for limb-threatening infection as well as concerns including but not limited to complexity of the patient's underlying illnesses, the identification and sensitivities of the organisms being treated, the potential for antimicrobial toxicities and drug-drug interactions, concerns regarding immunologic function, and interplay of other issues. Adenocarcinoma of the lung, ESLD s/p OLT, immune suppression, ESRD on HD , lab and imaging review, summary of old records, d/w pulmonary and IM. * Kaylynn rOtiz RN - 09/04/2017 2:54 PM CDT 1454 Patient off unit to IR 1848 patient back on unit * Lester Winters RN - 09/04/2017 12:17 PM CDT Spoke with Dr. Powell about PICC placement. Patient with an AV Fistula in the RUE, patient will need to go to IR for a Tunneled Non-Cuffed CVC. * Nahomy Collier MD - 09/04/2017 12:04 PM CDT Formatting of this note may be different from the original. Renal Progress Note Name: Liz Hendricks Today's Date: 09/04/2017 Admission Date: 08/31/2017 LOS: 4 days Assessment and Plan Active Problems: Liver transplanted (HCC) Immunosuppression (HCC) Acid-fast bacteria present Primary lung adenocarcinoma (HCC) ESRD (end stage renal disease) on dialysis (HCC) GERD (gastroesophageal reflux disease) Severe malnutrition (HCC) Liz Hendricks is a 76 y.o. male End-stage renal disease on hemodialysis Sunday. [place] is right AV fistula. His dry weight is stated to be 110 however he has lost significant weight and his and last weight was around 92 in the dialysis facility. Lung mass with the positive AFB culture-on neg pressure isolation Adenocarcinoma of the lung ESLD s/p OLT on overolimus and tacro DM Anemia Hypokalemia HTN Hyperphosphatemia On immuno suppressions. Tacro 5.3 and Everolimus 10.6 Recommendations: No acute indication for HD. Pt will receive CTA to investigate last night event. Will follow. I suspect he may have aspirated. I don't suspect fluid overload follow tacro and ever levels Continue amlodipine and cardura Continue renagel 800 mg TID with meals for high Phosphate . NAHOMY COLLIER MD Pager [phone] Subjective Liz Hendricks is a 76 y.o. male Event with vomiting, desaturation and AMS noted. Rapid response called Medications Medications MEDS albuterol 0.5% 2.5 mg Inhalation BID & PRN amLODIPine 10 mg Oral QDAY aspirin 81 mg Oral QDAY atorvastatin 10 mg Oral QDAY doxazosin 2 mg Oral QDAY escitalopram oxalate 10 mg Oral QDAY everolimus (immunosuppressive) 1 mg Oral BID heparin (porcine) 5,000 Units Subcutaneous Q8H ipratropium bromide 0.5 mg Inhalation BID & PRN oxybutynin XL 10 [address] 40 mg Oral QDAY(21) piperacillin/tazobactam (ZOSYN) IVPB 2.25 g Intravenous Q8H* sevelamer carbonate 800 mg Oral TID w/ meals tacrolimus 0.5 mg Oral BID vancomycin, pharmacy to manage 1 each Service Per Pharmacy vancomycin, random dosing 1 each Intravenous Random Dosing IV MEDS Prn acetaminophen Q4H PRN 650 mg at 09/04/17 0601, ondansetron Q6H PRN , sodium chloride PRN 15 mL at 09/03/17 0543 Physical Exam Vital Signs: Last Filed In 24 Hours Vital Signs: 24 Hour Range BP: 110/54 (09/04 1700) Temp: 37.2 C (98.9 F) (09/04 1156) Pulse: 75 (09/04 1700) Respirations: 15 PER MINUTE (09/04 1700) SpO2: 98 % (09/04 1700) O2 Delivery: CPAP/BiPAP (Pt Owned) (09/04 1655) SpO2 Pulse: 75 (09/04 1700) BP: (108-160)/(51-72) Temp: [37 C (98.6 F)-38.4 C (101.1 F)] Pulse: [70-117] Respirations: [14 PER MINUTE-26 PER MINUTE] SpO2: [81 %-98 %] O2 Delivery: CPAP/BiPAP (Pt Owned) Intake/Output Summary (Last 24 hours) at 09/04/17 1705 Last data filed at 09/04/17 1300 Gross per 24 hour Intake 1200 ml Output 0 ml Net 1200 ml Vitals: 09/01/17 2145 09/03/17 1010 09/03/17 1430 Weight: 91.3 kg (201 lb 4.5 oz) 94.3 kg (207 lb 14.3 oz) 93.3 kg (205 lb 11 oz) Gen: Alert and Oriented, No Acute Distress HEENT: Sclera normal; no cervical lymphadenopathy CV: no JVD, S1 and S2 normal, no rubs, murmurs or gallops Pulm: Clear to Auscultation bilateral , no chest wall tenderness GI: BS+ x4, non-tender to palpation Neuro: Grossly normal, moving all extremities, speech intact Ext: no edema, clubbing or cyanosis Skin: no rash Rt AVF Labs: Recent Labs 09/02/17 0551 09/03/17 0945 09/04/17 0535 NA 136* 137 141 K 3.8 3.7 4.6 CL 98 99 103 CO2 28 27 28 GAP 10 11 10 BUN 15 27* 16 CR 5.69* 8.17* 5.05* GLU 97 140* 107* CA 10.8* 10.8* 11.1* ALBUMIN 3.4* 3.1* 3.6 MG -- -- 1.9 PO4 -- -- 3.5 Recent Labs 09/02/17 0551 09/03/17 0945 09/04/17 0535 WBC 5.2 4.2* 7.3 HGB 10.0* 8.3* 9.2* HCT 29.6* 24.3* 27.3* PLTCT 255 235 245 INR 1.1 1.1 1.1 PTT -- -- 28.1 AST 10 10 11 ALT 8 7 6* ALKPHOS 61 55 60 TNI -- -- 0.01 Estimated Creatinine Clearance: 16.9 mL/min (A) (based on SCr of 5.05 mg/dL (H)) . Vitals: 09/01/17 2145 09/03/17 1010 09/03/17 1430 Weight: 91.3 kg (201 lb 4.5 oz) 94.3 kg (207 lb 14.3 oz) 93.3 kg (205 lb 11 oz) No results for input(s): PHART, PO2ART in the last 72 hours. Invalid input(s): PC02A * Sami Li, KIERSTEN - 09/04/2017 11:45 AM CDT Unable to gain IV access with US. * Shu Amado MD - 09/04/2017 9:49 AM CDT Formatting of this note may be different from the original. Pulmonary Progress Note Liz Hendricks Date of Admission: 08/31/2017 Active Problems: Liver transplanted (HCC) Immunosuppression (HCC) Acid-fast bacteria present Primary lung adenocarcinoma (HCC) ESRD (end stage renal disease) on dialysis (HCC) GERD (gastroesophageal reflux disease) Severe malnutrition (HCC) Impression/Plan: Mr. 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 Acute hypoxic respiratory failure- up to 11L overnight, now down to 4L. Also spiked a temp to 101. Patient reports was vomiting yesterday evening- ? aspiration. High risk for PE given active malignancy so should remain high on differential, especially given lack of dyspnea. - agree with CTA - CXR unchanged, but CT will give better evaluation of lung parenchyma. - ABG done at time of rapid confirms level of hypoxia - agree with antibiotics 2. Adenocarcinoma of the lung- biopsy consistent with adenocarcinoma with lepidic pattern of growth - onc has requested further testing on biopsy samples including PDL1, ALK, ROS1 , EGFR - onc recommending PET CT for staging - no further need for bronchoscopy at this time unless need more tissue for further testing or if PET CT shows need for further biopsy for staging purposes 3. AFB positive culture on lung biopsy specimin- likely JERED, given lack of TB risk factors. - waiting final identification - AFB sputum here negative x 3 - unlikely that infiltrates or symptoms are secondary to mycobacterium, and more likely secondary to recently diagnosed adenocarcinoma Pt seen and discussed with Dr. Amado ATTESTATION I personally performed the E/M including history, physical exam, and MDM. Staff name: Shu Amado MD Date: 09/04/2017 __ Subjective No chest pain, sob, fever/chills, no nausea/vomiting/diarrhea/constipation or edema. Patient with increased O2 requirements overnight, [employer] called. Patient is asymptomatic and in no distress. Objective Vital Signs: Last Filed Vital Signs: 24 Hour Range BP: 121/53 (09/04 899) Temp: 37.2 C (99 F) (09/04 899) Pulse: 90 (09/04 899) Respirations: 20 PER MINUTE (09/04 899) SpO2: 94 % (09/04 899) O2 Delivery: Nasal Cannula (09/04 899) BP: (96-160)/(44-89) Temp: [36.5 C (97.7 F)-38.4 C (101.1 F)] Pulse: [71-117] Respirations: [16 PER MINUTE-26 PER MINUTE] SpO2: [81 %-98 %] O2 Delivery: Nasal Cannula Intake/Output Summary (Last 24 hours) at 09/04/17948 Last data filed at 09/04/17899 Gross per 24 hour Intake 1780 ml Output 1320 ml Net 460 ml PHYSICAL EXAMINATION General: Alert, cooperative, no apparent distress, appears stated age Head: Normocephalic, without obvious abnormality, atraumatic Eyes: Conjunctiva clear. PERRL, EOMs intact. Neck: Supple, symmetrical, no adenopathy Lungs: Clear to auscultation bilaterally, no rhonchi, wheezing, or rales Heart: Regular rate and rhythm, S1, S2 normal, no murmur,rub,click or gallop Abdomen: Soft, non-tender. Bowel sounds normal. No masses. No organomegaly. Extremities: Extremities normal, atraumatic, no cyanosis or edema Pulses: 2+ and symmetric, all extremities Neurologic Exam Mental Status: alert and oriented x 3 LABS: Recent Labs 09/02/1755009/03/17 0945 09/04/17 0535 NA 136* 137 141 K 3.8 3.7 4.6 CL 98 99 103 CO2 28 27 28 GAP 10 11 10 BUN 15 27* 16 CR 5.69* 8.17* 5.05* GLU 97 140* 107* CA 10.8* 10.8* 11.1* ALBUMIN 3.4* 3.1* 3.6 MG -- -- 1.9 PO4 -- -- 3.5 Recent Labs 09/02/1751 09/03/17 0945 09/04/17 0535 WBC 5.2 4.2* 7.3 HGB 10.0* 8.3* 9.2* HCT 29.6* 24.3* 27.3* PLTCT 255 235 245 INR 1.1 1.1 1.1 PTT -- -- 28.1 AST 10 10 11 ALT 8 7 6* ALKPHOS 61 55 60 TNI -- -- 0.01 Estimated Creatinine Clearance: 16.9 mL/min (A) (based on SCr of 5.05 mg/dL (H)) . Vitals: 09/01/17 2145 09/03/17 1010 09/03/17 1430 Weight: 91.3 kg (201 lb 4.5 oz) 94.3 kg (207 lb 14.3 oz) 93.3 kg (205 lb 11 oz) No results for input(s): PHART, PO2ART in the last 72 hours. Invalid input(s): PC02A MEDS albuterol 0.5% 2.5 mg Inhalation BID & PRN amLODIPine 10 mg Oral QDAY aspirin 81 mg Oral QDAY atorvastatin 10 mg Oral QDAY doxazosin 2 mg Oral QDAY escitalopram oxalate 10 mg Oral QDAY everolimus (immunosuppressive) 1 mg Oral BID heparin (porcine) 5,000 Units Subcutaneous Q8H ipratropium bromide 0.5 mg Inhalation BID & PRN oxybutynin XL 5 mg Oral BID pantop[address]ole DR 40 mg Oral QDAY(21) piperacillin/tazobactam (ZOSYN) IVPB 2.25 g Intravenous Q8H* sevelamer carbonate 800 mg Oral TID w/ meals tacrolimus 0.5 mg Oral BID vancomycin, pharmacy to manage 1 each Service Per Pharmacy vancomycin, random dosing 1 each Intravenous Random Dosing IV MEDS Prnacetaminophen Q4H PRN, ondansetron Q6H PRN, sodium chloride PRN Radiology Pertinent radiology reviewed. Shantel Wolfe DO Pulmonary/Critical Care Pager # [phone] 09/04/2017 * Miranda Peres, PHARMD - 09/04/2017 7:53 AM CDT Formatting of this note may be different from the original. Pharmacy Vancomycin Note Subjective: Liz Hendricks is a 76 y.o. male being treated for Fever, hypoxia. Objective: Current Vancomycin Orders Medication Dose Route Frequency vancomycin, pharmacy to manage 1 each Service Per Pharmacy vancomycin, random dosing 1 each Intravenous Random Dosing Day of Vancomycin therapy: 1 Additional Abx: zosyn White Blood Cells Date/Time Value Ref Range Status 09/04/2017 0535 7.3 4.5 - 11.0 K/UL Final 09/03/2017 0945 4.2 (L) 4.5 - 11.0 K/UL Final 09/02/2017 0551 5.2 4.5 - 11.0 K/UL Final 09/01/2017 0800 4.9 4.5 - 11.0 K/UL Final Creatinine Date/Time Value Ref Range Status 09/04/2017 0535 5.05 (H) 0.4 - 1.24 MG/DL Final 09/03/2017 0945 8.17 (H) 0.4 - 1.24 MG/DL Final 09/02/2017 0551 5.69 (H) 0.4 - 1.24 MG/DL Final Blood Urea Nitrogen Date/Time Value Ref Range Status 09/04/2017 0535 16 7 - 25 MG/DL Final Estimated CrCl: HD Intake/Output Summary (Last 24 hours) at 09/04/17 0753 Last data filed at 09/04/17 0251 Gross per 24 hour Intake 1780 ml Output 1320 ml Net 460 ml Actual Weight: 93.3 kg (205 lb 11 oz) Dosing BW: 93.3 kg Assessment: Target levels for this patient: Trough < 20 . Plan: 1. Patient recieved vancomycin 1500mg IV x1 2. Next scheduled level(s): Will get after HD tomorrow 3. Pharmacy will continue to monitor and adjust therapy as needed. Miranda Peres, PharmD, [facility] Internal Medicine Clinical Pharmacist * Carmita Rae, KIERSTEN - 09/04/2017 6:11 AM CDT [employer] called @ 0524 for increased O2 demands (10-11L HFNC), temp 101.1F ax, AMS (A /Ox1-2). * Asia Luther, KIERSTEN - 09/04/2017 5:48 AM CDT Second set of blood cultures drawn peripherally, left hand, by IV therapy. * Manuel Franklin - 09/04/2017 5:44 AM CDT Evidence Custodian entered patient record to document that patient is [employer] per conversation with patient's Louise during rapid response event. The spiritual care team is available as needed, 18/12, through the [employer] switchboard ([phone]). For immediate response, please page [phone]. For a response within 24 hours, please submit an order in O2 for a strapper consult or call the administrative voicemail at [phone]. * Manuel Franklin - 09/04/2017 5:20 AM CDT Reason for Visit: Rapid response page. Suyapa/Jainism: [employer]. Source of Purpose/Meaning: Not assessed as patient had a rapid response event in isolation location. Worries/Concerns/Struggles: Not assessed. Method(s) of Coping: Not assessed. Support System: Patient has for support system. Interventions/Plan: Evidence Custodian attended rapid response event. Evidence Custodian didn't enter the patient's isolation room. Patient's Louise left the room and thanked strapper for visiting. Patient's also said that her is [employer] and didn't need a strapper at this time. Evidence Custodian thanked patient's for her time and took leave. The spiritual care team is available as needed, 18/12, through the [employer] switchboard ([phone]). For immediate response, please page [phone]. For a response within 24 hours, please submit an order in O2 for a strapper consult or call the administrative voicemail at [phone]. * Carmita Rae, KIERSTEN - 09/04/2017 4:35 AM CDT Formatting of this note may be different from the original. 09/04/17 0434 Vitals Temp (!) 38.4 C (101.1 F) Temperature Source Axillary Pulse 117 SpO2 (!) 81 % O2 Delivery NC O2 Liter Flow 3 lpm MD Kristen Segovia notified, awaiting orders for blood cultures or PRN meds for fever * Faith Jordan DO - 09/03/2017 4:38 PM CDT Formatting of this note may be different from the original. General Progress Note Name: Liz Hendricks Today's Date: 09/03/2017 Admission Date: 08/31/2017 LOS: 3 days Assessment/Plan: Active Problems: Liver transplanted (HCC) Immunosuppression (HCC) Acid-fast bacteria present Primary lung adenocarcinoma (HCC) ESRD (end stage renal disease) on dialysis (HCC) GERD (gastroesophageal reflux disease) Severe malnutrition (HCC) Liz Hendricks is a 76 y.o. 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 Positive acid-fast bacteria culture Assessment Unclear significance at this point, it is certainly possible that this is only a MAC infection. - The patient is quite immunocompromised secondary to his immunosuppression for orthotopic liver transplant. - He does not have any risk factors for tuberculosis. - Symptomatically, the patient is relatively unchanged over the past several months since he was hospitalized for the pneumonia. Nevertheless, will be important to rule out active tuberculosis and further workup this finding. Plan Acid-fast bacteria sputum 3 Airborne precautions Hold on empiric antibiotics at this time Infectious disease consulted, appreciate recs: Suspect NTM rather than TB. - At the recommendation of ID, this author called the main [employer] phone number at on 09/01 in an attempt to ask for Tb and JERED PCR testing to be done on the sample from the patient's lung mass. This author was told that the [facility] lab is not open on s but will be open again on Sunday. This author left a request for a lab member to call the [facility] Med-2 team back on Sunday. --Pulmonary consult for assistance with Mycobacterium management and likely for repeat bronchoscopy to confirm diagnosis History of orthotopic liver transplant Orthotopic liver transplant in 2012. --He has been immunosuppressed with tacrolimus and everolimus. This has been complicated by biliary stricture requiring stent. He follows with Dr. Regan Brock of our hepatology department here. Plan: Obtain daily tacrolimus (goal ~3) and everolimus (goal ~5) levels; decrease tacrolimus to 0.5 mg BID and everolimus to 1 mg BID Hepatology consulted, appreciate recs: Will adjust dosages of immunosuppressants based on levels. Daily INR. Adenocarcinoma - Bronchoscopy and biopsies were taken at OSH on 08/13; biopsies revealed adenocarcinoma - Patient has not initiated treatment - Patient planned to establish with [facility] Medical Oncology this week but has been hospitalized Plan: - Consult medical oncology - Consult pulmonology, as above History of end-stage renal disease (secondary to immunosuppression) on Sunday, , Sunday dialysis Nephrology consulted, appreciate recs: Patient to continue his TTS dialysis schedule. Continue sevelamer 800 mg TID with meals for hyperphosphatemia. Check iron studies. Continue TRAFFIC OPERATOR phosphate binder Hypertension Continue TRAFFIC OPERATOR amlodipine and Cardura History of GERD Continue TRAFFIC OPERATOR pantoprazole FEN: Renal dialysis diet PPx: Heparin Code Status: DNAR-FI Disposition: Continue admission to inpatient internal medicine under care of the Med 2 team. Patient seen and discussed with Dr. Wilson. Faith Jordan, PGY-1 Subjective Liz Hendricks is a 76 y.o. male. No acute overnight events. Patient reports feeling a little weak this am. He has not been out of the bed much since admission. He is in good spirits this morning. He denies fever, chills, chest pain, abdominal pain, constipation, diarrhea, changes in urination, extremity edema. Medications Scheduled Meds: albuterol 0.5% (PROVENTIL; VENTOLIN) nebulizer solution 2.5 mg 2.5 mg Inhalation BID & PRN amLODIPine (NORVASC) tablet 10 mg 10 mg Oral QDAY aspirin chewable tablet 81 mg 81 mg Oral QDAY atorvastatin (LIPITOR) tablet 10 mg 10 mg Oral QDAY doxazosin (CARDURA) tablet 2 mg 2 mg Oral QDAY escitalopram oxalate (LEXAPRO) tablet 10 mg 10 mg Oral QDAY everolimus (immunosuppressive) (ZORTRESS) tablet 1 mg 1 mg Oral BID heparin (porcine) PF syringe 5,000 Units 5,000 Units Subcutaneous Q8H ipratropium bromide (ATROVENT) 0.02 % nebulizer solution 0.5 mg 0.5 mg Inhalation BID & PRN oxybutynin XL (DITROPAN XL) tablet 5 mg 5 [address]DAY [address] (PROTONIX) tablet 40 mg 40 mg Oral QDAY(21) sevelamer carbonate (RENVELA) tablet 800 mg 800 mg Oral TID w/ meals tacrolimus (PROGRAF) capsule 0.5 mg 0.5 mg Oral BID Continuous Infusions: PRN and Respiratory Meds: Review of Systems: Constitutional: Denies fever and chills. Respiratory: Endorses shortness of breath with exertion and cough. Denies shortness of breath at rest. Objective: Vital Signs: Last Filed Vital Signs: 24 Hour Range BP: 141/65 (09/03 1429) Temp: 36.5 C (97.7 F) (09/03 1429) Pulse: 74 (09/03 1429) Respirations: 20 PER MINUTE (09/03 1429) SpO2: 90 % (09/03 1429) O2 Delivery: None (Room Air) (09/03 1429) BP: (96-141)/(44-89) Temp: [36.5 C (97.7 F)-37 C (98.6 F)] Pulse: [71-90] Respirations: [16 PER MINUTE-24 PER MINUTE] SpO2: [90 %-98 %] O2 Delivery: None (Room Air) Vitals: 09/01/17 2145 09/03/17 1010 09/03/17 1430 Weight: 91.3 kg (201 lb 4.5 oz) 94.3 kg (207 lb 14.3 oz) 93.3 kg (205 lb 11 oz) Intake/Output Summary: (Last 24 hours) Intake/Output Summary (Last 24 hours) at 09/03/17 1639 Last data filed at 09/03/17 1430 Gross per 24 hour Intake 1780 ml Output 1320 ml Net 460 ml Stool Occurrence: 0 Physical Exam General: Alert, cooperative, elderly male, lying in bed in no apparent distress. HEENT: Atraumatic, normocephalic. Heart: Regular rate and rhythm without murmur. Lungs: Clear to auscultation bilaterally without wheeze, rhonchi, or rales. Abdomen: Soft, non-distended. Bowel sounds auscultated throughout. Non-tender to palpation. No masses or organomegaly. Extremities: No clubbing, cyanosis, or edema. Lab Review 24-hour labs: Results for orders placed or performed during the hospital encounter of (from the past 24 hour(s)) CULTURE-TB (AFB) Collection Time: 09/03/17 3:30 AM Result Value Ref Range Battery Name AFB CULTURE Specimen Description SPUTUM Special Requests NONE Acid Fast Stain NO ACID FAST BACILLI SEEN Culture Report Status CBC AND DIFF Collection Time: 09/03/17 9:45 AM Result Value Ref Range White Blood Cells 4.2 (L) 4.5 - 11.0 K/UL RBC 3.20 (L) 4.4 - 5.5 M/UL Hemoglobin 8.3 (L) 13.5 - 16.5 GM/DL Hematocrit 24.3 (L) 40 - 50 % MCV 76.0 (L) 80 - 100 FL MCH 25.8 (L) 26 - 34 PG MCHC 34.0 32.0 - 36.0 G/DL RDW 20.8 (H) 11 - 15 % Platelet Count 235 150 - 400 K/UL MPV 6.6 (L) 7 - 11 FL Neutrophils 79 (H) 41 - 77 % Lymphocytes 11 (L) 24 - 44 % Monocytes 7 4 - 12 % Eosinophils 2 0 - 5 % Basophils 1 0 - 2 % Absolute Neutrophil Count 3.30 1.8 - 7.0 K/UL Absolute Lymph Count 0.50 (L) 1.0 - 4.8 K/UL Absolute Monocyte Count 0.30 0 - 0.80 K/UL Absolute Eosinophil Count 0.10 0 - 0.45 K/UL Absolute Basophil Count 0.00 0 - 0.20 K/UL COMPREHENSIVE METABOLIC PANEL Collection Time: 09/03/17 9:45 AM Result Value Ref Range Sodium 137 137 - 147 MMOL/L Potassium 3.7 3.5 - 5.1 MMOL/L Chloride 99 98 - 110 MMOL/L Glucose 140 (H) 70 - 100 MG/DL Blood Urea Nitrogen 27 (H) 7 - 25 MG/DL Creatinine 8.17 (H) 0.4 - 1.24 MG/DL Calcium 10.8 (H) 8.5 - 10.6 MG/DL Total Protein 6.1 6.0 - 8.0 G/DL Total Bilirubin 0.3 0.3 - 1.2 MG/DL Albumin 3.1 (L) 3.5 - 5.0 G/DL Alk Phosphatase 55 25 - 110 U/L AST (SGOT) 10 7 - 40 U/L CO2 27 21 - 30 MMOL/L ALT (SGPT) 7 7 - 56 U/L Anion Gap 11 3 - 12 eGFR Non 6 (L) >60 mL/min eGFR 8 (L) >60 mL/min PROTIME INR (PT) Collection Time: 09/03/17 9:45 AM Result Value Ref Range INR 1.1 0.8 - 1.2 EVEROLIMUS BLOOD Collection Time: 09/03/17 9:45 AM Result Value Ref Range Everolimus 5.9 3 - 10 ng/mL TACROLIMUS LEVEL(FK506) Collection Time: 09/03/17 9:45 AM Result Value Ref Range Tacrolimus 3.4 2 - 15 NG/ML Point of Care Testing (Last 24 hours) Glucose: (!) 140 (09/03/17 0945) Radiology and other Diagnostics Review: Pertinent radiology reviewed. Associated attestation - Ari Wilson MD - 09/03/2017 8:17 PM CDT Formatting of this note may be different from the original. ATTESTATION I personally interviewed and examined the patient, performed the yeh portions of the E/M visit, discussed case with resident and concur with resident documentation of history, physical exam, assessment, and treatment plan unless otherwise noted. Staff name: Ari Wilson MD Date: 09/03/2017 * Conner Lynn MD - 09/03/2017 1:28 PM CDT Formatting of this note may be different from the original. Infectious Diseases Progress note Today's Date: 09/03/2017 Admission Date: 08/31/2017 Reason for this consultation: Positive AFB from mass biopsy at OSH. History of OLT in 2012 Consult Type: Co-Management w/Signed Orders Assessment: Lung mass with Positive AFB Culture Adenocarcinoma of the lung - 2 months ago the patient was hospitalized at an outside facility for pneumonia. During that hospitalization he underwent bronchoscopy and biopsies were taken of the mass (08/13). This mass showed adenocarcinoma. -08/13 mass bx also had AFB culture sent. + on 08/30. ID was contacted on 08/31 for advice and reportedly recommended admission. -On admission he felt generally unchanged, he did have significant weakness and lost 30 pounds over the prior 10 weeks. He did have a dry cough without any hemoptysis. He had not been incarcerated or had significant travel (only intl was decades ago to [place] and [place]) or TB exposure. -3 AFB sputum cultures were ordered, is placed on airborne precautions, no antibiotics were started and ID was consulted. -No leukocytosis, afebrile. -Regarding the culture that was positive from the mass - this was + on 08/30 and sent for ID to the state lab. CKD COPD ESRD on HD ESLD s/p OLT on everolimus and tacrolimus DM H/O Joint replacement Recommendations: -Will follow AFB smears/cultures, 2 pending in micro. -Suspect NTM. Unclear need for treatment vs monitoring. Unlikely to be TB. -Would call [facility] lab and ask for TB and JERED PCR testing to be done on the sample from his lung mass - spoke with med 2 team, they've left messages, will continue to call. -Watch for antimicrobial toxicities -Will follow Thank you for the consultation. Conner Lynn MD [employer] Division of Infectious Diseases History of Present Illness This is a 76-year-old man with a history of liver transplant in 2012 with disease (Suarez plus alcoholic cirrhosis) on everolimus plus tacrolimus for immunosuppression. He also has a history of end-stage renal disease on hemodialysis and diabetes mellitus.Recent dx of lung adenocarcinoma. The lung mass bx subsequently is growing an AFB, ID and S pattern pending. Admitted to rule out pulmonary TB. No history of TB risk factors. 2 sputum AFB 's pending in micro, third pending collection. No leukocytosis, afebrile. Regarding the culture that was positive from the mass - this was + on 08/30 and sent for ID to the state lab. Feels good. Weak, no dyspnea, has a dry cough, no f/c/diaphoresis, no hemoptysis, no n/v, no rash, no abd pain, no MCKENZIE or neck stiffness. Antimicrobial Start date End date Estimated Creatinine Clearance: 10.6 mL/min (A) (based on SCr of 8.17 mg/dL (H)) . Review of Systems Full 10 system ROS completed and negative unless otherwise noted above. Medications Scheduled Meds: albuterol 0.5% (PROVENTIL; VENTOLIN) nebulizer solution 2.5 mg 2.5 mg Inhalation BID & PRN amLODIPine (NORVASC) tablet 10 mg 10 mg Oral QDAY aspirin chewable tablet 81 mg 81 mg Oral QDAY atorvastatin (LIPITOR) tablet 10 mg 10 mg Oral QDAY doxazosin (CARDURA) tablet 2 mg 2 mg Oral QDAY everolimus (immunosuppressive) (ZORTRESS) tablet 1 mg 1 mg Oral BID heparin (porcine) PF syringe 5,000 Units 5,000 Units Subcutaneous Q8H ipratropium bromide (ATROVENT) 0.02 % nebulizer solution 0.5 mg 0.5 mg Inhalation BID & PRN oxybutynin XL (DITROPAN XL) tablet 5 mg 5 [address]DAY [address] (PROTONIX) tablet 40 mg 40 mg Oral QDAY(21) sevelamer carbonate (RENVELA) tablet 800 mg 800 mg Oral TID w/ meals tacrolimus (PROGRAF) capsule 0.5 mg 0.5 mg Oral BID Continuous Infusions: PRN and Respiratory Meds:sodium chloride 0.9% (NS) IP Dialysis PRN, sodium chloride 0.9% (NS) IP Dialysis PRN, sodium chloride 0.9% (NS) IP Dialysis PRN, sodium chloride PRN Allergies Allergies Allergen Reactions Adhesive BLISTERS Skin tears Physical Examination Vital Signs: Last Vital Signs: 24 Hour Range BP: 130/50 (09/03 1230) Temp: 36.7 C (98 F) (09/03 1010) Pulse: 72 (09/03 1230) Respirations: 24 PER MINUTE (09/03 1230) SpO2: 96 % (09/03 1230) O2 Delivery: None (Room Air) (09/03 123) BP: (96-139)/(44-89) Temp: [36.6 C (97.9 F)-37 C (98.6 F)] Pulse: [71-90] Respirations: [16 PER MINUTE-24 PER MINUTE] SpO2: [92 %-98 %] O2 Delivery: None (Room Air) General appearance: alert, oriented x 3, in NAD HENT: normocephalic, atraumatic, oropharynx clear Eyes: EOM grossly intact, Conj nl Neck: supple, no lymphadenopathy Lungs: CTAB, no wheezing, rhonchi, rales appreciated Heart: regular rhythm, reg rate, no murmur, rub, gallop Abdomen: soft, non-tender, non-distended, normoactive bowel sounds, Ext: no clubbing, cyanosis or edema Skin: no rashes/lesions Lines: PIV, AV fistula Lab Review Hematology Recent Labs 08/31/17 1907 09/01/17 0800 09/02/17 0551 09/03/17 0945 WBC -- 4.9 5.2 4.2* HGB -- 8.6* 10.0* 8.3* HCT -- 26.2* 29.6* 24.3* PLTCT -- 245 255 235 PTT 27.7 -- -- -- INR 1.1 -- 1.1 1.1 Chemistry Recent Labs 08/31/17 1830 09/01/17 0800 09/02/17 0551 09/03/17 0945 NA 134* 135* 136* 137 K 3.4* 3.1* 3.8 3.7 CL 94* 95* 98 99 CO2 28 27 28 27 BUN 29* 34* 15 27* CR 8.42* 9.32* 5.69* 8.17* GFR 6* 6* 10* 6* GLU 98 112* 97 140* CA 10.3 10.7* 10.8* 10.8* PO4 6.6* -- -- -- ALBUMIN 3.4* 3.2* 3.4* 3.1* ALKPHOS 56 61 61 55 AST 13 11 10 10 ALT 9 8 8 7 TOTBILI 0.3 0.3 0.4 0.3 Microbiology, Radiology and other Diagnostics Review Microbiology data reviewed. 08/31/17: BC x2 NGTD Pertinent radiology images viewed. Complexity of medical decision making is high due to the multi-system nature of the infectious disease process or potential for limb-threatening infection as well as concerns including but not limited to complexity of the patient's underlying illnesses, the identification and sensitivities of the organisms being treated, the potential for antimicrobial toxicities and drug-drug interactions, concerns regarding immunologic function, and interplay of other issues. Adenocarcinoma of the lung, ESLD s/p OLT, immune suppression, ESRD on HD , lab and imaging review, summary of old records, d/w pulmonary and IM. * Nahomy Collier MD - 09/03/2017 11:36 AM CDT Formatting of this note may be different from the original. Renal Progress Note Name: Liz Zamora Eladio Today's Date: 09/03/2017 Admission Date: 08/31/2017 LOS: 3 days Assessment and Plan Active Problems: Liver transplanted (HCC) Immunosuppression (HCC) Acid-fast bacteria present Primary lung adenocarcinoma (HCC) ESRD (end stage renal disease) on dialysis (HCC) GERD (gastroesophageal reflux disease) Severe malnutrition (HCC) Liz Hendricks is a 76 y.o. male End-stage renal disease on hemodialysis Sunday but missed Sunday dialysis. [place] is right AV fistula. His dry weight is stated to be 110 however he has lost significant weight and his and last weight was around 92 in the dialysis facility. Lung mass with the positive AFB culture-on neg pressure isolation Adenocarcinoma of the lung ESLD s/p OLT on overolimus and tacro DM Anemia Hypokalemia HTN Hyperphosphatemia On immuno suppressions. Tacro 5.3 and Everolimus 10.6 Recommendations: Patient seen and examined while on hemodialysis in his room with precautions. Dialysis scheduled for 4 hours, ultrafiltration 3 L, he was tolerating it well. Chest clear to auscultation bilateral. Family was present in the room and all his other questions were answered. follow tacro and ever levels Continue amlodipine and cardura Continue renagel 800 mg TID with meals for high Phosphate Continue airborne precaution and follow ID Pedro Pablo regarding positive AFB culture - we will coordinate dialysis to maintain these precautions. NAHOMY COLLIER MD Pager [phone] Subjective Liz Hendricks is a 76 y.o. male No events overnight Medications Medications MEDS albuterol 0.5% 2.5 mg Inhalation BID & PRN amLODIPine 10 mg Oral QDAY aspirin 81 mg Oral QDAY atorvastatin 10 mg Oral QDAY doxazosin 2 mg Oral QDAY escitalopram oxalate 10 mg Oral QDAY everolimus (immunosuppressive) 1 mg Oral BID heparin (porcine) 5,000 Units Subcutaneous Q8H ipratropium bromide 0.5 mg Inhalation BID & PRN oxybutynin XL [address] Q[address] 40 mg Oral QDAY(21) sevelamer carbonate 800 mg Oral TID w/ meals tacrolimus 0.5 mg Oral BID IV MEDS Prn sodium chloride PRN 15 mL at 09/03/17 0543 Physical Exam Vital Signs: Last Filed In 24 Hours Vital Signs: 24 Hour Range BP: 141/65 (09/03 1429) Temp: 36.5 C (97.7 F) (09/03 143) Pulse: 74 (09/03 1430) Respirations: 20 PER MINUTE (09/03 143) SpO2: 95 % (09/03 1814) O2 Delivery: None (Room Air) (04/09 1430) BP: (96-141)/(44-89) Temp: [36.5 C (97.7 F)-37 C (98.6 F)] Pulse: [71-90] Respirations: [16 PER MINUTE-24 PER MINUTE] SpO2: [90 %-98 %] O2 Delivery: None (Room Air) Intake/Output Summary (Last 24 hours) at 09/03/17 1937 Last data filed at 09/03/17 1430 Gross per 24 hour Intake 1300 ml Output 1320 ml Net -20 ml Vitals: 09/01/17 2145 09/03/17 1010 09/03/17 1430 Weight: 91.3 kg (201 lb 4.5 oz) 94.3 kg (207 lb 14.3 oz) 93.3 kg (205 lb 11 oz) Gen: Alert and Oriented, No Acute Distress in isolation room HEENT: Sclera normal; no cervical lymphadenopathy CV: no JVD, S1 and S2 normal, no rubs, murmurs or gallops Pulm: Clear to Auscultation bilateral , no chest wall tenderness GI: BS+ x4, non-tender to palpation Neuro: Grossly normal, moving all extremities, speech intact Ext: no edema, clubbing or cyanosis Skin: no rash Rt AVF Labs: Recent Labs 09/01/17 0800 09/02/17 0551 09/03/17 0945 NA 135* 136* 137 K 3.1* 3.8 3.7 CL 95* 98 99 CO2 27 28 27 GAP 13* 10 11 BUN 34* 15 27* CR 9.32* 5.69* 8.17* GLU 112* 97 140* CA 10.7* 10.8* 10.8* ALBUMIN 3.2* 3.4* 3.1* Recent Labs 09/01/17 0800 09/02/17 0551 09/03/17 0945 WBC 4.9 5.2 4.2* HGB 8.6* 10.0* 8.3* HCT 26.2* 29.6* 24.3* PLTCT 245 255 235 INR -- 1.1 1.1 AST 11 10 10 ALT 8 8 7 ALKPHOS 61 61 55 Estimated Creatinine Clearance: 10.5 mL/min (A) (based on SCr of 8.17 mg/dL (H)) . Vitals: 09/01/17 2145 09/03/17 1010 09/03/17 1430 Weight: 91.3 kg (201 lb 4.5 oz) 94.3 kg (207 lb 14.3 oz) 93.3 kg (205 lb 11 oz) No results for input(s): PHART, PO2ART in the last 72 hours. Invalid input(s): PC02A * Conner Arias, RT - 09/03/2017 5:52 AM CDT Pt unable to produce sputum sample for AFB after induction. * Enoch Tavares MD - 09/02/2017 8:05 PM CDT With the patient's written consent, this author sent a release of confidential information request to [facility] in [place], [place]. Fax number [phone]. All records were requested, including pathology slides. * Regan Brock MD - 09/02/2017 6:25 PM CDT Immunosuppression levels reviewed. Everolimus trough 10.6 and tacrolimus trough 5.3 this morning. Discussed with Dr. Kiser. Recommend decrease tacrolimus to 0.5 mg twice daily with target level of ~3. Regarding everolimus reduce to 1 mg twice daily with target level of ~5. Repeat trough level in 48 hours to reassess. * Nahomy Collier MD - 09/02/2017 1:01 PM CDT Formatting of this note may be different from the original. Renal Progress Note Name: Liz Hendricks Today's Date: 09/02/2017 Admission Date: 08/31/2017 LOS: 2 days Assessment and Plan Active Problems: Liver transplanted (HCC) Immunosuppression (HCC) Acid-fast bacteria present Primary lung adenocarcinoma (HCC) ESRD (end stage renal disease) on dialysis (HCC) GERD (gastroesophageal reflux disease) Liz Hendricks is a 76 y.o. male End-stage renal disease on hemodialysis Sunday but missed Sunday dialysis. [place] is right AV fistula. His dry weight is stated to be 110 however he has lost significant weight and his and last weight was around 92 in the dialysis facility. Lung mass with the positive AFB culture-on neg pressure isolation Adenocarcinoma of the lung ESLD s/p OLT on overolimus and tacro DM Anemia Hypokalemia HTN Hyperphosphatemia On immuno suppressions. Tacro 5.3 and Everolimus 10.6 Recommendations: No indication for HD today. Schedule is MWF Agree with decreasing tacro and ever dose Continue amlodipine and cardura Continue renagel 800 mg TID with meals for high Phosphate Continue airborne precaution and follow ID Pedro Pablo regarding positive AFB culture - we will coordinate dialysis to maintain these precautions. NAHOMY COLLIER MD Pager [phone] Subjective Liz Hendricks is a 76 y.o. male No events overnight Medications Medications MEDS albuterol 0.5% 2.5 mg Inhalation BID & PRN amLODIPine 10 mg Oral QDAY aspirin 81 mg Oral QDAY atorvastatin 10 mg Oral QDAY doxazosin 2 mg Oral QDAY everolimus (immunosuppressive) 1 mg Oral BID heparin (porcine) 5,000 Units Subcutaneous Q8H ipratropium bromide 0.5 mg Inhalation BID & PRN oxybutynin XL 5 [address] QDAY pantop[address] 40 mg Oral QDAY(21) sevelamer carbonate 800 mg Oral TID w/ meals tacrolimus 0.5 mg Oral BID IV MEDS Prn sodium chloride PRN Physical Exam Vital Signs: Last Filed In 24 Hours Vital Signs: 24 Hour Range BP: 121/48 (09/02 143) Temp: 36.6 C (97.9 F) (09/02 1433) Pulse: 84 (09/02 1434) Respirations: 18 PER MINUTE (09/02 143) SpO2: 93 % (09/02 1438) O2 Delivery: Nasal Cannula (09/02 1437) BP: (109-139)/(48-86) Temp: [36.2 C (97.2 F)-37.1 C (98.7 F)] Pulse: [68-84] Respirations: [17 PER MINUTE-24 PER MINUTE] SpO2: [92 %-95 %] O2 Delivery: Nasal Cannula Intensity Pain Scale 0-10 (Pain 1): Asleep (09/02/17 0410) Intake/Output Summary (Last 24 hours) at 09/02/17 1601 Last data filed at 09/02/17 0920 Gross per 24 hour Intake 1320 ml Output 1300 ml Net 20 ml Vitals: 08/31/17 2045 09/01/17 2145 Weight: 92.3 kg (203 lb 7.8 oz) 91.3 kg (201 lb 4.5 oz) Gen: Alert and Oriented, No Acute Distress in isolation room HEENT: Sclera normal; no cervical lymphadenopathy CV: no JVD, S1 and S2 normal, no rubs, murmurs or gallops Pulm: Clear to Auscultation bilateral , no chest wall tenderness GI: BS+ x4, non-tender to palpation Neuro: Grossly normal, moving all extremities, speech intact Ext: no edema, clubbing or cyanosis Skin: no rash Rt AVF Labs: Recent Labs 08/31/17 1830 09/01/17 0800 09/02/17 0551 NA 134* 135* 136* K 3.4* 3.1* 3.8 CL 94* 95* 98 CO2 28 27 28 GAP 12 13* 10 BUN 29* 34* 15 CR 8.42* 9.32* 5.69* GLU 98 112* 97 CA 10.3 10.7* 10.8* ALBUMIN 3.4* 3.2* 3.4* MG 2.0 -- -- PO4 6.6* -- -- Recent Labs 08/31/17 1830 08/31/17 1907 09/01/17 0800 09/02/17 0551 WBC 5.7 -- 4.9 5.2 HGB 8.6* -- 8.6* 10.0* HCT 25.8* -- 26.2* 29.6* PLTCT 235 -- 245 255 INR -- 1.1 -- 1.1 PTT -- 27.7 -- -- AST 13 -- 11 10 ALT 9 -- 8 8 ALKPHOS 56 -- 61 61 Estimated Creatinine Clearance: 14.7 mL/min (A) (based on SCr of 5.69 mg/dL (H)) . Vitals: 08/31/17 2045 09/01/17 2145 Weight: 92.3 kg (203 lb 7.8 oz) 91.3 kg (201 lb 4.5 oz) No results for input(s): PHART, PO2ART in the last 72 hours. Invalid input(s): PC02A * Nial Salas, RT - 09/02/2017 7:01 AM CDT 0650 pt declining hypertonic saline for sputum sample at this time. Pt does not have a productive cough at this time and is unable to provide a sputum sample.Pt stated " I haven't been able to cough anything up for ten weeks I'm not going to now". Educated pt on the use of hypertonic saline to provide sputum sample. Pt asked that we return at 0800 to reconsider. RN aware. Will follow up and continue to monitor. * Enoch Tavares MD - 09/02/2017 4:30 AM CDT Formatting of this note may be different from the original. General Progress Note Name: Liz Hendricks Today's Date: 09/02/2017 Admission Date: 08/31/2017 LOS: 2 days Assessment/Plan: Active Problems: Liver transplanted (HCC) Immunosuppression (HCC) Acid-fast bacteria present Primary lung adenocarcinoma (HCC) ESRD (end stage renal disease) on dialysis (HCC) GERD (gastroesophageal reflux disease) Liz Hendricks is a 76 y.o. 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 Positive acid-fast bacteria culture Assessment Unclear significance at this point, it is certainly possible that this is only a MAC infection. - The patient is quite immunocompromised secondary to his immunosuppression for orthotopic liver transplant. - He does not have any risk factors for tuberculosis. - Symptomatically, the patient is relatively unchanged over the past several months since he was hospitalized for the pneumonia. Nevertheless, will be important to rule out active tuberculosis and further workup this finding. Plan Acid-fast bacteria sputum 3 Airborne precautions Hold on empiric antibiotics at this time Infectious disease consulted, appreciate recs: Suspect NTM rather than TB. - At the recommendation of ID, this author called the main [facility] phone number at on 09/01 in an attempt to ask for Tb and JERED PCR testing to be done on the sample from the patient's lung mass. This author was told that the [facility] lab is not open on weekends but will be open again on Sunday. This author left a request for a lab member to call the [facility] Med-2 team back on Sunday. --Pulmonary consult for assistance with Mycobacterium management and likely for repeat bronchoscopy to confirm diagnosis History of orthotopic liver transplant Orthotopic liver transplant in 2012. --He has been immunosuppressed with tacrolimus and everolimus. This has been complicated by biliary stricture requiring stent. He follows with Dr. Regan Brock of our hepatology department here. Plan: Obtain daily tacrolimus (goal ~3) and everolimus (goal ~5) levels; decrease tacrolimus to 0.5 mg BID and everolimus to 1 mg BID Hepatology consulted, appreciate recs: Will adjust dosages of immunosuppressants based on levels. Daily INR. Adenocarcinoma - Bronchoscopy and biopsies were taken at OSH on 08/13; biopsies revealed adenocarcinoma - Patient has not initiated treatment - Patient planned to establish with [facility] Medical Oncology this week but has been hospitalized Plan: - Consult medical oncology - Consult pulmonology, as above History of end-stage renal disease (secondary to immunosuppression) on Sunday, , Sunday dialysis Nephrology consulted, appreciate recs: Patient to continue his TTS dialysis schedule. Continue sevelamer 800 mg TID with meals for hyperphosphatemia. Check iron studies. Continue TRAFFIC OPERATOR phosphate binder Hypertension Continue TRAFFIC OPERATOR amlodipine and Cardura History of GERD Continue TRAFFIC OPERATOR pantoprazole FEN: Renal dialysis diet PPx: Heparin Code Status: DNAR-FI Disposition: Continue admission to inpatient internal medicine under care of the Med 2 team. Patient seen and discussed with Dr. Kiser. Enoch Tavares M.D. Internal Medicine/Psychiatry PGY-1 Pager: [phone] Subjective Liz Hendricks is a 76 y.o. male. Patient completed hemodialysis yesterday without significant complications. Overnight, he was mostly on between 3 and 3.5 L/min O2. This morning, he denied shortness of breath at rest. He feels close to baseline overall, although he is having some shortness of breath with exertion. He has continued to have an intermittently productive cough, though denies significant sputum production, hemoptysis, or night sweats. He reports shortness of breath with exertion but not at rest. Additionally, he denies fever, chills, chest pain, abdominal pain, constipation, diarrhea, changes in urination, extremity edema. Medications Scheduled Meds: albuterol 0.5% (PROVENTIL; VENTOLIN) nebulizer solution 2.5 mg 2.5 mg Inhalation BID & PRN amLODIPine (NORVASC) tablet 10 mg 10 mg Oral QDAY aspirin chewable tablet 81 mg 81 mg Oral QDAY atorvastatin (LIPITOR) tablet 10 mg 10 mg Oral QDAY doxazosin (CARDURA) tablet 2 mg 2 mg Oral QDAY everolimus (immunosuppressive) (ZORTRESS) tablet 1 mg 1 mg Oral BID heparin (porcine) PF syringe 5,000 Units 5,000 Units Subcutaneous Q8H ipratropium bromide (ATROVENT) 0.02 % nebulizer solution 0.5 mg 0.5 mg Inhalation BID & PRN oxybutynin XL (DITROPAN XL) tablet 5 mg 5 mg Oral QDAY pantoprazole DR (PROTONIX) tablet 40 mg 40 mg Oral QDAY(21) sevelamer carbonate (RENVELA) tablet 800 mg 800 mg Oral TID w/ meals tacrolimus (PROGRAF) capsule 0.5 mg 0.5 mg Oral BID Continuous Infusions: PRN and Respiratory Meds: Review of Systems: Constitutional: Denies fever and chills. Respiratory: Endorses shortness of breath with exertion and cough. Denies shortness of breath at rest. Objective: Vital Signs: Last Filed Vital Signs: 24 Hour Range BP: 123/59 (09/03 715) Temp: 36.6 C (97.9 F) (09/03 715) Pulse: 77 (09/03 715) Respirations: 18 PER MINUTE (09/03 1123) SpO2: 92 % (09/03 715) O2 Delivery: Nasal Cannula (09/03 1123) BP: (109-139)/(49-86) Temp: [36.2 C (97.2 F)-37.1 C (98.7 F)] Pulse: [68-83] Respirations: [17 PER MINUTE-24 PER MINUTE] SpO2: [92 %-95 %] O2 Delivery: Nasal Cannula Intensity Pain Scale 0-10 (Pain 1): Asleep (09/02/17 0410) Vitals: 08/31/17 2045 09/01/17 2145 Weight: 92.3 kg (203 lb 7.8 oz) 91.3 kg (201 lb 4.5 oz) Intake/Output Summary: (Last 24 hours) Intake/Output Summary (Last 24 hours) at 09/02/17 1235 Last data filed at 09/02/17 0920 Gross per 24 hour Intake 1320 ml Output 1300 ml Net 20 ml Stool Occurrence: 1 Physical Exam General: Alert, cooperative, elderly male, lying in bed in no apparent distress. HEENT: Atraumatic, normocephalic. Heart: Regular rate and rhythm without murmur. Lungs: Clear to auscultation bilaterally without wheeze, rhonchi, or rales. Abdomen: Soft, non-distended. Bowel sounds auscultated throughout. Non-tender to palpation. No masses or organomegaly. Extremities: No clubbing, cyanosis, or edema. Lab Review 24-hour labs: Results for orders placed or performed during the hospital encounter of (from the past 24 hour(s)) CBC AND DIFF Collection Time: 09/02/17 5:51 AM Result Value Ref Range White Blood Cells 5.2 4.5 - 11.0 K/UL RBC 3.91 (L) 4.4 - 5.5 M/UL Hemoglobin 10.0 (L) 13.5 - 16.5 GM/DL Hematocrit 29.6 (L) 40 - 50 % MCV 75.8 (L) 80 - 100 FL MCH 25.7 (L) 26 - 34 PG MCHC 33.9 32.0 - 36.0 G/DL RDW 20.2 (H) 11 - 15 % Platelet Count 255 150 - 400 K/UL MPV 6.8 (L) 7 - 11 FL Neutrophils 79 (H) 41 - 77 % Lymphocytes 10 (L) 24 - 44 % Monocytes 8 4 - 12 % Eosinophils 2 0 - 5 % Basophils 1 0 - 2 % Absolute Neutrophil Count 4.10 1.8 - 7.0 K/UL Absolute Lymph Count 0.50 (L) 1.0 - 4.8 K/UL Absolute Monocyte Count 0.40 0 - 0.80 K/UL Absolute Eosinophil Count 0.10 0 - 0.45 K/UL Absolute Basophil Count 0.00 0 - 0.20 K/UL COMPREHENSIVE METABOLIC PANEL Collection Time: 09/02/17 5:51 AM Result Value Ref Range Sodium 136 (L) 137 - 147 MMOL/L Potassium 3.8 3.5 - 5.1 MMOL/L Chloride 98 98 - 110 MMOL/L Glucose 97 70 - 100 MG/DL Blood Urea Nitrogen 15 7 - 25 MG/DL Creatinine 5.69 (H) 0.4 - 1.24 MG/DL Calcium 10.8 (H) 8.5 - 10.6 MG/DL Total Protein 6.7 6.0 - 8.0 G/DL Total Bilirubin 0.4 0.3 - 1.2 MG/DL Albumin 3.4 (L) 3.5 - 5.0 G/DL Alk Phosphatase 61 25 - 110 U/L AST (SGOT) 10 7 - 40 U/L CO2 28 21 - 30 MMOL/L ALT (SGPT) 8 7 - 56 U/L Anion Gap 10 3 - 12 eGFR Non 10 (L) >60 mL/min eGFR 12 (L) >60 mL/min TACROLIMUS LEVEL(FK506) Collection Time: 09/02/17 5:51 AM Result Value Ref Range Tacrolimus 5.3 2 - 15 NG/ML EVEROLIMUS BLOOD Collection Time: 09/02/17 5:51 AM Result Value Ref Range Everolimus 10.6 (H) 3 - 10 ng/mL PROTIME INR (PT) Collection Time: 09/02/17 5:51 AM Result Value Ref Range INR 1.1 0.8 - 1.2 Point of Care Testing (Last 24 hours) Glucose: 97 (09/02/17 0551) Radiology and other Diagnostics Review: Pertinent radiology reviewed. Associated attestation - Margi Kiser MD - 09/02/2017 4:59 PM CDT I personally performed the yeh portions of the E/M visit, discussed case with Med II team and Dr Tavares concur with his documentation of history, physical exam, assessment, and treatment plan unless otherwise outlined with my notations. Discussed with Dr Brock - recommended decreasing Tacrolimus to 0.5 mg BID from 1 mg BID and to 1 mg BID from 2 mg BID to attain trough drug levels of ~3 and ~ 5 respectively To get Pulmonary consult to re-evaluate and potentially repeat bronchoscopy. Margi Kiser MD Department of Internal Medicine, Hospitalist [phone] * Vika Becerra, RN - 09/01/2017 4:15 PM CDT Pt wanting to be switched to DNAR, M2 paged & aware of situation, will continue to monitor. * Enoch Tavares MD - 09/01/2017 6:22 AM CDT Formatting of this note may be different from the original. General Progress Note Name: Liz Hendricks Today's Date: 09/01/2017 Admission Date: 08/31/2017 LOS: 1 day Assessment/Plan: Active Problems: Liver transplanted (HCC) Immunosuppression (HCC) Acid-fast bacteria present Primary lung adenocarcinoma (HCC) ESRD (end stage renal disease) on dialysis (HCC) GERD (gastroesophageal reflux disease) Liz Hendricks is a 76 y.o. 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 Positive acid-fast bacteria culture Assessment Unclear significance at this point, it is certainly possible that this is only a MAC infection. - The patient is quite immunocompromised secondary to his immunosuppression for orthotopic liver transplant. - He does not have any risk factors for tuberculosis. - Symptomatically, the patient is relatively unchanged over the past several months since he was hospitalized for the pneumonia. Nevertheless, will be important to rule out active tuberculosis and further workup this finding. Plan Acid-fast bacteria sputum 3 Airborne precautions Hold on empiric antibiotics at this time Infectious disease consulted, appreciate recs - At the recommendation of ID, this author called the main [facility] phone number at in an attempt to ask for Tb and JERED PCR testing to be done on the sample from the patient's lung mass. This author was told that the [facility] lab is not open on weekends but will be open again on Sunday. This author left a request for a lab member to call the [facility] Med-2 team back on Sunday. History of orthotopic liver transplant Orthotopic liver transplant in 2012. --He has been immunosuppressed with tacrolimus and everolimus. This has been complicated by biliary stricture requiring stent. He follows with Dr. Regan Brock of our hepatology department here. Plan: We will obtain daily tacrolimus (goal ~3) and everolimus (goal ~5) levels Hepatology consulted, appreciate recs: Will adjust dosages of immunosuppressants based on levels. Daily INR. History of end-stage renal disease (secondary to immunosuppression) on Sunday, , Sunday dialysis Obtain basic labs upon arrival Nephrology consulted, appreciate recs: Patient to be dialyzed today. Start sevelamer 800 mg TID with meals for hyperphosphatemia. Check iron studies. Continue TRAFFIC OPERATOR phosphate binder Hypertension Continue TRAFFIC OPERATOR amlodipine and Cardura History of GERD Continue TRAFFIC OPERATOR pantoprazole FEN: Renal dialysis diet PPx: Heparin Code Status: DNAR-FI Disposition: Continue admission to inpatient internal medicine under care of the Med 2 team. Patient seen and discussed with Dr. Kiser. Enoch Tavares M.D. Internal Medicine/Psychiatry PGY-1 Pager: [phone] Subjective Liz Hendricks is a 76 y.o. male. Patient had no overnight events. He was on between 2 and 4 lpm of O2 via NC. This morning, he reported continued cough that has been intermittently productive. He denies hemoptysis. He reports shortness of breath with exertion but not at rest. Otherwise, he denies changes in appetite, fever, chills, chest pain, abdominal pain, constipation, diarrhea, changes in urination, lower extremity edema. Medications Scheduled Meds: albuterol 0.5% (PROVENTIL; VENTOLIN) nebulizer solution 2.5 mg 2.5 mg Inhalation BID & PRN amLODIPine (NORVASC) tablet 10 mg 10 mg Oral QDAY aspirin chewable tablet 81 mg 81 mg Oral QDAY atorvastatin (LIPITOR) tablet 10 mg 10 mg Oral QDAY doxazosin (CARDURA) tablet 2 mg 2 mg Oral QDAY everolimus (immunosuppressive) (ZORTRESS) tablet 2 mg 2 mg Oral BID heparin (porcine) PF syringe 5,000 Units 5,000 Units Subcutaneous Q8H ipratropium bromide (ATROVENT) 0.02 % nebulizer solution 0.5 mg 0.5 mg Inhalation BID & PRN oxybutynin XL (DITROPAN XL) tablet 5 mg 5 [address] Oral QDAY pantop[address]ole [address] (PROTONIX) tablet 40 mg 40 mg Oral QDAY(21) tacrolimus (PROGRAF) capsule 1 mg 1 mg Oral BID Continuous Infusions: PRN and Respiratory Meds: Review of Systems: Constitutional: Denies fever and chills. Endorses weight loss. Respiratory: Endorses shortness of breath with exertion and cough. Objective: Vital Signs: Last Filed Vital Signs: 24 Hour Range BP: 123/65 (08/31 2299) Temp: 36.7 C (98 F) (08/31 2299) Pulse: 77 (09/01 612) Respirations: 16 PER MINUTE (09/01 612) SpO2: 97 % (09/01 612) O2 Delivery: Nasal Cannula (08/31 2299) Height: 189 cm (74.4") (08/31 2044) BP: (123-127)/(65-69) Temp: [36.5 C (97.7 F)-36.7 C (98 F)] Pulse: [74-83] Respirations: [12 PER MINUTE-16 PER MINUTE] SpO2: [92 %-97 %] O2 Delivery: Nasal Cannula Vitals: 08/31/172044 Weight: 92.3 kg (203 lb 7.8 oz) Intake/Output Summary: (Last 24 hours) No intake or output data in the 24 hours ending 09/01/17622 Stool Occurrence: 1 Physical Exam General: Alert, cooperative, elderly male, lying in bed in no apparent distress. HEENT: Atraumatic, normocephalic. Heart: Regular rate and rhythm without murmur. Lungs: Clear to auscultation bilaterally without wheeze, rhonchi, or rales. Abdomen: Soft, non-distended. Bowel sounds auscultated throughout. Non-tender to palpation. No masses or organomegaly. Extremities: No clubbing, cyanosis, or edema. Lab Review 24-hour labs: Results for orders placed or performed during the hospital encounter of (from the past 24 hour(s)) CULTURE-BLOOD W/SENSITIVITY Collection Time: 08/31/17 6:15 PM Result Value Ref Range Battery Name BLOOD CULTURE Specimen Description BLOOD LEFT ANTECUBITAL aerobic bottle only Special Requests Culture performed on specimen with less than the recommended volume of 10 ml/bottle. Decreased volume will affect sensitivity of culture. Culture NO GROWTH 1 DAY Report Status CULTURE-BLOOD W/SENSITIVITY Collection Time: 08/31/17 6:30 PM Result Value Ref Range Battery Name BLOOD CULTURE Specimen Description BLOOD LEFT HAND Special Requests NONE Culture NO GROWTH 1 DAY Report Status COMPREHENSIVE METABOLIC PANEL Collection Time: 08/31/17 6:30 PM Result Value Ref Range Sodium 134 (L) 137 - 147 MMOL/L Potassium 3.4 (L) 3.5 - 5.1 MMOL/L Chloride 94 (L) 98 - 110 MMOL/L Glucose 98 70 - 100 MG/DL Blood Urea Nitrogen 29 (H) 7 - 25 MG/DL Creatinine 8.42 (H) 0.4 - 1.24 MG/DL Calcium 10.3 8.5 - 10.6 MG/DL Total Protein 6.2 6.0 - 8.0 G/DL Total Bilirubin 0.3 0.3 - 1.2 MG/DL Albumin 3.4 (L) 3.5 - 5.0 G/DL Alk Phosphatase 56 25 - 110 U/L AST (SGOT) 13 7 - 40 U/L CO2 28 21 - 30 MMOL/L ALT (SGPT) 9 7 - 56 U/L Anion Gap 12 3 - 12 eGFR Non 6 (L) >60 mL/min eGFR 8 (L) >60 mL/min CBC AND DIFF Collection Time: 08/31/17 6:30 PM Result Value Ref Range White Blood Cells 5.7 4.5 - 11.0 K/UL RBC 3.35 (L) 4.4 - 5.5 M/UL Hemoglobin 8.6 (L) 13.5 - 16.5 GM/DL Hematocrit 25.8 (L) 40 - 50 % MCV 77.0 (L) 80 - 100 FL MCH 25.6 (L) 26 - 34 PG MCHC 33.2 32.0 - 36.0 G/DL RDW 21.0 (H) 11 - 15 % Platelet Count 235 150 - 400 K/UL MPV 6.6 (L) 7 - 11 FL Neutrophils 79 (H) 41 - 77 % Lymphocytes 11 (L) 24 - 44 % Monocytes 9 4 - 12 % Eosinophils 1 0 - 5 % Basophils 0 0 - 2 % Absolute Neutrophil Count 4.50 1.8 - 7.0 K/UL Absolute Lymph Count 0.60 (L) 1.0 - 4.8 K/UL Absolute Monocyte Count 0.50 0 - 0.80 K/UL Absolute Eosinophil Count 0.10 0 - 0.45 K/UL Absolute Basophil Count 0.00 0 - 0.20 K/UL MAGNESIUM Collection Time: 08/31/17 6:30 PM Result Value Ref Range Magnesium 2.0 1.6 - 2.6 mg/dL PHOSPHORUS Collection Time: 08/31/17 6:30 PM Result Value Ref Range Phosphorus 6.6 (H) 2.0 - 4.0 MG/DL PROTIME INR (PT) Collection Time: 08/31/17 7:07 PM Result Value Ref Range INR 1.1 0.8 - 1.2 PTT (APTT) Collection Time: 08/31/17 7:07 PM Result Value Ref Range APTT 27.7 21.0 - 39.0 SEC CBC AND DIFF Collection Time: 09/01/17 8:00 AM Result Value Ref Range White Blood Cells 4.9 4.5 - 11.0 K/UL RBC 3.42 (L) 4.4 - 5.5 M/UL Hemoglobin 8.6 (L) 13.5 - 16.5 GM/DL Hematocrit 26.2 (L) 40 - 50 % MCV 76.6 (L) 80 - 100 FL MCH 25.0 (L) 26 - 34 PG MCHC 32.6 32.0 - 36.0 G/DL RDW 20.2 (H) 11 - 15 % Platelet Count 245 150 - 400 K/UL MPV 6.1 (L) 7 - 11 FL Neutrophils 78 (H) 41 - 77 % Lymphocytes 14 (L) 24 - 44 % Monocytes 7 4 - 12 % Eosinophils 1 0 - 5 % Basophils 0 0 - 2 % Absolute Neutrophil Count 3.90 1.8 - 7.0 K/UL Absolute Lymph Count 0.70 (L) 1.0 - 4.8 K/UL Absolute Monocyte Count 0.30 0 - 0.80 K/UL Absolute Eosinophil Count 0.00 0 - 0.45 K/UL Absolute Basophil Count 0.00 0 - 0.20 K/UL COMPREHENSIVE METABOLIC PANEL Collection Time: 09/01/17 8:00 AM Result Value Ref Range Sodium 135 (L) 137 - 147 MMOL/L Potassium 3.1 (L) 3.5 - 5.1 MMOL/L Chloride 95 (L) 98 - 110 MMOL/L Glucose 112 (H) 70 - 100 MG/DL Blood Urea Nitrogen 34 (H) 7 - 25 MG/DL Creatinine 9.32 (H) 0.4 - 1.24 MG/DL Calcium 10.7 (H) 8.5 - 10.6 MG/DL Total Protein 6.3 6.0 - 8.0 G/DL Total Bilirubin 0.3 0.3 - 1.2 MG/DL Albumin 3.2 (L) 3.5 - 5.0 G/DL Alk Phosphatase 61 25 - 110 U/L AST (SGOT) 11 7 - 40 U/L CO2 27 21 - 30 MMOL/L ALT (SGPT) 8 7 - 56 U/L Anion Gap 13 (H) 3 - 12 eGFR Non 6 (L) >60 mL/min eGFR 7 (L) >60 mL/min Point of Care Testing (Last 24 hours) Glucose: 98 (08/31/17 1830) Radiology and other Diagnostics Review: Pertinent radiology reviewed. Associated attestation - Margi Kiser MD - 09/01/2017 5:05 PM CDT I personally performed the yeh portions of the E/M visit, discussed case with Med II team and Dr Tavares concur with his documentation of history, physical exam, assessment, and treatment plan unless otherwise outlined with my notations. A 76 y/o M admitted as a transfer for work up and management of acid fast on a biopsy specimen on a background of immunosuppression for OLT( done SUAREZ/ Acloholic cirrhosis), ESRD on HD, and new diagnosis of Adenocarcinoma of Lung. Currently on isolation reverse until type and sensitivities of acid fast bacilli is ascertained. It could be most likely JERED as Mycobacterium Tuberculosis with no known risk factors for it. ID consulted In regards to his OLT ( SUAREZ/Alcoholic liver disease related cirrhosis) - on Immunosuppression ( Tacrolimus and Everolimus) which will need to be adjusted in light of his current infection and new diagnosis of adenocarcinoma of the lung. Hepatology consulted for making adjustments but appears to be stable otherwise. Discussed with Nephrology attending - Dr Collier who stated that HD is planned for today. Other details as noted in Dr Tavares's note Margi Kiser MD Department of Internal Medicine, Hospitalist [phone] * ИванIsaac RT - 08/31/2017 11:40 PM CDT Formatting of this note may be different from the original. RESPIRATORY THERAPY ADULT PROTOCOL EVALUATION RESPIRATORY PROTOCOL PLAN Medications Albuterol/Ipratropium: Neb BID;Neb PRN Note: If indicated by protocol, medication orders will be placed by therapist. Procedures PAP: Place a nursing order for "IS Q1h While Awake" for any of Lung Expansion indicators Oxygen/Humidity: O2 to keep SpO2 > 92% Monitoring: Pulse oximetry continuous during night/sleep PATIENT EVALUATION RESULTS Chart Review * Pulmonary Hx: Hx pulmonary disease, hx reactive or obstructive airway disease (PEFR & AM) OR regular home use of bronchodilators (AM) OR inhaled or systemic steroid use for lungs < or equal to 4 times/yr (AM) * Surgical Hx: No surgery OR last surgery > 6 weeks ago OR trach/stoma (BA) * Chest X-Ray: Clear OR not available * PFT/Oxygenation: FEV1, PEFR < 70% OR Pa02 < 70 RA OR Sp02 <92% RA OR Fi02 > 0.21 to keep Sp02 > 92% OR < 24 hours post-op (02 & oxim) OR chronic C02 retention (C02) Patient Assessment * Respiratory Pattern: Regular pattern and rate OR good chest excursion with deep breathing * Breath Sounds: Clear apically, but diminished in bases (LE) OR CHF related crackles (02) (oximetry) * Cough / Sputum: Strong, effective cough OR nonproductive * Mental Status: Alert, oriented, cooperative * Activity Level: Ambulatory with assistance Priority Index Total Points: 7 Points * Priority Index: 1+ PRIORITY INDEX GUIDELINES* Priority Points 1 0-9 points 2 9-18 points 3 > 18 points + Pulm Dx or Home Rx *Higher points indicate higher acuity. Therapist: Isaac Oates, RT Date: 08/31/2017 Yeh AC=Airway clearance AM=Aerosolized medication BA=[place] aerosol DB&C=Deep breathe & cough FEV1=Forced expiratory volume in first second) IC=Inspiratory capacity LE=Lung expansion MDI=Metered dose inhaler Neb=Nebulizer O2=Oxygen Oxim=Oximetry PEFR=Peak expiratory flow rate [employer] ASSEMBLER=Rapid Response Team * Lev Geller RN - 08/31/2017 6:39 PM CDT Peripheral blood cultures x [address] in [address]. * Philly Bravo RN - 08/31/2017 3:55 PM CDT Patient arrived to room # 6213 via cart accompanied by transport. Patient transferred to the bed with assistance. Bedside safety checks completed. Initial patient assessment completed, refer to flowsheet for details. Admission skin assessment completed by: Urszula Hillman Pressure Injury Present on Hospital Admission (within 24 hours): No 1. Occiput: No 2. Ear: No 3. Scapula: No 4. Spinous Process: No 5. Shoulder: No 6. Elbow: No 7. Iliac Crest: No 8. Sacrum/Coccyx: No 9. Ischial Tuberosity: No 10. Trochanter: No 11. Knee: No 12. Malleolus: No 13. Heel: No 14. Toes: No 15. Assessed for device associated injury Yes 16. Nursing Nutrition Assessment Completed Yes See Doc Flowsheet for additional wound details. INTERVENTIONS: in this encounter H&P Notes * Ananth Calvin MD - 09/06/2017 2:00 PM CDT Formatting of this note may be different from the original. Pre Procedure History and Physical/Sedation Plan Name:Liz Hendricks :1940 Age: 76 y.o. Admission Date: 08/31/2017 Days Admitted: LOS: 6 days Procedure Date: 09/06/2017 Planned Procedure(s): Pulmonary: biopsy (transbronchial) and bronchial alveolar lavage Sedation/Medication Plan: General Anesthesia Discussion/Reviews: Physician has discussed risks and alternatives of this type of sedation and above planned procedures with patient ATTESTATION I personally performed the yeh portions of the E/M visit, discussed case with Dr. Irvin, [facility] fellow and concur with our fellow's documentation of history, physical exam, assessment, and treatment plan unless otherwise noted. Staff name: Ananth Calvin MD Date: 09/06/2017 Chief Complaint: Inpatient endo consult note reviewed. ESLD s/p transplant, ESRD on immunosuppression and adenocarcinoma of lung is seen for bronchoscopy with BAL and TBB of RLL. Previous Anesthetic/Sedation History: Per anesthesia Allergies: Adhesive Medications: Scheduled Meds: [JUL Hold] albuterol 0.5% (PROVENTIL; VENTOLIN) nebulizer solution 2.5 mg 2.5 mg Inhalation BID & PRN [JUL Hold] amLODIPine (NORVASC) tablet 10 mg 10 mg Oral QDAY [JUL Hold] aspirin chewable tablet 81 mg 81 mg Oral QDAY [JUL Hold] atorvastatin (LIPITOR) tablet 10 mg 10 mg Oral QDAY [JUL Hold] doxazosin (CARDURA) tablet 2 mg 2 mg Oral QDAY [JUL Hold] escitalopram oxalate (LEXAPRO) tablet 10 mg 10 mg Oral QDAY [JUL Hold] everolimus (immunosuppressive) (ZORTRESS) tablet 1 mg 1 mg Oral BID [JUL Hold] ipratropium bromide (ATROVENT) 0.02 % nebulizer solution 0.5 mg 0.5 mg Inhalation BID & PRN [JUL Hold] oxybutynin XL (DITROPAN XL) tablet 10 mg 10 mg Oral QHS [JUL Hold] pantoprazole DR (PROTONIX) tablet 40 mg 40 mg Oral QDAY(21) piperacillin/tazobactam (ZOSYN) 2.25 g/50 mL iso-osmotic IVPB 2.25 g Intravenous Q8H* [Jul] sevelamer carbonate (RENVELA) tablet 800 mg 800 mg Oral TID w/ meals [JUL Hold] tacrolimus (PROGRAF) capsule 0.5 mg 0.5 mg Oral BID vancomycin, pharmacy to manage 1 each Service Per Pharmacy vancomycin, random dosing 1 each Intravenous Random Dosing Continuous Infusions: PRN and Respiratory Meds:[JUL Hold] acetaminophen Q4H PRN, [JUL Hold] ondansetron Q6H PRN, [JUL Hold] sodium chloride 0.9% (NS) IP Dialysis PRN, [JUL Hold] sodium chloride 0.9% (NS) IP Dialysis PRN, [JUL Hold] sodium chloride 0.9 % (NS) IP Dialysis PRN Vital Signs: Last Filed Vital Signs: 24 Hour Range BP: 117/50 (09/06 1041) Temp: 37.2 C (99 F) (09/06 1041) Pulse: 80 (09/06 1041) Respirations: 16 PER MINUTE (04/12 1042) SpO2: 93 % (09/06 1042) O2 Delivery: Nasal Cannula (09/06 1041) BP: (115-133)/(49-71) Temp: [36.7 C (98.1 F)-37.2 C (99 F)] Pulse: [76-84] Respirations: [16 PER MINUTE-19 PER MINUTE] SpO2: [91 %-99 %] O2 Delivery: Nasal Cannula NPO Status: Airway: per anesthesia Anesthesia Classification: ASA IV (A patient with an incapacitating systemic disease that is a constant threat to life) NPO Status: Acceptable Preganancy Status: N/A Lab/Radiology/Other Diagnostic Tests Labs: Relevant labs reviewed Ebenezer Irvin MD Pager [phone] * Kris Escobar APRN-STAIN SPRAYER - 09/04/2017 3:06 PM CDT Formatting of this note may be different from the original. Pre Procedure History and Physical/Sedation Plan Procedure Date: 09/04/2017 Planned Procedure(s): Tunneled, non-cuffed, double lumen CVC placement Chief Complaint: Lung cancer Previous Anesthetic/Sedation History: Denies adverse events r/t sedation/ anesthesia. Allergies: Adhesive Medications: Scheduled Meds: albuterol 0.5% (PROVENTIL; VENTOLIN) nebulizer solution 2.5 mg 2.5 mg Inhalation BID & PRN amLODIPine (NORVASC) tablet 10 mg 10 mg Oral QDAY aspirin chewable tablet 81 mg 81 mg Oral QDAY atorvastatin (LIPITOR) tablet 10 mg 10 mg Oral QDAY doxazosin (CARDURA) tablet 2 mg 2 mg Oral QDAY escitalopram oxalate (LEXAPRO) tablet 10 mg 10 mg Oral QDAY everolimus (immunosuppressive) (ZORTRESS) tablet 1 mg 1 mg Oral BID heparin (porcine) PF syringe 5,000 Units 5,000 Units Subcutaneous Q8H ipratropium bromide (ATROVENT) 0.02 % nebulizer solution 0.5 mg 0.5 mg Inhalation BID & PRN oxybutynin XL (DITROPAN XL) tablet 10 mg 10 mg Oral [address]HS pantoprazole DR (PROTONIX) tablet 40 mg 40 mg Oral QDAY(21) piperacillin/tazobactam (ZOSYN) 2.25 g/50 mL iso-osmotic IVPB 2.25 g Intravenous Q8H* sevelamer carbonate (RENVELA) tablet 800 mg 800 mg Oral TID w/ meals tacrolimus (PROGRAF) capsule 0.5 mg 0.5 mg Oral BID vancomycin, pharmacy to manage 1 each Service Per Pharmacy vancomycin, random dosing 1 each Intravenous Random Dosing Continuous Infusions: PRN and Respiratory Meds:acetaminophen Q4H PRN, ondansetron Q6H PRN, sodium chloride PRN Vital Signs: Last Filed Vital Signs: 24 Hour Range BP: 110/51 (09/04 115) Temp: 37.2 C (98.9 F) (09/04 115) Pulse: 85 (09/04 1156) Respirations: 20 PER MINUTE (09/04 115) SpO2: 94 % (09/04 115) O2 Delivery: Nasal Cannula (09/04 0900) BP: (109-160)/(51-72) Temp: [37 C (98.6 F)-38.4 C (101.1 F)] Pulse: [80-117] Respirations: [18 PER MINUTE-26 PER MINUTE] SpO2: [81 %-95 %] O2 Delivery: Nasal Cannula Sedation/Medication Plan: Conscious sedation Personal history of sedation complications: Denies adverse event. Family history of sedation complications: Denies adverse event. Medications for Reversal: Naloxone and Flumazenil Discussion/Reviews: Physician has discussed risks and alternatives of this type of sedation and above planned procedures with patient NPO Status: Acceptable Airway: airway assessment performed Mallampati II (soft palate, uvula, fauces visible) Head and Neck: no abnormalities noted Mouth: no abnormalities noted Anesthesia Classification: ASA III (A patient with a severe systemic disease that limits activity, but is not incapacitating) Status: N/A Lab/Radiology/Other Diagnostic Tests Labs: 24-hour labs: Results for orders placed or performed during the hospital encounter of (from the past 24 hour(s)) POC BLOOD GAS ARTERIAL Collection Time: 09/04/17 5:30 AM Result Value Ref Range PH-ART-POC 7.51 (H) 7.35 - 7.45 MFE2-ADC-CRL 38 35 - 45 MMHG PO2-ART-POC 55 (L) 80 - 100 MMHG Base Ex-ART-POC 8.0 MMOL/L O2 Sat-ART-POC 91.0 (L) 95 - 99 % Hbniqavhsec-PUD-RSX 30.7 (H) 21 - 28 MMOL/L POC HEMATOCRIT Collection Time: 09/04/17 5:30 AM Result Value Ref Range Hemoglobin POC 12.6 (L) 13.5 - 16.5 GM/DL Hematocrit POC 37.0 (L) 40 - 50 % POC POTASSIUM Collection Time: 09/04/17 5:30 AM Result Value Ref Range Potassium-POC 4.3 3.5 - 5.1 MMOL/L POC SODIUM Collection Time: 09/04/17 5:30 AM Result Value Ref Range Sodium-POC 137 137 - 147 MMOL/L POC IONIZED CALCIUM Collection Time: 09/04/17 5:30 AM Result Value Ref Range Ionized Calcium-POC 1.35 (H) 1.0 - 1.3 MMOL/L CBC Collection Time: 09/04/17 5:35 AM Result Value Ref Range White Blood Cells 7.3 4.5 - 11.0 K/UL RBC 3.57 (L) 4.4 - 5.5 M/UL Hemoglobin 9.2 (L) 13.5 - 16.5 GM/DL Hematocrit 27.3 (L) 40 - 50 % MCV 76.6 (L) 80 - 100 FL MCH 25.7 (L) 26 - 34 PG MCHC 33.5 32.0 - 36.0 G/DL RDW 20.8 (H) 11 - 15 % Platelet Count 245 150 - 400 K/UL MPV 6.3 (L) 7 - 11 FL PROTIME INR (PT) Collection Time: 09/04/17 5:35 AM Result Value Ref Range INR 1.1 0.8 - 1.2 PTT (APTT) Collection Time: 09/04/17 5:35 AM Result Value Ref Range APTT 28.1 21.0 - 39.0 SEC COMPREHENSIVE METABOLIC PANEL Collection Time: 09/04/17 5:35 AM Result Value Ref Range Sodium 141 137 - 147 MMOL/L Potassium 4.6 3.5 - 5.1 MMOL/L Chloride 103 98 - 110 MMOL/L Glucose 107 (H) 70 - 100 MG/DL Blood Urea Nitrogen 16 7 - 25 MG/DL Creatinine 5.05 (H) 0.4 - 1.24 MG/DL Calcium 11.1 (H) 8.5 - 10.6 MG/DL Total Protein 6.7 6.0 - 8.0 G/DL Total Bilirubin 0.4 0.3 - 1.2 MG/DL Albumin 3.6 3.5 - 5.0 G/DL Alk Phosphatase 60 25 - 110 U/L AST (SGOT) 11 7 - 40 U/L CO2 28 21 - 30 MMOL/L ALT (SGPT) 6 (L) 7 - 56 U/L Anion Gap 10 3 - 12 eGFR Non 11 (L) >60 mL/min eGFR 14 (L) >60 mL/min TROPONIN-I Collection Time: 09/04/17 5:35 AM Result Value Ref Range Troponin-I 0.01 0.0 - 0.05 NG/ML LACTIC ACID (BG - RAPID LACTATE) Collection Time: 09/04/17 5:35 AM Result Value Ref Range Lactic Acid,BG 1.2 0.5 - 2.0 MMOL/L MAGNESIUM Collection Time: 09/04/17 5:35 AM Result Value Ref Range Magnesium 1.9 1.6 - 2.6 mg/dL PHOSPHORUS Collection Time: 09/04/17 5:35 AM Result Value Ref Range Phosphorus 3.5 2.0 - 4.0 MG/DL POC GLUCOSE Collection Time: 09/04/17 5:35 AM Result Value Ref Range Glucose, POC 109 (H) 70 - 100 MG/DL D-DIMER Collection Time: 09/04/17 5:35 AM Result Value Ref Range D-Dimer 1,289 (H) <500 ng/mL FEU I have examined the patient, and there are no significant changes in their condition, from the previous H&P performed on 09/03/17. Kris Escobar APRN-STAIN SPRAYER Pager [phone] * Herve Chan MD - 08/31/2017 5:44 PM CDT Formatting of this note may be different from the original. Admission History and Physical Examination Name: Liz Hendricks Admission Date: 08/31/2017 Assessment/Plan: Active Problems: Liver transplanted (HCC) Immunosuppression (HCC) Acid-fast bacteria present Primary lung adenocarcinoma (HCC) ESRD (end stage renal disease) on dialysis (HCC) GERD (gastroesophageal reflux disease) Positive acid-fast bacteria culture Assessment Unclear significance at this point, it is certainly possible that this is only a MAC infection. The patient is quite immunocompromised secondary to his immunosuppression for orthotopic liver transplant. He does not have any risk factors for tuberculosis. Symptomatically, the patient is relatively unchanged over the past several months since he was hospitalized for the pneumonia. Nevertheless, will be important to rule out active tuberculosis and further workup this finding. Plan Acid-fast bacteria sputum 3 airborne precaution Hold on empiric antibiotics at this time Infectious disease consult History of orthotopic liver transplant Orthotopic liver transplant in 2012. He has been immunosuppressed with tacrolimus and everolimus. This has been complicated by biliary stricture requiring stent. He follows with Dr. Regan Brock of our hepatology department here. We will obtain daily tacrolimus and everolimus levels Hepatology consult to advise on immunosuppression in the setting of acid- fast infection History of end-stage renal disease (secondary to immunosuppression) on Sunday, , Sunday dialysis Obtain basic labs upon arrival Nephrology consult in AM Continue TRAFFIC OPERATOR phosphate binder Hypertension Continue TRAFFIC OPERATOR amlodipine and Cardura History of GERD Continue TRAFFIC OPERATOR pantoprazole FEN: Regular diet PPx: Heparin Code Status: DNAR-FI Disposition: Admit to inpatient internal medicine under care of the med 2 team. Patient seen and discussed with attending recreational therapy aide, Dr. Mendoza This note was composed with assistance of [employer] Dictation software. There may be dictation errors. Primary Care Physician: Faizan Lin Chief Complaint: Positive acid-fast bacteria culture History of Present Illness: Liz Hendricks is a 76 y.o. 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 Approximately 2 months ago, the patient was hospitalized at an outside facility for pneumonia. During the hospitalization, the patient underwent bronchoscopy which showed a mass. Biopsies were taken of the mass showing adenocarcinoma. He had been planned to follow-up at [facility] oncology as an outpatient. The patient was discharged to a prison facility at that time. He continues to live there now. At the time of biopsy, they also obtain acid-fast bacteria cultures which turned positive today. Infectious disease at our facility was contacted and the patient was accepted for admission to general internal medicine. Additionally, the patient reports feeling generally unchanged over the past couple weeks. He states that he does have significant weakness due to not doing anything. He reports a 30 pound weight loss over the last 10 weeks. He reports a cough that is worse when he lies down. He denies any production of sputum or hemoptysis. He denies ever being incarcerated. He denies any significant travel. He denies any exposures to TB. Past Medical History: Diagnosis Date Arthritis Ascites Basal cell carcinoma CKD (chronic kidney disease) 06/06/2012 COPD (chronic obstructive pulmonary disease) (HCC) Dialysis patient (HCC) M-W-F Edema End-stage liver disease (HCC) Gastrointestinal disorder GERD (gastroesophageal reflux disease) Hepatic encephalopathy (HCC) 07/25/2012 History of alcohol abuse 08/02/2012 History of esophageal varices 08/02/2012 Hypertension 08/02/2012 Murmur Pancreatitis 2014 Personal history of ascites 06/06/2012 Squamous cell carcinoma Transplant Liver Type II diabetes mellitus (HCC) 08/02/2012 Past Surgical History: Procedure Laterality Date COLONOSCOPY 10/2010 HX ENDOSCOPY 10/2011 HERNIA REPAIR Right 2013 right inguinal hernia repair TRANSPLANT 01/06/13 liver transplant SURGERY 2014 biliary stents placed then removed HX JOINT REPLACEMENT Right 02/03/15 ID ARVEN ANAST OPN UPR ARM BASILIC VEIN TRPOS Right 12/21/2015 CREATION RADIOCEPHALIC ARTERIOVENOUS FISTULA performed by Fortino Hamm [facility] ID ADJT TIS TRNS/REARGMT F/C/C/M/N/A/G/H/F 10SQCM/< Right 04/07/2016 MOHS CLOSURE RIGHT LATERAL SCALP WITH LOCAL TISSUE REARRANGEMENT 15CM performed by Norris Henriquez MD at [facility] OR[facility] SKIN GRAFT N/A 01/26/2017 LOCAL TISSUE TRANSFER TO SCALP VERTEX performed by Norris Henriquez MD at [facility] COLONOSCOPY PLANTAR FASCIA SURGERY Bilateral Family History Problem Relation Age of Onset Cancer Mother Breast cancer. Basal Cell Carcinoma Father Melanoma Neg Hx Social History Social History Marital status: Spouse name: N/A Number of children: N/A Years of education: N/A Social History Main Topics Smoking status: Former Smoker Packs/day: 2.00 Years: 30.00 Quit date: 05/28/1988 Smokeless tobacco: Never Used Alcohol use No Comment: None since 2009 Drug use: No Sexual activity: Not on file Other Topics Concern Not on file Social History Narrative No narrative on file Immunizations (includes history and patient reported): Immunization History Administered Date(s) Administered Flu Vaccine=>5 YO (Historical) 02/19/2015 Pneumococcal Vaccine (23-Leia Adult) 02/19/2015 Allergies: Adhesive Medications: Prescriptions Prior to Admission Medication Sig amLODIPine (NORVASC) 10 mg tablet TAKE ONE TABLET BY MOUTH DAILY aspirin 81 mg chewable tablet Take 1 Tab by mouth daily. atorvastatin (LIPITOR) 10 mg tablet 1 Tab daily. calcium carbonate (OS-RANJIT) 1250 mg tablet Take 1,250 mg by mouth daily. cefdinir (OMNICEF) 300 mg capsule Take 300 mg by mouth every 12 hours. doxazosin (CARDURA) 2 mg tablet Take 1 Tab by mouth daily. everolimus (immunosuppressive) (ZORTRESS) 0.5 mg tablet Take 1.5 mg by mouth twice daily. oxybutynin XL (DITROPAN XL) 5 mg tablet Take 5 mg by mouth daily. pantoprazole DR (PROTONIX) 40 mg tablet TAKE ONE TABLET BY MOUTH DAILY tacrolimus (PROGRAF) 1 mg capsule Take 1 capsule by mouth twice daily. tamsulosin (FLOMAX) 0.4 mg capsule TAKE ONE CAPSULE BY MOUTH DAILY AFTER BREAKFAST traMADol (ULTRAM) 50 mg tablet Take 1 Tab by mouth every 8 hours as needed for Pain. zinc sulfate 220 mg (50 mg elemental zinc) capsule Take 220 mg by mouth daily. Review of Systems: A 14 point review of systems was obtained and is negative except for: Occasional tremor Physical Exam: Vital Signs: Last Filed In 24 Hours Vital Signs: 24 Hour Range BP: 127/69 (08/31 1556) Temp: 36.5 C (97.7 F) (08/31 1556) Pulse: 75 (08/31 1556) Respirations: 12 PER MINUTE (08/31 1556) SpO2: 93 % (08/31 1556) O2 Delivery: Nasal Cannula (09/01 1555) BP: (127)/(69) Temp: [36.5 C (97.7 F)] Pulse: [75] Respirations: [12 PER MINUTE] SpO2: [93 %] O2 Delivery: Nasal Cannula General: Alert. No acute distress HEENT: NCAT. Moist mucous membranes. Lungs: Clear to auscultation bilaterally with good air movement. No wheezes/ crackles/rhonchi Cardiac: Regular rate and rhythm with no murmur/rub/gallop Abdomen: Large scar consistent with prior liver transplant Extremities: Bilateral lower extremities without swelling/erythema Neuro: Cranial nerves grossly intact. Moves all extremities spontaneously Psych: Pleasant and cooperative Lab/Radiology/Other Diagnostic Tests: 24-hour labs: No results found for this visit on 08/31/17 (from the past 24 hour(s)). Herve Chan MD Pager [phone] Associated attestation - Alia Mendoza MD - 08/31/2017 8:39 PM CDT Formatting of this note may be different from the original. ATTESTATION I personally performed the yeh portions of the E/M visit, discussed case with resident and concur with resident documentation of history, physical exam, assessment, and treatment plan unless otherwise noted. Staff name: Alia Mendoza MD Date: 08/31/2017 in this encounter Procedure Notes * Sarahi Yañez RN - 09/14/2017 8:42 AM CDT Associated Order(s): HEMODIALYSIS INPATIENT; HEMODIALYSIS DATE 07 - Initiated HD treatment in [facility] 1. Ordered is a 4 hour treatment with a UF goal of 2 Liters. Stat k+ level drawn and sent prior to start of tx since there were no results in 02 since 09/12. Right FA fistula accessed without difficulty and treatment running well. Dr. Alvarado paged. 1100 - Treatment complete. Pressure held on needle sites for about 10 minutes each site until hemostasis achieved and report called to primary RN. Net UF - 2 Liters. Patient tolerated well. * Bernadette Ramirez RN - 09/12/2017 7:56 AM CDT Associated Order(s): HEMODIALYSIS INPATIENT; HEMODIALYSIS DATE; HEMODIALYSIS DATE 644 Pt arrived in bay 8 via bed. Report received from KIERSTEN Encarnacion. Pt connected to high flow O2 @ 8L/min to achieve O2sat of 97. Pt connected to monitor for VS,Resp., O2sats and cardiac rhythm set to register every 30 min. Signed consent for HD TX in chart. Verified correct Pt,meds,procedure and equipment. 0655 Pre-TX VS taken. 0706 HD TX started after all machine checks completed and passed. Verified Pt's RT LA AVF is patent. # 15g fistula needles to cannulate Pt's access. Difficulty cannulating A needle, tends to suck up against vessel. A needle adjusted X's 2. Venous cannulated X's 2 as much bleeding around first venous needle occurred. Both A/V needles taped securely then connected to HD bloodlines. HD TX set per 's orders/HD protocol. BFR @ 350 due to difficulty with both needles. 0730 Dr. Alvarado notified Pt started TX. 1000 A pressure alarm and arterial needles readjusted several times to stop pressure from dropping. BFR @ 200/arterial pressure -290. Dr. Alvarado @ bedside and aware of pressure problems in Pt arterial access. 1116 HD TX completed. Blood returned through Pt's RT FA AVF and flushes easily. A/V needles removed and pressure held with gauge til hemostasis reached then taped securely . 1130 Post TX VS taken. 1140 Transportation returned Pt to [place] [id number] via bed with portable O2 set @ 4L/ NC. Net UF is 2.0L 1145 Report called to KIERSTEN Sheldon. * Savita Brumfield RN - 09/10/2017 10:23 AM CDT Associated Order(s): HEMODIALYSIS INPATIENT; HEMODIALYSIS DATE 829 Report received from primary KIERSTEN Moscoso. 0930 Pt arrived in dialysis unit per bed. Assessment completed and documented. 0954 Right AVF accessed using 15gauge dialysis needles without difficulty. Dialysis started with a planned duration of 4 hours and a UF goal of removing 2 liters. Both lines secured with paper tape and open to view. Alpha Page out to Dr Alvarado. 1354 Dialysis completed. Pt tolerated well. Blood returned, dialysis needles removed, hemostasis achieved and area covered with dry gauze and paper tape. 1415 Report called to primary KIERSTEN Moscoso. * Ebenezer Hansen RN - 09/07/2017 3:10 PM CDT Associated Order(s): HEMODIALYSIS INPATIENT 1320 Report received from KIERSTEN Estrada. 1345 Patient arrived on bed, alert and Oriented x 4, COT[place],RA, respirations equal, symmetrical, lung sounds clear throughout. NSR on tele, pulses palpable. Vss per patient rends. Initial assessment completed and charted per doc flow sheets. 1400 Fistula cannulated without any problems with 15 gauge needles, properly secured and visible per procedure.Dialysis started per MD orders 4 hrs tx on 3 K , and [address] Alvarado at bedside; updated of patient status. Will continue monitoring. 1535 Pharmacy contacted to switch heparin to double concentration heparin per Dr. Alvarado' request. 180 Dialysis finished, blood returned, fistula flushed, decccanulated. Pressure held until hemostasis achieved. 1828 Report given to KIERSTEN Rojas. * Sarahi Yañez RN - 09/05/2017 12:41 PM CDT Associated Order(s): HEMODIALYSIS INPATIENT; HEMODIALYSIS DATE 08 - HD treatment completed in [place] [address]. Net UF 2 Liters. PTT drawn and adjusted per protocol and KIERSTEN Mosqueda on unit 62 confirmed bolus and dosage change amounts. Hemostasis achieved within 10 minutes and patient traveling to [facility] before returned to room. Report to Jaylin before tx over. * Liz Junior RN - 09/03/2017 11:52 AM CDT Associated Order(s): HEMODIALYSIS INPATIENT; HEMODIALYSIS DATE Report received from Primary Care RN. Pt treatment at bedside and attached to nbp, cardiac and oximetry monitoring. LAVG accessed on first attempt and without difficulty on both A and V cannulation sites. Both sites secured with paper tape and dressed with a band aid. HD ORDERS: Conventional Hemodialysis for 4.0 hours, F160 Dialyzer, 1.0L - 3.0L net UF pr Dr. Collier, 3K 2.5Ca bath per protocol, Max Blood Blow 400, Max Dialysate Flow 700. 1017 TX START. Prescribed treatment parameters achieved. Lines and access secure In view and intact. Face uncovered and in view. Dr. Collier at [facility] bedside shortly after treatment start. No new orders. 1418 TX END. Net UF 1.0L. [place] pulled one at at time, hemostasis achieved in less than 10 min on each cannulation site. Dressed with band aid and reinforced with gauze and paper tape. Report given to Primary Care RN. * Keiry Peterson RN - 09/01/2017 6:05 PM CDT Associated Order(s): HEMODIALYSIS INPATIENT; HEMODIALYSIS DATE Arrived to room 6213, verified identification and obtained consent. Dialysis machine checked and passed the test. Attached to cardiac, BP, and oximetry monitors. Pt with LLA AV fistula accessed, cannulated with 15 g fistula needles at first attempt. @1730 Dialysis initiated, using 4K bath, UF goal is set for 1 liter per pt's tolerance. Dr. Collier notified. @2129 Dialysis completed and blood returned with NS rinse. Decannulated needles and hemostasis achieved within 10 minutes. Removed 1 liter of fluid(net ). VSS per trends. Report given to KIERSTEN Maurer. in this encounter Consult Notes * Dilma Red - 09/03/2017 12:32 PM CDT CLINICAL NUTRITION Clinical Nutrition Assessment Summary Nutrition Assessment of Patient: BMI Categories Adult: Over Weight: 25-29.9 Unintentional Weight Loss: > 7.5% in 3 months (severe) Malnutrition Assessment: Malnutrition present Current Oral Intake: Marginally Adequate Estimated Calorie Needs: 7961-8286 kcal (25-28 kcal/kg desired wt) Estimated Protein Needs: 116 g (1.3 g/kg desired wt) Oral Diet Order: Renal-Dialysis Patient ICD-10 code E43: Chronic illness/Severe malnutrition Energy intake: 75% or less of estimated energy requirement for 1 month or more, Weight loss: > 7.5% x 3 months Loss of Subcutaneous Fat: No Muscle Wasting: Yes Mild Clavicle, [place] Edema: No Malnutrition Interventions: monitor PO intake adequacy Liz Hendricks is a 76 y.o. 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 At the time of biopsy, they also obtain acid-fast bacteria cultures which turned positive. Infectious disease was contacted and the patient was accepted for admission 08/31. Pt resided in prison facility [facility]. Pt was in good spirits playing cards with family at time of visit today. He reports improved appetite the past 2 weeks. He has recently been eating 2 meals + 1 shake per day. Prior to this he was only eating ~1 meal due to lack of appetite and subsequently lost weight. He reports a usual weight of 110kg in May, present wt 94.3kg; loss of 14% in 4 months, severe. He appears to have mild muscle wasting in temples and clavicle area. Pt is currently on Renal Dialysis diet, but is not enjoying the lack of food options and has not been eating as much as he would like. He was asking about meal passes. Explained that he needs to be on Regular diet to use them, will speak to team about this. Encouraged him to choose foods with protein and keep drinking 1 shake a day while his intake is still slightly low. Discussed still staying within renal guidlines and chosing foods low in sodium, potassium and phos if he starts using meal passes. Pt was very agreeable to this. Recommendation: REC libralizing diet to Regular Diet as pt is not consuming all of his meals due to not liking the food on the Renal Dialysis diet. Pt would like to be able to utilize meal passes. Intervention / Plan: monitor PO intake adequacy monitor wt trends, GI helanathalie, meds, labs paged team about libralizing diet Nutrition Diagnosis: Nutrition Diagnosis: Inadequate energy intake Etiology: poor appetite Signs & Symptoms: pt reports eating 1 meal a day for several months; wt loss of 14% in 4 months Goals: Patient to consume >85% of meals/supplements Time Frame: Throughout Stay Dilma Red RD, LD *[id number] * Shu Amado MD - 09/03/2017 8:08 AM CDT Associated Order(s): CONSULT PULMONARY/CRITICAL CARE PHYSICIAN Formatting of this note may be different from the original. Pulmonary Consult Note Liz Hendricks Date of Admission: 08/31/2017 Active Problems: Liver transplanted (HCC) Immunosuppression (HCC) Acid-fast bacteria present Primary lung adenocarcinoma (HCC) ESRD (end stage renal disease) on dialysis (HCC) GERD (gastroesophageal reflux disease) Impression/Plan: Mr. 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 Adenocarcinoma of the lung- biopsy consistent with adenocarcinoma with lepidic pattern of growth - onc has requested further testing on biopsy samples including PDL1, ALK, ROS1 , EGFR - onc recommending PET CT for staging - no further need for bronchoscopy at this time unless need more tissue for further testing or if PET CT shows need for further biopsy for staging purposes 2. AFB positive culture on lung biopsy specimin- likely JERED, given lack of TB risk factors. - waiting final identification - AFB sputum here currently in process - unlikely that infiltrates or symptoms are secondary to mycobacterium, and more likely secondary to recently diagnosed adenocarcinoma Thank you for this consult. Pulmonary will continue to follow Pt seen and plan discussed with Dr. Amado. ATTESTATION I personally performed the E/M including history, physical exam, and MDM. Staff name: Shu Amado MD Date: 09/03/2017 Reason for consult: lung cancer, mycobacterium HPI: Liz Hendricks is a 76 y.o. male with PMH of ESLD s/p OLT in 2012 on tacro and everolimus immunosuppression, who presents after mycobacterium being found incidentally on lung biopsy. Patent had been experiencing dyspnea and cough since May. He had had pneumonia the previous year and felt that his symptoms were likely pneumonia again. He was seen by his outside primary care who ordered him a course of antibiotics. He had CT chest in June due to persistent symptoms which showed groundglass and interstitial changes in the RUL and bilateral bases. Per patient he had 2-3 more courses of antibiotics with no improvement in imaging or symptoms. He underwent bronchoscopy with brushing and endobronchial biopsy on 08/13 with biopsy positive for adenocarcinoma with lepidic pattern of growth. AFB cultures were also done on the biopsy which resulted as positive on 08/30 and patient was admitted to the hospital for TB ruleout. Overall he is feeling better since admission. He already had plans to see oncology and start chemotherapy prior to being told he needs to come to the hospital. PMH: Past Medical History: Diagnosis Date Arthritis Ascites Basal cell carcinoma CKD (chronic kidney disease) 06/06/2012 COPD (chronic obstructive pulmonary disease) (HCC) Dialysis patient (HCC) M-W-F Edema End-stage liver disease (HCC) Gastrointestinal disorder GERD (gastroesophageal reflux disease) Hepatic encephalopathy (HCC) 07/25/2012 History of alcohol abuse 08/02/2012 History of esophageal varices 08/02/2012 Hypertension 08/02/2012 Murmur Pancreatitis 2014 Personal history of ascites 06/06/2012 Squamous cell carcinoma Transplant Liver Type II diabetes mellitus (HCC) 08/02/2012 PSH: Past Surgical History: Procedure Laterality Date COLONOSCOPY 10/2010 HX ENDOSCOPY 10/2011 HERNIA REPAIR Right 2013 right inguinal hernia repair TRANSPLANT 01/06/13 liver transplant SURGERY 2014 biliary stents placed then removed HX JOINT REPLACEMENT Right 02/03/15 ID ARVEN ANAST OPN UPR ARM BASILIC VEIN TRPOS Right 12/21/2015 CREATION RADIOCEPHALIC ARTERIOVENOUS FISTULA performed by [facility]ino [facility] ID ADJT TIS TRNS/REARGMT F/C/C/M/N/A/G/H/F 10SQCM/< Right 04/07/2016 MOHS CLOSURE RIGHT LATERAL SCALP WITH LOCAL TISSUE REARRANGEMENT 15CM performed by Norris Henriquez MD [facility] OR/Periop SKIN GRAFT N/A 01/26/2017 LOCAL TISSUE TRANSFER TO SCALP VERTEX performed by Norris Henriquez MD [facility]/Periop COLONOSCOPY PLANTAR FASCIA SURGERY Bilateral SOCIAL HISTORY: Social History Social History Marital status: Spouse name: N/A Number of children: N/A Years of education: N/A Social History Main Topics Smoking status: Former Smoker Packs/day: 2.00 Years: 30.00 Quit date: 05/28/1988 Smokeless tobacco: Never Used Alcohol use No Comment: None since 2009 Drug use: No Sexual activity: Not on file Other Topics Concern Not on file Social History Narrative No narrative on file FAMILY HISTORY: Family History Problem Relation Age of Onset Cancer Mother Breast cancer. Basal Cell Carcinoma Father Melanoma Neg Hx ROS: A complete 14 point ROS was obtained and was positive only for ALLERGIES: Adhesive Vital Signs: Last Filed In 24 Hours Vital Signs: 24 Hour Range BP: 127/52 (09/03 8) Temp: 36.6 C (97.9 F) (09/03 8) Pulse: 76 (09/03 8) Respirations: 18 PER MINUTE (09/03 8) SpO2: 92 % (09/03 8) O2 Delivery: CPAP/BiPAP (Pt Owned) (09/03 8) BP: (121-128)/(48-52) Temp: [36.6 C (97.9 F)-37 C (98.6 F)] Pulse: [76-90] Respirations: [18 PER MINUTE] SpO2: [92 %-94 %] O2 Delivery: CPAP/BiPAP (Pt Owned) PHYSICAL EXAMINATION: General: Alert, cooperative, no apparent distress, appears stated age Head: Normocephalic, without obvious abnormality, atraumatic Eyes: Conjunctiva clear. Pupils equal and round, no scleral icterus Neck: Supple, symmetrical, no adenopathy, thyroid Lungs: Clear to auscultation bilaterally, no rhonchi, wheezing, or rales Heart: Regular rate and rhythm, S1, S2 normal, no murmur,rub,click or gallop Abdomen: Soft, non-tender. Bowel sounds normal. No masses. No organomegaly. Extremities: Extremities normal, atraumatic, no cyanosis or edema Pulses: 2+ and symmetric, all extremities Neurologic Exam Mental Status: alert and oriented x 3 Psych: normal mood and affect Skin: no rash or jaundice LABS: Recent Labs 08/31/17 1830 09/01/17 0800 09/02/17 0551 NA 134* 135* 136* K 3.4* 3.1* 3.8 CL 94* 95* 98 CO2 28 27 28 GAP 12 13* 10 BUN 29* 34* 15 CR 8.42* 9.32* 5.69* GLU 98 112* 97 CA 10.3 10.7* 10.8* ALBUMIN 3.4* 3.2* 3.4* MG 2.0 -- -- PO4 6.6* -- -- Recent Labs 08/31/17 1830 08/31/17 1907 09/01/17 0800 09/02/17 0551 WBC 5.7 -- 4.9 5.2 HGB 8.6* -- 8.6* 10.0* HCT 25.8* -- 26.2* 29.6* PLTCT 235 -- 245 255 INR -- 1.1 -- 1.1 PTT -- 27.7 -- -- AST 13 -- 11 10 ALT 9 -- 8 8 ALKPHOS 56 -- 61 61 Estimated Creatinine Clearance: 14.7 mL/min (A) (based on SCr of 5.69 mg/dL (H)) . Vitals: 08/31/17 2045 09/01/17 2145 Weight: 92.3 kg (203 lb 7.8 oz) 91.3 kg (201 lb 4.5 oz) No results for input(s): PHART, PO2ART in the last 72 hours. Invalid input(s): PC02A MEDS albuterol 0.5% 2.5 mg Inhalation BID & PRN amLODIPine 10 mg Oral QDAY aspirin 81 mg Oral QDAY atorvastatin 10 mg Oral QDAY doxazosin 2 mg Oral QDAY everolimus (immunosuppressive) 1 mg Oral BID heparin (porcine) 5,000 Units Subcutaneous Q8H ipratropium bromide 0.5 mg Inhalation BID & PRN oxybutynin XL 5 mg Oral QDAY pantoprazole DR 40 mg Oral QDAY(21) sevelamer carbonate 800 mg Oral TID w/ meals tacrolimus 0.5 mg Oral BID IV MEDS Prn sodium chloride 0.9% (NS) IP Dialysis PRN, sodium chloride 0.9% ( NS) IP Dialysis PRN, sodium chloride 0.9% (NS) IP Dialysis PRN, sodium chloride PRN 15 mL at 09/03/17 0543 HOME MEDS Prescriptions Prior to Admission Medication Sig albuterol (PROAIR HFA) 90 mcg/actuation inhaler Inhale 1 puff by mouth into the lungs every 6 hours as needed for Wheezing or Shortness of Breath. Shake well before use. albuterol-ipratropium (DUO-NEB, DUO-VENT) 0.5 mg-3 mg(2.5 mg base)/3 mL nebulizer solution Inhale 3 mL solution by nebulizer as directed twice daily. aspirin 81 mg chewable tablet Take 1 Tab by mouth daily. atorvastatin (LIPITOR) 10 mg tablet 1 Tab daily. darbepoetin karin (ARANESP) 100 mcg/0.5 mL syrg Inject 100 mcg under the skin every 7 days. doxazosin (CARDURA) 2 mg tablet Take 1 Tab by mouth daily. escitalopram oxalate (LEXAPRO) 10 mg tablet Take 10 mg by mouth daily. everolimus (immunosuppressive) (ZORTRESS) 0.5 mg tablet Take 2 mg by mouth twice daily. megestrol 400 mg/10 mL (10 mL) susp Take 10 mL by mouth every morning. metoclopramide (REGLAN) 5 mg tablet Take 5 mg by mouth twice daily. niacin ER (NIASPAN) 500 mg tablet Take 500 mg by mouth at bedtime daily. Take with food. oxybutynin XL (DITROPAN XL) 5 mg tablet Take 5 mg by mouth daily. pantoprazole DR (PROTONIX) 40 mg tablet TAKE ONE TABLET BY MOUTH DAILY tacrolimus (PROGRAF) 1 mg capsule Take 1 capsule by mouth twice daily. tamsulosin (FLOMAX) 0.4 mg capsule TAKE ONE CAPSULE BY MOUTH DAILY AFTER BREAKFAST traMADol (ULTRAM) 50 mg tablet Take 1 Tab by mouth every 8 hours as needed for Pain. RADIOLOGY: CT Chest: IMPRESSION 1. Redemonstration of consolidative right upper lobe opacities with associated cystic changes and air bronchograms. Findings likely represent reported biopsy-proven adenocarcinoma with underlying mycobacterial infection. 2. Progression in bibasilar groundglass and consolidative opacities, consistent with increasing pneumonia. 3. Persistent trace bilateral pleural effusions. 4. Coronary artery disease. Shantel Wolfe DO Pulmonary/Critical Care Pager # [phone] 09/03/2017 * Samantha Juarze APRN - 09/03/2017 7:34 AM CDT Associated Order(s): CONSULT ONCOLOGY PHYSICIAN Formatting of this note may be different from the original. Oncology Consult Note Admission Date: 08/31/2017 LOS: 3 days Reason for Consult: 76 yo M with recently diagnosed adenocarcinoma of the lung. Planned to establish with Dr. Ventura on 09/03/17 but is now hospitalized for tuberculosis rule-out. Cancer Center had requested inpatient medical oncology consult. Consult type: co-management with signed orders Assessment/Plan Lung Adenocarcinoma - 07/18/17: CT chest, RUL pneumonia - 07/24/17-07/31/17 patient admitted to [facility] for persistent pneumonia. - 08/10/17-08/20/17 admitted at [facility] for increasing weakness and fatigue. - 08/11/17 CT chest, significant right lung airspace disease, persistent effusions. - 08/13/17 bronchoscopy with RUL biopsy and brushing. Biopsy showed focally invasive well-differentiate adenocarcinoma, predominant lepidic pattern. No other studies currently pending. - 08/14/17 MRI brain, negative - 09/02/17: CT chest- Re demonstration of consolidative right upper lobe opacities with associated cystic changes and air bronchograms. Findings likely represent reported biopsy-proven adenocarcinoma with underlying mycobacterial Infection. Progression in bibasilar ground glass and consolidative opacities, consistent with increasing pneumonia. Positive AFB Culture - Lung mass biopsy sent for AFB in July, positive result noted on 08/30 - No previous known TB exposure - ID following for results of AFB smears, culture ESRD on HD ESLD s/p OLT on everolimus and tacrolimus Plan - ID following for ongoing management of suspected TB, awaiting AFB culture results - Obtain PET scan for clarification of stage of lung adenocarcinoma. From review of OSH records, CT scans with evidence of RUL malignancy only, so need further imaging evaluation - Spoke with OSH pathology- additional staining for PDL1, ALK, ROS1, EGFR have not been ordered on biopsy from 08/13/17- have requested those stains to be run which will guide systemic treatment recommendations - Will ensure follow up with Dr. Ventura following hospitalization at [facility] Thank you for this consult. Please page with any questions. Patient seen and discussed with Dr. Posadas. History of Present Illness: Liz Hendricks is a 76 y.o. male admitted with positive AFB culture from lung biopsy that obtained in July 2017. He initially presented with right lung pneumonia that persisted. In July, underwent bronchoscopy for tissue diagnosis that confirmed well differentiated adenocarcinoma. Biopsy also sent for AFB testing which confirmed a positive result on 08/30/17. ID following, patient reports history of dry cough but no hemoptysis. [facility] for past [facility] months, but no known exposure to TB. He was scheduled to establish care with Dr. Ventura at [facility] today. Oncology consulted regarding ongoing plan of care. Past Medical History: Diagnosis Date Arthritis Ascites Basal cell carcinoma CKD (chronic kidney disease) 06/06/2012 COPD (chronic obstructive pulmonary disease) (HCC) Dialysis patient (HCC) M-W-F Edema End-stage liver disease (HCC) Gastrointestinal disorder GERD (gastroesophageal reflux disease) Hepatic encephalopathy (HCC) 07/25/2012 History of alcohol abuse 08/02/2012 History of esophageal varices 08/02/2012 Hypertension 08/02/2012 Murmur Pancreatitis 2014 Personal history of ascites 06/06/2012 Squamous cell carcinoma Transplant Liver Type II diabetes mellitus (HCC) 08/02/2012 Past Surgical History: Procedure Laterality Date COLONOSCOPY 10/2010 HX ENDOSCOPY 10/2011 HERNIA REPAIR Right 2013 right inguinal hernia repair TRANSPLANT 01/06/13 liver transplant SURGERY 2014 biliary stents placed then removed HX JOINT REPLACEMENT Right 02/03/15 ID ARVEN ANAST OPN UPR ARM BASILIC VEIN TRPOS Right 12/21/2015 CREATION RADIOCEPHALIC ARTERIOVENOUS FISTULA performed by Fortino Hamm [facility]/Periop ID ADJT TIS TRNS/REARGMT F/C/C/M/N/A/G/H/F 10SQCM/< Right 04/07/2016 MOHS CLOSURE RIGHT LATERAL SCALP WITH LOCAL TISSUE REARRANGEMENT 15CM performed by Norris Henriquez MD [facility] OR/Periop SKIN GRAFT N/A 01/26/2017 LOCAL TISSUE TRANSFER TO SCALP VERTEX performed by Norris Henriquez MD [facility] OR/Periop COLONOSCOPY PLANTAR FASCIA SURGERY Bilateral Social History Social History Marital status: Spouse name: N/A Number of children: N/A Years of education: N/A Social History Main Topics Smoking status: Former Smoker Packs/day: 2.00 Years: 30.00 Quit date: 05/28/1988 Smokeless tobacco: Never Used Alcohol use No Comment: None since 2009 Drug use: No Sexual activity: Not on file Other Topics Concern Not on file Social History Narrative No narrative on file Family History Problem Relation Age of Onset Cancer Mother Breast cancer. Basal Cell Carcinoma Father Melanoma Neg Hx Allergies: Adhesive Scheduled Meds: albuterol 0.5% (PROVENTIL; VENTOLIN) nebulizer solution 2.5 mg 2.5 mg Inhalation BID & PRN amLODIPine (NORVASC) tablet 10 mg 10 mg Oral QDAY aspirin chewable tablet 81 mg 81 mg Oral QDAY atorvastatin (LIPITOR) tablet 10 mg 10 mg Oral QDAY doxazosin (CARDURA) tablet 2 mg 2 mg Oral QDAY everolimus (immunosuppressive) (ZORTRESS) tablet 1 mg 1 mg Oral BID heparin (porcine) PF syringe 5,000 Units 5,000 Units Subcutaneous Q8H ipratropium bromide (ATROVENT) 0.02 % nebulizer solution 0.5 mg 0.5 mg Inhalation BID & PRN oxybutynin XL (DITROPAN XL) tablet 5 mg 5 mg Oral QDAY pantoprazole DR (PROTONIX) tablet 40 mg 40 mg Oral QDAY(21) sevelamer carbonate (RENVELA) tablet 800 mg 800 mg Oral TID w/ meals tacrolimus (PROGRAF) capsule 0.5 mg 0.5 mg Oral BID Continuous Infusions: PRN and Respiratory Meds:sodium chloride 0.9% (NS) IP Dialysis PRN, sodium chloride 0.9% (NS) IP Dialysis PRN, sodium chloride 0.9% (NS) IP Dialysis PRN, sodium chloride PRN Review of Systems: Constitutional: negative for fevers, chills, positive for fatigue,weight loss Eyes: negative for visual disturbance ENT: negative for nasal congestion, epistaxis, sore throat Respiratory: negative for hemoptysis, positive for dry cough, dyspnea on exertion Cardiovascular: negative for chest pain, lower extremity edema Gastrointestinal: negative for dysphagia, nausea, vomiting, diarrhea, constipation, abdominal pain Genitourinary:negative for frequency, dysuria Integument/breast: negative for rash Hematologic/lymphatic: negative for bleeding Musculoskeletal:negative for myalgias, back pain Neurological: negative for headaches, dizziness, coordination problems Behavioral/Psych: negative for altered mental status Vital Signs: Last Filed in 24 hours Vital Signs: 24 hour Range BP: 127/52 (09/03 8) Temp: 36.6 C (97.9 F) (09/03 8) Pulse: 76 (09/03 8) Respirations: 18 PER MINUTE (09/03 8) SpO2: 92 % (09/03 8) O2 Delivery: CPAP/BiPAP (Pt Owned) (09/03 8) BP: (121-128)/(48-52) Temp: [36.6 C (97.9 F)-37 C (98.6 F)] Pulse: [76-90] Respirations: [18 PER MINUTE] SpO2: [92 %-94 %] O2 Delivery: CPAP/BiPAP (Pt Owned) Physical Exam: General appearance: alert, cooperative, no distress Head: normocephalic, atraumatic Eyes: PERRL Throat: lips, mucosa, and tongue normal. Lungs: clear to auscultation bilaterally Heart: regular rate and rhythm Abdomen: soft, non-tender. Bowel sounds normal, No masses, no organomegaly Extremities: extremities normal, atraumatic, no edema Neurologic: no focal deficits Pulses:2+ and symmetric Skin: No rash Lab/Radiology/Other Diagnostic Tests: 24-hour labs: No results found for this visit on 08/31/17 (from the past 24 hour(s)). Pertinent radiology reviewed. Samantha Juarez, ALICIA [phone] Associated attestation - Richard Posadas MD - 09/03/2017 4:41 PM CDT I have reviewed subjective and objective findings with the nurse practitioner and I have personally interviewed and examined the patient. The STAIN SPRAYER's assessment and plan correspond to my own medical decision making. Yeh physical findings: Alert and oriented Generally weak and deconditioned No palpable adenopathy Abdomen negative No lower extremity edema Pertinent lab and Xray findings: Adenocarcinoma on bronchial biopsy 08/13/17 Positive AFB culture Imp: TB is in the process of being ruled out In the meantime, Mr. Hendricks has biopsy proven bronchogenic adenocarcinoma. The stage and molecular status of the tumor isn't clear, however, with the information currently available. No definite objective evidence of disease other than the primary has been seen. Comorbid problems incude: Postobstructive pneumonia ESRD on dialysis Chronic immunosuppression S/P liver transplant Disc/Rec: This certainly is a complicated situation. Patient has been ill now for over 2 months during which time he has become weak to the point of incapacity. Poor performance status could influence his eligibility for treatment but he really needs to be staged and the tumor needs to be better characterized. I stressed the need for PT and general strengthening. Will get staging PET scan and request PDL-1, ALK, ROS1, and EGFR on the tumor. Would be nice if a case for targeted therapy can be made. Richard Posadas * Nahomy Collier MD - 09/01/2017 3:28 PM CDT Associated Order(s): CONSULT NEPHROLOGY PHYSICIAN Formatting of this note may be different from the original. Renal Consult Liz Hendricks Admission Date: 08/31/2017 Assessment and Plan Active Problems: Liver transplanted (HCC) Immunosuppression (HCC) Acid-fast bacteria present Primary lung adenocarcinoma (HCC) ESRD (end stage renal disease) on dialysis (HCC) GERD (gastroesophageal reflux disease) Liz Hendricks is a 76 y.o. male End-stage renal disease on hemodialysis Sunday but missed Sunday dialysis. [place] is right AV fistula. His dry weight is stated to be 110 however he has lost significant weight and his and last weight was around 92 in the dialysis facility. Lung mass with the positive AFB culture-on neg pressure isolation Adenocarcinoma of the lung ESLD s/p OLT on overolimus and tacro DM Anemia Hypokalemia HTN Hyperphosphatemia Recommendations: Pt will be dialyzed today with UF to achieve DW For 4 hrs via AVF. Will use a 4 K bath for hypokalemia Check tacro level Continue amlodipine and cardura Check iron studies and start ALE if iron well replaced Need to start renagel 800 mg TID with meals for high Phosphate Continue airborne precaution and follow ID Pedro Pablo regarding positive AFB culture - we will coordinate dialysis to maintain these precautions. Thank you for consulting nephrology, please do not hesitate to contact me with any questions. case discussed with Dr. Margi COLLIER MD Pager [phone] History Reason for Consult: ESRD HPI: Liz Hendricks is a 76 y.o. male with the past medical history of liver transplant in 2012 due to [place]arez and alcoholic cirrhosis, end-stage renal disease for the last year likely due to CKD with his liver disease, and diabetes and recent diagnosis of lung adenocarcinoma. He was admitted on August 31, Patient states that around 2 months ago he was hospitalized for pneumonia. During that hospitalization he underwent a bronchoscopy and biopsies were taken of mass that was diagnosed to be adenocarcinoma. During that procedure they also did AFB cultures which turned out to be positive so patient was contacted for admission. Patient has had recent weight loss of more than 30 pounds since his for pneumonia/adenocarcinoma diagnosis. He generally feels weak and has a dry cough but he has no nausea vomiting diarrhea or constipation. He denies any rash headache or dizziness. He also denies hemoptysis. He did not get dialyzed per his schedule on Sunday. Past Medical History Past Medical History: Diagnosis Date Arthritis Ascites Basal cell carcinoma CKD (chronic kidney disease) 06/06/2012 COPD (chronic obstructive pulmonary disease) (HCC) Dialysis patient (HCC) M-W-F Edema End-stage liver disease (HCC) Gastrointestinal disorder GERD (gastroesophageal reflux disease) Hepatic encephalopathy (HCC) 07/25/2012 History of alcohol abuse 08/02/2012 History of esophageal varices 08/02/2012 Hypertension 08/02/2012 Murmur Pancreatitis 2014 Personal history of ascites 06/06/2012 Squamous cell carcinoma Transplant Liver Type II diabetes mellitus (HCC) 08/02/2012 Past Surgical History: Procedure Laterality Date COLONOSCOPY 10/2010 HX ENDOSCOPY 10/2011 HERNIA REPAIR Right 2013 right inguinal hernia repair TRANSPLANT 01/06/13 liver transplant SURGERY 2014 biliary stents placed then removed HX JOINT REPLACEMENT Right 02/03/15 ID ARVEN ANAST OPN UPR ARM BASILIC VEIN TRPOS Right 12/21/2015 CREATION RADIOCEPHALIC ARTERIOVENOUS FISTULA performed by Fortino Hamm MD [facility]/Periop ID ADJT TIS TRNS/REARGMT F/C/C/M/N/A/G/H/F 10SQCM/< Right 04/07/2016 MOHS CLOSURE RIGHT LATERAL SCALP WITH LOCAL TISSUE REARRANGEMENT 15CM performed by Norris Henriquez MD at [facility] OR/Periop SKIN GRAFT N/A 01/26/2017 LOCAL TISSUE TRANSFER TO SCALP VERTEX performed by Norris Henriquez MD at [facility] OR/Periop COLONOSCOPY PLANTAR FASCIA SURGERY Bilateral Family History No hx of renal dis Social History Social History Social History Marital status: Spouse name: N/A Number of children: N/A Years of education: N/A Social History Main Topics Smoking status: Former Smoker Packs/day: 2.00 Years: 30.00 Quit date: 05/28/1988 Smokeless tobacco: Never Used Alcohol use No Comment: None since 2009 Drug use: No Sexual activity: Not on file Other Topics Concern Not on file Social History Narrative No narrative on file Medications MEDS albuterol 0.5% 2.5 mg Inhalation BID & PRN amLODIPine 10 mg Oral QDAY aspirin 81 mg Oral QDAY atorvastatin 10 mg Oral QDAY doxazosin 2 mg Oral QDAY everolimus (immunosuppressive) 2 mg Oral BID heparin (porcine) 5,000 Units Subcutaneous Q8H ipratropium bromide 0.5 mg Inhalation BID & PRN oxybutynin XL 5 mg Oral QDAY pantoprazole DR 40 mg Oral QDAY(21) tacrolimus 1 mg Oral BID IV MEDS Prn sodium chloride 0.9% (NS) IP Dialysis PRN, sodium chloride 0.9% ( NS) IP Dialysis PRN, sodium chloride 0.9% (NS) IP Dialysis PRN HOME MEDS Prior to Admission Medications Prescriptions Last Dose Informant Patient Reported? Taking? albuterol (PROAIR HFA) 90 mcg/actuation inhaler Unknown MAR from outside facility Yes Yes Sig: Inhale 1 puff by mouth into the lungs every 6 hours as needed for Wheezing or Shortness of Breath. Shake well before use. albuterol-ipratropium (DUO-NEB, DUO-VENT) 0.5 mg-3 mg(2.5 mg base)/3 mL nebulizer solution 08/31/2017Jul from outside facility Yes Yes Sig: Inhale 3 mL solution by nebulizer as directed twice daily. aspirin 81 mg chewable tablet 08/31/2017Jul from outside facility No Yes Sig: Take 1 Tab by mouth daily. atorvastatin (LIPITOR) 10 mg tablet 08/31/2017Jul from outside facility No Yes Si Tab daily. darbepoetin karin (ARANESP) 100 mcg/0.5 mL syrg 08/28/2017Jul from outside facility Yes Yes Sig: Inject 100 mcg under the skin every 7 days. doxazosin (CARDURA) 2 mg tablet 08/30/2017Jul from outside facility No Yes Sig: Take 1 Tab by mouth daily. escitalopram oxalate (LEXAPRO) 10 mg tablet 08/31/2017Jul from outside facility Yes Yes Sig: Take 10 mg by mouth daily. everolimus (immunosuppressive) (ZORTRESS) 0.5 mg tablet 08/31/2017Jul from outside facility Yes Yes Sig: Take 2 mg by mouth twice daily. megestrol 400 mg/10 mL (10 mL) susp 08/31/2017Jul from outside facility Yes Yes Sig: Take 10 mL by mouth every morning. metoclopramide (REGLAN) 5 mg tablet 08/31/2017Jul from outside facility Yes Yes Sig: Take 5 mg by mouth twice daily. niacin ER (NIASPAN) 500 mg tablet 08/30/2017Jul from outside facility Yes Yes Sig: Take 500 mg by mouth at bedtime daily. Take with food. oxybutynin XL (DITROPAN XL) 5 mg tablet 08/30/2017Jul from outside facility Yes Yes Sig: Take 5 mg by mouth daily. pantoprazole DR (PROTONIX) 40 mg tablet 08/31/2017 MAR from outside facility No Yes Sig: TAKE ONE TABLET BY MOUTH DAILY tacrolimus (PROGRAF) 1 mg capsule 08/31/2017Jul from outside facility No Yes Sig: Take 1 capsule by mouth twice daily. tamsulosin (FLOMAX) 0.4 mg capsule 08/31/2017 MAR from outside facility No Yes Sig: TAKE ONE CAPSULE BY MOUTH DAILY AFTER BREAKFAST traMADol (ULTRAM) 50 mg tablet Past Week MAR from outside facility No Yes Sig: Take 1 Tab by mouth every 8 hours as needed for Pain. Facility-Administered Medications: None Review of Systems 14 point reviewed and neg other than HPI Physical Exam Vital Signs: Last Filed In 24 Hours Vital Signs: 24 Hour Range BP: 104/46 (09/01 1233) Temp: 37.1 C (98.8 F) (09/01 1233) Pulse: 75 (09/01 1233) Respirations: 19 PER MINUTE (09/01 1233) SpO2: 91 % (09/01 1233) O2 Delivery: Nasal Cannula (09/01 123) Height: 189 cm (74.4") (08/31 2044) BP: (104-140)/(46-69) Temp: [36.5 C (97.7 F)-37.1 C (98.8 F)] Pulse: [74-83] Respirations: [12 PER MINUTE-19 PER MINUTE] SpO2: [91 %-97 %] O2 Delivery: Nasal Cannula Intensity Pain Scale 0-10 (Pain 1): 0 (09/01/17 0732) Vitals: 08/31/172044 Weight: 92.3 kg (203 lb 7.8 oz) Intake/Output Summary (Last 24 hours) at 09/01/17 1528 Last data filed at 09/01/17 0600 Gross per 24 hour Intake 400 ml Output 0 ml Net 400 ml Gen: Alert and Oriented, No Acute Distress HEENT: Sclera normal; no cervical lymphadenopathy CV: no JVD, S1 and S2 normal, no rubs, murmurs or gallops Pulm: Clear to Auscultation bilateral , no chest wall tenderness GI: BS+ x4, non-tender to palpation Neuro: Grossly normal, moving all extremities, speech intact Ext: no edema, clubbing or cyanosis Skin: no rash Rt AVF Labs Recent Labs 08/31/17 1830 09/01/17 0800 NA 134* 135* K 3.4* 3.1* CL 94* 95* CO2 28 27 GAP 12 13* BUN 29* 34* CR 8.42* 9.32* GLU 98 112* CA 10.3 10.7* ALBUMIN 3.4* 3.2* MG 2.0 -- PO4 6.6* -- Recent Labs 08/31/17 1830 08/31/17 1907 09/01/17 0800 WBC 5.7 -- 4.9 HGB 8.6* -- 8.6* HCT 25.8* -- 26.2* PLTCT 235 -- 245 INR -- 1.1 -- PTT -- 27.7 -- AST 13 -- 11 ALT 9 -- 8 ALKPHOS 56 -- 61 Estimated Creatinine Clearance: 9.1 mL/min (A) (based on SCr of 9.32 mg/dL (H)). Vitals: 08/31/17 2045 Weight: 92.3 kg (203 lb 7.8 oz) No results for input(s): PHART, PO2ART in the last 72 hours. Invalid input(s): PC02A Cxray 08/31 1. There is persistent dense patchy consolidation within the right upper lung. Mild hazy opacity suggests within the right lower lung. These findings are unchanged or slightly worse than on the prior CXR study. 2. Heart and mediastinum are within normal limits and unchanged from prior study. No pleural effusions. Radiology * Conner Lynn MD - 09/01/2017 12:27 PM CDT Associated Order(s): CONSULT INFECTIOUS DISEASES PHYSICIAN Formatting of this note may be different from the original. Infectious Diseases Initial Consult Today's Date: 09/01/2017 Admission Date: 08/31/2017 Reason for this consultation: Positive AFB from mass biopsy at OSH. History of OLT in 2012 Consult Type: Co-Management w/Signed Orders Assessment: Lung mass with Positive AFB Culture Adenocarcinoma of the lung - 2 months ago the patient was hospitalized at an outside facility for pneumonia. During that hospitalization he underwent bronchoscopy and biopsies were taken of the mass (08/13). This mass showed adenocarcinoma. -08/13 mass bx also had AFB culture sent. + on 08/30. ID was contacted on 08/31 for advice and reportedly recommended admission. -On admission he felt generally unchanged, he did have significant weakness and lost 30 pounds over the prior 10 weeks. He did have a dry cough without any hemoptysis. He had not been incarcerated or had significant travel (only intl was decades ago to [place] and [place]) or TB exposure. -3 AFB sputum cultures were ordered, is placed on airborne precautions, no antibiotics were started and ID was consulted. -No leukocytosis, afebrile. -Regarding the culture that was positive from the mass - this was + on 08/30 and sent for ID to the [facility] lab. CKD COPD ESRD on HD ESLD s/p OLT on everolimus and tacrolimus DM H/O Joint replacement Recommendations: -Will follow AFB smears/cultures -Suspect NTM > TB, unclear need for treatment vs monitoring. Unless TB would want full Susceptibility profile prior to considering treatment. -Would call [facility] lab and ask for TB and JERED PCR testing to be done on the sample from his lung mass. -Watch for antimicrobial toxicities -Will follow Thank you for the consultation. Conner Lynn MD [employer] Division of Infectious Diseases I will round on Sunday. 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 He also has a history of end-stage renal disease on hemodialysis and diabetes mellitus. He also has a recent diagnosis of lung adenocarcinoma. He is admitted on 08/31/17. Approximately 2 months ago the patient was hospitalized at an outside facility for pneumonia. During that hospitalization he underwent bronchoscopy and biopsies were taken of the mass. This mass showed adenocarcinoma. There had been a plan for follow-up at [facility] oncology. [facility] has been [facility] facility. 1 of the biopsy of mass was taken they also did AFB cultures and earlier today these turned positive. Someone contacted an infectious disease physician, admission was recommended. On admission he felt generally unchanged, he did have significant weakness and lost 30 pounds over the prior 10 weeks. He did have a dry cough without any hemoptysis. He had not been incarcerated or had significant travel or TB exposure. 3 AFB sputum cultures were ordered, is placed on airborne precautions, no antibiotics were started and ID was consulted. No leukocytosis, afebrile. Regarding the culture that was positive from the mass - this was + on 08/30 and sent for ID to the state lab. Feels good. Weak, no dyspnea, has a dry cough, no f/c/diaphoresis, no hemoptysis, no n/v, no rash, no abd pain, no MCKENZIE or neck stiffness. Antimicrobial Start date End date Estimated Creatinine Clearance: 9.1 mL/min (A) (based on SCr of 9.32 mg/dL (H)). Past Medical History Past Medical History: Diagnosis Date Arthritis Ascites Basal cell carcinoma CKD (chronic kidney disease) 06/06/2012 COPD (chronic obstructive pulmonary disease) (HCC) Dialysis patient (HCC) M-W-F Edema End-stage liver disease (HCC) Gastrointestinal disorder GERD (gastroesophageal reflux disease) Hepatic encephalopathy (HCC) 07/25/2012 History of alcohol abuse 08/02/2012 History of esophageal varices 08/02/2012 Hypertension 08/02/2012 Murmur Pancreatitis 2014 Personal history of ascites 06/06/2012 Squamous cell carcinoma Transplant Liver Type II diabetes mellitus (HCC) 08/02/2012 Past Surgical History Past Surgical History: Procedure Laterality Date COLONOSCOPY 10/2010 HX ENDOSCOPY 10/2011 HERNIA REPAIR Right 2013 right inguinal hernia repair TRANSPLANT 01/06/13 liver transplant SURGERY 2014 biliary stents placed then removed HX JOINT REPLACEMENT Right 02/03/15 ID ARVEN ANAST OPN UPR ARM BASILIC VEIN TRPOS Right 12/21/2015 CREATION RADIOCEPHALIC ARTERIOVENOUS FISTULA performed by Fortino Hamm MD [facility] OR/Periop ID ADJT TIS TRNS/REARGMT F/C/C/M/N/A/G/H/F 10SQCM/< Right 04/07/2016 MOHS CLOSURE RIGHT LATERAL SCALP WITH LOCAL TISSUE REARRANGEMENT 15CM performed by Norris Henriquez MD at [facility] OR/Periop SKIN GRAFT N/A 01/26/2017 LOCAL TISSUE TRANSFER TO SCALP VERTEX performed by Norris Henriquez MD at [facility] OR/Periop COLONOSCOPY PLANTAR FASCIA SURGERY Bilateral Social History Social History Social History Marital status: Spouse name: N/A Number of children: N/A Years of education: N/A Social History Main Topics Smoking status: Former Smoker Packs/day: 2.00 Years: 30.00 Quit date: 05/28/1988 Smokeless tobacco: Never Used Alcohol use No Comment: None since 2009 Drug use: No Sexual activity: Not on file Other Topics Concern Not on file Social History Narrative No narrative on file Family History Family History Problem Relation Age of Onset Cancer Mother Breast cancer. Basal Cell Carcinoma Father Melanoma Neg Hx Review of Systems Full 10 system ROS completed and negative unless otherwise noted above. Medications Scheduled Meds: albuterol 0.5% (PROVENTIL; VENTOLIN) nebulizer solution 2.5 mg 2.5 mg Inhalation BID & PRN amLODIPine (NORVASC) tablet 10 mg 10 mg Oral QDAY aspirin chewable tablet 81 mg 81 mg Oral QDAY atorvastatin (LIPITOR) tablet 10 mg 10 mg Oral QDAY doxazosin (CARDURA) tablet 2 mg 2 mg Oral QDAY everolimus (immunosuppressive) (ZORTRESS) tablet 2 mg 2 mg Oral BID heparin (porcine) PF syringe 5,000 Units 5,000 Units Subcutaneous Q8H ipratropium bromide (ATROVENT) 0.02 % nebulizer solution 0.5 mg 0.5 mg Inhalation BID & PRN oxybutynin XL (DITROPAN XL) tablet 5 mg 5 mg Oral QDAY pantoprazole DR (PROTONIX) tablet 40 mg 40 mg Oral QDAY(21) tacrolimus (PROGRAF) capsule 1 mg 1 mg Oral BID Continuous Infusions: PRN and Respiratory Meds:sodium chloride 0.9% (NS) IP Dialysis PRN, sodium chloride 0.9% (NS) IP Dialysis PRN, sodium chloride 0.9% (NS) IP Dialysis PRN Allergies Allergies Allergen Reactions Adhesive BLISTERS Skin tears Physical Examination Vital Signs: Last Vital Signs: 24 Hour Range BP: 140/59 (09/01 730) Temp: 36.8 C (98.3 F) (09/01 730) Pulse: 83 (09/01 730) Respirations: 19 PER MINUTE (09/01 730) SpO2: 94 % (09/01 730) O2 Delivery: Nasal Cannula (09/01 730) Height: 189 cm (74.4") (08/31 2044) BP: (123-140)/(59-69) Temp: [36.5 C (97.7 F)-36.8 C (98.3 F)] Pulse: [74-83] Respirations: [12 PER MINUTE-19 PER MINUTE] SpO2: [92 %-97 %] O2 Delivery: Nasal Cannula General appearance: alert, oriented x 3, in NAD HENT: normocephalic, atraumatic, no sinus tenderness, oropharynx clear Eyes: EOM grossly intact, Conj nl Neck: supple, no lymphadenopathy Lungs: CTAB, no wheezing, rhonchi, rales appreciated Heart: regular rhythm, reg rate, no murmur, rub, gallop Abdomen: soft, non-tender, non-distended, normoactive bowel sounds, Ext: no clubbing, cyanosis or edema Skin: no rashes/lesions Lines: PIV, AV fistula Lab Review Hematology Recent Labs 08/31/170 08/31/17 1907 09/01/17 0800 WBC 5.7 -- 4.9 HGB 8.6* -- 8.6* HCT 25.8* -- 26.2* PLTCT 235 -- 245 PTT -- 27.7 -- INR -- 1.1 -- Chemistry Recent Labs 08/31/17 1830 09/01/17 0800 NA 134* 135* K 3.4* 3.1* CL 94* 95* CO2 28 27 BUN 29* 34* CR 8.42* 9.32* GFR 6* 6* GLU 98 112* CA 10.3 10.7* PO4 6.6* -- ALBUMIN 3.4* 3.2* ALKPHOS 56 61 AST 13 11 ALT 9 8 TOTBILI 0.3 0.3 Microbiology, Radiology and other Diagnostics Review Microbiology data reviewed. 08/31/17: BC x2 NGTD Pertinent radiology images viewed. Complexity of medical decision making is high due to the multi-system nature of the infectious disease process or potential for limb-threatening infection as well as concerns including but not limited to complexity of the patient's underlying illnesses, the identification and sensitivities of the organisms being treated, the potential for antimicrobial toxicities and drug-drug interactions, concerns regarding immunologic function, and interplay of other issues. Adenocarcinoma of the lung, ESLD s/p OLT, immune suppression, ESRD on HD , lab and imaging review, summary of old records. * Jonathon Munguia MD - 09/01/2017 8:29 AM CDT Associated Order(s): CONSULT HEPATOLOGY PHYSICIAN; CONSULT NEPHROLOGY PHYSICIAN Formatting of this note may be different from the original. General Consult Note Admission Date: 08/31/2017 LOS: 1 day Reason for Consult: History of OLT, immunosuppressive status, currently with possible MAC infection Consult type: Opinion Assessment/Plan This is a 76 YO male with past medical history significant for OLT in 12/2012 for ESLD 2/2 Suarez and alcohol abuse without postsurgical complications, immunocompromised status on everolimus 2 mg twice daily, and tacrolimus 1 mg twice daily, end-stage renal disease on hemodialysis Sunday, numerous skin cancers both BCC and SCC,, status post resection treatment, recently diagnosed lung adenocarcinoma, hypertension, and GERD who was admitted for positive acid-fast bacteria culture and sputum suspicious for MAC infection. Hepatology team was consulted for further recommendations on the immunosuppressive therapy given his OLT 1. OLT Transplant in 12/2012 for cirrhosis due to SUAREZ and alcohol use. No post transplant complications. 2. Chronic Immunosuppression Currently on everolimus 2 mg twice daily, and tacrolimus 1 mg twice daily, Most recent tacro levels 7.7 on 05/14/17, and everolimus 19.6 on 05/14, then most recently 8.6 on 05/31 3. Skin cancer Disease course was complicated by several BCCs, and SCCs, s/p resections. Mainly in the setting of immunosuppressive therapy. 4. ESRD: On hemodialysis M,W,F. 5. Recently diagnosis Lung adenocarcinoma: Diagnosed about 2months ago at OSH, after she was admitted for 3 weeks. Not seen by oncology here yet. Plan was to follow up after [facility], then transferred here 08/31. 6. Possible mycobacterial infection: Lung biopsy showed AF+ bacteria suspicious for mycobacterial infection. No exposure to TB pts, no recent travel. Recommendations: -Please obtain outside records for his recently diagnosed lung cancer. Also please try to obtain cancer slides to be reviewed here at [facility] -Consult pulmonary for lung adenocarcinoma/possible MAC infection -Consult ID -Obtain chest CT -Please check tacrolimus and everolimus trough levels tomorrow morning before medications are given. Tomorrow give TRAFFIC OPERATOR doses, then we will change according to the levels. Our goal of everolimus level close to 5, and tacrolimus level close to 3. --Monitor urine output, daily electrolytes and kidney function -Daily monitor CBC, CMP, and INR -Avoid sedatives including narcotics -Call hepatology if you have any questions or concerns Patient was seen and discussed with Dr. Delmy Munguia MD Gastroenterology and hepatology fellow Pager: [phone] History of Present Illness: Liz Hendricks is a 76 y.o. male with past medical history significant for OLT in 12/2012 for ESRD 2/2 Suarez and alcohol abuse without postsurgical complications, immunocompromised status on everolimus 2 mg twice daily, and tacrolimus 1 mg twice daily, end-stage renal disease on hemodialysis Sunday, numerous skin cancers both BCC and SCC,, status post resection treatment, recently diagnosed lung adenocarcinoma, hypertension, and GERD who was admitted for positive acid-fast bacteria culture and sputum suspicious for MAC infection. Hepatology team was consulted for further recommendations on the immunosuppressive therapy given his OLT Patient was recently diagnosed with lung adenocarcinoma 2 months ago, when he was admitted to outside hospital for worsening shortness breath. Had bronchoscopy that showed lung mass, with biopsies confirming adenocarcinoma. He was discharged to SNF to follow-up with oncology here at . Acid-fast stain turn positive 08/31, so patient was transferred to for admission. Patient denies any recent changes in his symptoms, continued to report cough and shortness breath, but denies hemoptysis, fevers, chills, recent TB exposure , or outside travel. He reports significant weight loss of 30 pounds over the last 10 weeks, and appetite loss. Problem hepatology standpoint, patient follows up with Dr. Regan Brock at . Last seen on 05/14/2017. Patient had OLT in 12/2012 for Suarez/alcohol related cirrhosis, then he developed chronic kidney disease and required hemodialysis. His graft function has been stable without major complications. He remained on immunosuppressive therapy with tacrolimus and everolimus. Most recent tacro levels 7.7 on 05/14/17, and everolimus 19.6 on 05/14, then most recently 8.6 on 05/31 His admission labs on 08/31 showed hemoglobin 8.6, WBC 5.7, platelet 235, MCV 77, sodium 134, potassium 3.4, BUN 29, creatinine 8.42, AST 13, LT 9, alkaline phosphatase 56, and total bili 0.3. Blood cultures have been negative. Past Medical History: Diagnosis Date Arthritis Ascites Basal cell carcinoma CKD (chronic kidney disease) 06/06/2012 COPD (chronic obstructive pulmonary disease) (HCC) Dialysis patient (HCC) M-W-F Edema End-stage liver disease (HCC) Gastrointestinal disorder GERD (gastroesophageal reflux disease) Hepatic encephalopathy (HCC) 07/25/2012 History of alcohol abuse 08/02/2012 History of esophageal varices 08/02/2012 Hypertension 08/02/2012 Murmur Pancreatitis 2013 Personal history of ascites 06/06/2012 Squamous cell carcinoma Transplant Liver Type II diabetes mellitus (HCC) 08/02/2012 Past Surgical History: Procedure Laterality Date COLONOSCOPY 10/2010 HX ENDOSCOPY 10/2011 HERNIA REPAIR Right 2012 right inguinal hernia repair TRANSPLANT 01/06/13 liver transplant SURGERY 2014 biliary stents placed then removed HX JOINT REPLACEMENT Right 02/03/15 ID ARVEN ANAST OPN UPR ARM BASILIC VEIN TRPOS Right 12/21/2015 CREATION RADIOCEPHALIC ARTERIOVENOUS FISTULA performed by Fortino Hamm MD [facility] OR/Periop ID ADJT TIS TRNS/REARGMT F/C/C/M/N/A/G/H/F 10SQCM/< Right 04/07/2016 MOHS CLOSURE RIGHT LATERAL SCALP WITH LOCAL TISSUE REARRANGEMENT 15CM performed by Norris Henriquez MD at [facility] OR/Periop SKIN GRAFT N/A 01/26/2017 LOCAL TISSUE TRANSFER TO SCALP VERTEX performed by Norris Henriquez MD at [facility] OR/Periop COLONOSCOPY PLANTAR FASCIA SURGERY Bilateral Social History Social History Marital status: Spouse name: N/A Number of children: N/A Years of education: N/A Social History Main Topics Smoking status: Former Smoker Packs/day: 2.00 Years: 30.00 Quit date: 05/28/1988 Smokeless tobacco: Never Used Alcohol use No Comment: None since 2009 Drug use: No Sexual activity: Not on file Other Topics Concern Not on file Social History Narrative No narrative on file Family history reviewed; non-contributory Allergies: Adhesive Scheduled Meds: albuterol 0.5% (PROVENTIL; VENTOLIN) nebulizer solution 2.5 mg 2.5 mg Inhalation BID & PRN amLODIPine (NORVASC) tablet 10 mg 10 mg Oral QDAY aspirin chewable tablet 81 mg 81 mg Oral QDAY atorvastatin (LIPITOR) tablet 10 mg 10 mg Oral QDAY doxazosin (CARDURA) tablet 2 mg 2 mg Oral QDAY everolimus (immunosuppressive) (ZORTRESS) tablet 2 mg 2 mg Oral BID heparin (porcine) PF syringe 5,000 Units 5,000 Units Subcutaneous Q8H ipratropium bromide (ATROVENT) 0.02 % nebulizer solution 0.5 mg 0.5 mg Inhalation BID & PRN oxybutynin XL (DITROPAN XL) tablet 5 mg 5 mg Oral QDAY pantoprazole DR (PROTONIX) tablet 40 mg 40 mg Oral QDAY(21) tacrolimus (PROGRAF) capsule 1 mg 1 mg Oral BID Continuous Infusions: PRN and Respiratory Meds: Review of Systems: A 14 point review of systems was negative except for: what's in HPI Vital Signs: Last Filed in 24 hours Vital Signs: 24 hour Range BP: 140/59 (09/01 730) Temp: 36.8 C (98.3 F) (09/01 730) Pulse: 83 (09/01 730) Respirations: 19 PER MINUTE (09/01 730) SpO2: 94 % (09/01 730) O2 Delivery: Nasal Cannula (09/01 730) Height: 189 cm (74.4") (08/31 2044) BP: (123-140)/(59-69) Temp: [36.5 C (97.7 F)-36.8 C (98.3 F)] Pulse: [74-83] Respirations: [12 PER MINUTE-19 PER MINUTE] SpO2: [92 %-97 %] O2 Delivery: Nasal Cannula Physical Exam: General: Alert, cooperative, no distress, appears stated age. Head: Normocephalic, without obvious abnormality, atraumatic Throat: Lips, mucosa and tongue normal. Lungs: Clear to auscultation bilaterally Chest wall: No tenderness or deformity. Heart: Regular rate and rhythm, S1, S2 normal, no murmur, click rub or gallop Abdomen: soft, non distended. Non tender, BS+ Extremities: Extremities normal, atraumatic, no cyanosis or edema Skin: Skin color, texture, turgor normal. No rashes or lesions Lymph nodes: Cervical, supraclavicular and axillary nodes normal Neurologic: CNII - XII intact. Normal strength, sensation and reflexes throughout. Lab/Radiology/Other Diagnostic Tests: 24-hour labs: Results for orders placed or performed during the hospital encounter of (from the past 24 hour(s)) CULTURE-BLOOD W/SENSITIVITY Collection Time: 08/31/17 6:15 PM Result Value Ref Range Battery Name BLOOD CULTURE Specimen Description BLOOD LEFT ANTECUBITAL aerobic bottle only Special Requests Culture performed on specimen with less than the recommended volume of 10 ml/bottle. Decreased volume will affect sensitivity of culture. Culture NO GROWTH 1 DAY Report Status CULTURE-BLOOD W/SENSITIVITY Collection Time: 08/31/17 6:30 PM Result Value Ref Range Battery Name BLOOD CULTURE Specimen Description BLOOD LEFT HAND Special Requests NONE Culture NO GROWTH 1 DAY Report Status COMPREHENSIVE METABOLIC PANEL Collection Time: 08/31/17 6:30 PM Result Value Ref Range Sodium 134 (L) 137 - 147 MMOL/L Potassium 3.4 (L) 3.5 - 5.1 MMOL/L Chloride 94 (L) 98 - 110 MMOL/L Glucose 98 70 - 100 MG/DL Blood Urea Nitrogen 29 (H) 7 - 25 MG/DL Creatinine 8.42 (H) 0.4 - 1.24 MG/DL Calcium 10.3 8.5 - 10.6 MG/DL Total Protein 6.2 6.0 - 8.0 G/DL Total Bilirubin 0.3 0.3 - 1.2 MG/DL Albumin 3.4 (L) 3.5 - 5.0 G/DL Alk Phosphatase 56 25 - 110 U/L AST (SGOT) 13 7 - 40 U/L CO2 28 21 - 30 MMOL/L ALT (SGPT) 9 7 - 56 U/L Anion Gap 12 3 - 12 eGFR Non 6 (L) >60 mL/min eGFR 8 (L) >60 mL/min CBC AND DIFF Collection Time: 08/31/17 6:30 PM Result Value Ref Range White Blood Cells 5.7 4.5 - 11.0 K/UL RBC 3.35 (L) 4.4 - 5.5 M/UL Hemoglobin 8.6 (L) 13.5 - 16.5 GM/DL Hematocrit 25.8 (L) 40 - 50 % MCV 77.0 (L) 80 - 100 FL MCH 25.6 (L) 26 - 34 PG MCHC 33.2 32.0 - 36.0 G/DL RDW 21.0 (H) 11 - 15 % Platelet Count 235 150 - 400 K/UL MPV 6.6 (L) 7 - 11 FL Neutrophils 79 (H) 41 - 77 % Lymphocytes 11 (L) 24 - 44 % Monocytes 9 4 - 12 % Eosinophils 1 0 - 5 % Basophils 0 0 - 2 % Absolute Neutrophil Count 4.50 1.8 - 7.0 K/UL Absolute Lymph Count 0.60 (L) 1.0 - 4.8 K/UL Absolute Monocyte Count 0.50 0 - 0.80 K/UL Absolute Eosinophil Count 0.10 0 - 0.45 K/UL Absolute Basophil Count 0.00 0 - 0.20 K/UL MAGNESIUM Collection Time: 08/31/17 6:30 PM Result Value Ref Range Magnesium 2.0 1.6 - 2.6 mg/dL PHOSPHORUS Collection Time: 08/31/17 6:30 PM Result Value Ref Range Phosphorus 6.6 (H) 2.0 - 4.0 MG/DL PROTIME INR (PT) Collection Time: 08/31/17 7:07 PM Result Value Ref Range INR 1.1 0.8 - 1.2 PTT (APTT) Collection Time: 08/31/17 7:07 PM Result Value Ref Range APTT 27.7 21.0 - 39.0 SEC CBC AND DIFF Collection Time: 09/01/17 8:00 AM Result Value Ref Range White Blood Cells 4.9 4.5 - 11.0 K/UL RBC 3.42 (L) 4.4 - 5.5 M/UL Hemoglobin 8.6 (L) 13.5 - 16.5 GM/DL Hematocrit 26.2 (L) 40 - 50 % MCV 76.6 (L) 80 - 100 FL MCH 25.0 (L) 26 - 34 PG MCHC 32.6 32.0 - 36.0 G/DL RDW 20.2 (H) 11 - 15 % Platelet Count 245 150 - 400 K/UL MPV 6.1 (L) 7 - 11 FL Neutrophils 78 (H) 41 - 77 % Lymphocytes 14 (L) 24 - 44 % Monocytes 7 4 - 12 % Eosinophils 1 0 - 5 % Basophils 0 0 - 2 % Absolute Neutrophil Count 3.90 1.8 - 7.0 K/UL Absolute Lymph Count 0.70 (L) 1.0 - 4.8 K/UL Absolute Monocyte Count 0.30 0 - 0.80 K/UL Absolute Eosinophil Count 0.00 0 - 0.45 K/UL Absolute Basophil Count 0.00 0 - 0.20 K/UL COMPREHENSIVE METABOLIC PANEL Collection Time: 09/01/17 8:00 AM Result Value Ref Range Sodium 135 (L) 137 - 147 MMOL/L Potassium 3.1 (L) 3.5 - 5.1 MMOL/L Chloride 95 (L) 98 - 110 MMOL/L Glucose 112 (H) 70 - 100 MG/DL Blood Urea Nitrogen 34 (H) 7 - 25 MG/DL Creatinine 9.32 (H) 0.4 - 1.24 MG/DL Calcium 10.7 (H) 8.5 - 10.6 MG/DL Total Protein 6.3 6.0 - 8.0 G/DL Total Bilirubin 0.3 0.3 - 1.2 MG/DL Albumin 3.2 (L) 3.5 - 5.0 G/DL Alk Phosphatase 61 25 - 110 U/L AST (SGOT) 11 7 - 40 U/L CO2 27 21 - 30 MMOL/L ALT (SGPT) 8 7 - 56 U/L Anion Gap 13 (H) 3 - 12 eGFR Non 6 (L) >60 mL/min eGFR 7 (L) >60 mL/min Pertinent radiology reviewed. Jonathon Munguia MD Pager Associated attestation - Regan Brock MD - 09/01/2017 4:20 PM CDT Formatting of this note may be different from the original. ATTESTATION I personally performed the yeh portions of the E/M visit, discussed case with resident and concur with resident documentation of history, physical exam, assessment, and treatment plan unless otherwise noted. Patient is a 76-year-old male with history of end-stage liver disease due to steatohepatitis due to suspected SUAREZ and component from alcohol status post previous liver transplant in December 2012. He has had course complicated by chronic kidney disease leading to renal failure now on hemodialysis. He has also had h/o BCC and SCC of the skin in the past. Most recently patient was found to have a chronic cough over the past 10-12 weeks. He has lost approximately 30 pounds per report. He has been managed and seen at local facilities. He underwent testing with bronchoscopy per report that showed evidence of adenocarcinoma of the lung. [facility]. He has not begun any treatments or therapies for lung cancer. He then was just notified that testing from prior bronchoscopy showed him to be positive for AFB and was recommended admission. He reports he is generally been more fatigued with decreased energy over the past 2-3 months. He denies any abdominal pain no nausea or vomiting. Reports has been in and out of outside hospital facilities. He has been on chronic immunosuppression with everolimus 2 mg twice daily tacrolimus 1 mg twice daily. Denies fevers/chills or night sweats. He otherwise had no other complaints. On exam abdomen is soft nontender nondistended with positive bowel sounds transplant incision is intact. No overt organomegaly present. Labs and imaging reviewed white blood cell count 4.9 hemoglobin 8.6 platelet count 245 INR 1.1 sodium 135 creatinine 9.3 but dialysis patient. Bilirubin 0.3 AST 11 ALT 8 alkaline phosphatase 61. Last available everolimus level is 8.6 on May 31, 2017. On May 14, 2017 tacrolimus level was 7.7 although levels were obtained after patient reportedly took medication. I had a detailed discussion with the patient today. He has multiple chronic comorbidities including previous liver transplant as well as chronic kidney disease now on hemodialysis. He has current concerns for recent diagnosis of adenocarcinoma of the lung with recent bronchoscopy with testing now with positive AFB culture. He has been admitted for further management. Overall from liver transplant perspective, liver graft function appears to be stable. He is due for updated immunosuppression levels which will likely need to be reduced with current infection and malignancy concerns. His target everolimus level would be ~5 with the tacrolimus target level ~3. Please check updated trough levels in the morning to guide management. Would recommend requesting outside lung mass biopsy and additional testing for further review. Patient may benefit from repeat imaging with updated CT chest at this time. Would recommend pulmonary and infectious disease consults to aid with management given complexities in his case. Recommend oncology consultation to assist with formulation of management plan for his lung malignancy. Continue supportive care. Staff name: Regan Brock MD Date: 09/01/2017 in this encounter Miscellaneous Notes * Care Plan - Delmy Sierra RN - 09/14/2017 2:04 PM CDT Problem: Discharge Planning Goal: Participation in plan of care Outcome: Goal Achieved Date Met: 09/14/17 Pt and son verbalized understanding of d/c instructions * Case Mgmt DC Plan - Ciera Hernandez RN - 09/14/2017 12:28 PM CDT Formatting of this note may be different from the original. Case Management Progress Note NAME:Liz Hendricks :1940 AGE: 76 y.o. ADMISSION DATE: 08/31/2017 DAYS ADMITTED: LOS: 14 days Todays Date: 09/14/2017 Plan [facility] notified Monet with [facility] of patient discharge ([phone]) (fax: [phone]) Faxed dialysis flowsheet and AVS to [facility] Interventions ? Support Support: Pt/Family Updates re:POC or DC Plan, Patient Education ? Info or Referral ? Discharge Planning Discharge Planning: [facility] Facility ? Medication Needs ? Financial ? Legal ? Other Disposition ? Expected Discharge Date Expected Discharge Date: 09/14/17 ? Transportation Does the patient need discharge transport arranged?: Yes Transportation Name, Phone and Availability #1: either facility or ambulance transport will be arrangeda t discahrge Does the patient use Medicaid Transportation?: No ? Next Level of Care (Acute Psych discharges only) ? Discharge Disposition Durable Medical Equipment No service has been selected for the patient. [facility] Destination No service has been selected for the patient. Home Care No service has been selected for the patient. [facility] Dialysis/Infusion No service has been selected for the patient. Ciera Hernandez RN, BSN Nurse Lather Apprentice Pager: [phone] * Case Mgmt DC Plan - AraizaDomingo moiseisty - 09/14/2017 11:58 AM CDT Formatting of this note may be different from the original. Case Management Progress Note NAME:Liz Hendricks :1940 AGE: 76 y.o. ADMISSION DATE: 08/31/2017 DAYS ADMITTED: LOS: 14 days Todays Date: 09/14/2017 Plan Discharge to via [facility] in [place], [place] today at 2pm via [facility] ambulance Interventions Pt still stable for d/c today. Spoke with Warren at [facility] and they can accept pt today, they now have CPAP for pt. STEFFANIE arranged ambulance transport through [facility] for 2pm and notified team, family, and nurse. STEFFANIE faxed orders to facility. ? Support Support: Pt/Family Updates re:POC or DC Plan, Patient Education ? Info or Referral ? Discharge Planning Discharge Planning: [facility] Facility ? Medication Needs ? Financial ? Legal ? Other Disposition ? Expected Discharge Date Expected Discharge Date: 09/14/17 ? Transportation Does the patient need discharge transport arranged?: Yes Transportation Name, Phone and Availability #1: either facility or ambulance transport will be arrangeda t discahrge Does the patient use Medicaid Transportation?: No ? Next Level of Care (Acute Psych discharges only) ? Discharge Disposition Arleen Araiza [facility] *[id number] Durable Medical Equipment No service has been selected for the patient. [facility] Destination No service has been selected for the patient. Home Care No service has been selected for the patient. Dialysis/Infusion No service has been selected for the patient. * Care Plan - Berkley Muñoz RN - 09/14/2017 12:41 AM CDT Problem: Discharge Planning Goal: Participation in plan of care Outcome: Goal Ongoing Pt and family participate in plan of care. Goal: Knowledge regarding plan of care Outcome: Goal Ongoing Pt and family are updated on plan of care. Goal: Prepared for discharge Outcome: Goal Ongoing Pt and family are hoping to DC tomorrow. * Patient Education - Berkley Muñoz RN - 09/13/2017 9:05 PM CDT Medication Education Liz Hendricks accepted counseling and was engaged. he verbalized understanding. The following medications were discussed: Eliquis Doxazosin Protonix -Discussed the importance of shifting body weight. Patient understood. Where indicated, the patient was provided with additional medication and/or disease-state information. All patient questions were answered and patient acknowledged understanding of the medications, side effects and other pertinent medication information. Follow up should occur daily. 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 He had PET scan today that demonstrated right upper lobe enhancement and paratracheal lymph node, as well as pleural-based enhancement. Hepatology Follow-ups: Appointment Date/Time: 11/26/17 @ 1020 Appointment Provider: Dr Regan Brock [employer]or Of [employer] Follow up: Labs, EGD/Colon Labs: Tacro/Everolymus trough to be collected by facility on 09/17/17. This service will fax order to Facility. Endoscopy Appointment : Patient scheduled with Dr Hernandez [phone] on for EGD/Colon. Due to patients recent illness he has been unable to reschedule. Given recent adenocarcinoma of the lung diagnosis this will be deferred at this time. ~Will be available if patient needs anything from a hepatology standpoint while in the hospital Sunday through Sunday 7am-5pm ~Discharge information to be sent to the hepatology provider & team that will follow with patient in the outpatient clinic. Giovanna Lagos RN-BSN Inpatient Hepatology Nurse Coordinator Pgr: [phone] [facility] [phone] * Case Mgmt DC Plan - Jennifer Varela - 09/13/2017 9:47 AM CDT Formatting of this note may be different from the original. Case Management Progress Note NAME:Liz Hendricks :1940 AGE: 76 y.o. ADMISSION DATE: 08/31/2017 DAYS ADMITTED: LOS: 13 days Todays Date: 09/13/2017 Plan Addendum: SNF unable to confirm delivery of Cpap to facility. Pt will not discharge today. Sw notified pt/family. Team is aware. Transfer packet, PCS, and TPOPP are in the wall unit. Steffanie contacted [employer] and faxed additional documents to process pt home Cpap. Interventions ? Support Support: Pt/Family Updates re:POC or DC Plan, Patient Education ? Info or Referral ? Discharge Planning Discharge Planning: [facility] Facility Covering Steffanie coordinating discharge to [facility]. Steffanie received call from carissa Villalpando, pager [phone]. Pt needs a Cpap that will auto titrate. Steffanie contacted [facility] at [phone]. Pt current Cpap does not have the auto titrate ability. A new prescription will need to be faxed to [facility] at . Steffanie paged Carissa Villalpando, to obtain script to fax to [facility]. Steffanie contacted Warren at [facility] to confirm if they could order a Cpap with auto titrate for pt to use at the facility until his new Cpap is delivered. Warren will confirm with their DME supplier and contact steffanie. Warren at [facility] called Steffanie. He will be able to get a Cpap delivered to their facility today as long as they received the order for the auto titrate Cpap. Steffanie faxed [facility] and [facility] the new Cpap orders. Steffanie discussed pt in huddle. It SNF can get the Cpap today, pt can discharge. Steffanie confirmed the above with Warren in admissions. Steffanie arranged a 1:30pm [facility] ambulance transport and completed PCS. Steffanie notified team for orders and TPOPP. Steffanie notified RN. Steffanie printed and will deliver transfer packet. ? Medication Needs ? Financial ? Legal ? Other Disposition ? Expected Discharge Date Expected Discharge Date: 09/13/17 ? Transportation Does the patient need discharge transport arranged?: Yes Transportation Name, Phone and Availability #1: either facility or ambulance transport will be arrangeda t discahrge Does the patient use Medicaid Transportation?: No ? Next Level of Care (Acute Psych discharges only) ? Discharge Disposition Durable Medical Equipment No service has been selected for the patient. Destination No service has been selected for the patient. Home Care No service has been selected for the patient. Dialysis/Infusion No service has been selected for the patient. Jennifer Varela, [facility] *[id number] * Care Plan - Ilda Uribe - 09/13/2017 2:29 AM CDT Problem: Infection, Risk of Goal: Absence of infection Outcome: Goal Ongoing Strict handwashing enforced Problem: Discharge Planning Goal: Knowledge regarding plan of care Outcome: Goal Ongoing Patient informed on plan of care for evening. Goal: Prepared for discharge Outcome: Goal Ongoing Patient will d/c back to facility when medically stable Problem: Falls, High Risk of Goal: Absence of falls-Adult Patient Outcome: Goal Ongoing Pt is up with two assist and a walker. No falls have occurred this shift Problem: Respiratory Impairment (Non-Ventilated Patient) Goal: Effective gas exchange Outcome: Goal Ongoing Pt O2 has been 88-95% on 4-5L of oxygen Problem: Nutrition Deficit Goal: Adequate nutritional intake Outcome: Goal Ongoing Patient on nepro supplements PRN. Problem: Infection, Risk of, Central Venous Catheter-Associated Bloodstream Infection Goal: Absence of CVC Associated Bloodstream infection Outcome: Goal Ongoing CVC flushes and and draws back blood, aseptic technique used. * Patient Education - DawsonDilciaIlda - 09/13/2017 12:30 AM CDT Medication Education Liz Hendricks accepted counseling and was receptive. he verbalized understanding. The following medications were discussed: Eliquis Doxazosin Zortress protonix Prograf Where indicated, the patient was provided with additional medication and/or disease-state information. All patient questions were answered and patient acknowledged understanding of the medications, side effects and other pertinent medication information. Patient was educated on pressure ulcer prevention, I&O, and plan of care. Follow up should occur daily. Continue to address: indications Ildaaz URIBE * Care Plan - Monalisa Davey RN - 09/12/2017 6:09 PM CDT Problem: Discharge Planning Goal: Participation in plan of care Outcome: Goal Ongoing Pt verbalized understanding of change in plan of care to delay discharge by one day Goal: Prepared for discharge Outcome: Goal Ongoing Pt and family prepared for discharge by verbalizing care plan once discharged Problem: Falls, High Risk of Goal: Absence of falls-Adult Patient Outcome: Goal Ongoing No falls this shift Problem: Respiratory Impairment (Non-Ventilated Patient) Goal: Effective gas exchange Outcome: Goal Ongoing Pt on continuous pulse ox * Case Mgmt DC Plan - Jennifer Varela - 09/12/2017 11:57 AM CDT Formatting of this note may be different from the original. Case Management Progress Note NAME:Liz Hendricks :1940 AGE: 76 y.o. ADMISSION DATE: 08/31/2017 DAYS ADMITTED: LOS: 12 days Todays Date: 09/12/2017 Plan Pt is not medically stable to discharge today. Anticipate discharge to [facility] tomorrow. Interventions ? Support Support: Pt/Family Updates re:POC or DC Plan, Patient Education ? Info or Referral ? Discharge Planning Discharge Planning: [facility] Facility Covering Sw confirmed with Warren at [facility] that transportation is still arranged for 1pm. Steffanie paged team to confirm pt discharge plan. Sw participated in huddle. Pt will not discharge today. Pt needs at Bipap, not a Cpap. Steffanie contacted Warren in admissions at [facility], , and notified him pt is not ready for discharge, potentially tomorrow. Sw informed Warren that pt needs a Bipap. Warrne will look into ordering a Bipap for pt. Steffanie faxed updates to [phone]. Sw notified pt spouse. Primary Sw will continue to follow for discharge planning. Addendum: [facility] is not able to provide discharge transportation /Sunday. Steffanie spoke with team. Pt will need ambulance transportation due to distance and oxygen needs. Steffanie informed family and Warren at [facility] [phone]. ? Medication Needs ? Financial ? Legal ? Other Disposition ? Expected Discharge Date Expected Discharge Date: 09/13/17 ? Transportation Does the patient need discharge transport arranged?: Yes Transportation Name, Phone and Availability #1: either facility or ambulance transport will be arrangeda t discahrge Does the patient use Medicaid Transportation?: No ? Next Level of Care (Acute Psych discharges only) ? Discharge Disposition Durable Medical Equipment No service has been selected for the patient. Destination No service has been selected for the patient. Home Care No service has been selected for the patient. Dialysis/Infusion No service has been selected for the patient. Jennifer Varela, [facility] *[id number] * Care Plan - Ilda Uribe - 09/12/2017 12:43 AM CDT Problem: Infection, Risk of Goal: Absence of infection Outcome: Goal Ongoing Strict handwashing enforced this shift Problem: Discharge Planning Goal: Participation in plan of care Outcome: Goal Ongoing Pt kept up to date on plan of care for evening Goal: Prepared for discharge Outcome: Goal Ongoing Pt plan to d/c tomorrow after dialysis Problem: Falls, High Risk of Goal: Absence of falls-Adult Patient Outcome: Goal Ongoing Fall bundle in place, bed alarm on. Problem: Respiratory Impairment (Non-Ventilated Patient) Goal: Effective gas exchange Outcome: Goal Ongoing Pt trial of home cpap=87% RT switched pt to hospital cpap Problem: Mobility/Activity Intolerance Goal: Maximize functional ADL's and mobility outcomes Outcome: Goal Ongoing Patient up with two and a walker * Patient Education - DawsonDilciaIlda - 09/11/2017 8:49 PM CDT Medication Education Liz Hendricks accepted counseling and was receptive. he verbalized understanding. The following medications were discussed: Eliquis Doxazosin Zortress protonix Prograf Where indicated, the patient was provided with additional medication and/or disease-state information. All patient questions were answered and patient acknowledged understanding of the medications, side effects and other pertinent medication information. Patient was educated on pressure ulcer prevention, I&O, and plan of care. Follow up should occur daily. Continue to address: indications Ilda URIBE * Case Mgmt DC Plan - Arleen Araiza - 09/11/2017 4:06 PM CDT Formatting of this note may be different from the original. Case Management Progress Note NAME:Liz Hendricks :1940 AGE: 76 y.o. ADMISSION DATE: 08/31/2017 DAYS ADMITTED: LOS: 11 days Todays Date: 09/11/2017 Plan Discharge back to [facility] tomorrow at 1pm via facility transport Interventions Notified pt ready for d/c tomorrow. Called Warren in admissions at [facility], , and notified him pt ready for d/c tomorrow. Faxed updates to [phone]. Warren set up facility transport for 1pm tomorrow. Notified team and family. Will f/u tomorrow. ? Support ? Info or Referral ? Discharge Planning ? Medication Needs ? Financial ? Legal ? Other Disposition ? Expected Discharge Date Expected Discharge Date: 09/12/17 ? Transportation Does the patient need discharge transport arranged?: Yes Transportation Name, Phone and Availability #1: either facility or ambulance transport will be arrangeda t discahrge Does the patient use Medicaid Transportation?: No ? Next Level of Care (Acute Psych discharges only) ? Discharge Disposition Arleen Araiza [facility] *[id number] Durable Medical Equipment No service has been selected for the patient. Destination No service has been selected for the patient. Home Care No service has been selected for the patient. Dialysis/Infusion No service has been selected for the patient. * Care Plan - Ilda Uribe - 09/10/2017 11:40 PM CDT Problem: Infection, Risk of Goal: Absence of infection Outcome: Goal Ongoing Strict handwashing enforced this shift Problem: Discharge Planning Goal: Knowledge regarding plan of care Outcome: Goal Ongoing Pt updated on plan of care Goal: Prepared for discharge Outcome: Goal Ongoing Pt will d/c when medically stable Problem: Falls, High Risk of Goal: Absence of falls-Adult Patient Outcome: Goal Ongoing Pt up with 2 assist and a walker, no falls this shift Problem: Respiratory Impairment (Non-Ventilated Patient) Goal: Effective gas exchange Outcome: Goal Ongoing CPAP on at night, O2 has been between 90-96% * Patient Education - Ilda Uribe - 09/10/2017 10:58 PM CDT Medication Education Liz Hendricks accepted counseling and was engaged. he verbalized understanding. The following medications were discussed: Eliquis Cardura everolimus Protonix Prograf Where indicated, the patient was provided with additional medication and/or disease-state information. All patient questions were answered and patient acknowledged understanding of the medications, side effects and other pertinent medication information. Patient educated on plan of care, I&O, O2 saturation and pressure ulcer prevention Follow up should occur as needed. Continue to address: indications Ilda LOOCK * Patient Education - Blanka Uriarte - 09/10/2017 5:31 PM CDT Education Liz Hendricks accepted counseling and was engaged. he verbalized understanding. The following medications were discussed: Eliquis, Aspirin, Lipitor, Lexapro, Zortress, Oxybutynin, Protonix, Where indicated, the patient was provided with additional medication and/or disease-state information. All patient questions were answered and patient acknowledged understanding of the medications, side effects and other pertinent medication information. Follow up should occur daily. Continue to address: indications Blanka Uriarte * Care Plan - Blanka Uriarte - 09/10/2017 5:31 PM CDT Problem: Infection, Risk of Goal: Absence of infection Outcome: Goal Ongoing Patient given one bag IV zosyn this shift. Goal: Knowledge of Infection Control Procedures Outcome: Goal Ongoing RN continue education this shift. Problem: Discharge Planning Goal: Participation in plan of care Outcome: Goal Ongoing Patient and family are active in plan of care this shift. Problem: Falls, High Risk of Goal: Absence of falls-Adult Patient Outcome: Goal Ongoing NO falls this shift. Fall bundle in place this shift. Problem: Respiratory Impairment (Non-Ventilated Patient) Goal: Effective gas exchange Outcome: Goal Ongoing Patient on 4.5- 5 L oxygen via [place] this shift. Patient using bipap at night with continued pulse ox Problem: Nutrition Deficit Goal: Adequate nutritional intake Outcome: Goal Ongoing Patient ate breakfast and 40% of dinner. Patient did not eat in dialysis today at lunch time. Patient education done on importance of nutrition. RN education about boost and breakfast blend drinks for patient to have if he isnt feeling hungry. Patient jerrell to ask if he is not able to eat. Problem: Infection, Risk of, Central Venous Catheter-Associated Bloodstream Infection Goal: Absence of CVC Associated Bloodstream infection Outcome: Goal Ongoing CHG care done this shift. * Patient Education - Blanka Uriarte - 09/10/2017 10:08 AM CDT Education Liz Hendricks accepted counseling and was engaged. he verbalized understanding. The following medications were discussed: Proscar Where indicated, the patient was provided with additional medication and/or disease-state information. All patient questions were answered and patient acknowledged understanding of the medications, side effects and other pertinent medication information. Follow up should occur as needed. Patient is off unit for dialysis. Patient education done on importance of taking Proscar at the same time daily even on days of dialysis. Other medications held until patient returns Blanka Uriarte * Care Plan - Berkley Muñoz RN - 09/10/2017 12:22 AM CDT Problem: Discharge Planning Goal: Participation in plan of care Outcome: Goal Ongoing Pt and family participate in plan of care. Goal: Knowledge regarding plan of care Outcome: Goal Ongoing Pt and family are updated on plan of care. Goal: Prepared for discharge Outcome: Goal Ongoing Pt and family are working towards discharge. Problem: Falls, High Risk of Goal: Absence of falls-Adult Patient Outcome: Goal Ongoing Fall bundle in place. No falls this shift. * Patient Education - Berkley Muñoz RN - 09/09/2017 8:49 PM CDT Medication Education Liz Hendricks accepted counseling and was engaged. he verbalized understanding. The following medications were discussed: Eliquis Doxazosin Zortress Protonix Prograf -Discussed with patient the importance of turning every 2 hours and the importance it has to prevent pressure ulcers. Patient understood. Where indicated, the patient was provided with additional medication and/or disease-state information. All patient questions were answered and patient acknowledged understanding of the medications, side effects and other pertinent medication information. Follow up should occur daily. Continue to address: indications Berkley Muñoz RN * Care Plan - Apryl Dobbs RN - 09/09/2017 11:01 AM CDT Problem: Infection, Risk of Goal: Absence of infection Outcome: Goal Ongoing Staff are following handwashing protocol to prevent the spread of infection. Problem: Discharge Planning Goal: Participation in plan of care Outcome: Goal Ongoing Patient is actively involved in the plan of care. Goal: Prepared for discharge Outcome: Goal Ongoing Patient is educated throughout the shift in preparation of a future discharge. Problem: Falls, High Risk of Goal: Absence of falls-Adult Patient Outcome: Goal Ongoing Patient is placed on the high fall risk bundle to prevent falls this stay. Problem: Respiratory Impairment (Non-Ventilated Patient) Goal: Effective gas exchange Outcome: Goal Ongoing Patient is provided oxygen to maintain effective gas exchange. Problem: Infection, Risk of, Central Venous Catheter-Associated Bloodstream Infection Goal: Absence of CVC Associated Bloodstream infection Outcome: Goal Ongoing The central line bundle is in place to prevent the spread of infection. Problem: Mobility/Activity Intolerance Goal: Maximize functional ADL's and mobility outcomes Outcome: Goal Ongoing Patient is working with PT to maximize functional outcomes. Problem: Self-Care Deficit Goal: Maximize ADL functioning Outcome: Goal Ongoing Patient is working with OT to maximize functional outcomes. * Care Plan - Berkley Muñoz RN - 09/09/2017 12:39 AM CDT Problem: Discharge Planning Goal: Participation in plan of care Outcome: Goal Ongoing Pt and family are updated on plan of care. Problem: Falls, High Risk of Goal: Absence of falls-Adult Patient Outcome: Goal Ongoing Fall bundle in place. No falls this shift. * Patient Education - Berkley Muñoz RN - 09/08/2017 8:35 PM CDT Medication Education Liz Hendricks accepted counseling and was engaged. he verbalized understanding. The following medications were discussed: Eliquis Doxazosin Zortress Protonix Zosyn Prograf -Encouraged patient to shift weight. Explained to patient why and it was for his safety to prevent bed ulcers. Patient understood. Where indicated, the patient was provided with additional medication and/or disease-state information. All patient questions were answered and patient acknowledged understanding of the medications, side effects and other pertinent medication information. Follow up should occur daily. Continue to address: indications Berkley Muñoz RN * Patient Education - Apryl Dobbs RN - 09/08/2017 4:57 PM CDT Medication Education Liz Hendricks accepted counseling and was interactive. he demonstrated understanding. The following medications were discussed: Zosyn, Renvela, Prograf, Zortress, Lexapro, Lipitor, Aspirin Where indicated, the patient was provided with additional medication and/or disease-state information. All patient questions were answered and patient acknowledged understanding of the medications, side effects and other pertinent medication information. Follow up should occur as needed. Continue to address: indications Apryl Dobbs RN * Care Plan - Apryl Dobbs RN - 09/08/2017 4:57 PM CDT Problem: Infection, Risk of Goal: Absence of infection Outcome: Goal Ongoing Staff are following handwashing protocol to prevent the spread of infection. Problem: Discharge Planning Goal: Participation in plan of care Outcome: Goal Ongoing Patient is actively involved in the plan of care. Problem: Falls, High Risk of Goal: Absence of falls-Adult Patient Outcome: Goal Ongoing Patient is placed on the high fall risk bundle to prevent falls this stay. Problem: Respiratory Impairment (Non-Ventilated Patient) Goal: Effective gas exchange Outcome: Goal Ongoing Patient is provided oxygen to maintain gas exchange. Problem: Nutrition Deficit Goal: Adequate nutritional intake Outcome: Goal Ongoing Patient is encouraged to eat throughout the shift. Problem: Infection, Risk of, Central Venous Catheter-Associated Bloodstream Infection Goal: Absence of CVC Associated Bloodstream infection Outcome: Goal Ongoing The central line bundle has been in place to prevent infection. Problem: Mobility/Activity Intolerance Goal: Maximize functional ADL's and mobility outcomes Outcome: Goal Ongoing Patient is working with PT to maximize functional outcomes. Problem: Self-Care Deficit Goal: Maximize ADL functioning Outcome: Goal Ongoing Patient is working with OT to maximize ADL functioning. * Care Plan - Francia Bonds OT - 09/08/2017 3:01 PM CDT Problem: Self-Care Deficit Goal: Maximize ADL functioning Outcome: Goal Ongoing Maximize ADL independence * Care Plan - Stephanie Balderrama - 09/08/2017 12:36 AM CDT Problem: Infection, Risk of Goal: Absence of infection Outcome: Goal Ongoing Handwashing procedures followed according to [facility] policy. Goal: Knowledge of Infection Control Procedures Outcome: Goal Ongoing Patient is no longer under isolation precautions. Problem: Discharge Planning Goal: Knowledge regarding plan of care Outcome: Goal Ongoing Patient educated on the longevity differences between IV and oral anti- coagulant medications. Problem: Falls, High Risk of Goal: Absence of falls-Adult Patient Outcome: Goal Ongoing High risk fall bundle is being implemented. Problem: Respiratory Impairment (Non-Ventilated Patient) Goal: Effective gas exchange Outcome: Goal Ongoing Patient on continuous pulse oximetry. * Patient Education - Stephanie Balderrama - 09/08/2017 12:27 AM CDT Medication Education Liz Hendricks accepted counseling and was receptive. he verbalized understanding. The following medications were discussed: Eliquis Doxazosin Zortress Protonix Prograf Where indicated, the patient was provided with additional medication and/or disease-state information. All patient questions were answered and patient acknowledged understanding of the medications, side effects and other pertinent medication information. Patient was educated on routine repositioning and elevating heels to help prevent pressure ulcers. Patient also educated on signs of allergic reaction due to starting a new medication, Eliquis. Follow up should occur as needed. Continue to address: certain medications Stephanie Tacos * Patient Education - Mariella Morris RN - 09/07/2017 2:22 PM CDT Medication Education Liz Hendricks accepted counseling and was engaged. he verbalized understanding. The following medications were discussed: Amlodipine Aspirin Lipitor Lexapro Zortress Zosyn Renvela Prograf Heparin Drip Dialysis Ambulation with walker Where indicated, the patient was provided with additional medication and/or disease-state information. All patient questions were answered and patient acknowledged understanding of the medications, side effects and other pertinent medication information. Follow up should occur daily. Continue to address: indications Mariella Morris RN * Care Plan - Mariella Morris RN - 09/07/2017 2:22 PM CDT Problem: Infection, Risk of Goal: Absence of infection Outcome: Goal Ongoing Patient receiving IV abx. Problem: Discharge Planning Goal: Participation in plan of care Outcome: Goal Ongoing Involved in plan of care this shift, receiving Dialysis. Problem: Falls, High Risk of Goal: Absence of falls-Adult Patient Outcome: Goal Ongoing High fall bundle in place, bed locked in low position with bed alarm on. Problem: Respiratory Impairment (Non-Ventilated Patient) Goal: Effective gas exchange Outcome: Goal Ongoing Patient maintains oxygen sat >92% On 2 - 4 L NC. Problem: Infection, Risk of, Central Venous Catheter-Associated Bloodstream Infection Goal: Absence of CVC Associated Bloodstream infection Outcome: Goal Ongoing Central line clean, dry and intact. CHG care to be performed. * Anesthesia Post Op Day 1 - Shawn Castro, DO - 09/07/2017 6:39 AM CDT Formatting of this note may be different from the original. Anesthesia Follow-Up Evaluation: Post-Procedure Day One Name: Liz Hendricks : 1940 Age: 76 y.o. Sex : male Procedure Date: 09/06/2017 Procedure: Procedure(s): BRONCHOSCOPY WITH LAVAGE BRONCHOSCOPY WITH BIOPSY- no fluro needed- HIGH RISK FOLLOW PROTOCOL Physical Assessment Height: 189 cm (74.41") Weight: (S) 91.5 kg (201 lb 11.5 oz) Vital Signs (Last Filed in 24 hours) BP: 114/48 (09/07 314) Temp: 36.7 C (98 F) (09/07 314) Pulse: 79 (09/07 0618) Respirations: 18 PER MINUTE (09/07 617) SpO2: 95 % (09/07 617) O2 Delivery: CPAP/BiPAP (Pt Owned) (09/07 314) SpO2 Pulse: 71 (09/06 1531) Patient History Allergies Allergies Allergen Reactions Adhesive BLISTERS Skin tears Medications Scheduled Meds: albuterol 0.5% (PROVENTIL; VENTOLIN) nebulizer solution 2.5 mg 2.5 mg Inhalation BID & PRN amLODIPine (NORVASC) tablet 10 mg 10 mg Oral QDAY aspirin chewable tablet 81 mg 81 mg Oral QDAY atorvastatin (LIPITOR) tablet 10 mg 10 mg Oral QDAY doxazosin (CARDURA) tablet 2 mg 2 mg Oral QDAY escitalopram oxalate (LEXAPRO) tablet 10 mg 10 mg Oral QDAY everolimus (immunosuppressive) (ZORTRESS) tablet 1 mg 1 mg Oral BID heparin (porcine) BOLUS for continuous inf (bag) 1,830-3,660 Units 20-40 Units/ kg Intravenous As Prescribed ipratropium bromide (ATROVENT) 0.02 % nebulizer solution 0.5 mg 0.5 mg Inhalation BID & PRN oxybutynin XL (DITROPAN XL) tablet 10 mg 10 mg Oral [address]HS pantoprazole DR (PROTONIX) tablet 40 mg 40 mg Oral QDAY(21) piperacillin/tazobactam (ZOSYN) 2.25 g/50 mL iso-osmotic IVPB 2.25 g Intravenous Q8H* sevelamer carbonate (RENVELA) tablet 800 mg 800 mg Oral TID w/ meals tacrolimus (PROGRAF) capsule 0.5 mg 0.5 mg Oral BID vancomycin, pharmacy to manage 1 each Service Per Pharmacy vancomycin, random dosing 1 each Intravenous Random Dosing Continuous Infusions: heparin (porcine) 20,000 units/D5W 500 mL infusion (std conc)(premade) 1, 847 Units/hr (09/06/17 2342) PRN and Respiratory Meds:acetaminophen Q4H PRN, ondansetron Q6H PRN, sodium chloride 0.9% (NS) IP Dialysis PRN, sodium chloride 0.9% (NS) IP Dialysis PRN, sodium chloride 0.9% (NS) IP Dialysis PRN, sodium chloride 0.9% (NS) IP Dialysis PRN Diagnostic Tests Hematology: Lab Results Component Value Date HGB 7.3 09/07/2017 HCT 21.5 09/07/2017 PLTCT 236 09/07/2017 WBC 5.0 09/07/2017 NEUT 90 09/05/2017 ANC 6.70 09/05/2017 LYMPH 17 05/31/2017 ALC 0.40 09/05/2017 LASHAWN 4 09/05/2017 AMC 0.30 09/05/2017 EOSA 1 09/05/2017 ABC 0.00 09/05/2017 BASOPHILS 0 05/31/2017 MCV 76.0 09/07/2017 MCH 25.8 09/07/2017 MCHC 34.0 09/07/2017 MPV 6.7 09/07/2017 RDW 20.3 09/07/2017 General Chemistry: Lab Results Component Value Date NA 135 09/06/2017 K 3.7 09/06/2017 CL 98 09/06/2017 CO2 30 09/06/2017 GAP 7 09/06/2017 BUN 17 09/06/2017 CR 5.13 09/06/2017 GLU 109 09/06/2017 GLU 130 05/31/2017 CA 10.2 09/06/2017 ALBUMIN 3.0 09/05/2017 OBSCA 1.12 01/06/2013 MG 1.9 09/04/2017 TOTBILI 0.5 09/05/2017 PO4 3.5 09/04/2017 Coagulation: Lab Results Component Value Date PT 13.1 07/14/2015 PTT 52.4 09/07/2017 INR 1.1 09/07/2017 Follow-Up Assessment Patient location during evaluation: floor Anesthetic Complications: Anesthetic complications: The patient did not experience any anesthestic complications. Pain: Score: 0 Management:adequate Level of Consciousness: awake and alert Hydration:acceptable Airway Patency: patent Respiratory Status: BIPAP (3L) Cardiovascular Status:hemodynamically stable Regional/Neuroaxial: * Patient Education - Boy Batista RN - 09/07/2017 1:12 AM CDT Medication Education Liz Hendricks accepted counseling and was receptive. he verbalized understanding. The following medications were discussed: Cardura Zortress Heparin Zosyn Prograf HFRB Where indicated, the patient was provided with additional medication and/or disease-state information. All patient questions were answered and patient acknowledged understanding of the medications, side effects and other pertinent medication information. Follow up should occur daily. Continue to address: indications Boy Batista RN * Care Plan - Boy Batista RN - 09/07/2017 1:12 AM CDT Problem: Falls, High Risk of Goal: Absence of falls-Adult Patient Outcome: Goal Ongoing Pt now needs assist of 2 when OOB. BSC ordered. * Case Mgmt DC Plan - Arleen Aariza - 09/06/2017 2:23 PM CDT Case Management Admission Assessment NAME:Liz Hendricks :1940 AGE: 76 y.o. ADMISSION DATE: 08/31/2017 DAYS ADMITTED: LOS: 6 days Todays Date: 09/06/2017 Source of Information: and patient Plan Plan: CM Assessment, Discharge Planning for Facility Anticipated; Pt will discharge back to [facility] when medically stable Patient Address/Phone [address] [facility] [phone] (home) Emergency Contact Extended Emergency Contact Information Primary Emergency Contact: Luoise Hendricks Address: [address] [place] [address] [facility] Mobile Relation: Spouse Secondary Emergency Contact: Obie Hendricks Address: [address] [place], [place] [id number] [place] [address] Mobile Relation: Son Healthcare Directive; pt's is his primary agent Healthcare Directive: Yes, patient has a healthcare directive Type of Healthcare Directive: Living Will, Healthcare directive, Durable power of river [place] for healthcare Location of Healthcare Directive: Patient does not have it with him/her Would patient like to fill out a (a new) Healthcare Directive?: No, patient declined Psych Advance Directive (Psych unit only): No, patient does not have a Psych Advance Directive Transportation Does the patient need discharge transport arranged?: Yes Transportation Name, Phone and Availability #1: either facility or ambulance transport will be arrangeda t discahrge Does the patient use Medicaid Transportation?: No Expected Discharge Date Expected Discharge Date: 09/10/17 Living Situation Prior to Admission ? Living Arrangements Type of Residence: prison facility Living Arrangements: Other (Comment) (facility and staff) Bathroom Shower / Tub: Walk-in Shower How many levels in the residence?: 1 Can patient live on one level if needed?: Yes Does residence have entry and/or side stairs?: No Assistance needed prior to admit or anticipated on discharge: Yes Who provides assistance or could if needed?: facility staff Are they in good health?: Yes Can support system provide 24/7 care if needed?: Yes ? Level of Function Prior level of function: Needs assist with ADLs Which ADLs require assistance?: all Who assists with ADLs?: facility staff ? Cognitive Abilities Cognitive Abilities: Alert and Oriented Financial Resources ? Coverage Primary Insurance: Medicare Secondary Insurance: Commercial insurance ([facility]) ? 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 Financial Assistance Needed? No Psychosocial Needs ? Mental Health Mental Health History: No ? Substance Use History Substance Use History Screen: No ? Other NA Current/Previous Services ? PCP Faizan Lin, , ? Pharmacy [id number] - [place], [place] - [address] [facility] [id number] ? Durable Medical Equipment Durable Medical Equipment at home: Toilet riser, Shower Chair, Single Point Cane , Roller Walker (bars around toilet; this is all DME he has at home) ? Home Health Receiving home health: In the past Agency name: [facility] Would patient use this agency again?: Yes ? Hemodialysis or Peritoneal Dialysis Undergoing hemodialysis or peritoneal dialysis: Yes Hemodialysis or Peritoneal Dialysis: Hemodialysis ? Tube/Enteral Feeds Receive tube/enteral feeds: No ? Infusion Receive infusions: No ? Private Duty Private duty help used: No ? Home and Community Based Services Home and community based services: No ? Regan Escobar: No ? Hospice Hospice: No ? Outpatient Therapy PT: No OT: No FLOATMAN: No ? [facility] SN[facility]: Yes When did patient receive care?: current Name of Facility: [facility] Would patient return for future services?: Yes NH: No ? Inpatient Rehab IPR: In the past Name of Facility: [facility] Would patient return for future services?: Yes ? [facility] LTACH: No ? Acute Hospital Stay Acute Hospital Stay: Yes Was patient's stay within the last 30 days?: No Arleen Araiza, [facility] *[id number] * Patient Education - Kylee Brock - 09/06/2017 11:27 AM CDT Medication Education Liz Hendricks accepted counseling and was engaged. he needs reinforcement. The following medications were discussed: Amlodipine Aspirin Lipitor Lexapro Zortress Prograf Plan of care Fall bundle Bronchoscopy Procedure Oxygen therapy Hygiene Depression and support resources Where indicated, the patient was provided with additional medication and/or disease-state information. All patient questions were answered and patient acknowledged understanding of the medications, side effects and other pertinent medication information. Follow up should occur daily. Continue to address: indications such as medication changes and updates to plan of care. Kylee Brock * Care Plan - Lester Agarwal RN - 09/06/2017 10:44 AM CDT Problem: Infection, Risk of Goal: Absence of infection Outcome: Goal Ongoing Pt is negative for TB. Standard precautions Problem: Discharge Planning Goal: Participation in plan of care Outcome: Goal Ongoing Pt is actively involved in plan of care Goal: Prepared for discharge Outcome: Goal Ongoing Pt to D/C once medically stable Problem: Falls, High Risk of Goal: Absence of falls-Adult Patient Outcome: Goal Ongoing Fall bundle in place Problem: Respiratory Impairment (Non-Ventilated Patient) Goal: Effective gas exchange Outcome: Goal Ongoing Pt sats above 92% on 4L NC Problem: Infection, Risk of, Central Venous Catheter-Associated Bloodstream Infection Goal: Absence of CVC Associated Bloodstream infection Outcome: Goal Ongoing CHG to be completed this shift * Patient Education - Boy Batista RN - 09/06/2017 12:05 AM CDT Medication Education Liz Hendricks accepted counseling and was receptive. he needs reinforcement. The following medications were discussed: Cardura Zortress Prograf Protonix Zosyn Renvela Vancomycin Heparin Where indicated, the patient was provided with additional medication and/or disease-state information. All patient questions were answered and patient acknowledged understanding of the medications, side effects and other pertinent medication information. Follow up should occur daily. Continue to address: indications Boy Batista RN * Care Plan - Kaylynn Ortiz RN - 09/05/2017 5:00 PM CDT Problem: Discharge Planning Goal: Participation in plan of care Outcome: Goal Ongoing Patient will discharge when medically stable. Problem: Falls, High Risk of Goal: Absence of falls-Adult Patient Outcome: Goal Ongoing High fall risk bundle in place. Problem: Nutrition Deficit Goal: Adequate nutritional intake Outcome: Goal Ongoing Patients family brings in food for him and also orders from the cafeteria. * Patient Education - Kaylynn Ortiz RN - 09/05/2017 4:56 PM CDT Medication Education Liz Hendricks accepted counseling and was interactive. he verbalized understanding. The following medications were discussed: norvasc Aspirin lipitor lexapro zortress Heparin Oxybutynin zosyn Bronchoscopy Where indicated, the patient was provided with additional medication and/or disease-state information. All patient questions were answered and patient acknowledged understanding of the medications, side effects and other pertinent medication information. Follow up should occur as needed. Continue to address: indications Kaylynn Ortiz RN * Patient Education - Boy Batista RN - 09/05/2017 1:52 AM CDT Medication Education Liz Hendricks accepted counseling and was receptive. he verbalized understanding. The following medications were discussed: Cardura Zortress Heparin Ditropan Zosyn Heparin gtt HFRB Where indicated, the patient was provided with additional medication and/or disease-state information. All patient questions were answered and patient acknowledged understanding of the medications, side effects and other pertinent medication information. Follow up should occur daily. Continue to address: indications Boy Batista RN * Procedures (Immed Post or Bedside) - Guille Chatterjee MD - 09/04/2017 4:55 PM CDT Immediate Post Procedure Note Date: 09/04/2017 Attending Physician: Enoch Duval Performing Provider: Guille Chatterjee MD Consent: Consent obtained from patient. Time out performed: Consent obtained, correct patient verified, correct procedure verified, correct site verified, patient marked as necessary. Pre/Post Procedure Diagnosis: Lung Cancer Indications: Need for intravenous access Anesthesia: Conscious Sedation Procedure(s): Tunneled non-cuffed right IJ central venous catheter placement Findings: please see dictated PACS report Estimated Blood Loss: Minimal Specimen(s) Removed/Disposition: None Complications: None Patient Tolerated Procedure: Well Post-Procedure Condition: unchanged Guille Chatterjee MD Pager [phone] * Patient Education - Kaylynn Ortiz RN - 09/04/2017 1:10 PM CDT Medication Education Liz Hendricks accepted counseling and was interactive. he verbalized understanding. The following medications were discussed: norvasc Aspirin zortress sevelamer Prograf Zosyn Patient educated on possible central line placement due to poor access and limit on where lines can be placed. Patient has had a PICC line previously. Patient has concerned about oxybutynin scheduling. He and at the bedside to express their concerns to his med team. Where indicated, the patient was provided with additional medication and/or disease-state information. All patient questions were answered and patient acknowledged understanding of the medications, side effects and other pertinent medication information. Follow up should occur as needed. Continue to address: certain medications Kaylynn Ortiz RN * Response Teams - Philly Cates RN - 09/04/2017 8:18 AM CDT RR followup at 0820-Pt currently on 4L NC, sats 91%. Pt to go to CT chest soon. Discussed pt with primary RN, no further concerns for [employer] at this time. * Response Teams - Leena Monet RN - 09/04/2017 6:17 AM CDT Rapid Response Team Progress Note Date: 09/04/2017 Time: 6:17 AM Patient: Liz Hendricks Attending: Ari Wilson MD Service: Med [id number] Admission Date: 08/31/2017 LOS: 4 days A Code/Rapid Response Timeline Event Report has been created for this patient on 09/04/17 at 0523. [employer] called for increased oxygen demand, patient was on 2.5L NC and now up to 10L high flow NC. Labs, chest xray, ECG, ABG ordered and completed. VSS. Patient awake, alert, comfortable, no complaints. Dr. Pennington at bedside, wants to keep patient on floor and have [employer] follow up Per protocol. If patient increases oxygen demand, please call [employer]. Leena Monet RN * Patient Education - Erasto Chan RN - 09/03/2017 12:55 AM CDT Medication Education Liz Hendricks accepted counseling and was engaged. he verbalized understanding. The following medications were discussed: Prograf Zortress Heparin Where indicated, the patient was provided with additional medication and/or disease-state information, including O2 requirements, TB rule out. All patient questions were answered and patient acknowledged understanding of the medications, side effects and other pertinent medication information. Follow up should occur as needed. Continue to address: indications Erasto Chan RN * Care Plan - Erasto Chan RN - 09/03/2017 12:55 AM CDT Problem: Infection, Risk of Goal: Absence of infection Outcome: Goal Ongoing Airborne precautions, pt educated with family. Problem: Discharge Planning Goal: Knowledge regarding plan of care Outcome: Goal Ongoing Discussed plan of care with patient, he verbalized understanding. Problem: Falls, High Risk of Goal: Absence of falls-Adult Patient Outcome: Goal Ongoing High fall risk bundle in place. Problem: Respiratory Impairment (Non-Ventilated Patient) Goal: Effective gas exchange Outcome: Goal Ongoing Patient required 1.5 L NC to maintain above 92% while awake but increased demands with CPAP during sleep. * Patient Education - Delmy Sierra RN - 09/02/2017 2:37 PM CDT Medication Education Liz Hendricks accepted counseling and was receptive. he verbalized understanding. The following medications were discussed: Heparin Where indicated, the patient was provided with additional medication and/or disease-state information. All patient questions were answered and patient acknowledged understanding of the medications, side effects and other pertinent medication information. Follow up should occur daily. Continue to address: indications Delmy Sierra RN * Care Plan - Delmy Sierra RN - 09/02/2017 11:15 AM CDT Problem: Infection, Risk of Goal: Absence of infection Outcome: Goal Ongoing Airborne isolation, pt educated Problem: Discharge Planning Goal: Participation in plan of care Outcome: Goal Ongoing RN and patient discussed plan of care, patient verbalized understanding. * Advanced Care Planning/Resuscitation Status - Herve Chan MD - 12/2017 7:18 AM CDT Advance Care Planning/Resuscitation Status Conversation Individuals present for advance care planning conversation: resident/fellow physician and patient Pertinent details of conversation (including direct quotes from patient or surrogate): He does not wish to be resuscitated in the event of cardiac arrest, but would want full intervention including ICU/intubation/pressors/etc up until the point of actual cardiac arrest. Outcome of conversation: DNAR - Full Intervention Documents completed as a result of this conversation: None Other documents present, which outline patient/surrogate wishes: None * Patient Education - Erasto Chan RN - 09/02/2017 3:15 AM CDT Medication Education Liz Hendricks accepted counseling and was receptive. he verbalized understanding. The following medications were discussed: Zortress Cardura Heparin Ditropan Protonix Prograf Flomax Where indicated, the patient was provided with additional medication and/or disease-state information, such as fall risk bundle, airborne precautions, TB rule out, oxygen requirements. All patient questions were answered and patient acknowledged understanding of the medications, side effects and other pertinent medication information. Follow up should occur daily. Continue to address: indications Erasto Chan RN * Care Plan - Erasto Chan RN - 09/02/2017 3:11 AM CDT Problem: Infection, Risk of Goal: Knowledge of Infection Control Procedures Outcome: Goal Ongoing Patient and understanding of airborne precautions Problem: Discharge Planning Goal: Participation in plan of care Outcome: Goal Ongoing Patient actively participating in plan of car.e Goal: Knowledge regarding plan of care Outcome: Goal Ongoing Discussed plan with patient and , they verbalized understanding. Problem: Falls, High Risk of Goal: Absence of falls-Adult Patient Outcome: Goal Ongoing High fall risk bundle in place. Problem: Respiratory Impairment (Non-Ventilated Patient) Goal: Effective gas exchange Outcome: Goal Ongoing Patient requiring 3.5 L NC to maintain above 92%. Wearing CPAP during sleep. * Patient Education - Vika Becerra RN - 09/01/2017 5:23 PM CDT Patient Education Liz Hendricks accepted counseling and was receptive. he verbalized understanding. The following medications & topics were discussed: Zortress Cardura Heparin Ditropan Protonix Prograf Flomax fall risk bundle airborne precautions TB rule out Dialysis Sputum sample collection Where indicated, the patient was provided with additional medication and/or disease-state information. All patient questions were answered and patient acknowledged understanding of the medications, side effects and other pertinent medication information. Follow up should occur daily. Continue to address: indications Vika Becerra RN * Care Plan - Vika Becerra RN - 09/01/2017 5:22 PM CDT Problem: Infection, Risk of Goal: Knowledge of Infection Control Procedures Outcome: Goal Ongoing Discussed airborne precautions with patient. Problem: Discharge Planning Goal: Participation in plan of care Outcome: Goal Ongoing Patient actively involved in plan of care. Goal: Knowledge regarding plan of care Outcome: Goal Ongoing Plan of care was discussed with patient and he verbalized understanding. Problem: Falls, High Risk of Goal: Absence of falls-Adult Patient Outcome: Goal Ongoing High fall risk bundle in place. Patient up with one assist and a walker throughout the shift. Problem: Respiratory Impairment (Non-Ventilated Patient) Goal: Effective gas exchange Outcome: Goal Ongoing Patient spO2 above 92% on 2-3.5 L nasal cannula. Will continue to attempt to wean, patient currently on RT protocol, encouraged to cough, deep breath & use IS frequently. * Patient Education - Erasto Chan RN - 09/01/2017 1:10 AM CDT Medication Education Liz Hendricks accepted counseling and was receptive. he verbalized understanding. The following medications were discussed: Zortress Cardura Heparin Ditropan Protonix Prograf Flomax Where indicated, the patient was provided with additional medication and/or disease-state information, such as fall risk bundle, airborne precautions, TB rule out. All patient questions were answered and patient acknowledged understanding of the medications, side effects and other pertinent medication information. Follow up should occur daily. Continue to address: indications Erasto Chan RN * Care Plan - Erasto Chan RN - 09/01/2017 1:03 AM CDT Problem: Infection, Risk of Goal: Knowledge of Infection Control Procedures Outcome: Goal Ongoing Discussed airborne precautions with patient. Problem: Discharge Planning Goal: Participation in plan of care Outcome: Goal Ongoing Patient actively involved in plan of care. Goal: Knowledge regarding plan of care Outcome: Goal Ongoing Plan of care was discussed with patient and he verbalized understanding. Problem: Falls, High Risk of Goal: Absence of falls-Adult Patient Outcome: Goal Ongoing High fall risk bundle in place. Problem: Respiratory Impairment (Non-Ventilated Patient) Goal: Effective gas exchange Outcome: Goal Ongoing Patient spO2 above 92% on 2 L nasal cannula. Wearing CPAP at night. 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 As such case was discussed with ID here and they rec for pt to be transported here and placed into isolation. 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 Need to obtain 3 sputums for AFB stain and CX per usual when he gets here and place ID consult. Keep him in neg pressure isolation. Patient location at time of transfer request:[facility] Time/Date of Request:08/31; 0930h Bed Type:isolation neg pressure ETA:unk *please note: all information in this note is for care coordination purposes only. I have not seen nor examined the patient and all above information is obtained from second hand reports (ie verbal reports from physician or nurse requsting/facillitating admission, chart review, etc). As such all information contained in this note should be independently verified to the extent possible by the admitting physician. Please contact me with any questions. Russel Yeager MD [phone] in this encounter Plan of Treatment Name Priority Associated Diagnoses Date/Time CULTURE-TB (AFB) Routine 08/31/2017 6:01 PM CDT CULTURE-TB (AFB) Routine 09/02/2017 7:20 AM CDT CULTURE-TB (AFB) Routine 09/03/2017 3:30 AM CDT CULTURE-TB (AFB) Routine 09/06/2017 2:30 PM CDT CULTURE-FUNGAL,OTHER Routine 09/06/2017 2:30 PM CDT Name Priority Associated Diagnoses Order Schedule ECG 12-LEAD Routine ONE TIME for 1 Occurrences starting 08/31/2017 until 08/31/2017 as of this encounter Procedures Procedure Name Priority Date/Time Associated Diagnosis [...] when ready to be scheduled 09/05/17 () BRONCHOSCOPY WITH LAVAGE 09/06/2017 Mycobacterial infection 2:15 [...] THERAPY TEAM STAT 09/04/2017 5:03 AM CDT in this encounter Results * HEMODIALYSIS INPATIENT (09/14/2017 8:42 AM) Narrative Sarahi Yañez, KIERSTEN 09/14/2017 11:36 AM 07 - Initiated HD treatment in [facility] 1.Ordered is a 4 hour treatment with a [...] - 2 Liters.Patient tolerated well. * HEMODIALYSIS DATE (09/14/2017 8:42 AM) Sarahi Kay, KIERSTEN 09/14/2017 11:36 AM 07 - Initiated HD treatment in [facility] 1.Ordered is a 4 hour treatment with a [...] MMOL/L Specimen Performing Laboratory Blood MAIN LAB [address] [place] [id number] * EVEROLIMUS BLOOD (09/14/2017 5:51 AM) Component Value Ref Range Everolimus 3.6 3 - 10 ng/mL Comment: Target concentrations vary by type of transplant, patient response, concomitant immunosuppression and post-transplant time interval.Test was performed on whole blood using [employer] QMS reagent and a [employer] [place] AU analyzer. Specimen Performing Laboratory MAIN LAB [address] [place] [address] * TACROLIMUS LEVEL(FK506) (09/14/2017 5:51 AM) Component Value Ref Range Tacrolimus 2.1 2 - 15 NG/ML Comment: Target concentrations vary by type of transplant, patient response, concomitant immunosuppression and post-transplant time interval.Test was performed on whole blood using [employer] QMS reagent and a Corby [employer] AU analyzer. Specimen Performing Laboratory Blood MAIN LAB [address] [place] [address] * PROTIME INR (PT) (09/14/2017 5:49 AM) Component Value Ref Range INR 1.6 (H) 0.8 - 1.2 Specimen Performing Laboratory Blood MAIN LAB [address] [place] [address] * EVEROLIMUS BLOOD (09/13/2017 8:25 AM) Component Value Ref Range Everolimus 3.4 3 - 10 ng/mL Comment: Target concentrations vary by type of transplant, patient response, concomitant immunosuppression and post-transplant time interval.Test was performed on whole blood using Codar[employer] QMS reagent and a [employer] [place] AU analyzer. Specimen Performing Laboratory MAIN LAB [address] [place] [address] * TACROLIMUS LEVEL(FK506) (09/13/2017 8:25 AM) Component Value Ref Range Tacrolimus 1.6 (L) 2 - 15 NG/ML Comment: Target concentrations vary by type of transplant, patient response, concomitant immunosuppression and post-transplant time interval.Test was performed on whole blood using Codar[employer] QMS reagent and a Corby [employer]ian[employer] AU analyzer. Specimen Performing Laboratory Blood [facility] [address] [place] [address] * PROTIME INR (PT) (09/13/2017 4:26 AM) Component Value Ref Range INR 1.7 (H) 0.8 - 1.2 Specimen Performing Laboratory [facility] [address] [place] [address] * CHEST SINGLE VIEW (09/12/2017 12:52 PM) Specimen Performing Laboratory [facility] RAD RESULTS [...] Kim M.D. on 09/12/2017 1:33 PM. * TACROLIMUS LEVEL(FK506) (09/12/2017 12:10 PM) Component Value Ref Range Tacrolimus 1.8 (L) 2 - 15 NG/ML Comment: Target concentrations vary by type of transplant, patient response, concomitant immunosuppression and post-transplant time interval.Test was performed on whole blood using Codarica QMS reagent and a [employer] [place] AU analyzer. Specimen Performing Laboratory MAIN LAB [address] [place] [address] * EVEROLIMUS BLOOD (09/12/2017 12:10 PM) Component Value Ref Range Everolimus <2.0 (L) 3 - 10 ng/mL Comment: Target concentrations vary by type of transplant, patient response, concomitant immunosuppression and post-transplant time interval.Test was performed on whole blood using Codar[employer] QMS reagent and a Cor[employer] Rian[employer] AU analyzer. Specimen Performing Laboratory MAIN LAB [address] [place] [address] * HEMODIALYSIS INPATIENT (09/12/2017 7:56 AM) Bernadette Ortega RN 09/12/2017 12:35 PM 0645 Pt arrived in HD bay 8 via bed. Report received from KIERSTEN Encarnacion. Pt connected to high flow O2 @ 8L/min to achieve O2sat of 97. Pt connected to monitor for VS,Resp., O2sats and cardiac rhythm set to register every 30 min. Signed consent for HD TX in chart. Verified correct Pt,meds,procedure and equipment. 0655 Pre-TX VS taken. 0706 HD TX started after all machine checks completed and passed. Verified Pt's RT LA AVF is patent. # 15g fistula needles to cannulate Pt's access. Difficulty cannulating A needle, tends to suck up against vessel. A needle adjusted X's 2. Venous cannulated X's 2 as much bleeding around first venous needle occurred. Both A/V needles taped securely then connected to HD bloodlines. HD TX set per 's orders/HD protocol. BFR @ 350 due to difficulty with both needles. 0730 Dr. Alvarado notified Pt started TX. 1000 A pressure alarm and arterial needles readjusted several times to stop pressure from dropping. BFR @ 200/arterial pressure -290. Dr. Alvarado @ bedside and aware of pressure problems in Pt arterial access. 1116 HD TX completed. Blood returned through Pt's RT FA AVF and flushes easily. A/V needles removed and pressure held with gauge til hemostasis reached then taped securely . 1130 Post TX VS taken. 1140 Transportation returned Pt to [place] [address] via bed with portable O2 set @ 4L/NC. Net UF is 2.0L 1145 Report called to KIERSTEN Sheldon. * HEMODIALYSIS DATE (09/12/2017 7:56 AM) Bernadette Ortega RN 09/12/2017 12:35 PM 0645 Pt arrived in HD bay 8 via bed. Report received from KIERSTEN Encarnacion. Pt connected to high flow O2 @ 8L/min to achieve O2sat of 97. Pt connected to monitor for VS,Resp., O2sats and cardiac rhythm set to register every 30 min. Signed consent for HD TX in chart. Verified correct Pt,meds,procedure and equipment. 0655 Pre-TX VS taken. 0706 HD TX started after all machine checks completed and passed. Verified Pt's RT LA AVF is patent. # 15g fistula needles to cannulate Pt's access. Difficulty cannulating A needle, tends to suck up against vessel. A needle adjusted X's 2. Venous cannulated X's 2 as much bleeding around first venous needle occurred. Both A/V needles taped securely then connected to HD bloodlines. HD TX set per 's orders/HD protocol. BFR @ 350 due to difficulty with both needles. 0730 Dr. Alvarado notified Pt started TX. 1000 A pressure alarm and arterial needles readjusted several times to stop pressure from dropping. BFR @ 200/arterial pressure -290. Dr. Alvarado @ bedside and aware of pressure problems in Pt arterial access. 1116 HD TX completed. Blood returned through Pt's RT FA AVF and flushes easily. A/V needles removed and pressure held with gauge til hemostasis reached then taped securely . 1130 Post TX VS taken. 1140 Transportation returned Pt to [facility] 6213 via bed with portable O2 set @ 4L/NC. Net UF is 2.0L 1145 Report called to KIERSTEN Sheldon. * HEMODIALYSIS DATE (09/12/2017 7:56 AM) Bernadette Ortega RN 09/12/2017 12:35 PM 0645 Pt arrived in HD bay 8 via bed. Report received from KIERSTEN Encarnacion. Pt connected to high flow O2 @ 8L/min to achieve O2sat of 97. Pt connected to monitor for VS,Resp., O2sats and cardiac rhythm set to register every 30 min. Signed consent for HD TX in chart. Verified correct Pt,meds,procedure and equipment. 0655 Pre-TX VS taken. 0706 HD TX started after all machine checks completed and passed. Verified Pt's RT LA AVF is patent. # 15g fistula needles to cannulate Pt's access. Difficulty cannulating A needle, tends to suck up against vessel. A needle adjusted X's 2. Venous cannulated X's 2 as much bleeding around first venous needle occurred. Both A/V needles taped securely then connected to HD bloodlines. HD TX set per 's orders/HD protocol. BFR @ 350 due to difficulty with both needles. 0730 Dr. Alvarado notified Pt started TX. 1000 A pressure alarm and arterial needles readjusted several times to stop pressure from dropping. BFR @ 200/arterial pressure -290. Dr. Alvarado @ bedside and aware of pressure problems in Pt arterial access. 1116 HD TX completed. Blood returned through Pt's RT FA AVF and flushes easily. A/V needles removed and pressure held with gauge til hemostasis reached then taped securely . 1130 Post TX VS taken. 1140 Transportation returned Pt to [place] 6213 via bed with portable O2 set @ 4L/NC. Net UF is 2.0L 1145 Report called to KIERSTEN Sheldon. * CBC (09/12/2017 6:36 AM) Component Value Ref Range White Blood [...] - 11 FL Specimen Performing Laboratory Blood MAIN LAB [address] [place] [address] * BASIC METABOLIC PANEL (09/12/2017 3:55 AM) Component Value Ref Range Sodium 137 137 [...] Clinical Pharmacist for questions. Specimen Performing Laboratory MAIN LAB [address] [place] [address] * PROTIME INR (PT) (09/12/2017 3:55 AM) Component Value Ref Range INR 1.7 (H) 0.8 - 1.2 Specimen Performing Laboratory Blood MAIN LAB [address] [place] [address] * PHOSPHORUS (09/12/2017 3:55 AM) Component Value Ref Range Phosphorus 7.6 (H) 2.0 - 4.0 MG/DL Specimen Performing Laboratory Blood MAIN LAB [address] [place] [address] * EVEROLIMUS BLOOD (09/11/2017 10:00 AM) Component Value Ref Range Everolimus 3.6 3 - 10 ng/mL Comment: Target concentrations vary by type of transplant, patient response, concomitant immunosuppression and post-transplant time interval.Test was performed on whole blood using [employer] reagent and a [employer]by [employer] AU analyzer. Specimen Performing Laboratory MAIN LAB [address] [place] [address] * TACROLIMUS LEVEL(FK506) (09/11/2017 10:00 AM) Component Value Ref Range Tacrolimus 1.7 (L) 2 - 15 NG/ML Comment: Target concentrations vary by type of transplant, patient response, concomitant immunosuppression and post-transplant time interval.Test was performed on whole blood using Codar[employer] QMS reagent and a Corby Rianna AU analyzer. Specimen Performing Laboratory Blood MAIN LAB [address] [place] [address] * 25-OH VITAMIN D (D2 + D3) (09/11/2017 10:00 AM) Component Value Ref Range Vitamin D(25-OH)Total 34.0 30 - 80 NG/ML Specimen Performing Laboratory Blood MAIN LAB [address] [place] [address] * NM PET SCAN TORSO (SKULL-THIGHS) (09/11/2017 [...] Riggs D.O. on 09/11/2017 9:31 AM. * COMPREHENSIVE METABOLIC PANEL (09/11/2017 3:50 AM) Component Value Ref Range Sodium 137 137 [...] Pharmacist for questions. Specimen Performing Laboratory [facility] [address] [place] [address] * CBC (09/11/2017 3:50 AM) Component Value Ref Range White Blood Cells 4.8 4.5 - 11.0 K/UL RBC 2.73 (L) 4.4 - 5.5 M/UL Hemoglobin 7.2 (L) 13.5 - 16.5 GM/DL Hematocrit 21.3 (L) 40 - 50 % MCV 77.8 (L) 80 - 100 FL MCH 26.5 26 - 34 PG MCHC 34.0 32.0 - 36.0 G/DL RDW 19.4 (H) 11 - 15 % Platelet Count 258 150 - 400 K/UL MPV 6.2 (L) 7 - 11 FL Specimen Performing Laboratory Blood MAIN LAB [address] [place] [address] * PROTIME INR (PT) (09/11/2017 3:50 AM) Component Value Ref Range INR 1.8 (H) 0.8 - 1.2 Specimen Performing Laboratory Blood MAIN LAB [address] [place] [address] * PARATHYROID HORMONE (09/11/2017 3:50 AM) Component Value Ref Range PTH Hormone 190.3 (H) 10 - 65 PG/ML Specimen Performing Laboratory Blood MAIN LAB [address] [place] [address] * IONIZED CALCIUM (09/11/2017 3:50 AM) Component Value Ref Range Ionized Calcium 1.33 (H) 1.0 - 1.3 MMOL/L Specimen Performing Laboratory Blood MAIN LAB [address] [place] [address] * HEMODIALYSIS INPATIENT (09/10/2017 10:23 AM) Savita Polo RN 09/10/20172:16 PM 0830 Report received from primary KIERSTEN Moscoso. 0930 Pt arrived in dialysis unit per bed. Assessment completed and documented. 0954 Right AVF accessed using 15gauge dialysis needles without difficulty. Dialysis started with a planned duration of 4 hours and a UF goal of removing 2 liters. Both lines secured with paper tape and open to view. Alpha Page out to Dr Alvarado. 1354 Dialysis completed. Pt tolerated well. Blood returned, dialysis needles removed, hemostasis achieved and area covered with dry gauze and paper tape. 1415 Report called to primary KIERSTEN Moscoso. * HEMODIALYSIS DATE (09/10/2017 10:23 AM) Savita Polo RN 09/10/20172:16 PM 0830 Report received from primary KIERSTEN Moscoso. 0930 Pt arrived in dialysis unit per bed. Assessment completed and documented. 0954 Right AVF accessed using 15gauge dialysis needles without difficulty. Dialysis started with a planned duration of 4 hours and a UF goal of removing 2 liters. Both lines secured with paper tape and open to view. Alpha Page out to Dr Alvarado. 1354 Dialysis completed. Pt tolerated well. Blood returned, dialysis needles removed, hemostasis achieved and area covered with dry gauze and paper tape. 1415 Report called to primary KIERSTEN Moscoso. * COMPREHENSIVE METABOLIC PANEL (09/10/2017 4:20 AM) Component Value Ref Range Sodium 135 (L) 137 - 147 MMOL/L Potassium 3.6 3.5 - 5.1 MMOL/L Chloride 98 98 - 110 MMOL/L Glucose 86 70 - 100 MG/DL Blood Urea Nitrogen 33 (H) 7 - 25 MG/DL Creatinine 8.63 (H) 0.4 - 1.24 MG/DL Calcium 10.3 8.5 - 10.6 MG/DL Total Protein 5.6 (L) 6.0 - 8.0 G/DL Total Bilirubin 0.3 0.3 - 1.2 MG/DL Albumin 2.8 (L) 3.5 - 5.0 G/DL Alk Phosphatase 54 25 - 110 U/L AST (SGOT) 8 7 - 40 U/L CO2 25 21 - 30 MMOL/L ALT (SGPT) 5 (L) 7 - 56 U/L Anion Gap 12 3 - 12 eGFR Non 6 (L) >60 mL/min Comment: The eGFR is not validated for use in drug dosing adjustments.Continue to use estimated creatinine clearance per dosing reference text.Please contact the Clinical Pharmacist for questions. eGFR 7 (L) >60 mL/min Comment: The eGFR is not validated for use in drug dosing adjustments.Continue to use estimated creatinine clearance per dosing reference text.Please contact the Clinical Pharmacist for questions. Specimen Performing Laboratory Blood MAIN LAB [address] [place] [address] * CBC (09/10/2017 4:20 AM) Component Value Ref Range White Blood Cells 4.4 (L) 4.5 - 11.0 K/UL RBC 2.72 (L) 4.4 - 5.5 M/UL Hemoglobin 7.1 (L) 13.5 - 16.5 GM/DL Hematocrit 21.0 (L) 40 - 50 % MCV 77.0 (L) 80 - 100 FL MCH 26.2 26 - 34 PG MCHC 34.0 32.0 - 36.0 G/DL RDW 19.6 (H) 11 - 15 % Platelet Count 233 150 - 400 K/UL MPV 6.6 (L) 7 - 11 FL Specimen Performing Laboratory Blood MAIN LAB [address] [place] [address] * PROTIME INR (PT) (09/10/2017 4:20 AM) Component Value Ref Range INR 1.5 (H) 0.8 - 1.2 Specimen Performing Laboratory Blood MAIN LAB [address] [place] [address] * COMPREHENSIVE METABOLIC PANEL (09/09/2017 3:01 AM) Component Value Ref Range Sodium 135 (L) 137 - 147 MMOL/L Potassium 3.5 3.5 - 5.1 MMOL/L Chloride 98 98 - 110 MMOL/L Glucose 93 70 - 100 MG/DL Blood Urea Nitrogen 23 7 - 25 MG/DL Creatinine 6.12 (H) 0.4 - 1.24 MG/DL Calcium 10.2 8.5 - 10.6 MG/DL Total Protein 5.6 (L) 6.0 - 8.0 G/DL Total Bilirubin 0.3 0.3 - 1.2 MG/DL Albumin 2.8 (L) 3.5 - 5.0 G/DL Alk Phosphatase 55 25 - 110 U/L AST (SGOT) 7 7 - 40 U/L CO2 27 21 - 30 MMOL/L ALT (SGPT) 6 (L) 7 - 56 U/L Anion Gap 10 3 - 12 eGFR Non 9 (L) >60 mL/min Comment: The eGFR is not validated for use in drug dosing adjustments.Continue to use estimated creatinine clearance per dosing reference text.Please contact the Clinical Pharmacist for questions. eGFR 11 (L) >60 mL/min Comment: The eGFR is not validated for use in drug dosing adjustments.Continue to use estimated creatinine clearance per dosing reference text.Please contact the Clinical Pharmacist for questions. Specimen Performing Laboratory Blood MAIN [facility] [address] [place] [address] * CBC (09/09/2017 3:01 AM) Component Value Ref Range White Blood Cells 4.3 (L) 4.5 - 11.0 K/UL RBC 2.73 (L) 4.4 - 5.5 M/UL Hemoglobin 7.1 (L) 13.5 - 16.5 GM/DL Hematocrit 20.8 (L) 40 - 50 % MCV 76.4 (L) 80 - 100 FL MCH 26.1 26 - 34 PG MCHC 34.1 32.0 - 36.0 G/DL RDW 19.8 (H) 11 - 15 % Platelet Count 264 150 - 400 K/UL MPV 6.2 (L) 7 - 11 FL Specimen Performing Laboratory Blood MAIN LAB [address] [place] [address] * PROTIME INR (PT) (09/09/2017 3:01 AM) Component Value Ref Range INR 1.3 (H) 0.8 - 1.2 Specimen Performing Laboratory Blood MAIN LAB [address] [place] [address] * TRANSFUSE RBC'S NON-BLEEDING PT (09/08/2017 1:05 PM) Specimen Performing Laboratory Blood * TRANSFUSE RBC'S NON-BLEEDING PT (09/08/2017 1:05 PM) Specimen Performing Laboratory Blood * HAPTOGLOBIN (09/08/2017 8:35 AM) Component Value Ref Range Haptoglobin 358 (H) 16 - 200 MG/DL Specimen Performing Laboratory Blood MAIN LAB [address] [place] [address] * LDH-LACTATE DEHYDROGENASE (09/08/2017 3:20 AM) Component Value Ref Range Lactate Dehydrogenase 169 100 - 210 U/L Specimen Performing Laboratory MAIN LAB [address] [place] [address] * COMPREHENSIVE METABOLIC PANEL (09/08/2017 3:20 AM) Component Value Ref Range Sodium 137 137 - 147 MMOL/L Potassium 3.4 (L) 3.5 - 5.1 MMOL/L Chloride 100 98 - 110 MMOL/L Glucose 93 70 - 100 MG/DL Blood Urea Nitrogen 14 7 - 25 MG/DL Creatinine 4.31 (H) 0.4 - 1.24 MG/DL Calcium 9.9 8.5 - 10.6 MG/DL Total Protein 5.6 (L) 6.0 - 8.0 G/DL Total Bilirubin 0.3 0.3 - 1.2 MG/DL Albumin 2.7 (L) 3.5 - 5.0 G/DL Alk Phosphatase 52 25 - 110 U/L AST (SGOT) 7 7 - 40 U/L CO2 29 21 - 30 MMOL/L ALT (SGPT) 6 (L) 7 - 56 U/L Anion Gap 8 3 - 12 eGFR Non 14 (L) >60 mL/min Comment: The eGFR is not validated for use in drug dosing adjustments.Continue to use estimated creatinine clearance per dosing reference text.Please contact the Clinical Pharmacist for questions. eGFR 16 (L) >60 mL/min Comment: The eGFR is not validated for use in drug dosing adjustments.Continue to use estimated creatinine clearance per dosing reference text.Please contact the Clinical Pharmacist for questions. Specimen Performing Laboratory Blood MAIN LAB [address] [place] [address] * CBC (09/08/2017 3:20 AM) Component Value Ref Range White Blood Cells 3.3 (L) 4.5 - 11.0 K/UL RBC 2.47 (L) 4.4 - 5.5 M/UL Hemoglobin 6.4 (L) 13.5 - 16.5 GM/DL Hematocrit 18.9 (L) 40 - 50 % MCV 76.5 (L) 80 - 100 FL MCH 25.9 (L) 26 - 34 PG MCHC 33.8 32.0 - 36.0 G/DL RDW 19.6 (H) 11 - 15 % Platelet Count 249 150 - 400 K/UL MPV 6.3 (L) 7 - 11 FL Specimen Performing Laboratory Blood MAIN LAB [address] [place] [address] * PROTIME INR (PT) (09/08/2017 3:20 AM) Component Value Ref Range INR 1.2 0.8 - 1.2 Specimen Performing Laboratory Blood MAIN LAB [address] [place] [address] * HEMODIALYSIS INPATIENT (09/07/2017 3:10 PM) Ebenezer Rodriguez RN 09/07/20176:31 PM 1320 Report received from KIERSTEN Estrada. 1345 Patient arrived on bed, alert and Oriented x 4, COTTO,RA, respirations equal,symmetrical, lung sounds clear throughout. NSR on tele, pulses palpable. Vss per patient rends. Initial assessment completed and charted per doc flow sheets. 1400 Fistula cannulated without any problems with 15 gauge needles, properly secured and visible per procedure.Dialysis started per MD orders 4 hrs tx on 3 K, and [address]. [address] Alvarado at bedside; updated of patient status. Will continue monitoring. 1535 Pharmacy contacted to switch heparin to double concentration heparin per Dr. Alvarado' request. 1809 Dialysis finished, blood returned, fistula flushed, decccanulated. Pressure held until hemostasis achieved. 182 Report given to KIERSTEN Rjoas. * PTT (APTT) (09/07/2017 12:53 PM) Component Value Ref Range APTT 74.6 (H) 21.0 - 39.0 SEC Specimen Performing Laboratory Blood MAIN LAB [address] [place] [address] * CBC (09/07/2017 5:55 AM) Component Value Ref Range White Blood Cells 5.0 4.5 - 11.0 K/UL RBC 2.83 (L) 4.4 - 5.5 M/UL Hemoglobin 7.3 (L) 13.5 - 16.5 GM/DL Hematocrit 21.5 (L) 40 - 50 % MCV 76.0 (L) 80 - 100 FL MCH 25.8 (L) 26 - 34 PG MCHC 34.0 32.0 - 36.0 G/DL RDW 20.3 (H) 11 - 15 % Platelet Count 236 150 - 400 K/UL MPV 6.7 (L) 7 - 11 FL Specimen Performing Laboratory MAIN LAB [address] [place] [address] * COMPREHENSIVE METABOLIC PANEL (09/07/2017 5:55 AM) Component Value Ref Range Sodium 133 (L) 137 - 147 MMOL/L Potassium 3.8 3.5 - 5.1 MMOL/L Chloride 95 (L) 98 - 110 MMOL/L Glucose 95 70 - 100 MG/DL Blood Urea Nitrogen 25 7 - 25 MG/DL Creatinine 7.25 (H) 0.4 - 1.24 MG/DL Calcium 10.4 8.5 - 10.6 MG/DL Total Protein 6.0 6.0 - 8.0 G/DL Total Bilirubin 0.3 0.3 - 1.2 MG/DL Albumin 3.1 (L) 3.5 - 5.0 G/DL Alk Phosphatase 58 25 - 110 U/L AST (SGOT) 7 7 - 40 U/L CO2 25 21 - 30 MMOL/L ALT (SGPT) 6 (L) 7 - 56 U/L Anion Gap 13 (H) 3 - 12 eGFR Non 7 (L) >60 mL/min Comment: [...] Clinical Pharmacist for questions. Specimen Performing Laboratory MAIN LAB [address] [place] [address] * PTT (APTT) (09/07/2017 5:55 AM) Component Value Ref Range APTT 52.4 (H) 21.0 - 39.0 SEC Specimen Performing Laboratory Blood MAIN LAB [address] [place] [address] * PROTIME INR (PT) (09/07/2017 5:55 AM) Component Value Ref Range INR 1.1 0.8 - 1.2 Specimen Performing Laboratory Blood MAIN LAB [address] [place] [address] * ECG-SCAN (09/06/2017 10:55 PM) Narrative Ordered by an unspecified provider. * PTT (APTT) (09/06/2017 10:52 PM) Component Value Ref Range APTT 53.2 (H) 21.0 - 39.0 SEC Specimen Performing Laboratory Blood MAIN LAB [address] [place] [address] * PTT (APTT) (09/06/2017 4:39 PM) Component Value Ref Range APTT 27.5 21.0 - 39.0 SEC Specimen Performing Laboratory Blood MAIN LAB [address] [place] [address] * GRAM STAIN (09/06/2017 2:30 PM) Component Value Ref Range Battery Name GRAM STAIN Specimen Description BRONCHIAL ALVEOLAR LAVAGE, RLL Special Requests NONE Gram Stain FEW NEUTROPHILS FEW COLUMNAR EPITHELIAL CELLS NO ORGANISMS SEEN Report Status FINAL 09/07/2017 Specimen Performing Laboratory Bronchial Alveolar [facility] MAIN LAB Lavage,RLL [address] [place] [address] * CELL COUNT W/DIFF-FLUIDS (09/06/2017 2:30 PM) [...] Bronchial [facility] MAIN [facility] Alveolar Lavage [address] [place] [address] * RVP VIRAL PANEL PCR (09/06/2017 2:30 [...] NOT DETECTED Specimen Performing Laboratory Nasal Wash [facility] MAIN LAB [address] [place] [address] * PJP JIROVECI QUANT PCR (09/06/2017 2:30 [...] developed and its performance characteristics determined by [employer]. It has not been cleared or approved by the U.S. Food and Drug Administration.-Results should be used in conjunction with clinical findings, and should not form the sole basis for a diagnosis or treatment decision.- PCR tests are performed pursuant to a license agreement with [employer]. Testing Performed At: [facility] [place] [address] CLIA ID: [id number] Specimen Performing Laboratory Bronchial Washing RLL REFERENCE LAB * ASPERGILLUS GALACTOMANN (09/06/2017 2:30 PM) Component [...] Aspergillus Galactomannan EIA is a product of [employer] and is FDA approved for in vitro diagnostic use. Testing Performed At: [employer] [address] [place] [address] CLIA ID: [id number] Specimen Performing Laboratory Bronchial Washing RLL REFERENCE LAB * HERPES SIMPLEX PCR - NON-BLOOD (09/06/2017 2:30 PM) Component Value Ref Range Specimen, Herpes BRONCHIAL ALVEOLAR LAVAGE Herpes Simplex PCR HSV 1 and 2 NOT DETECTED [employer] HSV 1&2 Assay is a qualitative real-time PCR test for the direct detection and differentiation of HSV 1 and 2 DNA. This assay is FDA approved for testing cutaneous or mucocutaneous lesions from symptomatic patients. Performance on modifications of this test as well as other specimen types has been validated by the Department of Pathology and Laboratory Medicine at the [facility]. Specimen Performing Laboratory Bronchial Alveolar Lavage MAIN LAB [address] [place] [id number] * CMV QUANT PCR-FLUID (09/06/2017 2:30 PM) Component Value Ref Range Specimen, CMV BRONCHIAL ALVEOLAR LAVAGE CMV by PCR-fluid CMV DNA NOT DETECTED CMV Comment-Fluid This assay is an off label use of the Wiley RealTime Assay for detection of CMV in fluids and has not been approved by the US Food and Drug Administration. The performance characteristics were determined by the [facility] Laboratory.The lower limit of detection is 50IU/mL. Specimen Performing Laboratory Fluid - Bronchial [facility] MAIN LAB Alveolar Lavage [address] [place] [address] * CULTURE-RESP,LOWER W/SENSITIVITY (09/06/2017 2:30 PM) Component Value Ref Range Battery Name LOWER RESP CULTURE Specimen Description BRONCHIAL ALVEOLAR LAVAGE, RLL Special Requests NONE Direct Gram Stain FEW NEUTROPHILS FEW COLUMNAR EPITHELIAL CELLS NO ORGANISMS SEEN Culture Light growth NO SIGNIFICANT TIAN Report Status FINAL 09/08/2017 Specimen Performing Laboratory Bronchial Alveolar [facility] MAIN LAB Lavage,RLL [address] [place] [address] * NON-OUTSOLE SCHEDULER CYTOLOGY (BODY FLUIDS/TISSUE) (09/06/2017 10:40 AM) Component Value Ref Range Cytology [facility] [email or web address] Department of Pathology and Laboratory Medicine [address] [place] [address] Surgical Pathology Office:[phone]:[phone] CYTOLOGY REPORT NAME: LIZ HENDRICKS CYTOLOGY #: [id number] MR #: [id number] ALT ID #: BILLING #: [id number] LOCATION: DATE OF PROCEDURE: 09/06/2017 AGE:76 SEX: M DATE RECEIVED: 09/07/2017 : 1940TIME RECEIVED:10:40 PHYSICIAN:ANANTH CALVIN MD DATE OF REPORT: 09/11/2017 [facility] MD DATE OF PRINTIN09/11/2017 Material Received: [...] Please also see concurrent surgical pathology report ([id number]). See comment. 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 Pursuant to the [employer] Program at the [facility] Pathology Department, selected slides from this [...] Herbert Rincon MD, PhDFellow Specimen Performing Laboratory LAB RESULTS * EVEROLIMUS BLOOD (09/06/2017 8:28 AM) Component Value Ref Range Everolimus 4.0 3 - 10 ng/mL Comment: Target concentrations vary by type of transplant, patient response, concomitant immunosuppression and post-transplant time interval.Test was performed on whole blood using [employer] QMS reagent and a Corby [place] AU analyzer. Specimen Performing Laboratory MAIN LAB [address] [place] [address] * TACROLIMUS LEVEL(FK506) (09/06/2017 8:28 AM) Component Value Ref Range Tacrolimus 2.9 2 - 15 NG/ML Comment: Target concentrations vary by type of transplant, patient response, concomitant immunosuppression and post-transplant time interval.Test was performed on whole blood using [employer] QMS reagent and a Corby [place] AU analyzer. Specimen Performing Laboratory Blood [facility] LAB [address] [place] [address] * SURGICAL PATHOLOGY (09/06/2017 7:29 AM) Component Value Ref Range PATHOLOGY REPORT [facility] [email or web address] Department of Pathology and Laboratory Medicine [address] [place] [address] Surgical Pathology Office:[phone]:[phone] SURGICAL PATHOLOGY REPORT NAME: LIZ HENDRICKS SURG PATH #: [id number] MR #: [id number] SPECIMEN CLASS: SR BILLING #: [id number] ALT ID #:LOCATION: [id number] DATE OF PROCEDURE: [...] this report. +++ +++ Ej Delgado M.D. [facility]/09/07/2017 ################################################## ###################### Material Received: A: right lower [...] and entirely submitted in cassette A1. (tn) 09/07/2017 Specimen Performing Laboratory [facility] LAB RESULTS * CBC (09/06/2017 6:05 AM) Component Value Ref Range White Blood Cells 5.9 4.5 - 11.0 K/UL RBC 2.93 (L) 4.4 - 5.5 M/UL Hemoglobin 7.4 (L) 13.5 - 16.5 GM/DL Hematocrit 22.3 (L) 40 - 50 % MCV 76.2 (L) 80 - 100 FL MCH 25.1 (L) 26 - 34 PG MCHC 32.9 32.0 - 36.0 G/DL RDW 20.3 (H) 11 - 15 % Platelet Count 242 150 - 400 K/UL MPV 6.9 (L) 7 - 11 FL Specimen Performing Laboratory MAIN LAB [address] [place] [address] * BASIC METABOLIC PANEL (09/06/2017 6:05 AM) Component Value Ref Range Sodium 135 (L) 137 - 147 MMOL/L Potassium 3.7 3.5 - 5.1 MMOL/L Chloride 98 98 - 110 MMOL/L CO2 30 21 - 30 MMOL/L Anion Gap 7 3 - 12 Glucose 109 (H) 70 - 100 MG/DL Blood Urea Nitrogen 17 7 - 25 MG/DL Creatinine 5.13 (H) 0.4 - 1.24 MG/DL Calcium 10.2 8.5 - 10.6 MG/DL eGFR Non 11 (L) >60 mL/min Comment: The eGFR is not validated for use in drug dosing adjustments.Continue to use estimated creatinine clearance per dosing reference text.Please contact the Clinical Pharmacist for questions. eGFR 13 (L) >60 mL/min Comment: The eGFR is not validated for use in drug dosing adjustments.Continue to use estimated creatinine clearance per dosing reference text.Please contact the Clinical Pharmacist for questions. Specimen Performing Laboratory MAIN LAB [address] [place] [address] * PROTIME INR (PT) (09/06/2017 6:05 AM) Component Value Ref Range INR 1.1 0.8 - 1.2 Specimen Performing Laboratory Blood MAIN LAB [address] [place] [address] * PTT (APTT) (09/05/2017 3:49 PM) Component Value Ref Range APTT 69.5 (H) 21.0 - 39.0 SEC Specimen Performing Laboratory MAIN LAB [address] [place] [address] * VANCOMYCIN RANDOM (09/05/2017 3:49 PM) Component Value Ref Range Vancomycin Random 11.6 MCG/ML Specimen Performing Laboratory Blood MAIN LAB [address] [place] [address] * TYPE & CROSSMATCH (09/05/2017 3:49 PM) Component Value Ref Range Units Ordered 1 Crossmatch Expires 09/08/2017 Record Check FOUND ABO/RH(D) O NEG Antibody Screen NEG Electronic Crossmatch YES Unit Number [id number] Blood Component Type RBC,CPDA,LEUKO REDUCED Unit Division 0 Status OF Unit TRANSFUSED Transfusion Status OK TO TRANSFUSE Crossmatch Result COMPATIBLE,ELECTRONIC Specimen Performing Laboratory Blood MAIN LAB [address] [place], [place] [id number] * PROTIME INR (PT) (09/05/2017 3:49 PM) Component Value Ref Range INR 1.2 0.8 - 1.2 Specimen Performing Laboratory Blood MAIN LAB [address] [place] [address] * CBC AND DIFF (09/05/2017 3:49 PM) Component Value Ref Range White Blood Cells [...] - 0.20 K/UL Specimen Performing Laboratory Blood [facility] MAIN LAB [address] [place] [address] * US DOPPLER VENOUS W EXTRM BILAT [...] Masterson M.D. on 09/05/2017 2:05 PM. * HEMODIALYSIS INPATIENT (09/05/2017 12:41 PM) Sarahi Kay RN 09/05/2017 12:45 PM 08 - HD treatment completed in [place] [address].Net UF 2 Liters.PTT drawn and adjusted per protocol and KIERSTEN Mosqueda on unit 62 confirmed bolus and dosage change amounts.Hemostasis achieved within 10 minutes and patient traveling to [facility] before returned to room.Report to Jaylin before tx over. * HEMODIALYSIS DATE (09/05/2017 12:41 PM) Sarahi Kay RN 09/05/2017 12:45 PM 08 - HD treatment completed in [place] [address].Net UF 2 Liters.PTT drawn and adjusted per protocol and KIERSTEN Mosqueda on unit 62 confirmed bolus and dosage change amounts.Hemostasis achieved within 10 minutes and patient traveling to [facility] before returned to room.Report to Jaylin before tx over. * PTT (APTT) (09/05/2017 9:15 AM) Component Value Ref Range APTT 62.4 (H) 21.0 - 39.0 SEC Specimen Performing Laboratory MAIN LAB [address] [place] [address] * PROTIME INR (PT) (09/05/2017 3:00 AM) Component Value Ref Range INR 1.2 0.8 - 1.2 Specimen Performing Laboratory MAIN LAB [address] [place] [address] * CBC AND DIFF (09/05/2017 3:00 AM) Component Value Ref Range White Blood Cells 7.2 4.5 - 11.0 K/UL RBC 3.06 (L) 4.4 - 5.5 M/UL Hemoglobin 7.9 (L) 13.5 - 16.5 GM/DL Hematocrit 23.3 (L) 40 - 50 % MCV 76.3 (L) 80 - 100 FL MCH 25.7 (L) 26 - 34 PG MCHC 33.7 32.0 - 36.0 G/DL RDW 20.5 (H) 11 - 15 % Platelet Count 232 150 - 400 K/UL MPV 6.1 (L) 7 - 11 FL Neutrophils 89 (H) 41 - 77 % Lymphocytes 7 (L) 24 - 44 % Monocytes 3 (L) 4 - 12 % Eosinophils 1 0 - 5 % Basophils 0 0 - 2 % Absolute Neutrophil Count 6.40 1.8 - 7.0 K/UL Absolute Lymph Count 0.50 (L) 1.0 - 4.8 K/UL Absolute Monocyte Count 0.20 0 - 0.80 K/UL Absolute Eosinophil Count 0.10 0 - 0.45 K/UL Absolute Basophil Count 0.00 0 - 0.20 K/UL Specimen Performing Laboratory MAIN LAB [address] [place] [address] * COMPREHENSIVE METABOLIC PANEL (09/05/2017 3:00 AM) Component Value Ref Range Sodium 131 (L) 137 - 147 MMOL/L Potassium 4.2 3.5 - 5.1 MMOL/L Chloride 94 (L) 98 - 110 MMOL/L Glucose 117 (H) 70 - 100 MG/DL Blood Urea Nitrogen 27 (H) 7 - 25 MG/DL Creatinine 7.05 (H) 0.4 - 1.24 MG/DL Calcium 10.6 8.5 - 10.6 MG/DL Total Protein 6.1 6.0 - 8.0 G/DL Total Bilirubin 0.5 0.3 - 1.2 MG/DL Albumin 3.0 (L) 3.5 - 5.0 G/DL Alk Phosphatase 56 25 - 110 U/L AST (SGOT) 8 7 - 40 U/L CO2 29 21 - 30 MMOL/L ALT (SGPT) 6 (L) 7 - 56 U/L Anion Gap 8 3 - 12 eGFR Non 8 (L) >60 mL/min Comment: The eGFR is [...] Clinical Pharmacist for questions. Specimen Performing Laboratory MAIN LAB [address] [place] [address] * PTT (APTT) (09/05/2017 3:00 AM) Component Value Ref Range APTT 79.9 (H) 21.0 - 39.0 SEC Specimen Performing Laboratory Blood MAIN LAB [address] [place] [address] * PTT (APTT) (09/04/2017 8:30 PM) Component Value Ref Range APTT 28.6 21.0 - 39.0 SEC Specimen Performing Laboratory Blood MAIN LAB [address] [place] [address] * CTA CHEST WO/W CONTRAST+POST IMPRESSION (09/04/2017 [...] venous catheter as described above. I, Enoch Duval M.D, the attending radiologist, was present for [...] expressed in this report Finalized by ENOCH DUVAL on 09/05/2017 11:20 AM. Dictated by Guille [...] vein CONTRAST: None COMPLICATIONS: None CATHETER: 5 Somali double lumen Bard POWER PICC TECHNIQUE:Informed, written [...] needle into the vein and a 5.5 Somali peel-away sheath was advanced centrally over wire. [...] to length. The introducer of the 5.5 Somali sheath was removed and the tunneled non-cuffed [...] vein CONTRAST: None COMPLICATIONS: None CATHETER: 5 Somali double lumen Bard POWER PICC TECHNIQUE: Informed, [...] needle into the vein and a 5.5 Somali peel-away sheath was advanced centrally over wire. [...] to length. The introducer of the 5.5 Somali sheath was removed and the tunneled non-cuffed [...] tunneled central venous catheter as described above. IEnoch M.D, the attending radiologist, was present for [...] expressed in this report Finalized by ENOCH DUVAL on 09/05/2017 11:20 AM. Dictated by Guille Chatterjee M.D. on 09/04/2017 4:55 PM. 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 Rapid progression of alveolar opacities in the lower lobes raises the question of superimposed pneumonia. Approved by Jan Kim M.D. on 09/04/2017 9:12 AM By my electronic signature, I attest that I have personally reviewed the images for this examination and formulated the interpretations and opinions expressed in this report Finalized by Sheldon Mathias M.D. on 09/04/2017 10:45 AM. Dictated by Jan Kim M.D. on 09/04/2017 8:34 AM. Narrative CHEST SINGLE VIEW History: Fever, hypoxia. Comparison: Chest radiograph August 31, 2017, CT chest September 02, 2017 Findings: Heart size and pulmonary vasculature are within normal limits. Persistent areas of dense alveolar consolidation in the right upper lobe with progression of consolidation in the lower lobes. Small right pleural effusion. No pneumothorax. Procedure Note Interface, Radiant Results - 09/04/2017 10:48 AM CDT CHEST SINGLE VIEW History: Fever, hypoxia. Comparison: Chest radiograph August 31, 2017, CT chest September 02, 2017 Findings: Heart size and pulmonary vasculature are within normal limits. Persistent areas of dense alveolar consolidation in the right upper lobe with progression of consolidation in the lower lobes. Small right pleural effusion. No pneumothorax. 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 Rapid progression of alveolar opacities in the lower lobes raises the question of superimposed pneumonia. Approved by Jan Kim M.D. on 09/04/2017 9:12 AM By my electronic signature, I attest that I have personally reviewed the images for this examination and formulated the interpretations and opinions expressed in this report Finalized by Sheldon Mathias M.D. on 09/04/2017 10:45 AM. Dictated by Jan Kim M.D. on 09/04/2017 8:34 AM. * CULTURE-BLOOD W/SENSITIVITY (09/04/2017 5:39 AM) Component Value Ref Range Battery Name BLOOD CULTURE Specimen Description BLOOD LEFT HAND Special Requests NONE Culture NO GROWTH 5 DAYS Report Status FINAL 09/10/2017 Specimen Performing Laboratory Blood MAIN LAB [address] [place] [address] * D-DIMER (09/04/2017 5:35 AM) Component Value [...] 10 ng/mL Specimen Performing Laboratory MAIN LAB [address] [place] [address] * POC GLUCOSE (09/04/2017 5:35 AM) Component Value Ref Range Glucose, POC 109 (H) 70 - 100 MG/DL Specimen Performing Laboratory MAIN LAB [address] [place] [address] * PHOSPHORUS (09/04/2017 5:35 AM) Component Value Ref Range Phosphorus 3.5 2.0 - 4.0 MG/DL Specimen Performing Laboratory Blood MAIN LAB [address] [place], [place] [id number] * MAGNESIUM (09/04/2017 5:35 AM) Component Value Ref Range Magnesium 1.9 1.6 - 2.6 mg/dL Specimen Performing Laboratory Blood MAIN LAB [address] [place], [place] [id number] * LACTIC ACID (BG - RAPID LACTATE) (09/04/2017 5:35 AM) Component Value Ref Range Lactic Acid,BG 1.2 0.5 - 2.0 MMOL/L Specimen Performing Laboratory Blood [facility] LAB [address] [place] [address] * TROPONIN-I (09/04/2017 5:35 AM) Component Value Ref Range Troponin-I 0.01 0.0 - 0.05 NG/ML Specimen Performing Laboratory Blood MAIN LAB [address] [place] [address] * COMPREHENSIVE METABOLIC PANEL (09/04/2017 5:35 AM) Component Value Ref Range Sodium 141 137 - 147 MMOL/L Potassium 4.6 3.5 - 5.1 MMOL/L Chloride 103 98 - 110 MMOL/L Glucose 107 (H) 70 - 100 MG/DL Blood Urea Nitrogen 16 7 - 25 MG/DL Creatinine 5.05 (H) 0.4 - 1.24 MG/DL Calcium 11.1 (H) 8.5 - 10.6 MG/DL Total Protein 6.7 6.0 - 8.0 G/DL Total Bilirubin 0.4 0.3 - 1.2 MG/DL Albumin 3.6 3.5 - 5.0 G/DL Alk Phosphatase 60 25 - 110 U/L AST (SGOT) 11 7 - 40 U/L CO2 28 21 - 30 MMOL/L ALT (SGPT) 6 (L) 7 - 56 U/L Anion Gap 10 3 - 12 eGFR Non 11 (L) >60 mL/min Comment: The eGFR is not validated for use in drug dosing adjustments.Continue to use estimated creatinine clearance per dosing reference text.Please contact the Clinical Pharmacist for questions. eGFR 14 (L) >60 mL/min Comment: The eGFR is not validated for use in drug dosing adjustments.Continue to use estimated creatinine clearance per dosing reference text.Please contact the Clinical Pharmacist for questions. Specimen Performing Laboratory Blood MAIN LAB [address] [place] [address] * PTT (APTT) (09/04/2017 5:35 AM) Component Value Ref Range APTT 28.1 21.0 - 39.0 SEC Specimen Performing Laboratory Blood MAIN LAB [address] [place] [address] * PROTIME INR (PT) (09/04/2017 5:35 AM) Component Value Ref Range INR 1.1 0.8 - 1.2 Specimen Performing Laboratory Blood MAIN LAB [address] [place] [address] * CBC (09/04/2017 5:35 AM) Component Value Ref Range White Blood Cells 7.3 4.5 - 11.0 K/UL RBC 3.57 (L) 4.4 - 5.5 M/UL Hemoglobin 9.2 (L) 13.5 - 16.5 GM/DL Hematocrit 27.3 (L) 40 - 50 % MCV 76.6 (L) 80 - 100 FL MCH 25.7 (L) 26 - 34 PG MCHC 33.5 32.0 - 36.0 G/DL RDW 20.8 (H) 11 - 15 % Platelet Count 245 150 - 400 K/UL MPV 6.3 (L) 7 - 11 FL Specimen Performing Laboratory Blood [facility] LAB [address] [place] [address] * POC IONIZED CALCIUM (09/04/2017 5:30 AM) Component Value Ref Range Ionized Calcium-POC 1.35 (H) 1.0 - 1.3 MMOL/L Specimen Performing Laboratory [facility] [address] [place] [address] * POC SODIUM (09/04/2017 5:30 AM) Component Value Ref Range Sodium-POC 137 137 - 147 MMOL/L Specimen Performing Laboratory [facility] [address] [place] [address] * POC POTASSIUM (09/04/2017 5:30 AM) Component Value Ref Range Potassium-POC 4.3 3.5 - 5.1 MMOL/L Specimen Performing Laboratory [facility] [address] [place] [address] * POC HEMATOCRIT (09/04/2017 5:30 AM) Component Value Ref Range Hemoglobin POC 12.6 (L) 13.5 - 16.5 GM/DL Hematocrit POC 37.0 (L) 40 - 50 % Specimen Performing Laboratory [facility] [address] [place] [address] * POC BLOOD GAS ARTERIAL (09/04/2017 5:30 AM) Component Value Ref Range PH-ART-POC 7.51 (H) 7.35 - 7.45 [id number] 38 35 - 45 MMHG PO2-ART-POC 55 (L) 80 - 100 MMHG Base Ex-ART-POC 8.0 MMOL/L O2 Sat-ART-POC 91.0 (L) 95 - 99 % Irsdpifcops-CUL-IJH 30.7 (H) 21 - 28 MMOL/L Specimen Performing Laboratory [facility] [address] [place] [address] * CULTURE-BLOOD W/SENSITIVITY (09/04/2017 5:30 AM) Component Value Ref Range Battery Name BLOOD CULTURE Specimen Description BLOOD LEFT HAND Special Requests NONE Culture NO GROWTH 5 DAYS Report Status FINAL 09/10/2017 Specimen Performing Laboratory [facility] [address] [place], [place] [address] [address] * HEMODIALYSIS INPATIENT (09/03/2017 11:52 AM) Narrative Liz Junior, KIERSTEN 09/03/20173:15 PM Report received from Primary Care RN. Pt treatment at bedside and attached to nbp, cardiac and oximetry monitoring. LAVG accessed on first attempt and without difficulty on both A and V cannulation sites. Both sites secured with paper tape and dressed with a band aid. HD ORDERS: Conventional Hemodialysis for 4.0 hours, F160 Dialyzer, 1.0L - 3.0L net UF pr Dr. Collier, 3K 2.5Ca bath per protocol, Max Blood Blow 400, Max Dialysate Flow 700. 1017 TX START. Prescribed treatment parameters achieved. Lines and access secure In view and intact. Face uncovered and in view. Dr. Collier at [facility] bedside shortly after treatment start. No new orders. 1418TX END. Net UF 1.0L. [place] pulled one at at time, hemostasis achieved in less than 10 min on each cannulation site. Dressed with band aid and reinforced with gauze and paper tape. Report given to Primary Care RN. * HEMODIALYSIS DATE (09/03/2017 11:52 AM) Narrative Liz Junior, KIERSTEN 09/03/20173:15 PM Report received from Primary Care RN. Pt treatment at bedside and attached to nbp, cardiac and oximetry monitoring. LAVG accessed on first attempt and without difficulty on both A and V cannulation sites. Both sites secured with paper tape and dressed with a band aid. HD ORDERS: Conventional Hemodialysis for 4.0 hours, F160 Dialyzer, 1.0L - 3.0L net UF pr Dr. Collier, 3K 2.5Ca bath per protocol, Max Blood Blow 400, Max Dialysate Flow 700. 1017 TX START. Prescribed treatment parameters achieved. Lines and access secure In view and intact. Face uncovered and in view. Dr. Collier at [facility] bedside shortly after treatment start. No new orders. [id number] END. Net UF 1.0L. [place] pulled one at at time, hemostasis achieved in less than 10 min on each cannulation site. Dressed with band aid and reinforced with gauze and paper tape. Report given to Primary Care RN. * TACROLIMUS LEVEL(FK506) (09/03/2017 9:45 AM) Component Value Ref Range Tacrolimus 3.4 2 - 15 NG/ML Comment: Target concentrations vary by type of transplant, patient response, concomitant immunosuppression and post-transplant time interval.Test was performed on whole blood using [employer] QMS reagent and a Corby Rianna AU analyzer. Specimen Performing Laboratory [facility] [address] [place] [address] * EVEROLIMUS BLOOD (09/03/2017 9:45 AM) Component Value Ref Range Everolimus 5.9 3 - 10 ng/mL Comment: Target concentrations vary by type of transplant, patient response, concomitant immunosuppression and post-transplant time interval.Test was performed on whole blood using [employer] QMS reagent and a Corby [place] AU analyzer. Specimen Performing Laboratory [facility] [address] [place] [address] * PROTIME INR (PT) (09/03/2017 9:45 AM) Component Value Ref Range INR 1.1 0.8 - 1.2 Specimen Performing Laboratory [facility] [address] [place] [address] * COMPREHENSIVE METABOLIC PANEL (09/03/2017 9:45 AM) Component Value Ref Range Sodium 137 137 - 147 MMOL/L Potassium 3.7 3.5 - 5.1 MMOL/L Chloride 99 98 - 110 MMOL/L Glucose 140 (H) 70 - 100 MG/DL Blood Urea Nitrogen 27 (H) 7 - 25 MG/DL Creatinine 8.17 (H) 0.4 - 1.24 MG/DL Calcium 10.8 (H) 8.5 - 10.6 MG/DL Total Protein 6.1 6.0 - 8.0 G/DL Total Bilirubin 0.3 0.3 - 1.2 MG/DL Albumin 3.1 (L) 3.5 - 5.0 G/DL Alk Phosphatase 55 25 - 110 U/L AST (SGOT) 10 7 - 40 U/L CO2 27 21 - 30 MMOL/L ALT (SGPT) 7 7 - 56 U/L Anion Gap 11 3 - 12 eGFR Non 6 (L) >60 mL/min Comment: The eGFR is not validated for use in drug dosing adjustments.Continue to use estimated creatinine clearance per dosing reference text.Please contact the Clinical Pharmacist for questions. eGFR 8 (L) >60 mL/min Comment: The eGFR is not validated for use in drug dosing adjustments.Continue to use estimated creatinine clearance per dosing reference text.Please contact the Clinical Pharmacist for questions. Specimen Performing Laboratory [facility] [address] [place] [address] * CBC AND DIFF (09/03/2017 9:45 AM) Component Value Ref Range White Blood Cells 4.2 (L) 4.5 - 11.0 K/UL RBC 3.20 (L) 4.4 - 5.5 M/UL Hemoglobin 8.3 (L) 13.5 - 16.5 GM/DL Hematocrit 24.3 (L) 40 - 50 % MCV 76.0 (L) 80 - 100 FL MCH 25.8 (L) 26 - 34 PG MCHC 34.0 32.0 - 36.0 G/DL RDW 20.8 (H) 11 - 15 % Platelet Count 235 150 - 400 K/UL MPV 6.6 (L) 7 - 11 FL Neutrophils 79 (H) 41 - 77 % Lymphocytes 11 (L) 24 - 44 % Monocytes 7 4 - 12 % Eosinophils 2 0 - 5 % Basophils 1 0 - 2 % Absolute Neutrophil Count 3.30 1.8 - 7.0 K/UL Absolute Lymph Count 0.50 (L) 1.0 - 4.8 K/UL Absolute Monocyte Count 0.30 0 - 0.80 K/UL Absolute Eosinophil Count 0.10 0 - 0.45 K/UL Absolute Basophil Count 0.00 0 - 0.20 K/UL Specimen Performing Laboratory [facility] [address] [place] [address] * CT CHEST WO CONTRAST (09/02/2017 8:19 [...] Correa M.D. on 09/02/2017 8:58 AM. * PROTIME INR (PT) (09/02/2017 5:51 AM) Component Value Ref Range INR 1.1 0.8 - 1.2 Specimen Performing Laboratory [facility] [address] [place] [address] * COMPREHENSIVE METABOLIC PANEL (09/02/2017 5:51 AM) Component Value Ref Range Sodium 136 (L) 137 - 147 MMOL/L Potassium 3.8 3.5 - 5.1 MMOL/L Chloride 98 98 - 110 MMOL/L Glucose 97 70 - 100 MG/DL Blood Urea Nitrogen 15 7 - 25 MG/DL Creatinine 5.69 (H) 0.4 - 1.24 MG/DL Calcium 10.8 (H) 8.5 - 10.6 MG/DL Total Protein 6.7 6.0 - 8.0 G/DL Total Bilirubin 0.4 0.3 - 1.2 MG/DL Albumin 3.4 (L) 3.5 - 5.0 G/DL Alk Phosphatase 61 25 - 110 U/L AST (SGOT) 10 7 - 40 U/L CO2 28 21 - 30 MMOL/L ALT (SGPT) 8 7 - 56 U/L Anion Gap 10 3 - 12 eGFR Non 10 (L) [...] Specimen Performing Laboratory [facility] [address] [place] [address] * CBC AND DIFF (09/02/2017 5:51 AM) Component Value Ref Range White Blood Cells 5.2 4.5 - 11.0 K/UL RBC 3.91 (L) 4.4 - 5.5 M/UL Hemoglobin 10.0 (L) 13.5 - 16.5 GM/DL Hematocrit 29.6 (L) 40 - 50 % MCV 75.8 (L) 80 - 100 FL MCH 25.7 (L) 26 - 34 PG MCHC 33.9 32.0 - 36.0 G/DL RDW 20.2 (H) 11 - 15 % Platelet Count 255 150 - 400 K/UL MPV 6.8 (L) 7 - 11 FL Neutrophils 79 (H) 41 - 77 % Lymphocytes 10 (L) 24 - 44 % Monocytes 8 4 - 12 % Eosinophils 2 0 - 5 % Basophils 1 0 - 2 % Absolute Neutrophil Count 4.10 1.8 - 7.0 K/UL Absolute Lymph Count 0.50 (L) 1.0 - 4.8 K/UL Absolute Monocyte Count 0.40 0 - 0.80 K/UL Absolute Eosinophil Count 0.10 0 - 0.45 K/UL Absolute Basophil Count 0.00 0 - 0.20 K/UL Specimen Performing Laboratory [facility] [address] [place] [address] * EVEROLIMUS BLOOD (09/02/2017 5:51 AM) Component Value Ref Range Everolimus 10.6 (H) 3 - 10 ng/mL Comment: Target concentrations vary by type of transplant, patient response, concomitant immunosuppression and post-transplant time interval.Test was performed on whole blood using [employer] reagent and a Corby [employer] [place] AU analyzer. Specimen Performing Laboratory [facility] [address] [place] [address] * TACROLIMUS LEVEL(FK506) (09/02/2017 5:51 AM) Component Value Ref Range Tacrolimus 5.3 2 - 15 NG/ML Comment: Target concentrations vary by type of transplant, patient response, concomitant immunosuppression and post-transplant time interval.Test was performed on whole blood using Codar[employer] QMS reagent and a Corby Rianna AU analyzer. Specimen Performing Laboratory [facility] [address] [place] [address] * HEMODIALYSIS INPATIENT (09/01/2017 6:05 PM) Keiry Garcia RN 09/01/2017 11:09 PM Arrived to room 6213, verified identification and obtained consent.Dialysis machine checked and passed the test.Attached to cardiac, BP, and oximetry monitors.Pt with LLA AV fistula accessed, cannulated with 15 g fistula needles at first attempt. @1729Dialysis initiated, using 4K bath, UF goal is set for 1 liter per pt's tolerance.Dr. Collier notified. @2129Dialysis completed and blood returned with NS rinse. Decannulated needles and hemostasis achieved within 10 minutes. Removed 1 liter of fluid(net).VSS per trends.Report given to KIERSTEN Maurer. * HEMODIALYSIS DATE (09/01/2017 6:05 PM) Keiry Garcia RN 09/01/2017 11:09 PM Arrived to room 6213, verified identification and obtained consent.Dialysis machine checked and passed the test.Attached to cardiac, BP, and oximetry monitors.Pt with LLA AV fistula accessed, cannulated with 15 g fistula needles at first attempt. @1729Dialysis initiated, using 4K bath, UF goal is set for 1 liter per pt's tolerance.Dr. Collier notified. @2129Dialysis completed and blood returned with NS rinse. Decannulated needles and hemostasis achieved within 10 minutes. Removed 1 liter of fluid(net).VSS per trends.Report given to KIERSTEN Maurer. * COMPREHENSIVE METABOLIC PANEL (09/01/2017 8:00 AM) Component Value Ref Range Sodium 135 (L) 137 - 147 MMOL/L Potassium 3.1 (L) 3.5 - 5.1 MMOL/L Chloride 95 (L) 98 - 110 MMOL/L Glucose 112 (H) 70 - 100 MG/DL Blood Urea Nitrogen 34 (H) 7 - 25 MG/DL Creatinine 9.32 (H) 0.4 - 1.24 MG/DL Calcium 10.7 (H) 8.5 - 10.6 MG/DL Total Protein 6.3 6.0 - 8.0 G/DL Total Bilirubin 0.3 0.3 - 1.2 MG/DL Albumin 3.2 (L) 3.5 - 5.0 G/DL Alk Phosphatase 61 25 - 110 U/L AST (SGOT) 11 7 - 40 U/L CO2 27 21 - 30 MMOL/L ALT (SGPT) 8 7 - 56 U/L Anion Gap 13 (H) 3 - 12 eGFR Non 6 (L) >60 mL/min Comment: The eGFR is not validated for use in drug dosing adjustments.Continue to use estimated creatinine clearance per dosing reference text.Please contact the Clinical Pharmacist for questions. eGFR 7 (L) >60 mL/min Comment: The eGFR is not validated for use in drug dosing adjustments.Continue to use estimated creatinine clearance per dosing reference text.Please contact the Clinical Pharmacist for questions. Specimen Performing Laboratory [facility] [address] [place] [address] * CBC AND DIFF (09/01/2017 8:00 AM) Component Value Ref Range White Blood Cells 4.9 4.5 - 11.0 K/UL RBC 3.42 (L) 4.4 - 5.5 M/UL Hemoglobin 8.6 (L) 13.5 - 16.5 GM/DL Hematocrit 26.2 (L) 40 - 50 % MCV 76.6 (L) 80 - 100 FL MCH 25.0 (L) 26 - 34 PG MCHC 32.6 32.0 - 36.0 G/DL RDW 20.2 (H) 11 - 15 % Platelet Count 245 150 - 400 K/UL MPV 6.1 (L) 7 - 11 FL Neutrophils 78 (H) 41 - 77 % Lymphocytes 14 (L) 24 - 44 % Monocytes 7 4 - 12 % Eosinophils 1 0 - 5 % Basophils 0 0 - 2 % Absolute Neutrophil Count 3.90 1.8 - 7.0 K/UL Absolute Lymph Count 0.70 (L) 1.0 - 4.8 K/UL Absolute Monocyte Count 0.30 0 - 0.80 K/UL Absolute Eosinophil Count 0.00 0 - 0.45 K/UL Absolute Basophil Count 0.00 0 - 0.20 K/UL Specimen Performing Laboratory [facility] [address] [place] [address] * CHEST SINGLE VIEW (08/31/2017 7:39 PM) Specimen Performing Laboratory [facility] RESULTS Impressions Findings/impression: 1. There is persistent dense patchy consolidation within the right upper lung. Mild hazy opacity suggests within the right lower lung. These findings are unchanged or slightly worse than on the prior CXR study. 2. Heart and mediastinum are within normal limits and unchanged from prior study. No pleural effusions. Finalized by Suresh Swanson M.D. on 09/01/2017 9:28 AM. Dictated by Suresh Swanson M.D. on 09/01/2017 9:25 AM. 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 There is persistent dense patchy consolidation within the right upper lung. Mild hazy opacity suggests within the right lower lung. These findings are unchanged or slightly worse than on the prior CXR study. 2. Heart and mediastinum are within normal limits and unchanged from prior study. No pleural effusions. Finalized by Suresh Swanson M.D. on 09/01/2017 9:28 AM. Dictated by Suresh Swanson M.D. on 09/01/2017 9:25 AM. * PTT (APTT) (08/31/2017 7:07 PM) Component Value Ref Range APTT 27.7 21.0 - 39.0 SEC Specimen Performing Laboratory [facility] [address] [place] [address] * PROTIME INR (PT) (08/31/2017 7:07 PM) Component Value Ref Range INR 1.1 0.8 - 1.2 Specimen Performing Laboratory [facility] [address] [place] [address] * PHOSPHORUS (08/31/2017 6:30 PM) Component Value Ref Range Phosphorus 6.6 (H) 2.0 - 4.0 MG/DL Specimen Performing Laboratory [facility] [address] [place] [address] * MAGNESIUM (08/31/2017 6:30 PM) Component Value Ref Range Magnesium 2.0 1.6 - 2.6 mg/dL Specimen Performing Laboratory [facility] [address] [place] [address] * CBC AND DIFF (08/31/2017 6:30 PM) Component Value Ref Range White Blood Cells 5.7 4.5 - 11.0 K/UL RBC 3.35 (L) 4.4 - 5.5 M/UL Hemoglobin 8.6 (L) 13.5 - 16.5 GM/DL Hematocrit 25.8 (L) 40 - 50 % MCV 77.0 (L) 80 - 100 FL MCH 25.6 (L) 26 - 34 PG MCHC 33.2 32.0 - 36.0 G/DL RDW 21.0 (H) 11 - 15 % Platelet Count 235 150 - 400 K/UL MPV 6.6 (L) 7 - 11 FL Neutrophils 79 (H) 41 - 77 % Lymphocytes 11 (L) 24 - 44 % Monocytes 9 4 - 12 % Eosinophils 1 0 - 5 % Basophils 0 0 - 2 % Absolute Neutrophil Count 4.50 1.8 - 7.0 K/UL Absolute Lymph Count 0.60 (L) 1.0 - 4.8 K/UL Absolute Monocyte Count 0.50 0 - 0.80 K/UL Absolute Eosinophil Count 0.10 0 - 0.45 K/UL Absolute Basophil Count 0.00 0 - 0.20 K/UL Specimen Performing Laboratory [facility] [address] [place] [address] * COMPREHENSIVE METABOLIC PANEL (08/31/2017 6:30 PM) Component Value Ref Range Sodium 134 (L) 137 - 147 MMOL/L Potassium 3.4 (L) 3.5 - 5.1 MMOL/L Chloride 94 (L) 98 - 110 MMOL/L Glucose 98 70 - 100 MG/DL Blood Urea Nitrogen 29 (H) 7 - 25 MG/DL Creatinine 8.42 (H) 0.4 - 1.24 MG/DL Calcium 10.3 8.5 - 10.6 MG/DL Total Protein 6.2 6.0 - 8.0 G/DL Total Bilirubin 0.3 0.3 - 1.2 MG/DL Albumin 3.4 (L) 3.5 - 5.0 G/DL Alk Phosphatase 56 25 - 110 U/L AST (SGOT) 13 7 - 40 U/L CO2 28 21 - 30 MMOL/L ALT (SGPT) 9 7 - 56 U/L Anion Gap 12 3 - 12 eGFR Non 6 (L) >60 mL/min Comment: The eGFR is not validated for use in drug dosing adjustments.Continue to use estimated creatinine clearance per dosing reference text.Please contact the Clinical Pharmacist for questions. eGFR 8 (L) >60 mL/min Comment: The eGFR is not validated for use in drug dosing adjustments.Continue to use estimated creatinine clearance per dosing reference text.Please contact the Clinical Pharmacist for questions. Specimen Performing Laboratory [facility] [address] [place] [address] * CULTURE-BLOOD W/SENSITIVITY (08/31/2017 6:30 PM) Component Value Ref Range Battery Name BLOOD CULTURE Specimen Description BLOOD LEFT HAND Special Requests NONE Culture NO GROWTH 5 DAYS Report Status FINAL 09/06/2017 Specimen Performing Laboratory [facility] [address] [place] [address] * CULTURE-BLOOD W/SENSITIVITY (08/31/2017 6:15 PM) Component Value Ref Range Battery Name BLOOD CULTURE Specimen Description BLOOD LEFT ANTECUBITAL aerobic bottle only Special Requests Culture performed on specimen with less than the recommended volume of 10 ml/bottle. Decreased volume will affect sensitivity of culture. Culture NO GROWTH 5 DAYS Report Status FINAL 09/06/2017 Specimen Performing Laboratory [facility] [address] [place] [address] * GENERAL RAD CHEST EXTERNAL IMAGING (07/26/2017) Narrative This order has been auto finalized and does not contain a result. * GENERAL RAD CHEST EXTERNAL IMAGING (07/24/2017) Narrative This order has been auto finalized and does not contain a result. 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 Diagnosis unknown Other unknown and unspecified cause of morbidity or mortality GERD (gastroesophageal reflux disease) Esophageal reflux Severe malnutrition (HCC) Nutritional marasmus Admitting Diagnoses Diagnosis Lung Cancer vs TB Acid-fast bacteria present Mycobacterial infection - Acid-fast bacteria present Unspecified diseases due to mycobacteria Primary adenocarcinoma of lung, unspecified laterality (HCC) - Acid-fast bacteria present Administered Medications Medication Order MAR Action Action Date Dose Rate Site acetaminophen (TYLENOL) tablet 650 mg Given 09/04/2017 650 mg 650 mg, Oral, EVERY 4 HOURS PRN, 06:01 CDT Starting 09/04/17 at 0442, Until 09/14/17 at 1604, Pain non-opioid: may be used alone or in combination with opioid analgesia, TOTAL ACETAMINOPHEN DOSE NOT TO EXCEED 4GM DAILY albuterol 0.5% (PROVENTIL; VENTOLIN) Given 09/07/2017 2.5 mg nebulizer solution 2.5 mg 21:03 CDT 2.5 mg, Inhalation, RT TWICE DAILY AND PRN, First dose on 09/01/17 at 0600, Until Discontinued, When administered by RT, will be per RT policy. Given 09/08/2017 2.5 mg 08:04 CDT Given 09/08/2017 2.5 mg 19:51 CDT albuterol 0.5% (PROVENTIL; VENTOLIN) Given 09/13/2017 2.5 mg nebulizer solution 2.5 mg 17:10 CDT 2.5 mg, Inhalation, RT EVERY 4 HOURS, First dose on Lizzie 09/13/17 at 0815, Until Discontinued, When administered by RT, will be per RT policy. albuterol 0.5% (PROVENTIL; VENTOLIN) Given 09/13/2017 2.5 mg nebulizer solution 2.5 mg 20:50 CDT 2.5 mg, Inhalation, RT FOUR TIMES DAILY AND PRN, First dose on Lizzie 09/13/17 at 2000, Until Discontinued, When administered by RT, will be per RT policy. Given 09/14/2017 2.5 mg 13:06 CDT alum/mag hydroxide/simeth (MYLANTA, Given 09/03/2017 30 mL MAALOX PLUS) oral suspension 30 mL 21:15 CDT 30 mL, Oral, ONCE, 1 dose, 09/03/17 at 2100 amLODIPine (NORVASC) tablet 10 mg Given 09/05/2017 10 mg 10 mg, Oral, DAILY, First dose on Sat 16:06 CDT 09/01/17 at 0900, Until Discontinued, NURSING: Please educate patient and document: Do not give with grapefruit juice. Given 09/06/2017 10 mg 09:09 CDT Given 09/08/2017 10 mg 09:33 CDT apixaban (ELIQUIS) tablet 5 mg Given 09/07/2017 5 mg 5 mg, Oral, TWICE DAILY, First dose on 21:01 CDT 09/07/17 at 2100, Until Discontinued, NOTE: This is a HIGH ALERT Medication. apixaban (ELIQUIS) tablet 5 mg Given 09/13/2017 5 mg 5 mg, Oral, TWICE DAILY, First dose on 08:32 CDT 09/08/17 at 1130, Until Discontinued, NOTE: This is a HIGH ALERT Medication. Given 09/13/2017 5 mg 21:08 CDT Given 09/14/2017 5 mg 12:49 CDT aspirin chewable tablet 81 mg Given 09/12/2017 81 mg 81 mg, Oral, DAILY, First dose on Sat 12:26 CDT 09/01/17 at 0900, Until Discontinued Given 09/13/2017 81 mg 08:32 CDT Given 09/14/2017 81 mg 12:49 CDT atorvastatin (LIPITOR) tablet 10 mg Given 09/12/2017 10 mg 10 mg, Oral, DAILY, First dose on Sat 12:27 CDT 09/01/17 at 0900, Until Discontinued Given 09/13/2017 10 mg 08:32 CDT Given 09/14/2017 10 mg 12:49 CDT doxazosin (CARDURA) tablet 2 mg Given 09/11/2017 2 mg 2 mg, Oral, DAILY, First dose on Sun 20:03 CDT 08/31/17 at 2100, Until Discontinued Given 09/12/2017 2 mg 20:11 CDT Given 09/13/2017 2 mg 21:08 CDT escitalopram oxalate (LEXAPRO) tablet 10 Given 09/12/2017 10 mg mg 12:27 CDT 10 mg, Oral, DAILY, First dose on 09/03/17 at 1530, Until Discontinued Given 09/13/2017 10 mg 08:32 CDT Given 09/14/2017 10 mg 12:49 CDT everolimus (immunosuppressive) Given 09/12/2017 1 mg (ZORTRESS) tablet 1 mg 20:13 CDT 1 mg, Oral, TWICE DAILY, First dose on Sun09/02/17 at 2100, Until Discontinued, Do NOT crush. No grapefruit or grapefruit juice. GLOVES should be worn by nursing. NOTE: This is a HIGH ALERT Medication. Given 09/13/2017 1 mg 08:35 CDT Given 09/13/2017 1 mg 18:34 CDT everolimus (immunosuppressive) Given 09/14/2017 1.5 mg (ZORTRESS) tablet 1.5 mg 05:59 CDT 1.5 mg, Oral, TWICE DAILY, First dose on Sun09/14/17 at 0600, Until Discontinued, Do NOT crush. No grapefruit or grapefruit juice. GLOVES should be worn by nursing. NOTE: This is a HIGH ALERT Medication. everolimus (immunosuppressive) Given 09/01/2017 2 mg (ZORTRESS) tablet 2 mg 10:36 CDT 2 mg, Oral, TWICE DAILY, First dose on Sun08/31/17 at 2100, Until Discontinued, Do NOT crush. No grapefruit or grapefruit juice. GLOVES should be worn by nursing. NOTE: This is a HIGH ALERT Medication. Given 09/01/2017 2 mg 22:57 CDT Given 09/02/2017 2 mg 09:30 CDT fentaNYL citrate PF (SUBLIMAZE) Given 09/04/2017 50 mcg injection 50 mcg 16:39 CDT 50 mcg, Intravenous, ONCE, 1 dose, 09/04/17 at 1515 fentaNYL citrate PF (SUBLIMAZE) Given 09/04/2017 25 mcg injection 16:43 CDT INTRA-PROCEDURE MED, Starting 09/04/17 at 1646, Until Discontinued Given 09/04/2017 25 mcg 16:46 CDT guaiFENesin (ROBITUSSIN) oral solution 100 mg 100 mg, Oral, EVERY 4 HOURS PRN, Starting Ilzzie 09/13/17 at 0713, Until 09/14/17 at 1604, Congestion heparin (porcine) 20,000 Units in Given - New 09/07/2017 2,147 26.8 mL/ hr dextrose 5% (D5W) 250 mL IV infusion Bag 15:55 CDT Units/hr (dbl conc) 0-2,000 Units/hr (0-25 mL/hr) 250 mL, at 0-25 mL/hr, Intravenous, TITRATE DIRECTED , Starting Sun09/07/17 at 1545, Until Sun09/07/17 at 2043, Admin Instructions: - Weight-Based Heparin Protocol - Venous Thromboembolism (VTE) - See separate order for initial IV bolus (from bag) - Initial IV infusion 18 units/kg/hr. Initial IV infusion not to exceed 2,000 units/hr - Follow Heparin Infusion Scale - WITH ADJUSTMENT BOLUS for subsequent bolus and rate changes Heparin Infusion Scale - WITH ADJUSTMENT BOLUS aPTT Adj Bolus Dose Pause Infusion Infusion Rate Repeat (secs) (units/kg) (minutes) (units/hr) <65 40 0 Increase 200 units/hr in 6 hours 65-74 20 0 Increase 100 units/hr in 6 hours 75-120 0 0 No Change in 6 hours/qAM* 121-129 0 60 Decrease 100 units/hr in 6 hours 130-150 0 90 Decrease 200 units/hr in 6 hours >150 0 90 Decrease 200 units/hr ++ * After 2 consecutive therapeutic aPTT, go to q AM ++ After 90 minutes, restart heparin at reduced rate AND draw an aPTT. If aPTT remains greater than 120 follow protocol (pause infusion for specified time then decrease infusion rate per protocol), if aPTT is 120 or less continue with reduced rate. Redraw aPTT in 6 hrs and follow protocol. ====NOTE: This is a HIGH ALERT Medication. Dbl conc=80units/mL. NOTE: This is a HIGH ALERT Medication. Dose/Rate Verify 09/07/2017 2,147 26.8 mL/hr 18:45 CDT Units/hr Dose/Rate Verify 09/07/2017 2,147 26.8 mL/hr 19:19 CDT Units/hr heparin (porcine) 20,000 units/D5W 500 Dose/Rate 09/05/2017 1,679 42 mL /hr mL infusion (std conc)(premade) Verify 07:55 CDT Units/hr 100-2,000 Units/hr (2.5-50 mL/hr) 500 mL, at 2.5-50 mL/hr, Intravenous, TITRATE DIRECTED , Starting 09/04/17 at 1915, Until Sun09/05/17 at 1042, Weight-Based Heparin Protocol - Venous Thromboembolism (VTE) (fluid restricted patients) - See separate order for initial IV bolus (from vial) - Initial IV infusion 18 units/kg/hr. Not to exceed 2,000 units/hr - Follow Heparin Infusion Scale - WITH ADJUSTMENT BOLUS for subsequent bolus and rate changes Heparin Infusion Scale - WITH ADJUSTMENT BOLUS aPTT Adj Bolus Dose Pause Infusion Infusion Rate Repeat (secs) (units/kg) (minutes) (units/hr) <65 40 0 Increase 200 units/hr in 6 hours 65-74 20 0 Increase 100 units/hr in 6 hours 75-120 0 0 No Change in 6 hours/qAM* 121-129 0 60 Decrease 100 units/hr in 6 hours 130-150 0 90 Decrease 200 units/hr in 6 hours >150 0 90 Decrease 200 units/hr ++ * After 2 consecutive therapeutic aPTT, go to q AM ++ After 90 minutes, restart heparin at reduced rate AND draw an aPTT. If aPTT remains greater than 120 follow protocol (pause infusion for specified time then decrease infusion rate per protocol), if aPTT is 120 or less continue with reduced rate. Redraw aPTT in 6 hrs and follow protocol. ====NOTE: This is a HIGH ALERT Medication. Bolus from Infusion 09/05/2017 3,730 93.3 mL/hr 10:10 CDT Units/hr Dose/Rate Change 09/05/2017 1,879 47 mL/hr 10:27 CDT Units/hr heparin (porcine) 20,000 units/D5W 500 Given - New 09/05/2017 1,879 47 mL/hr mL infusion (std conc)(premade) Bag 15:40 CDT Units/hr 100-2,000 Units/hr (2.5-50 mL/hr) 500 mL, at 2.5-50 mL/hr, Intravenous, TITRATE DIRECTED , Starting 09/05/17 at 1045, Until Sun09/05/17 at 2344, Weight-Based Heparin Protocol - Venous Thromboembolism (VTE) (fluid restricted patients) - See separate order for initial IV bolus (from vial) - Initial IV infusion 18 units/kg/hr. Not to exceed 2,000 units/hr - Follow Heparin Infusion Scale - WITH ADJUSTMENT BOLUS for subsequent bolus and rate changes Heparin Infusion Scale - WITH ADJUSTMENT BOLUS aPTT Adj Bolus Dose Pause Infusion Infusion Rate Repeat (secs) (units/kg) (minutes) (units/hr) <65 40 0 Increase 200 units/hr in 6 hours 65-74 20 0 Increase 100 units/hr in 6 hours 75-120 0 0 No Change in 6 hours/qAM* 121-129 0 60 Decrease 100 units/hr in 6 hours 130-150 0 90 Decrease 200 units/hr in 6 hours >150 0 90 Decrease 200 units/hr ++ * After 2 consecutive therapeutic aPTT, go to q AM ++ After 90 minutes, restart heparin at reduced rate AND draw an aPTT. If aPTT remains greater than 120 follow protocol (pause infusion for specified time then decrease infusion rate per protocol), if aPTT is 120 or less continue with reduced rate. Redraw aPTT in 6 hrs and follow protocol. ====NOTE: This is a HIGH ALERT Medication. Dose/Rate Change 09/05/2017 1,979 49.5 mL/hr 18:17 CDT Units/hr Dose/Rate Verify 09/05/2017 1,979 49.5 mL/hr 19:13 CDT Units/hr heparin (porcine) 20,000 units/D5W 500 Given - New 09/07/2017 1,847 46.2 mL/hr mL infusion (std conc)(premade) Bag 06:44 CDT Units/hr 0-2,000 Units/hr (0-50 mL/hr) 500 mL, at 0-50 mL/hr, Intravenous, TITRATE DIRECTED , Starting Lizzie 09/06/17 at 1630, Until 09/07/17 at 1330, - Weight-Based Heparin Protocol - Venous Thromboembolism (VTE) - See separate order for initial IV bolus (from bag) - Initial IV infusion 18 units/kg/hr. Initial IV infusion not to exceed 2,000 units/hr - Follow Heparin Infusion Scale - WITH ADJUSTMENT BOLUS for subsequent bolus and rate changes Heparin Infusion Scale - WITH ADJUSTMENT BOLUS aPTT Adj Bolus Dose Pause Infusion Infusion Rate Repeat (secs) (units/kg) (minutes) (units/hr) <65 40 0 Increase 200 units/hr in 6 hours 65-74 20 0 Increase 100 units/hr in 6 hours 75-120 0 0 No Change in 6 hours/qAM* 121-129 0 60 Decrease 100 units/hr in 6 hours 130-150 0 90 Decrease 200 units/hr in 6 hours >150 0 90 Decrease 200 units/hr ++ * After 2 consecutive therapeutic aPTT, go to q AM ++ After 90 minutes, restart heparin at reduced rate AND draw an aPTT. If aPTT remains greater than 120 follow protocol (pause infusion for specified time then decrease infusion rate per protocol), if aPTT is 120 or less continue with reduced rate. Redraw aPTT in 6 hrs and follow protocol. ====NOTE: This is a HIGH ALERT Medication. Dose/Rate Change 09/07/2017 2,047 51.2 mL/hr 06:45 CDT Units/hr Dose/Rate Verify 09/07/2017 2,047 51.2 mL/hr 07:28 CDT Units/hr heparin (porcine) 20,000 units/D5W 500 Given - New 09/07/2017 2,147 53.7 mL/hr mL infusion (std conc)(premade) Bag 14:40 CDT Units/hr 0-2,000 Units/hr (0-50 mL/hr) 500 mL, at 0-50 mL/hr, Intravenous, TITRATE DIRECTED , Starting Sun09/07/17 at 1345, Until Sun09/07/17 at 1531, - Weight-Based Heparin Protocol - Venous Thromboembolism (VTE) - See separate order for initial IV bolus (from bag) - Initial IV infusion 18 units/kg/hr. Initial IV infusion not to exceed 2,000 units/hr - Follow Heparin Infusion Scale - WITH ADJUSTMENT BOLUS for subsequent bolus and rate changes Heparin Infusion Scale - WITH ADJUSTMENT BOLUS aPTT Adj Bolus Dose Pause Infusion Infusion Rate Repeat (secs) (units/kg) (minutes) (units/hr) <65 40 0 Increase 200 units/hr in 6 hours 65-74 20 0 Increase 100 units/hr in 6 hours 75-120 0 0 No Change in 6 hours/qAM* 121-129 0 60 Decrease 100 units/hr in 6 hours 130-150 0 90 Decrease 200 units/hr in 6 hours >150 0 90 Decrease 200 units/hr ++ * After 2 consecutive therapeutic aPTT, go to q AM ++ After 90 minutes, restart heparin at reduced rate AND draw an aPTT. If aPTT remains greater than 120 follow protocol (pause infusion for specified time then decrease infusion rate per protocol), if aPTT is 120 or less continue with reduced rate. Redraw aPTT in 6 hrs and follow protocol. ====NOTE: This is a HIGH ALERT Medication. heparin (porcine) BOLUS for continuous Given 09/06/2017 3,660 Units inf (bag) 1,830-3,660 Units 23:42 CDT 1,830-3,660 Units (20-40 Units/kg 91.5 kg), Intravenous, SEE ADMIN INSTRUCTIONS, Starting Lizzie 09/06/17 at 1720, Until Sun09/07/17 at 1330, ADJUSTMENT BOLUS for heparin drip -- VTE Treatment Weight-Based Heparin Protocol - Follow heparin infusion scale - WITH ADJUSTMENT BOLUS for subsequent bolus and rate changes. - Administer adjustment bolus dose via pump from infusion bag. Heparin Infusion Scale - WITH ADJUSTMENT BOLUS aPTT Adj Bolus Dose Pause Infusion Infusion Rate Repeat (secs) (units/kg) (minutes) (units/hr) <65 40 0 Increase 200 units/hr in 6 hours 65-74 20 0 Increase 100 units/hr in 6 hours 75-120 0 0 No Change in 6 hours/qAM* 121-129 0 60 Decrease 100 units/hr in 6 hours 130-150 0 90 Decrease 200 units/hr in 6 hours >150 0 90 Decrease 200 units/hr ++ * After 2 consecutive therapeutic aPTT, go to q AM ++ After 90 minutes, restart heparin at reduced rate AND draw an aPTT. If aPTT remains greater than 120 follow protocol (pause infusion for specified time then decrease infusion rate per protocol), if aPTT is 120 or less continue with reduced rate. Redraw aPTT in 6 hrs and follow protocol. ====NOTE: This is a HIGH ALERT Medication. Given 09/07/2017 3,660 Units 06:45 CDT heparin (porcine) BOLUS for continuous Given 09/07/2017 1,830 Units inf (bag) 1,830-3,660 Units 14:35 CDT 1,830-3,660 Units (20-40 Units/kg 91.5 kg), Intravenous, SEE ADMIN INSTRUCTIONS, Starting Sun09/07/17 at 1329, Until Sun09/07/17 at 1531, ADJUSTMENT BOLUS for heparin drip -- VTE Treatment Weight-Based Heparin Protocol - Follow heparin infusion scale - WITH ADJUSTMENT BOLUS for subsequent bolus and rate changes. - Administer adjustment bolus dose via pump from infusion bag. Heparin Infusion Scale - WITH ADJUSTMENT BOLUS aPTT Adj Bolus Dose Pause Infusion Infusion Rate Repeat (secs) (units/kg) (minutes) (units/hr) <65 40 0 Increase 200 units/hr in 6 hours 65-74 20 0 Increase 100 units/hr in 6 hours 75-120 0 0 No Change in 6 hours/qAM* 121-129 0 60 Decrease 100 units/hr in 6 hours 130-150 0 90 Decrease 200 units/hr in 6 hours >150 0 90 Decrease 200 units/hr ++ * After 2 consecutive therapeutic aPTT, go to q AM ++ After 90 minutes, restart heparin at reduced rate AND draw an aPTT. If aPTT remains greater than 120 follow protocol (pause infusion for specified time then decrease infusion rate per protocol), if aPTT is 120 or less continue with reduced rate. Redraw aPTT in 6 hrs and follow protocol. ====NOTE: This is a HIGH ALERT Medication. heparin (porcine) BOLUS for continuous Given 09/06/2017 7,320 Units inf (bag) 7,320 Units 16:49 CDT 7,320 Units (80 Units/kg 91.5 kg), Intravenous, ONCE, 1 dose, [facility] 09/06/17 at 1630, INITIAL BOLUS for heparin drip -- VTE Treatment Weight-Based Heparin Protocol - Initial IV bolus (from bag): 80 units/kg - Not to exceed 10,000 units - Administer initial bolus dose via pump from infusion bag. NOTE: This is a HIGH ALERT Medication. heparin (porcine) BOLUS for continuous Given 09/04/2017 7,460 Units inf (vial) 7,460 Units 20:50 CDT 7,460 Units (rounded from 7,464 Units=80 Units/kg 93.3 kg), Intravenous, ONCE, 1 dose, [facility] 09/04/17 at 1915, INITIAL BOLUS for heparin drip -- VTE Treatment Weight-Based Heparin Protocol (fluid restricted patients) - Initial IV bolus: 80 units/kg - Not to exceed 10,000 units - Administer Initial bolus from vial NOTE: This is a HIGH ALERT Medication. heparin (porcine) injection 1,870-3,730 Given 09/05/2017 1,870 Units Units 18:22 CDT 1,870-3,730 Units (rounded from 1,866-3,732 Units=20-40 Units/kg 93.3 kg), Intravenous, SEE ADMIN INSTRUCTIONS, Starting 09/05/17 at 1041, Until Sun09/05/17 at 2340, ADJUSTMENT BOLUS (from vial) for heparin drip -- VTE Treatment Weight-Based Heparin Protocol - Follow heparin infusion scale - WITH ADJUSTMENT BOLUS for subsequent bolus and rate changes. - Administer adjustment bolus from vial. Heparin Infusion Scale - WITH ADJUSTMENT BOLUS aPTT Adj Bolus Dose Pause Infusion Infusion Rate Repeat (secs) (units/kg) (minutes) (units/hr) <65 40 0 Increase 200 units/hr in 6 hours 65-74 20 0 Increase 100 units/hr in 6 hours 75-120 0 0 No Change in 6 hours/qAM* 121-129 0 60 Decrease 100 units/hr in 6 hours 130-150 0 90 Decrease 200 units/hr in 6 hours >150 0 90 Decrease 200 units/hr ++ * After 2 consecutive therapeutic aPTT, go to q AM ++ After 90 minutes, restart heparin at reduced rate AND draw an aPTT. If aPTT remains greater than 120 follow protocol (pause infusion for specified time then decrease infusion rate per protocol), if aPTT is 120 or less continue with reduced rate. Redraw aPTT in 6 hrs and follow protocol. ====NOTE: This is a HIGH ALERT Medication. heparin (porcine) PF syringe 5,000 Units Given 09/03/2017 5,000 Units Abdominal 5,000 Units, Subcutaneous, EVERY 8 15:00 CDT Tissue HOURS, First dose on Sun08/31/17 at 2200, Until Discontinued, NOTE: This is a HIGH ALERT Medication. Given 09/03/2017 5,000 Units Abdomen:LLQ 21:05 CDT Given 09/04/2017 5,000 Units Abdomen:LLQ 06:05 CDT iopamidol 370 (ISOVUE-370) injection 70 Given 09/04/2017 70 mL mL 18:30 CDT 70 mL, Intravenous, ONCE, 1 dose, e 09/04/17 at 1830, NOTE: This is a HIGH ALERT Medication. ipratropium bromide (ATROVENT) 0.02 % Given 09/07/2017 0.5 mg nebulizer solution 0.5 mg 21:03 CDT 0.5 mg, Inhalation, RT TWICE DAILY AND PRN, First dose on 09/01/17 at 0600, Until Discontinued, When administered by RT, will be per RT policy. Given 09/08/2017 0.5 mg 08:04 CDT Given 09/08/2017 0.5 mg 19:51 CDT ipratropium bromide (ATROVENT) 0.02 % Given 09/13/2017 0.5 mg nebulizer solution 0.5 mg 20:50 CDT 0.5 mg, Inhalation, RT FOUR TIMES DAILY AND PRN, First dose on Lizzie 09/13/17 at 2000, Until Discontinued, When administered by RT, will be per RT policy. Given 09/14/2017 0.5 mg 13:06 CDT midazolam (VERSED) injection 1-2 mg Given 09/04/2017 1 mg 1-2 mg, Intravenous, ONCE, 1 dose, Sun 16:35 CDT 09/04/17 at 1515 midazolam (VERSED) injection Given 09/04/2017 0.5 mg INTRA-PROCEDURE MED, Starting Sun 16:40 CDT 09/04/17 at 1640, Until Discontinued Given 09/04/2017 0.5 mg 16:44 CDT ondansetron (ZOFRAN) tablet 4 mg 4 mg, Oral, EVERY 6 HOURS PRN, Starting Sun09/03/17 at 2104, Until Sun09/14/17 at 1604, Nausea/Vomiting PO ONDANSETRON HCL (PF) 4 MG/2 ML IJ SOLN Given 09/03/2017 4 mg (Cabinet Override) 21:06 CDT NOW, 1 dose, Sun09/03/17 at 2100, Created by cabinet override oxybutynin XL (DITROPAN XL) tablet 10 mg Given 09/11/2017 10 mg 10 mg, Oral, AT BEDTIME DAILY, First 16:42 CDT dose on Sun09/04/17 at 2100, Until Discontinued, Do not crush or chew Given 09/12/2017 10 mg 16:14 CDT Given 09/13/2017 10 mg 15:43 CDT oxybutynin XL (DITROPAN XL) tablet 5 mg Given 09/01/2017 5 mg 5 mg, Oral, DAILY, First dose on Sun 09:09 CDT 08/31/17 at 1815, Until Discontinued, Do not crush or chew Given 09/02/2017 5 mg 09:30 CDT Given 09/03/2017 5 mg 10:26 CDT oxybutynin XL (DITROPAN XL) tablet 5 mg Given 09/03/2017 5 mg 5 mg, Oral, TWICE DAILY, First dose on 21:39 CDT 09/03/17 at 2100, Until Discontinued, Do not crush or chew Given 09/04/2017 5 mg 10:[address] (PROTONIX) tablet 40 mg Given 09/11/2017 40 mg 40 mg, Oral, DAILY, First dose on Sun 20:03 CDT 08/31/17 at 2100, Until Discontinued, Do not crush or chew tablet. Given 09/12/2017 40 mg 20:11 CDT Given 09/13/2017 40 mg 21:08 CDT piperacillin/tazobactam (ZOSYN) 2.25 Given - New 09/09/2017 2.25 g 100 mL/hr g/50 mL iso-osmotic IVPB Bag 10:30 CDT 2.25 g, Intravenous, at 100 mL/hr, EVERY 8 HOURS, First dose on Sun09/04/17 at 0600, Until Discontinued Given - New Bag 09/09/2017 2.25 g 100 mL/hr 18:10 CDT Given - New Bag 09/10/2017 2.25 g 100 mL/hr 02:13 CDT piperacillin/tazobactam (ZOSYN) 2.25 Given - New 09/10/2017 2.25 g 100 mL/hr g/50 mL iso-osmotic IVPB Bag 16:18 CDT 2.25 g, Intravenous, at 100 mL/hr, EVERY 8 HOURS, 1 dose, First dose on Sun09/10/17 at 1830 prochlorperazine (COMPAZINE) injection Given 09/03/2017 10 mg 10 mg 22:25 CDT 10 mg, Intravenous, ONCE, 1 dose, 09/03/17 at 2215, PROTECT FROM LIGHT -- May be given undiluted, or each 5mg may be diluted with 9 mL of NS to facilitate titration. RP DX F-18 FDG injection 15 millicurie Given 09/11/2017 14.8 15 millicurie, Intravenous, ONCE, 1 07:30 CDT millicuries dose, 09/11/17 at 0730 sevelamer carbonate (RENVELA) tablet 800 Given 09/13/2017 800 mg mg 13:11 CDT 800 mg, Oral, THREE TIMES DAILY WITH MEALS, First dose on 09/01/17 at 1800, Until Discontinued, Take with meals. Tablets should be swallowed whole; do not crush, break, or chew. Contents expand in water. Given 09/13/2017 800 mg 18:34 CDT Given 09/14/2017 800 mg 12:48 CDT sodium chloride 0.9 % infusion Given - 09/01/2017 300 mL 1,000 mL, 300 mL, Intravenous, PRN IN IP Bag 17:20 CDT DIALYSIS, 2 doses, Starting 09/01/17 at 1056, Until 09/01/17 at 2309, Other..., Prime Rinse, For Prime/Rinseback sodium chloride 0.9 % infusion Given - 09/03/2017 300 mL 1,000 mL, 300 mL, Intravenous, PRN IN IP Bag 10:17 CDT DIALYSIS, 2 doses, Starting 09/03/17 at 0517, Until 09/03/17 at 1516, Other..., Prime Rinse, For Prime/Rinseback sodium chloride 0.9 % infusion Given - 09/05/2017 300 mL 1,000 mL, 300 mL, Intravenous, PRN IN IP Bag 07:55 CDT DIALYSIS, 2 doses, Starting 09/05/17 at 0329, Until 09/10/17 at 1324, Other..., Prime Rinse, For Prime/Rinseback sodium chloride 0.9 % infusion Given - 09/06/2017 1,000 mL 20 mL/ hr 1,000 mL, 1,000 mL, Intravenous, at 20 Bag 13:56 CDT mL/hr, ONCE, 1 dose, Lizzie 09/06/17 at 1400 sodium chloride 0.9 % infusion Given - New 09/10/2017 300 mL 1,000 mL, 300 mL, Intravenous, PRN IN IP Bag 09:58 CDT DIALYSIS, 2 doses, Starting Sun09/10/17 at 0529, Until Sun09/12/17 at 1237, Other..., Prime Rinse, For Prime/Rinseback sodium chloride 0.9 % infusion Given - New 09/12/2017 300 mL 1,000 mL, 300 mL, Intravenous, PRN IN IP Bag 06:55 CDT DIALYSIS, 2 doses, Starting Sun09/12/17 at 0520, Until Sun09/12/17 at 1237, Other..., Prime Rinse, For Prime/Rinseback sodium chloride 0.9 % infusion 1,000 mL, 1,000 mL, Intravenous, PRN IN IP DIALYSIS, 1 dose, Starting Sun09/14/17 at 0250, Until Sun09/14/17 at 1604, for dialysis, Use to flush dialysis circuit during anticoagulation. Infuse 100-200 mL at 30-60 minute intervals, clamping arterial tubing during infusion. Only loan administrator can release and administer sodium chloride 0.9 % infusion 1,000 mL, 300 mL, Intravenous, PRN IN IP DIALYSIS, 1 dose, Starting Sun09/14/17 at 0250, Until Sun09/14/17 at 1604, Other..., Prime Rinse, For Prime/Rinseback Only loan administrator can release and administer. sodium chloride 0.9 % infusion 1,000 mL, 250 mL, Intravenous, PRN IN IP DIALYSIS, 1 dose, Starting Sun09/14/17 at 0250, Until Sun09/14/17 at 1604, Other..., hypotension secondary to dialysis, For bolus use only. May give bolus times 4, if blood pressure remains low contact the provider. Second Line therapy when ordered with Albumin. Only loan administrator can release and administer sodium chloride 3 % nebulizer solution Given 09/02/2017 15 mL Inhalation, RT NEEDED, Starting Sat 18:33 CDT 09/01/17 at 2020, Until Sun09/05/17 at 2225, RT PROTOCOL, When administered by RT, will be per RT policy. Given 09/03/2017 15 mL 05:43 CDT sodium chloride PF 0.9% injection 50 mL Given 09/04/2017 50 mL 50 mL, Intravenous, ONCE, 1 dose, Tue 18:30 CDT 09/04/17 at 1830, Intra-procedure (IR) tacrolimus (PROGRAF) capsule 0.5 mg Given 09/12/2017 0.5 mg 0.5 mg, Oral, TWICE DAILY, First dose on 20:11 CDT 09/02/17 at 2100, Until Discontinued, - Levels should be drawn immediately prior to morning dose. - For oral (PO) administration capsule is to be swallowed whole. - For sublingual (SL) administration capsule is to be opened and contents placed under tongue. -- Sublingual route is equivalent to 50% of oral route -- Given 09/13/2017 0.5 mg 08:32 CDT Given 09/13/2017 0.5 mg 18:34 CDT tacrolimus (PROGRAF) capsule 1 mg Given 09/01/2017 1 mg 1 mg, Oral, TWICE DAILY, First dose on 09:05 CDT 08/31/17 at 2100, Until Discontinued, - Levels should be drawn immediately prior to morning dose. - For oral (PO) administration capsule is to be swallowed whole. - For sublingual (SL) administration capsule is to be opened and contents placed under tongue. -- Sublingual route is equivalent to 50% of oral route -- Given 09/01/2017 1 mg 22:19 CDT Given 09/02/2017 1 mg 09:30 CDT tacrolimus (PROGRAF) capsule 1 mg Given 09/14/2017 1 mg 1 mg, Oral, TWICE DAILY, First dose on 05:59 CDT 09/14/17 at 0600, Until Discontinued, - Levels should be drawn immediately prior to morning dose. - For oral (PO) administration capsule is to be swallowed whole. - For sublingual (SL) administration capsule is to be opened and contents placed under tongue. -- Sublingual route is equivalent to 50% of oral route -- tamsulosin (FLOMAX) capsule 0.4 mg Given 08/31/2017 0.4 mg 0.4 mg, Oral, ONCE, 1 dose, Sun08/31/17 21:40 CDT at 1745, NURSING: Please educate patient and document: Give 1/2 hour following same meal everyday. Do not crush, chew or open the capsule. vancomycin (VANCOCIN) 1,000 mg in D5W Given - New 09/05/2017 1 g 200 mL/hr 200mL IVPB (premade) Bag 20:03 CDT 1 g, Intravenous, 200 mL, Administer over 60 Minutes, ONCE, 1 dose, 09/05/17 at 1830 vancomycin (VANCOCIN) 1,500 mg in Given - New 09/04/2017 1,500 mg 200 mL/hr dextrose 5% (D5W) IVPB Bag 06:19 CDT 1,500 mg (rounded from 1,399.5 mg=15 mg/kg 93.3 kg), Intravenous, 300 mL, Administer over 90 Minutes, ONCE, 1 dose, 09/04/17 at 0500, Note Pharmacokinetic Monitoring: Please record infusion start time (Action=Given) and stop time (Action=Completed) of dose when blood levels are drawn. in this encounter
--- OUTSIDE RECORDS SUMMARY | 2017-09-19 06:53 | XMS REPORT | Encounter Summary ---
Author Author [facility] Organization [facility] Address Unknown Phone Unavailable Care Team Providers Care Risk Modeler Name Role Phone Regan Brock MD Unavailable Prerna Gray APRN Unavailable Micah Pizano MD Unavailable Rudy Almendarez MD Unavailable Unavailable Yamile Rodriguez PhD Unavailable Arpan Blakely MD Unavailable Lida Yang Unavailable Doctor, Miscellaneous Unavailable Unavailable Josy Sampson MD Unavailable Guille Han MD Unavailable Miranda Gomez SPONGE FISHERMAN Unavailable Unavailable Rehana Arellano RN Unavailable Unavailable Hetal Mark MD Unavailable Luigi Callahan MD Unavailable Unavailable Bridget Yip MD Unavailable Harini Perez SPONGE FISHERMAN Unavailable Unavailable Monalisa Cardoza SPONGE FISHERMAN Unavailable Rah Franks MD Unavailable Mitul Rai MD Unavailable Monalisa Gtz SPONGE FISHERMAN Unavailable Fabiana Rodriguez MD Unavailable Jared Adam [...] Unavailable Fortino Hamm MD Unavailable Farhad Silva SPONGE FISHERMAN Unavailable Tonia David MD Unavailable Unavailable Josué Arellano MD Unavailable Nancy Garner MD Unavailable Reason for Visit * Auth/Cert Status Reason Specialty Diagnoses / Referred By Referred To Procedures Contact Contact Diagnoses Lung Cancer vs TB Acid-fast bacteria present Encounter Details Date Type Department Care Team Description 09/06/2017 Anesthesia Gastrointenstinal Omer Trevizo CRNA Event Endoscopy [address] [facility] [address] [place] [address] [place] [address] [phone] Anesthesia Record Procedure Name Responsible Anesthesia Start Time Anesthesia Stop Time Anesthesiologist BRONCHOSCOPY WITH LAVAGE No Tabares MD 09/06/17 1414 09/06/17 1500 (Right ) Date Time Event Comment 1336 AN Equip Check 2017 1414 Anes Start 1414 An Start Data 1417 An Induction The patient was reevaluated immediately before moderate or deep sedation use and before anesthesia induction. 1418 An Intubation 1423 Anesthesia Ready 1425 Quick Note Antibiotics not indicated 1427 Proc Start 1454 An Extubation Patient is spontaneously ventilating with adequate TV. Follows commands. Suctioned and extubated with positive pressure. Maintains own airway. VSS. Transfer to PACU with O2 via FM. Report to PARTS INTERPRETER. 1455 an stop data 1459 Handoff to RN I completed my SBAR handoff to the receiving nurse. 1500 An Stop Meds Name Total fentaNYL PF (SUBLIMAZE) injection 100 mcg propofol (DIPRIVAN) 200 mg/ 20 mL 200 mg injection (VIAL) ondansetron (ZOFRAN) injection 4 mg phenylephrine (GEOFF-SYNEPHRINE) 0.1 mg/mL 300 mcg injection (SYRINGE) propofol (DIPRIVAN) infusion 68.63 mg sodium chloride 0.9 % infusion (1000 300 mL mL bag) * Name O2 N2O Inspired N2O Sevoflurane Inspired Sevoflurane * No blood administrations on file. Type Details Placement Removal Wounds 07/21/15; 1759; RT, LO, PO; Back; 07/21/15 1759 by (NOT for Surgical Incision; biopsy site Lester Gordon RN Pressure Injuries) AV 12/21/15; (OR); R; Arm, Lower 12/21/15 0000 by Shunt/Fist Mey Gill RN jennifer Wounds 12/21/15; 0845; RT; Arm; Surgical 12/21/15 0845 by Sky, (NOT for Incision; SUTURES, MASTISOL, 4X4'S, KIERSTEN Del Real Pressure HYPAFIX TAPE Injuries) Wounds 04/07/16; 1300; Right; Head; Surgical 04/07/16 1300 by Andrew, (NOT for Incision; SUTURES, 4X4 AND PAPER TAPE. KIERSTEN Epstein Pressure Injuries) Wounds 01/26/17; 1535; Head; Surgical Incision; 01/26/17 1535 by Sally, (NOT for SCALP CLOSED WITH SUTURES. DRESSED WITH KIERSTEN Hernandez Pressure BACITRACIN, XEROFORM, 4X4S, HYPAFIX, AND Injuries) BANDNET. Peripheral 09/04/17; 0547; IV Therapy; L; Hand; 20 09/04/17 0547 by Krop, 09/13/17 1330 by Tamica, IV G; No; 1; 1 inches (Blood cultures and [place], KIERSTEN Sheldon, equipment operator/laborer drawn.); 09/13/17; 1330 CVC 09/04/17; 1650; IR; Dr gupta; Correct 09/04/17 1650 by Nabilhof, 1330 by Tamica, Tunneled Patient, Correct Procedure, Correct KIERSTEN Lopez, RN Non-Cuffed Patient Position, Correct Equipment / Double Implants Available, Marking Waived, Not Lumen Side Specific; Full Body Sterile Drape; Chlorhexadine (CHG); Internal Jugular, Right; 5 FR; Sutured, Chlorhexadine (CHG) impregnated sponge; X-ray; 09/13/17; 1330 ETT 09/06/17; 1417; Ventilated by mask (1); 09/06/17 1417 by [place], 05/14 1454 by Santhosh, Video laryngoscopy, Stylet; Omer, TREE SHEAR OPERATOR Omer, TREE SHEAR OPERATOR Single-Lumen, Cuffed; 8.5mm; GlideScope; 3; Oral; 1-Full view of the glottis; 1 insertion attempt; Auscultation, ETCO2 Detector; 23 centimeters; Atraumatic. Dentition unchanged.; 09/06/17; 1454 in this encounter Social History Tobacco Use Types Packs/Day Years [...] impairment: No 05/14/2017 as of this encounter OR Notes * Anesthesia Postprocedure Evaluation - No Tabares MD - 09/06/2017 4:02 PM CDT Post-Anesthesia Evaluation Name: Oleg Hendricks : 1940 Age: 76 y.o. Sex: male Procedure Date: 09/06/2017 Procedure: Procedure(s): BRONCHOSCOPY WITH LAVAGE BRONCHOSCOPY WITH BIOPSY- no fluro needed- HIGH RISK FOLLOW PROTOCOL Surgeon: Surgeon(s): Jareth Calvin MD Shaikh, Faizan, MD Post-Anesthesia Vitals BP: (91-95)/(42-49) Pulse: [69-76] Respirations: [14 PER MINUTE-21 PER MINUTE] SpO2: [92 %-99 %] SpO2 Pulse: [70-76] Post Anesthesia Evaluation Note Evaluation location: other (GI) Patient participation: recovered; patient participated in evaluation Level of consciousness: alert Pain score: 0 Pain management: adequate Hydration: normovolemia Temperature: 36.0C - 38.4C Airway patency: adequate Perioperative Events Perioperative events: no Post-op nausea and vomiting: no PONV Postoperative Status Cardiovascular status: hemodynamically stable Respiratory status: spontaneous ventilation and supplemental oxygen (6 L NC - requiring that prior to procedure) Follow-up needed: none Additional comments: To floor Perioperative Events Perioperative Event: No Emergency Case Activation: No * Anesthesia Preprocedure Evaluation - No Tabares MD - 09/06/2017 1:28 PM CDT Formatting of this note may be different from the original. Anesthesia Pre-Procedure Evaluation Name: Oleg Hendricks : 1940 Age: 76 y.o. Sex: male Procedure Date: 09/06/2017 Procedure: Procedure(s): BRONCHOSCOPY WITH LAVAGE BRONCHOSCOPY WITH BIOPSY- no fluro needed- HIGH RISK FOLLOW PROTOCOL Physical Assessment Vital Signs (last filed in past 24 hours): BP: 117/50 (09/06 1041) Temp: 37.2 C (99 F) (09/06 1041) Pulse: 80 (09/06 1041) Respirations: 16 PER MINUTE (09/06 1041) SpO2: 93 % (09/06 1041) O2 Delivery: Nasal Cannula (09/06 1041) Patient History Allergies Allergen Reactions Adhesive BLISTERS Skin tears Current Medications Medication Directions albuterol (PROAIR HFA) 90 mcg/actuation inhaler Inhale [...] every 8 hours as needed for Pain. Review of Systems/Medical History Patient summary reviewed Nursing notes reviewed Pertinent labs reviewed Difficult IV access PONV Screening: Postoperative opioids and Non-smoker No history of anesthetic complications No family history of anesthetic complications Airway - negative Pulmonary Not a current smoker (Quit in 1988 62 pyh) COPD, mild No indications/hx of pneumonia Hx pulmonary embolus (Positive this admission. off heparin since yesterday) Sleep apnea Interventions: CPAP; compliant Pt initially admitted this visit to rule out TB. TB ruled out. Lung masses known. 94% on 6 L Cardiovascular Recent diagnostic studies: ECG, echocardiogram and stress test Sinus rhythm markedly posterior QRS axis Borderline prolonged QT Echo 07/03/12: LVEF 65% Mild concentric left ventricular hypertrophy. 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 Abdominal Findings: Obese Neurological Findings: Negative Diagnostic Tests Hematology: Lab Results Component Value Date HGB 7.4 09/06/2017 HCT 22.3 09/06/2017 PLTCT 242 09/06/2017 WBC 5.9 09/06/2017 NEUT 90 09/05/2017 ANC 6.70 09/05/2017 LYMPH 17 05/31/2017 ALC 0.40 09/05/2017 LASHAWN 4 09/05/2017 AMC 0.30 09/05/2017 EOSA 1 09/05/2017 ABC 0.00 09/05/2017 BASOPHILS 0 05/31/2017 MCV 76.2 09/06/2017 MCH 25.1 09/06/2017 MCHC 32.9 09/06/2017 MPV 6.9 09/06/2017 RDW 20.3 09/06/2017 General Chemistry: Lab Results Component Value Date NA 135 09/06/2017 K 3.7 09/06/2017 CL 98 09/06/2017 CO2 30 09/06/2017 GAP 7 09/06/2017 BUN 17 09/06/2017 CR 5.13 09/06/2017 GLU 109 09/06/2017 GLU 130 05/31/2017 CA 10.2 09/06/2017 ALBUMIN 3.0 09/05/2017 OBSCA 1.12 01/06/2013 MG 1.9 09/04/2017 TOTBILI 0.5 09/05/2017 PO4 3.5 09/04/2017 Coagulation: Lab Results Component Value Date PT 13.1 07/14/2015 PTT 69.5 09/05/2017 INR 1.1 09/06/2017 Anesthesia Plan ASA score: 4 Plan: general Induction method: intravenous NPO status: acceptable Comments: (Power PICC right chest. 20g PIV. Risks including but not limited to prolonged intubation, OH, CVA and discussed with patient. Pt willing to proceed) Informed Consent Anesthetic plan and risks discussed with patient. Use of blood products discussed with patient; consented to blood products. Plan discussed with: anesthesiologist and TREE SHEAR OPERATOR. Addendum: Potassium on Friday 01/26 on this MWF HD patient was 4.2 and in the normal range. in this encounter Miscellaneous Notes * Addendum Note - Shawn Castro DO - 09/07/2017 6:41 AM CDT Formatting of this note may be different from the original. Addendum created 09/07/17 0641 by Shawn Castro DO Delete clinical note, Pend clinical note, Sign clinical note in this encounter Plan of Treatment Not on fileas of this encounter Visit Diagnoses Not on filein this encounter Administered Medications Medication Order MAR Action Action Date Dose Rate Site fentaNYL citrate PF (SUBLIMAZE) Given 09/06/2017 100 mcg injection 14:17 CDT INTRA-PROCEDURE MED, Starting Lizzie 09/06/17 at 1417, Until Discontinued, Pain Injectable, Anesthesia Intra-op ondansetron (ZOFRAN) injection Given 09/06/2017 4 mg Intravenous, INTRA-PROCEDURE MED, 14:47 CDT Starting Lizzie 09/06/17 at 1447, Until Discontinued, Nausea/Vomiting Injectable, Anesthesia Intra-op phenylephrine in NS Injection Given 09/06/2017 100 mcg Intravenous, INTRA-PROCEDURE MED, 14:31 CDT Starting Lizzie 09/06/17 at 1431, Until Discontinued, Symptomatic Hypotension, Anesthesia Intra-op Given 09/06/2017 200 mcg 14:35 CDT propofol (DIPRIVAN) infusion Given - New 09/06/2017 50 27.5 mL/hr 20 mL, INTRA-PROCEDURE MED(CONT), Bag 14:26 CDT mcg/kg/min Starting Lizzie 09/06/17 at 1426, Until Discontinued, Anesthesia Intra-op Dose/Rate Change 09/06/2017 25 13.7 mL/hr 14:35 CDT mcg/kg/min propofol (DIPRIVAN) injection Given 09/06/2017 150 mg INTRA-PROCEDURE MED, Starting Lizzie 14:17 CDT 09/06/17 at 1417, Until Discontinued, Anesthesia Intra-op Given 09/06/2017 50 mg 14:21 CDT sodium chloride 0.9 % infusion Given - New 09/06/2017 INTRA-PROCEDURE MED(CONT), Starting Lizzie Bag 14:02 CDT 09/06/17 at 1402, Until Discontinued, Anesthesia Intra-op in this encounter
--- OUTSIDE RECORDS SUMMARY | 2017-09-19 06:53 | XMS REPORT | Encounter Summary ---
Author Author [facility] Organization [facility] Address Unknown Phone Unavailable Care Team Providers Care Railroad Accountant Name Role Phone Regan Brock MD Unavailable Prerna Gray APRN Unavailable Micah Pizano MD Unavailable Rudy Almendarez MD Unavailable Unavailable Yamile Rodriguez PhD Unavailable Arpan Blakely MD Unavailable Lida Yang Unavailable Doctor, Miscellaneous Unavailable Unavailable Josy Sampson MD Unavailable Guille Han MD Unavailable Miranda Gomez DESK DIRECTOR Unavailable Unavailable Rehana Arellano RN Unavailable Unavailable Hetal Mark MD Unavailable Luigi Callahan MD Unavailable Unavailable Bridget Yip MD Unavailable Harini Perez DESK DIRECTOR Unavailable Unavailable Monalisa Cardoza DESK DIRECTOR Unavailable Rah Franks MD Unavailable Mitul Rai MD Unavailable Monalisa Gtz DESK DIRECTOR Unavailable Fabiana Rodriguez MD Unavailable Jared [...] Unavailable Fortino Hamm MD Unavailable Farhad Silva DESK DIRECTOR Unavailable Tonia David MD Unavailable Unavailable Josué Arellano MD Unavailable Nancy Garner MD Unavailable Encounter Details Date Type Department Care Team Description 09/06/2017 Procedure Pass Gastrointenstinal Endoscopy [address] [place] [address] Social History Tobacco Use Types Packs/Day Years [...]
--- OUTSIDE RECORDS SUMMARY | 2017-09-19 06:53 | XMS REPORT | Encounter Summary ---
Author Author [facility] Organization [facility] Address Unknown Phone Unavailable Care Team Providers Care Junior Qa Analyst Name Role Phone Regan Brock MD Unavailable Prerna Gray APRN Unavailable Micah Pizano MD Unavailable Rudy Almendarez MD Unavailable Unavailable Yamile Rodriguez PhD Unavailable Arpan Blakely MD Unavailable Lida Yang Unavailable Doctor, Miscellaneous Unavailable Unavailable Josy Sampson MD Unavailable Guille Han MD Unavailable Miranda Gomez STAFF RADIOLOGIST Unavailable Unavailable Rehana Arellano RN Unavailable Unavailable Hetal Mark MD Unavailable Luigi Callahan MD Unavailable Unavailable Bridget Yip MD Unavailable Harini Perez STAFF RADIOLOGIST Unavailable Unavailable Monalisa Cardoza STAFF RADIOLOGIST Unavailable Rah Franks MD Unavailable Mitul Rai MD Unavailable Monalisa Gtz STAFF RADIOLOGIST Unavailable Fabiana Rodriguez MD Unavailable Jared Adam [...] Unavailable Fortino Hamm MD Unavailable Farhad Silva STAFF RADIOLOGIST Unavailable Tonia David MD Unavailable Unavailable Josué Arellano MD Unavailable Nancy Garner MD Unavailable Encounter Details Date Type Department Care Team Description 09/07/2017 Documentation The [facility] Exam [address] [place] [address] Social History Tobacco Use Types Packs/Day Years [...] as of this encounter Progress Notes * Justin Wattersley - 09/07/2017 2:02 PM CDT Disc of images including Chest XR 3.1.18, 2..18 received from Ana Sargent. Disc of images delivered to radiology to be loaded into PACS by 4.18.18 in this encounter Plan of Treatment Not on fileas of this encounter Visit Diagnoses Not on filein this encounter
--- OUTSIDE RECORDS SUMMARY | 2017-09-19 06:56 | XMS REPORT | Encounter Summary ---
Author Author [facility] Organization [facility] Address Unknown Phone Unavailable Care Team Providers Care Employment Coordinator Name Role Phone Regan Brock MD Unavailable Prerna Gray APRN Unavailable Micah Pizano MD Unavailable Rudy Almendarez MD Unavailable Unavailable Yamile Rodriguez PhD Unavailable Arpan Blakely MD Unavailable Lida Yang Unavailable Doctor, Miscellaneous Unavailable Unavailable Josy Sampson MD Unavailable Guille Han MD Unavailable Miranda Gomez LOGGING ASSISTANT Unavailable Unavailable Rehana Arellano RN Unavailable Unavailable Hetal Mark MD Unavailable Luigi Callahan MD Unavailable Unavailable Bridget Yip MD Unavailable Harini Perez LOGGING ASSISTANT Unavailable Unavailable Monalisa Cardoza LOGGING ASSISTANT Unavailable Rah Franks MD Unavailable Mitul Rai MD Unavailable Monalisa Gtz LOGGING ASSISTANT Unavailable Fabiana Rodriguez MD Unavailable Jared Adam [...] Unavailable Fortino Hamm MD Unavailable Farhad Silva LOGGING ASSISTANT Unavailable Tonia David MD Unavailable Unavailable Josué Arellano MD Unavailable Nancy Garner MD Unavailable Encounter Details Date Type Department Care Team Description 09/04/2017 Procedure Pass Medical Telemetry [address] [place] [address] Social History Tobacco Use Types Packs/Day Years [...]
--- OUTSIDE RECORDS SUMMARY | 2017-09-19 06:56 | XMS REPORT | Encounter Summary ---
Author Author [facility] Organization [facility] Address Unknown Phone Unavailable Care Team Providers Care Lip Reading Teacher Name Role Phone Rgean Brock MD Unavailable Prerna Gray APRN Unavailable Micah Pizano MD Unavailable Rudy Almendarez MD Unavailable Unavailable Yamile Rodriguez PhD Unavailable Arpan Blakely MD Unavailable Lida Yang Unavailable Doctor, Miscellaneous Unavailable Unavailable Josy Sampson MD Unavailable Guille Han MD Unavailable Miranda Gomez PETROL TANKER DRIVER Unavailable Unavailable Rehana Arellano RN Unavailable Unavailable Hetal Mark MD Unavailable Luigi Callahan MD Unavailable Unavailable Bridget Yip MD Unavailable Harini Perez PETROL TANKER DRIVER Unavailable Unavailable Monalisa Cardoza PETROL TANKER DRIVER Unavailable Rah Franks MD Unavailable Mitul Rai MD Unavailable Monalisa Gtz PETROL TANKER DRIVER Unavailable Fabiana Rodriguez MD Unavailable Jared Adam [...] Unavailable Unavailable Wilma Mckeon Unavailable Unavailable Jayla Wies Unavailable Unavailable Enoch Hawkins RN 2 Unavailable Daysi Pretty MA Unavailable Unavailable Fortino Hamm MD Unavailable Farhad Silva PETROL TANKER DRIVER Unavailable Tonia David MD Unavailable Unavailable Josué Arellano MD Unavailable Nancy Garner MD Unavailable Reason for Visit * Reason Comments Navigation Assessment Encounter Details Date Type Department Care Team Description 08/27/2017 Telephone [facility] Jamie Ventura MD [facility] Exam [address] [place] [address] [place] [address] [phone] Social History Tobacco Use Types Packs/Day Years [...] encounter Miscellaneous Notes * Telephone Encounter - Teri Hopkins RN - 08/27/2017 9:29 AM CDT Navigation Intake Assessment Document Patient Name: Oleg Hendricks : 1940 Insurance: Medicare Appointment Info: 09/18/[address] Ventura Diagnosis & Reason for Visit: New lung cancer, discuss treatment options Physician Info: Referring Physician: Dr. Regan Brock, hepatology Contact Name & Number: [phone] PCP: Dr. Faizan Lin in [place], [place] Other: Dr. Lida Yang, nephrology, Dr. Rah Franks, dermatology Location of Films: PACS Location of Pathology: [facility] in [place], [place] History of Present Illness: He has a history of end-stage liver disease due to history of FELIX/alcohol related cirrhosis. 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 His posttransplant course has been complicated by biliary stricture disease with prior stenting. He has developed chronic kidney disease and has now been on hemodialysis since May of 2016. 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 He has been maintained on everolimus, for his immunosuppression. He was recently hospitalized with repeated pneumonias. Patient underwent bronchoscopy for persistent RUL infiltrates; path showed adenocarcinoma. Patient was scheduled to consult with Dr. Ventura; this had to be rescheduled due to pt admission to for concern for TB. 07/18/17 CT chest, RUL pneumonia 07/24/17-07/31/17 patient admitted to [facility] for persistent pneumonia. 08/03/17 CTA chest, right lung pneumonia. 08/10/17-08/20/17 admitted at [facility] for increasing weakness and fatigue. 08/11/17 CT chest, significant right lung airspace disease, persistent effusions. 08/13/17 bronchoscopy with RUL biopsy and brushing. 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 No other studies currently pending. 08/14/17 MRI brain, negative 08/31/17 admitted to [facility] for work up and management of positive AFB, possible TB. AFB sputum here negative x 3. JERED susceptibilities pending ( outside lab). 09/02/17 CT chest 09/04/17 CTA chest 09/06/17 bronchoscopy with BAL and TBB. BAL positive for malignant cells consistent with lung adenocarcinoma. No lesional tissue on TBB. 09/11/17 PET, hypermetabolic consolidation in RUL, as well as concern for regional LN metastasis and pleural metastasis. 09/14/17 notified by Chinyere Juarez APRN that patient is going home with hospice and appt with Dr. Ventura on 09/18 can be cancelled. Prior Treatment (XRT, Surgery, Chemotherapy): N/A Comments: Patient is discharged to [facility]. Patient's , Louise, says she will be able to check him out, and bring him to his appt with Dr. Ventura. She denies further needs at this time. They have received appt guide. NEEDS Assessment: Genetic Counseling: Not Applicable Nutrition: No needs identified Social Work/Financial: No need identified Spiritual & Emotional: Emotional support provided Physical: Wheelchair--weak, uses walker Communication: No needs identified Oncofertility - Females age 40 and under; Males age 50 and under : Not applicable in this encounter Plan of Treatment Not on fileas of this encounter Visit Diagnoses Not on filein this encounter
--- OUTSIDE RECORDS SUMMARY | 2017-09-19 06:56 | XMS REPORT | Encounter Summary ---
Author Author [facility] Organization [facility] Address Unknown Phone Unavailable Care Team Providers Care Technical Proposal Writer Name Role Phone Regan Brock MD Unavailable Prerna Gray APRN Unavailable Micah Pizano MD Unavailable Rudy Almendarez MD Unavailable Unavailable Yamile Rodriguez PhD Unavailable Arpan Blakely MD Unavailable Lida Yang Unavailable Doctor, Miscellaneous Unavailable Unavailable Josy Sampson MD Unavailable Guille Han MD Unavailable Miranda Gomez HAND TUBE WINDER Unavailable Unavailable Rehana Arellano RN Unavailable Unavailable Hetal Mark MD Unavailable Luigi Callahan MD Unavailable Unavailable Bridget Yip MD Unavailable Harini Perez HAND TUBE WINDER Unavailable Unavailable Monalisa Cardoza HAND TUBE WINDER Unavailable Rah Franks MD Unavailable Mitul Rai MD Unavailable Monalisa Gtz HAND TUBE WINDER Unavailable Fabiana Rodriguez MD Unavailable Jared Adam [...] Unavailable Fortino Hamm MD Unavailable Farhad Silva HAND TUBE WINDER Unavailable Tonia David MD Unavailable Unavailable Josué Arellano MD Unavailable Nancy Garner MD Unavailable Encounter Details Date Type Department Care Team Description 09/05/2017 Outpt. [facility] Conner Lynn MD [facility] - Internal [address] [facility] [place] [address] 4TH FLOOR POD C [phone] [address] [facility] [place] [address] Social History Tobacco Use Types [...] on fileas of this encounter Results * CULTURE-TB (AFB) (08/13/2017) Specimen Performing Laboratory Bronch Wash OTHER OUTSIDE LAB in this encounter Visit Diagnoses Not on filein this encounter
--- OUTSIDE RECORDS SUMMARY | 2017-09-19 06:56 | XMS REPORT | Encounter Summary ---
Author Author [facility] Address Unknown Phone Unavailable Care Team Providers Care Studio Set Up Worker Name Role Phone Regan Brock MD Unavailable Prerna Gray APRN Unavailable Micah Pizano MD Unavailable Rudy Almendarez MD Unavailable Unavailable Yamile Rodriguez PhD Unavailable Arpan Blakely MD Unavailable Lida Yang Unavailable Doctor, Miscellaneous Unavailable Unavailable Josy Sampson MD Unavailable Guille Han MD Unavailable Miranda Gomez STENCIL CUTTER Unavailable Unavailable Rehana Arellano RN Unavailable Unavailable Hetal Mark MD Unavailable Luigi Callahan MD Unavailable Unavailable Bridget Yip MD Unavailable Harini Perez STENCIL CUTTER Unavailable Unavailable Monalisa Cardoza STENCIL CUTTER Unavailable Rah Franks MD Unavailable Mitul Rai MD Unavailable Monalisa Gtz STENCIL CUTTER Unavailable Fabiana Rodriguez MD Unavailable Jared Adam MD Unavailable Thierry Garduno MD Unavailable Regan Gamble MD Unavailable Laly Ceaj MD Unavailable Unavailable Faith Fields MD Unavailable [...] Unavailable Fortino Hamm MD Unavailable Farhad Silva STENCIL CUTTER Unavailable Tonia David MD Unavailable Unavailable Josué Arellano MD Unavailable Nancy Garner MD Unavailable Encounter Details Date Type Department Care Team Description 08/27/2017 Ancillary Rad Outpatient, Radiologist Orders [address] [place] [address] Social History Tobacco Use Types Packs/Day Years [...] on fileas of this encounter Results * CT CHEST EXTERNAL IMAGING (08/03/2017 12:15 AM) Narrative This order has been auto finalized and does not contain a result. in this encounter Visit Diagnoses Not on filein this encounter
--- OUTSIDE RECORDS SUMMARY | 2017-09-19 06:56 | XMS REPORT | Encounter Summary ---
Author Author [facility] Address Unknown Phone Unavailable Care Team Providers Care Feed Mixer Name Role Phone Regan Brock MD Unavailable Prerna Gray APRN Unavailable Micah Pizano MD Unavailable Rudy Almendarez MD Unavailable Unavailable Yamile Rodriguez PhD Unavailable Arpan Blakely MD Unavailable Lida Yang Unavailable Doctor, Miscellaneous Unavailable Unavailable Josy Sampson MD Unavailable Guille Han MD Unavailable Miranda Gomez DESIGN/ANIMATION INSTRUCTOR Unavailable Unavailable Rehana Arellano RN Unavailable Unavailable Hetal Mark MD Unavailable Luigi Callahan MD Unavailable Unavailable Bridget Yip MD Unavailable aHrini Perez DESIGN/ANIMATION INSTRUCTOR Unavailable Unavailable Monalisa Cardoza DESIGN/ANIMATION INSTRUCTOR Unavailable Rah Franks MD Unavailable Mitul Rai MD Unavailable Monalisa Gtz DESIGN/ANIMATION INSTRUCTOR Unavailable Fabiana Rodriguez MD Unavailable Jared Adam MD Unavailable Thierry Garduno MD Unavailable Regan Gamble MD Unavailable Laly Ceja MD Unavailable Unavailable Faith Fields MD Unavailable Samantha Puritt MD Unavailable Unavailable Андрей Griffin MD Unavailable [...] Unavailable Fortino Hamm MD Unavailable Farhad Silva DESIGN/ANIMATION INSTRUCTOR Unavailable Tonia David MD Unavailable Unavailable Josué Arellano MD Unavailable Nancy Garner MD Unavailable Encounter Details Date Type Department Care Team Description 09/02/2017 Procedure [facility] Medical Telemetry [address] [place] [address] Social History Tobacco Use Types Packs/Day Years [...]
--- OUTSIDE RECORDS SUMMARY | 2017-09-19 06:56 | XMS REPORT | Encounter Summary ---
Author Author [facility] Organization [facility] Address Unknown Phone Unavailable Care Team Providers [employer] Name Role Phone Regan Brock MD Unavailable Prerna Gray APRN Unavailable Wendy Pizano MD Unavailable Rudy Almendarez MD Unavailable Unavailable Yamile Rodriguez PhD Unavailable Arpan Blakely MD Unavailable Lida Yang Unavailable Doctor, Miscellaneous Unavailable Unavailable Josy Sampson MD Unavailable Guille Han MD Unavailable Miranda Gomez MYCOLOGIST Unavailable Unavailable Rehana Arellano RN Unavailable Unavailable Hetal Mark MD Unavailable Luigi Callahan MD Unavailable Unavailable Bridget Yip MD Unavailable Harini Perez MYCOLOGIST Unavailable Unavailable Monalisa Cardoza MYCOLOGIST Unavailable Rah Franks MD Unavailable Mitul Rai MD Unavailable Monalisa Gtz MYCOLOGIST Unavailable Fabiana Rodriguez MD Unavailable Jared Adam [...] Unavailable Fortino Hamm MD Unavailable Farhad Silva MYCOLOGIST Unavailable Tonia David MD Unavailable Unavailable Josué Arellano MD Unavailable Nancy Garner MD Unavailable Reason for Visit * Auth/Cert Status Reason Specialty Diagnoses / Referred By Referred To Procedures Contact Contact Diagnoses 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 After-hours and weekends, please call [phone] and ask for the Interventional Manager Intern on-call. in this encounter Medications at Time [...] of this encounter Progress Notes * Irasema Acuna APRN-NP - 09/14/2017 2:04 PM CDT Formatting of [...] PSG approximately 10 years ago at [facility] ? Auto-titrating CPAP (max IPAP [...] discussed with attending physician, Dr. Cha. Irasema Acuna, MYCOLOGIST-MANAGER ADMINISTRATIVE Pager [phone] Subjective Slept well on auto-titrating CPAP last [...] 1306) Temp: 36.9 C (98.5 F) (09/14 130) Pulse: 88 (09/14 1306) Respirations: 20 PER MINUTE (09/14 1306) SpO2: 94 % (09/14 1306) O2 Delivery: Nasal Cannula (09/14 130) SpO2 [...] treatment - Patient planned to establish with [facility] Medical Oncology - BAL positive for [...] secondary hyperparathyroidism Continue phosphate binder Hypertension Continue MACHINE ENGRAVER Cardura History of GERD Continue MACHINE ENGRAVER pantoprazole FEN: Renal dialysis diet PPx: Heparin [...] superimposed pneumonia. Faith Jordan DO PGY-1 Pager [phone] Associated attestation - Monalisa Bruce MD - [...] Pt looking forward to DC and getting vest backer to home Total time of DC was [...] Pt transported off unit via cart by AMS. * Clinton Rosales MD - 09/14/2017 1:00 [...] with lab employee Monalisa Mccrary, sent to [facility] - Repeat AFB sputums x 3 smear [...] ID requested susceptibilities on 03/14, sent to [facility] for susceptibilities -Unclear need for treatment vs [...] Faith Redd MD Infectious Disease Fellow Pager: [phone] ATTESTATION I personally performed the yeh portions [...] (09/14 1123) Respirations: 22 PER MINUTE (09/14 1123) SpO2: 95 % (09/14 1123) O2 Delivery: Nasal Cannula (09/14 1100) SpO2 [...] no rashes Lines: PIV, RUE AV fistula 4/10 tunneled non cuffed RIJ 2L CVC Lab [...] RUL pneumonia - 07/24/17-07/31/17 patient admitted to [facility] for persistent pneumonia. - 08/10/17-08/20/17 admitted at [facility] for increasing weakness and fatigue. - 08/11/17 [...] Review: Pertinent radiology reviewed. Samantha Juarez APRN [phone] Associated attestation - Jamie Ventura MD - [...] of checkpoint inhibitors). 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 I discussed supportive care only at [...] Munguia MD Gastroenterology and hepatology fellow Pager: [phone] * Memetashia Andreina Susana, RT - 09/13/2017 5:59 PM CDT Formatting [...] Date: 09/13/2017 Yeh AC=Airway clearance AM=Aerosolized medication BA=[place] aerosol DB&C=Deep breathe & cough FEV1=Forced expiratory volume in first second) IC=Inspiratory capacity LE=Lung expansion MDI=Metered dose inhaler Neb=Nebulizer O2=Oxygen Oxim=Oximetry PEFR=Peak expiratory flow rate SET UP / OPERATOR=Rapid Response Team * Clinotn Rosales MD - 09/13/2017 5:44 PM CDT [...] with lab employee Monalisa Mccrary, sent to [facility] - Repeat AFB sputums x 3 smear neg, cultures pending - 09/11/17 PET/CT with hypermetabolic RUL consolidation with hypermetabolic paratracheal LN, and hypermetabolic pleural-based medial right hemithorax suggestive of pleural metastasis Possible secondary bacterial pneumonia Aspiration? -Decompensated overnight 09/03-10, possible aspiration broad abx with Vanc and [...] Faith Redd MD Infectious Disease Fellow Pager: [phone] ATTESTATION I personally performed the yeh portions [...] PER MINUTE (09/13 1516) SpO2: 94 % (04/19 1517) O2 Delivery: Nasal Cannula (09/13 1516) BP: [...] NGTD Pertinent radiology images viewed. 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 Patient states "I couldn't parts picker my left leg" [to bring it back] [...] and tactile assist to initiate sit to destination imagination coordinator a simultaneous motion. discussed need for nurse [...] By Assist March In Place Repetitions: [address] Assist: Minimal Assist Activity Limited [...] Discharge Recommendations: Inpatient Setting Equipment Recommendations: Cony Perez Therapist: Thea Marie Date: 09/13/2017 * Irasema Acuna APRN-KENNEY - 09/13/2017 9:18 AM CDT Formatting of [...] PSG approximately 10 years ago at [facility] ? Auto-titrating CPAP (max IPAP [...] discussed with attending physician, Dr. Cha. Irasema Acuna, ALICIA-MANAGER ADMINISTRATIVE Pager [phone] Subjective No acute events overnight. Resting comfortably [...] Intake/Output Summary (Last 24 hours) at 09/13/17 0919 Last data filed at 09/13/17 0005 Gross [...] treatment - Patient planned to establish with [facility] Medical Oncology - BAL positive for [...] secondary hyperparathyroidism Continue phosphate binder Hypertension Continue MACHINE ENGRAVER Cardura History of GERD Continue MACHINE ENGRAVER pantoprazole FEN: Renal dialysis diet PPx: Heparin [...] (PROTONIX) tablet 40 mg 40 mg Oral QDAY() sevelamer carbonate (RENVELA) tablet 800 mg 800 [...] superimposed pneumonia. Faith Jordan DO PGY-1 Pager [phone] Associated attestation - Monalisa Bruce MD - [...] with lab employee Monalisa Mccrary, sent to [facility] - Repeat AFB sputums x 3 smear [...] ID requested susceptibilities on 03/14, sent to [facility] for susceptibilities -Unclear need for treatment vs [...] Faith Redd MD Infectious Disease Fellow Pager: [phone] ATTESTATION I personally performed the yeh portions [...] NGTD Pertinent radiology images viewed. * Irasema Acuna APRN-MANAGER ADMINISTRATIVE - 09/12/2017 3:24 PM CDT Formatting of [...] PSG approximately 10 years ago at [facility] ? Auto-titrating CPAP (max IPAP 11) ? DME: [employer] ? Transitioned to BiPAP 20/4 d/t increased O2 requirements 09/06 during decompensation [...] discussed with attending physician, Dr. Semaj Acuna, MYCOLOGIST-MANAGER ADMINISTRATIVE Pager [phone] Subjective Was not able to tolerate home [...] (98.7 F) (09/12 120) Pulse: 73 (09/12 120) Respirations: 20 PER MINUTE (09/12 1201) SpO2: [...] Please also see concurrent surgical pathology report ([id number]). See comment. Comment: Immunohistochemical stains performed on [...] treatment - Patient planned to establish with [facility] Medical Oncology this week but has [...] secondary hyperparathyroidism Continue phosphate binder Hypertension Continue MACHINE ENGRAVER Cardura History of GERD Continue MACHINE ENGRAVER pantoprazole FEN: Renal dialysis diet PPx: Heparin [...] (09/12 1201) O2 Delivery: Nasal Cannula (09/12 1201) SpO2 Pulse: 70 (09/12 1130) BP: (122-151)/(55-67) [...] superimposed pneumonia. Faith Jordan DO PGY-1 Pager [phone] Associated attestation - Monalisa Bruce MD - [...] Intake: Improving, Marginally Adequate Estimated Calorie Needs: 1144-2545 kcal (25-28 kcal/kg desired wt) Estimated Protein [...] accepted for admission 08/31. Pt resided in half-way facility [facility]. Pt was eating lunch during visit , mostly spoke with family at bedside. He missed breakfast this a.m. d/t dialysis, so appetite is currently really good. He has been eating at least 2 meals a day, 50-100% of meals. He had a milkshake last night and drank a good amount of it. Was drinking protein shakes MACHINE ENGRAVER, but unsure of the brand. RD discussed [...] Time Frame: Throughout Stay Status: Met;Ongoing Dilma Adelita MS, RD, LD Pager: [phone] Phone: [phone] * Jonathon Munguia MD - 09/12/2017 12:55 [...] Munguia MD Gastroenterology and hepatology fellow Pager: [phone] * Marie Santillan, OT - 09/12/2017 11:30 [...] indicated. Therapist: Uziel Lincoln, Student Physical therapist family readiness support assistant Date: 09/12/2017 Associated attestation - Jenni Anaya [...] 94%. Will continue to monitor. * Faith Jordan, - 09/11/2017 3:33 PM CDT Formatting of [...] treatment - Patient planned to establish with [facility] Medical Oncology this week but has [...] secondary hyperparathyroidism Continue phosphate binder Hypertension Continue MACHINE ENGRAVER Cardura History of GERD Continue MACHINE ENGRAVER pantoprazole FEN: Renal dialysis diet PPx: Heparin [...] radiology reviewed. Faith Jordan DO PGY-1 Pager [phone] Associated attestation - Monalisa Bruce MD - [...] in review of test results, POC and cryptologic support specialist name: Monalisa Bruce MD Date: 09/11/2017 * Francia Bonds, HARPREET - 09/11/2017 11:15 AM CDT Formatting of this note may be different from the original. 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 Cha. Irasema Acuna, MYCOLOGIST-MANAGER ADMINISTRATIVE Pager [phone] Subjective Sitting up in chair eating breakfast. [...] (09/10 1400) Height: 188 cm (74") (09/11 07) BP: (111-150)/(49-73) Temp: [36.6 C (97.9 F)-36.9 [...] Value Ref Range Status 09/06/2017 Final [facility] [email or web address] Department of Pathology and Laboratory Medicine [address] [place] [address] Surgical Pathology Office: [phone] SURGICAL PATHOLOGY REPORT NAME: LIZ HENDRICKS SURG PATH #: [id number] MR #: [id number] SPECIMEN CLASS: SR BILLING #: [id number] ALT ID #: LOCATION: [id number] DATE OF PROCEDURE: 09/06/2017 AGE: 76 SEX: [...] report. +++ +++ Ej Delgado M.D. ksw/09/07/2017 ######################################################################## Material Received: A: right lower lobe [...] with lab employee Monalisa Mccrary, sent to [facility] - Repeat AFB sputums x 3 smear neg, cultures pending Possible secondary bacterial pneumonia Aspiration? -Decompensated overnight 09/03-10, possible aspiration broad abx with Vanc and [...] ID requested susceptibilities on 03/14, sent to [facility] for susceptibilities -Unclear need for treatment vs [...] Faith Redd MD Infectious Disease Fellow Pager: [phone] ATTESTATION I personally performed the yeh portions [...] Cannula (09/12 911) SpO2 Pulse: 70 (09/10 1399) Height: 188 cm (74") (09/11 724) BP: [...] no rashes Lines: PIV, RUE AV fistula / tunneled non cuffed RIJ 2L CVC Lab Review Hematology Recent Labs 09/09/1730009/10/17 0420 09/11/17 0350 WBC 4.3* 4.4* 4.8 [...] Walker Therapist: Uziel Lincoln, student Physical therapist family readiness support assistant Date: 09/11/2017 Associated attestation - Jenni Anaya [...] throughout the physical therapy session. * Cinda Merchant, RN - 09/11/2017 9:10 AM CDT Pt [...] Date: 09/11/2017 Yeh AC=Airway clearance AM=Aerosolized medication BA=[place] aerosol DB&C=Deep breathe & cough FEV1=Forced expiratory volume in first second) IC=Inspiratory capacity LE=Lung expansion MDI=Metered dose inhaler Neb=Nebulizer O2=Oxygen Oxim=Oximetry PEFR=Peak expiratory flow rate SET UP / OPERATOR=Rapid Response Team * Samantha Juarez APRN - [...] RUL pneumonia - 07/24/17-07/31/17 patient admitted to [facility] for persistent pneumonia. - 08/10/17-08/20/17 admitted at [facility] for increasing weakness and fatigue. 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 Ventura scheduled on 09/18/17 at 10:20 am at [facility] for formulation of treatment plan Patient seen [...] (09/10 1400) Height: 188 cm (74") (09/11 07) BP: (111-150)/(49-65) Temp: [36.6 C (97.8 F)-36.9 [...] Diagnostics Review: Pertinent radiology reviewed. Samantha Juarez, MYCOLOGIST [phone] Associated attestation - Suresh Garza DO - 09/11/2017 5:34 PM CDT Patient seen and examined. Medical record, including radiographic and laboratory studies, has been reviewed. The documentation of history, physical findings and plan outlined by the MANAGER ADMINISTRATIVE represent my own medical decision making. Patient and family informed of PET findings, and all questions answered to their satisfaction. Appointment with Dr. Ventura next week to formalize treatment options. Suresh Garza [facility] Consult [facility] * Ilda Uribe [...] with lab employee Monalisa Mccrary, sent to [facility] [employer] - Repeat AFB sputums x 3 smear [...] Faith Redd MD Infectious Disease Fellow Pager: [phone] ATTESTATION I personally performed the yeh portions [...] INR 1.2 1.3* 1.5* Chemistry Recent Labs 09/08/170 09/09/17 0301 09/10/17 0420 NA 137 135* [...] de-escalated to zosyn-->discontinue today after 7 days >MACHINE ENGRAVER CPAP 11-->now on hospital machine BiPAP with [...] treatment - Patient planned to establish with [facility] Medical Oncology this week but has [...] meals for hyperphosphatemia. Check iron studies. Continue MACHINE ENGRAVER phosphate binder Hypertension Continue MACHINE ENGRAVER Cardura History of GERD Continue MACHINE ENGRAVER pantoprazole FEN: Renal dialysis diet PPx: Heparin [...] (PROTONIX) tablet 40 mg 40 mg Oral QDAY() piperacillin/tazobactam (ZOSYN) 2.25 g/50 mL iso-osmotic IVPB [...] as indicated. Therapist: Jenni Anaya, Physical therapist family readiness support assistant Date: 09/10/2017 * Jonathon Munguia MD - [...] Munguia MD Gastroenterology and hepatology fellow Pager: [phone] * Francia Bonds OT - 09/10/2017 11:48 AM CDT OCCUPATIONAL THERAPY Patient unavailable due to being off the unit for dialysis. Francia Bonds, OT/L [id number] * Blanka Uriarte - 09/10/2017 9:27 AM [...] 5. OLT (2012) tacrolimus Follows with Dr. rBock 6. ESRD s/t immunosuppression T/TR/Sat dialysis 7. [...] discussed with attending physician, Dr. Semaj Acuna, MYCOLOGIST-MANAGER ADMINISTRATIVE Pager [phone] Subjective No acute events overnight. Feels breathing [...] Recent Labs 09/08/17 0320 09/09/17 0301 09/10/17 042 WBC 3.3* 4.3* 4.4* HGB 6.4* 7.1* [...] bronchoscopy today >Empiric abx de-escalated to zosyn >MACHINE ENGRAVER CPAP 11-->now on hospital machine BiPAP with [...] treatment - Patient planned to establish with [facility] Medical Oncology this week but has [...] meals for hyperphosphatemia. Check iron studies. Continue MACHINE ENGRAVER phosphate binder Hypertension Continue MACHINE ENGRAVER Cardura History of GERD Continue MACHINE ENGRAVER pantoprazole FEN: Renal dialysis diet PPx: Heparin [...] these ADL s with a cane or crutjose maria. Therapist: David Rivera, PT, DPT Date: 09/09/2017 * Wendy Elkins, RT - 09/08/2017 9:04 PM CDT Formatting [...] *Higher points indicate higher acuity. Therapist: WENDY ELKINS, RT Date: 09/08/2017 Yeh AC=Airway clearance AM=Aerosolized medication BA=[place] aerosol DB&C=Deep breathe & cough FEV1=Forced expiratory volume in first second) IC=Inspiratory capacity LE=Lung expansion MDI=Metered dose inhaler Neb=Nebulizer O2=Oxygen Oxim=Oximetry PEFR=Peak expiratory flow rate SET UP / OPERATOR=Rapid Response Team * Jenni Anaya, MACHINE ENGRAVER - 09/08/2017 2:52 PM CDT PHYSICAL THERAPY [...] Mental / Cognitive Status: Alert;Cooperative Persons Present: [place] Pain: Patient has no complaint of pain [...] or crutch. Therapist: Jenni Anaya, Physical therapist family readiness support assistant Date: 09/08/2017 * Francia Bonds, OT - 09/08/2017 2:25 PM CDT Formatting of this note may be different from the original. 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 Check iron studies. Continue MACHINE ENGRAVER phosphate binder Hypertension Continue MACHINE ENGRAVER amlodipine and Cardura History of GERD Continue MACHINE ENGRAVER pantoprazole FEN: Renal dialysis diet PPx: Heparin [...] Signs: 24 Hour Range BP: 122/50 (09/08 104) Temp: 36.9 C (98.5 F) (09/08 104) Pulse: 77 (09/08 1041) Respirations: 20 PER MINUTE (09/08 104) SpO2: 95 % (09/08 104) O2 Delivery: Nasal Cannula (09/08 104) SpO2 Pulse: 71 (09/07 1809) BP: (111-138)/(46-63) Temp: [36.7 C (98.1 F)-37.4 [...] notes, assessments, and/or procedures performed by Stephanie Balderrama, and concur with her/his documentation unless otherwise [...] to avoid excess volume administration. * Mariella Morris RN - 09/07/2017 2:16 PM CDT Received [...] Ebenezer to adjust heparin gtt. * Faith Jordan, DO - 09/07/2017 2:06 PM CDT Formatting [...] treatment - Patient planned to establish with [facility] Medical Oncology this week but has [...] meals for hyperphosphatemia. Check iron studies. Continue MACHINE ENGRAVER phosphate binder Hypertension Continue MACHINE ENGRAVER amlodipine and Cardura History of GERD Continue MACHINE ENGRAVER pantoprazole FEN: Renal dialysis diet PPx: Heparin [...] PCR HSV 1 and 2 NOT DETECTED [facility] HSV 1&2 Assay is a qualitative real-time PCR test for the direct detection and differentiation of HSV 1 and 2 DNA. This assay is FDA approved for testing cutaneous or mucocutaneous lesions from symptomatic patients. Performance on modifications of this test as well as other specimen types has been validated by the Department of Pathology and Laboratory Medicine at the [facility]. RVP VIRAL PANEL PCR Collection Time: [...] NOTE PT attempted to see pt with animal laboratory technician ([id number]) Pt declined out of bed activity despite MAX encouragement- of note pt on 4LO2 95% SPO2, pt to leave unit for PM dialysis, prior pt was up to chair requiring Ax2. PT discussed pt with daughter for PLOF (see addendd assessment). PT will continue to follow and treat as appropriate. Therapist: Laron Aguilar, PT DPT [id number] Date: 09/07/2017 * Conner Lynn MD - [...] Faith Redd MD Infectious Disease Fellow Pager: [phone] I have seen, personally evaluated, and discussed the patient's care with Dr. Redd, Infectious Diseases Fellow. I agree with the subjective notations, objective findings and agree with the plan of care as documented in this note with edits made by me as necessary. Conner Lynn MD Marine Equipment Sales Engineer Division of Infectious Diseases Dr. Rosales will round on Sunday. For any questions over the weekend please page the ID fellow administration physician at [phone] History of Present Illness This is a [...] (98.5 F) (09/07 1136) Pulse: 75 (09/07 113) Respirations: 18 PER MINUTE (09/07 1136) SpO2: 92 % (09/07 113) O2 Delivery: Nasal Cannula (09/07 1136) SpO2 [...] Current Oral Intake: Improving Estimated Calorie Needs: 3988-9064 kcal (25-28 kcal/kg desired wt) Estimated Protein [...] accepted for admission 08/31. Pt resided in half-way facility [facility]. Pt was sleeping during attempted visits today. [...] Time Frame: Throughout Stay Status: Met;Ongoing Dilma Ureña MS, RD, LD Pager: [phone] Phone: [phone] * Shu Amado MD - 09/07/2017 9:47 [...] reviewed. Ebenezer SAMAYOA Pulmonary/Critical Care Pager # [phone] 09/07/2017 * Wilma Killian, RT - 09/07/2017 [...] Date: 09/07/2017 Yeh AC=Airway clearance AM=Aerosolized medication BA=[place] aerosol DB&C=Deep breathe & cough FEV1=Forced expiratory volume in first second) IC=Inspiratory capacity LE=Lung expansion MDI=Metered dose inhaler Neb=Nebulizer O2=Oxygen Oxim=Oximetry PEFR=Peak expiratory flow rate SET UP / OPERATOR=Rapid Response Team * Lester Agarwal RN - [...] treatment - Patient planned to establish with [facility] Medical Oncology this week but has been hospitalized Plan: - Consult medical oncology - Consult pulmonology, as above >Repeat bronchoscopy today History of end-stage renal disease (secondary to immunosuppression) on Sunday, , Sunday dialysis Nephrology consulted, appreciate recs: Patient to continue his TTS dialysis schedule. Continue sevelamer 800 mg TID with meals for hyperphosphatemia. Check iron studies. Continue MACHINE ENGRAVER phosphate binder Hypertension Continue MACHINE ENGRAVER amlodipine and Cardura History of GERD Continue MACHINE ENGRAVER pantoprazole FEN: Renal dialysis diet PPx: Heparin [...] mg 2.5 mg Inhalation BID & PRN [Jul] amLODIPine (NORVASC) tablet 10 mg 10 mg Oral QDAY [Jul] aspirin chewable tablet 81 mg 81 mg Oral QDAY [Jul] atorvastatin (LIPITOR) tablet 10 mg 10 mg Oral QDAY [JUL Hold] doxazosin (CARDURA) tablet 2 mg 2 mg Oral QDAY [Jul] escitalopram oxalate (LEXAPRO) tablet 10 mg 10 mg Oral QDAY [Jul] everolimus (immunosuppressive) (ZORTRESS) tablet 1 mg 1 [...] Signs: 24 Hour Range BP: 112/51 (09/06 1402) Temp: 36.7 C (98.1 F) (09/06 140) Pulse: 80 (09/06 1403) Respirations: 17 PER MINUTE (09/06 1402) SpO2: 91 % (09/06 1402) O2 Delivery: Nasal Cannula (09/06 1402) BP: (112-133)/(49-57) Temp: [36.7 C (98.1 F)-37.2 [...] when he was admitted to Hospital in [place]). Pt stated recently he was using SPC [...] Comments: Progress ambulation as O2 demands allow, skilled nursing goal stairs, follow up post-op/biopsy RECOMMENDATIONS: PT [...] follow up. Therapist: Laron Aguilar, PT DPT [id number] Date: 09/06/2017 * Conner Lynn MD - [...] Mccrary on 09/04/17, plan to send to [facility] -Unclear need for treatment vs monitoring. [...] Faith Redd MD Infectious Disease Fellow Pager: [phone] I have seen, personally evaluated, and discussed the patient's care with Dr. Redd, Infectious Diseases Fellow. I agree with the subjective notations, objective findings and agree with the plan of care as documented in this note with edits made by me as necessary. Conner Lynn MD Marine Equipment Sales Engineer Division of Infectious Diseases D/w Pulmonary History [...] Signs: 24 Hour Range BP: 133/57 (09/06 033) Temp: 37 C (98.6 F) (09/06 333) Pulse: 81 (09/06 0607) Respirations: 18 PER MINUTE (09/06 333) SpO2: 92 % (09/06 0745) O2 Delivery: CPAP/BiPAP (Pt Owned) (09/06 0745) SpO2 Pulse: 72 (09/05 1200) BP: (94-133)/(40-71) [...] as needed. Essence Palma, PHARMD 09/05/2017 Pager [phone] * Omer Alvarado MD - 09/05/2017 2:22 [...] treatment - Patient planned to establish with [facility] Medical Oncology this week but has been hospitalized Plan: - Consult medical oncology - Consult pulmonology, as above History of end-stage renal disease (secondary to immunosuppression) on Sunday, , Sunday dialysis Nephrology consulted, appreciate recs: Patient to continue his TTS dialysis schedule. Continue sevelamer 800 mg TID with meals for hyperphosphatemia. Check iron studies. Continue MACHINE ENGRAVER phosphate binder Hypertension Continue MACHINE ENGRAVER amlodipine and Cardura History of GERD Continue MACHINE ENGRAVER pantoprazole FEN: Renal dialysis diet PPx: Heparin Code Status: DNAR-FI Disposition: Continue admission to inpatient internal medicine under care of the [facility] 2 team. Patient seen and discussed with Dr. Wilson. Faith Jodran, DO PGY-1 Subjective Liz Hendricks is a [...] Vital Signs: 24 Hour Range BP: 104/45 (09/06 1199) Temp: 36.9 C (98.4 F) (09/06 1199) [...] 86 (09/05 929) Height: 189 cm (74.41") (09/05 0800) BP: (98-133)/(47-62) Temp: [36.5 C (97.7 F)-37.2 C (98.9 F)] Pulse: [70-85] Respirations: [14 PER MINUTE-25 PER MINUTE] SpO2: [86 %-99 %] O2 Delivery: Nasal Cannula Intake/Output Summary (Last 24 hours) at 09/05/17933 Last data filed at 09/05/17 0624 Gross [...] and oriented x 3 LABS: Recent Labs 09/03/1745 09/04/17 0535 09/05/17 0300 NA 137 141 [...] Shantel Wolfe DO Pulmonary/Critical Care Pager # [phone] 09/05/2017 * Conner Lynn MD - 09/05/2017 [...] x 3, cx's pending -per communication with [facility] and faxed report, lung mass biopsy AFB cx grew JERED. ID requested susceptibilities be sent, discussed with lab employee Monalisa Mccrary on 09/04/17, plan to send to [facility] -Unclear need for treatment vs monitoring. [...] Faith Redd MD Infectious Disease Fellow Pager: [phone] I have seen, personally evaluated, and discussed the patient's care with Dr. Redd, Infectious Diseases Fellow. I agree with the subjective notations, objective findings and agree with the plan of care as documented in this note with edits made by me as necessary. Conner Lynn MD Marine Equipment Sales Engineer Division of Infectious Diseases History of Present [...] Signs: 24 Hour Range BP: 133/61 (09/05 032) Temp: 36.9 C (98.5 F) (09/05 032) [...] no rashes/lesions Lines: PIV, RUE AV fistula 09/04 tunneled [...] d/w pulmonary and IM. * Kaylynn Ortiz, RN - 09/05/2017 7:41 AM CDT 0741 patient [...] Date: 09/04/2017 Yeh AC=Airway clearance AM=Aerosolized medication BA=[place] aerosol DB&C=Deep breathe & cough FEV1=Forced expiratory volume in first second) IC=Inspiratory capacity LE=Lung expansion MDI=Metered dose inhaler Neb=Nebulizer O2=Oxygen Oxim=Oximetry PEFR=Peak expiratory flow rate SET UP / OPERATOR=Rapid Response Team * Neli Escobedo RN - [...] Munguia MD Gastroenterology and hepatology fellow Pager: [phone] Subjective Liz Hendricks is a 76 y.o. [...] C (98.9 F) (09/05 1155) Pulse: 85 (09/04 115) Respirations: 20 PER MINUTE (09/04 115) SpO2: 94 % (09/05 1155) O2 Delivery: [...] Range PH-ART-POC 7.51 (H) 7.35 - 7.45 [id number]-SST-WOA 38 35 - 45 MMHG PO2-ART-POC 55 (L) 80 - 100 MMHG Base Ex-ART-POC 8.0 MMOL/L O2 Sat-ART-POC 91.0 (L) 95 - 99 % Rgogmitzedo-CQA-SIM 30.7 (H) 21 - 28 MMOL/L POC [...] treatment - Patient planned to establish with [facility] Medical Oncology this week but has been hospitalized Plan: - Consult medical oncology - Consult pulmonology, as above History of end-stage renal disease (secondary to immunosuppression) on Sunday, , Sunday dialysis Nephrology consulted, appreciate recs: Patient to continue his TTS dialysis schedule. Continue sevelamer 800 mg TID with meals for hyperphosphatemia. Check iron studies. Continue MACHINE ENGRAVER phosphate binder Hypertension Continue MACHINE ENGRAVER amlodipine and Cardura History of GERD Continue MACHINE ENGRAVER pantoprazole FEN: Renal dialysis diet PPx: Heparin Code Status: DNAR-FI Disposition: Continue admission to inpatient internal medicine under care of the [facility] 2 team. Patient seen and discussed with [...] Range PH-ART-POC 7.51 (H) 7.35 - 7.45 [id number]-DTP-IGP 38 35 - 45 MMHG PO2-ART-POC 55 (L) 80 - 100 MMHG Base Ex-ART-POC 8.0 MMOL/L O2 Sat-ART-POC 91.0 (L) 95 - 99 % Bsrvlfxhqwo-LIN-FOH 30.7 (H) 21 - 28 MMOL/L POC [...] you for the consultation. Conner Lynn MD Marine Equipment Sales Engineer Division of Infectious Diseases History of Present [...] AFB smears, cx pending. No leukocytosis, afebrile. SET UP / OPERATOR overnight, increased o2 requirement briefly, now improved. Denies dyspnea, minimal cough. Had vomited around the time of SET UP / OPERATOR. No f/c/diaphoresis, no rash, no abd pain, [...] Vital Signs: 24 Hour Range BP: 110/51 (04/10 1156) Temp: 37.2 C (98.9 F) (09/05 1155) Pulse: 85 (09/05 1155) Respirations: 20 PER MINUTE (09/05 1155) SpO2: 94 % (09/05 1155) O2 Delivery: Nasal Cannula (09/04 09) BP: (109-160)/(51-72) Temp: [37 C (98.6 F)-38.4 [...] and IM. * Kaylynn Ortiz, KIERSTEN - 09/04/2017 2:54 PM CDT 1454 Patient [...] male End-stage renal disease on hemodialysis Sunday. [place] is right AV fistula. His dry weight [...] high Phosphate . NAHOMY COLLIER MD Pager [phone] Subjective Liz Hendricks is a 76 y.o. [...] 72 hours. Invalid input(s): PC02A * Sami Li RN - 09/04/2017 11:45 AM CDT Unable to [...] edema. Patient with increased O2 requirements overnight, SET UP / OPERATOR called. Patient is asymptomatic and in no [...] and oriented x 3 LABS: Recent Labs 09/02/17 0551 09/03/17 0945 09/04/17 [...] Shantel Wolfe DO Pulmonary/Critical Care Pager # [phone] 09/04/2017 * Miranda Peres, PHARMD - 09/04/2017 [...] adjust therapy as needed. Miranda Peres, PharmD, [facility] Internal Medicine Clinical Pharmacist * Carmita Rae, KIERSTEN - 09/04/2017 6:11 AM CDT SET UP / OPERATOR called @ 0524 for increased O2 demands (10-11L HFNC), temp 101.1F ax, AMS (A /Ox1-2). * Asia Luther RN - 09/04/2017 5:48 AM CDT Second set of blood cultures drawn peripherally, left hand, by IV therapy. * Manuel Franklin - 09/04/2017 5:44 AM CDT Sales Representative [employer] entered patient record to document that patient is Seven Day Christian per conversation with patient's Louise during rapid response event. The spiritual care team is available as needed, 18/12, through the [employer] switchboard ([phone]). For immediate response, please page [phone]. For a response within 24 hours, please submit an order in O2 for a head knitting machine fixer consult or call the administrative voicemail at [phone]. * RigobertoManuel - 09/04/2017 5:20 AM CDT Reason for Visit: Rapid response page. Suyapa/Nondenominational: Seventh Day Christian. Source of Purpose/Meaning: Not assessed as patient had a rapid response event in isolation location. Worries/Concerns/Struggles: Not assessed. Method(s) of Coping: Not assessed. Support System: Patient has for support system. Interventions/Plan: Sales Representative [employer] attended rapid response event. Sales Representative [employer] didn't enter the patient's isolation room. Patient's Louise left the room and thanked head knitting machine fixer for visiting. Patient's also said that her is Seventh Day Christian and didn't need a head knitting machine fixer at this time. Sales Representative [employer] thanked patient's for her time and took leave. The spiritual care team is available as needed, 18/12, through the [employer] switchboard ([phone]). For immediate response, please page [phone]. For a response within 24 hours, please submit an order in O2 for a head knitting machine fixer consult or call the administrative voicemail at [phone]. * Carmita Rae RN - 09/04/2017 4:35 AM CDT Formatting of [...] of ID, this author called the main [facility] phone number at on 09/01 in an attempt to ask for Tb and JERED PCR testing to be done on the sample from the patient's lung mass. This author was told that the [facility] lab is not open on weekends but will be open again on Sunday. This author left a request for a lab member to call the [facility] Med-2 team back on Sunday. --Pulmonary [...] treatment - Patient planned to establish with [facility] Medical Oncology this week but has been hospitalized Plan: - Consult medical oncology - Consult pulmonology, as above History of end-stage renal disease (secondary to immunosuppression) on Sunday, , Sunday dialysis Nephrology consulted, appreciate recs: Patient to continue his TTS dialysis schedule. Continue sevelamer 800 mg TID with meals for hyperphosphatemia. Check iron studies. Continue MACHINE ENGRAVER phosphate binder Hypertension Continue MACHINE ENGRAVER amlodipine and Cardura History of GERD Continue MACHINE ENGRAVER pantoprazole FEN: Renal dialysis diet PPx: Heparin [...] monitoring. Unlikely to be TB. -Would call [facility] lab and ask for TB and JERED PCR testing to be done on the sample from his lung mass - spoke with med 2 team, they've left messages, will continue to call. -Watch for antimicrobial toxicities -Will follow Thank you for the consultation. Conner Lynn MD Marine Equipment Sales Engineer Division of Infectious Diseases History of Present [...] 1230) O2 Delivery: None (Room Air) (09/03 1230) BP: (96-139)/(44-89) Temp: [36.6 C (97.9 F)-37 [...] on hemodialysis Sunday but missed Sunday dialysis. [place] is right AV fistula. His dry weight [...] maintain these precautions. NAHOMY COLLIER MD Pager [phone] Subjective Liz Hendricks is a 76 y.o. [...] Signs: 24 Hour Range BP: 141/65 (09/03 1430) Temp: 36.5 C (97.7 F) (04/09 1430) Pulse: 74 (04/09 1430) Respirations: 20 PER MINUTE (09/03 1429) SpO2: 95 % (09/03 1813) O2 Delivery: None (Room Air) (09/03 1429) BP: (96-141)/(44-89) Temp: [36.5 C (97.7 F)-37 C (98.6 F)] Pulse: [71-90] Respirations: [16 PER MINUTE-24 PER MINUTE] SpO2: [90 %-98 %] O2 Delivery: None (Room Air) Intake/Output Summary (Last 24 hours) at 09/03/17 1937 Last data filed at 09/03/17 143 Gross per 24 hour Intake 1300 ml [...] a release of confidential information request to [facility] in [place], [place]. Fax number . All records were requested, including pathology slides. [...] on hemodialysis Sunday but missed Sunday dialysis. [place] is right AV fistula. His dry weight [...] maintain these precautions. NAHOMY COLLIER MD Pager [phone] Subjective Liz Hendricks is a 76 y.o. [...] Signs: 24 Hour Range BP: 121/48 (09/02 1434) Temp: 36.6 C (97.9 F) (09/02 1434) Pulse: 84 (09/02 1434) Respirations: 18 PER MINUTE (09/02 1434) SpO2: 93 % (09/02 1438) O2 Delivery: [...] Output 1300 ml Net 20 ml Vitals: 04/06/18 2045 04/07/18 2145 Weight: 92.3 kg (203 lb 7.8 [...] SCr of 5.69 mg/dL (H)) . Vitals: 08/31/17204409/01/172144 Weight: 92.3 kg (203 lb 7.8 oz) 91.3 kg (201 lb 4.5 oz) No results for input(s): PHART, PO2ART in the last 72 hours. Invalid input(s): PC02A * Nila Salas, RT - 09/02/2017 7:01 AM CDT [...] of ID, this author called the main [facility] phone number at on 09/01 in an attempt to ask for Tb and JERED PCR testing to be done on the sample from the patient's lung mass. This author was told that the [facility] lab is not open on weekends but will be open again on Sunday. This author left a request for a lab member to call the [facility] Med-2 team back on Sunday. --Pulmonary [...] treatment - Patient planned to establish with [facility] Medical Oncology this week but has been hospitalized Plan: - Consult medical oncology - Consult pulmonology, as above History of end-stage renal disease (secondary to immunosuppression) on Sunday, , Sunday dialysis Nephrology consulted, appreciate recs: Patient to continue his TTS dialysis schedule. Continue sevelamer 800 mg TID with meals for hyperphosphatemia. Check iron studies. Continue MACHINE ENGRAVER phosphate binder Hypertension Continue MACHINE ENGRAVER amlodipine and Cardura History of GERD Continue MACHINE ENGRAVER pantoprazole FEN: Renal dialysis diet PPx: Heparin Code Status: DNAR-FI Disposition: Continue admission to inpatient internal medicine under care of the Med 2 team. Patient seen and discussed with Dr. Kiser. Enoch Tavares M.D. Internal Medicine/Psychiatry PGY-1 Pager: [phone] Subjective Liz Hendricks is a 76 y.o. [...] Kiser MD Department of Internal Medicine, Hospitalist [phone] * Vika Becerra RN - 09/01/2017 4:15 PM CDT Pt [...] of ID, this author called the main [facility] phone number at in an attempt to ask for Tb and JERED PCR testing to be done on the sample from the patient's lung mass. This author was told that the [facility] lab is not open on weekends but will be open again on Sunday. This author left a request for a lab member to call the [facility] Med-2 team back on Sunday. History of orthotopic liver transplant Orthotopic liver transplant in 2012. --He has been immunosuppressed with tacrolimus and everolimus. This has been complicated by biliary stricture requiring stent. He follows with Dr. Regan Borck of our hepatology department here. Plan: We [...] meals for hyperphosphatemia. Check iron studies. Continue MACHINE ENGRAVER phosphate binder Hypertension Continue MACHINE ENGRAVER amlodipine and Cardura History of GERD Continue MACHINE ENGRAVER pantoprazole FEN: Renal dialysis diet PPx: Heparin Code Status: DNAR-FI Disposition: Continue admission to inpatient internal medicine under care of the Med 2 team. Patient seen and discussed with Dr. Kiser. Enoch Tavares M.D. Internal Medicine/Psychiatry PGY-1 Pager: [phone] Subjective Liz Hendricks is a 76 y.o. [...] Kiser MD Department of Internal Medicine, Hospitalist [phone] * Isaac Oates RT - 08/31/2017 11:40 PM CDT Formatting [...] *Higher points indicate higher acuity. Therapist: Isaac Oates RT Date: 08/31/2017 Yeh AC=Airway clearance AM=Aerosolized medication BA=[place] aerosol DB&C=Deep breathe & cough FEV1=Forced expiratory volume in first second) IC=Inspiratory capacity LE=Lung expansion MDI=Metered dose inhaler Neb=Nebulizer O2=Oxygen Oxim=Oximetry PEFR=Peak expiratory flow rate SET UP / OPERATOR=Rapid Response Team * Lev Geller, KIERSTEN - 08/31/2017 6:39 PM CDT Peripheral blood [...] E/M visit, discussed case with Dr. Irvin, [facility] fellow and concur with our fellow's documentation [...] mL iso-osmotic IVPB 2.25 g Intravenous Q8H* [JUL Hold] sevelamer carbonate (RENVELA) tablet 800 mg 800 [...] 1041) O2 Delivery: Nasal Cannula (09/06 1041) BP: [...] Relevant labs reviewed Ebenezer Irvin MD Pager [phone] * Kris Escobar, ALICIA-MANAGER ADMINISTRATIVE - 09/04/2017 3:06 PM CDT Formatting of [...] C (98.9 F) (09/04 115) Pulse: 85 (09/05 1155) Respirations: 20 PER MINUTE (09/04 115) SpO2: 94 % (09/05 1155) O2 Delivery: [...] Range PH-ART-POC 7.51 (H) 7.35 - 7.45 KYR6-YKR-KQL 38 35 - 45 MMHG PO2-ART-POC 55 (L) 80 - 100 MMHG Base Ex-ART-POC 8.0 MMOL/L O2 Sat-ART-POC 91.0 (L) 95 - 99 % Qahggnlbshd-ZJF-CDO 30.7 (H) 21 - 28 MMOL/L POC [...] previous H&P performed on 09/03/17. Kris Escobar APRN-MANAGER ADMINISTRATIVE Pager [phone] * Herve Chan MD - 08/31/2017 5:44 [...] upon arrival Nephrology consult in AM Continue MACHINE ENGRAVER phosphate binder Hypertension Continue MACHINE ENGRAVER amlodipine and Cardura History of GERD Continue MACHINE ENGRAVER pantoprazole FEN: Regular diet PPx: Heparin Code Status: DNAR-FI Disposition: Admit to inpatient internal medicine under care of the med 2 team. Patient seen and discussed with attending administration physician, Dr. Mendoza This note was composed with assistance of [employer] Dictation software. There may be dictation errors. [...] He had been planned to follow-up at [facility] oncology as an outpatient. The patient was discharged to a half-way facility at that time. He continues to [...] then removed HX JOINT REPLACEMENT Right 02/03/15 AL ARVEN ANAST OPN UPR ARM BASILIC VEIN TRPOS Right 12/21/2015 CREATION RADIOCEPHALIC ARTERIOVENOUS FISTULA performed by Fortino Hamm MD at [facility] OR/Periop AL ADJT TIS TRNS/REARGMT F/C/C/M/N/A/G/H/F 10SQCM/< Right 04/07/2016 [...] Vital Signs: 24 Hour Range BP: 127/69 (04/06 1556) Temp: 36.5 C (97.7 F) (09/01 1555) Pulse: 75 (09/01 1555) Respirations: 12 PER MINUTE (09/01 1555) SpO2: 93 % (09/01 1555) O2 Delivery: Nasal Cannula (09/01 1555) BP: [...] past 24 hour(s)). Herve Chan MD Pager [phone] Associated attestation - Alia Mendoza MD - [...] DATE 07 - Initiated HD treatment in [facility] 1. Ordered is a 4 [...] Order(s): HEMODIALYSIS INPATIENT; HEMODIALYSIS DATE; HEMODIALYSIS DATE 0645 Pt arrived in HD bay 8 [...] VS taken. 1140 Transportation returned Pt to [place] [address] via bed with portable O2 set @ 4L/ NC. Net UF is 2.0L 1145 Report called to KIERSTEN Sheldon. * Savita Brumfield RN - 09/10/2017 10:23 AM CDT Associated Order(s): HEMODIALYSIS INPATIENT; HEMODIALYSIS DATE 08 Report received from primary KIERSTEN Moscoso. 0930 [...] paper tape. 1415 Report called to primary RN Blanka. * Ebenezer Hansen RN - 09/07/2017 3:10 [...] hemostasis achieved. 182 Report given to KIERSTEN Rojas. * Sarahi Yañez RN - 09/05/2017 12:41 PM CDT Associated Order(s): HEMODIALYSIS INPATIENT; HEMODIALYSIS DATE 08 - HD treatment completed in [place] [address]. Net UF 2 Liters. PTT drawn and adjusted per protocol and KIERSTEN Mosqueda on unit 62 confirmed bolus and dosage change amounts. Hemostasis achieved within 10 minutes and patient traveling to [facility] before returned to room. Report to [...] uncovered and in view. Dr. Collier at [facility] bedside shortly after treatment start. No new orders. 1418 [place] END. Net UF 1.0L. [place] pulled one at at time, hemostasis achieved [...] 15 g fistula needles at first attempt. @0 Dialysis initiated, using 4K bath, UF goal [...] Oral Intake: Marginally Adequate Estimated Calorie Needs: 0645-7448 kcal (25-28 kcal/kg desired wt) Estimated Protein Needs: 116 g (1.3 g/kg desired wt) Oral Diet Order: Renal-Dialysis Patient ICD-10 code E43: Chronic illness/Severe malnutrition Energy intake: 75% or less of estimated energy requirement for 1 month or more, Weight loss: > 7.5% x 3 months Loss of Subcutaneous Fat: No Muscle Wasting: Yes Mild Clavicle, [place] Edema: No Malnutrition Interventions: monitor PO intake [...] accepted for admission 08/31. Pt resided in half-way facility [facility]. Pt was in good spirits playing cards [...] PO intake adequacy monitor wt trends, GI jyoti, meds, labs paged team about libralizing diet [...] then removed HX JOINT REPLACEMENT Right 02/03/15 AL ARVEN ANAST OPN UPR ARM BASILIC VEIN TRPOS Right 12/21/2015 CREATION RADIOCEPHALIC ARTERIOVENOUS FISTULA performed by Fortino Hamm MD at [facility] OR/Periop AL ADJT TIS TRNS/REARGMT F/C/C/M/N/A/G/H/F 10SQCM/< Right 04/07/2016 [...] no rash or jaundice LABS: Recent Labs 08/31/17182909/01/17 0800 09/02/17 0551 NA 134* 135* 136* [...] pleural effusions. 4. Coronary artery disease. Shantel Wolfe, Pulmonary/Critical Care Pager # [phone] 09/03/2017 * Samantha Juarez APRN - 09/03/2017 7:34 AM CDT Associated [...] RUL pneumonia - 07/24/17-07/31/17 patient admitted to [facility] for persistent pneumonia. - 08/10/17-08/20/17 admitted at [facility] for increasing weakness and fatigue. - 08/11/17 [...] up with Dr. Ventura following hospitalization at [facility] Thank you for this consult. Please page [...] no hemoptysis. He has been living in nursing home facility for past several months, but no known exposure to TB. He was scheduled to establish care with Dr. Ventura at [facility] today. Oncology consulted regarding ongoing plan of [...] then removed HX JOINT REPLACEMENT Right 02/03/15 AL ARVEN ANAST OPN UPR ARM BASILIC VEIN TRPOS Right 12/21/2015 CREATION RADIOCEPHALIC ARTERIOVENOUS FISTULA performed by Fortino Hamm MD at [facility] OR/Periop AL ADJT TIS TRNS/REARGMT F/C/C/M/N/A/G/H/F 10SQCM/< Right 04/07/2016 [...] past 24 hour(s)). Pertinent radiology reviewed. Samantha Juarez APRN [phone] Associated attestation - Richard Posadas MD - 09/03/2017 4:41 PM CDT I have reviewed subjective and objective findings with the nurse practitioner and I have personally interviewed and examined the patient. The MANAGER ADMINISTRATIVE's assessment and plan correspond to my own [...] on hemodialysis Sunday but missed Sunday dialysis. [place] is right AV fistula. His dry weight [...] discussed with Dr. Margi COLLIER MD Pager [phone] History Reason for Consult: ESRD HPI: Liz [...] then removed HX JOINT REPLACEMENT Right 02/03/15 AL ARVEN ANAST OPN UPR ARM BASILIC VEIN TRPOS Right 12/21/2015 CREATION RADIOCEPHALIC ARTERIOVENOUS FISTULA performed by Fortino Hamm MD at [facility] OR/Periop AL ADJT TIS TRNS/REARGMT F/C/C/M/N/A/G/H/F 10SQCM/< Right 04/07/2016 [...] mg-3 mg(2.5 mg base)/3 mL nebulizer solution 08/31/2017 MAR from outside facility Yes Yes Sig: [...] 1233) Temp: 37.1 C (98.8 F) (09/01 123) Pulse: 75 (09/01 1233) Respirations: 19 PER MINUTE (09/01 123) SpO2: 91 % (09/01 1233) O2 Delivery: [...] -- PO4 6.6* -- Recent Labs 08/31/17 18308/31/17 1907 09/01/17 0800 WBC 5.7 -- 4.9 [...] profile prior to considering treatment. -Would call [facility] lab and ask for TB and JERED PCR testing to be done on the sample from his lung mass. -Watch for antimicrobial toxicities -Will follow Thank you for the consultation. Conner yLnn MD Marine Equipment Sales Engineer Division of Infectious Diseases I will round on Sunday. For any questions over the weekend please page the ID fellow administration physician at [phone] History of Present Illness This is a [...] had been a plan for follow-up at [facility] oncology. He has been residing at a half-way facility. 1 of the biopsy of mass [...] then removed HX JOINT REPLACEMENT Right 02/03/15 AL ARVEN ANAST OPN UPR ARM BASILIC VEIN TRPOS Right 12/21/2015 CREATION RADIOCEPHALIC ARTERIOVENOUS FISTULA performed by Fortino Hamm MD at [facility] OR/Periop AL ADJT TIS TRNS/REARGMT F/C/C/M/N/A/G/H/F 10SQCM/< Right 04/07/2016 [...] fistula Lab Review Hematology Recent Labs 08/31/17 1830 08/31/17 1907 09/01/17 [...] yet. Plan was to follow up after [facility], then transferred here 08/31. 6. Possible mycobacterial [...] morning before medications are given. Tomorrow give MACHINE ENGRAVER doses, then we will change according to [...] Munguia MD Gastroenterology and hepatology fellow Pager: [phone] History of Present Illness: Liz Hendricks is [...] then removed HX JOINT REPLACEMENT Right 02/03/15 AL ARVEN ANAST OPN UPR ARM BASILIC VEIN TRPOS Right 12/21/2015 CREATION RADIOCEPHALIC ARTERIOVENOUS FISTULA performed by Fortino Hamm MD at [facility] OR/Periop AL ADJT TIS TRNS/REARGMT F/C/C/M/N/A/G/H/F 10SQCM/< Right 04/07/2016 [...] LOS: 14 days Todays Date: 09/14/2017 Plan [facility] notified Monet with [facility] of patient discharge ([phone]) (fax: [phone]) Faxed dialysis flowsheet and AVS to [facility] Interventions ? Support Support: Pt/Family Updates re:POC or DC Plan, Patient Education ? Info or Referral ? Discharge Planning Discharge Planning: [facility] Facility ? Medication Needs ? Financial ? [...] the patient. Ciera Hernandez RN, BSN Nurse Cell Coverer Pager: [phone] * Case Mgmt DC Plan - Arleen Araiza - 09/14/2017 11:58 AM CDT Formatting of this note may be different from the original. Case Management Progress Note NAME:Liz Hendricks :1940 AGE: 76 y.o. ADMISSION DATE: 08/31/2017 DAYS ADMITTED: LOS: 14 days Todays Date: 09/14/2017 Plan Discharge to [facility] in [place], [place] today at 2pm via [facility] ambulance Interventions Pt still stable for d/c today. Spoke with Warren at [facility] and they can accept pt today, they now have CPAP for pt. STEFFANIE arranged ambulance transport through [facility] for 2pm and notified team, family, and nurse. STEFFANIE faxed orders to facility. ? Support Support: Pt/Family Updates re:POC or DC Plan, Patient Education ? Info or Referral ? Discharge Planning Discharge Planning: [facility] Facility ? Medication Needs ? Financial ? [...] discharges only) ? Discharge Disposition Arleen Araiza [facility] *3548 Durable Medical Equipment No service has [...] Liz Hendricks 09/13/2017 Admit Date:08/31/2017 Discharge Dates: 09/13/17 Discharge Disposition: DC Via [facility] Rounding Physician: Dr Essence Jefferson Brief narrative regarding inpatient admission: Liz Hendricksis a 76 y.o.male with a past medical [...] @ 1020 Appointment Provider: Dr Regan Brock Monotype Setter Follow up: Labs, EGD/Colon Labs: Tacro/Everolymus trough to be collected by facility on 09/17/17. This service will fax order to Facility. Endoscopy Appointment : Patient scheduled with Dr Hernandez [phone] on for EGD/Colon. Due to patients recent [...] RN-BSN Inpatient Hepatology Nurse Coordinator Pgr: [phone] [phone]- [phone] * Case Mgmt DC Plan - Jennifer [...] are in the wall unit. Steffanie contacted Araceli and faxed additional documents to process pt home Cpap. Interventions ? Support Support: Pt/Family Updates re:POC or DC Plan, Patient Education ? Info or Referral ? Discharge Planning Discharge Planning: [facility] Facility Covering Steffanie coordinating discharge to Via [facility]. Steffanie received call from carissa Villalpando, pager [phone]. Pt needs a Cpap that will auto titrate. Steffanie contacted [facility] at [phone]. Pt current Cpap does not have the auto titrate ability. A new prescription will need to be faxed to [facility] at . Steffanie paged Carissa Villalpando, to obtain script to fax to [facility]. Steffanie contacted Warren at [facility] to confirm if they could order a Cpap with auto titrate for pt to use at the facility until his new Cpap is delivered. Warren will confirm with their DME supplier and contact steffanie. Warren at [facility] called Steffanie. He will be able to get a Cpap delivered to their facility today as long as they received the order for the auto titrate Cpap. Steffanie faxed [facility] Cpap orders. Steffanie discussed pt in huddle. It SNF can get the Cpap today, pt can discharge. Steffanie confirmed the above with Warren in admissions. Steffanie arranged a 1:30pm [facility] ambulance transport and completed PCS. Steffanie notified [...] has been selected for the patient. Jennifer Varela ENGINEERING CLERK *[id number] * Care Plan - Dawson Ilda - 09/13/2017 2:29 AM CDT Problem: Infection, [...] aseptic technique used. * Patient Education - Ilda Uribe - 09/13/2017 12:30 AM CDT Medication Education [...] up should occur daily. Continue to address: yojana URIBE * Care Plan - Monalisa Davey [...] stable to discharge today. Anticipate discharge to [facility] SNF tomorrow. Interventions ? Support Support: Pt/Family Updates re:POC or DC Plan, Patient Education ? Info or Referral ? Discharge Planning Discharge Planning: [facility] Facility Covering Steffanie confirmed with Warren at [facility] that transportation is still arranged for 1pm. Steffanie paged team to confirm pt discharge plan. Sw participated in huddle. Pt will not discharge today. Pt needs at Bipap, not a Cpap. Steffanie contacted Warren in admissions at [facility], , and notified him pt is not ready for discharge, potentially tomorrow. Steffanie informed Warren that pt needs a Bipap. Warren will look into ordering a Bipap for pt. Steffanie faxed updates to [phone]. Steffanie notified pt spouse. Primary Sw will continue to follow for discharge planning. Addendum: [facility] is not able to provide discharge transportation /Sunday. Steffanie spoke with team. Pt will need ambulance transportation due to distance and oxygen needs. Steffanie informed family and Warren at [facility] [phone]. ? Medication Needs ? Financial ? Legal [...] has been selected for the patient. Jennifer Varela [facility] *[id number] * Care Plan - Ilda Uribe [...] and a walker * Patient Education - Ilda Uribe - 09/11/2017 8:49 PM CDT Medication Education [...] Todays Date: 09/11/2017 Plan Discharge back to [facility] tomorrow at 1pm via facility transport Interventions Notified pt ready for d/c tomorrow. Called Warren in admissions at [facility], , and notified him pt ready for d/c tomorrow. Faxed updates to [phone]. Warren set up facility transport for 1pm [...] only) ? Discharge Disposition Arleen Araiza LmSW *2521 Durable Medical Equipment No service has been [...] been between 90-96% * Patient Education - Dilcia Uribendria - 09/10/2017 10:58 PM CDT Medication Education [...] as needed. Continue to address: indications Ilda SAMMISHYANN * Patient Education - Blanka Uriarte - [...] Goal Ongoing Handwashing procedures followed according to [facility] policy. Goal: Knowledge of Infection Control [...] needed. Continue to address: certain medications Stephanie Besbenjanet * Patient Education - Mariella Morris RN [...] (98 F) (09/07 314) Pulse: 79 (09/07 617) Respirations: 18 PER MINUTE (09/07 617) SpO2: [...] Mgmt DC Plan - Arleen Araiza - 09/06/2017 2:23 PM CDT Case Management Admission Assessment NAME:Liz Hendricks :1940 AGE: 76 y.o. ADMISSION DATE: 08/31/2017 DAYS ADMITTED: LOS: 6 days Todays Date: 09/06/2017 Source of Information: and patient Plan Plan: CM Assessment, Discharge Planning for Facility Anticipated; Pt will discharge back to [facility] when medically stable Patient Address/Phone [address] [facility] [place] [phone] (home) Emergency Contact Extended Emergency Contact Information Primary Emergency Contact: Louise Hendricks Address: [address] [place], [place] [address] [place] [address] Mobile Relation: Spouse Secondary Emergency Contact: EladioObie hernandez Address: [address] [place], [place] [address] [place] [address] Mobile Relation: Son Healthcare Directive; pt's is his primary agent Healthcare Directive: Yes, patient has a healthcare directive Type of Healthcare Directive: Living Will, Healthcare directive, Durable power of county attorney for healthcare Location of Healthcare Directive: Patient [...] Admission ? Living Arrangements Type of Residence: nursing home facility Living Arrangements: Other (Comment) (facility and [...] Primary Insurance: Medicare Secondary Insurance: Commercial insurance ([facility]) ? Source of Income Source Of Income: Other senior living income ? Financial Assistance Needed? No Psychosocial Needs ? Mental Health Mental Health History: No ? Substance Use History Substance Use History Screen: No ? Other NA Current/Previous Services ? PCP Faizan Lin, , ? Pharmacy [facility] #[id number] [facility] [address] [address] [address] [facility] [address] ? Durable Medical Equipment Durable Medical Equipment at home: Toilet riser, Shower Chair, Single Point Cane , Roller Walker (bars around toilet; this is all DME he has at home) ? Home Health Receiving home health: In the past Agency name: [facility]paricio[facility] Would patient use this agency again?: Yes ? Hemodialysis or Peritoneal Dialysis Undergoing hemodialysis or peritoneal dialysis: Yes Hemodialysis or Peritoneal Dialysis: Hemodialysis ? Tube/Enteral Feeds Receive tube/enteral feeds: No ? Infusion Receive infusions: No ? Private Duty Private duty help used: No ? Home and Community Based Services Home and community based services: No ? Regan White Regan White: No ? Hospice Hospice: No ? Outpatient Therapy PT: No OT: No HOME ECONOMICS TEACHER: No ? Chcf Facility/Mcfp SNF: Yes When did patient receive care?: current Name of Facility: [facility] Would patient return for future services?: Yes NH: No ? Inpatient Rehab IPR: In the past Name of Facility: [facility] Would patient return for future services?: Yes ? Long-Term Acute Care Hospital LTACH: No ? Acute Hospital Stay Acute Hospital Stay: Yes Was patient's stay within the last 30 days?: No Arleen Araiza, [facility] *[id number] * Patient Education - Kylee Brock - [...] Post-Procedure Condition: unchanged Guille Chatterjee MD Pager [phone] * Patient Education - Kaylynn Ortiz RN [...] with primary RN, no further concerns for SET UP / OPERATOR at this time. * Response Teams - Leena Monet RN - 09/04/2017 6:17 AM CDT Rapid Response Team Progress Note Date: 09/04/2017 Time: 6:17 AM Patient: Liz Hendricks Attending: Ari Wilson MD Service: Med 2042 Admission Date: 08/31/2017 LOS: 4 days A Code/Rapid Response Timeline Event Report has been created for this patient on 09/04/17 at 0523. SET UP / OPERATOR called for increased oxygen demand, patient was on 2.5L NC and now up to 10L high flow NC. Labs, chest xray, ECG, ABG ordered and completed. VSS. Patient awake, alert, comfortable, no complaints. Dr. Pennington at bedside, wants to keep patient on floor and have SET UP / OPERATOR follow up Per protocol. If patient increases oxygen demand, please call SET UP / OPERATOR. Leena Monet RN * Patient Education - [...] 09/02/2017 3:15 AM CDT Medication Education Liz Eladio accepted counseling and was receptive. he verbalized [...] who has been living in SNF in [facility] recently and was admitted locally there for [...] isolation. Patient location at time of transfer request:[facility] Time/Date of Request: 0930h Bed Type:isolation neg pressure ETA:unk *please [...] me with any questions. Russel Yeager MD [phone] in this encounter Plan of Treatment Name [...] HEMODIALYSIS INPATIENT (09/14/2017 8:42 AM) Narrative Sarahi Yañez RN 09/14/2017 11:36 AM 07 - Initiated HD treatment in [facility] 1.Ordered is a 4 hour [...] well. * HEMODIALYSIS DATE (09/14/2017 8:42 AM) Narrative Sarahi Yañez RN 09/14/2017 11:36 AM 07 - Initiated HD treatment in [facility] 1.Ordered is a 4 hour [...] - 5.1 MMOL/L Specimen Performing Laboratory Blood [facility] [address] [place] [address] * EVEROLIMUS BLOOD (09/14/2017 5:51 AM) Component Value Ref Range Everolimus 3.6 3 - 10 ng/mL Comment: Target concentrations vary by type of transplant, patient response, concomitant immunosuppression and post-transplant time interval.Test was performed on whole blood using Signifyd QMS reagent and a Corby Rianna AU analyzer. Specimen Performing Laboratory MAIN LAB [address] [place] [address] * TACROLIMUS LEVEL(FK506) (09/14/2017 5:51 AM) Component Value Ref Range Tacrolimus 2.1 2 - 15 NG/ML Comment: Target concentrations vary by type of transplant, patient response, concomitant immunosuppression and post-transplant time interval.Test was performed on whole blood using Signifyd QMS reagent and a Corby Rianna AU analyzer. Specimen Performing Laboratory Blood MAIN LAB [address] [place] [address] * PROTIME INR (PT) (09/14/2017 5:49 AM) Component Value Ref Range INR 1.6 (H) 0.8 - 1.2 Specimen Performing Laboratory Blood [facility] [address] [place] [address] * EVEROLIMUS BLOOD (09/13/2017 8:25 AM) Component Value Ref Range Everolimus 3.4 3 - 10 ng/mL Comment: Target concentrations vary by type of transplant, patient response, concomitant immunosuppression and post-transplant time interval.Test was performed on whole blood using Thermo Axis Three QMS reagent and a Corby Rianna AU analyzer. Specimen Performing Laboratory MAIN LAB [address] [place] [address] * TACROLIMUS LEVEL(FK506) (09/13/2017 8:25 AM) Component Value Ref Range Tacrolimus 1.6 (L) 2 - 15 NG/ML Comment: Target concentrations vary by type of transplant, patient response, concomitant immunosuppression and post-transplant time interval.Test was performed on whole blood using MymCartS reagent and a [employer] AU analyzer. Specimen Performing Laboratory Blood [facility] [address] [place] [address] * PROTIME INR (PT) (09/13/2017 4:26 AM) Component Value Ref Range INR 1.7 (H) 0.8 - 1.2 Specimen Performing Laboratory Blood [facility] [address] [place] [address] * CHEST SINGLE VIEW (09/12/2017 12:52 PM) [...] interval.Test was performed on whole blood using Signifyd QMS reagent and a Corby Rianna AU analyzer. Specimen Performing Laboratory MAIN LAB [address] [place] [address] * EVEROLIMUS BLOOD (09/12/2017 12:10 PM) Component Value Ref Range Everolimus <2.0 (L) 3 - 10 ng/mL Comment: Target concentrations vary by type of transplant, patient response, concomitant immunosuppression and post-transplant time interval.Test was performed on whole blood using Signifyd QMS reagent and a Corby Coyote AU analyzer. Specimen Performing Laboratory MAIN LAB [address] [place] [address] * HEMODIALYSIS INPATIENT (09/12/2017 7:56 AM) Bernadette [...] VS taken. 1140 Transportation returned Pt to [place] [address] via bed with portable O2 set @ [...] VS taken. 1140 Transportation returned Pt to 6213 via bed with portable O2 set [...] VS taken. 1140 Transportation returned Pt to 6213 via bed with portable O2 set [...] [place] Specimen Performing Laboratory Blood MAIN LAB [address] [place] [address] * BASIC METABOLIC PANEL (09/12/2017 3:55 AM) [...] for questions. Specimen Performing Laboratory MAIN LAB [address] [place] [address] * PROTIME INR (PT) (09/12/2017 3:55 AM) Component Value Ref Range INR 1.7 (H) 0.8 - 1.2 Specimen Performing Laboratory Blood MAIN LAB [address] [place] [address] * PHOSPHORUS (09/12/2017 3:55 AM) Component Value Ref Range Phosphorus 7.6 (H) 2.0 - 4.0 MG/DL Specimen Performing Laboratory Blood MAIN LAB [address] [place] [address] * EVEROLIMUS BLOOD (09/11/2017 10:00 AM) Component Value Ref Range Everolimus 3.6 3 - 10 ng/mL Comment: Target concentrations vary by type of transplant, patient response, concomitant immunosuppression and post-transplant time interval.Test was performed on whole blood using Signifyd QMS reagent and a Corby Coy[employer] AU analyzer. Specimen Performing Laboratory MAIN LAB [address] [place] [address] * TACROLIMUS LEVEL(FK506) (09/11/2017 10:00 AM) Component Value Ref Range Tacrolimus 1.7 (L) 2 - 15 NG/ML Comment: Target concentrations vary by type of transplant, patient response, concomitant immunosuppression and post-transplant time interval.Test was performed on whole blood using Signifyd QMS reagent and a Corby Coyote AU analyzer. Specimen Performing Laboratory Blood MAIN LAB [address] [place] [address] * 25-OH VITAMIN D (D2 + D3) (09/11/2017 10:00 AM) Component Value Ref Range Vitamin D(25-OH)Total 34.0 30 - 80 NG/ML Specimen Performing Laboratory Blood MAIN LAB [address] [place] [address] * NM PET SCAN TORSO (SKULL-THIGHS) (09/11/2017 [...] Performing Laboratory Blood [facility] [address] [place] [address] * CBC (09/11/2017 3:50 AM) Component Value [...] [place] Specimen Performing Laboratory Blood MAIN LAB [address] [place] [address] * PROTIME INR (PT) (09/11/2017 3:50 AM) Component Value Ref Range INR 1.8 (H) 0.8 - 1.2 Specimen Performing Laboratory Blood MAIN LAB [address] [place] [address] * PARATHYROID HORMONE (09/11/2017 3:50 AM) Component Value Ref Range PTH Hormone 190.3 (H) 10 - 65 PG/ML Specimen Performing Laboratory Blood MAIN LAB [address] [place] [address] * IONIZED CALCIUM (09/11/2017 3:50 AM) Component Value Ref Range Ionized Calcium 1.33 (H) 1.0 - 1.3 MMOL/L Specimen Performing Laboratory Blood MAIN LAB [address] [place] [address] * HEMODIALYSIS INPATIENT (09/10/2017 10:23 AM) Narrative Savita Brumfield RN 09/10/20172:16 PM 0830 Report received from [...] Moscoso. * HEMODIALYSIS DATE (09/10/2017 10:23 AM) Narrative Savita Brumfield RN 09/10/20172:16 PM 0830 Report received from [...] paper tape. 1415 Report called to primary RN Blanka. * COMPREHENSIVE METABOLIC PANEL (09/10/2017 4:20 AM) [...] Performing Laboratory Blood [facility] [address] [place] [address] * CBC (09/10/2017 4:20 AM) Component Value [...] Specimen Performing Laboratory Blood MAIN LAB [address] [place] [address] * PROTIME INR (PT) (09/10/2017 4:20 AM) Component Value Ref Range INR 1.5 (H) 0.8 - 1.2 Specimen Performing Laboratory Blood MAIN LAB [address] [place] [address] * COMPREHENSIVE METABOLIC PANEL (09/09/2017 3:01 AM) [...] Specimen Performing Laboratory Blood MAIN LAB [address] [place] [address] * CBC (09/09/2017 3:01 AM) Component Value [...] Specimen Performing Laboratory Blood MAIN LAB [address] [place] [address] * PROTIME INR (PT) (09/09/2017 3:01 AM) Component Value Ref Range INR 1.3 (H) 0.8 - 1.2 Specimen Performing Laboratory Blood MAIN LAB [address] [place] [address] * TRANSFUSE RBC'S NON-BLEEDING PT (09/08/2017 1:05 PM) Specimen Performing Laboratory Blood * TRANSFUSE RBC'S NON-BLEEDING PT (09/08/2017 1:05 PM) Specimen Performing Laboratory Blood * HAPTOGLOBIN (09/08/2017 8:35 AM) Component Value Ref Range Haptoglobin 358 (H) 16 - 200 MG/DL Specimen Performing Laboratory Blood MAIN LAB [address] [place] [address] * LDH-LACTATE DEHYDROGENASE (09/08/2017 3:20 AM) Component Value Ref Range Lactate Dehydrogenase 169 100 - 210 U/L Specimen Performing Laboratory MAIN LAB [address] [place] [address] * COMPREHENSIVE METABOLIC PANEL (09/08/2017 3:20 AM) [...] Specimen Performing Laboratory Blood MAIN LAB [address] [place] [address] * CBC (09/08/2017 3:20 AM) Component Value [...] Specimen Performing Laboratory Blood MAIN LAB [address] [place] [address] * PROTIME INR (PT) (09/08/2017 3:20 AM) Component Value Ref Range INR 1.2 0.8 - 1.2 Specimen Performing Laboratory Blood MAIN LAB [address] [place] [address] * HEMODIALYSIS INPATIENT (09/07/2017 3:10 PM) Ebenezer [...] double concentration heparin per Dr. Alvarado' request. 1808 Dialysis finished, blood returned, fistula flushed, decccanulated. Pressure held until hemostasis achieved. 1828 Report given to KIERSTEN Rojas. * PTT (APTT) (09/07/2017 12:53 PM) Component Value Ref Range APTT 74.6 (H) 21.0 - 39.0 SEC Specimen Performing Laboratory Blood MAIN LAB [address] [place] [address] * CBC (09/07/2017 5:55 AM) Component Value [...] [place] Specimen Performing Laboratory MAIN LAB [address] [place] [address] * COMPREHENSIVE METABOLIC PANEL (09/07/2017 5:55 AM) [...] questions. Specimen Performing Laboratory [facility] [address] [place] [address] * PTT (APTT) (09/07/2017 5:55 AM) Component Value Ref Range APTT 52.4 (H) 21.0 - 39.0 SEC Specimen Performing Laboratory Blood [facility] [address] [place] [address] * PROTIME INR (PT) (09/07/2017 5:55 AM) Component Value Ref Range INR 1.1 0.8 - 1.2 Specimen Performing Laboratory Blood [facility] [address] [place] [address] * ECG-SCAN (09/06/2017 10:55 PM) Narrative Ordered by an unspecified provider. * PTT (APTT) (09/06/2017 10:52 PM) Component Value Ref Range APTT 53.2 (H) 21.0 - 39.0 SEC Specimen Performing Laboratory Blood [facility] [address] [place] [address] * PTT (APTT) (09/06/2017 4:39 PM) Component Value Ref Range APTT 27.5 21.0 - 39.0 SEC Specimen Performing Laboratory Blood [facility] [address] [place] [address] * GRAM STAIN (09/06/2017 2:30 PM) Component Value Ref Range Battery Name GRAM STAIN Specimen Description BRONCHIAL ALVEOLAR LAVAGE, RLL Special Requests NONE Gram Stain FEW NEUTROPHILS FEW COLUMNAR EPITHELIAL CELLS NO ORGANISMS SEEN Report Status FINAL 09/07/2017 Specimen Performing Laboratory Bronchial Alveolar [facility] MAIN [facility] Lavage,RLL [address] [place] [address] * CELL COUNT W/DIFF-FLUIDS (09/06/2017 2:30 PM) [...] report. Specimen Performing Laboratory Fluid - Bronchial MAIN LAB Alveolar Lavage [address] [place] [address] * RVP VIRAL PANEL PCR (09/06/2017 2:30 [...] Performing Laboratory Nasal Wash MAIN LAB [address] [place] [address] * PJP JIROVECI QUANT PCR (09/06/2017 2:30 [...] developed and its performance characteristics determined by [facility]. It has not been cleared or approved by the U.S. Food and Drug Administration.-Results should be used in conjunction with clinical findings, and should not form the sole basis for a diagnosis or treatment decision.- PCR tests are performed pursuant to a license agreement with [employer]. Testing Performed At: [facility] [address] [place], [place] [id number] CLIA ID: [id number] Specimen Performing Laboratory Bronchial Washing RLL REFERENCE [...] Aspergillus Galactomannan EIA is a product of [employer] and is FDA approved for in vitro diagnostic use. Testing Performed At: [email or web address] [address] [place] [address] [employer] [place], [place] [id number] CLIA ID: [id number] Specimen Performing Laboratory Bronchial Washing RLL REFERENCE LAB * HERPES SIMPLEX PCR - NON-BLOOD (09/06/2017 2:30 PM) Component Value Ref Range Specimen, Herpes BRONCHIAL ALVEOLAR LAVAGE Herpes Simplex PCR HSV 1 and 2 NOT DETECTED [facility] HSV 1&2 Assay is a qualitative real-time PCR test for the direct detection and differentiation of HSV 1 and 2 DNA. This assay is FDA approved for testing cutaneous or mucocutaneous lesions from symptomatic patients. Performance on modifications of this test as well as other specimen types has been validated by the Department of Pathology and Laboratory Medicine at the [facility]. Specimen Performing Laboratory Bronchial Alveolar Lavage [facility] [address] [place] [address] * CMV QUANT PCR-FLUID (09/06/2017 2:30 PM) Component Value Ref Range Specimen, CMV BRONCHIAL ALVEOLAR LAVAGE CMV by PCR-fluid CMV DNA NOT DETECTED CMV Comment-Fluid This assay is an off label use of the Wiley RealTime Assay for detection of CMV in fluids and has not been approved by the US Food and Drug Administration. The performance characteristics were determined by the [facility] Laboratory.The lower limit of detection is 50IU/mL. Specimen Performing Laboratory Fluid - Bronchial [facility] MAIN [facility] Alveolar Lavage [address] [place] [address] * CULTURE-RESP,LOWER W/SENSITIVITY (09/06/2017 2:30 PM) Component Value Ref Range Battery Name LOWER RESP CULTURE Specimen Description BRONCHIAL ALVEOLAR LAVAGE, RLL Special Requests NONE Direct Gram Stain FEW NEUTROPHILS FEW COLUMNAR EPITHELIAL CELLS NO ORGANISMS SEEN Culture Light growth NO SIGNIFICANT TIAN Report Status FINAL 09/08/2017 Specimen Performing Laboratory Bronchial Alveolar [facility] Lavage,RLL [address] [place] [address] * NON-SPA CONSULTANT CYTOLOGY (BODY FLUIDS/TISSUE) (09/06/2017 10:40 AM) Component Value Ref Range Cytology [facility] [email or web address] Department of Pathology and Laboratory Medicine [address] [place] [address] Surgical Pathology Office:[phone]:[phone] CYTOLOGY REPORT NAME: LIZ HENDRICKS CYTOLOGY #: [id number] MR #: [id number] ALT ID #: [id number] #: [id number] LOCATION: 62 DATE OF PROCEDURE: 09/06/2017 AGE:76 SEX: M DATE RECEIVED: 09/07/2017 : 1940TIME RECEIVED:10:40 PHYSICIAN:ANANTH CALVIN MD DATE OF REPORT: 09/11/2017 COPY TO: MARGI KISER OPOLE MASON YEAGER MD DATE OF PRINTIN09/11/2017 Material [...] Please also see concurrent surgical pathology report ([id number]). See comment. 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 Pursuant to the Statistical Geneticist Program at the [facility] Pathology Department, [...] interval.Test was performed on whole blood using MymCartS reagent and a Corby Deep Driver AU analyzer. Specimen Performing Laboratory MAIN LAB [address] [place] [address] * TACROLIMUS LEVEL(FK506) (09/06/2017 8:28 AM) Component Value Ref Range Tacrolimus 2.9 2 - 15 NG/ML Comment: Target concentrations vary by type of transplant, patient response, concomitant immunosuppression and post-transplant time interval.Test was performed on whole blood using Signifyd QMS reagent and a Corby Coyote AU analyzer. Specimen Performing Laboratory Blood [facility]U MAIN LAB [address] [place] [address] * SURGICAL PATHOLOGY (09/06/2017 7:29 AM) Component Value Ref Range PATHOLOGY REPORT [facility] [email or web address] Department of Pathology and Laboratory Medicine [address] [place] [address] Surgical Pathology Office:[phone]:[phone] SURGICAL PATHOLOGY REPORT NAME: LIZ HENDRICKS SURG PATH #: [id number] MR #: [id number] SPECIMEN CLASS: SR BILLING #: [id number] ALT ID #:LOCATION: [id number] DATE OF PROCEDURE: [...] in this report. +++ +++ Laura Navarrete/09/07/2017 ################################################## ###################### Material Received: A: right lower [...] [place] Specimen Performing Laboratory MAIN LAB [address] [place] [address] * BASIC METABOLIC PANEL (09/06/2017 6:05 AM) [...] Specimen Performing Laboratory [facility] MAIN LAB [address] [place] [address] * PROTIME INR (PT) (09/06/2017 6:05 AM) Component Value Ref Range INR 1.1 0.8 - 1.2 Specimen Performing Laboratory Blood MAIN LAB [address] [place] [address] * PTT (APTT) (09/05/2017 3:49 PM) Component Value Ref Range APTT 69.5 (H) 21.0 - 39.0 SEC Specimen Performing Laboratory MAIN LAB [address] [place] [address] * VANCOMYCIN RANDOM (09/05/2017 3:49 PM) Component Value Ref Range Vancomycin Random 11.6 MCG/ML Specimen Performing Laboratory Blood MAIN LAB [address] [place] [address] * TYPE & CROSSMATCH (09/05/2017 3:49 PM) Component Value Ref Range Units Ordered 1 Crossmatch Expires 09/08/2017 Record Check FOUND ABO/RH(D) O NEG Antibody Screen NEG Electronic Crossmatch YES Unit Number [id number] Blood Component Type RBC,CPDA,LEUKO REDUCED Unit Division 0 Status OF Unit TRANSFUSED Transfusion Status OK TO TRANSFUSE Crossmatch Result COMPATIBLE,ELECTRONIC Specimen Performing Laboratory Blood MAIN LAB [address] [place] [address] * PROTIME INR (PT) (09/05/2017 3:49 PM) Component Value Ref Range INR 1.2 0.8 - 1.2 Specimen Performing Laboratory Blood MAIN LAB [address] [place] [address] * CBC AND DIFF (09/05/2017 3:49 PM) [...] Performing Laboratory Blood [facility] MAIN LAB [address] [place] [address] * US DOPPLER VENOUS W EXTRM BILAT [...] PM 08 - HD treatment completed in [place] [address].Net UF 2 Liters.PTT drawn and adjusted per protocol and KIERSTEN Mosqueda on unit 62 confirmed bolus and dosage change amounts.Hemostasis achieved within 10 minutes and patient traveling to [facility] before returned to room.Report to [place] before tx over. * HEMODIALYSIS DATE (09/05/2017 12:41 PM) Sarahi Kay RN 09/05/2017 12:45 PM 08 - HD treatment completed in [place] [address].Net UF 2 Liters.PTT drawn and adjusted per protocol and KIERSTEN Mosqueda on unit 62 confirmed bolus and dosage change amounts.Hemostasis achieved within 10 minutes and patient traveling to [facility] before returned to room.Report to [place] before tx over. * PTT (APTT) (09/05/2017 9:15 AM) Component Value Ref Range APTT 62.4 (H) 21.0 - 39.0 SEC Specimen Performing Laboratory MAIN LAB [address] [place] [address] * PROTIME INR (PT) (09/05/2017 3:00 AM) Component Value Ref Range INR 1.2 0.8 - 1.2 Specimen Performing Laboratory MAIN LAB [address] [place] [address] * CBC AND DIFF (09/05/2017 3:00 AM) [...] K/UL Specimen Performing Laboratory MAIN LAB [address] [place] [address] * COMPREHENSIVE METABOLIC PANEL (09/05/2017 3:00 AM) [...] questions. Specimen Performing Laboratory MAIN LAB [address] [place] [address] * PTT (APTT) (09/05/2017 3:00 AM) Component Value Ref Range APTT 79.9 (H) 21.0 - 39.0 SEC Specimen Performing Laboratory Blood MAIN LAB [address] [place] [address] * PTT (APTT) (09/04/2017 8:30 PM) Component Value Ref Range APTT 28.6 21.0 - 39.0 SEC Specimen Performing Laboratory Blood [facility] MAIN LAB [address] [place] [address] * CTA CHEST WO/W CONTRAST+POST IMPRESSION (09/04/2017 [...] vein CONTRAST: None COMPLICATIONS: None CATHETER: 5 Nepalese double lumen Bard POWER PICC TECHNIQUE:Informed, written [...] needle into the vein and a 5.5 Nepalese peel-away sheath was advanced centrally over wire. [...] to length. The introducer of the 5.5 Nepalese sheath was removed and the tunneled non-cuffed [...] vein CONTRAST: None COMPLICATIONS: None CATHETER: 5 Nepalese double lumen Bard POWER PICC TECHNIQUE: Informed, [...] needle into the vein and a 5.5 Nepalese peel-away sheath was advanced centrally over wire. [...] to length. The introducer of the 5.5 Nepalese sheath was removed and the tunneled non-cuffed [...] tunneled central venous catheter as described above. Enoch Orlando M.D, the attending radiologist, was present for [...] 09/10/2017 Specimen Performing Laboratory Blood MAIN LAB [address] [place] [address] * D-DIMER (09/04/2017 5:35 AM) Component Value [...] 10 ng/mL Specimen Performing Laboratory MAIN LAB [address] [place] [address] * POC GLUCOSE (09/04/2017 5:35 AM) Component Value Ref Range Glucose, POC 109 (H) 70 - 100 MG/DL Specimen Performing Laboratory [facility] LAB [address] [place] [address] * PHOSPHORUS (09/04/2017 5:35 AM) Component Value Ref Range Phosphorus 3.5 2.0 - 4.0 MG/DL Specimen Performing Laboratory Blood [facility] LAB [address] [place] [address] * MAGNESIUM (09/04/2017 5:35 AM) Component Value Ref Range Magnesium 1.9 1.6 - 2.6 mg/dL Specimen Performing Laboratory Blood [facility] LAB [address] [place] [address] * LACTIC ACID (BG - RAPID LACTATE) (09/04/2017 5:35 AM) Component Value Ref Range Lactic Acid,BG 1.2 0.5 - 2.0 MMOL/L Specimen Performing Laboratory Blood MAIN LAB [address] [place] [address] * TROPONIN-I (09/04/2017 5:35 AM) Component Value Ref Range Troponin-I 0.01 0.0 - 0.05 NG/ML Specimen Performing Laboratory Blood MAIN LAB [address] [place] [address] * COMPREHENSIVE METABOLIC PANEL (09/04/2017 5:35 AM) [...] Specimen Performing Laboratory Blood MAIN LAB [address] [place] [address] * PTT (APTT) (09/04/2017 5:35 AM) Component Value Ref Range APTT 28.1 21.0 - 39.0 SEC Specimen Performing Laboratory Blood MAIN LAB [address] [place] [address] * PROTIME INR (PT) (09/04/2017 5:35 AM) Component Value Ref Range INR 1.1 0.8 - 1.2 Specimen Performing Laboratory Blood MAIN LAB [address] [place] [address] * CBC (09/04/2017 5:35 AM) Component Value [...] [place] Specimen Performing Laboratory Blood MAIN LAB [address] [place], [place] [id number] * POC IONIZED CALCIUM (09/04/2017 5:30 AM) Component Value Ref Range Ionized Calcium-POC 1.35 (H) 1.0 - 1.3 MMOL/L Specimen Performing Laboratory [facility] LAB [address] [place], [place] [id number] * POC SODIUM (09/04/2017 5:30 AM) Component Value Ref Range Sodium-POC 137 137 - 147 MMOL/L Specimen Performing Laboratory [facility] LAB [address] [place], [place] [id number] * POC POTASSIUM (09/04/2017 5:30 AM) Component Value Ref Range Potassium-POC 4.3 3.5 - 5.1 MMOL/L Specimen Performing Laboratory [facility] [address] [place], [place] [address] * POC HEMATOCRIT (09/04/2017 5:30 AM) Component Value Ref Range Hemoglobin POC 12.6 (L) 13.5 - 16.5 GM/DL Hematocrit POC 37.0 (L) 40 - 50 % Specimen Performing Laboratory [facility] [address] [place], [place] [id number] * POC BLOOD GAS ARTERIAL (09/04/2017 5:30 AM) Component Value Ref Range PH-ART-POC 7.51 (H) 7.35 - 7.45 NYR6-BVU-ZUF 38 35 - 45 MMHG PO2-ART-POC 55 (L) 80 - 100 MMHG Base Ex-ART-POC 8.0 MMOL/L O2 Sat-ART-POC 91.0 (L) 95 - 99 % Wdulnqskiuf-QQU-UUZ 30.7 (H) 21 - 28 MMOL/L Specimen Performing Laboratory [facility] LAB [address] [place], [place] [id number] * CULTURE-BLOOD W/SENSITIVITY (09/04/2017 5:30 AM) Component Value Ref Range Battery Name BLOOD CULTURE Specimen Description BLOOD LEFT HAND Special Requests NONE Culture NO GROWTH 5 DAYS Report Status FINAL 09/10/2017 Specimen Performing Laboratory Blood [facility] MAIN LAB [address] [place] [address] * HEMODIALYSIS INPATIENT (09/03/2017 11:52 AM) Liz Carl, RN 09/03/20173:15 PM Report received from Primary Care [...] uncovered and in view. Dr. Collier at [facility] bedside shortly after treatment start. No new orders. [id number] END. Net UF 1.0L. [place] pulled one at at time, hemostasis achieved in less than 10 min on each cannulation site. Dressed with band aid and reinforced with gauze and paper tape. Report given to Primary Care RN. * HEMODIALYSIS DATE (09/03/2017 11:52 AM) Liz Carl, KIERSTEN 09/03/20173:15 PM Report received from Primary [...] uncovered and in view. Dr. Collier at [facility] bedside shortly after treatment start. No new orders. [id number] END. Net UF 1.0L. [place] pulled one at at time, hemostasis achieved [...] interval.Test was performed on whole blood using Signifyd QMS reagent and a Corby Rianna AU analyzer. Specimen Performing Laboratory MAIN LAB [address] [place] [address] * EVEROLIMUS BLOOD (09/03/2017 9:45 AM) Component Value Ref Range Everolimus 5.9 3 - 10 ng/mL Comment: Target concentrations vary by type of transplant, patient response, concomitant immunosuppression and post-transplant time interval.Test was performed on whole blood using Signifyd QMS reagent and a Corby Coyote AU analyzer. Specimen Performing Laboratory MAIN LAB [address] [place] [address] * PROTIME INR (PT) (09/03/2017 9:45 AM) Component Value Ref Range INR 1.1 0.8 - 1.2 Specimen Performing Laboratory Blood MAIN LAB [address] [place] [address] * COMPREHENSIVE METABOLIC PANEL (09/03/2017 9:45 AM) [...] Performing Laboratory Blood [facility] MAIN [facility] [address] [place] [address] * CBC AND DIFF (09/03/2017 9:45 AM) [...] Performing Laboratory Blood [facility] MAIN [facility] [address] [place] [address] * CT CHEST WO CONTRAST (09/02/2017 8:19 [...] Performing Laboratory Blood [facility] MAIN [facility] [address] [place] [address] * COMPREHENSIVE METABOLIC PANEL (09/02/2017 5:51 AM) [...] Specimen Performing Laboratory Blood MAIN LAB [address] [place] [address] * CBC AND DIFF (09/02/2017 5:51 AM) [...] Specimen Performing Laboratory Blood MAIN LAB [address] [place] [address] * EVEROLIMUS BLOOD (09/02/2017 5:51 AM) Component Value Ref Range Everolimus 10.6 (H) 3 - 10 ng/mL Comment: Target concentrations vary by type of transplant, patient response, concomitant immunosuppression and post-transplant time interval.Test was performed on whole blood using MymCartS reagent and a Corby Deep Driver AU analyzer. Specimen Performing Laboratory MAIN LAB [address] [place] [address] * TACROLIMUS LEVEL(FK506) (09/02/2017 5:51 AM) Component Value Ref Range Tacrolimus 5.3 2 - 15 NG/ML Comment: Target concentrations vary by type of transplant, patient response, concomitant immunosuppression and post-transplant time interval.Test was performed on whole blood using Signifyd QMS reagent and a Corby Rianna AU analyzer. Specimen Performing Laboratory Blood [facility] MAIN LAB [address] [place] [address] * HEMODIALYSIS INPATIENT (09/01/2017 6:05 PM) Keiry [...] 15 g fistula needles at first attempt. @0Dialysis initiated, using 4K bath, UF goal is [...] Specimen Performing Laboratory Blood MAIN LAB [address] [place] [address] * CBC AND DIFF (09/01/2017 8:00 AM) [...] Specimen Performing Laboratory Blood MAIN LAB [address] [place] [address] * CHEST SINGLE VIEW (08/31/2017 7:39 PM) [...] to June 19, 2017, chest CT August 03 and 2017 Procedure Note Interface, Radiant Results - 09/01/2017 [...] - 39.0 SEC Specimen Performing Laboratory Blood [facility] MAIN LAB [address] [place] [address] * PROTIME INR (PT) (08/31/2017 7:07 PM) Component Value Ref Range INR 1.1 0.8 - 1.2 Specimen Performing Laboratory Blood [facility] MAIN LAB [address] [place] [address] * PHOSPHORUS (08/31/2017 6:30 PM) Component Value Ref Range Phosphorus 6.6 (H) 2.0 - 4.0 MG/DL Specimen Performing Laboratory MAIN LAB [address] [place] [address] * MAGNESIUM (08/31/2017 6:30 PM) Component Value Ref Range Magnesium 2.0 1.6 - 2.6 mg/dL Specimen Performing Laboratory MAIN LAB [address] [place] [address] * CBC AND DIFF (08/31/2017 6:30 PM) [...] 0.20 K/UL Specimen Performing Laboratory MAIN LAB [address] [place] [address] * COMPREHENSIVE METABOLIC PANEL (08/31/2017 6:30 PM) [...] questions. Specimen Performing Laboratory MAIN LAB [address] [place] [address] * CULTURE-BLOOD W/SENSITIVITY (08/31/2017 6:30 PM) Component Value Ref Range Battery Name BLOOD CULTURE Specimen Description BLOOD LEFT HAND Special Requests NONE Culture NO GROWTH 5 DAYS Report Status FINAL 09/06/2017 Specimen Performing Laboratory Blood MAIN LAB [address] [place] [address] * CULTURE-BLOOD W/SENSITIVITY (08/31/2017 6:15 PM) Component Value Ref Range Battery Name BLOOD CULTURE Specimen Description BLOOD LEFT ANTECUBITAL aerobic bottle only Special Requests Culture performed on specimen with less than the recommended volume of 10 ml/bottle. Decreased volume will affect sensitivity of culture. Culture NO GROWTH 5 DAYS Report Status FINAL 09/06/2017 Specimen Performing Laboratory Blood MAIN LAB [address] [place] [address] * GENERAL RAD CHEST EXTERNAL IMAGING (07/26/2017) Narrative This order has been auto finalized and does not contain a result. * GENERAL RAD CHEST EXTERNAL IMAGING (07/24/2017) Narrative This order has been auto finalized and does not contain a result. 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 Primary adenocarcinoma of lung, unspecified laterality (HCC) Admitting Diagnoses Diagnosis Lung Cancer vs TB Acid-fast bacteria present Mycobacterial infection - Acid-fast bacteria present Unspecified diseases due to mycobacteria Primary adenocarcinoma of lung, unspecified laterality (HCC) - Acid-fast bacteria present Administered Medications Medication Order MAR Action Action Date Dose Rate Site acetaminophen (TYLENOL) tablet 650 mg Given 09/04/2017 650 mg 650 mg, Oral, EVERY 4 HOURS PRN, 06:01 CDT Starting Sun09/04/17 at 0442, Until Sun09/14/17 at 1604, Pain non-opioid: may be used alone or in combination with opioid analgesia, TOTAL ACETAMINOPHEN DOSE NOT TO EXCEED 4GM DAILY albuterol 0.5% (PROVENTIL; VENTOLIN) Given 09/13/2017 2.5 mg nebulizer solution 2.5 mg 20:50 CDT 2.5 mg, Inhalation, RT FOUR TIMES DAILY AND PRN, First dose on Lizzie 09/13/17 at 2000, Until Discontinued, When administered by RT, will be per RT policy. Given 09/14/2017 2.5 mg 13:06 CDT apixaban (ELIQUIS) tablet 5 mg Given 09/13/2017 [...] 10 mg, Oral, DAILY, First dose on Sun09/03/17 at 1530, Until Discontinued Given 09/13/2017 10 mg 08:32 CDT Given 09/14/2017 10 mg 12:49 CDT everolimus (immunosuppressive) Given 09/14/2017 1.5 mg (ZORTRESS) tablet 1.5 mg 05:59 CDT 1.5 mg, Oral, TWICE DAILY, First dose on Sun09/14/17 at 0600, Until Discontinued, Do NOT crush. No grapefruit or grapefruit juice. GLOVES should be worn by nursing. NOTE: This is a HIGH ALERT Medication. guaiFENesin (ROBITUSSIN) oral solution 100 mg 100 mg, Oral, EVERY 4 HOURS PRN, Starting Lizzie 09/13/17 at 0713, Until Sun09/14/17 at 1604, Congestion ipratropium bromide (ATROVENT) 0.02 % Given 09/13/2017 0.5 mg nebulizer solution 0.5 mg 20:50 CDT 0.5 mg, Inhalation, RT FOUR TIMES DAILY AND PRN, First dose on Sun09/13/17 at 2000, Until Discontinued, When administered by RT, will be per RT policy. Given 09/14/2017 0.5 mg 13:06 CDT ondansetron (ZOFRAN) tablet 4 mg 4 mg, Oral, EVERY 6 HOURS PRN, Starting Sun09/03/17 at 2104, Until Sun09/14/17 at 1604, Nausea/Vomiting PO oxybutynin XL (DITROPAN XL) tablet 10 mg Given 09/11/2017 10 mg 10 mg, Oral, AT BEDTIME DAILY, First 16:42 CDT dose on Sun09/04/17 at 2100, Until Discontinued, Do not crush or chew Given 09/12/2017 10 mg 16:14 CDT Given 09/13/2017 10 mg 15:[address] (PROTONIX) tablet 40 mg Given 09/11/2017 40 mg 40 mg, Oral, DAILY, First dose on Sun 20:03 CDT 08/31/17 at 2100, Until Discontinued, Do not crush or chew tablet. Given 09/12/2017 40 mg 20:11 CDT Given 09/13/2017 40 mg 21:08 CDT sevelamer carbonate (RENVELA) tablet 800 Given 09/13/2017 800 mg mg 13:11 CDT 800 mg, Oral, THREE TIMES DAILY WITH MEALS, First dose on Sun09/01/17 at 1800, Until Discontinued, Take with meals. Tablets should be swallowed whole; do not crush, break, or chew. Contents expand in water. Given 09/13/2017 800 mg 18:34 CDT Given 09/14/2017 800 mg 12:48 CDT sodium chloride 0.9 % infusion 1,000 mL, 1,000 mL, Intravenous, PRN IN IP DIALYSIS, 1 dose, Starting Sun09/14/17 at 0250, Until Sun09/14/17 at 1604, for dialysis, Use to flush dialysis circuit during anticoagulation. Infuse 100-200 mL at 30-60 minute intervals, clamping arterial tubing during infusion. Only tap builder can release and administer sodium chloride 0.9 % infusion 1,000 mL, 300 mL, Intravenous, PRN IN IP DIALYSIS, 1 dose, Starting Sun09/14/17 at 0250, Until Sun09/14/17 at 1604, Other..., Prime Rinse, For Prime/Rinseback Only tap builder can release and administer. sodium chloride 0.9 % infusion 1,000 mL, 250 mL, Intravenous, PRN IN IP DIALYSIS, 1 dose, Starting Sun09/14/17 at 0250, Until Sun09/14/17 at 1604, Other..., hypotension secondary to dialysis, For bolus use only. May give bolus times 4, if blood pressure remains low contact the provider. Second Line therapy when ordered with Albumin. Only tap builder can release and administer tacrolimus (PROGRAF) capsule 1 mg Given 09/14/2017 [...] equivalent to 50% of oral route -- in this encounter
--- OUTSIDE RECORDS SUMMARY | 2017-09-19 06:56 | XMS REPORT | Encounter Summary ---
Author Author [facility] Organization [facility] Address Unknown Phone Unavailable Care Team Providers Care Lockstitch Waistline Joiner Name Role Phone Regan Brock MD Unavailable Prerna Gray APRN Unavailable Micah Pizano MD Unavailable Rudy Almendarez MD Unavailable Unavailable Yamile Rodriguez PhD Unavailable Arpan Blakely MD Unavailable Lida Yang Unavailable Doctor, Miscellaneous Unavailable Unavailable Josy Sampson MD Unavailable Guille Han MD Unavailable Miranda Gomez BIODIESEL PRODUCT MANAGER Unavailable Unavailable Rehana Arellano RN Unavailable Unavailable Hetal Mark MD Unavailable Luigi Callahan MD Unavailable Unavailable Bridget Yip MD Unavailable Harini Perez BIODIESEL PRODUCT MANAGER Unavailable Unavailable Monalisa Cardoza BIODIESEL PRODUCT MANAGER Unavailable Rah Franks MD Unavailable Mitul Rai MD Unavailable Monalisa Gtz BIODIESEL PRODUCT MANAGER Unavailable Fabiana Rodriguez MD Unavailable Jared [...] Unavailable Fortino Hamm MD Unavailable Farhad Silva BIODIESEL PRODUCT MANAGER Unavailable Tonia David MD Unavailable Unavailable Josué Arellano MD Unavailable Nancy Garner MD Unavailable Reason for Visit * Reason Comments Navigation Follow Up Encounter Details Date Type Department Care Team Description 08/31/2017 Telephone [facility] Teri Hopkins, KIERSTEN Navigation Follow Up Cancer Center - Exam [address] [place] [address] Social History Tobacco Use Types Packs/Day Years [...] Telephone Encounter - Teri Hopkins RN - 08/31/2017 2:47 PM CDT Patient's , Louise, called to say that patient is being admitted to today due to 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 She requested we cancel his appt with Dr. Ventura on Sunday; we will reschedule when we know Faustino is being discharged. states she will request a medical oncology consult while Faustino is inpatient. in this encounter Plan of Treatment Not on fileas of this encounter Visit Diagnoses Not on filein this encounter
--- OUTSIDE RECORDS SUMMARY | 2017-09-19 06:57 | XMS REPORT | Encounter Summary ---
Author Author [facility] Organization [facility] Address Unknown Phone Unavailable Care Team Providers Care Software Development Leader Name Role Phone Regan Brock MD Unavailable Prerna Gray APRN Unavailable Micah Pizano MD Unavailable Rudy Almendarez MD Unavailable Unavailable Yamile Rodriguez PhD Unavailable Arpan Blakely MD Unavailable Lida Yang Unavailable Doctor, Miscellaneous Unavailable Unavailable Josy Sampson MD Unavailable Guille Han MD Unavailable Miranda Gomez HOSE SPRAYER Unavailable Unavailable Rehana Arellano RN Unavailable Unavailable Hetal Mark MD Unavailable Luigi Callahan MD Unavailable Unavailable Bridget Yip MD Unavailable Harini Perez HOSE SPRAYER Unavailable Unavailable Monalisa Cardoza HOSE SPRAYER Unavailable Rah Franks MD Unavailable Mitul Rai MD Unavailable Monalisa Gtz HOSE SPRAYER Unavailable Fabiana Rodriguez MD Unavailable Jared Adam [...] Unavailable Fortino Hamm MD Unavailable Farhad Silva HOSE SPRAYER Unavailable Tonia David MD Unavailable Unavailable Josué Arellano MD Unavailable Nancy Garner MD Unavailable Encounter Details Date Type Department Care Team Description 08/14/2017 [facility] Radiology [address] [place] [address] Social History Tobacco Use Types Packs/Day Years [...] Sig. Disp. Refills Start Date End Date aspirin 81 mg chewable Take 1 Tab by mouth 30 Tab 5 07/26/2015 tablet daily. atorvastatin (LIPITOR) 10 1 Tab daily. 90 Tab 3 06/27/2016 mg tablet doxazosin (CARDURA) 2 mg Take 1 Tab by mouth 30 Tab 0 06/03/2015 tablet daily. oxybutynin XL (DITROPAN Take 5 mg by mouth daily. XL) [address] TAKE ONE TABLET BY MOUTH 30 tablet 5 03/13/2017 (PROTONIX) 40 mg tablet DAILY tamsulosin (FLOMAX) 0.4 TAKE ONE CAPSULE BY MOUTH 30 Cap 11 2015 mg capsule DAILY AFTER BREAKFAST amLODIPine (NORVASC) 10 TAKE ONE TABLET BY MOUTH 30 Tab 10 04/10/2016 08/31/2017 mg tablet DAILY calcium carbonate Take 1,250 mg by mouth 08/31/2017 (OS-RANJIT) 1250 mg tablet daily. cefdinir (OMNICEF) 300 mg Take 300 mg by mouth 08/31/2017 capsule every 12 hours. everolimus Take 2 mg by mouth twice 09/13/2017 (immunosuppressive) daily. (ZORTRESS) 0.5 mg tabletIndications: PREVENTION OF LIVER TRANSPLANT REJECTION tacrolimus (PROGRAF) 1 mg Take 1 capsule by mouth 60 capsule 5 201609/13/2017 capsule twice daily. traMADol (ULTRAM) 50 mg Take 1 Tab by mouth every 6 Tab 0 07/07/2016 09/13/2017 tablet 8 hours as needed for Pain. zinc sulfate 220 mg (50 Take 220 mg by mouth 08/31/2017 mg elemental zinc) daily. capsule as of this encounter Plan of Treatment Not on fileas of this encounter Results * MRI HEAD EXTERNAL IMAGING (08/14/2017 12:15 AM) Narrative This order has been auto finalized and does not contain a result. in this encounter Visit Diagnoses Diagnosis Diagnosis unknown Other unknown and unspecified cause of morbidity or mortality
--- OUTSIDE RECORDS SUMMARY | 2017-09-19 06:57 | XMS REPORT | Encounter Summary ---
Author Author [facility] Organization [facility] Address Unknown Phone Unavailable Care Team Providers Care Pantograph Setter Name Role Phone Regan Brock MD Unavailable Prerna Gray APRN Unavailable Micah Pizano MD Unavailable Rudy Almendarez MD Unavailable Unavailable Yamile Rodriguez PhD Unavailable Arpan Blakely MD Unavailable Lida Yang Unavailable Doctor, Miscellaneous Unavailable Unavailable Josy Sampson MD Unavailable Guille Han MD Unavailable Miranda Gomez CATASTROPHE CLAIMS SUPERVISOR Unavailable Unavailable Rehana Arellano RN Unavailable Unavailable Hetal Mark MD Unavailable Luigi Callahan MD Unavailable Unavailable Bridget Yip MD Unavailable Harini Perez CATASTROPHE CLAIMS SUPERVISOR Unavailable Unavailable Monalisa Cardoza CATASTROPHE CLAIMS SUPERVISOR Unavailable Rah Franks MD Unavailable Mitul Rai MD Unavailable Monalisa Gtz CATASTROPHE CLAIMS SUPERVISOR Unavailable Fabiana Rodriguez MD Unavailable Jared [...] Unavailable Fortino Hamm MD Unavailable Farhad Silva CATASTROPHE CLAIMS SUPERVISOR Unavailable Tonia David MD Unavailable Unavailable Josué Arellano MD Unavailable Nancy Garner MD Unavailable Encounter Details Date Type Department Care Team Description 08/20/2017 Documentation [facility] - [facility] Exam [address] [place] [address] Social History Tobacco Use Types Packs/Day Years [...]
--- OUTSIDE RECORDS SUMMARY | 2017-09-19 06:57 | XMS REPORT | Encounter Summary ---
Author Author [facility] Organization [facility] Address Unknown Phone Unavailable Care Team Providers Care Retail Gift Card Merchandising Name Role Phone Regan Brock MD Unavailable Prerna Gray APRN Unavailable Micah Pizano MD Unavailable Rudy Almendarez MD Unavailable Unavailable Yamile Rodriguez PhD Unavailable Arpan Blakely MD Unavailable Lida Yang Unavailable Doctor, Miscellaneous Unavailable Unavailable Josy Sampson MD Unavailable Guille Han MD Unavailable Miranda Gomez FAST FOOD SERVER Unavailable Unavailable Rehana Arellano RN Unavailable Unavailable Hetal Mark MD Unavailable Luigi Callahan MD Unavailable Unavailable Bridget Yip MD Unavailable Harini Perez FAST FOOD SERVER Unavailable Unavailable Monalisa Cardoza FAST FOOD SERVER Unavailable Rah Franks MD Unavailable Mitul Rai MD Unavailable Monalisa Gtz FAST FOOD SERVER Unavailable Fabiana Rodriguez MD Unavailable Jared Adam MD Unavailable Thierry Garduno MD Unavailable Regan Gamble MD Unavailable Laly Ceja MD Unavailable Unavailable Faith Fields MD Unavailable Samantha Pruitt MD Unavailable Unavailable Андрей Griffin MD Unavailable Adam Paz MD Unavailable Jennie Bill MD Unavailable Delmy Rodriugez MD Unavailable Unavailable Zo FryN Unavailable Unavailable [...] Unavailable Fortino Hamm MD Unavailable Farhad Silva FAST FOOD SERVER Unavailable Tonia David MD Unavailable Unavailable Josué Arellano MD Unavailable Nancy Garner MD Unavailable Encounter Details Date Type Department Care Team Description 08/21/2017 Ancillary Rad Outpatient, Radiologist Diagnosis unknown Orders [address] [place] [address] Social History Tobacco Use Types Packs/Day Years [...] encounter Results * CT CHEST EXTERNAL IMAGING (07/18/2017) Narrative This order has been auto finalized and does not contain a result. in this encounter Visit Diagnoses Diagnosis Diagnosis unknown Other unknown and unspecified cause of morbidity or mortality
--- OUTSIDE RECORDS SUMMARY | 2017-09-19 06:57 | XMS REPORT | Encounter Summary ---
Author Author [facility] Organization [facility] Address Unknown Phone Unavailable Care Team Providers Care Cable Splicing Technician Name Role Phone Regan Brock MD Unavailable Prerna Gray APRN Unavailable Micah Pizano MD Unavailable Rudy Almendarez MD Unavailable Unavailable Yamile Rodriguez PhD Unavailable Arpan Blakely MD Unavailable Lida Yang Unavailable Doctor, Miscellaneous Unavailable Unavailable Josy Sampson MD Unavailable Guille Han MD Unavailable Miranda Gomez GROUP DIRECTOR Unavailable Unavailable Rehana Arellano RN Unavailable Unavailable Hetal Mark MD Unavailable Luigi Callahan MD Unavailable Unavailable Bridget Yip MD Unavailable Harini Perez GROUP DIRECTOR Unavailable Unavailable Monalisa Cardoza GROUP DIRECTOR Unavailable Rah Franks MD Unavailable Mitul Rai MD Unavailable Monalisa Gtz GROUP DIRECTOR Unavailable Fabiana Rodriguez MD Unavailable Jared [...] Unavailable Fortino Hamm MD Unavailable Farhad Silva GROUP DIRECTOR Unavailable Tonia David MD Unavailable Unavailable Josué Arellano MD Unavailable Nancy Garner MD Unavailable Encounter Details Date Type Department Care Team Description 08/22/2017 Ancillary Rad Outpatient, Radiologist Orders [address] [place] [address] Social History Tobacco Use Types Packs/Day Years [...] on fileas of this encounter Results * GENERAL RAD CHEST EXTERNAL IMAGING (06/28/2017) Narrative This order has been auto finalized and does not contain a result. * GENERAL RAD CHEST EXTERNAL IMAGING (06/19/2017) Narrative This order has been auto finalized and does not contain a result. in this encounter Visit Diagnoses Not on filein this encounter
--- OUTSIDE RECORDS SUMMARY | 2017-09-19 06:57 | XMS REPORT | Encounter Summary ---
Author Author [facility] Organization [facility] Address Unknown Phone Unavailable Care Team Providers Care Wet Pour Mixer Name Role Phone Regan Brock MD Unavailable Prerna Gray APRN Unavailable Micah Pizano MD Unavailable Rudy Almendarez MD Unavailable Unavailable Yamile Rodriguez PhD Unavailable Arpan Blakely MD Unavailable Lida Yang Unavailable Doctor, Miscellaneous Unavailable Unavailable Josy Sampson MD Unavailable Guille Han MD Unavailable Miranda Gomez PATIENT COMPANION Unavailable Unavailable Rehana Arellano RN Unavailable Unavailable Hetal Mark MD Unavailable Luigi Callahan MD Unavailable Unavailable Bridget Yip MD Unavailable Harini Perez PATIENT COMPANION Unavailable Unavailable Monalisa Cardoza PATIENT COMPANION Unavailable Rah Franks MD Unavailable Mitul Rai MD Unavailable Monalisa Gtz PATIENT COMPANION Unavailable Fabiana Rodriguez MD Unavailable Jared Adam [...] Unavailable Fortino Hamm MD Unavailable Farhad Silva PATIENT COMPANION Unavailable Tonia David MD Unavailable Unavailable Josué Arellano MD Unavailable Nancy Garner MD Unavailable Encounter Details Date Type Department Care Team Description 08/20/2017 Ancillary Rad Outpatient, Radiologist Diagnosis unknown Orders [address] [place] [address] Social History Tobacco Use Types Packs/Day Years [...] Results * GENERAL RAD CHEST EXTERNAL IMAGING (08/15/2017 12:15 AM) Narrative This order has been auto finalized and does not contain a result. * GENERAL RAD CHEST EXTERNAL IMAGING (08/15/2017) Narrative This order has been auto finalized and does not contain a result. * MRI HEAD EXTERNAL IMAGING (08/14/2017 12:15 AM) Narrative This order has been auto finalized and does not contain a result. * GENERAL RAD CHEST EXTERNAL IMAGING (08/14/2017) Narrative This order has been auto finalized and does not contain a result. * GENERAL RAD CHEST EXTERNAL IMAGING (08/13/2017) Narrative This order has been auto finalized and does not contain a result. * GENERAL RAD CHEST EXTERNAL IMAGING (08/12/2017) Narrative This order has been auto finalized and does not contain a result. * CT CHEST EXTERNAL IMAGING (08/11/2017) Narrative This order has been auto finalized and does not contain a result. * GENERAL RAD CHEST EXTERNAL IMAGING (08/10/2017) Narrative This order has been auto finalized and does not contain a result. * GENERAL RAD CHEST EXTERNAL IMAGING (08/09/2017 12:15 AM) Narrative This order has been auto finalized and does not contain a result. * GENERAL RAD CHEST EXTERNAL IMAGING (08/09/2017) Narrative This order has been auto finalized and does not contain a result. * GENERAL RAD CHEST EXTERNAL IMAGING (08/06/2017) Narrative This order has been auto finalized and does not contain a result. * CT ABDOMEN EXTERNAL IMAGING (08/03/2017) Narrative This order has been auto finalized and does not contain a result. * GENERAL RAD CHEST EXTERNAL IMAGING (08/02/2017) Narrative This order has been auto finalized and does not contain a result. * CT ABD/PEL EXTERNAL IMAGING (07/05/2017 12:15 AM) Narrative This order has been auto finalized and does not contain a result. * GENERAL RAD MISC EXTERNAL IMAGING (07/05/2017) Narrative This order has been auto finalized and does not contain a result. * GENERAL RAD CHEST EXTERNAL IMAGING (08/17/2016) Narrative This order has been auto finalized and does not contain a result. * GENERAL RAD CHEST EXTERNAL IMAGING (08/14/2016) Narrative This order has been auto finalized and does not contain a result. in this encounter Visit Diagnoses Diagnosis Diagnosis unknown Other unknown and unspecified cause of morbidity or mortality
--- OUTSIDE RECORDS SUMMARY | 2017-09-19 06:57 | XMS REPORT | Encounter Summary ---
Author Author [facility] Organization [facility] Address Unknown Phone Unavailable Care Team Providers Care Director Of Exhibits Name Role Phone Regan Brock MD Unavailable Prerna Gray APRN Unavailable Micah Pizano MD Unavailable Rudy Almendarez MD Unavailable Unavailable Yamile Rodriguez PhD Unavailable Arapn Blakely MD Unavailable Lida Yang Unavailable Doctor, Miscellaneous Unavailable Unavailable Josy Sampson MD Unavailable Guille Han MD Unavailable Miranda Gomez CUBE CUTTER Unavailable Unavailable Rehana Arellano RN Unavailable Unavailable Hetal Mark MD Unavailable Luigi Callahan MD Unavailable Unavailable Bridget Yip MD Unavailable Harini Perez CUBE CUTTER Unavailable Unavailable Monalisa Cardoza CUBE CUTTER Unavailable Rah Franks MD Unavailable Mitul Rai MD Unavailable Monalisa Gtz CUBE CUTTER Unavailable Fabiana Rodriguez MD Unavailable Jared [...] Unavailable Unavailable Elva Ceja RN Unavailable Unavailable Anthnoy Newman RN Unavailable Unavailable Wilma Mckeon Unavailable Unavailable Jayla Wise Unavailable Unavailable Enoch Hawkins RN 2 Unavailable Daysi Pretty MA Unavailable Unavailable Fortino Hamm MD Unavailable Farhad Silva CUBE CUTTER Unavailable Tonia David MD Unavailable Unavailable Josué Arellano MD Unavailable Nancy Garner MD Unavailable Encounter Details Date Type Department Care Team Description 08/15/2017 Documentation [facility] Katie Campos, [facility] Exam [address] [place] [address] Social History Tobacco Use Types Packs/Day Years [...] as of this encounter Progress Notes * Katie Campos RN - 08/15/2017 4:36 PM CDT Documentation encounter opened in attempt to import data from Care Everywhere. Katie Campos RN in this encounter Plan of Treatment Not on fileas of this encounter Visit Diagnoses Not on filein this encounter
--- OUTSIDE RECORDS SUMMARY | 2017-09-19 06:57 | XMS REPORT | Encounter Summary ---
Author Author [facility] Organization [facility] Address Unknown Phone Unavailable Care Team Providers Care Spare Hand Carding Name Role Phone Regan Brock MD Unavailable Prerna Gray APRN Unavailable Micah Pizano MD Unavailable Rudy Almendarez MD Unavailable Unavailable Yamile Rodriguez PhD Unavailable Arpan Blakely MD Unavailable Lida Yang Unavailable Doctor, Miscellaneous Unavailable Unavailable Josy Sampson MD Unavailable Guille Han MD Unavailable Miranda Gomez SUPERVISOR CUSTOMER RECORDS DIVISION Unavailable Unavailable Rehana Arellano RN Unavailable Unavailable Hetal Mark MD Unavailable Luigi Callahan MD Unavailable Unavailable Bridget Yip MD Unavailable Harini Perez SUPERVISOR CUSTOMER RECORDS DIVISION Unavailable Unavailable Monalisa Cardoza SUPERVISOR CUSTOMER RECORDS DIVISION Unavailable Rah Franks MD Unavailable Mitul Rai MD Unavailable Monalisa Gtz SUPERVISOR CUSTOMER RECORDS DIVISION Unavailable Fabiana Rodriguez MD Unavailable Jared Adam MD Unavailable Thierry Garduon MD Unavailable Regan Gamble MD Unavailable Laly Ceja MD Unavailable Unavailable Faith Fields MD Unavailable Samantha Pruitt MD Unavailable Unavailable Андрей Griffin MD Unavailable Adam Paz MD Unavailable Jennie Bill MD Unavailable Delmy Rodriguez MD Unavailable Unavailable Zo FryN Unavailable Unavailable Kev Peters RN Unavailable Unavailable Zolia Peres Unavailable Unavailable Johnny Archer MD Unavailable Mike Anderson Unavailable Unavailable Elizabeth Goetz Unavailable Unavailable Wilma Masterson Unavailable Unavailable Minerva Lima Unavailable Unavailable Elva Ceja RN Unavailable Unavailable Anthony Newman RN Unavailable Unavailable Wilma Mckeon Unavailable Unavailable Jayla Wise Unavailable Unavailable Enoch Hawkins RN 2 Unavailable Daysi Pretty MA Unavailable Unavailable Fortino Hamm MD Unavailable Farhad Silva SUPERVISOR CUSTOMER RECORDS DIVISION Unavailable Tonia David MD Unavailable Unavailable Josué Arellano MD Unavailable Nancy Garner MD Unavailable Encounter Details Date Type Department Care Team Description 08/23/2017 Ancillary Rad Outpatient, Radiologist Orders [address] [place] [address] Social History Tobacco Use Types Packs/Day Years [...] Results * GENERAL RAD CHEST EXTERNAL IMAGING (07/23/2017) Narrative This order has been auto finalized and does not contain a result. * GENERAL RAD ABDOMEN EXTERNAL IMAGING (06/04/2017) Narrative This order has been auto finalized and does not contain a result. in this encounter Visit Diagnoses Not on filein this encounter
--- OUTSIDE RECORDS SUMMARY | 2017-09-19 06:57 | XMS REPORT | Encounter Summary ---
Author Author [facility] Organization [facility] Address Unknown Phone Unavailable Care Team Providers Care Parquetry Floor Layer Name Role Phone Regan Brock MD Unavailable Prerna Gray APRN Unavailable Micah Pizano MD Unavailable Rudy Almendarez MD Unavailable Unavailable Yamile Rodriguez PhD Unavailable Arpan Blakely MD Unavailable Lida Yang Unavailable Doctor, Miscellaneous Unavailable Unavailable Josy Sampson MD Unavailable Guille Han MD Unavailable Miranda Gomez CREDIT COLLECTOR Unavailable Unavailable Rehana Arellano RN Unavailable Unavailable Hetal Mark MD Unavailable Luigi Callahan MD Unavailable Unavailable Bridget Yip MD Unavailable Harini Perez CREDIT COLLECTOR Unavailable Unavailable Monalisa Cardoza CREDIT COLLECTOR Unavailable Rah Franks MD Unavailable Mitul Rai MD Unavailable Monalisa Gtz CREDIT COLLECTOR Unavailable Fabiana Rodriguez MD Unavailable Jared Adam [...] Unavailable Fortino Hamm MD Unavailable Farhad Silva CREDIT COLLECTOR Unavailable Tonia David MD Unavailable Unavailable Josué Arellano MD Unavailable Nancy Garner MD Unavailable Encounter Details Date Type Department Care Team Description 08/15/2017 [facility] Radiology [address] [facility] [address] [place] [address] Social History Tobacco Use Types Packs/Day Years [...] Results * GENERAL RAD CHEST EXTERNAL IMAGING (08/15/2017) Narrative This order has been auto finalized and does not contain a result. in this encounter Visit Diagnoses Diagnosis Diagnosis unknown Other unknown and unspecified cause of morbidity or mortality
--- OUTSIDE RECORDS SUMMARY | 2017-09-19 06:57 | XMS REPORT | Encounter Summary ---
Author Author [facility] Organization [facility] Address Unknown Phone Unavailable Care Team Providers Care Greeting Card Editor Name Role Phone Regan Brock MD Unavailable Prerna Gray APRN Unavailable Micah Pizano MD Unavailable Rudy Almendarez MD Unavailable Unavailable Yamile Rodriguez PhD Unavailable Arpan Blakely MD Unavailable Lida Yang Unavailable Doctor, Miscellaneous Unavailable Unavailable Josy Sampson MD Unavailable Guille Han MD Unavailable Miranda Gomez VEGETABLE FARM MANAGER Unavailable Unavailable Rehana Arellano RN Unavailable Unavailable Hetal Mark MD Unavailable Luigi Callahan MD Unavailable Unavailable Bridget Yip MD Unavailable Harini Perez VEGETABLE FARM MANAGER Unavailable Unavailable Monalisa Cardoza VEGETABLE FARM MANAGER Unavailable Rah Franks MD Unavailable Mitul Rai MD Unavailable Monalisa Gtz VEGETABLE FARM MANAGER Unavailable Fabiana Rodriguez MD Unavailable Jared [...] Unavailable Fortino Hamm MD Unavailable Farhad Silva VEGETABLE FARM MANAGER Unavailable Tonia David MD Unavailable Unavailable Josué Arellano MD Unavailable Nancy Garner MD Unavailable Encounter Details Date Type Department Care Team Description 08/15/2017 [facility] Radiology [address] [facility] [address] [place] [address] Social History Tobacco Use Types Packs/Day Years [...]
--- OUTSIDE RECORDS SUMMARY | 2017-09-19 06:58 | XMS REPORT | Encounter Summary ---
Author Author [facility] Organization [facility] Address Unknown Phone Unavailable Care Team Providers Care Backhaul Driver Name Role Phone Regan Brock MD Unavailable Prerna Gray APRN Unavailable Micah Pizano MD Unavailable Rudy Almendarez MD Unavailable Unavailable Yamile Rodriguez PhD Unavailable Arpan Blakely MD Unavailable Lida Yang Unavailable Doctor, Miscellaneous Unavailable Unavailable Josy Sampson MD Unavailable Guille Han MD Unavailable Miranda Gomez CHIEF QUALITY OFFICER Unavailable Unavailable Rehana Arellano RN Unavailable Unavailable Hetal Mark MD Unavailable Luigi Callahan MD Unavailable Unavailable Bridget Yip MD Unavailable Harini Perez CHIEF QUALITY OFFICER Unavailable Unavailable Monalisa Cardoza CHIEF QUALITY OFFICER Unavailable Rah Franks MD Unavailable Mitul Rai MD Unavailable Monalisa Gtz CHIEF QUALITY OFFICER Unavailable Fabiana Rodriguez MD Unavailable Jared Adam [...] Unavailable Fortino Hamm MD Unavailable Farhad Silva CHIEF QUALITY OFFICER Unavailable Tonia David MD Unavailable Unavailable Josué Arellano MD Unavailable Nancy Garner MD Unavailable Reason for Referral * Consult, Test & Treat Status Reason Specialty Diagnoses / Referred By Referred To Procedures Contact Contact No Auth Needed Specialty Oncology Diagnoses Regan Brock, Cc - Ww Cl Services Adenocarcinoma Exm/Proc Rm Required ([facility]) [address] [facility] [id number] [place] [id number] Phone: Reason for Visit * Reason Comments Other Encounter Details Date Type Department Care Team Description 08/14/2017 Telephone Center for Kev Peters RN Other Transplantation-Liver Transplant Hep [address] [facility] [address] Social History Tobacco Use Types Packs/Day Years [...] Telephone Encounter - Rebeca Tatum MA - 08/15/2017 8:13 AM CDT Request for Bronchoscopy Pathology report faxed to HIM at [facility]). * Telephone Encounter - Kev Peters RN - 08/14/2017 3:55 PM CDT Received a phone call from physician at [facility]. Reports FK level was 3.8. Informed pt is in fact on [place]. Physician recent bronchoscopy showed adenocarcinoma. States their oncologists do not feel comfortable treating pt. Will refer to our oncology department. in this encounter Plan of Treatment Name Priority Associated Diagnoses Order Schedule AMB REFERRAL TO ONCOLOGY Routine Adenocarcinoma (HCC) Ordered: 2017 as of this encounter Visit Diagnoses Diagnosis Adenocarcinoma (HCC) - Primary Other malignant neoplasm without specification of site
--- OUTSIDE RECORDS SUMMARY | 2017-09-19 06:58 | XMS REPORT | Encounter Summary ---
Author Author [facility] Organization [facility] Address Unknown Phone Unavailable Care Team Providers Care Rn Mental Health Name Role Phone Regan Brock MD Unavailable Prerna Gray APRN Unavailable Micah Pizano MD Unavailable Rudy Almendarez MD Unavailable Unavailable Yamile Rodriguez PhD Unavailable Arpan Blakely MD Unavailable Lida Yang Unavailable Doctor, Miscellaneous Unavailable Unavailable Josy Sampson MD Unavailable Guille Han MD Unavailable Miranda Gomez CLINICAL RESEARCH MONITOR Unavailable Unavailable Rehana Arellano RN Unavailable Unavailable Hetal Mark MD Unavailable Luigi Callahan MD Unavailable Unavailable Bridget Yip MD Unavailable Harini Perez CLINICAL RESEARCH MONITOR Unavailable Unavailable Monalisa Cardoza CLINICAL RESEARCH MONITOR Unavailable Rah Franks MD Unavailable Mitul Rai MD Unavailable Monalisa Gtz CLINICAL RESEARCH MONITOR Unavailable Fabiana Rodriguez MD Unavailable Jared Adam [...] Unavailable Fortino Hamm MD Unavailable Farhad Silva CLINICAL RESEARCH MONITOR Unavailable Tonia David MD Unavailable Unavailable Josué Arellano MD Unavailable Nancy Garner MD Unavailable Encounter Details Date Type Department Care Team Description 08/10/2017 [facility] Radiology [address] [facility] [address] [place] [address] Social History Tobacco Use Types Packs/Day Years [...] 08/31/2017 capsule every 12 hours. everolimus Take 4 tablets by mouth 240 tablet 11 05/03/20172017 (immunosuppressive) twice daily. (ZORTRESS) 0.5 mg tablet tacrolimus (PROGRAF) 1 mg Take 1 capsule [...] Results * GENERAL RAD CHEST EXTERNAL IMAGING (08/10/2017) Narrative This order has been auto finalized and does not contain a result. in this encounter Visit Diagnoses Diagnosis Diagnosis unknown Other unknown and unspecified cause of morbidity or mortality
--- OUTSIDE RECORDS SUMMARY | 2017-09-19 06:58 | XMS REPORT | Encounter Summary ---
Author Author [facility] Organization [facility] Address Unknown Phone Unavailable Care Team Providers Care Lifeline Representatives Name Role Phone Regan Brock MD Unavailable Prerna Gray APRN Unavailable Micah Pizano MD Unavailable Rudy Almendarez MD Unavailable Unavailable Yamile Rodriguez PhD Unavailable Arpan Blakely MD Unavailable Lida Yang Unavailable Doctor, Miscellaneous Unavailable Unavailable Josy Sampson MD Unavailable Guille Han MD Unavailable Miranda Gomez COMMUNITY DIETITIAN Unavailable Unavailable Rehana Arellano RN Unavailable Unavailable Hetal Mark MD Unavailable Luigi Callahan MD Unavailable Unavailable Bridget Yip MD Unavailable Harini Perez COMMUNITY DIETITIAN Unavailable Unavailable Monalisa Cardoza COMMUNITY DIETITIAN Unavailable Rah Franks MD Unavailable Mitul Rai MD Unavailable Monalisa Gtz COMMUNITY DIETITIAN Unavailable Fabiana Rodriguez MD Unavailable Jared Adam [...] Unavailable Fortino Hamm MD Unavailable Farhad Silva COMMUNITY DIETITIAN Unavailable Tonia David MD Unavailable Unavailable Josué Arellano MD Unavailable Nancy Garner MD Unavailable Encounter Details Date Type Department Care Team Description 08/14/2017 [facility] Radiology [address] [facility] [address] [place] [address] Social History Tobacco Use Types Packs/Day Years [...] Results * GENERAL RAD CHEST EXTERNAL IMAGING (08/14/2017) Narrative This order has been auto finalized and does not contain a result. in this encounter Visit Diagnoses Diagnosis Diagnosis unknown Other unknown and unspecified cause of morbidity or mortality
--- OUTSIDE RECORDS SUMMARY | 2017-09-19 06:58 | XMS REPORT | Encounter Summary ---
Author Author [facility] Organization [facility] Address Unknown Phone Unavailable Care Team Providers Care Stereo Equipment Repairer Name Role Phone Regan Brock MD Unavailable Prerna Gray APRN Unavailable Micah Pizano MD Unavailable Rudy Almendarez MD Unavailable Unavailable Yamile Rodriguez PhD Unavailable Arpan Blakely MD Unavailable Lida Yang Unavailable Doctor, Miscellaneous Unavailable Unavailable Josy Sampson MD Unavailable Guille Han MD Unavailable Miranda Gomez MARKETING SALES CONSULTANT Unavailable Unavailable Rehana Arellano RN Unavailable Unavailable Hetal Mark MD Unavailable Luigi Callahan MD Unavailable Unavailable Bridget Yip MD Unavailable Harini Perez MARKETING SALES CONSULTANT Unavailable Unavailable Monalisa Cardoza MARKETING SALES CONSULTANT Unavailable Rah Franks MD Unavailable Mitul Rai MD Unavailable Monalisa Gtz MARKETING SALES CONSULTANT Unavailable Fabiana Rodriguez MD Unavailable Jared Adam [...] Fortino Hamm MD Unavailable Farhad Silva MARKETING SALES CONSULTANT Unavailable Tonia David MD Unavailable Unavailable Josué Arellano MD Unavailable Nancy Garner MD Unavailable Encounter Details Date Type Department Care Team Description 08/13/2017 [facility] Radiology [address] [facility] [address] [place] [address] Social History Tobacco Use Types Packs/Day Years [...] Results * GENERAL RAD CHEST EXTERNAL IMAGING (08/13/2017) Narrative This order has been auto finalized and does not contain a result. in this encounter Visit Diagnoses Diagnosis Diagnosis unknown Other unknown and unspecified cause of morbidity or mortality
--- OUTSIDE RECORDS SUMMARY | 2017-09-19 06:58 | XMS REPORT | Encounter Summary ---
Author Author [facility] Organization [facility] Address Unknown Phone Unavailable Care Team Providers Care Instrument Operator Name Role Phone Regan Brock MD Unavailable Prerna Gray APRN Unavailable Micah Pizano MD Unavailable Rudy Almendarez MD Unavailable Unavailable Yamile Rodriguez PhD Unavailable Arpan Blakely MD Unavailable Lida Yang Unavailable Doctor, Miscellaneous Unavailable Unavailable Josy Sampson MD Unavailable Guille Han MD Unavailable Miranda Gomez MOTEL FRONT DESK ATTENDANT Unavailable Unavailable Rehana Arellano RN Unavailable Unavailable Hetal Mark MD Unavailable Luigi Callahan MD Unavailable Unavailable Bridget Yip MD Unavailable Harini Perez MOTEL FRONT DESK ATTENDANT Unavailable Unavailable Monalisa Cardoza MOTEL FRONT DESK ATTENDANT Unavailable Rah Franks MD Unavailable Mitul Rai MD Unavailable Monalisa Gtz MOTEL FRONT DESK ATTENDANT Unavailable Fabiana Rodriguez MD Unavailable Jared Adam [...] Unavailable Fortino Hamm MD Unavailable Farhad Silva MOTEL FRONT DESK ATTENDANT Unavailable Tonia David MD Unavailable Unavailable Josué Arellano MD Unavailable Nancy Garner MD Unavailable Encounter Details Date Type Department Care Team Description 08/11/2017 [facility] Radiology [address] [facility] [address] [place] [address] Social History Tobacco Use Types Packs/Day Years [...] encounter Results * CT CHEST EXTERNAL IMAGING (08/11/2017) Narrative This order has been auto finalized and does not contain a result. in this encounter Visit Diagnoses Diagnosis Diagnosis unknown Other unknown and unspecified cause of morbidity or mortality
--- OUTSIDE RECORDS SUMMARY | 2017-09-19 06:58 | XMS REPORT | Encounter Summary ---
Author Author [facility] Organization [facility] Address Unknown Phone Unavailable Care Team Providers Care Showroom Sales Assistant Name Role Phone Regan Brock MD Unavailable Prerna Gray APRN Unavailable Micah Pizano MD Unavailable Rudy Almendarez MD Unavailable Unavailable Yamile Rodriguez PhD Unavailable Arpan Blakely MD Unavailable Lida Yang Unavailable Doctor, Miscellaneous Unavailable Unavailable Josy Sampson MD Unavailable Guille Han MD Unavailable Miranda Gomez JOURNEYMAN PIPE FITTER Unavailable Unavailable Rehana Arellano RN Unavailable Unavailable Hetal Mark MD Unavailable Luigi Callahan MD Unavailable Unavailable Bridget Yip MD Unavailable Harini Perez JOURNEYMAN PIPE FITTER Unavailable Unavailable Monalisa Cardoza JOURNEYMAN PIPE FITTER Unavailable Rah Franks MD Unavailable Mitul Rai MD Unavailable Monalisa Gtz JOURNEYMAN PIPE FITTER Unavailable Fabiana Rodriguez MD Unavailable Jared Adam MD Unavailable Thierry Garduno MD Unavailable Regan Gamble MD Unavailable Laly Ceja MD Unavailable Unavailable Faith Fields MD Unavailable Samantha Pruitt MD Unavailable Unavailable Андрей Griffin MD Unavailable Adam Paz MD Unavailable Jennie Bill MD Unavailable Delmy Rodriguez MD Unavailable Unavailable Zo Fry BSN Unavailable Unavailable Doug Doty RN Unavailable Unavailable Zoila Peres Unavailable Unavailable Johnny Archer MD Unavailable Mike Anderson Unavailable Unavailable Elizabeth Goetz Unavailable Unavailable Wilma Masterson Unavailable Unavailable Minerva Lima Unavailable Unavailable Elva Ceja RN Unavailable Unavailable Anthony Newman RN Unavailable Unavailable Wilma Mckeon Unavailable Unavailable Jayla Wise Unavailable Unavailable Enoch Hawkins RN 2 Unavailable Daysi Pretty MA Unavailable Unavailable Fortino Hamm MD Unavailable Farhad Silva JOURNEYMAN PIPE FITTER Unavailable Tonia David MD Unavailable Unavailable Josué Arellano MD Unavailable Nancy Garner MD Unavailable Reason for Visit * Reason Comments Other Pt status Encounter Details Date Type Department Care Team Description 08/13/2017 [facility] Doug [facility]y, [place] Other (Pt status) Transplantation-Liver Transplant Hep [address] [facility] [place] [address] Social History Tobacco Use Types [...] encounter Miscellaneous Notes * Addendum Note - Doug Doty RN - 08/13/2017 3:19 PM CDT Addended by: DOUG DOTY on: 08/13/2017 03:19 PM Modules accepted: Orders * Telephone Encounter - Doug Doty RN - 08/13/2017 3:15 PM CDT called and confirmed IS dosages. FK 1mg BID, Everolimus 1.5mg BID. Pt currently admitted in [facility] in [place], [place]. Being tested for possible TB. * Telephone Encounter - Doug Doty RN - 08/13/2017 10:13 AM CDT Received phone call from physician at [facility] in [place], [place] regarding pt and multiple PNA's. Per physician they are referring to Pulmonology and getting a bronhcoscopy. Asking if we recommend anything else. Informed we were waiting on recent IS levels to see if we need to adjust. Physician was not aware pt was on both FK and Everolimus. Stated they only bridget a FK level but will send Everolimus as well. This NC attempted to contact pt to verify medications. LVM and requested call back. in this encounter Plan of Treatment Not on fileas of this encounter Visit Diagnoses Not on filein this encounter
--- OUTSIDE RECORDS SUMMARY | 2017-09-19 06:58 | XMS REPORT | Encounter Summary ---
Author Author [facility] Organization [facility] Address Unknown Phone Unavailable Care Team Providers Care Street Railway Line Installer Name Role Phone Regan Brock MD Unavailable Prerna Gray APRN Unavailable Micah Pizano MD Unavailable Rudy Almendarez MD Unavailable Unavailable Yamile Rodriguez PhD Unavailable Arpan Blakely MD Unavailable Lida Yang Unavailable Doctor, Miscellaneous Unavailable Unavailable Josy Sampson MD Unavailable Guille Han MD Unavailable Miranda Gomez MANAGER GAMING Unavailable Unavailable Rehana Arellano RN Unavailable Unavailable Hetal Mark MD Unavailable Luigi Callahan MD Unavailable Unavailable Bridget Yip MD Unavailable Harini Perez MANAGER GAMING Unavailable Unavailable Monalisa Cardoza MANAGER GAMING Unavailable Rah Franks MD Unavailable Mitul Rai MD Unavailable Monalisa Gtz MANAGER GAMING Unavailable Fabiana Rodriguez MD Unavailable Jared Adam MD Unavailable Thierry Garduno MD Unavailable Regan Gamble MD Unavailable Laly Ceja MD Unavailable Unavailable Faith Fields MD Unavailable Samantha Pruitt MD Unavailable Unavailable Андрей Griffin MD Unavailable Adam Paz MD Unavailable Jennie Bill MD Unavailable Delmy Rodriguez MD Unavailable Unavailable Zo FryN Unavailable Unavailable Kev Peters RN Unavailable Unavailable Zoila Peres Unavailable Unavailable Jhonny Archer MD Unavailable Mike Anderson Unavailable Unavailable Elizabeth Goetz Unavailable Unavailable Wilma Masterson Unavailable Unavailable Minerva Lima Unavailable Unavailable Elva Ceja RN Unavailable Unavailable Anthony Newman RN Unavailable Unavailable Wilma Mckeon Unavailable Unavailable Jayla Wise Unavailable Unavailable Enoch Hawkins RN 2 Unavailable Daysi Pretty MA Unavailable Unavailable Fortino Hamm MD Unavailable Farhad Silva MANAGER GAMING Unavailable Tonia David MD Unavailable Unavailable Josué Arellano MD Unavailable Nancy Garner MD Unavailable Encounter Details Date Type Department Care Team Description 08/12/2017 [facility] Radiology [address] [place] [address] Social History Tobacco Use Types Packs/Day Years [...] Results * GENERAL RAD CHEST EXTERNAL IMAGING (08/12/2017) Narrative This order has been auto finalized and does not contain a result. in this encounter Visit Diagnoses Diagnosis Diagnosis unknown Other unknown and unspecified cause of morbidity or mortality
--- OUTSIDE RECORDS SUMMARY | 2017-09-19 06:59 | XMS REPORT | Encounter Summary ---
Author Author [facility] Organization [facility] Address Unknown Phone Unavailable Care Team Providers Care Family Day Care Worker Name Role Phone Regan Brock MD Unavailable Prerna Gray APRN Unavailable Micah Pizano MD Unavailable Rudy Almendarez MD Unavailable Unavailable Yamile Rodriguez PhD Unavailable Arpan Blakely MD Unavailable Lida Yang Unavailable Doctor, Miscellaneous Unavailable Unavailable Josy Sampson MD Unavailable Guille Han MD Unavailable Miranda Gomez CLINICAL TRIALS DATA COORDINATOR Unavailable Unavailable Rehana Arellano RN Unavailable Unavailable Hetal Mark MD Unavailable Luigi Callahan MD Unavailable Unavailable Bridget Yip MD Unavailable Harini Perez CLINICAL TRIALS DATA COORDINATOR Unavailable Unavailable Monalisa Cardoza CLINICAL TRIALS DATA COORDINATOR Unavailable Rah Franks MD Unavailable Mitul Rai MD Unavailable Monalisa Gtz CLINICAL TRIALS DATA COORDINATOR Unavailable Fabiana Rodriguez MD Unavailable Jared Adam MD Unavailable Thierry Garduno MD Unavailable Regan Gamble MD Unavailable Laly Ceja MD Unavailable Unavailable Faith Fields MD Unavailable Samantha Pruitt MD Unavailable Unavailable Андрей Griffin MD Unavailable Adam Pza MD Unavailable Jennie Bill MD Unavailable Delmy Rodriguez MD Unavailable Unavailable Zo FryN Unavailable Unavailable Kev Peters RN Unavailable Unavailable Zoila Peres Unavailable Unavailable Johnny Arhcer MD Unavailable Mike Anderson Unavailable Unavailable Elizabeth Goetz Unavailable Unavailable Wilma Masterson Unavailable Unavailable Minerva Lima Unavailable Unavailable Elva Ceja RN Unavailable Unavailable Anthony Newman RN Unavailable Unavailable Wilma Mckeon Unavailable Unavailable Jayla Wise Unavailable Unavailable Enoch Hawkins RN 2 Unavailable Daysi Pretty MA Unavailable Unavailable Fortino Hamm MD Unavailable Farhad Silva CLINICAL TRIALS DATA COORDINATOR Unavailable Tonia David MD Unavailable Unavailable Josué Arellano MD Unavailable Nancy Garner MD Unavailable Encounter Details Date Type Department Care Team Description 08/09/2017 [facility] Radiology [address] [facility] [address] [place] [address] Social History Tobacco Use Types Packs/Day Years [...] Results * GENERAL RAD CHEST EXTERNAL IMAGING (08/09/2017 12:15 AM) Narrative This order has been auto finalized and does not contain a result. in this encounter Visit Diagnoses Diagnosis Diagnosis unknown Other unknown and unspecified cause of morbidity or mortality
--- OUTSIDE RECORDS SUMMARY | 2017-09-19 06:59 | XMS REPORT | Encounter Summary ---
Author Author [facility] Organization [facility] Address Unknown Phone Unavailable Care Team Providers Care Coating And Baking Operator Name Role Phone Regan Brock MD Unavailable Prerna Gray APRN Unavailable Micah Pizano MD Unavailable Rudy Almendarez MD Unavailable Unavailable Yamile Rodriguez PhD Unavailable Arpan Blakely MD Unavailable Lida Yang Unavailable Doctor, Miscellaneous Unavailable Unavailable Josy Sampson MD Unavailable Guille Han MD Unavailable Miranda Gomez ARTIFICIAL FLOWER MAKER Unavailable Unavailable Rehana Arellano RN Unavailable Unavailable Hetal Mark MD Unavailable Luigi Callahan MD Unavailable Unavailable Bridget Yip MD Unavailable Harini Perez ARTIFICIAL FLOWER MAKER Unavailable Unavailable Monalisa Cardoza ARTIFICIAL FLOWER MAKER Unavailable Rah Franks MD Unavailable Mitul Rai MD Unavailable Monalisa Gtz ARTIFICIAL FLOWER MAKER Unavailable Fabiana Rodriguez MD Unavailable Jared [...] Unavailable Fortino Hamm MD Unavailable Farhad Silva ARTIFICIAL FLOWER MAKER Unavailable Tonia David MD Unavailable Unavailable Josué Arellano MD Unavailable Nancy Garner MD Unavailable Encounter Details Date Type Department Care Team Description 08/03/2017 [facility] Radiology [address] [facility] [address] [place] [address] Social History Tobacco Use Types Packs/Day Years [...] fileas of this encounter Results * CT ABDOMEN EXTERNAL IMAGING (08/03/2017) Narrative This order has been auto finalized and does not contain a result. in this encounter Visit Diagnoses Diagnosis Diagnosis unknown Other unknown and unspecified cause of morbidity or mortality
--- OUTSIDE RECORDS SUMMARY | 2017-09-19 06:59 | XMS REPORT | Encounter Summary ---
Author Author [facility] Organization [facility] Address Unknown Phone Unavailable Care Team Providers Care Ornamental Rail Installer Name Role Phone Regan Brock MD Unavailable Prerna Gray APRN Unavailable Micah Pizano MD Unavailable Rudy Almendarez MD Unavailable Unavailable Yamile Rodriguez PhD Unavailable Arpan Blakely MD Unavailable Lida Yang Unavailable Doctor, Miscellaneous Unavailable Unavailable Josy Sampson MD Unavailable Guille Han MD Unavailable Miranda Gomez RECRUITER MANAGER Unavailable Unavailable Rehana Arellano RN Unavailable Unavailable Hetal Mark MD Unavailable Luigi Callahan MD Unavailable Unavailable Bridget Yip MD Unavailable Harini Perez RECRUITER MANAGER Unavailable Unavailable Monalisa Cardoza RECRUITER MANAGER Unavailable Rah Franks MD Unavailable Mitul Rai MD Unavailable Monalisa Gtz RECRUITER MANAGER Unavailable Fabiana Rodriguez MD Unavailable Jared Adam MD Unavailable Thierry Garduno MD Unavailable Regan Gamble MD Unavailable Laly Ceja MD Unavailable Unavailable Faith Fields MD Unavailable Samantha Pruitt MD Unavailable Unavailable Андрей Griffin MD Unavailable Adam Paz MD Unavailable Jennie Bill MD Unavailable Delmy Rodriguez MD Unavailable Unavailable Zo Fyr BSN Unavailable Unavailable Kev Peters RN Unavailable [...] Unavailable Fortino Hamm MD Unavailable Farhad Silva RECRUITER MANAGER Unavailable Tonia David MD Unavailable Unavailable Josué Arellano MD Unavailable Nancy Garner MD Unavailable Reason for Visit * Reason Comments Labs Only IS levels Encounter Details Date Type Department Care Team Description 07/30/2017 Telephone Center for Kev Peters, RN Labs Only (IS levels) Transplantation-Liver Transplant Hep [address] [facility] [place], [place] [id number] Social History Tobacco Use Types Packs/Day Years [...] Telephone Encounter - Kev Peters RN - 07/30/2017 2:47 PM GOLF COURSE PATROLLER Spoke with pt's and confirmed he is still admitted at [facility] in [place], [place]. Contacted facility and requested to speak with RN caring for pt. RN directed this NC to speak with hospitalist who was paged. Will request for an everolimus and tacrolimus level be drawn while inpt to determine if pt is over immunosuppressed. in this encounter Plan of Treatment Not on fileas of this encounter Visit Diagnoses Not on filein this encounter
--- OUTSIDE RECORDS SUMMARY | 2017-09-19 06:59 | XMS REPORT | Encounter Summary ---
Author Author [facility] Organization [facility] Address Unknown Phone Unavailable Care Team Providers Care Dairy Manager Name Role Phone Regan Brock MD Unavailable Prerna Gray APRN Unavailable Micah Pizano MD Unavailable Rudy Almendarez MD Unavailable Unavailable Yamile Rodriguez PhD Unavailable Arpan Blakely MD Unavailable Lida Yang Unavailable Doctor, Miscellaneous Unavailable Unavailable Josy Sampson MD Unavailable Guille Han MD Unavailable Miranda Gomez LABEL DRIER Unavailable Unavailable Rehana Arellano RN Unavailable Unavailable Hetal Mark MD Unavailable Luigi Callahan MD Unavailable Unavailable Bridget Yip MD Unavailable Harini Perez LABEL DRIER Unavailable Unavailable Mnoalisa Cardoza LABEL DRIER Unavailable Rah Franks MD Unavailable Mitul Rai MD Unavailable Monalisa Gtz LABEL DRIER Unavailable Fabiana Rodriguez MD Unavailable Jared Adam [...] Unavailable Fortino Hamm MD Unavailable Farhad Silva LABEL DRIER Unavailable Tonia David MD Unavailable Unavailable Josué Arellano MD Unavailable Nancy Garner MD Unavailable Encounter Details Date Type Department Care Team Description 08/03/2017 [facility] Radiology [address] [facility] [address] [place] [address] Social History Tobacco Use Types Packs/Day Years [...]
--- OUTSIDE RECORDS SUMMARY | 2017-09-19 06:59 | XMS REPORT | Encounter Summary ---
Author Author [facility] Organization [facility] Address Unknown Phone Unavailable Care Team Providers Care Accounts Receivable Representative Name Role Phone Regan Brock MD Unavailable Prerna Gray APRN Unavailable Micah Pizano MD Unavailable Rudy Almendarez MD Unavailable Unavailable Yamile Rodriguez PhD Unavailable Arpan Blakely MD Unavailable Lida Yang Unavailable Doctor, Miscellaneous Unavailable Unavailable Josy Sampson MD Unavailable Guille Han MD Unavailable Miranda Gomez GROCERY SUPERVISOR Unavailable Unavailable Rehana Arellano RN Unavailable Unavailable Hetal Mark MD Unavailable Luigi Callahan MD Unavailable Unavailable Bridget Yip MD Unavailable Harini Perez GROCERY SUPERVISOR Unavailable Unavailable Monalisa Cardoza GROCERY SUPERVISOR Unavailable Rah Franks MD Unavailable Mitul Rai MD Unavailable Monalisa Gtz GROCERY SUPERVISOR Unavailable Fabiana Rodriguez MD Unavailable Jared [...] Unavailable Fortino Hamm MD Unavailable Farhad Silva GROCERY SUPERVISOR Unavailable Tonia David MD Unavailable Unavailable Josué Arellano MD Unavailable Nancy Garner MD Unavailable Encounter Details Date Type Department Care Team Description 08/02/2017 [facility] Radiology [address] [facility] [address] [place] [address] Social History Tobacco Use Types Packs/Day Years [...] Results * GENERAL RAD CHEST EXTERNAL IMAGING (08/02/2017) Narrative This order has been auto finalized and does not contain a result. in this encounter Visit Diagnoses Diagnosis Diagnosis unknown Other unknown and unspecified cause of morbidity or mortality
--- OUTSIDE RECORDS SUMMARY | 2017-09-19 06:59 | XMS REPORT | Encounter Summary ---
Author Author [facility] Organization [facility] Address Unknown Phone Unavailable Care Team Providers Care Financial Aid Officer Name Role Phone Regan Brock MD Unavailable Prerna Gray APRN Unavailable Micah Pizano MD Unavailable Rudy Almendarez MD Unavailable Unavailable Yamile Rodriguez PhD Unavailable Arpan Blakely MD Unavailable Lida Yang Unavailable Doctor, Miscellaneous Unavailable Unavailable Josy Sampson MD Unavailable Guille Han MD Unavailable Miranda Gomez MOBILE SALES ASSISTANT Unavailable Unavailable Rehana Arellano RN Unavailable Unavailable Hetal Mark MD Unavailable Luigi Callahan MD Unavailable Unavailable Bridget Yip MD Unavailable Harini Perez MOBILE SALES ASSISTANT Unavailable Unavailable Monalisa Cardoza MOBILE SALES ASSISTANT Unavailable Rah Franks MD Unavailable Mitul Rai MD Unavailable Monalisa Gtz MOBILE SALES ASSISTANT Unavailable Fabiana Rodriguez MD Unavailable Jared [...] Unavailable Fortino Hamm MD Unavailable Farhad Silva MOBILE SALES ASSISTANT Unavailable Tonia David MD Unavailable Unavailable Josué Arellano MD Unavailable Nancy Garner MD Unavailable Encounter Details Date Type Department Care Team Description 08/06/2017 [facility] Radiology [address] [facility] [address] [place] [address] Social History Tobacco Use Types Packs/Day Years [...] Results * GENERAL RAD CHEST EXTERNAL IMAGING (08/06/2017) Narrative This order has been auto finalized and does not contain a result. in this encounter Visit Diagnoses Diagnosis Diagnosis unknown Other unknown and unspecified cause of morbidity or mortality
--- OUTSIDE RECORDS SUMMARY | 2017-09-19 06:59 | XMS REPORT | Encounter Summary ---
Author Author [facility] Organization [facility] Address Unknown Phone Unavailable Care Team Providers Care Mill Controller Name Role Phone Regan Brock MD Unavailable Prerna Gray APRN Unavailable Micah Pizano MD Unavailable Rudy Almendarez MD Unavailable Unavailable Yamile Rodriguez PhD Unavailable Arpan Blakely MD Unavailable Lida Yang Unavailable Doctor, Miscellaneous Unavailable Unavailable Josy Sampson MD Unavailable Guille Han MD Unavailable Miranda Gomez BUSINESS PLANNER Unavailable Unavailable Rehana Arellano RN Unavailable Unavailable Hetal Mark MD Unavailable Luigi Callahan MD Unavailable Unavailable Bridget Yip MD Unavailable Harini Perez BUSINESS PLANNER Unavailable Unavailable Monalisa Cardoza BUSINESS PLANNER Unavailable Rah Franks MD Unavailable Mitul Rai MD Unavailable Monalisa Gtz BUSINESS PLANNER Unavailable Fabiana Rodriguez MD Unavailable Jared Adam [...] Unavailable Fortino Hamm MD Unavailable Farhad Silva BUSINESS PLANNER Unavailable Tonia David MD Unavailable Unavailable Josué Arellano MD Unavailable Nancy Garner MD Unavailable Encounter Details Date Type Department Care Team Description 08/09/2017 [facility] Radiology [address] [facility] [address] [place] [address] Social History Tobacco Use Types Packs/Day Years [...] Results * GENERAL RAD CHEST EXTERNAL IMAGING (08/09/2017) Narrative This order has been auto finalized and does not contain a result. in this encounter Visit Diagnoses Diagnosis Diagnosis unknown Other unknown and unspecified cause of morbidity or mortality
--- OUTSIDE RECORDS SUMMARY | 2017-09-19 07:00 | XMS REPORT | Encounter Summary ---
Author Author [facility] Organization [facility] Address Unknown Phone Unavailable Care Team Providers Care Sales Office Assistant Name Role Phone Regan Brock MD Unavailable Prerna Gray APRN Unavailable Micah Pizano MD Unavailable Rudy Almendarez MD Unavailable Unavailable Yamile Rodriguez PhD Unavailable Arpan Blakely MD Unavailable Lida Yang Unavailable Doctor, Miscellaneous Unavailable Unavailable Josy Sampson MD Unavailable Guille Han MD Unavailable Miranda Gomez WELLNESS NURSE RN Unavailable Unavailable Rehana Arellano RN Unavailable Unavailable Hetal Mark MD Unavailable Luigi Callahan MD Unavailable Unavailable Bridget Yip MD Unavailable Harini Perez WELLNESS NURSE RN Unavailable Unavailable Monalisa Cardoza WELLNESS NURSE RN Unavailable Rah Franks MD Unavailable Mitul Rai MD Unavailable Monalisa Gtz WELLNESS NURSE RN Unavailable Fabiana Rodriguez MD Unavailable Jared Adam [...] Unavailable Fortino Hamm MD Unavailable Farhad Silva WELLNESS NURSE RN Unavailable Tonia David MD Unavailable Unavailable Josué Arellano MD Unavailable Nancy Garner MD Unavailable Encounter Details Date Type Department Care Team Description 07/24/2017 [facility] Radiology [address] [facility] [address] [place] [address] Social History Tobacco Use Types Packs/Day Years [...]
--- OUTSIDE RECORDS SUMMARY | 2017-09-19 07:00 | XMS REPORT | Encounter Summary ---
Author Author [facility] Organization [facility] Address Unknown Phone Unavailable Care Team Providers Care Smash Hand Name Role Phone Regan Brock MD Unavailable Prerna Gray APRN Unavailable Micah Pizano MD Unavailable Rudy Almendarez MD Unavailable Unavailable Yamile Rodriguez PhD Unavailable Arpan Blakely MD Unavailable Lida Yang Unavailable Doctor, Miscellaneous Unavailable Unavailable Josy Sampson MD Unavailable Guille Han MD Unavailable Miranda Gomez PUBLIC INFORMATION RELATIONS MANAGER Unavailable Unavailable Rehana Arellano RN Unavailable Unavailable Hetal Mark MD Unavailable Luigi Callahan MD Unavailable Unavailable Bridget Yip MD Unavailable Harini Perez PUBLIC INFORMATION RELATIONS MANAGER Unavailable Unavailable Monalisa Cardoza PUBLIC INFORMATION RELATIONS MANAGER Unavailable Rah Franks MD Unavailable Mitul Ria MD Unavailable Monalisa Gtz PUBLIC INFORMATION RELATIONS MANAGER Unavailable Fabiana Rodriguez MD Unavailable Jared [...] Unavailable Fortino Hamm MD Unavailable Farhad Silva PUBLIC INFORMATION RELATIONS MANAGER Unavailable Tonia David MD Unavailable Unavailable Josué Arellano MD Unavailable Nancy Garner MD Unavailable Encounter Details Date Type Department Care Team Description 07/19/2017 [facility] Rebeca Baca MA Transplantation-Liver Transplant Hep [address] [facility] [place] [place] [address] Social History Tobacco Use Types Packs/Day Years [...] Rebeca Tatum MA - 07/19/2017 7:28 AM COKE PRODUCTION HEATER Request for most recent OV note, labs, and procedure reports faxed to Dr. Lin's office f)[phone]. in this encounter Plan of Treatment Not on fileas of this encounter Visit Diagnoses Not on filein this encounter
--- OUTSIDE RECORDS SUMMARY | 2017-09-19 07:00 | XMS REPORT | Encounter Summary ---
Author Author [facility] Organization [facility] Address Unknown Phone Unavailable Care Team Providers Care Branch Office Administrator Name Role Phone Regan Brock MD Unavailable Prerna Gray APRN Unavailable Micah Pizano MD Unavailable Rudy Almendarez MD Unavailable Unavailable Yamile Rodriguez PhD Unavailable Arpan Blakely MD Unavailable Lida Yang Unavailable Doctor, Miscellaneous Unavailable Unavailable Josy Sampson MD Unavailable Guille Han MD Unavailable Miranda Gomez SCREENER AND BLENDER Unavailable Unavailable Rehana Arellano RN Unavailable Unavailable Hetal Mark MD Unavailable Luigi Callahan MD Unavailable Unavailable Bridget Yip MD Unavailable Harini Perez SCREENER AND BLENDER Unavailable Unavailable Monalisa Cardoza SCREENER AND BLENDER Unavailable Rah Franks MD Unavailable Mitul Rai MD Unavailable Monalisa Gtz SCREENER AND BLENDER Unavailable Fabiana Rodriguez MD Unavailable Jared Adam [...] Unavailable Fortino Hamm MD Unavailable Farhad Silva SCREENER AND BLENDER Unavailable Tonia David MD Unavailable Unavailable Josué Arellano MD Unavailable Nancy Garner MD Unavailable Encounter Details Date Type Department Care Team Description 07/18/2017 [facility] Radiology [address] [facility] 2ND [place] [address] Social History Tobacco Use Types Packs/Day Years [...]
--- OUTSIDE RECORDS SUMMARY | 2017-09-19 07:00 | XMS REPORT | Encounter Summary ---
Author Author [facility] Organization [facility] Address Unknown Phone Unavailable Care Team Providers Care Research Biologist Name Role Phone Regan Brock MD Unavailable Prerna Gray APRN Unavailable Micah Pizano MD Unavailable Rudy Almendarez MD Unavailable Unavailable Yamile Rodriguez PhD Unavailable Arpan Blakely MD Unavailable Lida Yang Unavailable Doctor, Miscellaneous Unavailable Unavailable Josy Sampson MD Unavailable Guille Han MD Unavailable Miranda Gomez PAPERHANGER PIPE Unavailable Unavailable Rehana Arellano RN Unavailable Unavailable Hetal Mark MD Unavailable Luigi Callahan MD Unavailable Unavailable Bridget Yip MD Unavailable Harini Perez PAPERHANGER PIPE Unavailable Unavailable Monalisa Cardoza PAPERHANGER PIPE Unavailable Rah Franks MD Unavailable Mitul Rai MD Unavailable Monalisa Gtz PAPERHANGER PIPE Unavailable Fabiana Rodriguez MD Unavailable Jared Adam [...] Unavailable Anthony Newman RN Unavailable Unavailable Wilma Mcekon Unavailable Unavailable Jayla Wise Unavailable Unavailable Enoch Hawkins RN 2 Unavailable Daysi Pretty MA Unavailable Unavailable Fortino Hamm MD Unavailable Farhad Silva PAPERHANGER PIPE Unavailable Tonia David MD Unavailable Unavailable Josué Arellano MD Unavailable Nancy Garner MD Unavailable Reason for Visit * Reason Comments Other cancellation Encounter Details Date Type Department Care Team Description 07/24/2017 Telephone Center for Regan Brock MD Other (cancellation ) Transplantation-Liver [address] [facility] Transplant Hep [id number] [address] [place] [address] [facility] [phone] [place] [address] Social History Tobacco Use Types [...]
--- OUTSIDE RECORDS SUMMARY | 2017-09-19 07:00 | XMS REPORT | Encounter Summary ---
Author Author [facility] Organization [facility] Address Unknown Phone Unavailable Care Team Providers Care Grainer Machine Name Role Phone Regan Brock MD Unavailable Prerna Gray APRN Unavailable Micah Pizano MD Unavailable Rudy Almendarez MD Unavailable Unavailable Yamile Rodriguez PhD Unavailable Arpan Blakely MD Unavailable Lida Yang Unavailable Doctor, Miscellaneous Unavailable Unavailable Josy Sampson MD Unavailable Guille Han MD Unavailable Miranda Gomez SCRAP SAWYER Unavailable Unavailable Rehana Arellano RN Unavailable Unavailable Hetal Mark MD Unavailable Luigi Callahan MD Unavailable Unavailable Bridget Yip MD Unavailable Harini Perez SCRAP SAWYER Unavailable Unavailable Monalisa Cardoza SCRAP SAWYER Unavailable Rah Franks MD Unavailable Mitul Rai MD Unavailable Monalisa Gtz SCRAP SAWYER Unavailable Fabiana Rodriguez MD Unavailable Jared Adam [...] Unavailable Fortino Hamm MD Unavailable Farhad Silva SCRAP SAWYER Unavailable Tonia David MD Unavailable Unavailable Josué Arellano MD Unavailable Nancy Garner MD Unavailable Encounter Details Date Type Department Care Team Description 07/23/2017 [facility] Radiology [address] [facility] [address]ND [place] [address] Social History Tobacco Use Types Packs/Day Years [...]
--- OUTSIDE RECORDS SUMMARY | 2017-09-19 07:00 | XMS REPORT | Encounter Summary ---
Author Author [facility] Organization [facility] Address Unknown Phone Unavailable Care Team Providers Care Automotive Project Engineer Name Role Phone Regan Brock MD Unavailable Prerna Gray APRN Unavailable Micah Pizano MD Unavailable Rudy Almendarez MD Unavailable Unavailable Yamile Rodriguez PhD Unavailable Arpan Blakely MD Unavailable Lida Yang Unavailable Doctor, Miscellaneous Unavailable Unavailable Josy Sampson MD Unavailable Guille Han MD Unavailable Miranda Gomez ADMIN ASST Unavailable Unavailable Rehana Arellano RN Unavailable Unavailable Hetal Mark MD Unavailable Luigi Callahan MD Unavailable Unavailable Bridget Yip MD Unavailable Harini Perez ADMIN ASST Unavailable Unavailable Monalisa Cardoza ADMIN ASST Unavailable Rah Franks MD Unavailable Mitul Rai MD Unavailable Monalisa Gtz ADMIN ASST Unavailable Fabiana Rodriguez MD Unavailable Jared Adam [...] Unavailable Fortino Hamm MD Unavailable Farhad Silva ADMIN ASST Unavailable Tonia David MD Unavailable Unavailable Josué Arellano MD Unavailable Nancy Garner MD Unavailable Reason for Visit * Reason Comments Other call to [place] Encounter Details Date Type Department Care Team Description 07/24/2017 Telephone Center for Regan Brock MD Other (call to [place]) Transplantation-Liver [address] [facility] Transplant Hep [id number] [address] [facility] [address] [facility] [phone] [place] [address] Social History Tobacco Use Types [...]
--- OUTSIDE RECORDS SUMMARY | 2017-09-19 07:00 | XMS REPORT | Encounter Summary ---
Author Author [facility] Organization [facility] Address Unknown Phone Unavailable Care Team Providers Care Account Development Executive Name Role Phone Regan Brock MD Unavailable Prerna Gray APRN Unavailable Micah Pizano MD Unavailable Rudy Almendarez MD Unavailable Unavailable Yamile Rodriguez PhD Unavailable Arpan Blakely MD Unavailable Lida Yang Unavailable Doctor, Miscellaneous Unavailable Unavailable Josy Sampson MD Unavailable Guille Han MD Unavailable Miranda Gomez TOWER SUPERVISOR Unavailable Unavailable Rehana Arellano RN Unavailable Unavailable Hetal Mark MD Unavailable Luigi Callahan MD Unavailable Unavailable Bridget Yip MD Unavailable Harini Perez TOWER SUPERVISOR Unavailable Unavailable Monalisa Cardoza TOWER SUPERVISOR Unavailable Rah Franks MD Unavailable Mitul Rai MD Unavailable Monalisa Gtz TOWER SUPERVISOR Unavailable Fabiana Rodriguez MD Unavailable Jared [...] Unavailable Fortino Hamm MD Unavailable Farhad Silva TOWER SUPERVISOR Unavailable Tnoia David MD Unavailable Unavailable Josué Arellano MD Unavailable Nancy Garner MD Unavailable Encounter Details Date Type Department Care Team Description 07/26/2017 [facility] Radiology [address] [facility] 2ND [place] [address] Social History Tobacco Use Types Packs/Day Years [...]
--- OUTSIDE RECORDS SUMMARY | 2017-09-19 07:01 | XMS REPORT | Encounter Summary ---
Author Author [facility] Organization [facility] Address Unknown Phone Unavailable Care Team Providers Care Tying Machine Operator Name Role Phone Regan Brock MD Unavailable Prerna Gray APRN Unavailable Micah Pizano MD Unavailable Rudy Almendarez MD Unavailable Unavailable Yamile Rodriguez PhD Unavailable Arpan Blakely MD Unavailable Lida Yang Unavailable Doctor, Miscellaneous Unavailable Unavailable Josy Sampson MD Unavailable Guille Han MD Unavailable Miranda Gomez MAT INSPECTOR Unavailable Unavailable Rehana Arellano RN Unavailable Unavailable Hetal Mark MD Unavailable Luigi Callahan MD Unavailable Unavailable Bridget Yip MD Unavailable Harini Perez MAT INSPECTOR Unavailable Unavailable Monalisa Cardoza MAT INSPECTOR Unavailable Rah Franks MD Unavailable Mitul Rai MD Unavailable Monalisa Gtz MAT INSPECTOR Unavailable Fabiana Rodriguez MD Unavailable Jared Adam [...] Unavailable Fortino Hamm MD Unavailable Farhad Silva MAT INSPECTOR Unavailable Tonia David MD Unavailable Unavailable Josué Arellano MD Unavailable Nancy Garner MD Unavailable Reason for Visit * Reason Comments Other current admission Encounter Details Date Type Department Care Team Description 07/05/2017 Telephone Center for Kev Peters, KIERSTEN Other (current admission) Transplantation-Liver Transplant Hep [address] [facility] [place] [address] Social History Tobacco Use Types [...] Rebeca Tatum MA - 07/06/2017 11:35 AM HEAD CHEF Request for current hospitalization records faxed to HIM at [facility] B). * Telephone Encounter - Kev Peters RN - 07/05/2017 3:52 PM HEAD CHEF Pt called reporting he is currently admitted at [facility] in [place], [place]. Pt reports he is currently admitted for a PNA and "urinary issues". in this encounter Plan of Treatment Not on fileas of this encounter Visit Diagnoses Not on filein this encounter
--- OUTSIDE RECORDS SUMMARY | 2017-09-19 07:01 | XMS REPORT | Encounter Summary ---
Author Author [facility] Organization [facility] Address Unknown Phone Unavailable Care Team Providers Care Purchase Request Editor Name Role Phone Regan Brock MD Unavailable Prerna Gray APRN Unavailable Micah Pizano MD Unavailable Rudy Almendarez MD Unavailable Unavailable Yamile Rodriguez PhD Unavailable Arpan Blakely MD Unavailable Lida Yang Unavailable Doctor, Miscellaneous Unavailable Unavailable Josy Sampson MD Unavailable Guille Han MD Unavailable Miranda Gomez LABORER Unavailable Unavailable Rehana Arellano RN Unavailable Unavailable Hetal Mark MD Unavailable Luigi Callahan MD Unavailable Unavailable Bridget Yip MD Unavailable Harini Perez LABORER Unavailable Unavailable Monalisa Cardoza LABORER Unavailable Rah Franks MD Unavailable Mitul Rai MD Unavailable Monalisa Gtz LABORER Unavailable Fabiana Rodriguez MD Unavailable Jared Adam [...] Unavailable Fortino Hamm MD Unavailable Farhad Silva LABORER Unavailable Tonia David MD Unavailable Unavailable Josué Arellano MD Unavailable Nancy Garner MD Unavailable Encounter Details Date Type Department Care Team Description 06/28/2017 [facility] Radiology [address] [facility] 2ND [place] [address] Social History Tobacco Use Types Packs/Day Years [...] mouth 30 Tab 0 06/03/[address] TAKE ONE TABLET BY MOUTH [...]
--- OUTSIDE RECORDS SUMMARY | 2017-09-19 07:01 | XMS REPORT | Encounter Summary ---
Author Author [facility] Organization [facility] Address Unknown Phone Unavailable Care Team Providers Care Licensed Retail Supervisor Name Role Phone Regan Brock MD Unavailable Prerna Gray APRN Unavailable Micah Pizano MD Unavailable Rudy Almendarez MD Unavailable Unavailable Yamile Rodriguez PhD Unavailable Arpan Blakely MD Unavailable Lida Yang Unavailable Doctor, Miscellaneous Unavailable Unavailable Josy Sampson MD Unavailable Guille Han MD Unavailable Miranda Gomez BELL CLERK Unavailable Unavailable Rehana Arellano RN Unavailable Unavailable Hetal Mark MD Unavailable Luigi Callahan MD Unavailable Unavailable Bridget Yip MD Unavailable Harini Perez BELL CLERK Unavailable Unavailable Monalisa Cardoza BELL CLERK Unavailable Rah Franks MD Unavailable Mitul Rai MD Unavailable Monalisa Gtz BELL CLERK Unavailable Fabiana Rodriguez MD Unavailable Jared Adam [...] Unavailable Fortino Hamm MD Unavailable Farhad Silva BELL CLERK Unavailable Tonia David MD Unavailable Unavailable Josué Arellano MD Unavailable Nancy Garner MD Unavailable Encounter Details Date Type Department Care Team Description 07/05/2017 [facility] Radiology [address] [facility] 2ND [place] [address] Social History Tobacco Use Types Packs/Day Years [...] of this encounter Results * [facility] (07/05/2017) Narrative This order has been auto finalized and does not contain a result. in this encounter Visit Diagnoses Diagnosis Diagnosis unknown Other unknown and unspecified cause of morbidity or mortality
--- OUTSIDE RECORDS SUMMARY | 2017-09-19 07:01 | XMS REPORT | Encounter Summary ---
Author Author [facility] Organization [facility] Address Unknown Phone Unavailable Care Team Providers Care Pants Busheler Name Role Phone Regan Brock MD Unavailable Prerna Gray APRN Unavailable Micah Pizano MD Unavailable Rudy Almendarez MD Unavailable Unavailable Yamile Rodriguez PhD Unavailable Arpan Blakely MD Unavailable Lida Yang Unavailable Doctor, Miscellaneous Unavailable Unavailable Josy Sampson MD Unavailable Guille Han MD Unavailable Miranda Gomez WINE CONSULTANT Unavailable Unavailable Rehana Arellano RN Unavailable Unavailable Hetal Mark MD Unavailable Luigi Callahan MD Unavailable Unavailable Bridget Yip MD Unavailable Harini Perez WINE CONSULTANT Unavailable Unavailable Monalisa Cardoza WINE CONSULTANT Unavailable Rah Franks MD Unavailable Mitul Rai MD Unavailable Monalisa Gtz WINE CONSULTANT Unavailable Fabiana Rodriguez MD Unavailable Jared [...] Unavailable Fortino Hamm MD Unavailable Farhad Silva WINE CONSULTANT Unavailable Tonia David MD Unavailable Unavailable Josué Arellano MD Unavailable Nancy Garner MD Unavailable Encounter Details Date Type Department Care Team Description 07/05/2017 [facility] Radiology [address] [facility] 2ND [place] [address] Social History Tobacco Use Types Packs/Day Years [...] fileas of this encounter Results * CT [facility] EXTERNAL IMAGING (07/05/2017 12:15 AM) Narrative This order has been auto finalized and does not contain a result. in this encounter Visit Diagnoses Diagnosis Diagnosis unknown Other unknown and unspecified cause of morbidity or mortality
--- OUTSIDE RECORDS SUMMARY | 2017-09-19 07:01 | XMS REPORT | Encounter Summary ---
Author Author [facility] Organization [facility] Address Unknown Phone Unavailable Care Team Providers Care White Kid Buffer Name Role Phone Regan Brock MD Unavailable Prerna Gray APRN Unavailable Micah Pizano MD Unavailable Rudy Almendarez MD Unavailable Unavailable Yamile Rodriguez PhD Unavailable Arpan Blakely MD Unavailable Lida Yang Unavailable Doctor, Miscellaneous Unavailable Unavailable Josy Sampson MD Unavailable Guille Han MD Unavailable Miranda Gomez BRAND ENGINEER Unavailable Unavailable Rehana Arellano RN Unavailable Unavailable Hetal Mark MD Unavailable Luigi Callahan MD Unavailable Unavailable Bridget Yip MD Unavailable Harini Perez BRAND ENGINEER Unavailable Unavailable Monalisa Cardoza BRAND ENGINEER Unavailable Rah Franks MD Unavailable Mitul Rai MD Unavailable Monalisa Gtz BRAND ENGINEER Unavailable Fabiana Rodriguez MD Unavailable Jared [...] Unavailable Fortino Hamm MD Unavailable Farhad Silva BRAND ENGINEER Unavailable Tonia David MD Unavailable Unavailable Josué Arellano MD Unavailable Nancy Garner MD Unavailable Reason for Visit * Reason Comments Medication Question Encounter Details Date Type Department Care Team Description 07/12/2017 Telephone Center for Regan Brock MD Medication Question Transplantation-Liver [address] [facility] Transplant Hep [id number] [address] [place] [address] [facility] [phone] [place] [address] Social History Tobacco Use Types [...] Kev Peters RN - 07/12/2017 1:33 PM FUNERAL SERVICE APPRENTICE Returned call. Gave verbal okay for pt to dar[facility]. in this encounter Plan of Treatment Not on fileas of this encounter Visit Diagnoses Not on filein this encounter
--- OUTSIDE RECORDS SUMMARY | 2017-09-19 07:01 | XMS REPORT | Encounter Summary ---
Author Author [facility] Organization [facility] Address Unknown Phone Unavailable Care Team Providers Care High Lift Driver Name Role Phone Regan Brock MD Unavailable Prerna Gray APRN Unavailable Micah Pizano MD Unavailable Rudy Almendarez MD Unavailable Unavailable Yamile Rodriguez PhD Unavailable Arpan Blakely MD Unavailable Lida Yang Unavailable Doctor, Miscellaneous Unavailable Unavailable Josy Sampson MD Unavailable Guille Han MD Unavailable Miranda Gomez ASSEMBLY MACHINE TENDER Unavailable Unavailable Rehana Arellano RN Unavailable Unavailable Hetal Mark MD Unavailable Luigi Callahan MD Unavailable Unavailable Bridget Yip MD Unavailable Harini Perez ASSEMBLY MACHINE TENDER Unavailable Unavailable Monalisa Cardoza ASSEMBLY MACHINE TENDER Unavailable Rah Franks MD Unavailable Mitul Rai MD Unavailable Monalisa Gtz ASSEMBLY MACHINE TENDER Unavailable Fabiana Rodriguez MD Unavailable Jared Adam [...] Unavailable Fortino Hamm MD Unavailable Farhad Silva ASSEMBLY MACHINE TENDER Unavailable Tonia David MD Unavailable Unavailable Josué Arellano MD Unavailable Nancy Garner MD Unavailable Reason for Visit * Reason Comments Appointment Request Urgent Appt Encounter Details Date Type Department Care Team Description 07/17/2017 Telephone Center for Regan Brock MD Appointment Request Transplantation-Liver [address] [facility] (Urgent Appt) Transplant Hep [id number] [address] [place] [address] [facility] [phone] [place] [address] Social History Tobacco Use Types [...] - Isela Joya - 07/18/2017 1:29 PM TRANSPORTATION CLERK Called pt scheduled f/u with Boy for July 25, 2017 @ 8:40am. in this encounter Plan of Treatment Not on fileas of this encounter Visit Diagnoses Not on filein this encounter
--- OUTSIDE RECORDS SUMMARY | 2017-09-19 07:01 | XMS REPORT | Encounter Summary ---
Author Author [facility] Organization [facility] Address Unknown Phone Unavailable Care Team Providers Care Digital Media Coordinator Name Role Phone Regan Brock MD Unavailable Prerna Gray APRN Unavailable Micah Pizano MD Unavailable Rudy Almendarez MD Unavailable Unavailable Yamile Rodriguez PhD Unavailable Arpan Blakely MD Unavailable Lida Yang Unavailable Doctor, Miscellaneous Unavailable Unavailable Josy Sampson MD Unavailable Guille Han MD Unavailable Miranda Gomez PIE BAKERY LABORER Unavailable Unavailable Rehana Arellano RN Unavailable Unavailable Hetal Mark MD Unavailable Luigi Callahan MD Unavailable Unavailable Bridget Yip MD Unavailable Harini Perez PIE BAKERY LABORER Unavailable Unavailable Monalisa Cardoza PIE BAKERY LABORER Unavailable Rah Franks MD Unavailable Mitul Rai MD Unavailable Monalisa Gtz PIE BAKERY LABORER Unavailable Fabiana Rodriguez MD Unavailable Jared [...] Unavailable Fortino Hamm MD Unavailable Farhad Silva PIE BAKERY LABORER Unavailable Tonia David MD Unavailable Unavailable Josué Arellano MD Unavailable Nancy Garner MD Unavailable Reason for Visit * Reason Comments Labs Only Encounter Details Date Type Department Care Team Description 06/26/2017 Telephone Center Gregoria Ballesteros, KIERSTEN Labs Only Transplantation-Liver Transplant Hep [address] [facility] [place] [address] Social History Tobacco Use Types Packs/Day Years [...] Gregoria Núñez RN - 06/26/2017 11:33 AM ART APPRAISER Per Dr. Brock's note, the patient is instructed to repeat labs next week via his . He is instructed to call with any questions. in this encounter Plan of Treatment Not on fileas of this encounter Visit Diagnoses Not on filein this encounter
[2017-09-19] MEDS ORDERED: NS IV 1000 ML 1,000 ML ONE (07:17)
[2017-09-19] MEDS ORDERED: fentaNYL INJECTION 100 MCG/2 ML AMP ONE (07:19)
[2017-09-19] MEDS ORDERED: fentaNYL INJECTION 100 MCG/2 ML AMP IVP STA (07:24)
[2017-09-19] MEDS ORDERED: NS IV 1000 ML 1,000 ML IV ONE (07:24)
[2017-09-19 08:12] LABS: BASOPHILS % (AUTO) 0 % (0-10); EOSINOPHILS % (AUTO) 0 % (0-10); HEMATOCRIT 23 % (40-54); HEMOGLOBIN 7.2 G/DL (13.3-17.7); LYMPHOCYTES # (AUTO) 0.2 X 10^3 (1.0-4.0); LYMPHOCYTES % (AUTO) 2 % (12-44); MEAN CORPUSCULAR HEMOGLOBIN 26 PG (25-34); MEAN CORPUSCULAR HGB CONC 32 G/DL (32-36); MEAN CORPUSCULAR VOLUME 81 FL (80-99); MONOCYTES # (AUTO) 0.8 X 10^3 (0.0-1.0); MONOCYTES % (AUTO) 5 % (0-12); NEUTROPHILS # (AUTO) 14.5 X 10^3 (1.8-7.8); NEUTROPHILS % (AUTO) 93 % (42-75); PLATELET COUNT 350 10^3/uL (130-400); RED BLOOD COUNT 2.82 10^6/uL (4.35-5.85); RED CELL DISTRIBUTION WIDTH 17.5 % (10.0-14.5); WHITE BLOOD COUNT 15.6 10^3/uL (4.3-11.0)
[2017-09-19] MEDS ORDERED: HYDROmorphone 2 MG/ML VIAL (DILAUDID) IM STA (08:12)
[2017-09-19] MEDS ORDERED: ONDANSETRON 4 MG/2 ML (SDV) Z0FRAN ONE (08:15)
--- NOTE | 2017-09-19 08:24 | Diagnostic Imaging Report ---
INDICATION: Fever nausea with vomiting and diarrhea. Time of exam 8:09 AM Correlation is made with prior study 07/23/2017. The heart size is stable. Right upper lobe airspace consolidation persists and appears to be slightly worse when compared with the prior exam. The remaining lung thomason are clear. The pulmonary vascularity is normal. No effusion is identified. No pneumothorax is identified. IMPRESSION: Slight worsening of right upper lobe infiltrate when compared examination from 2 months earlier. Continued followup to confirm clearing is recommended. If this does not resolve, consideration should be given to repeating a chest CT with IV contrast to evaluate the mediastinum and right hilum for an obstructive process. Dictated by: Dictated on workstation # [id number]
[2017-09-19 08:32] LABS: ANISOCYTOSIS SLIGHT; BAND NEUTROPHILS 17 %; BASOPHILS % (MANUAL) 0 %; EOSINOPHILS % (MANUAL) 0 %; INR 1.6 (0.8-1.4); LYMPHOCYTES % (MANUAL) 1 %; MONOCYTES % (MANUAL) 1 %; NEUTROPHILS % (MANUAL) 81 %; PROTHROMBIN TIME PATIENT 19.1 SEC (12.2-14.7)
[2017-09-19 08:38] LABS: ALBUMIN 3.1 GM/DL (3.2-4.5); BILIRUBIN,TOTAL 0.5 MG/DL (0.1-1.0); CALCIUM 10.7 MG/DL (8.5-10.1); CREATININE SERUM 7.43 MG/DL (0.60-1.30); POTASSIUM 3.6 MMOL/L (3.6-5.0); TOTAL PROTEIN 5.9 GM/DL (6.4-8.2)
--- NOTE | 2017-09-19 09:02 | ED General ---
General Chief Complaint: Abdominal/GI Problems Stated Complaint: N,V,D Nursing Triage Note: ARRIVED VIA EMS FROM [facility]. N/V/D STARTING AT 0200. STATES HE HAD A TEMP AND TYLENOL WAS GIVEN AT 0200 TODAY. PT IS A DIALYSIS PT THAT RECIEVES ON MWF. Nursing Sepsis Screen: Possible Sepsis Risk Source of Information: Patient, Family Exam Limitations: No Limitations History of Present Illness Date Seen by Provider: Sep 19, 2017 Time Seen by Provider: 07:20 Initial Comments Here with report of nausea, vomiting, diarrhea, breathing problems and elevated temperature since 2 a.m. today. He was given Tylenol. Patient has end-stage renal disease and is due to have dialysis today. Also has history of liver failure and transplant. Patient has new diagnosis of metastatic lung cancer and I am not sure if this is primary or from another source. Just did have 2 weeks stand at for treatment for postobstructive pneumonia. He is currently off antibiotics. Arrives week with complaint of coughing and back pain as well as the vomiting and diarrhea. Family at bedside. They have begun the process of considering hospice care at this point and understand the grave nature of his underlying diagnoses. Timing/Duration: 4-6 Hours Severity: Moderate, Severe Associated Systoms: Cough, Fever/Chills, Nausea/Vomiting, Shortness of Air, Weakness Allergies and Home Medications Allergies Coded Allergies: No Known Drug Allergies (Unverified , 06/14/17) Home Medications Amlodipine Besylate 10 Mg Tablet, 10 MG PO DAILY, (Reported) LAST FILLED 11-09-14 #30 Aspirin 81 Mg Tablet.dr, 81 MG PO DAILY, (Reported) Atorvastatin Calcium 10 Mg Tablet, 10 MG PO DAILY, (Reported) Calcium Carbonate 600 Mg Tablet, 600 MG PO DAILY, (Reported) Cephalexin 500 Mg Capsule, 500 MG PO TID, (Reported) Doxazosin Mesylate 2 Mg Tablet, 2 MG PO DAILY, (Reported) Everolimus 0.5 Mg Tablet, 21 MG PO BID, (Reported) Niacinamide 500 Mg Tablet.er, 500 MG PO BID, (Reported) Pantoprazole Sodium 40 Mg Tablet.dr, 40 MG PO DAILY, (Reported) Tacrolimus 1 Mg Capsule, 1 MG PO BID, (Reported) Tamsulosin HCl 0.4 Mg Cap.er.24h, 0.4 MG PO DAILY, (Reported) Tramadol HCl 50 Mg Tablet, 50 MG PO DAILY, (Reported) Zinc Gluconate 50 Mg Tablet, 50 MG PO DAILY, (Reported) Patient Home Medication List Home Medication List Reviewed: Yes Review of Systems Constitutional: see HPI, chills, fever EENTM: no symptoms reported Respiratory: cough, short of breath Cardiovascular: edema; No palpitations Gastrointestinal: diarrhea, nausea, vomiting Genitourinary: see HPI, other (history of only scant urine output) Musculoskeletal: back pain, muscle pain Skin: no symptoms reported Psychiatric/Neurological: No Symptoms Reported All Other Systems Reviewed Negative Unless Noted: Yes Past Yctiznc-Voflbl-Bribce Hx Past Med/Social Hx: Reviewed Nursing Past Med/Soc Hx Patient Social History Alcohol Use: Denies Use Recreational Drug Use: No Smoking Status: Former Smoker Type Used: Cigarettes Former Smoker, Quit: Dec 27, 1995 Recent Foreign Travel: No Contact w/Someone Who Travel: No Recent Infectious Disease Expo: No Recent Hopitalizations: No Immunizations Up To Date Tetanus Booster (TDap): More than 5yrs Date of Pneumonia Vaccine: Feb 26, 2008 Date of Influenza Vaccine: Mar 12, 2017 Seasonal Allergies Seasonal Allergies: Yes Past Medical History Surgeries: Yes (SKIN CANCERS, HERNIA REPAIR; DIALYSIS SHUNT/AV-FISTULA RIGHT ARM) Abdominal, Dialysis, Joint Replacement, Liver Transplant, Orthopedic, Vascular Surgery Respiratory: Yes Sleep Apnea, COPD, Emphysema Currently Using CPAP: Yes Cardiac: Yes (STRESS TEST PRIOR TO LIVER TRANSPLANT) High Cholesterol, Hypertension Neurological: Yes Neuropathy Reproductive Disorders: No Sexually Transmitted Disease: No HIV/AIDS: No Genitourinary: Yes Renal Failure, Dialysis Gastrointestinal: Yes (S/P LIVER TRANSPLANT) Abdominal Hernia, Gastroesophageal Reflux, Liver Disease/Jaundice, Pancreatitis , Chronic Diarrhea, Esophageal Varices Musculoskeletal: Yes Arthritis, Chronic Back Pain Endocrine: Yes Diabetes, Non-Insulin dep Loss of Vision: Denies Hearing Impairment: Hard of Hearing Cancer: Yes (skin cancers removed on head, LUNG CA WITH POSSIBLE METS. ) Lung, Skin Did You Recieve Any Treatments: Yes What Type of Treatment Did You: Surgical Intervention Psychosocial: No Integumentary: No Blood Disorders: No Adverse Reaction/Blood Tranf: No Family Medical History Reviewed Nursing Family Hx Arthritis 19 MOTHER BREAST CANCER 19 MOTHER Cardiovascular disease 19 FATHER EMPHYSEMA 19 FATHER FH: breast cancer FH: emphysema No Pertinent Family Hx Physical Exam Vital Signs Vital Signs - First Documented 4/25/18 06:39 Temp 98.5 Pulse 115 Resp 18 B/P (MAP) 147/62 (90) Pulse Ox 88 O2 Delivery Room Air Capillary Refill : Less Than 3 Seconds General Appearance: No Apparent Distress, Chronically ill HEENT: PERRL/EOMI, Pharynx Normal Neck: Non Tender, Supple Respiratory: No Accessory Muscle Use, Crackles (bilateral bases) Cardiovascular: No Murmur, Tachycardia Gastrointestinal: Non Tender, Soft Back: Normal Inspection, No CVA Tenderness, No Vertebral Tenderness Extremity: Normal Range of Motion, Non Tender Neurologic/Psychiatric: Alert, Oriented x3 Skin: Normal Color, Warm/Dry Focused Exam Lactate Level 09/19/17 08:00: Lactic Acid Level 1.62 Lactic Acid Level Laboratory Tests Test 09/19/17 08:00 Lactic Acid Level 1.62 MMOL/L (0.50-2.00) Progress/Results/Core Measures Suspected Sepsis Recent Fever Within 48 Hours: Yes Infection Criteria Present: Suspected New Infection New/Unexplained Altered Menta: No Sepsis Screen: Possible Sepsis Risk SIRS Temperature:98.5 Pulse: 115 Respiratory Rate: 18 Laboratory Tests 09/19/17 08:00: White Blood Count 15.6H Blood Pressure 147 /62 Mean: 90 09/19/17 08:00: Lactic Acid Level 1.62 Laboratory Tests 09/19/17 08:00: Creatinine 7.43H, INR Comment 1.6H, Platelet Count 350, Total Bilirubin 0.5 Results/Orders Lab Results Laboratory Tests Test 09/19/17 08:00 Range/Units White Blood Count 15.6 H 4.3-11.0 10^3/uL Red Blood Count 2.82 L 4.35-5.85 10^6/uL Hemoglobin 7.2 L 13.3-17.7 G/DL Hematocrit 23 L 40-54 % Mean Corpuscular Volume 81 80-99 FL Mean Corpuscular Hemoglobin 26 25-34 PG Mean Corpuscular Hemoglobin Concent 32 32-36 G/DL Red Cell Distribution Width 17.5 H 10.0-14.5 % Platelet Count 350 130-400 10^3/uL Mean Platelet Volume 9.0 7.4-10.4 FL Neutrophils (%) (Auto) 93 H 42-75 % Lymphocytes (%) (Auto) 2 L 12-44 % Monocytes (%) (Auto) 5 0-12 % Eosinophils (%) (Auto) 0 0-10 % Basophils (%) (Auto) 0 0-10 % Neutrophils # (Auto) 14.5 H 1.8-7.8 X 10^3 Lymphocytes # (Auto) 0.2 L 1.0-4.0 X 10^3 Monocytes # (Auto) 0.8 0.0-1.0 X 10^3 Eosinophils # (Auto) 0.0 0.0-0.3 10^3/uL Basophils # (Auto) 0.0 0.0-0.1 10^3/uL Neutrophils % (Manual) 81 % Lymphocytes % (Manual) 1 % Monocytes % (Manual) 1 % Eosinophils % (Manual) 0 % Basophils % (Manual) 0 % Band Neutrophils 17 % Anisocytosis SLIGHT Prothrombin Time 19.1 H 12.2-14.7 SEC INR Comment 1.6 H 0.8-1.4 Activated Partial Thromboplast Time 44 H 24-35 SEC Sodium Level 136 135-145 MMOL/L Potassium Level 3.6 3.6-5.0 MMOL/L Chloride Level 98 98-107 MMOL/L Carbon Dioxide Level 27 21-32 MMOL/L Anion Gap 11 5-14 MMOL/L Blood Urea Nitrogen 22 H 7-18 MG/DL Creatinine 7.43 H 0.60-1.30 MG/DL Estimat Glomerular Filtration Rate 7 BUN/Creatinine Ratio 3 Glucose Level 108 H 70-105 MG/DL Lactic Acid Level 1.62 0.50-2.00 MMOL/L Calcium Level 10.7 H 8.5-10.1 MG/DL Total Bilirubin 0.5 0.1-1.0 MG/DL Aspartate Amino Transf (AST/SGOT) 10 5-34 U/L Alanine Aminotransferase (ALT/SGPT) 8 0-55 U/L Alkaline Phosphatase 67 40-136 U/L Total Protein 5.9 L 6.4-8.2 GM/DL Albumin 3.1 L 3.2-4.5 GM/DL Micro Results Microbiology 09/19/17 Influenza Types A,B Antigen (LUPILLO) - Final, Complete My Orders Orders - BILL GALVAN MD Iv 1000 Ml (Sodium Chloride 0.9%) (09/19/17 07:17) Fentanyl Injection (Sublimaze Injection (09/19/17 07:19) Cbc With Automated Diff (09/19/17 07:24) Comprehensive Metabolic Panel (09/19/17 07:24) Lactic Acid Analyzer (09/19/17 07:24) Blood Culture (09/19/17 07:24) Sputum Culture (09/19/17 07:24) Ua Culture If Indicated (09/19/17 07:24) Protime With Inr (09/19/17 07:24) Partial Thromboplastin Time (09/19/17 07:24) Chest 1 View, Ap/Pa Only (09/19/17 07:24) O2 (09/19/17 07:24) Saline Lock/Iv-Start (09/19/17 07:24) Vital Signs Adult Sepsis Patie Q1H (09/19/17 07:24) Remove Rings In Anticipation O (09/19/17 07:24) Ns Iv 1000 Ml (Sodium Chloride 0.9%) (09/19/17 07:24) Fentanyl Injection (Sublimaze Injection (09/19/17 07:24) Hydromorphone Injection (Dilaudid Inject (09/19/17 08:12) Manual Differential (09/19/17 08:00) Ondansetron Injection (Zofran Injectio (09/19/17 08:15) Influenza A And B Antigens (09/19/17 08:40) Ct Chest Wo (09/19/17 09:04) Medications Given in ED Current Medications Medications Dose Ordered Sig/David Route Start Time Stop Time Status Last Admin Dose Admin Ondansetron HCl 4 mg STK-MED ONCE .ROUTE 09/19/17 08:15 09/19/17 08:20 DC 09/19/17 08:21 4 MG Sodium Chloride 1,000 ml @ 0 mls/hr Q0M ONCE IV 09/19/17 07:24 09/19/17 07:26 DC 09/19/17 08:21 1,000 MLS/HR Vital Signs/I&O 09/19/17 06:39 Temp 98.5 Pulse 115 Resp 18 B/P (MAP) 147/62 (90) Pulse Ox 88 O2 Delivery Room Air Capillary Refill : Less Than 3 Seconds Blood Pressure Mean: 90 Progress Note : Progress Note Seen and evaluated. IV, labs, UA, blood cultures, lactic acid and chest x-ray ordered. Normal saline 1 L bolus due to tachycardia. He is a dialysis patient but has not been eating or drinking well and has had diarrhea. Family has had discussion about hospice. Pending evaluation. 0900: Williams Galvan, palliative care nurse here and will evaluate and is currently having discussion with patient and family. We will get CT of the chest to evaluate for worsening of cancer and concerns about pneumonia. There is a discussion about if we should continue aggressive therapy or switch to hospice which is been discussed currently. Patient did receive fentanyl 50 g IV for pain which did not help much. Dilaudid 0.5 mg IV given for pain afterwards for the pain in his back and that did help. Patient also received Zofran 4 mg IV for nausea which has helped some. 1030: I did discuss my concerns with the patient and family regarding the worsening pneumonia and the likelihood that the mass as again cause postobstructive pneumonia. There appears to be infiltrate involving both lungs now. Noncontrast scan discuss some limitations but certainly this is more concerning given his known history of metastatic disease. I did have a long discussion with the family. At this point they would like to pursue hospice and have the patient go home for end-of-life care. I think this is a very appropriate option and support this. Hospice process is being set up by Williams Galvan RN. 1130: [facility] will set up home equipment and likely have that completed by 1 p.m. Patient will enter hospice after arriving home. Patient will require EMS transport back to home due to bedbound state and the requirement for oxygen as well as the pain associated with moving and sitting up. Family informed. All questions answered. Diagnostic Imaging Diagonstic Imaging: Xray Plain Films/CT/US/NM/MRI: chest Comments %(RAD)RES..mtdd.print.filter("cj")VIA [facility] %(RAD)RES..mtdd.print.filter("cj")[place], [place] NAME: LIZ DIANA [facility] REC#: [id number] PT STATUS: REG ER : 1940 PHYSICIAN: BILL GALVAN MD ADMIT DATE: 09/19/17/ER Draft Date of Exam:09/19/17 CHEST 1 VIEW, AP/PA ONLY INDICATION: Fever nausea with vomiting and diarrhea. Time of exam 8:09 AM Correlation is made with prior study 07/23/2017. The heart size is stable. Right upper lobe airspace consolidation persists and appears to be slightly worse when compared with the prior exam. The remaining lung thomason are clear. The pulmonary vascularity is normal. No effusion is identified. No pneumothorax is identified. IMPRESSION: Slight worsening of right upper lobe infiltrate when compared examination from 2 months earlier. Continued followup to confirm clearing is recommended. If this does not resolve, consideration should be given to repeating a chest CT with IV contrast to evaluate the mediastinum and right hilum for an obstructive process. Dictated on workstation # [id number] Dict: 09/19/17813 Trans: 09/19/1724 [facility] [id number] Interpreted by: ANU ARCE MD Electronically signed by: Reviewed: Reviewed by Dc Diagonstic Imaging: CT Plain Films/CT/US/NM/MRI: chest Comments %(RAD)RES..mtdd.print.filter("cj")VIA [facility] %(RAD)RES..mtdd.print.filter("cj")[place], [place] NAME: LIZ DIANA [facility] REC#: [id number] PT STATUS: REG ER : 1940 PHYSICIAN: BILL GALVAN MD ADMIT DATE: 09/19/17/ER Draft Date of Exam:09/19/17 CT CHEST WO PROCEDURE: CT chest without contrast. TECHNIQUE: Multiple contiguous axial images were obtained through the chest without the use of intravenous contrast. INDICATION: Stage IV lung cancer. Comparison is made with prior CT chest from 07/18/2017. No axillary lymphadenopathy is identified. Hilar and mediastinal evaluation is limited without intravenous contrast. There is calcification in the right hilum suggestive of prior granulomatous exposure. No discrete hilar or mediastinal mass is detected. There are coronary arterial calcifications present. No pericardial fluid is seen. There is trace pleural fluid bilaterally. Parenchymal evaluation does show extensive airspace consolidation in the right upper lobe. The degree of consolidation has increased since prior study. No cavitation or abscess is seen. There also appears to be development of airspace infiltrates in the posterior portions of bilateral lower lobes, new when compared with prior CT. Left upper lobe is clear. Central airways are patent. The upper abdomen is unremarkable. IMPRESSION: 1. Increasing consolidation of right upper lobe infiltrate with development of bilateral lower lobe airspace infiltrates consistent with worsening pneumonia. No definite mediastinal or hilar obstructing lesion is seen although study is somewhat compromised due to absence of intravenous contrast. Dictated on workstation # [id number] Dict: 09/19/17 0949 Trans: 09/19/[address] [facility] [id number] Interpreted by: ANU ARCE MD Electronically signed by: Reviewed: Reviewed by Me Departure Impression Primary Impression: Lung cancer Qualified Codes: C34.01 - Malignant neoplasm of right main bronchus Additional Impressions: End stage renal disease on dialysis History of liver transplant Bilateral pneumonia Qualified Codes: J18.9 - Pneumonia, unspecified organism Disposition: HOME, SELF-CARE Condition: Stable Departure-Patient Inst. Decision time for Depature: 11:40 Referrals: RAYA PIKE DO (PCP/Family) Primary Care Physician Patient Instructions: Lung Cancer (DC), Pneumonia, Adult (DC) Add. Discharge Instructions: All discharge instructions reviewed with patient and/or family. Voiced understanding. You are going home on hospice. [facility] this will have your equipment set up as well as having comfort meds at your home. Return for other concerns as needed. BILL GALVAN MD Sep 19, 2017 09:02
--- NOTE | 2017-09-19 09:58 | Diagnostic Imaging Report ---
PROCEDURE: CT chest without contrast. TECHNIQUE: Multiple contiguous axial images were obtained through the chest without the use of intravenous contrast. INDICATION: Stage IV lung cancer. Comparison is made with prior CT chest from 07/18/2017. No axillary lymphadenopathy is identified. Hilar and mediastinal evaluation is limited without intravenous contrast. There is calcification in the right hilum suggestive of prior granulomatous exposure. No discrete hilar or mediastinal mass is detected. There are coronary arterial calcifications present. No pericardial fluid is seen. There is trace pleural fluid bilaterally. Parenchymal evaluation does show extensive airspace consolidation in the right upper lobe. The degree of consolidation has increased since prior study. No cavitation or abscess is seen. There also appears to be development of airspace infiltrates in the posterior portions of bilateral lower lobes, new when compared with prior CT. Left upper lobe is clear. Central airways are patent. The upper abdomen is unremarkable. IMPRESSION: 1. Increasing consolidation of right upper lobe infiltrate with development of bilateral lower lobe airspace infiltrates consistent with worsening pneumonia. No definite mediastinal or hilar obstructing lesion is seen although study is somewhat compromised due to absence of intravenous contrast. Dictated by: Dictated on workstation # [id number]
[2017-09-19] MEDS ORDERED: HYDROmorphone 2 MG/ML VIAL (DILAUDID) IVP PRN ×2 (12:00→14:30)
[2017-09-19 14:26] VITALS: BP 150/74
== END 2017-09-19 14:26 | disposition home or self-care (01) ==
LOC: EDUNIT# 06:39 → ER 06:41
DX: C34.90 Malignant neoplasm of unspecified part of unspecified bronchus or lung (principal); C79.9 Secondary malignant neoplasm of unspecified site; E11.40 Type 2 diabetes mellitus with diabetic neuropathy, unspecified; E11.22 Type 2 diabetes mellitus with diabetic chronic kidney disease; I12.0 Hypertensive chronic kidney disease with stage 5 chronic kidney disease or end stage renal disease; N18.6 End stage renal disease; E78.00 Pure hypercholesterolemia, unspecified; J43.9 Emphysema, unspecified; K21.9 Gastro-esophageal reflux disease without esophagitis; Z87.19 Personal history of other diseases of the digestive system; Z85.828 Personal history of other malignant neoplasm of skin; Z94.4 Liver transplant status; Z99.2 Dependence on renal dialysis; Z98.890 Other specified postprocedural states; Z87.891 Personal history of nicotine dependence; Z79.82 Long term (current) use of aspirin
CPT/HCPCS: 36415; 71045; 71250; 80053; 83605; 85007; 85027; 85610; 85730; 87040; 87804; 96361; 96374; 96375; 96376